=== PATIENT | male | born 1975 | race Caucasian/White ===

== ENCOUNTER 2024-02-16 17:37 | Emergency (ER) | payer OTHER, SELFPAY ==
--- NOTE | ~2024-02-16 | CT_ITS ---
CLINICAL INDICATION: Anemia. Now with black tarry stool since colonoscopy was performed one week karoline ier. COMPARISON: None. TECHNIQUE: Multiple contiguous axial images of the abdomen and pelvis were performed following the ad ministration of with 100 mL Omnipaque-350 intravenous contrast The dose-length product (DLP) was 644.66 mGy-cm. Automated exposure control and iterative reconstruction technique were employed. FINDINGS/OBSERVATIONS: Visualized lower thorax: Indeterminate density within the superior segment of the left lower lobe on the first cut of the CT e xamination, incompletely evaluated. The remainder of the bilateral lung bases are clear. The heart is of normal size, without pericardial effusion. Liver: The liver enhances homogeneously, and is not enlarged measuring 15 cm in longitudinal dimension. Gallbladder and biliary system: The gallbladder is surgically absent. Pancreas: The pancreas enhances homogeneously without ductal dilatation. Spleen: The spleen enhances homogeneously and is not enlarged measuring 10 cm in longitudinal dimension. Kidneys: The bilateral kidneys enhance symmetrically without hydronephrosis or renal calculi. Adrenal glands: Unremarkable. Gastrointestinal tract: Mural thickening within the distal sigmoid colon with trace surrounding inflammatory change. Appendix: The air-filled appendix is of normal caliber (axial series, images 139 and 140) Vasculature: Unremarkable. No aneurysmal dilatation or significant stenosis. Lymph nodes: No pathologically enlarged or morphologically suspicious lymph nodes within the retroperitoneum or at the root of the mesentery. Pelvic structures: The bladder is distended, and otherwise unremarkable. The prostate gland is not enlarged. Body wall and musculoskeletal: Small fat-containing umbilical hernia. No significant degenerative disease within the lower thoracic or lumbosacral spine. IMPRESSION: Findings suggestive of a focal enteritis within the sigmoid colon, as detailed above. No findings to suggest GI hemorrhage, as detailed above. Reviewed, dictated and finalized at location A. [facility] [employer]
[2024-02-16 18:12] VITALS: BP 112/72; PULSE 74; RESP 16; TEMP 36.1; O2SAT 100
--- NOTE | 2024-02-16 18:17 | ED.DIZZY ---
HPI - Dizziness General Chief Complaint: Dizziness <ROSHAN Garcia Last Filed: 02/16/24 18:36> Stated Complaint: dizzy since recent colonoscopy <ROSHAN Garcia Last Filed: 02/16/24 18:36> Time Seen by Provider: 02/16/24 18:17 <ROSHAN Garcia Last Filed: 02/16/24 18:36> Focused HPI: Patient is a 48 y/o male who presents to the ED with c/o abdominal pain and nausea. Patient reports he was recently found to be anemic and underwent endoscopy/colonoscopy last Tuesday by Dr. Méndez at [facility]. Hemorrhoids were found and banded at that time. Otherwise biopsies have come back negative so far. Patient reports he has not been feeling well since then. Complains of weakness, nausea, rectal pain, burning pain in his upper abdomen, black tarry stools, some bright red bleeding noticed when he placed hemorrhoid cream internally. He has had decreased PO intake but states he forced himself to eat a sausage egg and cheese sandwich from [employer] this morning. Patient is currently on Nexium. Was also started on pepcid and carafate today. Denies vomiting, fevers. GENERAL: Well-appearing, well-nourished, and in no acute distress. HEAD: Normocephalic, atraumatic. CHEST: Clear to auscultation. ?No respiratory distress. HEART: Regular rate and rhythm.? ABD: Mild ttp in LLQ and epigastric region. No rebound. NEURO: ?Alert and oriented x3. Patient screened in triage and initial orders placed.? ?Additional care and disposition to be based upon?diagnostic testing and treatment. <ROSHAN Garcia Last Filed: 02/16/24 18:36> Source: patient <ROSHAN Garcia Last Filed: 02/16/24 18:36> Mode of arrival: ambulatory <ROSHAN Garcia Last Filed: 02/16/24 18:36> Limitations: no limitations <ROSHAN Garcia Last Filed: 02/16/24 18:36> History of Present Illness HPI Narrative: Agree with HPI above. <Soy Floyd MD - Last Filed: 02/17/24 01:17> Related Data Allergies/Adverse Reactions: Allergies Allergy/AdvReac Type Severity Reaction Status Date / Time propranolol AdvReac Dizziness Verified 02/16/24 20:34 pseudoephedrine AdvReac Hypertensio Verified 02/16/24 20:34 [facility] n <Gissel Groves PA-C - Last Filed: 02/16/24 18:36> Review of Systems Review of Systems: Endorses nausea without vomiting. No abdominal pain, no chest pain, shortness a breath, fever, chills, constipation, dysuria. <Soy Floyd MD - Last Filed: 02/17/24 01:17> All systems reviewed & are unremarkable except as noted in HPI and below (MSE) <Soy Floyd MD - Last Filed: 02/17/24 01:17> Exam Narrative: GENERAL: [Well-appearing, well-nourished, and in no acute distress.] HEAD: [Normocephalic, atraumatic.] EYES: [PERRLA and EOMI.] ENT: Nares clear, no rhinorrhea or epistaxis. Mucous membranes moist. NECK: Supple. CHEST: [Clear to auscultation. No respiratory distress.] HEART: [Regular rate and rhythm]. No murmur heard. [Normal peripheral pulses.] ABDOMEN: [Soft, nondistended], [nontender], [No rigidity or guarding] EXTREMITIES: Normal range of motion. [No edema.] SKIN: Warm, dry, no rash. NEURO: [No focal deficits]. Alert and oriented [x3.] PSYCH: [Normal mood and affect.] <Soy Floyd MD - Last Filed: 02/17/24 01:17> Course Vital Signs Vital signs: Vital Signs Temperature 36.1 C L 02/16/24 18:12 Pulse Rate 74 02/16/24 18:12 Respiratory Rate 16 02/16/24 18:12 Blood Pressure 112/72 02/16/24 18:12 Pulse Oximetry 100 02/16/24 18:12 Oxygen Delivery Room Air 02/16/24 18:12 Temperature 36.1 C L 02/16/24 18:12 Pulse Rate 88 02/16/24 22:55 Respiratory Rate 18 02/16/24 22:55 Blood Pressure 128/78 02/16/24 22:55 Pulse Oximetry 100 02/16/24 22:55 Oxygen Delivery Room Air 02/16/24 18:12 <Gissel Groves PA-C - Last Filed: 02/16/24 18:36> Vital Signs Temperature 36.1 C L 02/16/24 18:12 Pulse Rate 74 02/16/24 18:12 Respiratory Rate 16 02/16/24 18:12 Blood Pressure 112/72 02/16/24 18:12 Pulse Oximetry 100 02/16/24 18:12 Oxygen Delivery Room Air 02/16/24 18:12 Temperature 36.1 C L 02/16/24 18:12 Pulse Rate 88 02/16/24 22:55 Respiratory Rate 18 02/16/24 22:55 Blood Pressure 128/78 02/16/24 22:55 Pulse Oximetry 100 02/16/24 22:55 Oxygen Delivery Room Air 02/16/24 18:12 <Soy Floyd MD - Last Filed: 02/17/24 01:17> MDM - Dizziness MDM Narrative Medical decision making narrative: MSE by [facility] in triage. <Gissel Groves PA-C - Last Filed: 02/16/24 18:36> MSE by [facility] in triage. 48-year-old male with recent endoscopy and colonoscopy 8 days prior at outside facility. He had hemorrhoids band that were internal. He had an initial anemia that prompted him to get endoscopy by his GI doctor. He also had biopsies done and was found to have chronic gastritis. Patient has been on PPI for over 10 years. Patient reports lightheaded feeling, dizziness and black tarry stools, onset of the symptoms were after his colonoscopy and endoscopy with banding. He otherwise appears well not any acute distress and has normal vital signs without any tachycardia, fever, hypoxia or blood pressure concerns. Soft not tender nondistended abdomen overall appears well. Does report mild nausea and headache presently. Differential diagnosis does include GI bleeding from his recent internal hemorrhoids, peptic ulcer disease, colitis, diverticulitis. Less likely active GI bleeding given his stable vitals and duration of symptoms. Blood work was obtained and a CT scan with contrast was ordered. He was given Reglan, diphenhydramine, fluid bolus and Tylenol for his symptom control. started on Protonix here in the ED. Patient's laboratory studies are reassuring, no leukocytosis with a white count of 5.2. Hemoglobin is 11.4 and stable from his baseline levels according to the patient. Microcytic with MCV of 77. Normal platelets. Electrolyte panel within normal limits, normal renal and hepatic function panel. Negative lipase Patient CT scan shows evidence of focal enteritis within the sigmoid colon, no evidence of GI hemorrhage or bleeding. Patient was re-evaluated had symptomatic improvement after medications and therapies. I discussed the CT findings with him and discussion on treatment plans including potential for antibiotics. He states he was treated for colitis before with very similar findings success with antibiotics. Will start him on Rocephin here in the ED and sent home with Augmentin. Patient has a GI doctor that he sees outpatient and I instructed him to follow-up with them and his primary care provider on a short-term basis or return with any new or worsening symptoms including lightheadedness, dizziness, syncope, abdominal pain, bloody bowel movements. Patient expressed understanding of these instructions and was stable for discharge at this time. Patient's repeat vital signs were normal. <Soy Floyd MD - Last Filed: 02/17/24 01:17> Medical Records Attestation: I reviewed the patient's medical records. <Soy Floyd MD - Last Filed: 02/17/24 01:17> Lab Data Attestation: I reviewed the patient's lab results. <Soy Floyd MD - Last Filed: 02/17/24 01:17> Result diagrams: 02/16/24 20:35 02/16/24 20:35 <Gissel Grovse PA-C - Last Filed: 02/16/24 18:36> Labs: Lab Results 02/16/24 Range/Units 20:35 WBC 5.2 (4.5-10.0) K/mm3 RBC 4.86 (4.6-6.20) M/mm3 Hgb 11.4 L (14.0-18.0) g/dL Hct 37.4 L (42.0-52.0) % MCV 77.0 L (80-100) fl MCH 23.5 L (26-34) pg MCHC 30.5 L (32-36) g/dl RDW 17.9 H (11.5-14.5) % Plt Count 321 (150-375) k/mm3 MPV 9.8 (7.4-10.4) fl Immature Gran % (Auto) 0.2 (0-0.5) % Neut % (Auto) 52.7 (45.5-73.1) % Lymph % (Auto) 35.6 (18.3-44.2) % [place] % (Auto) 9.4 H (2.6-8.5) % Eos % (Auto) 1.5 (0-4.4) % Baso % (Auto) 0.6 (0.2-1.2) % Lymph # (Auto) 1.86 (0.9-3.2) K/mm3 [place] # (Auto) 0.5 (0.1-0.6) K/mm3 Eos # (Auto) 0.1 (0-0.3) K/mm3 Baso # (Auto) 0.0 (0.0-0.1) K/mm3 Abs Immat Gran (auto) 0.01 (0.00-0.031) K/mm3 Absolute Neuts (auto) 2.8 (1.3-6.7) K/mm3 Absolute Nucleated RBC 0.000 (0.0-0.012) K/mm3 Nucleated RBC % 0.0 (0.0-0.2) % Sodium 139 (137-145) mmol/L Potassium 3.8 (3.4-5.0) mmol/L Chloride 103 (98-107) mmol/L Carbon Dioxide 29 (22-30) mmol/L Anion Gap 7 (4-12) mmol/L BUN 16 (9-20) mg/dL Creatinine 1.00 (0.7-1.3) mg/dL Estim Creat Clear Calc 92 ml/min Estimated GFR > 60 (59 - ) Glucose 92 (65-110) mg/dL Calcium 9.2 (8.4-10.2) mg/dL Magnesium 2.2 (1.6-2.3) mg/dL Total Bilirubin 0.5 (0.2-1.3) mg/dL AST 25 (17-59) U/L ALT 20 (6-50) U/L Alkaline Phosphatase 60 (38-126) U/L Total Protein 8.0 (6.3-8.2) g/dL Albumin 4.3 (3.5-5.1) g/dL Lipase 56 (23-300) U/L <Gissel Groves PA-C - Last Filed: 02/16/24 18:36> Lab Results 02/16/24 Range/Units 20:35 WBC 5.2 (4.5-10.0) K/mm3 RBC 4.86 (4.6-6.20) M/mm3 Hgb 11.4 L (14.0-18.0) g/dL Hct 37.4 L (42.0-52.0) % MCV 77.0 L (80-100) fl MCH 23.5 L (26-34) pg MCHC 30.5 L (32-36) g/dl RDW 17.9 H (11.5-14.5) % Plt Count 321 (150-375) k/mm3 MPV 9.8 (7.4-10.4) fl Immature Gran % (Auto) 0.2 (0-0.5) % Neut % (Auto) 52.7 (45.5-73.1) % Lymph % (Auto) 35.6 (18.3-44.2) % [place] % (Auto) 9.4 H (2.6-8.5) % Eos % (Auto) 1.5 (0-4.4) % Baso % (Auto) 0.6 (0.2-1.2) % Lymph # (Auto) 1.86 (0.9-3.2) K/mm3 [place] # (Auto) 0.5 (0.1-0.6) K/mm3 Eos # (Auto) 0.1 (0-0.3) K/mm3 Baso # (Auto) 0.0 (0.0-0.1) K/mm3 Abs Immat Gran (auto) 0.01 (0.00-0.031) K/mm3 Absolute Neuts (auto) 2.8 (1.3-6.7) K/mm3 Absolute Nucleated RBC 0.000 (0.0-0.012) K/mm3 Nucleated RBC % 0.0 (0.0-0.2) % Sodium 139 (137-145) mmol/L Potassium 3.8 (3.4-5.0) mmol/L Chloride 103 (98-107) mmol/L Carbon Dioxide 29 (22-30) mmol/L Anion Gap 7 (4-12) mmol/L BUN 16 (9-20) mg/dL Creatinine 1.00 (0.7-1.3) mg/dL Estim Creat Clear Calc 92 ml/min Estimated GFR > 60 (59 - ) Glucose 92 (65-110) mg/dL Calcium 9.2 (8.4-10.2) mg/dL Magnesium 2.2 (1.6-2.3) mg/dL Total Bilirubin 0.5 (0.2-1.3) mg/dL AST 25 (17-59) U/L ALT 20 (6-50) U/L Alkaline Phosphatase 60 (38-126) U/L Total Protein 8.0 (6.3-8.2) g/dL Albumin 4.3 (3.5-5.1) g/dL Lipase 56 (23-300) U/L <Soy Floyd MD - Last Filed: 02/17/24 01:17> Imaging Data Attestation: I personally reviewed and interpreted this imaging study as follows: <Soy Floyd MD - Last Filed: 02/17/24 01:17> Radiologist's impression: Impressions Abdomen/Pelvis CT 02/16/24 21:39 IMPRESSION: Findings suggestive of a focal enteritis within the sigmoid colon, as detailed above. No findings to suggest GI hemorrhage, as detailed above. <Soy Floyd MD - Last Filed: 02/17/24 01:17> Discharge Plan Discharge Clinical Impression: Enteritis, History of GI bleed <Gissel Groves PA-C - Last Filed: 02/16/24 18:36> Patient Disposition: Home, Self-Care <Gissel Groves PA-C - Last Filed: 11/07/24 18:36> Condition: Stable <Gissel Groves PA-C - Last Filed: 02/16/24 18:36> Instructions: Antibiotic Form, Infectious Colitis (ED), Enteritis (ED) <Gissel Groves PA-C - Last Filed: 02/16/24 18:36> Additional Instructions: We will send you home with a 7 day course of antibiotics. Follow-up with your primary care provider and GI doctor outpatient. Return with any new or worsening symptoms or new concerns. <Gissel Groves PA-C - Last Filed: 02/16/24 18:36> Prescriptions: New amoxicillin-pot clavulanate 875-125 mg tablet 1 tablet PO Q12H 7 Days Qty: 14 0RF <Gissel Groves PA-C - Last Filed: 02/16/24 18:36> Follow-up/Referrals: PHYSICIAN,NETWORK LIAISON [Non-Staff] - <Gissel Groves PA-C - Last Filed: 02/16/24 18:36> Time of Disposition: 22:19 <Gissel Groves PA-C - Last Filed: 02/16/24 18:36> 22:19 <Soy Floyd MD - Last Filed: 02/17/24 01:17>
[2024-02-16 20:45] LABS: Basophils Percent Auto 0.6 % (0.2-1.2); Eosinophils Absolute Auto 0.1 K/mm3 (0-0.3); Eosinophils Percent Auto 1.5 % (0-4.4); Hematocrit 37.4 % (42.0-52.0); Hemoglobin 11.4 g/dL (14.0-18.0); Immature Granulocyte Absolute 0.01 K/mm3 (0.00-0.031); Immature Granulocyte Percent A 0.2 % (0-0.5); Lymphocytes Absolute Auto 1.86 K/mm3 (0.9-3.2); Lymphocytes Percent Auto 35.6 % (18.3-44.2); Mean Corpuscular HGB Conc 30.5 g/dl (32-36); Mean Corpuscular Hemoglobin 23.5 pg (26-34); Mean Platelet Volume 9.8 fl (7.4-10.4); Monocytes Absolute Auto 0.5 K/mm3 (0.1-0.6); Monocytes Percent Auto 9.4 % (2.6-8.5); Neutrophils Absolute Auto 2.8 K/mm3 (1.3-6.7); Neutrophils Percent Auto 52.7 % (45.5-73.1); Platelet Count Result 321 k/mm3 (150-375); Red Blood Count 4.86 M/mm3 (4.6-6.20); Red Cell Distribution Width 17.9 % (11.5-14.5); White Blood Count 5.2 K/mm3 (4.5-10.0)
[2024-02-16] MEDS: SODIUM CHLORIDE 0.9% IV 1,000 ML 999 ML IV CONT (20:53)
[2024-02-16] MEDS: PANTOPRAZOLE SODIUM IV 40 MG VIAL IV PUSH (20:54)
[2024-02-16] MEDS: diphenhydrAMINE HCl INJ 50 MG/ML VIAL 25 MG IV PUSH (20:54)
[2024-02-16] MEDS: ACETAMINOPHEN 500 MG TABLET 1000 MG PO (20:54)
[2024-02-16] MEDS: METOCLOPRAMIDE HCL INJ 10 MG/2 ML VIAL IV PUSH (20:54)
[2024-02-16 20:56] LABS: Alanine Aminotransferase 20 U/L (6-50); Albumin Level 4.3 g/dL (3.5-5.1); Alkaline Phosphatase 60 U/L (38-126); Anion Gap 7 mmol/L (4-12); Aspartate Amino Transferase 25 U/L (17-59); Bilirubin,Total 0.5 mg/dL (0.2-1.3); Blood Urea Nitrogen 16 mg/dL (9-20); Calcium 9.2 mg/dL (8.4-10.2); Carbon Dioxide 29 mmol/L (22-30); Chloride 103 mmol/L (98-107); Estimated CRCL calculation 92 ml/min; Estimated Glomerular Filt Rate > 60; Glucose 92 mg/dL (65-110); Lipase 56 U/L (23-300); Magnesium 2.2 mg/dL (1.6-2.3); Potassium 3.8 mmol/L (3.4-5.0); Sodium 139 mmol/L (137-145)
[2024-02-16 21:11] VITALS: BP 120/77; PULSE 81; PULSE 85; RESP 18; O2SAT 100
--- NOTE | 2024-02-16 22:37 | PC.NURSE ---
Dr. Tijerina verbalizes no need to draw blood cultures before administering antibiotics.
--- NOTE | 2024-02-16 22:54 | PC.NURSE ---
Urine was collected. Dr. Tijerina states he does not need urine sample anymore due to pt discharge.
[2024-02-16 22:55] VITALS: BP 128/78; PULSE 88; RESP 18; O2SAT 100
== END 2024-02-16 22:57 | disposition home or self-care (01) ==
PROVIDERS: Physician Assistant; Emergency Provider Student in an Organized Health Care Education/Training Program
DX: K52.9 Noninfective gastroenteritis and colitis, unspecified (principal)
CPT/HCPCS: 36415; 74177; 80053; 83690; 83735; 85025; 96361; 96365; 96375; 99284; A9270; J0696; J1200; J2470; J2765; J7030; Q9967

== ENCOUNTER 2024-03-16 15:49 | Emergency (ER) | payer OTHER, SELFPAY ==
--- NOTE | ~2024-03-16 | CT_ITS ---
CT abdomen pelvis w con Ordering provider: Gissel Groves PA-C History: 48 years Male with . colitis/enteritis, diarrhea, abd pain . Comparison: None. Technique: CT abdomen and pelvis with IV and without oral contrast. Automated exposure control and it erative reconstruction technique were employed. The dose-length product was 796.39 mGy-cm. 100 mL Omnipaque 350 was given IV. Findings: VISUALIZED LOWER CHEST: Minimal dependent atelectatic changes. UPPER ABDOMINAL ORGANS: Liver: Fat infiltration. Gallbladder: Status post cholecystectomy. Spleen: Normal. Stomach/duodenum: Normal. Pancreas: Normal. Adrenals: Normal. Kidneys: Normal. PELVIC ORGANS: The bladder is normal. BOWEL AND MESENTERY: Colon: No evidence of diverticulitis.. Fecal material is loaded in the colon. Normal appendix. Small Bowel: Normal. No obstruction. Peritoneum/mesentery: No free air or free fluid. No mesenteric lymphadenopathy. RETROPERITONEUM: Normal aorta. Atherosclerotic changes of the right iliac artery. No retroperitonea l lymphadenopathy. MUSCULOSKELETAL: Superficial soft tissues: The superficial soft tissues are normal. Bones: Normal spine. IMPRESSION: 1. No evidence of appendicitis, diverticulitis or intestinal obstruction. 2. Fat infiltration of the liver. Reviewed, dictated and finalized at location A. [employer]
[2024-03-16 15:51] VITALS: BP 117/74; PULSE 61; RESP 16; TEMP 36.3; O2SAT 100
--- NOTE | 2024-03-16 16:57 | ED_ITS ---
HPI - Abdominal Pain General Chief Complaint: Abdominal Pain <ROSHAN Garcia Last Filed: 03/16/24 17:09> Stated Complaint: worsening colitis <ROSHAN Garcia Last Filed: 03/16/24 17:09> Time Seen by Provider: 03/16/24 16:57 <ROSHAN Garcia Last Filed: 03/16/24 17:09> Focused HPI: Patient is a 48 y/o male who presents to the ED with c/o diarrhea and abdominal pain. Patient reports he has been having abdominal issues since the beginning of February after a colonoscopy. He has been seeing Dr. Méndez with GI at [facility]. States he was seen here on 02/19 and diagnosed with colitis/enteritis. Was rx'd Augmentin at that time. States symptoms have been worsening since this week. He saw a GI on Tuesday and was started on Cefdinir and Flagyl. Denies any improvement of symptoms since then. Complains of persistent diarrhea, nausea with dry heaving, midline abdominal pain, abdominal bloating, dizziness/lightheadedness, fatigue. Reports intermittent dark red blood mixed in with stool. Denies fevers. GENERAL: Well-appearing, well-nourished, and in no acute distress. HEAD: Normocephalic, atraumatic. CHEST: Clear to auscultation. ?No respiratory distress. HEART: Regular rate and rhythm.? ABD: Mild diffuse tenderness throughout upper abdomen. Nondistended. Mildly hyperactive BS NEURO: ?Alert and oriented x3. Patient screened in triage and initial orders placed.? ?Additional care and disposition to be based upon?diagnostic testing and treatment. <ROSHAN Garcia Last Filed: 03/16/24 17:09> Source: patient and old records reviewed <ROSHAN Garcia Last Filed: 03/16/24 17:09> Mode of arrival: ambulatory <ROSHAN Garcia Last Filed: 03/16/24 17:09> Limitations: no limitations <ROSHAN Garcia Last Filed: 03/16/24 17:09> History of Present Illness HPI narrative: Patient 48-year-old gentleman presents emergency department chief complaint of diarrhea and abdominal pain. Patient reports he is followed by GI and palpable more ill and has been having diarrhea and abdominal pain. The patient was started on Flagyl and cefdinir by GI and they were attempting to get a CT scan as an outpatient patient was unable to get pre authorization from his insurance in a timely manner and given the significant pain was sent to the emergency department for evaluation. <Narendra Boo MD - Last Filed: 03/16/24 22:53> Related Data Allergies/Adverse Reactions: Allergies Allergy/AdvReac Type Severity Reaction Status Date / Time propranolol AdvReac Dizziness Verified 03/16/24 15:50 pseudoephedrine AdvReac Hypertensio Verified 03/16/24 15:50 [From Sudafed] n <Gissel Groves PA-C - Last Filed: 03/16/24 17:09> Review of Systems Review of Systems: A 10 system review of systems was completed on the patient and is negative except for what is stated in the HPI. Nursing and ancillary documentation was reviewed. <Narendra Boo MD - Last Filed: 03/16/24 22:53> Exam Narrative: GENERAL: Well-appearing, well-nourished, and in no acute distress. HEAD: Normocephalic, atraumatic. EYES: PERRLA and EOMI. ENT: Nares clear, no rhinorrhea or epistaxis. Mucous membranes moist. NECK: Supple. CHEST: Clear to auscultation. No respiratory distress. HEART: Regular rate and rhythm. No murmur heard. Normal peripheral pulses. ABDOMEN: Soft, diffusely tender to palpation, nondistended, normal active bowel sounds. EXTREMITIES: Normal range of motion. No edema. SKIN: Warm, dry, no rash. NEURO: No focal deficits. Alert and oriented x3. PSYCH: Normal mood and affect. <Narendra Boo MD - Last Filed: 03/16/24 22:53> Course Vital Signs Vital signs: Vital Signs Temperature 36.3 C L 03/16/24 15:51 Pulse Rate 61 03/16/24 15:51 Respiratory Rate 16 03/16/24 15:51 Blood Pressure 117/74 03/16/24 15:51 Pulse Oximetry 100 03/16/24 15:51 Oxygen Delivery Room Air 03/16/24 15:51 Temperature 36.3 C L 03/16/24 15:51 Pulse Rate 53 L 03/16/24 22:00 Respiratory Rate 18 03/16/24 22:00 Blood Pressure 112/75 03/16/24 19:56 Pulse Oximetry 100 03/16/24 22:00 Oxygen Delivery Room Air 03/16/24 15:51 <Gissel Groves PA-C - Last Filed: 03/16/24 17:09> Vital Signs Temperature 36.3 C L 03/16/24 15:51 Pulse Rate 61 03/16/24 15:51 Respiratory Rate 16 03/16/24 15:51 Blood Pressure 117/74 03/16/24 15:51 Pulse Oximetry 100 03/16/24 15:51 Oxygen Delivery Room Air 03/16/24 15:51 Temperature 36.3 C L 03/16/24 15:51 Pulse Rate 53 L 03/16/24 22:00 Respiratory Rate 18 03/16/24 22:00 Blood Pressure 112/75 03/16/24 19:56 Pulse Oximetry 100 03/16/24 22:00 Oxygen Delivery Room Air 03/16/24 15:51 <Narendra Boo MD - Last Filed: 03/16/24 22:53> MDM - Abdominal Pain MDM Narrative Medical decision making narrative: MSE by [facility] in triage. <Gissel Groves PA-C - Last Filed: 03/16/24 17:09> MSE by [facility] in triage. Differential diagnosis includes intra-abdominal infection, diverticulitis, colitis, abscess Laboratory studies were obtained on the patient showed normal CBC with white count 5.5 electrolytes are within normal limits lactic acid was 0.7 CT scan of the abdomen pelvis showed no acute abnormality The patient is instructed to continue his antibiotics and follow-up his GI specialist <Narendra Boo MD - Last Filed: 03/16/24 22:53> Lab Data Result diagrams: 03/16/24 20:36 03/16/24 18:20 <ROSHAN Garcia Last Filed: 03/16/24 17:09> Labs: Lab Results 03/16/24 03/16/24 03/16/24 Range/Units 18:20 20:36 22:18 WBC 5.5 (4.5-10.0) K/mm3 RBC 4.49 L (4.6-6.20) M/mm3 Hgb 10.7 L (14.0-18.0) g/dL Hct 34.8 L (42.0-52.0) % MCV 77.5 L (80-100) fl MCH 23.8 L (26-34) pg MCHC 30.7 L (32-36) g/dl RDW 16.8 H (11.5-14.5) % Plt Count 277 (150-375) k/mm3 MPV 9.8 (7.4-10.4) fl Immature Gran % (Auto) 0.2 (0-0.5) % Neut % (Auto) 50.7 (45.5-73.1) % Lymph % (Auto) 34.0 (18.3-44.2) % [place] % (Auto) 12.0 H (2.6-8.5) % Eos % (Auto) 2.7 (0-4.4) % Baso % (Auto) 0.4 (0.2-1.2) % Lymph # (Auto) 1.87 (0.9-3.2) K/mm3 [place] # (Auto) 0.7 H (0.1-0.6) K/mm3 Eos # (Auto) 0.2 (0-0.3) K/mm3 Baso # (Auto) 0.0 (0.0-0.1) K/mm3 Abs Immat Gran (auto) 0.01 (0.00-0.031) K/mm3 Absolute Neuts (auto) 2.8 (1.3-6.7) K/mm3 Absolute Nucleated RBC 0.000 (0.0-0.012) K/mm3 Nucleated RBC % 0.0 (0.0-0.2) % Sodium 138 (137-145) mmol/L Potassium 4.3 (3.4-5.0) mmol/L Chloride 104 (98-107) mmol/L Carbon Dioxide 29 (22-30) mmol/L Anion Gap 5 (4-12) mmol/L BUN 14 (9-20) mg/dL Creatinine 1.10 (0.7-1.3) mg/dL Estim Creat Clear Calc 84 ml/min Estimated GFR > 60 (59 - ) Glucose 91 (65-110) mg/dL Lactic Acid 0.6 L (0.7-2.0) mmol/L Calcium 9.7 (8.4-10.2) mg/dL Total Bilirubin 0.6 (0.2-1.3) mg/dL AST 45 (17-59) U/L ALT 77 H (6-50) U/L Alkaline Phosphatase 63 (38-126) U/L Total Protein 8.0 (6.3-8.2) g/dL Albumin 4.9 (3.5-5.1) g/dL Lipase 63 (23-300) U/L Urine Color Pending Urine Appearance Pending Urine pH Pending Ur Specific [place] Pending Urine Protein Pending Urine Glucose (UA) Pending Urine Ketones Pending Ur Blood (Man) Pending Urine Nitrate Pending Urine Bilirubin Pending Urine Urobilinogen Pending Leukocyte Esterase Rfl Pending <Gissel Groves PA-C - Last Filed: 03/16/24 17:09> Lab Results 03/16/24 03/16/24 03/16/24 Range/Units 18:20 20:36 22:18 WBC 5.5 (4.5-10.0) K/mm3 RBC 4.49 L (4.6-6.20) M/mm3 Hgb 10.7 L (14.0-18.0) g/dL Hct 34.8 L (42.0-52.0) % MCV 77.5 L (80-100) fl MCH 23.8 L (26-34) pg MCHC 30.7 L (32-36) g/dl RDW 16.8 H (11.5-14.5) % Plt Count 277 (150-375) k/mm3 MPV 9.8 (7.4-10.4) fl Immature Gran % (Auto) 0.2 (0-0.5) % Neut % (Auto) 50.7 (45.5-73.1) % Lymph % (Auto) 34.0 (18.3-44.2) % [place] % (Auto) 12.0 H (2.6-8.5) % Eos % (Auto) 2.7 (0-4.4) % Baso % (Auto) 0.4 (0.2-1.2) % Lymph # (Auto) 1.87 (0.9-3.2) K/mm3 [place] # (Auto) 0.7 H (0.1-0.6) K/mm3 Eos # (Auto) 0.2 (0-0.3) K/mm3 Baso # (Auto) 0.0 (0.0-0.1) K/mm3 Abs Immat Gran (auto) 0.01 (0.00-0.031) K/mm3 Absolute Neuts (auto) 2.8 (1.3-6.7) K/mm3 Absolute Nucleated RBC 0.000 (0.0-0.012) K/mm3 Nucleated RBC % 0.0 (0.0-0.2) % Sodium 138 (137-145) mmol/L Potassium 4.3 (3.4-5.0) mmol/L Chloride 104 (98-107) mmol/L Carbon Dioxide 29 (22-30) mmol/L Anion Gap 5 (4-12) mmol/L BUN 14 (9-20) mg/dL Creatinine 1.10 (0.7-1.3) mg/dL Estim Creat Clear Calc 84 ml/min Estimated GFR > 60 (59 - ) Glucose 91 (65-110) mg/dL Lactic Acid 0.6 L (0.7-2.0) mmol/L Calcium 9.7 (8.4-10.2) mg/dL Total Bilirubin 0.6 (0.2-1.3) mg/dL AST 45 (17-59) U/L ALT 77 H (6-50) U/L Alkaline Phosphatase 63 (38-126) U/L Total Protein 8.0 (6.3-8.2) g/dL Albumin 4.9 (3.5-5.1) g/dL Lipase 63 (23-300) U/L Urine Color Pending Urine Appearance Pending Urine pH Pending Ur Specific [place] Pending Urine Protein Pending Urine Glucose (UA) Pending Urine Ketones Pending Ur Blood (Man) Pending Urine Nitrate Pending Urine Bilirubin Pending Urine Urobilinogen Pending Leukocyte Esterase Rfl Pending <Narendra Boo MD - Last Filed: 03/16/24 22:53> Imaging Data Radiologist's impression: ITS Impressions Abdomen/Pelvis CT 03/16/24 21:35 IMPRESSION: 1. No evidence of appendicitis, diverticulitis or intestinal obstruction. 2. Fat infiltration of the liver. <Gissel Groves PA-C - Last Filed: 03/16/24 17:09> ITS Impressions Abdomen/Pelvis CT 03/16/24 21:35 IMPRESSION: 1. No evidence of appendicitis, diverticulitis or intestinal obstruction. 2. Fat infiltration of the liver. <Narendra Boo MD - Last Filed: 03/16/24 22:53> Discharge Plan Discharge Clinical Impression: Abdominal pain <ROSHAN Garcia Last Filed: 03/16/24 17:09> Patient Disposition: Home, Self-Care <Gissel Groves PA-C - Last Filed: 03/16/24 17:09> Condition: Stable <ROSHAN Garcia Last Filed: 03/16/24 17:09> Instructions: Antibiotic Form, Abdominal Pain (ED) <Gissel Groves PA-C - Last Filed: 03/16/24 17:09> Additional Instructions: Please follow-up with your GI specialist <Gissel Groves PA-C - Last Filed: 03/16/24 17:09> Prescriptions: No Action amoxicillin-pot clavulanate 875-125 mg tablet 1 tablet PO Q12H 7 Days Qty: 14 0RF <ROSHAN Garcia Last Filed: 03/16/24 17:09> Follow-up/Referrals: PHYSICIAN NOT ON STAFF,NONSTAFF [Non-Staff] - <ROSHAN Garcia Last Filed: 03/16/24 17:09> Time of Disposition: 22:52 <ROSHAN Garcia Last Filed: 03/16/24 17:09> 22:52 <Narendra Boo MD - Last Filed: 03/16/24 22:53>
[2024-03-16 18:41] LABS: Lactic Acid Reflex 0.6 mmol/L (0.7-2.0)
[2024-03-16 18:48] LABS: Alanine Aminotransferase 77 U/L (6-50); Albumin Level 4.9 g/dL (3.5-5.1); Alkaline Phosphatase 63 U/L (38-126); Anion Gap 5 mmol/L (4-12); Aspartate Amino Transferase 45 U/L (17-59); Bilirubin,Total 0.6 mg/dL (0.2-1.3); Blood Urea Nitrogen 14 mg/dL (9-20); Calcium 9.7 mg/dL (8.4-10.2); Carbon Dioxide 29 mmol/L (22-30); Chloride 104 mmol/L (98-107); Estimated CRCL calculation 84 ml/min; Estimated Glomerular Filt Rate > 60; Glucose 91 mg/dL (65-110); Lipase 63 U/L (23-300); Potassium 4.3 mmol/L (3.4-5.0); Sodium 138 mmol/L (137-145)
--- NOTE | 2024-03-16 19:55 | PC.NURSE ---
Pt states he has colitis and enteritis and for the last month has had nausea, diarrhea, and black sooty stools
[2024-03-16 19:56] VITALS: BP 112/75; PULSE 55; RESP 18; O2SAT 100
[2024-03-16] MEDS: HYDROcodone/acetaminophen (*CRX) 5-325 MG TABLET 1 TAB PO (20:01)
[2024-03-16] MEDS: ONDANSETRON INJ 4 MG/2 ML VIAL IV PUSH (20:04)
[2024-03-16] MEDS: SODIUM CHLORIDE 0.9% IV 1,000 ML 999 ML IV CONT (20:04)
--- NOTE | 2024-03-16 20:38 | PC.NURSE ---
Pt states he has a migraine and is requesting Benadryl, provider notified
[2024-03-16 20:47] LABS: Basophils Percent Auto 0.4 % (0.2-1.2); Eosinophils Absolute Auto 0.2 K/mm3 (0-0.3); Eosinophils Percent Auto 2.7 % (0-4.4); Hematocrit 34.8 % (42.0-52.0); Hemoglobin 10.7 g/dL (14.0-18.0); Immature Granulocyte Absolute 0.01 K/mm3 (0.00-0.031); Immature Granulocyte Percent A 0.2 % (0-0.5); Lymphocytes Absolute Auto 1.87 K/mm3 (0.9-3.2); Mean Corpuscular HGB Conc 30.7 g/dl (32-36); Mean Corpuscular Hemoglobin 23.8 pg (26-34); Mean Corpuscular Volume 77.5 fl (80-100); Mean Platelet Volume 9.8 fl (7.4-10.4); Monocytes Absolute Auto 0.7 K/mm3 (0.1-0.6); Neutrophils Absolute Auto 2.8 K/mm3 (1.3-6.7); Neutrophils Percent Auto 50.7 % (45.5-73.1); Platelet Count Result 277 k/mm3 (150-375); Red Blood Count 4.49 M/mm3 (4.6-6.20); Red Cell Distribution Width 16.8 % (11.5-14.5); White Blood Count 5.5 K/mm3 (4.5-10.0)
[2024-03-16] MEDS: PROCHLORPERAZINE EDISYLATE 10 MG/2 ML VIAL IV PUSH (20:56)
[2024-03-16] MEDS: diphenhydrAMINE HCl INJ 50 MG/ML VIAL IV PUSH (20:56)
[2024-03-16 22:00] VITALS: PULSE 53; RESP 18; O2SAT 100
[2024-03-16 22:24] LABS: Add Urine Microscopic? NO; Appearance Urine Clear (Clear); Bilirubin Urine Negative (Negative); Blood Urine Negative (Negative); Color Urine Yellow (Yellow); Glucose Urine UA Negative (Negative); Ketones Urine Negative (Negative); Leukocyte Esterase Ur Negative LEU/UL (Negative); Nitrate Urine Negative (Negative); Protein Urine Negative (Negative); Specific Grav Ur > 1.045 (1.001-1.035); Urobilinogen Urine 0.2 mg/dL (<2.0)
[2024-03-16 23:01] VITALS: RESP 20; O2SAT 100
[2024-03-16 23:02] VITALS: BP 107/47; PULSE 56; RESP 18; O2SAT 100
== END 2024-03-16 23:03 | disposition home or self-care (01) ==
PROVIDERS: Physician Assistant; Emergency Provider Emergency Medicine
DX: R10.9 Unspecified abdominal pain (principal)
CPT/HCPCS: 36415; 74177; 80053; 81003; 83605; 83690; 85025; 96361; 96374; 96375; 99284; A9270; J0780; J1200; J2405; J7030; Q9967

== ENCOUNTER 2024-07-26 07:38 | Outpatient (CLI) | payer OTHER, SELFPAY ==
--- OUTSIDE RECORDS SUMMARY | 2024-07-26 07:42 | XMS_ITS | Data Portability ---
Author Organization [facility] [place] - Inocencio bowmanedisonVALDEMAR_NM_[place] [facility] [facility] Address [address] [place] [address] Care Team Providers Care Prize Coordinator Name Role Phone SANIYA NDIAYE Primary Care Provider Assessment No assessment recorded. Plan of Treatment Reminders Order Date Submit Date Provider Last Modified By Organization Details Last Modified Time Details Appointments None recorded. Lab None recorded. Referral None recorded. Procedures esophagog astroduod enoscopy with esophagea l dilation (PROC) - ASA 2EGD w/ DILATION 2015 016 [email or web address] Not available 6 14:31:35 Surgeries None recorded. Imaging electroca rdiogram 2018 019 [email or web address] [facility]-Office Orders (For Internal Use Only), [address] , [place], [address], 9 16:41:52 electroca rdiogram 2017 018 [email or web address] [facility]-Office Orders (For Internal Use Only), [address] , [place], [address], 8 22:26:21 event monitor 2017 018 [email or web address] [facility] In-Office Orders (For Internal Use Only), [address] , [place], [address], 8 15:06:15 electroca rdiogram 2017 018 [email or web address] [facility] In-Office Orders (For Internal Use Only), [address] , [place], [address], 8 12:47:50 electroca rdiogram 2016 017 [email or web address] [facility] In-Office Orders (For Internal Use Only), [address] , [place], [address], 7 12:53:44 Medication Orders propranol ol ER 80 mg capsule,2 4 hr,extend ed release 2017 018 INTERFACE [facility], [address] [place] [address], [place], [address], 8 17:25:01 Patient TargetsNo targets recorded. Patient Instructions Encounter Date Encounter Id Patient Instructions Last Modified By Organization Details Last Modified Time 11/12/2015 [id number] learning about swallowing problems Not available 11/12/2015 14:48:53 buckley's esophagus: care instructions Not available 11/12/2015 14:48:53 06/27/2018 [id number] (NOEMY) ankle brachial index* MARGARET Not available 07/03/2018 12:50:17 Reason for Referral None Reported. Results Created Date Observation Date Name Description Value Unit Range Abnormal Flag Note LastModifiedBy Organization Detail LastModifiedTime 11/20/19 16 11/20/2015 patho logy study accession number [id number] Not Available [facility]* [address], [place], [address], 11/24/2015 18:44:10 11/20/19 16 11/20/2015 patho logy study final microscopic diagnosis A. Esoph dominga, Biops y: - UNREM ARKAB LE SQUAM OUS MUCOS A. - No evide nce of funga l organ isms, Eosin ophil ic Esoph agiti s or [place] tt's speci jesusita d colum star epith elium (inte sil l metap lasia ) (Alci an Blue/ PAS stain exami leonard). Not Available [facility]* [address] [place], [address], 11/24/2015 18:44:10 11/20/19 16 11/20/2015 patho logy study clinical findings/spe cial requests A. Esoph dominga - R/O (EoE) Eosin ophil ic Esoph agiti s Mild Schat zki ring. Dilat ed. Biops ied to rule out eosin ophil ic esoph agiti s. No gross lesio ns in the stoma ch. Debbie l exami leonard duode num. Not Available [facility]* [address], [place], [address], 11/24/2015 18:44:10 11/20/19 16 11/20/2015 patho logy study gross description Recei liberty is a forma paula fille d speci men conta iner label ed with the patie nt's name, medic al recor d numbe r and esop hagea l biops y . It conta ins four porti ons of white mucos al tissu e rangi ng from 0.6 cm. to 0.2 cm. in great est dimen santhosh. The speci men is entir bela submi tted in one casse tte. (AM/a mcfa 04:45 PM) Perfo rmed by [facility], [address] ,[place] ,[address] Not Available [facility]* [address], [place], [address], 11/24/2015 18:44:10 02/02/20 16 11/11/2015 elect roccelso diogr am No observ ation record ed. [facility] Orders (For Internal Use Only) [address], [place], [address], 02/02/2016 17:08:08 12/08/19 17 11/09/2016 elect roccelso diogr am No observ ation record ed. [facility] (For Internal Use Only) [address] [place], [address], 12/10/2016 11:48:53 10/15/19 18 09/02/2017 elect jose armando reinagr am No observ ation record ed. [email or web address] [facility] Orders (For Internal Use Only) [address], [place], [address], 10/17/2017 15:33:59 01/25/20 18 09/02/2017 event monit or No observ ation record ed. [email or web address] Not Available 01/09 15:11:32 04/20/19 19 08/29/2017 XR, chest No observ ation record ed. BARCODE Not Available 2018 15:15:18 04/20/19 19 08/29/2017 elect jose armando reinagr am No observ ation record ed. BARCODE Not Available 2018 15:15:18 07/04/19 19 07/03/2018 (NOEMY) ankle brach ial index * No observ ation record ed. [email or web address] [facility]) [address] [facility], [place], [address], 07/03/2018 13:00:10 07/26/19 19 06/27/2018 elect jose armando reinagr am No observ ation record ed. [email or web address] [facility] Orders (For Internal Use Only) [address], [place], [address], 07/27/2018 06:28:38 Result Notes None recorded. Problems Name Problem SNOMED Code Status Onset Date Resolution Date Notes Provider Name and Address Organization Details Recorded Time Palpitatio ns 72230544 Active LILIYA Brewer [address] [facility] [address], [place], [address], [facility] 6 14:27:21 Supraventr icular tachycardi a 5258152 Active h/o ablation at [facility] LILIYA Brewer [address] [facility] [address], [place], [address], [facility] 6 14:27:21 Sinus tachycardi a 41808329 Active Confirmed by [employer] 12/2013, rates peaking 120-130 Shilpa Brooks, [employer] [address] [place] [address], [place], [address], [facility] 6 14:31:35 Migraine 87684157 Active Shilpa Brooks [employer] [address] [place] [address], [place], [address], [facility] 6 14:27:21 Dysphagia 93888721 Active Shilpa Brooks, [employer]ER [address] [place] [address], [place], [address], [facility] 6 14:31:35 Globus sensation Active Shilpa Brooks, [employer] [address] [place] [address], [place], [address], [facility] 6 14:31:35 Buckley's esophagus 575468708 Active Shilpa Brooks, [employer]PLY [employer]ER [address] [place] [address], [place], [address], [facility] 6 14:31:35 Gastroesop hageal reflux disease without esophagiti s 725138238 Active Shilpa Brooks, [employer] [address] [place] [address], [place], [address], [facility] 6 14:31:35 Problem Notes None recorded. Procedures Surgical History Date Name Laterality Status Provider Name and Address Organization Details Recorded Time 02/07/20 14 Echo completed Nik Patel MD [address] [place] [address], [place], [address], [facility] 05/03/2014 17:55:33 04/11/19 07 EP Study/Ablation completed Nik Patel MD [address] [place] [address], [place], [address], [facility] 11/17/2013 17:09:06 04/11/19 07 Cardiac Surgery completed Emil Dumont [facility] 01/23/2014 16:04:23 Cholecystectomy completed Nik Patel MD [address] [facility] [address], [place], [address], [facility] 11/11/2015 13:05:24 Knee Surgery completed Nik Patel MD [address] [facility] [address], [place], [address], [facility] 11/11/2015 13:05:24 Imaging Results Imaging Date Name Status LastModified by Organization Details LastModified Time 11/11/2015 electrocardiogram completed [facility] (For Internal Use Only) [address] [place], [address], 02/02/2016 17:08:08 11/09/2016 electrocardiogram completed [email or web address] [facility] (For Internal Use Only) [address] [place], [address], 12/10/2016 11:48:53 09/02/2017 electrocardiogram completed [email or web address] [facility] (For Internal Use Only) [address] [place], [address], 10/17/2017 15:33:59 09/02/2017 event monitor completed [email or web address] Informatio n not available 01/24/2018 15:11:32 08/29/2017 XR, chest completed BAR[facility] Information no t available 04/20/2018 15:15:18 08/29/2017 electrocardiogram completed BAR[facility] Informa tion not available 04/20/2018 15:15:18 07/03/2018 (NOEMY) ankle brachial index* completed [email or web address] [facility] [address] [place], [address], 07/03/2018 13:00:10 06/27/2018 electrocardiogram completed [facility] (For Internal Use Only) [address] [place], [address], 07/27/2018 06:28:38 Procedure Notes None recorded. Medical Equipment None Reported. Allergies No known drug allergies Medications Name Sig Start Date Stop Date Status Note LastModified by Organization Details LastModified Time propranolol ER 160 mg capsule,24 hr,extended release TAKE 1 CAPSULE DAILY 06/27 completed Not Available Not Available Not Available cetirizine 10 mg tablet Take 1 tablet every day by oral route as needed. active Not Available Not Available No t Available Nexium 40 mg capsule,del ayed release Take 1 capsule every day by oral route. 10/25 completed Not Available Not Available Not Available Flonase 50 mcg/actuati on nasal spray,suspe nsion Inhale 4 sprays every day by intranasa l route as needed. active Not Available Not Available No t Available propranolol ER 80 mg capsule,24 hr,extended release Take 1 capsule every day by oral route as directed for 90 days. 2018 active Not Available Not Available Not Avai lable cefdinir 300 mg capsule Take 2 capsules every day by oral route. 08/11 completed Not Available Not Available Not Available nortriptyli ne 50 mg capsule Take 1 capsule every day by oral route. 11/09 completed Not Available Not Available Not Available Nexium active Not Available Not Availa ble Not Available Lodrane D 4 mg-60 mg capsule Take 1 capsule every day by oral route. 08/11 completed Not Available Not Available Not Available Vitals Date Recorded Heart rate Body height Body mass index (BMI) Body weight Systolic blood pressure Diastolic blood pressure Provider Name and Address Organization Details Last Updated DateTime 6 64 /min 185.42 cm 27.4 kg/m2 51201.4 97409 g 101 mm[Hg] 67 mm[Hg] Chika Ann [facility] 6 10:43:37 Date Recorded Body height Body mass index (BMI) Body weight Heart rate Oxygen saturation Oxygen saturation in Arterial blood by Pulse oximetry Systolic blood pressure Diastolic blood pressure Provider Name and Address Organization Details Last Updated DateTime 7 185.42 cm 26.9 kg/m2 04038.8 4 g 56 /min 98 % 98 % 124 mm[Hg] 80 mm[Hg] Eloise Marquez [facility] 7 10:14:23 Date Recorded Body height Body mass index (BMI) Body weight Heart rate Systolic blood pressure Diastolic blood pressure Provider Name and Address Organization Details Last Updated DateTime 8 185.42 cm 28.8 kg/m2 52229.5 7 g 56 /min 112 mm[Hg] 60 mm[Hg] Loc Costa [facility] 8 12:21:14 Date Recorded Body height Body mass index (BMI) Body weight Heart rate Respiratory rate Oxygen saturation Oxygen saturation in Arterial blood by Pulse oximetry Systolic blood pressure Diastolic blood pressure Provider Name and Address Organization Details Last Updated DateTime 8 185.42 cm 28.8 kg/m2 00964.1 4 g 70 /min 16 /min 97 % 97 % 108 mm[Hg] 64 mm[Hg] Ailyn Larkinn [facility] 8 16:02:09 Date Recorded Body height Body mass index (BMI) Body weight Heart rate Systolic blood pressure Diastolic blood pressure Provider Name and Address Organization Details Last Updated DateTime 9 185.42 cm 28.9 kg/m2 77423.7 3 g 68 /min 112 mm[Hg] 70 mm[Hg] Mely Guzman [facility] 9 16:06:17 Social History Question Answer Notes LastModified by Organizat ion Details LastModified Time Tobacco Smoking Status Never [facility]oker [facility] 10/23/2013 14:33:52 Do You Have An Advance Directive? No [email or web address] Information not available 11/11/2015 What Is Your Level Of Alcohol Consumption? Occasional Information not available 04/30/2014 What Is Your Level Of Caffeine Consumption? Occasional Coffee, Tea Information not available 04/30/2014 What Type Of Diet Are You Following? REGULAR Information not available 11/12/2015 Live Alone Or With Others? With Others Information not available 11/12/2015 Marital Status Informatio n not available 11/12/2015 What Was The Date Of Your Most Recent Tobacco Screening? 06/27/2018 Information not available 11/03/2018 How Many Children Do You Have? 3 Information not available 11/12/2015 Seat Belts Used Routinely Yes [email or web address] Information not available 11/11/2015 Do You Have Smoke And Carbon Monoxide Detectors In Your Home? Yes [email or web address] Information not available 11/11/2015 Are You Passively Exposed To Smoke? No [email or web address] Information not available 11/11/2015 Sex: Unknown Functional Status Question Answer Note LastModified by Organizat ion Details LastModified Time What is your exercise level? Occasional Information not available 11/11/2015 Mental Status None recorded. Family History Relationship Description Onset Age of this Age Resolved Age Notes LastModified by Organization Details LastModified Time Paternal Grandfather Malignant tumor of colon [email or web address] Not available 2015 14:27:24 Medical History Condition Response hypothyroidism N cancer N asthma N other gastrointestinal issue COPD N high blood pressure N acid reflux/GERD Y blood clots N diabetes mellitus N heart problems N high cholesterol N Past Encounters Encounter ID Performer Location Encounter Start Date Encounter Closed Date Diagnosis/Indication Diagnosis SNOMED-CT Code Diagnosis ICD10 Code Diagnosis Note [id number] [facility] [address] [facility],[address] [place] [address] 10/23/2013 14:19:43 10/26/2013 14:03:30 Palpitations 59962879 patient is status post atrial fibrillati on ablation in 2006. Now with recurrent tachycardi a. This episode lasted a few hours but resolved by the time he went to the emergency room. He had his heart rate checked while at work and he was in the 160s. He reports his pulse was irregular. I suspect this was a recurrence of his A. fib. We discussed a Holter monitor versus event recorder. He requested to wait until after his upcoming knee surgery. I think we'll just wait to see if he has any recurrence before ordering a monitor due to questionab le yield. patient instructed to return to the office, ER or medical office at work for an EKG is tachycardi a palpitatio ns recur. Also instructed to call me for frequent short-live d episodes so that I may get him a monitor [id number] [facility] [address] [place] [address] 10/31/2013 11:52:13 10/31/2013 15:33:17 Palpitations [id number] [facility] [address] [address] 11/13/2013 09:47:14 11/13/2013 11:01:28 Supraventricular tachycardia 2155893 He has a history of ablation for what sounds like AVNRT. The rates and time since ablation do not favor recurrence of this arrhythmia , but we will need to retrieve recordings from his [facility]. I would also [facility]. Sinus tachycardia [id number] I have access to one recording from 11/11, which shows sinus tachycardi a. If this is the ongoing rhythm, then treatment will be with hydration, exercise, and perhaps a beta tish. [id number] Chencho Hickman [facility] [address] [place] [address] 01/29/2014 16:19:08 01/29/2014 17:52:56 Sinus tachycardia 78891439 Monitoring confirmed sinus tachycardi a at the time of his symptoms. He continues to have episodes and is a agreeable to trying a beta tish. He also has migraines, so there could be an extra benefit to the medication . His physician has recommende d propranolo l. I will also have him get an echocardio gram since it has been years since this was done. [id number] [facility] [address] [place] [address] 04/30/2014 16:18:19 05/01/2014 08:50:33 Supraventricular tachycardia 2693245 He has a history of ablation for what sounds like AVNRT, and is currently being treated for sinus tachycardi a recorded on monitoring . He is tolerating the propranolo l well and feels good. Since there is a second purpose of treating migraine, is more palatable to continue a young patient on this medication . Palpitations 25209867 Co ntrolled with medication s, no changes required. [id number] [facility] [address] [address] 09/24/2014 10:00:48 09/24/2014 12:04:45 Supraventricular tachycardia 2400727 He has a history of ablation for what sounds like AVNRT, and is currently being treated for sinus tachycardi a recorded on monitoring . He is tolerating the propranolo l well and feels good. No changes required. We discussed the recent news regarding proton-pum p inhibitors and VT risk. There are some questions about that study since it was retrospect myke. His baseline CAD risk is small. 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 Migraine 51535149 This h as also improved since he has been on propranolo l. [id number] W Blake Patel MD [facility] [address] [facility],[address] [place] [address] 11/11/2015 12:19:01 11/12/2015 09:39:28 Sinus tachycardia 20740899 R00.0 Monitoring confirmed sinus tachycardi a at the time of his symptoms. He has had a good response to propranolo l for controllin g this problem. Palpitations 24846556 R0 0.2 Controlled with medication s, no changes required. [id number] LILIYA Brewer [facility] [address] [facility],[address] [place] [address] 11/12/2015 10:33:02 11/12/2015 11:08:06 Dysphagia 64426311 R13.10 39-year-ol d white male with recurrent solid mid cervical dysphagia 12 months. EGD September 2013 status post dilation with a 60 Moldovan dilator which helped. Only 1 eosinophil per high-power field Schedule EGD with dilation. Globus sensation 3744414 0 F45.8 Buckley's esophagus 3029 [address] K22.70 3 cm Buckley's negative for dysplasia on biopsies September 2013 Repeat EGD with biopsy to rule out dysplasia Gastroesop hageal reflux disease without esophagitis 833438610 K21.9 Stable acid reflux. Continue Nexium 40 mg daily Sinus tachycardia 519944 01 R00.0 Stable sinus tachycardi a controlled with propranolo l. Last seen by Dr. Patel November 11, 2015 [id number] Nik Patel MD [facility] [address] [facility],[address] [place] [address] 11/09/2016 09:54:52 11/09/2016 12:53:43 Supraventricular tachycardia 3091303 I47.1 He has a history of ablation for what sounds like AVNRT, and is currently being treated for sinus tachycardi a recorded on monitoring . He is tolerating the propranolo l well and feels good. No changes required.- Continue current meds. Palpitations 52979253 R0 0.2 Controlled with medication s, no changes required. [id number] Nik Patel MD [facility] [address] [facility] [address] [place] [address] 09/02/2017 12:05:15 09/02/2017 12:47:49 Sinus tachycardia 57684750 R00.0 Monitoring confirmed sinus tachycardi a at the time of his symptoms. He has had a good response to propranolo l for controllin g this problem (minimal symptoms 6926-6422) . Gastroesop hageal reflux disease without esophagitis 079864315 K21.9 He reports this problem is controlled . Palpitations 42674678 R0 0.2 Recent aggravatio n.Pattern suggests ectopy. Supraventr icular tachycardia 4600544 I47.1 He has a history of ablation for what sounds like AVNRT, and is currently being treated for sinus tachycardi a recorded on monitoring .No apparent recurrence . [id number] Nik Patel MD [facility],[address] [address] 10/25/2017 15:44:45 10/25/2017 17:26:37 Sinus tachycardia 44320934 R00.0 Reviewed monitor results.Glenis cope need less of propranolo l on some days especially with hot humid weather. He was actually bradycardi c in the daytime sometimes. -He may take a lower dose of propranolo l certain days. He will experiment to see what works for him. Palpitations 42415582 R0 0.2 Recent aggravatio n.Pattern suggests ectopy. This was confirmed by event monitoring for some of his symptoms. [id number] Nik Patel MD [facility] [address] [facility],[address] [address] 06/27/2018 15:23:22 06/27/2018 16:41:52 Sinus tachycardia 67867243 R00.0 Stable with medical therapy.Co ntinue propranolo l. Palpitations 43478560 R0 0.2 Pattern suggests ectopy. This was confirmed by event monitoring for some of his symptoms. Pain in lower limb [address] 006 M79.669 He has been found to have lower extremity venous disease, and was advised that he should be checke for LE arterial disease as well. Good pulses. Has some cramping with walking. Health Concerns Section Related Observation LastModified by Organization Detai ls LastModified Time None Recorded Concern Status LastModified by Organization Details LastModified Time None Recorded Advance Directives Directive N: Payers Encounter Date Sequence Insurance Name Policy Number Policy Love Covered Member ID Love Member ID Guarantor Name 11/12/2015 1 [employer] [facility] Ronny Nik Henderson [id number] Ronny Henderson 11/09/2016 1 [employer] [facility] Ronny Nik Henderson [id number] Colon Maixmo Henderson 09/02/2017 1 [place] - [place] PRIOR TO 2024 - [employer] - PRIME () Ronny Maximo Henderson [id number] Colon Maximo Henderson 10/25/2017 1 [place] - DOS PRIOR TO 2024 - [employer] - PRIME () Ronny Henderson [id number] Ronny Henderson 06/27/2018 1 [place] - DOS PRIOR TO 2024 - [employer] - PRIME () Colon Maximo Henderson [id number] Colon Maximo Henderson Notes Date Note Type Note Provider Name and Address Organization Details Recorded Time 11/12/2015 text/html 39-year-old whit e male returns for follow-up. He was last seen September 2013. He has recurrent dysphagia over the last 12 months. The dysphagia is mid cervical with meats mostly. He denies heartburn. He is on Nexium 40 mg daily. He also has chronic globus. EGD September 10, 2013 revealed short segment Buckley's esophagus spanning 3 cm negative for dysplasia. He was dilated with a 60 Moldovan dilator. Mid esophageal biopsies showed only 1 eosinophil per high-powered field. He denies weight loss, nausea, vomiting, diarrhea, constipation, hematochezia or melena LILIYA Brewer [address] [place] [address] [address], [place], [address], [facility] 11/12/2015 14:31:43 11/09/2016 text/html EP Office Visit He has a history of ablation for SVT, but persistent tachycardic palpitations which have proven to be associated with sinus tachycardia. He has been doing well with propranolol, with good relief from tachycardia. No changes 11/2016.Some medications reductions. No longer on nortryptyline. Nik Patel MD [address] [facility] [address], [place], [address], [facility] 11/09/2016 10:27:23 09/02/2017 text/html EP Office Visit He has a history of ablation for SVT, but persistent tachycardic palpitations which have proven to be associated with sinus tachycardia. He has been having some palpitations and fluttering. He had a severe episode this past tuesday.At about 11 am, while talking to his colleague, he suddenly had problems functioning mentally, collecting his thoughts and speaking coherently. He noted his pulse was decreased to 52. Usually it is 60-70. It was irregular, fluttering. All of that was simultaneous. He went home. He slept for 3 hours. He still felt bad, difficult to get up and moving. He went to the ER in [place]. ECG reported normal. Labs were ok. He went home, rested, Back to work Tuesday, but was still a bit lethargic.Since then he has had some irregularities but not as bad as tuesday. He has been having more palpitations for the past few months. Years ago he had an episode while working at [employer] that was similarly severe, with presyncope and severe fatigue. He has shoulder surgery 03/2017. Nik Patel MD [address] [place] [address] [address], [place], [address], [facility] 09/02/2017 12:44:08 10/25/2017 text/html EP Office VisitSVT -Previous history of ablation, not in [place], [facility] Palpitations -Persistent palpitations, tachycardia, fluttering, skipped beats -30 day monitor 09/02/17: Some bradycardia, less than 0.1% PACs/PVCs. -In view of daytime bradycardia recorded with 30 day monitor, possible reduction of long-acting Inderal 10/25/17. He has a history of ablation for SVT, but persistent tachycardic palpitations which have proven to be associated with sinus tachycardia. Most recent monitor about 3 weeks ago. He has more symptoms on more humid days. He has palpitations, dropping of his bp, palpitations, variable duration. It was common during the monitor, about half of the time. He had shoulder surgery 03/2017. Nik Patel MD [address] [place] [address] [address], [place], [address], [facility] 10/25/2017 22:26:40 06/27/2018 text/html EP Office VisitSVT -Previous history of ablation, not in [place], [facility] Palpitations -Persistent palpitations, tachycardia, fluttering, skipped beats -30 day monitor 09/02/17: Some bradycardia, less than 0.1% PACs/PVCs. -In view of daytime bradycardia recorded with 30 day monitor, possible reduction of long-acting Inderal 10/25/17. He has a history of ablation for SVT, but persistent tachycardic palpitations which have proven to be associated with sinus tachycardia. Most recent monitor about 3 weeks ago. He has been doing well. No new heart problems. Symptoms are controlled with the 80 mg dose of propranolol ER. He rarely takes the 160.He has a lot of cramping and pain in his legs that he associates with walking. He had shoulder surgery 03/2017. Nik Patel MD [address] [place] [address] [address], [place], [address], [facility] 07/04/2018 20:37:53
--- OUTSIDE RECORDS SUMMARY | 2024-07-26 07:42 | XMS_ITS | Encounter Summary ---
Author Organization [facility] Healthcare Address [address] [place] [address] Care Team Providers Care Nursery Helper Name Role Phone Zachary Kapoor MD Unavailable Erik Goncalves DO Unavailable Erik Goncalves DO Primary Care Provider [phone] Encounter Details Date Type Department Care Team (Late st Contact Info) Description 07/04/2024 Results Follow-Up [facility] Cardiology [address] [place] [address] David Hart MD [address] [place] [id number] Social History Tobacco Use Types Packs/Day Years Used Date Smoking Tobacco: Never Smokeless Tobacco: Never AUDIT-C Answer Date Recorded Q1: How often do you have a drink containing alc ohol? 2-4 times a month 11/14/2023 Q2: How many drinks containi ng alcohol do you have on a typical day when you are drinking? 1 or 2 11/14/2023 Q3: How often do you have si x or more drinks on one occasion? Never 11/14/2023 Sex and Gender Information Value Date Recorded Sex Assigned at Not on file Legal Sex Male 8:13 AM CDT Gender Identity Not on file Sexual Orientation Not on file documented as of this encounter Plan of Treatment Not on file documented as of this encounter Visit Diagnoses Not on filedocumented in this encounter Care Teams Nursery Helper Relationship Specialty Start Date End Date Erik Goncalves DO [address] [place] [address] PCP - General Family Medicine 05/31/24 Zachary Kapoor MD [address] [facility], [address] [address] Consulting Physician Pain Management 09/23/23 Erik Goncalves DO [address] [facility], [address] [address] Family Medicine 09/30/23 documented as of this encounter
--- OUTSIDE RECORDS SUMMARY | 2024-07-26 07:42 | XMS_ITS | Continuity of Care Document ---
Author [facility] Address [address] [place] [phone] Phone Care Team Providers Care Ear Nose Throat Physician Name Role Phone Raoul Terry MD Unavailable Unavailable Procedures Procedure Date ECHO EXAM OF HEART DOPPLER ECHO EXAM, HEART DOPPLER COLOR FLOW ADD-ON OFFICE CONSULTATION ELECTROCARDIOGRAM, COMPLETE Advance Directives Directive Yes / No Effective Date File Name No Information Encounters Encounter Description Practice Location Reason(s) For Visit Diagnoses Date Provider Providers Copied on Encounter [facility], [address] [place] [address], [id number], tel:[phone] [place] [facility] No Information Harrison Silveira. [address] [place] [address], [id number], . tel:[phone] OFFICE CONSULTATION [facility], [address] [place] [address], [id number], tel:[phone] [place] [facility] No Information Franklin Garza. [address] [place] [address], [id number], [place]. tel:[phone] Family History Family Member Type Diagnosis Age At Onset No Information Payers Payer name Insurance type Covered republican ID Authoriza tion(s) No Information Social History Type Description Quantity Date Captured Comments Sex Male Smoking Status No Information Chief Complaint And Reason For Visit No Information Reason For Referral Reason For Referral No Information History Of Present Illness Encounter Date Complaint History Of Prese nt Illness No Information Functional Status Date Functional Assessmen t No Information Instructions Date Instruction Additional Infor mation No Information Assessments Type Assessment Date No Information Patient Care Teams Name Effective Dates (start - stop) Status Members No Information
--- OUTSIDE RECORDS SUMMARY | 2024-07-26 07:42 | XMS_ITS | Clinical Summary ---
Author Organization [facility] Address [address] [place] [address] Care Team Providers Care Credit Administrator Name Role Phone Erik Goncalves DO Primary Care Provider [phone] Allergies Active Allergy Reactions Criticality Noted Date Comments Propranolol Dizziness 06/21/2024 Pseudoephedrine Other (see comment) 06/21/2024 Hypertension Encounters Date Type Department Care Team Description 06/21/2024 9:03 AM CDT - 06/21/2024 12:35 PM CDT Emergency [facility] [place] [address] Binu Krishna MD Fatigue; Dizziness Discharge Disposition: Home or Self Care (Routine Discharge) 06/21/2024 Travel from Last 3 Months Social History Tobacco Use Types Packs/Day Years Used Date Smoking Tobacco: Never Smokeless Tobacco: Never Tobacco Cessation:Counseling Given: Not Answered Alcohol Use Standard Drinks/Week Comments Yes 0 (1 standard drink = 0.6 oz pur e alcohol) socially Sex and Gender Information Value Date Recorded Sex Assigned at Male 06/21/2024 9:09 AM CDT Legal Sex Male 8:44 AM CDT Gender Identity Not on file Sexual Orientation Not on file Last Filed Vital Signs Vital Sign Reading Time Taken Comments Blood Pressure 119/78 06/21/2024 8:51 AM CDT Pulse 60 06/21/2024 8:51 AM CDT Temperature 36.4 C (97.6 F) 06/21/2024 8:51 AM CDT Respiratory Rate 18 06/21/2024 8:51 AM CDT Oxygen Saturation 99% 06/21/2024 8:51 AM CDT Inhaled Oxygen Concentration - - Weight 93.9 kg (207 lb) 06/21/2024 8:51 AM CDT Height 185.4 cm (6' 1 ) 06/21/2024 8:51 AM CDT Body Mass Index 27.31 06/21/2024 8:51 AM CDT Plan of Treatment Health Maintenance Due Date Last Done Comments Colorectal Cancer Screening Colonoscopy (10 Years) 1977 Annual Physical 1980 Hepatitis C 12/20/1995 DTaP, Tdap and Td Vaccines ( 1 - Tdap) 1996 Hepatitis B Vaccines (1 of 3 - 19+ 3-dose series) 1996 COVID-19 Vaccine (2023-2 5 season) 2023 Meningococcal B Vaccine Aged Out No l onger eligible based on patient's age to complete this topic Meningococcal Vaccine Aged Out No tyra mala eligible based on patient's age to complete this topic Pneumococcal Vaccine: Pediat rics (0 to 5 Years) and At-Risk Patients (6 to 49 Years) Aged Out No longer eligible b ased on patient's age to complete this topic RSV Immunizations Under 20 Months Aged Out No longer eligible based on patient's age to complete this topic Procedures Procedure Name Priority Date/Time Associated Diagnosis Comments TYPE & SCREEN STAT 06/21/2024 9:11 AM CDT COMPREHENSIVE METABOLIC PANEL STAT 06/21/2024 9:11 AM CDT CBC W/DIFF AUTOMATED STAT 06/21/2024 9:11 AM CDT from Last 3 Months Results * TYPE & SCREEN (06/21/2024 9:11 AM CDT) ABO/RH O POSITIVE 06/21/2024 10:05 AM CDT [facility] ANTIBODY SCREEN NEGATIVE 06/21/2024 10:05 AM CDT [facility] SAMPLE EXPIRATION 06/24/2024,2 359 06/21/2024 10:05 AM CDT [facility] 06/21/2024 9:11 AM CDT [facility] ORDERABLES Final Result [facility] [address] [place] [address], [place] [phone] * (ABNORMAL) COMPREHENSIVE METABOLIC PANEL (06/21/2024 9:11 AM CDT) [facility] GLUCOSE 99 70 - 99 MG/DL 06/21/2024 9:57 AM CDT [facility] BUN 18 7 - 18 MG/DL 06/21/2024 9:57 AM CDT [facility] CREATININE S/P/B 1.16 0.7 - 1.3 MG/DL 06/21/2024 9:57 AM CDT [facility] SODIUM S/P/B 137 136 - 145 MMOL/L 06/21/2024 9:57 AM CDT [facility] POTASSIUM S/P/B 3.7 3.5 - 5.1 MMOL/L 06/21/2024 9:57 AM CDT [facility] CHLORIDE S/P/B 106 97 - 115 MMOL/L 06/21/2024 9:57 AM CDT [facility] CO2 30.3 21 - 32 MMOL/L 06/21/2024 9:57 AM CDT [facility] CALCIUM S/P/B 9.5 8.5 - 10.1 MG/DL 06/21/2024 9:57 AM CDT [facility] BILIRUBIN TOTAL S/P/B 0.6 0.2 - 1.2 MG/DL 06/21/2024 9:57 AM CDT [facility] Comment: THIS ASSAY IS NOT RECOMMENDED FOR PATIENTS UNDERGOING TREATMENT WITH ELTROMBOPAG DUE TO THE POTENTIAL FOR FALSELY ELEVATED RESULTS. TOTAL PROTEIN S/P/B 7.8 6.4 - 8.2 G/DL 06/21/2024 9:57 AM CDT [facility] ALBUMIN S/P/B 3.9 3.4 - 5.0 G/DL 06/21/2024 9:57 AM CDT [facility] AST 16 15 - 37 U/L 06/21/2024 9:57 AM CDT [facility] ALT 29 16 - 60 U/L 06/21/2024 9:57 AM CDT [facility] ALKALINE PHOSPHATASE S/P/B 58 50 - 136 U/L 06/21/2024 9:57 AM T [facility] ANION GAP 0.7(L) 2 - 10 MMOL/L 06/21/2024 9:57 AM T [facility] BUN CREATININE RATIO 15.5 6 - 26 06/21/2024 9:57 AM T [facility] A/G RATIO 1.0 1.0 - 2.0 RATIO 06/21/2024 9:57 AM T [facility] GFR ESTIMATE 79(L) >90 ML/MIN/1.7 3 M2 06/21/2024 9:57 AM T [facility] Comment: NOTE: eGFR is not calculated for patients <18 years of age or gender unknown. This is an estimated GFR calculation using the new CKD EPI creatinine equation without race and so does not require a correction factor for race. This estimated GFR should not be used for calculating drug doses. 06/21/2024 9:11 AM CDT us Mely Torres HUMAN SERVICE COORDINATOR LABORATORY Final Resul t [facility] [address] [place] [address], [place] [phone] * (ABNORMAL) CBC W/DIFF AUTOMATED (06/21/2024 9:11 AM CDT) [facility] WBC 6.51 4.5 - 11.0 x10'3/uL 06/21/2024 9:49 AM CDT [facility] RBC 5.01 4.70 - 6.10 x10'6/uL 06/21/2024 9:49 AM CDT [facility] HGB 11.9(L) 14.0 - 18.0 G/DL 06/21/2024 9:49 AM CDT [facility] HCT 39.2(L) 43.0 - 54.0 % 06/21/2024 9:49 AM CDT [facility] MCV 78.2(L) 80.0 - 94.0 FL 06/21/2024 9:49 AM CDT [facility] MCH 23.8(L) 27.0 - 31.0 PG 06/21/2024 9:49 AM CDT [facility] MCHC 30.4(L) 32.0 - 36.0 G/DL 06/21/2024 9:49 AM CDT [facility] RDW 17.6(H) 11.5 - 14.5 % 06/21/2024 9:49 AM CDT [facility] PLT 336 130 - 400 x10'3/uL 06/21/2024 9:49 AM CDT [facility] MPV 9.9 9.3 - 12.2 FL 06/21/2024 9:49 AM CDT [facility] DIFFERENTIAL TYPE AUTOMATED DIFFERENTIAL 06/21/2024 9:49 AM CDT [facility] NEUTROPHILS % 56.9 % 06/21/2024 9:49 AM CDT [facility] LYMPHOCYTES % 28.9 % 06/21/2024 9:49 AM CDT [facility] MONOCYTES % 11.1 % 06/21/2024 9:49 AM CDT [facility] EOSINOPHILS 2.0 % 06/21/2024 9:49 AM CDT [facility] BASOPHILS 0.5 % 06/21/2024 9:49 AM CDT [facility] IMMATURE GRANS % 0.6 % 06/22/19 9:49 AM CDT [facility] ABS. NEUTROPHILS 3.71 1.80 - 7.70 x10'3/uL 06/21/2024 9:49 AM CDT [facility] ABS. LYMPHOCYTES 1.88 1.00 - 4.80 x10'3/uL 06/21/2024 9:49 AM CDT [facility] ABS. MONOCYTES 0.72 0.30 - 0.82 x10'3/uL 06/21/2024 9:49 AM CDT [facility] ABS. EOSINOPHILS 0.13 0.04 - 0.54 x10'3/uL 06/21/2024 9:49 AM CDT [facility] ABS. BASOPHILS 0.03 0.01 - 0.08 x10'3/uL 06/21/2024 9:49 AM CDT [facility] ABS. IMMATURE GRANULOCYTES 0.04 0.00 - 0.49 x10'3/uL 06/21/2024 9:49 AM CDT [facility] 06/21/2024 9:11 AM CDT us Mely Torres HUMAN SERVICE COORDINATOR LABORATORY Final Resul t [facility] [address] [place] [address], [place] [phone] from Last 3 Months Insurance [facility] Care Teams Credit Administrator Relationship Specialty Start Date End Date Erik Goncalves DO [address] [phone] PCP - General FAMILY PRACTICE 06/21/24
--- OUTSIDE RECORDS SUMMARY | 2024-07-26 07:42 | XMS_ITS | Referral Summary ---
Author Organization [facility] Address [address] [place] [phone] Care Team Providers Care Laborer Prestressed Concrete Name Role Phone Zachary Kapoor MD Unavailable Erik Goncalves DO Unavailable Erik Goncalves DO Primary Care Provider Encounters Date Type Department Care Team Description 07/12/2024 Results Follow-Up Cardiology Juan Hart MD 07/10/2024 3:00 PM CDT Ancillary Procedure [facility] Cardiology [address] [place] [phone] Chest pain, unspecified type 07/04/2024 Results Follow-Up [facility] Cardiology [address] [place] [phone] Juan Hart MD 07/02/2024 2:20 PM CDT - 07/02/2024 11:59 PM CDT Hospital Encounter [facility] ([facility]) [address] [place] [address] Chest pain, unspecified type Discharge Disposition: Discharge to home or self care 06/20/2024 Orders Only [facility] Cardiology [address] [place] [phone] ProviderYosvany MD 06/18/2024 2:10 PM CDT - 06/18/2024 11:59 PM CDT Hospital Encounter [facility] Pain [facility]mt [address] [address] Zachary Kapoor MD Chronic left hip pain (Primary Dx); Greater trochanteric bursitis of left hip Discharge Disposition: Discharge to home or self care 06/07/2024 2:07 PM SENIOR SALESFORCE DEVELOPER - 06/07/2024 11:59 PM SENIOR SALESFORCE DEVELOPER Hospital Encounter [facility] [address] [address] Zachary Kapoor MD Greater trochanteric bursitis of left hip (Primary Dx) Discharge Disposition: Discharge to home or self care 05/31/2024 Telephone [facility] Medical [facility] Cardiology [address] [place] [phone] Marlys Fernandez MA Medical Records Request 05/31/2024 2:00 PM SENIOR SALESFORCE DEVELOPER Office Visit [facility] Cardiology [address] [place] [phone] Juan Hart MD Chest pain, unspecified type (Primary Dx); Anemia, unspecified type; Inappropriate sinus tachycardia 05/23/2024 1:00 PM SENIOR SALESFORCE DEVELOPER - 05/23/2024 11:59 PM SENIOR SALESFORCE DEVELOPER Hospital Encounter [facility] [address] [address] Zachary Kapoor MD Arthropathy of lumbar facet joint Discharge Disposition: Discharge to home or self care 05/09/2024 1:36 PM SENIOR SALESFORCE DEVELOPER - 05/09/2024 11:59 PM SENIOR SALESFORCE DEVELOPER Hospital Encounter [facility] [address] [address] Zachary Kapoor MD Arthropathy of lumbar facet joint Discharge Disposition: Discharge to home or self care 05/07/2024 Telephone [facility] [address] [address] Sirena Alejandre RN 05/07/2024 Documentation [facility] [address] [address] Sirena Alejandre RN from Last 3 Months Allergies Active Allergy Reactions Criticality Noted Date Comments Celecoxib Muscle pain Medium 09/30/2023 Propranolol Dizziness Low 09/30/2023 Pseudoephedrine Other (See comments) Low 04/26/2024 Makes BP skyrocket Medications ivabradine (CORLANOR) 5 mg tabletIndication s:inappropriate sinus tachycardia 1 tablet (5 mg total) daily Active esomeprazole DR (NexIUM) 40 mg capsule Take 1 capsule (40 mg total) by mouth daily before breakfast Active baclofen (LIORESAL) 10 mg tablet Take 1 tablet (10 mg total) by mouth 3 (three) times a day Active tiZANidine (ZANAFLEX) 4 mg tablet Take 1 tablet (4 mg total) by mouth every 6 (six) hours as needed for muscle spasms 90 tablet 5 Active gabapentin (NEURONTIN) 100 mg capsule Take 2 capsules (200 mg total) by mouth every 8 (eight) hours 180 capsule 5 Active meloxicam (MOBIC) 15 mg tabletIndication s:Osteoarthritis Take 1 tablet (15 mg total) by mouth daily 30 tablet 2 5 09/13/19 25 Active Active Problems Problem Noted Date Diagnosed Date Chest pain 05/31/2024 Anemia 05/31/2024 Inappropriate sinus tachycardia 05/31/2024 Other bursal cyst, left hip Colitis Overview (04/26/2024): after colonoscopy Social History Tobacco Use Types Packs/Day Years Used Date Smoking Tobacco: Never Smokeless Tobacco: Never Tobacco Cessation:Counseling Given: Not Answered AUDIT-C Answer Date Recorded Q1: How often [...] Sign Reading Time Taken Comments Blood Pressure 129/76 07/02/2024 2:50 PM CDT Pulse 63 07/02/2024 2:50 PM CDT Temperature 36.1 C (96.9 F) 06/07/2024 2:23 PM SENIOR SALESFORCE DEVELOPER Respiratory Rate 18 06/18/2024 2:23 PM CDT Oxygen Saturation 100% 06/18/2024 2:51 PM CDT Inhaled Oxygen Concentration - - Weight 101.4 kg (223 lb 8 oz) 06/07/2024 2:23 PM SENIOR SALESFORCE DEVELOPER Height 185.4 cm (6' 1 ) 06/07/2024 2:23 PM SENIOR SALESFORCE DEVELOPER Body Mass Index 29.49 06/07/2024 2:23 PM SENIOR SALESFORCE DEVELOPER Plan of Treatment Not on file Procedures Procedure Name Priority Date/Time Associated Diagnosis Comments TRANSTHORACIC ECHO (TTE) COMPLETE W DOPPLER/CF WO CONTRAST Routine 07/10/2024 4:00 PM CDT Chest pain, unspecified type CT HEART MORPHOLOGY AND CORONARY ARTERIES W CONTRAST Schedule Routine, Read Routine (OP Routine) 07/02/2024 3:21 PM CDT Chest pain, unspecified type PAIN MGMT IMAGING SHOULDER, HIP, KNEE JOINT/BURSA INJ LEFT Schedule Routine, Read Routine (OP Routine) 06/18/2024 2:44 PM CDT Greater trochanteric bursitis of left hip ELECTROCARDIOGRAM REPORT Routine 05/31/2024 2:54 PM SENIOR SALESFORCE DEVELOPER Chest pain, unspecified type POCT LIPID PANEL Routine 05/31/2024 1:11 PM SENIOR SALESFORCE DEVELOPER Chest pain, unspecified type PAIN MGMT IMAGING LUMBAR/SACRAL ABLATION LEFT Schedule Routine, Read Routine (OP Routine) 05/23/2024 1:57 PM SENIOR SALESFORCE DEVELOPER Arthropathy of lumbar facet joint PAIN MGMT IMAGING LUMBAR/SACRAL ABLATION RIGHT Schedule Routine, Read Routine (OP Routine) 05/09/2024 3:13 PM SENIOR SALESFORCE DEVELOPER Arthropathy of lumbar facet joint from Last 3 Months Results * TRANSTHORACIC ECHO (TTE) COMPLETE W DOPPLER/CF WO CONTRAST (07/10/2024 4:00 PM CDT) LV EF 55-60 % CONS SCIMAGE Anatomical Region Laterality Modality Ultrasound 07/10/2024 3:41 PM CDT Narrative 07/10/2024 5:04 PM CDT [facility] Cardiology [address], [place] [address] [address] [facility] [address], [place] [address] P:[phone] P:[phone] Echocardiographic Report Patient Name: RONNY CAMARGO W : 1975 Study Date: 07/10/2024 3:41:02 PM Gender: M Tech: Location: [facility] Provider: JUAN HART Height(Cm): 185 BSA: 2.28 Weight(Kg): 101.2 Heart Rate: 62 BP: 129 / 76 Quality: Good Order Provider: JUAN HART PROCEDURES: Echocardiographic Report: Transthoracic echocardiogram with complete 2D, M-Mode, and color Doppler examination. With Strain Analysis. INDICATIONS: R07.9 Chest pain, unspecified. MEASUREMENTS: 2D/MM Value Range Doppler Value Range EF Mod BP 62 % [ 52 - 72 ] AV Mean PG 4 mmHg EF Teich MM 57 % [ 52 - 72 ] AV Peak Freddie 1.39 m/s [ 1.00 - 1.70 ] Estimated EF 55-60 % AV Peak PG 8 mmHg LVIDd 2D 4.92 cm [ 4.20 - 5.80 ] AV VTI 28.89 cm LVIDd MM 5.31 cm [ 4.20 - 5.80 ] LVOT Peak Freddie 0.80 m/s [ 0.70 - 1.10 ] LVIDs 2D 3.44 cm [ 2.50 - 4.00 ] LVOT VTI 17.12 cm LVIDs MM 3.69 cm [ 2.50 - 4.00 ] MV E Peak Freddie 0.84 m/s [ 0.60 - 1.30 ] LVPWd MM 0.84 cm [ 0.60 - 1.00 ] MV A Peak Freddie 0.61 m/s [ 1.00 - 1.20 ] IVSd 2D 0.91 cm [ 0.60 - 1.00 ] MV Decel Time 114 msec [ 104 - 258 ] IVSd MM 0.98 cm [ 0.60 - 1.00 ] PV Peak Freddie 1.28 m/s [ 0.40 - 0.80 ] LA Dimension MM 3.58 cm [ 3.00 - 4.00 ] TR Peak Freddie 2.49 m/s [ 1.00 - 2.80 ] AoR Diam MM 3.29 cm [ 3.10 - 3.70 ] TR Peak PG 25 mmHg LA Volume Index 27 cc/m2 [ 16 - 34 ] RVSP 33.00 mmHg [ 10.00 - 36.00 ] ACS MM 2.08 cm [ 1.50 - 2.60 ] Lateral E` 0.15 m/s [ 0.10 - 0.15 ] E` 0.08 m/s E/E` 6 2D/MM Value Range Doppler Value Range - FINDINGS: Interpretation Site: Exam was interpreted at [facility]. Left Ventricle: Normal left ventricular systolic function. No focal wall motion abnormalities. Normal left ventricular size. Normal left ventricular wall thickness. Normal left ventricular diastolic function. Ejection fraction is measured at 62 %. Ejection Fraction is visually estimated to be 55-60 %. Global Longitudinal Strain is -16 %. GLS is borderline. Right Ventricle: Normal right ventricular size. Normal right ventricular systolic function. Left Atrium: The left atrium is normal in size. Right Atrium: The right atrium is normal in size. Atrial Septum: Normal atrial septum. Mitral Valve: Normal appearance of the mitral valve. Mild mitral valve regurgitation. There is no hemodynamically significant mitral stenosis by Doppler. Aortic Valve: No evidence of hemodynamically significant aortic stenosis by Doppler. Aortic cusps appear mildly sclerotic. Trileaflet aortic valve. Trace aortic valve regurgitation. Tricuspid Valve: Normal appearance of the tricuspid valve. Normal right ventricular systolic pressure. Estimated peak RVSP is 33 mmHg. Mild tricuspid regurgitation. Pulmonic Valve: Normal appearance of the pulmonic valve. No pulmonic stenosis. Mild pulmonic regurgitation. Pericardium: Normal pericardium with no significant pericardial effusion. Aorta: Normal aortic root. IVC: Normal size and normal respiratory collapse consistent with normal right atrial pressure (<5 mmHg). CONCLUSIONS: Normal left ventricular systolic function. No focal wall motion abnormalities. Normal left ventricular size. Normal left ventricular wall thickness. Normal left ventricular diastolic function. Ejection fraction is measured at 62 %. Ejection Fraction is visually estimated to be 55-60 %. Global Longitudinal Strain is -16 %. GLS is borderline. Mild mitral valve regurgitation. Mild tricuspid regurgitation. Mild pulmonic regurgitation. Normal sinus rhythm. Electronically Signed By: Terry Henry MD 07/10/2024 5:04:28 PM CDT Procedure Note Terry Henry MD - 07/10/2024 [facility] Cardiology [address] [facility] [address] [id number] [address] [facility] [address] [address] P:[phone] P:[phone] Echocardiographic Report Patient Name: RONNY CAMARGO W : 1975 Study Date: 07/10/2024 3:41:02 PM Gender: M Tech: Location: [facility] Provider: JUAN HART Height(Cm): 185 BSA: 2.28 Weight(Kg): 101.2 Heart Rate: 62 BP: 129 / 76 Quality: Good Order Provider: JUAN HART PROCEDURES: Echocardiographic Report: Transthoracic echocardiogram with complete 2D, M-Mode, and color Dopplerexamination. With Strain Analysis. INDICATIONS: R07.9 Chest pain, unspecified. MEASUREMENTS: 2D/MM Value Range Doppler ValueRange EF Mod BP 62 % [ 52 - 72 ] AV Mean PG 4mmHg EF Teich MM 57 % [ 52 - 72 ] AV Peak Freddie 1.39m/s [ 1.00 - 1.70 ] Estimated EF 55-60 % AV Peak PG 8mmHg LVIDd 2D 4.92 cm [ 4.20 - 5.80 ] AV VTI 28.89cm LVIDd MM 5.31 cm [ 4.20 - 5.80 ] LVOT Peak Freddie 0.80m/s [ 0.70 - 1.10 ] LVIDs 2D 3.44 cm [ 2.50 - 4.00 ] LVOT VTI 17.12cm LVIDs MM 3.69 cm [ 2.50 - 4.00 ] MV E Peak Freddie 0.84m/s [ 0.60 - 1.30 ] LVPWd MM 0.84 cm [ 0.60 - 1.00 ] MV A Peak Freddie 0.61m/s [ 1.00 - 1.20 ] IVSd 2D 0.91 cm [ 0.60 - 1.00 ] MV Decel Time 114msec [ 104 - 258 ] IVSd MM 0.98 cm [ 0.60 - 1.00 ] PV Peak Freddie 1.28m/s [ 0.40 - 0.80 ] LA Dimension MM 3.58 cm [ 3.00 - 4.00 ] TR Peak Freddie 2.49m/s [ 1.00 - 2.80 ] AoR Diam MM 3.29 cm [ 3.10 - 3.70 ] TR Peak PG 25mmHg LA Volume Index 27 cc/m2 [ 16 - 34 ] RVSP 33.00mmHg [ 10.00 - 36.00 ] ACS MM 2.08 cm [ 1.50 - 2.60 ] Lateral E` 0.15m/s [ 0.10 - 0.15 ] E` 0.08 m/s E/E` 6 2D/MM Value Range Doppler ValueRange - FINDINGS: Interpretation Site: Exam was interpreted at [facility]. Left Ventricle: Normal left ventricular systolic function. No focal wall motionabnormalities. Normal left ventricular size. Normal left ventricular wall thickness. Normal leftventricular diastolic function. Ejection fraction is measured at 62 %. EjectionFraction is visually estimated to be 55-60 %. Global Longitudinal Strain is -16 %. GLS isborderline. Right Ventricle: Normal right ventricular size. Normal right ventricular systolicfunction. Left Atrium: The left atrium is normal in size. Right Atrium: The right atrium is normal in size. Atrial Septum: Normal atrial septum. Mitral Valve: Normal appearance of the mitral valve. Mild mitral valve regurgitation.There is no hemodynamically significant mitral stenosis by Doppler. Aortic Valve: No evidence of hemodynamically significant aortic stenosis by Doppler.Aortic cusps appear mildly sclerotic. Trileaflet aortic valve. Trace aortic valveregurgitation. Tricuspid Valve: Normal appearance of the tricuspid valve. Normal right ventricularsystolic pressure. Estimated peak RVSP is 33 mmHg. Mild tricuspid regurgitation. Pulmonic Valve: Normal appearance of the pulmonic valve. No pulmonic stenosis. Mildpulmonic regurgitation. Pericardium: Normal pericardium with no significant pericardial effusion. Aorta: Normal aortic root. IVC: Normal size and normal respiratory collapse consistent with normal rightatrial pressure (<5 mmHg). CONCLUSIONS: Normal left ventricular systolic function. No focal wall motionabnormalities. Normal left ventricular size. Normal left ventricular wall thickness. Normal leftventricular diastolic function. Ejection fraction is measured at 62 %. EjectionFraction is visually estimated to be 55-60 %. Global Longitudinal Strain is -16 %. GLS isborderline. Mild mitral valve regurgitation. Mild tricuspid regurgitation. Mild pulmonic regurgitation. Normal sinus rhythm. Electronically Signed By: Terry Henry MD 07/10/2024 5:04:28 PM CDT [facility] Maegan Hart MD CV ECHO PROCEDURES Yulisa l Result * CTA Heart and Coronary Arteries W Morphology when Performed (07/02/2024 3:21 PM CDT) Anatomical Region Laterality Modality Chest N/A Computed Tomogra phy 07/03/2024 9:22 AM CDT Impressions 07/03/2024 3:44 PM CDT 1. Calcium score of 0. 2. No significant coronary artery atherosclerosis. Dictated by: Severo Sarkar MD The radiology attending physician has personally reviewed this study, and had reviewed and/or edited this written report and agrees with it. Electronically signed by: Jose Mcguire M.D. Narrative 07/03/2024 3:44 PM CDT EXAMINATION: CORONARY CT ANGIOGRAM HISTORY: Chest pain TECHNIQUE: CT angiography of the coronary arteries was performed after the administration of 95 mL of Optiray 350. Images were also obtained precontrast for the purposes of calcium scoring. 0.8 mg of nitroglycerin were administered. The patient's heart rate and blood pressure at the time of the examination were 63 beats per minute and 129/76 mmHg. Images were transferred to a 3D workstation for additional post-processing. FINDINGS: The coronary arteries are right system dominant. No anomalous origin or course. Right coronary system: No significant atherosclerosis Left coronary system: No significant atherosclerosis. The left main and proximal left anterior descending artery are short though patent. The calculated calcium score is 0. Other findings: None Procedure Note Jose Mcguire MD - 07/03/2024 EXAMINATION: CORONARY CT ANGIOGRAM HISTORY: Chest pain TECHNIQUE: CT angiography of the coronary arteries was performed after the administration of 95 mL of Optiray 350. Images were also obtained precontrast for the purposes of calcium scoring. 0.8 mg of nitroglycerin were administered. The patient's heart rate and blood pressure at the time of the examination were 63 beats per minute and 129/76 mmHg. Images were transferred to a 3D workstation for additional post-processing. FINDINGS: The coronary arteries are right system dominant. No anomalous origin or course. Right coronary system: No significant atherosclerosis Left coronary system: No significant atherosclerosis. The left main and proximal left anterior descending artery are short though patent. The calculated calcium score is 0. Other findings: None IMPRESSION: 1. Calcium score of 0. 2. No significant coronary artery atherosclerosis. Dictated by: Severo Sarkar MD The radiology attending physician has personally reviewed this study, and had reviewed and/or edited this written report and agrees with it. Electronically signed by: Jose Mcguire M.D. [facility] Maegan Hart MD IMG CT PROCEDURES Final Result * Imaging Shoulder, Hip, Knee Joint/Bursa INJ Left () (06/18/2024 2:44 PM CDT) Narrative GEE_LALY_MHE - 06/18/2024 3:59 PM CDT The images from this study are not interpreted by Radiology. Please refer to the physician's procedure / OR operative note. Zachary Kapoor MD IMG PAIN MGMT PROCEDURES Final R esult Performing Organization Address [facility] Co de Phone Number [email or web address] * Electrocardiogram Report (05/31/2024 2:54 PM SENIOR SALESFORCE DEVELOPER) Juan Hart MD ECG ORDERABLES Final R esult * POCT lipid panel (05/31/2024 1:11 PM SENIOR SALESFORCE DEVELOPER) Cholesterol, POC 189 mg/dL Comment:GLU = 108 HDL, POC 53 mg/dL Triglycerides, POC 134 mg/dL LDL Cholesterol POC 109 mg/dL Chol/HDL Ratio, POC 2.1 Non-HDL Cholesterol, POC 136 mg/dL Cholesterol Total, POC 189 mg/dL Capillary blood 05/31/2024 1 :11 PM SENIOR SALESFORCE DEVELOPER Result [facility] Juan Hart MD POINT OF CARE TEST ORDE RABLES Final Result * Imaging Lumbar/Sacral Medial Branch RFA Left ([id number]) (05/23/2024 1:57 PM SENIOR SALESFORCE DEVELOPER) Narrative ROSAB_MHE - 05/23/2024 2:39 PM SENIOR SALESFORCE DEVELOPER The images from this study are not interpreted by Radiology. Please refer to the physician's procedure / OR operative note. Zachary Kapoor MD [facility] PAIN MGMT PROCEDURES Final R esult Performing Organization Address [facility]/ZIP Co de Phone Number [email or web address] * Imaging Lumbar/Sacral Medial Branch RFA Right ([id number]) (05/09/2024 3:13 PM SENIOR SALESFORCE DEVELOPER) Narrative TOMER_MHE - 05/09/2024 3:41 PM SENIOR SALESFORCE DEVELOPER The images from this study are not interpreted by Radiology. Please refer to the physician's procedure / OR operative note. Zachary Kapoor MD IMDeepti PAIN MGMT PROCEDURES Final R esult SON_ANTONIO_FADYB_MHE from Last [address] [facility] Care Teams Laborer Prestressed Concrete Relationship Specialty Start Date End Date Erik Goncalves DO [address] [place] [address] PCP - General Family Medicine 05/31/24 Zachary Kapoor MD [facility], [address] [address] Consulting Physician Pain Management 09/23/23 Erik Goncalves DO [address] [facility], [address] [address] Family Medicine 09/30/23
--- OUTSIDE RECORDS SUMMARY | 2024-07-26 07:42 | XMS_ITS | Encounter Summary ---
Author Name [facility] Organization [facility] [place] Address [address] [place] [address] Care Team Providers Care Crop Farm Workers Name Role Phone RYAN ROLAND Primary Care Provider Unavailabl e ANDREA BARNETT Unavailable Unavailable JAMEEL, CARMINE Unavailable Unavailable YOSVANY, MUNA Unavailable Unavailable MATTHEW ALFORD Unavailable Unavailable DINORA FERRARA Unavailable Unavailable MARIZOL YORK Unavailable Unavailable XU DICKERSON Unavailable Unavailable CASPER CALLAWAY Primary Care Provider Unavailabl e Insurance Providers: All historical and current Section Date Range: From patient's date of to the date document was created. This section includes the names of all active insurance providers for the patient. Insurance Provider Type of Coverage Plan Name Start of Policy Coverage End of Policy Coverage Group Number Member ID Insurance Provider's Telephone Number Policy Love's Name Patient's Relationship to Policy Love [facility] 2017 TRICA RE Oct 25, 2017 [facility] [id number] ANDREW CAMARGO PATIENT [facility] 2024 TRICA RE SELEC T Apr 11, 2024 SELECT [id number] ANDREW CAMARGO PATIENT Selected Encounter This section includes the information on record at [place] for the Encounter. Date/Time Encounter Type Encounter Description Reason Pro vider Source Feb 01, 2024 02:02 PM Outpatient Encounter ADMIN PAT ACTIVTIES (MASNONCT) IHE Encounter Template Text not used by [place] Advance Directives: All historical and current Section Date Range: From patient's date of to the date document was created. This section includes ALL of a patient's completed or amended [place] Advance and Rescinded Directives. The entries below indicate that a directive exists for the patient, but an actual copy is not included with this document. The data comes from all [place] facilities. Date Advance Directives Provider Source Dec 21, 2018 ADVANCE DIRECTIVE KELLY LIRA [facility] 15 Mar 11, 2017 ADVANCE DIRECTIVE LYNN PADGETT II [facility] Encounter Notes: All associated encounter notes This section contains the clinical notes associated to the Encounter. Date/Time Encounter Note(s) Provider Source Feb 01, 2024 02:02 PM ADMINISTRATIVE NOT E: LOCAL TITLE: PAULETTE-NO SHOW APPOINTMENT STANDARD TITLE: ADMINISTRATIVE NOTE DATE OF NOTE: FEB 01, 2024@14:02 ENTRY DATE: FEB 01, 2024@14:02:12 AUTHOR: DAYO SCHROEDER EXP COSIGNER: URGENCY: STATUS: COMPLETED vet no showed appointment vet has 14 days to reschedule appt /es/ DAYO SCHROEDER AMSA Signed: 02/01/2024 14:03 DAYO SCHROEDER [facility]
--- OUTSIDE RECORDS SUMMARY | 2024-07-26 07:42 | XMS_ITS | Encounter Summary ---
Author Organization [facility] Healthcare Address [address] [place] [address] Care Team Providers Care Reinforcing Bar Setter Name Role Phone Zachary Kapoor MD Unavailable Erik Goncalves DO Unavailable Erik Goncalves DO Primary Care Provider [phone] Encounter Details Date Type Department Care Team (Latest Contact Info) Description 07/12/2024 Results Follow-Up Cardiology David Hart MD [address] [address] Social History Tobacco Use Types Packs/Day [...] on filedocumented in this encounter Care Teams Reinforcing Bar Setter Relationship Specialty Start Date End Date Erik Goncalves DO [address] [place] [address] PCP - General Family Medicine 05/31/24 Zachary Kapoor MD [address] [facility], [address] [address] Consulting Physician Pain Management 09/23/23 Erik Goncalves DO [address] [facility], [address] [address] Family Medicine 09/30/23 documented as of this encounter
--- OUTSIDE RECORDS SUMMARY | 2024-07-26 07:42 | XMS_ITS | Data Portability ---
Author Organization [place] - [facility], [facility] Address [address] [facility] [address] [place] [address] Care Team Providers [employer] Name Role Phone BLADIMIR MARTINEZ Orthopedic Surgeon LETY NDIAYE Primary Care Provider Assessment Encounter Date Assessment Date Assessment LastModified by Organization Details LastModified Time 10/18/2017 10/18/2017 At this point patient may resume all activity as tolerated without restrictions. Progress with full strengthening full motion. Progressed to PT to home exercise program. Follow-up prn [email or web address] Not available 10/19/2017 10:51:10 03/23/2018 03/23/2018 Resume home exercise program. Ultrasound-guided subacromial and proximal biceps injection provided in clinic today. Provement noted within the shoulder soon after injection provided. Resume all activity. Follow-up as needed. [email or web address] Not available 03/24/2018 07:36:03 06/22/2018 06/22/2018 Medrol Dosepak, ultrasound-guided injection, topical anti-inflammatory have all been provided decreased biceps inflammation. Formal physical therapy with modalities. [email or web address] Not available 06/22/2018 18:59:15 08/01/2018 08/01/2018 MR arthrogram right shoulder has been reviewed. This demonstrates full-thickness focal tear of the rotator cuff approximately at the level junction of the supraspinatus and infraspinatus. There also appears to be a posterior superior labral tear. Previous implants from previous rotator cuff repair and labral repairs have been identified in close proximity to the above-stated tears. Previous arthroscopic images demonstrate a superior labral repair as well as a rotator cuff repair. Given the fact the patient has continued pain continued symptoms at the shoulder despite ongoing and aggressive treatment therapy with MRI confirming a re-tears of both the labrum and the cuff he has been advised that there exists the possibility of surgical and nonsurgical intervention and elected recommendation at this point would be to undergo surgical fixation with arthroscopic repair of the labrum and the rotator cuff. He is moving and may be taking a new job out of state. I recommend he follow-up with orthopedic surgeon in his new location to discuss options which may include ongoing conservative measures versus operative intervention. He understands. Follow-up myself in an as-needed basis only. [email or web address] Not available 08/01/2018 21:33:39 Plan of Treatment Reminders Order Date Submit Date Provider Last Modified By Organization Details Last Modified Time Details Appointments None recorded. Lab None recorded. Referral None recorded. Procedures None recorded. Surgeries None recorded. Imaging XR, shoulder, 2 or more view [address] [facility], [address] [place], [address], 8 18:57:55 XR, scapula [address] [facility], [address] [place], [address], 8 18:57:55 Medication Orders Medrol (Ravi) 4 mg tablets in a dose pack 2018 019 [facility] [id number], [address] [place], [address], 9 17:08:37 Voltaren 1 % topical gel 2018 019 [facility] [id number], [address] [place], [address], 9 17:08:37 Depo-Medrol 40 mg/mL suspension for injection 2018 019 [email or web address] Not available 9 17:08:37 lidocaine HCl 10 mg/mL (1 %) injection solution 2018 019 [email or web address] Not available 9 17:08:37 Depo-Medrol 40 mg/mL suspension for injection [address] [facility] [address] [facility] [id number], [address] , [place], [address], 9 09:24:44 Marcaine (PF) 0.25 % (2.5 mg/mL) injection solution 2017 018 [facility] [id number], [address] , [place], [address], 8 18:57:55 Depo-Medrol 40 mg/mL suspension for injection [address] [id number], [address] [facility], [place], [address], 9 09:24:44 lidocaine (PF) 10 mg/mL (1 %) injection solution [address] [id number], [address] [place], [address], 9 09:25:01 Marcaine 0.25 % (2.5 mg/mL) injection solution 2017 018 [facility] [id number], [address] [place], [address], 8 18:57:55 Medrol (Ravi) 4 mg tablets in a dose pack 2017 018 [email or web address] [id number], [address] [place], [address], 8 14:53:14 Patient TargetsNo targets recorded. Patient Instructions Encounter Date Encounter Id Patient Instructions Last Modified By Organization Details Last Modified Time 08/18/2017 [id number] slight set back with forced movement while on train on 08/17. dose pack as directed. cont PT. provided with throwing program to begin throwing with surgical shoulder. he does require aggressive and continued PT estimate an additional 10-12 weeks. full motion and strength, no restricitons. [email or web address] Not available 08/18/2017 18:05:00 Throwing program provided today [email or web address] Not available 08/18/2017 15:49:18 06/22/2018 [id number] biceps tendinitis: exercises lrichie Not available 06/23/2018 00:14:02 08/01/2018 [id number] rotator cuff injury: care instructions [email or web address] Not available 08/01/2018 23:29:08 Reason for Referral None Reported. Results Created Date Observation Date Name Description Value Unit Range Abnormal Flag Note LastModifiedBy Organization Detail LastModifiedTime 07/08/19 19 07/07/2018 adelaida JENNINGS , rosario ede No observ ation record ed. [facility] [address], [place], [address], 08/05/2018 07:39:34 07/08/19 19 07/07/2018 adelaida JENNINGS , rosario ede No observ ation record ed. [facility] [address], [place], [address], 08/05/2018 07:39:34 Result Notes None recorded. Problems Name Problem SNOMED Code Status Onset Date Resolution Date Notes Provider Name and Address Organization Details Recorded Time Shoulder joint pain 261838623 Active 2014 HORACE Mccabe - [facility] 7 10:24:51 Sciatica 31337736 Active 2016 HORACE Mccabe - [facility] 7 10:25:04 Degenerati on of lumbar interverte bral disc 34775691 Active 2016 HORACE Mccabe - [facility] 7 10:25:17 Low back pain 851488548 Active 2016 Amaris Del Rosario null, [facility] 7 10:25:29 Tear of meniscus of knee 891406618 Active [address] [facility] 7 10:25:47 Subacromia l impingemen t 164881892 Active 2016 Bladimir Martinez MD [address], [place], [address] , [place] [facility] 7 13:09:35 Inflammati on of rotator cuff tendon 083723365 Active 2016 Bladimir Martinez MD [address] [facility] [address], [place], [address] , [place] [facility] 7 13:09:36 Shoulder joint pain 215432890 Active 2014 Not Available [facility] 7 01:59:33 History of arthroscop ic procedure on shoulder 004737220 Active [address] [facility] 7 17:04:03 Biceps tendinitis 016775201 Active [address] [facility] 8 13:35:12 Bursitis of right shoulder 5887490951819 07 Active [address] [facility] 8 13:38:48 Problem Notes None recorded. Procedures Surgical History Date Name Laterality Status Provider Name and Address Organization Details Recorded Time 06/23/19 19 Lbr.us.biceps.inj completed Bladimir Martinez MD [address] [facility] [address], [place], [address], [place] [facility] 06/23/2018 00:13:38 03/23/20 18 lbr.us.completesho ulder completed Bladimir Martinez MD [address], [place], [address], [place] [facility] 03/24/2018 08:06:39 03/23/20 18 lbr.us.CATHIE completed Bladimir Martinez MD [address], [place], [address], [place] - [facility], 03/24/2018 08:07:05 03/23/20 18 lbr.us.shoulderinj ection completed Bladimir Martinez MD [address], [place], [address], [place] - [facility], 03/24/2018 08:08:11 06/11/19 18 lbr.inj.subacromia l completed Bladimir Martinez MD [address], [place], [address], [place] [facility], 08/22/2017 12:24:20 06/11/19 18 lbr.inj.shoulder completed Bladimir Martinez MD [address], [place], [address], [place] [facility], 06/11/2017 22:22:00 06/11/19 18 ULTRASOUND DIAGNOSTIC (COMPLETE) completed Bladimir Martinez MD [address], [place], [address], [place] [facility], 08/22/2017 12:24:40 03/30/20 17 SHOULDER ARTHROSCOPY WITH SLAP LESION REPAIR (SURG) completed Sujata Chowdhury [facility], 04/05/2017 09:18:57 10/16/19 17 DME - [facility] - L3670,N completed Bladimir Martinez MD [address], [place], [address], [place] [facility], 10/15/2016 09:55:22 09/10/19 17 lbr.inj.subacromia l completed Sujata Chowdhury [facility], 09/09/2016 11:01:06 04/11/19 03 Cholecystectomy completed Lisha Storey [facility], 09/08/2016 17:47:10 Knee Arthroscopy completed Lisha Storey [facility], 09/08/2016 17:47:33 Unlisted px cardiac surgery completed Lisha Storey [facility], 09/09/2016 10:23:44 Imaging Results Imaging Date Name Status LastModified by Organiz ation Details LastModified Time 07/07/2018 MR, arthrogram, shoulder completed lrichie [facility] [address] [facility] [address], [place], [address], 08/05/2018 07:39:34 07/07/2018 MR, arthrogram, shoulder completed lrichie [facility] [address] [facility] [address], [place], [address], 08/05/2018 07:39:34 Procedure Notes None recorded. Medical Equipment None Reported. Allergies Allergen ID Allergen Name Allergen Category Reaction Reaction Severity Criticality Documentation Date Start Date Code Code System Note Provider Name and Address Organization Details Recorded Time 692125 codeine phosphate medicatio n Not available Not available Not available 07/15/20162012 2672 RxNorm Not Available Not Available Not Available 046291 codeine phosphate medicatio n Not available Not available Not available 10/16/20162012 2672 RxNorm Not Available Not Available Not Available Medications Name Sig Start Date Stop Date Status Note LastModified by Organization Details LastModified Time lidocaine HCl 10 mg/mL (1 %) injection solution Take 1 mL by injection route. 2018 active Not Available Not Available Not Avai lable propranolol ER 160 mg capsule,24 hr,extended release active Not Available Not Available Not Available Depo-Medrol 40 mg/mL suspension for injection Inject 2mL of Depo-Medr ol 2018 active Not Available Not Available Not Avai lable triamcinolo ne acetonide 0.5 % topical cream 05/12 completed Not Available Not Available Not Available cetirizine 10 mg tablet active Not Available Not Available Not Available azithromyci n 250 mg tablet 06/22 completed Not Available Not Available Not Available ibuprofen 800 mg tablet Take 1 tablet 3 times a day by oral route with meals. active Not Available Not Available No t Available hydrocodone 5 mg-acetamin ophen 325 mg tablet 10/18 completed Not Available Not Available Not Available ondansetron HCl 4 mg tablet Take 1 tablet every 6 hours by oral route as needed. 10/18 completed Not Available Not Available Not Available prednisone 20 mg tablet 06/22 completed Not Available Not Available Not Available Nexium 40 mg capsule,del ayed release 10/07 completed Not Available Not Available Not Available omeprazole 40 mg capsule,del ayed release active Not Available Not Available Not Available tramadol 50 mg tablet as needed active Not Available Not Available Not Available meloxicam 7.5 mg tablet active Not Available Not Available Not Available oxycodone-a cetaminophe n 5 mg-325 mg tablet Take 1 tablet every 4 hours by oral route as needed. 10/18 completed Not Available Not Available Not Available metoclopram jose 5 mg tablet 10/18 completed Not Available Not Available Not Available meclizine 25 mg tablet 10/07 completed Not Available Not Available Not Available hydrocodone 7.5 mg-acetamin ophen 325 mg tablet active Not Available Not Available No t Available clotrimazol e-betametha sone 1 %-0.05 % topical cream 10/18 completed Not Available Not Available Not Available propranolol ER 80 mg capsule,24 hr,extended release active Not Available Not Available Not Available promethazin e 25 mg tablet 10/07 completed Not Available Not Available Not Available gabapentin 300 mg capsule active Not Available Not Available Not Available bumetanide 1 mg tablet 10/07 completed Not Available Not Available Not Available Transderm-S copy messenger 1 mg over 3 days transdermal patch active Not Available Not Available Not Available epinephrine 0.3 mg/0.3 mL injection, auto-inject or active Not Available Not Available Not Available levofloxaci n 750 mg tablet 04/14 completed Not Available Not Available Not Available methylpredn isolone 4 mg tablets in a dose pack Take 1 dose pk by oral route. active Not Available Not Available No t Available albuterol sulfate HFA 90 mcg/actuati on aerosol inhaler active Not Available Not Available Not Available Marcaine 0.25 % (2.5 mg/mL) injection solution Inject 1mL of Marcaine 2017 active Not Available Not Available Not Avai lable ondansetron 4 mg disintegrat ing tablet 05/12 completed Not Available Not Available Not Available cefdinir 300 mg capsule 04/14 completed Not Available Not Available Not Available fluticasone propionate 50 mcg/actuati on nasal spray,suspe nsion active Not Available Not Available Not Available nortriptyli ne 50 mg capsule 10/07 completed Not Available Not Available Not Available amoxicillin 875 mg-potassiu m clavulanate 125 mg tablet active Not Available Not Available Not Available Marcaine (PF) 0.25 % (2.5 mg/mL) injection solution Take 2 mL by injection route. 2017 active Not Available Not Available Not Avai lable Lyrica 75 mg capsule active Not Available Not Available N ot Available lidocaine (PF) 10 mg/mL (1 %) injection solution Take 1 mL by injection route. 06/22 completed Not Available Not Available Not Available diclofenac 1 % topical gel APPLY 2 GRAM TO THE AFFECTED AREA(S) BY TOPICAL ROUTE 4 TIMES PER DAY active Not Available Not Available No t Available Vitals Date Recorded Body height Provider Name an d Address Organization Details Last Updated DateTime 08/18/2017 185.42 cm Melinda Tabor [facility], 08/18/2017 14:59:03 Date Recorded Body height Body mass index (BMI) Body weight Heart rate Systolic blood pressure Diastolic blood pressure Provider Name and Address Organization Details Last Updated DateTime 8 185.42 cm 29 kg/m2 97061.3 2 g 54 /min 109 mm[Hg] 59 mm[Hg] Lisha Storey [facility], 8 14:52:40 Date Recorded Body height Provider Name an d Address Organization Details Last Updated DateTime 03/23/2018 185.42 cm Melinda Tabor [facility], 03/23/2018 12:20:46 Date Recorded Body height Body mass index (BMI) Body weight Provider Name and Address Organization Details Last Updated DateTime 06/22/2018 185.42 cm 29 kg/m2 83281.32 g Swati Hess [facility], 06/22/2018 09:24:24 Date Recorded Body height Body mass index (BMI) Body weight Provider Name and Address Organization Details Last Updated DateTime 08/01/2018 185.42 cm 29 kg/m2 58259.32 g Swati Hess [facility], 08/01/2018 15:38:17 Social History Question Answer Notes LastModified by Organizat ion Details LastModified Time Tobacco Smoking Status Never Smoker Lisha Raleigh byrd [place] - [facility], 09/08/2016 17:47:48 What Is Your Level Of Alcohol Consumption? Occasional [email or web address] Information not available 09/08/2016 What Was The Date Of Your Most Recent Tobacco Screening? 08/01/2018 Information n ot available 11/01/2018 Sex: Unknown Functional Status None recorded. Mental Status None recorded. Family History Relationship Description Onset Age of this Age Resolved Age Notes LastModified by Organization Details LastModified Time Maternal Aunt Family history of malignant neoplasm [email or web address] Not available 2016 10:22:44 Maternal Uncle Family history of malignant neoplasm [email or web address] Not available 2016 10:22:47 Paternal Grandfather Family history of malignant neoplasm [email or web address] Not available 2016 10:22:50 Father Diabetes mellitus [email or web address] Not available 2016 10:21:56 Sister Scoliosis of cervical spine Not available 2016 10:26:42 Medical History Condition Response Pancreatitis N HEME - Anemia N Gout N Hyperthyroidism N Rheumatoid arthritis N Irritable bowel syndrome N Osteoarthrosis N HEENT - Wears corrective lenses N Depression N COPD N Pneumonia N Peptic ulcer disease N History of head and neck tumor N NEURO - Cerebral palsy N Skin infection N Active aids N Mitral valve prolapse N Renal failure N HIV positive N GI - GERD N Joint injury N Hypercholesterolemia N Hypoparathyroidism N MS - Fracture N Fibromyalgia N Cerebrovascular accident N Neuromuscular disease N PSYCHE - Claustrophobia N Poliomyelitis / post polio N ENDOCRINE - Obesity N Hearing impairment N Dysvascular amputation LE N Other diagnosis N Anxiety disorder N Deformity N CHEST - Sleep apnea N Crohn's disease N Pulmonary embolism N Chronic venous stasis disease N Psychosis N Coagulopathy N Asthma N Blood clotting disorder N Cardiac valvular disease N Are you under pain mgmt treatment N Fragility fracture N Vertigo N Hepatitis N Neuropathy N Coronary artery disease N Pressure sore N Diabetes Type II (NIDDM) N Skin ulceration N Bipolar disorder N Glaucoma N Legally blind N Hypothyroidism N Sinusitis / sinus infection N Pacemaker N Peripheral vascular disease N Cystic fibrosis N Cholecystitis N Sickle cell N VASCULAR - Deep venous thrombosis N Osteomyelitis N SKIN - Rash N INFECTIOUS - Current active infection N Heart murmur N Previous myocadial infarction N Itp / ttp N Lupus Arthritis N Congestive heart failure N Skin bruising N Diabetes Type I (IDDM) N HEART - Arrhythmia Y Chemically anticoagulated N Dental caries / gingivitis N Fracture non-union N Dysvascular gangrene N - Cystitis N Renal dialysis N Dementia N Diverticulitis N Ulcerative colitis N Seizure disorder N MISC - Cancer N Organ transplant N Hypertension N Osteoporosis N Past Encounters Encounter ID Performer Location Encounter Start Date Encounter Closed Date Diagnosis/Indication Diagnosis SNOMED-CT Code Diagnosis ICD10 Code Diagnosis Note [id number] Bladimir Martinez MD [address] [address] 09/09/2016 10:07:53 09/09/2016 11:38:23 Shoulder joint pain 187714370 M25.251 [id number] Bladimir Martinez MD [address] [address] 10/07/2016 09:29:18 10/07/2016 11:08:47 Shoulder joint pain 067385598 M25.511 Inflammati on of rotator cuff tendon 972756794 M65.811 Subacromia l impingement 579537459 M75.41 [id number] Bladimir Martinez MD [address] [address] 10/15/2016 09:02:55 10/15/2016 10:44:44 Injury of superior glenoid labrum of shoulder joint 283185873 S43.431A Partial th ickness rotator cuff tear 653501768 M75.111 Arthritis of acromioclavicular joint 565652562 M13.819 Subacromia l impingement 076133048 M75.[id number] [address] 04/07/2017 15:26:51 04/07/2017 17:02:42 History of arthroscopic procedure on shoulder 802407342 Z98.890 M75.101 S43.431A [id number] Bladimir Martinez MD [address] [address] 04/14/2017 10:18:34 04/14/2017 11:18:20 Postprocedural state finding 725838940 Z98.890 Glenoid labrum tear 2023 25141 S43.431D Partial th ickness rotator cuff tear 196976138 M75.832 [id number] Bladimir Martinez MD [address] [address] 05/12/2017 09:56:09 05/12/2017 11:37:49 Postprocedural state finding 962295549 Z98.890 Glenoid labrum tear 2023 23343 S43.431D Partial th ickness rotator cuff tear 940351376 M75.624 [id number] Bladimir Martinez MD [address] [address] 06/10/2017 11:15:51 06/10/2017 13:18:05 Glenoid labrum tear 577064905 S43.431D Partial th ickness rotator cuff tear 039186275 M75.912 [id number] Bladimir Martinez MD [address] [address] 08/18/2017 14:48:53 08/18/2017 17:39:41 Subacromial impingement 494875857 M75.41 Inflammati on of rotator cuff tendon 908890894 M65.812 Acromiocla vicular joint pain 478622954 M25.512 Biceps tendinitis 127170 007 M75.22 [id number] Bladimir Martinez MD [address] [address] 10/18/2017 14:43:46 10/18/2017 15:42:40 Subacromial impingement 947050059 M75.41 Inflammati on of rotator cuff tendon 882333280 M65.812 Pain of le ft shoulder joint 9059083846 9203225 M25.512 Biceps tendinitis 174156 007 M75.22 [id number] Bladimir Martinez MD [address] [address] 03/23/2018 12:07:16 03/23/2018 13:37:54 Shoulder joint pain 509358934 M25.511 Biceps tendinitis 083656 007 M75.21 Bursitis o f right shoulder 4491097648 95067 M75.51 [id number] Bladimir Martinez MD [facility] [address] [facility],[address] [place] [address] 06/22/2018 09:02:30 06/22/2018 10:37:42 Bursitis of right shoulder 9930913194 09327 M75.51 Biceps tendinitis 578181 007 M75.21 [id number] Bladimir Martinez MD [facility] [address] [facility],[address] [place] [address] 08/01/2018 15:10:46 08/01/2018 16:20:48 Injury of superior glenoid labrum of shoulder joint 002878345 S43.431A Full thick ness rotator cuff tear 976699157 M75.121 Health Concerns Section Related Observation LastModified by Organization Detai ls LastModified Time None Recorded Concern Status LastModified by Organization Details LastModified Time None Recorded Advance Directives Directive None Recorded Payers Encounter Date Sequence Insurance Name Policy Number Policy Love Covered Member ID Love Member ID Guarantor Name 08/18/2017 1 [place] - DOS PRIOR TO 2024 - [employer] - PRIME () [facility] [id number] [facility] 10/18/2017 1 [place] - DOS PRIOR TO 2024 - [employer] - PRIME () [facility] [id number] [facility] 03/23/2018 1 [place] - DOS PRIOR TO 2024 - [employer] - [place] ( - PPO) [facility] [id number] [facility] 06/22/2018 1 [place] - DOS PRIOR TO 2024 - [employer] - [place] ( - PPO) [facility] [id number] [facility] 08/01/2018 1 [place] - DOS PRIOR TO 2024 - [employer] - [place] ( - PPO) Ronny Henderson [id number] Ronny Henderson Notes Date Note Type Note Provider Name and Address Organization Details Recorded Time 08/18/2017 text/html Patient reports today for a post op visit after having a Right RCR on 03/30/17. He had injections on 06/10/17 which he states helped some. He does state that he has tightnesss still in the shoulder but he feels that it is progressing. He states that he did have an incident on the train yesterday where he was holding on and they stopped suddenly and he zoila his shoulder and he has been sore since. He does report that he has tenderness to palpitation and that he has a constant pain of 3/10. prior to this incident his pain was less. although he is progressing he still has pain and limitations voerhead. Bladimir Martinez MD [address] [place] [address] [address], [place], [address], [facility] - [facility], 08/18/2017 18:05:08 10/18/2017 text/html Patient reports today for a post op visit after having a Right RCR on 03/30/17. Patient reports his shoulder is feeling much better. He reports no pain. He took a dose pack. He is going to PT and doing a throwing program. He is able to do 11 push-ups now, but wants to get to 40. He is taking prednisone and tramadol for his back. He had injections on 06/10/17 which he [place] [address] [place] [address], [place], [phone], [facility], 10/19/2017 15:18:18 03/23/2018 text/html Patient reports today for a recheck of right shoulder pain. He states that he is still having issues with the shoulder. He states that his pain is in the bicep area and it is a constant pain. He has increased pain with folding of his arms and prolonged use. Pain at its worst is 8/10. no recent or repeat trauma. Bladimir Martinez MD [address] [place] [address], [place], [phone], [facility], 03/24/2018 08:10:55 06/22/2018 text/html Patient is a 42 yo male who presents to the office with (R) shoulder pain. Patient states it feels the same as it did before. He is interested in getting injection today. no repeat trauma. pain ic aching, constant, worse with use and better with rest. worst when crossing arm in front of him. Bladimir Martinez MD [address] [place] [address] [address], [place], [phone], [facility] - [facility], 06/23/2018 00:14:34 08/01/2018 text/html Patient is a 42y o male who presents to the office for MRI results. Patient has no changes to symptoms since last visit. contues to have right shoulder pain worse with use and better with rest. Bladimir Martinez MD [address] [place] [address] [address], [place], [address], [facility], 08/01/2018 23:29:23
--- OUTSIDE RECORDS SUMMARY | 2024-07-26 07:42 | XMS_ITS | Clinical Summary ---
Author Organization [facility] [place] Address [address] [place] [address] Care Team Providers Care Handkerchief Cutter Name Role Phone aZchary Kapoor MD Unavailable Erik Goncalves DO Unavailable Erik Goncalves DO Primary Care Provider [phone] Allergies Active Allergy Reactions Criticality Noted Date [...] left hip Colitis Overview (04/26/2024): after colonoscopy Encounters Date Type Department Care Team Description 07/12/2024 Results Follow-Up Cardiology Juan Hart MD 07/10/2024 3:00 PM CDT Ancillary Procedure [facility] Medical [facility] Cardiology [address] [place] [address] Chest pain, unspecified type 07/04/2024 Results Follow-Up [facility] Cardiology [address] [place] [address] [address] [place] [phone] Juan Hart MD 07/02/2024 2:20 PM CDT - 07/02/2024 11:59 PM CDT Hospital Encounter [facility] ([facility] [address] [place] [address] Chest pain, unspecified type Discharge Disposition: Discharge to home or self care 06/20/2024 Orders Only [facility] Cardiology [address] [facility] [address] [place] [phone] ProviderYosvany MD 06/18/2024 2:10 PM CDT - 06/18/2024 11:59 PM CDT Hospital Encounter [facility] [address] [address] Zachary Kapoor MD Chronic left hip pain (Primary Dx); Greater trochanteric bursitis of left hip Discharge Disposition: Discharge to home or self care 06/07/2024 2:07 PM [employer] CONSULTANT - 06/07/2024 11:59 PM [employer] CONSULTANT Hospital Encounter [facility] [address] [address] Zachary Kapoor MD Greater trochanteric bursitis of left hip (Primary Dx) Discharge Disposition: Discharge to home or self care 05/31/2024 2:00 PM [employer] CONSULTANT Office Visit [facility] Cardiology [address] [facility] [address] [place] [phone] Juan Hart MD Chest pain, unspecified type (Primary Dx); Anemia, unspecified type; Inappropriate sinus tachycardia 05/31/2024 Telephone [facility] Cardiology [address] [place] [address] Marlys Fernandez MA Medical Records Request 05/23/2024 1:00 PM [employer] CONSULTANT - 05/23/2024 11:59 PM [employer] CONSULTANT Hospital Encounter [facility] [address] [address] Zachary Kapoor MD Arthropathy of lumbar facet joint Discharge Disposition: Discharge to home or self care 05/09/2024 1:36 PM [employer] CONSULTANT - 05/09/2024 11:59 PM [employer]AC[employer] CONSULTANT Hospital Encounter [facility] [address] [address] Zachary Kapoor MD Arthropathy of lumbar facet joint Discharge Disposition: Discharge to home or self care 05/07/2024 Telephone [facility] [address] [address] Sirena Alejandre, JORGE LUIS 05/07/2024 Documentation [facility] [address] [address] Sirena Alejandre, JORGE LUIS from Last 3 Months Surgical History Surgery Date Site/Laterality Comments CHOLECYSTECTOMY ABLATION SHOULDER ARTHROPLASTY Right Medical History Medical History Date Comments Plantar lipomatosis, facial dysmorphism, and developmental delay syndrome Other bursal cyst, left hip Colitis after colonoscop y 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 NM (myocardial infarction) (HCC) Anemia Family History Medical History Relation Name Comments Diabetes Father No Known Problems Mother Relation Name Status Comments Father Alive Mother Alive Social History Tobacco Use Types Packs/Day Years [...] on file Sexual Orientation Not on file Obstetrics History Last Filed Vital Signs Vital Sign Reading Time Taken Comments Blood Pressure 129/76 07/02/2024 2:50 PM CDT Pulse 63 07/02/2024 2:50 PM CDT Temperature 36.1 C (96.9 F) 06/07/2024 2:23 PM [employer] CONSULTANT Respiratory Rate 18 06/18/2024 2:23 PM CDT Oxygen Saturation 100% 06/18/2024 2:51 PM CDT Inhaled Oxygen Concentration - - Weight 101.4 kg (223 lb 8 oz) 06/07/2024 2:23 PM [employer] CONSULTANT Height 185.4 cm (6' 1 ) 06/07/2024 2:23 PM [employer] CONSULTANT Body Mass Index 29.49 06/07/2024 2:23 PM [employer]LE [employer] CONSULTANT Plan of Treatment Health Maintenance Due Date Last Done Comments Colon Cancer Screening-Colonoscopy 1975 Depression Screening 1975 Hepatitis C Screening 1975 Regular Well Visit/Exam 18-64 12/20/1995 Covid-19 Vaccine ( season) 2023 12/05/2020, 11/14/2020 Influenza Vaccine (Season Ended) 2024 01/22/2023, 02/13/2022, 12/24/2020, Additional history exists DTaP/Tdap/Td Vaccine (3 - Td or Tdap) 03/18/2028 03/18/2018, 09/20/2007, 04/11/2004, Additional history exists Hepatitis B Screening Completed 02/18/2004 , 09/03/2003, 07/22/2003 HPV Vaccines Aged Out No longer eligi ble based on patient's age to complete this topic Pneumococcal vaccine <65 Aged Out No longer eligible based on [...] hip ELECTROCARDIOGRAM REPORT Routine 05/31/2024 2:54 PM [employer] CONSULTANT Chest pain, unspecified type POCT LIPID PANEL Routine 05/31/2024 1:11 PM [employer] CONSULTANT Chest pain, unspecified type PAIN MGMT IMAGING LUMBAR/SACRAL ABLATION LEFT Schedule Routine, Read Routine (OP Routine) 05/23/2024 1:57 PM [employer] CONSULTANT Arthropathy of lumbar facet joint PAIN MGMT IMAGING LUMBAR/SACRAL ABLATION RIGHT Schedule Routine, Read Routine (OP Routine) 05/09/2024 3:13 PM [employer] CONSULTANT Arthropathy of lumbar facet joint from Last 3 Months Results * TRANSTHORACIC ECHO (TTE) COMPLETE W DOPPLER/CF WO CONTRAST (07/10/2024 4:00 PM CDT) LV EF 55-60 % CONS SCIMAGE Anatomical Region Laterality Modality Ultrasound 07/10/2024 3:41 PM CDT Narrative 07/10/2024 5:04 PM CDT [facility] [address] [facility] [address], [place] [address] [address] [facility] [address], [place] [address] P:[phone] P:[phone] Echocardiographic Report Patient Name: RONNY CAMARGO W : 1975 Study Date: 07/10/2024 3:41:02 PM Gender: M Tech: Location: MD Ref Provider: JUAN HART Height(Cm): 185 BSA: 2.28 [...] FINDINGS: Interpretation Site: Exam was interpreted at [facility]. Left Ventricle: Normal left ventricular systolic function. [...] Procedure Note Terry Henry MD - 07/10/2024 [facility] [address], [place] [address] [address] [facility] [address], [place] [address] P:[phone] P:[phone] Echocardiographic Report Patient Name: RONNY CAMARGO W : 1975 Study Date: 07/10/2024 3:41:02 PM Gender: M Tech: Location: [facility] Provider: JUAN HART Height(Cm): 185 BSA: [...] FINDINGS: Interpretation Site: Exam was interpreted at [facility]. Left Ventricle: Normal left ventricular systolic function. [...] Terry Henry MD 07/10/2024 5:04:28 PM CDT us Ripa Maegan Hart MD CV ECHO PROCEDURES Yulisa [...] it. Electronically signed by: Jose Mcguire M.D. Juan Hart MD [facility] PROCEDURES Final Result * Imaging Shoulder, Hip, Knee Joint/Bursa INJ Left () (06/18/2024 2:44 PM CDT) Narrative SON_ANTONIO_LALY_M[facility] - 06/18/2024 3:59 PM CDT The images from this study are not interpreted by Radiology. Please refer to the physician's procedure / OR operative note. Zachary Kapoor MD [facility] PROCEDURES Final R esult RAD_CL[facility]IO_M[facility]_MHE * Electrocardiogram Report (05/31/2024 2:54 PM [employer] CONSULTANT) Juan Hart MD ECG ORDERABLES Final R esult * POCT lipid panel (05/31/2024 1:11 PM [employer] CONSULTANT) Cholesterol, POC 189 mg/dL Comment:GLU = 108 HDL, POC 53 mg/dL Triglycerides, POC 134 mg/dL LDL Cholesterol POC 109 mg/dL Chol/HDL Ratio, POC 2.1 Non-HDL Cholesterol, POC 136 mg/dL Cholesterol Total, POC 189 mg/dL Capillary blood 05/31/2024 1 :11 PM [employer] CONSULTANT Juan Hart MD POINT OF CARE TEST BENJAMIN MONTAÑO Final Result * Imaging Lumbar/Sacral Medial Branch RFA Left ([id number]) (05/23/2024 1:57 PM [employer]ACLE EN[employer] CONSULTANT) Narrative [facility] - 05/23/2024 2:39 PM [employer]ACLE EN[employer] CONSULTANT The images from this study are not interpreted by Radiology. Please refer to the physician's procedure / OR operative note. Zachary Kapoor MD [facility] PROCEDURES Final R esult Performing Organization Address [facility] de Phone Number RAD_CL[facility]IO_[facility]_MHE * Imaging Lumbar/Sacral Medial Branch RFA Right ([id number]) (05/09/2024 3:13 PM [employer]ACLE EN[employer] CONSULTANT) Narrative RAD_CLARKARMEN_MHB_MHE - 05/09/2024 3:41 PM [employer]ACLE ENDE[employer] CONSULTANT The images from this study are not interpreted by Radiology. Please refer to the physician's procedure / OR operative note. Zachary Kapoor MD [facility] PROCEDURES Final R esult Performing Organization Address [facility] de Phone Number RAD_[facility] from Last 3 Months Insurance [facility] Care Teams Handkerchief Cutter Relationship Specialty Start Date End Date Erik Goncalves DO [address] [place] [address] PCP - General Family Medicine 05/31/24 Zachary Kapoor MD [facility], [address] [address] Consulting Physician Pain Management 09/23/23 Erik Goncalves DO [facility], [address] [address] Family Medicine 09/30/23
--- OUTSIDE RECORDS SUMMARY | 2024-07-26 07:43 | XMS_ITS | Continuity of Care Document ---
Author Name [facility] Organization [facility] Care Team Providers Care Global Category Manager Name Role Phone [facility] Unavailable Unavailable Problems Combined list of problems from 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 It does not include entries that were removed or entered in error. Problem Status Onset Date Problem Type Date of Resolution Comments Source Spinal stenosis, lumbar region without neurogenic claudication Active 025 Diagnosis [facility] Segmental and somatic dysfunction of lumbar region Active 025 Diagnosis [facility] Segmental and somatic dysfunction of cervical region Active 025 Diagnosis [facility] Segmental and somatic dysfunction of thoracic region Active 025 Diagnosis [facility] Segmental and somatic dysfunction of thoracic region Active 025 Diagnosis [facility] Pain in left hip Active 025 Diagnosis [facility] Spinal stenosis, lumbar region without neurogenic claudication Active 025 Diagnosis [facility] Radiculopathy, lumbar region Active 025 Diagnosis [facility] Segmental and somatic dysfunction of lumbar region Active 025 Diagnosis [facility] Segmental and somatic dysfunction of cervical region Active 025 Diagnosis [facility] MARVIN - Iron deficiency anemia Active Condition 0055C[facility] Low back pain Active Condition 0055C-37 [facility] Radiculopathy, lumbar region Active Condition [facility] Pain in left hip Active Condition [facility] Sinus tachycardia Active Condition [facility] Spinal stenosis, lumbar region without neurogenic claudication Active Condition [facility] Posterior vitreous detachment Active Condition Unknown Organization [facility]-Atrial Fibrillation (SCT [id number]) Active Condition Jan 26, 2019 Entered By: AD SHI Comment: Treated with ablation in 2006. [facility] Allergic rhinitis due to grass pollen (SNOMED CT 86144243) Active Condition [facility] Anemia (SCT [id number]) Active Condition Aug 07, 2019 Entered By: AD SHI Comment: Iron deficiency of UE per [facility] in 2017 which mentioned a 2009 colonoscopy and that he donates a lot of blood. [facility] Chronic low back pain Active Condition JENNIFER Shipley [facility] Chronic pain syndrome Active Condition [facility] 15 Chronic post-traumatic stress disorder (SNOMED CT 312268352) Active Condition [facility] Colitis Active Condition Dec 20 Entered By: AD SHI Comment: hospitalized with unknown type when 32 yo [facility] Dermatitis * (ICD-9-CM 692.9) Active Condition [facility] Dry eyes Active Condition [facility] 15 Exposure to potentially hazardous substance Active Condition [facility] Family history of colorectal cancer Active Condition Dec 20 Entered By: AD SHI Comment: in another [place] with mets to lungs. [facility] Family history of leukemia Active Condition Dec 20, 2018 Entered By: AD SHI Comment: in [place] [facility] 15 Family history of malignant neoplasm of ovary Active Condition Dec 20, 2018 Entered By: AD SHI Comment: [place] [facility] 15 FH: Cardiovascular disease Active Condition Dec 20, 2018 Entered By: AD SHI Comment: PGF had CABG in his 60s [facility] Gastro-esophageal reflux disease with esophagitis (SNOMED CT 937468910) Active Condition [facility] GERD - Gastro-Esophageal Reflux Disease (SCT [id number]) Active Condition Aug 07, 2019 Entered By: AD SHI Comment: Negative EGD with dilation on 11/20/2015 [address] per Dr Cristiano José of [place], [place].Aug 07, 2019 Entered By: AD SHI Comment: Hx of dilation in 2013.Mar 12, 2020 Entered By: AD SHI Comment: Negative EGD on 11/19/2019. [facility] H/O: surgery Active Condition Dec 20, 2018 Entered By: AD SHI Comment: Cholecystectomy for cholecystitis when 27 yoSep 2018 Entered By: AD SHI Comment: R knee meniscus surgery when 35 & 39 yo.Dec 20, 2018 Entered By: AD SHI Comment: L plantar fasciitis surgery when 34 yoSep 2018 Entered By: AD SHI Comment: R shoulder labral tear & rotator cuff tear surgery when 41 yoSep 2018 Entered By: AD SHI Comment: 04/24/18 left L3-L4, L4-L5, L5-S1 facet nerve radiofrequency ablation [facility] 15 History of colonoscopy Active Condition Mar 12, 2020 Entered By: AD SHI Comment: Negative on 11/19/2019 and repeat it in 10 years. [facility] 15 Immunization status Active Condition Dec 20, 2018 Entered By: AD SHI Comment: Chickenpox as a child [facility] 15 Inappropriate sinus tachycardia Active Condition [facility] 15 Internal hemorrhoids without mention of complication (ICD-9-CM 455.0) Active Condition [facility] Knee pain Active Condition JENNIFER Maldonado [facility] Lumbar spondylosis Active Condition [facility] 15 Migraine with aura Active Condition [facility] Neuropathy Active Condition Feb 20 Entered By: AD SHI Comment: Idiopathic per Luis Ruiz DPM on 06/30/2018 & Rx with Lyrica 75 mg po BID. (No lab). [facility] 15 Pain of left ankle joint (SNOMED CT [id number]) Active Condition [facility] Sleep related bruxism Active Condition [facility] Supraventricular tachycardia Active Condition JENNIFER RODRIGUEZ [facility] Arrhythmia * (ICD-9-CM 427.9) Inactive Condition 12/08/2017 [facility] Chronic Low Back Pain (ICD-9-CM 724.2) Inactive Condition 12/08/2017 [facility] Health Maintenance (ICD-9-CM V65.9) Inactive Condition 12/08/2017 [facility] Insect bite, nonvenomous, of other, multiple, and unspecified sites, without men Inactive Condition 12/08/2017 [facility] Other Specified Counseling (ICD-9-CM V65.49) Inactive Condition 12/08/2017 [place] [facility] Rectal Bleeding (ICD-9-CM 569.3) Inactive Condition 12/08/2017 [facility] Toxic gastroenteritis and colitis (ICD-9-CM 558.2) Inactive Condition 12/08/2017 [facility] Diagnosis: ICD-10-CM M54.51 Vertebrogenic low back pain Active Diagnosis [facility] Diagnosis: ICD-10-CM M47.896 Other spondylosis, lumbar region Active Diagnosis [facility] Diagnosis: ICD-10-CM R07.9 Chest pain, unspecified Active Diagnosis [facility] Diagnosis: ICD-10-CM M25.512 Pain in left shoulder Active Diagnosis [facility] Diagnosis: ICD-10-CM R32 Unspecified urinary incontinence Active Diagnosis [facility] Diagnosis: ICD-10-CM Z00.00 Encntr for general adult medical exam w/o abnormal findings Active Diagnosis [facility] Medications Combined list of outpatient medications from Department of Defense and [facility] Affairs facilities.Medications provided include 1) outpatient medications from the last 15 months, and 2) patient-reported medications. Medication Details Route Status Patient Instructions Prescription Expires Prescription Number Last Dispense Date Ordering Provider Order Date Order Qty Source ASCORBIC ACID 500MG TAB TAKE ONE TABLET BY MOUTH EVERY DAY ORAL ACTIVE BENIGNO DIAZ 2007 [facility] CARISOPRODO L 350MG TAB TAKE ONE TABLET BY MOUTH EVERY DAY NEEDED ORAL ACTIVE LLOYD DENNIS 2014 [facility]ER RODRIGUEZ [facility] CETIRIZINE HCL 10MG TAB TAKE ONE TABLET BY MOUTH EVERY DAY ORAL ACTIVE CARIDAD BENSON [address] [facility] ESOMEPRAZOL E MAGNESIUM 40MG CAP,EC TAKE ONE CAPSULE BY MOUTH AT BEDTIME TO LOWER STOMACH ACID. TAKE AT LEAST 1 HOUR BEFORE FOOD (N/F APPROVED ) ORAL 03/08/2024 [id number] CINTIA [facility] E 2022 90 [facility] ESOMEPRAZOL E MAGNESIUM 40MG CAP,EC TAKE 1 CAPSULE BY MOUTH EVERY DAY ORAL ACTIVE MARCELINO,EAR L 2012 [facility] IBUPROFEN 800MG TAB TAKE ONE TABLET BY MOUTH EVERY DAY NEEDED ORAL ACTIVE MARCELINO,EAR L 2012 [facility] NORTRIPTYLI NE HCL 25MG CAP TAKE 2 CAPSULES BY MOUTH EVERY DAY ORAL ACTIVE MARCELINO,EAR L 2014 [facility] OMEGA-3-ACI D ETHYL ESTERS 1000MG CAP,ORAL TAKE 2 CAPSULES BY MOUTH EVERY DAY ORAL ACTIVE BENIGNO DIAZ [address] [facility] PROPRANOLOL HCL 160MG CAP,SA TAKE 1 CAPSULE BY MOUTH EVERY DAY ORAL ACTIVE MARCELINO,EAR L 2014 [facility] TRAMADOL HCL 50MG TAB TAKE ONE TABLET BY MOUTH EVERY DAY NEEDED ORAL ACTIVE LLOYD DENNIS 2014 JENNIFER RODRIGUEZ [facility] Allergies, Adverse Reactions, Alerts Combined list of allergies from 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 It does not include entries that were removed or entered in error. Substance Category Reaction Severity Reaction type Status Date Reported Comments Source PROPRANOLOL Propensity to adverse reactions to drug (finding) Lethargy, Fatigue active 1 [facility] propranolol Drug allergy Swelling (finding) Moderate Active [facility] pseudoephedri ne Drug allergy HIGH BP Moderate Active 2 [facility] SEASONAL ALLERGIES Propensity to adverse reaction (finding) Sneezing, Allergic rhinitis, Watery eye active 3 [facility] Immunizations Combined list of available immunizations from the 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 Immunization Series Date Given Administered By Site Reaction Lot Number CVX Code Drug Student Worker Status Comments Source INFLUENZA, UNSPECIFIED FORMULATION 2022 88 complet ed HISTORICA L INFORMATI ON - FROM PATIENT'S RECALL, [facility] OFFIC influenza, injectable, quadrivalent- pf 2021 [id number] sanofi pasteur complet ed influenza , injectabl e, quadrival ent-pf 02/13/22 Given Ambulat ory Pharmac y INFLUENZA, INJECTABLE, QUADRIVALENT, PRESERVATIVE FREE 2020 150 complet ed [facility] COVID Vaccine Pfizer 2020 [id number] PFIZER complet ed COVID Vaccine Pfizer 12/05/20 Given Ambulat ory Pharmac y COVID-19 (PFIZER), MRNA, LNP-S, PF, 30 MCG/0.3 ML DOSE 2 2020 208 complet ed PFR; [id number]; 1 [facility] COVID-19 (PFIZER), MRNA, LNP-S, PF, 30 MCG/0.3 ML DOSE 1 2020 208 complet ed PFR; [id number]; 1 [facility] hepatitis A adult vaccine 2020 [id number] sanofi pasteur complet ed hepatitis A adult vaccine 05/13/20 Given Ambulat ory Pharmac y influenza, injectable, quadrivalent 2018 [id number] 158 [employer] complet ed influenza , injectabl e, quadrival ent 02/11/19 Given Ambulat ory Pharmac y tetanus-dipht h toxoids (Td) adult/adol 2017 [id number] 09 sanofi pasteur complet ed tetanus-d iphth toxoids (Td) adult/ado l 03/18/18 Given Ambulat ory Pharmac y influenza, injectable, quadrivalent- pf 2017 [id number] 150 [employer] complet ed influenza , injectabl e, quadrival ent-pf 01/27/18 Given Ambulat ory Pharmac y INFLUENZA, SEASONAL, INJECTABLE 2017 141 complet ed [facility] OFFIC typhoid Vi capsular polysaccharid e vac 2016 [id number] 101 sanofi pasteur complet ed typhoid Vi capsular polysacch aride vac 03/19/17 Given Ambulat ory Pharmac y typhoid Vi capsular polysaccharid e vac 2016 [id number] 101 sanofi pasteur complet ed typhoid Vi capsular polysacch aride vac 03/19/17 Given Ambulat ory Pharmac y INFLUENZA, SEASONAL, INJECTABLE 2016 141 complet ed [facility] Influenza, inj, MDCK, quadrivalent- pf 2016 [id number] 171 [employer] complet ed Influenza , inj, MDCK, quadrival ent-pf 01/29/17 Given Ambulat ory Pharmac y Influenza, inj, MDCK, quadrivalent- pf [id number] 171 [employer] complet ed Influenza , inj, MDCK, quadrival ent-pf 01/29/17 Given Ambulat ory Pharmac y influenza, seasonal, injectable-pf 2015 [id number] 140 [employer] complet ed influenza , seasonal, injectabl e-pf 03/13/16 Given Ambulat ory Pharmac y influenza, seasonal, injectable-pf 2015 [id number] 140 [employer] complet ed influenza , seasonal, injectabl e-pf 03/13/16 Given Ambulat ory Pharmac y influenza, seasonal, injectable 2015 141 complet ed influenza , seasonal, injectabl e 02/02/16 Given Ambulat ory Pharmac y measles/mumps /rubella virus vaccine 2014 [id number] [employer] complet ed measles/m umps/rube lla virus vaccine 03/23/15 Given Ambulat ory Pharmac y measles/mumps /rubella virus vaccine 2014 [id number] 03 [employer] complet ed measles/m umps/rube lla virus vaccine 03/23/15 Given Ambulat ory Pharmac y influenza, seasonal, injectable-pf 2014 [id number] 140 C[employer] complet ed influenza , seasonal, injectabl e-pf 01/25/15 Given Ambulat ory Pharmac y influenza, seasonal, injectable-pf 2014 [id number] 140 [employer] complet ed influenza , seasonal, injectabl e-pf 01/25/15 Given Ambulat ory Pharmac y varicella virus vaccine 2013 UNK 21 Unknown complet ed varicella virus vaccine 04/02/14 Given Ambulat ory Pharmac y varicella virus vaccine 2013 21 Unknown complet ed varicella virus vaccine 04/02/14 Given Ambulat ory Pharmac y INFLUENZA, SEASONAL, INJECTABLE, PRESERVATIVE FREE [address] [facility] Influenza, injectable, MDCK-pf 2013 [id number] 153 [employer] complet ed Influenza , injectabl e, MDCK-pf 01/06/14 Given Ambulat ory Pharmac y Influenza, injectable, MDCK-pf 2013 [id number] 153 [employer] ls complet ed Influenza , injectabl e, MDCK-pf 01/06/14 Given Ambulat ory Pharmac y influenza, injectable, quadrivalent- pf 2013 [id number] 150 [employer] ls complet ed influenza , injectabl e, quadrival ent-pf 04/21/13 Given Ambulat ory Pharmac y influenza, injectable, quadrivalent- pf 2013 [id number] 150 [employer] ls complet ed influenza , injectabl e, quadrival ent-pf 04/21/13 Given Ambulat ory Pharmac y INFLUENZA, SEASONAL, INJECTABLE, PRESERVATIVE FREE [address] [facility] influenza, seasonal, injectable-pf 2011 [id number] 140 [employer] complet ed influenza , seasonal, injectabl e-pf 12/26/11 Given Ambulat ory Pharmac y influenza, seasonal, injectable-pf 2011 [id number] 140 [employer] complet ed influenza , seasonal, injectabl e-pf 12/26/11 Given Ambulat ory Pharmac y influenza, seasonal, injectable-pf 2010 [id number] 140 [employer] complet ed influenza , seasonal, injectabl e-pf 01/24/11 Given Ambulat ory Pharmac y influenza, seasonal, injectable-pf 2010 [id number] 140 [employer] complet ed influenza , seasonal, injectabl e-pf 01/24/11 Given Ambulat ory Pharmac y influenza, seasonal, injectable-pf 2010 140 sanofi pasteur complet ed influenza , seasonal, injectabl e-pf 01/06/11 Given Ambulat ory Pharmac y influenza, seasonal, injectable 2009 141 complet ed influenza , seasonal, injectabl e 12/25/09 Given Ambulat ory Pharmac y influenza virus vaccine,split 2007 [id number] 15 [employer] complet ed influenza virus vaccine,s plit 01/27/08 Given Ambulat ory Pharmac y influenza virus vaccine,split 2007 [id number] 15 [employer] complet ed influenza virus vaccine,s plit 01/27/08 Given Ambulat ory Pharmac y tetanus, diphtheria, acellular pertu is 2007 [id number] 115 Gl[employer] ne complet ed tetanus, diphtheri a, acellular pertussis 09/20/07 Given Ambulat ory Pharmac y tuberculin purified protein derivative 2007 [id number] 96 [facility] complet ed tuberculi n purified protein derivativ e 09/20/07 Given Ambulat ory Pharmac y tetanus, diphtheria, acellular pertu is 2007 [id number] 115 GlaxoSmithK[employer] ne complet ed tetanus, diphtheri a, acellular pertussis 09/20/07 Given Ambulat ory Pharmac y TDAP 2007 115 complet ed [facility] influenza virus vaccine,split 2006 [id number] 15 [employer] complet ed influenza virus vaccine,s plit 02/12/07 Given Ambulat ory Pharmac y influenza virus vaccine,split 2006 [id number] 15 [employer] complet ed influenza virus vaccine,s plit 02/12/07 Given Ambulat ory Pharmac y FLU,3 YRS (HISTORICAL) 2006 88 complet ed [facility] hepatitis A adult vaccine 2005 [id number] 52 Unknown complet ed hepatitis A adult vaccine 10/20/05 Given Ambulat ory Pharmac y hepatitis A adult vaccine 2005 [id number] 52 Unknown complet ed hepatitis A adult vaccine 10/20/05 Given Ambulat ory Pharmac y influenza virus vaccine,split 2004 [id number] 15 [employer] complet ed influenza virus vaccine,s plit 02/28/05 Given Ambulat ory Pharmac y TD(ADULT) UNSPECIFIED FORMULATION 2004 139 complet ed [facility] influenza virus vaccine,split 2003 UNK 15 Unknown complet ed influenza virus vaccine,s plit 02/18/04 Given Ambulat ory Pharmac y hepatitis A-hepatitis B vaccine 2003 UNK 104 Unknown complet ed hepatitis A-hepatit is B vaccine 02/18/04 Given Ambulat ory Pharmac y hepatitis A-hepatitis B vaccine 2003 104 Unknown complet ed hepatitis A-hepatit is B vaccine 02/18/04 Given Ambulat ory Pharmac y vaccinia (smallpox) vaccine 2003 75 Unknown complet ed vaccinia (smallpox ) vaccine 02/18/04 Given Ambulat ory Pharmac y hepatitis A-hepatitis B vaccine 2003 104 Unknown complet ed hepatitis A-hepatit is B vaccine 02/18/04 Given Ambulat ory Pharmac y influenza virus vaccine,split 2003 15 Unknown complet ed influenza virus vaccine,s plit 02/18/04 Given Ambulat ory Pharmac y vaccinia (smallpox) vaccine 2003 UNK 75 Unknown complet ed vaccinia (smallpox ) vaccine 02/18/04 Given Ambulat ory Pharmac y anthrax vaccine 2003 UNK 24 Unknown complet ed anthrax vaccine 12/30/03 Given Ambulat ory Pharmac y hepatitis A adult vaccine 2003 52 Unknown complet ed hepatitis A adult vaccine 12/30/03 Given Ambulat ory Pharmac y anthrax vaccine 2003 24 Unknown complet ed anthrax vaccine 12/30/03 Given Ambulat ory Pharmac y typhoid Vi capsular polysaccharid e vac 2003 UNK 101 Unknown complet ed typhoid Vi capsular polysacch aride vac 12/30/03 Given Ambulat ory Pharmac y hepatitis A adult vaccine 2003 UNK 52 Unknown complet ed hepatitis A adult vaccine 12/30/03 Given Ambulat ory Pharmac y hepatitis B adult vaccine 2003 [id number] 43 [employer] complet ed hepatitis B adult vaccine 09/03/03 Given Ambulat ory Pharmac y hepatitis B adult vaccine 2003 [id number] 43 [employer] complet ed hepatitis B adult vaccine 09/03/03 Given Ambulat ory Pharmac y meningococcal polysaccharid e (MPSV4) 2003 UNK 32 Unknown complet ed meningoco ccal polysacch aride (MPSV4) 07/22/03 Given Ambulat ory Pharmac y influenza virus vaccine,split 2003 UNK 15 Unknown complet ed influenza virus vaccine,s plit 07/22/03 Given Ambulat ory Pharmac y hepatitis B adult vaccine 2003 UNK 43 Unknown complet ed hepatitis B adult vaccine 07/22/03 Given Ambulat ory Pharmac y poliovirus vaccine, inactivated 2003 10 Unknown complet ed polioviru s vaccine, inactivat ed 07/22/03 Given Ambulat ory Pharmac y influenza virus vaccine,split 2003 15 Unknown complet ed influenza virus vaccine,s plit 07/22/03 Given Ambulat ory Pharmac y measles/mumps /rubella virus vaccine 2003 03 Unknown complet ed measles/m umps/rube lla virus vaccine 07/22/03 Given Ambulat ory Pharmac y meningococcal polysaccharid e (MPSV4) 2003 32 Unknown complet ed meningoco ccal polysacch aride (MPSV4) 07/22/03 Given Ambulat ory Pharmac y poliovirus vaccine, inactivated 2003 UNK 10 Unknown complet ed polioviru s vaccine, inactivat ed 07/22/03 Given Ambulat ory Pharmac y measles/mumps /rubella virus vaccine 2003 UNK 03 Unknown complet ed measles/m umps/rube lla virus vaccine 07/22/03 Given Ambulat ory Pharmac y tetanus-dipht h toxoids (Td) adult/adol 2003 UNK 09 Unknown complet ed tetanus-d iphth toxoids (Td) adult/ado l 07/22/03 Given Ambulat ory Pharmac y tuberculin purified protein derivative 2003 96 Unknown complet ed tuberculi n purified protein derivativ e 07/19/03 Given Ambulat ory Pharmac y Results Combined list of recent chemistry, hematology and other laboratory results from Department of Defense and Veterans Affairs, ranging from 15 months to all on record, depending upon the facility. Order Name Results Value Reference Range Date Interpretation Specimen Comments Source Hematolog y [place] Absolute 0.3 x10^3/mc L 0.2 - 0.8103 07/09 N 0055A-[address] [facility] Hematolog y Lymph Absolute 1.3 x10^3/mc L 1.2 - 4.0103 07/09 N 0055A-[address] [facility] Hematolog y Lymphocyte % Auto 31.3 % 20.0 - 40.0 07/09 N 0055A-[address] [facility] Hematolog y Basophil % Auto 0.5 % 0.0 - 2.5 07/09 N 0055A-[address] [facility] Hematolog y Baso Absolute 0.0 x10^3/mc L 0.0 - 0.1103 07/09 N 0055A[facility] Hematolog y Eosinophil % Auto 1 % 0 - 5 07/09 N 0055A-3 [facility] SRINATH Sinha Hematolog y Eos Absolute 0.1 x10^3/mc L 0.0 - 0.7103 07/09 N 0055A-3 [facility] SRINATH Sinha Hematolog y Neutrophil % Auto 59.3 % 46.0 - 77.0 07/09 N 0055A-3 [facility] SRINATH Sinha Hematolog y Neutro Absolute 2.5 x10^3/mc L 2.0 - 7.0103 07/09 N 0055A-3 [facility] SRINATH Sinha Hematolog y Monocyte % Auto 8 % 1 - 12 07/09 N 0055A-[address] [place] [address] [facility] Chemistry eGFR CKD EPI 94 mL/min/1 .73_m2 07/09 Interpretiv e Data: Estimated Glomerular Filtration Rate (eGFR) calculated using the 2020 Chronic Kidney Disease-Epi demiology (CKD-EPI) Collaborati on creatinine equation; units of measure are mL/min/1.73 m2. Results are only valid for adults (>=18 years) whose serum creatinine is in steady state. eGFR calculation s are not valid for patients with acute kidney injury and for patients on dialysis. Creatinine- based estimates of kidney function may also be inaccurate in patients with reduced creatinine generation due to decreased muscle mass (e.g., malnutritio n, severe hypoalbumin emia, sarcopenia, chronic neuromuscul ar disease, amputations , severe heart failure or liver disease) and in patients with increased creatinine generation due to increased muscle mass (e.g., muscle builders, anabolic steroids) or increased dietary intake. CKD is diagnosed based on abnormaliti es of kidney structure or function, present for >3 months, with implication s for health and disease. CKD is classified and staged based on cause, eGFR and albuminuria (quantified as urine albumin to creatinine ratio). An eGFR >60 mL/min/1.73 m2 in the absence of increased urine albumin excretion or structural abnormaliti es does not CKD. eGFR provides only an estimate of measured GFR within +/- 30% for most patients. As mentioned, nutritional status and muscle mass, among many factors, may lead to inaccuracy in the estimate. Consider ordering the creatinine- cystatin C panel if better accuracy is needed for clinical decision-radha remy. eGFR (mL/min/1.7 3 m2) CKD stage Interpretat ion Normal 60-89 Mild decrease 45-59 Mild to moderate decrease 30-44 Moderate to severe decrease 15-29 Severe decrease <15 Kidney failure 0055A-3 [facility] Hematolog y MCH 24 pg 28 - 33 07/09 L 0055A-3 [facility] Hematolog y MCV 78 fL 80 - 97 07/09 L 0055A-3 [facility] [place] Hematolog y MCHC 30.9 g/dL 33.0 - 36.5 07/09 L 0055A-3 [facility] Hematolog y Differentia l? Auto (07/09/24 1:44 PM) 07/09 N 0055A-3 [facility] [facility] Hemoglobin 11.4 g/dL 13.0 - 16.3 07/09 L 0055A-3 [facility]- [facility] Hematocrit 37 % 40 - 49 07/09 L 0055A-3 [facility]- [facility] RDW 17.0 % 11.0 - 14.9 07/09 H 0055A-[address] [place], [place] [address]GRP- [facility] RBC 4.7 x10^6/mc L 4.0 - 5.6106 07/09 N 0055A-3 [facility]- [facility] WBC 4.3 x10^3/mc L 4.0 - 11.0103 07/09 N 0055A-3 [facility]- [facility] Platelets 256.0 x10^3/mc L 150.0 - 450.0103 07/09 N 0055A-3 [facility]- [facility] MPV 10.1 fL 7.4 - 10.4 07/09 N 0055A-[address] [place] [address]- [facility] Bilirubin Total 0.5 mg/dL 0.2 - 1.2 07/09 N 0055A-3 [facility] BUN/Creat Ratio 12 mg/dL 12 - 20 07/09 N 0055A-[address] [place] [address]- [facility] Chemistry Protein Total 7.6 g/dL 6.4 - 8.3 07/09 N 0055A-[address] [place] [address] Chemistry BUN 12 mg/dL 8 - 26 07/09 N 0055A-[address] [place] [address] Chemistry Calcium 9.6 mg/dL 8.4 - 10.2 07/09 N 0055A-[address] [place] [address] Chemistry Chloride 106 mmol/L 98 - 107 07/09 N 0055A-[address] [place] [address] Chemistry Creatinine Level 1.00 mg/dL 0.72 - 1.25 07/09 N 0055A-[address] [place] [address] Chemistry CO2 27 mmol/L 22 - 29 07/09 N 0055A-[address] [place] [address] Chemistry Potassium Lvl 3.8 mmol/L 3.5 - 5.1 07/09 N 0055A-[address] [place] [address] Chemistry Glucose Lvl 91 mg/dL 74 - 99 07/09 N 0055A-[address] [place] [address] Chemistry Sodium 141 mmol/L 136 - 145 07/09 N 0055A-[address] [place] [address] Chemistry Alk Phos 57 U/L 40 - 150 07/09 N 0055A-[address] [place] [address] Chemistry AGAP 8.00 0.00 - 15.00 07/09 N 0055A-[address] [place] [address] Chemistry Albumin 4.10 g/dL 3.50 - 5.20 07/09 N 0055A-[address] [place] [address] Chemistry ALT 21 U/L 5 - 55 07/09 N 0055A-[address] [place] [address] Chemistry AST 21 U/L 5 - 34 07/09 N 0055A-[address] [place] [address] Chemistry Iron 25 ug/dL 59 - 158 07/09 L Interpretiv e Data: METHODOLOGY : Testing performed by colorimetri c assay. 5600A-U [facility] Chemistry UIBC, 286.0 ug/dL 112.0 - 347.0 07/09 N [facility] Chemistry Transferrin Sat 8 % 14 - 50 07/09 L [facility] Chemistry TIBC 311 ug/dL 250 - 400 07/09 N [facility] Chemistry Ferritin Lvl 8.27 ng/mL 30.00 - 400.00 07/09 L Interpretiv e Data: METHODOLOGY : Testing performed by electrochem iluminescen t immunoassay (ECLIA). [facility] Infectiou s Disease HIV-1/O/2 Non-Reac tive 25 (05/02/24 1:38 PM) 05/02 N Interpretiv e Data: INTERPRETAT ION: This method is a screening procedure for the detection of HIV p24 Antigen and Antibodies to HIV-1, including Group O, and/or HIV-2. NON-REACTIV E: HIV-1 antigen and HIV-1 / HIV-2 antibodies were not detected. No laboratory evidence of HIV infection. A negative test result does not exclude the possibility of exposure to or infection with HIV. HIV antibodies and/or p24 antigen may be undetectabl e in some stages of the infection and in some clinical conditions. If acute HIV infection is suspected, consider submitting another specimen to a reference laboratory for HIV-1 RNA. SCREEN REACTIVE - CONFIRMATIO N TO FOLLOW: Possible presence of HIV-1antibo dies, HIV-2 antibodies and/or HIV-1 p24 antigen. Specimen will reflex to the confirmatio n testing that fulfills the Center for Disease Control and Prevention' s HIV diagnostic algorithm. Refer to [facility] Lab Guide for additional information : [email or web address] x Testing performed by Electrochem iluminescen ce. [facility] Miscellan eous Sendouts Atypical ANCA.LC <1:20 Neg:<1:20 03/12 Result Comment: The atypical pANCA pattern has been observed in a significant percentage of patients with ulcerative colitis, primary sclerosing cholangitis and autoimmune hepatitis. Performed At: [address] [id number] Cuate Echevarria MD Ph:[phone] Performed At: 02 [facility] [address] [place], [place] [id number] Irma Jimenez PhD Ph:[phone] 0055A-[address] [place] [address] Miscellan eous Sendouts Anti-PR3 Antibodies LC <0.2 unit(s) 0.0 - 0.9 03/12-[address] [place] [address] Miscellan eous Sendouts Perinuclear Ab.LC <1:20 Neg:<1:20 03/12 Result Comment: The presence of positive fluorescenc e exhibiting P-ANCA or C-ANCA patterns alone is not specific for the diagnosis of Ivette's Granulomato sis (WG) or microscopic polyangiiti s. Decisions about treatment should not be based solely on ANCA IFA results. The [facility] ANCA Group Consensus recommends follow up testing of positive sera with both KY- 3 and MPO-ANCA enzyme immunoassay s. As many as 5% serum samples are positive only by EIA. Ref. AM J Clin Pathol 1999;111:50 7-513. -[address] [place] [address] Miscellan eous Sendouts Cytoplasm+N eutrophil Ab.LC <1:20 Neg:<1:20 03/12-[address] [place] [address] Miscellan eous Sendouts Anti-MPO Antibodies LC <0.2 unit(s) 0.0 - 0.9 03/12-[address] [place] [address] Immunolog y/Serolog y Saccharomyc es Cerevisiae IgG.LC 72.2 unit(s) 0.0 - 24.9 03/12 H Result Comment: Negative <20.0 Equivocal 20.1 - 24.9 Positive >or= 25.0 -[address] [place] [address] Immunolog y/Serolog y Saccharomyc es Cerevisiae IgA.LC 143.5 unit(s) 0.0 - 24.9 03/12 H Result Comment: Negative <20.0 Equivocal 20.1 - 24.9 Positive >or= 25.0 IgA and IgG antibody testing for S. cerevisiae is useful adjunct testing for differentia ting Crohn's disease and ulcerative colitis. Close to 80% of Crohn's disease patients are positive for either IgA or IgG. In ulcerative colitis, less than 15% are positive for IgG and less than 2% are positive for IgA. Fewer than 5% are positive for either IgG or IgA antibody, and no healthy controls had antibody for both. Performed At: [address] [id number] Cuate Echevarria MD Ph:[phone] 0055A-3 [facility]- [facility] Retic Hemoglobin Equivalent 26.6 pg 28.2 - 36.6 02/15 L 0055A-3 [facility]- [facility] Retic, Abs 0.067 x10^6/mc L 0.026 - 0.802470 02/15 N [facility]55A[facility] RBC 5.0 x10^6/mc L 4.0 - 5.6106 02/15 N 0055A-3 [facility]- [facility] Reticulocyt e % 1.33 % 0.50 - 1.81 02/15 N 0055A-3 [facility]- [facility] Differentia l? Auto (02/16/24 10:20 AM) 02/15 N 0055A-3 [facility]- [facility] MCHC 31.0 g/dL 33.0 - 36.5 02/15 L 0055A-3 [facility]- [facility] MCV 75 fL 80 - 97 02/15 L 0055A-3 [facility] Hemoglobin 11.7 g/dL 13.0 - 16.3 02/15 L 0055A-3 [facility]- [facility] MCH 23 pg 28 - 33 02/15 L 0055A-3 [facility]- [facility] Hematocrit 38 % 40 - 49 02/15 L 0055A[facility]3 [facility] WBC 4.6 x10^3/mc L 4.0 - 11.0103 02/15 N 0055A-3 [facility]- [facility] RDW 17.5 % 11.0 - 14.9 02/15 H 0055A[facility]3 [facility] MPV 9.9 fL 7.4 - 10.4 02/15 N 0055A-3 [facility]- [facility] Platelets 330.0 x10^3/mc L 150.0 - 450.0103 02/15 N 0055A-3 [facility]- [facility] Chemistry Calcium 9.8 mg/dL 8.4 - 10.2 02/15 N 0055A[facility] Chemistry BUN 13 mg/dL 8 - 26 02/15 N 0055A-[address] [place] [address] Chemistry BUN/Creat Ratio 13 mg/dL 12 - 20 02/15 N 0055A-[address] [place] [address] Chemistry Chloride 106 mmol/L 98 - 107 02/15 N 0055A-[address] [place] [address] Chemistry CO2 28 mmol/L 22 - 29 02/15 N 0055A-[address] [place] [address] Chemistry Albumin 4.00 g/dL 3.50 - 5.20 02/15 N 0055A-[address] [place] [address] Chemistry Creatinine Level 1.00 mg/dL 0.72 - 1.25 02/15 N 005-[address] [place] [address] Chemistry Alk Phos 58 U/L 40 - 150 02/15 N 005-[address] [place] [address] Chemistry Glucose Lvl 102 mg/dL 74 - 99 02/15 H 5A-[address] [place] [address] Chemistry ALT 13 U/L 5 - 55 02/15 N 0055A-[address] [place] [address] Chemistry Potassium Lvl 4.4 mmol/L 3.5 - 5.1 02/15 N 0055A-[address] [place] [address] Chemistry AST 20 U/L 5 - 34 02/15 N 0055A-[address] [place] [address] Chemistry Sodium 142 mmol/L 136 - 145 02/15 N 0055A-[address] [place] [address] Chemistry Bilirubin Total 0.6 mg/dL 0.2 - 1.2 02/15 N 0055A-[address] [place] [address] Chemistry Protein Total 7.4 g/dL 6.4 - 8.3 02/15 N 0055A-[address] [place] [address] Chemistry AGAP 8.00 0.00 - 15.00 02/15 N 0055A-[address] [place] [address] Chemistry Iron 20 ug/dL 59 - 158 02/15 L Interpretiv e Data: METHODOLOGY : Testing performed by colorimetri c assay. [facility] Chemistry TIBC 205 ug/dL 250 - 400 02/15 L [facility] Chemistry Transferrin Sat 10 % 14 - 50 02/15 L 5600A[facility] Chemistry UIBC, 185.0 ug/dL 112.0 - 347.0 02/15 N [facility] Chemistry Ferritin Lvl 8.61 ng/mL 30.00 - 400.00 02/15 L Interpretiv e Data: METHODOLOGY : Testing performed by electrochem iluminescen t immunoassay (ECLIA). [facility] Chemistry GGT 41 U/L 12 - 64 02/15 N 0055A-[address] [facility] Chemistry eGFR CKD EPI 94 mL/min/1 .73_m2 02/15 Interpretiv e Data: Estimated Glomerular Filtration Rate (eGFR) calculated using the 2020 Chronic Kidney Disease-Epi demiology (CKD-EPI) Collaborati on creatinine equation; units of measure are mL/min/1.73 m2. Results are only valid for adults (>=18 years) whose serum creatinine is in steady state. eGFR calculation s are not valid for patients with acute kidney injury and for patients on dialysis. Creatinine- based estimates of kidney function may also be inaccurate in patients with reduced creatinine generation due to decreased muscle mass (e.g., malnutritio n, severe hypoalbumin emia, sarcopenia, chronic neuromuscul ar disease, amputations , severe heart failure or liver disease) and in patients with increased creatinine generation due to increased muscle mass (e.g., muscle builders, anabolic steroids) or increased dietary intake. CKD is diagnosed based on abnormaliti es of kidney structure or function, present for >3 months, with implication s for health and disease. CKD is classified and staged based on cause, eGFR and albuminuria (quantified as urine albumin to creatinine ratio). An eGFR >60 mL/min/1.73 m2 in the absence of increased urine albumin excretion or structural abnormaliti es does not CKD. eGFR provides only an estimate of measured GFR within +/- 30% for most patients. As mentioned, nutritional status and muscle mass, among many factors, may lead to inaccuracy in the estimate. Consider ordering the creatinine- cystatin C panel if better accuracy is needed for clinical decision-radha remy. eGFR (mL/min/1.7 3 m2) CKD stage Interpretat ion Normal 60-89 Mild decrease 45-59 Mild to moderate decrease 30-44 Moderate to severe decrease 15-29 Severe decrease <15 Kidney failure 0055A-3 [facility] Basophil % Auto 0.6 % 0.0 - 2.5 02/15 N -3 [facility] Eos Absolute 0.1 x10^3/mc L 0.0 - 0.7103 02/15 N - [address] [place] [address]- [facility] Baso Absolute 0.0 x10^3/mc L 0.0 - 0.1103 02/15 N -[address] [place] [address] Hematolog y [place] Absolute 0.4 x10^3/mc L 0.2 - 0.8103 02/15 N - [address] [place] [address]- [facility] Monocyte % Auto 10 % 1 - 12 02/15 N - [address] [place] [address] Hematolog y Lymph Absolute 1.6 x10^3/mc L 1.2 - 4.0103 02/15 N - [address] [place] [address] Hematolog y Eosinophil % Auto 2 % 0 - 5 02/15 N - [address] [place] [address]- [facility] Lymphocyte % Auto 34.6 % 20.0 - 40.0 02/15 N - [address] [place] [address]- [facility] Neutro Absolute 2.5 x10^3/mc L 2.0 - 7.0103 02/[address] [place] [address] Hematolog y Neutrophil % Auto 53.4 % 46.0 - 77.0 02/[address] [place] [address] Hematolog y Hered Hemochromat osis DNA.LC COMMENT 01/11 Result Comment: Results: c.845G>A (p.Dtr578Hd r) - Detected, homozygous c.187C>G (p.Rfr30Iyc ) - Not Detected c.193A>T (p.Qnh38Hxd ) - Not Detected 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 Biochemical testing such as transferrin - iron saturation and/or serum ferritin studies is recommended to confirm a diagnosis. See Additional Information and Comments. Additional Clinical Information : Hereditary hemochromat osis (HFE related) is an autosomal recessive iron storage disorder. Patients may have a genetic diagnosis of hereditary hemochromat osis and never show clinical symptoms. Clinical symptoms typically appear between 40 to 60 years in males and after menopause in females. Signs and symptoms may include organ damage, primarily in the liver, risk for hepatocellu lar carcinoma, diabetes, and heart disease due to iron accumulatio n. Life expectancy may be decreased in individuals who develop cirrhosis. Treatment for clinically symptomatic individuals may include therapeutic phlebotomy. Liver transplant may be used to treat end stage liver failure. For preventive care, monitoring for iron overload is recommended for patients who are homozygous for c.845G>A (p.Anj966Yn r) and have yet to experience clinical symptoms. Comments: The most common HFE variants associated with hereditary hemochromat osis are c.845G>A (p.Jyp970Wn r), c.187C>G (p.Wls17Tca ), c.193A>T (p.Ccg44Nmq ). While patients homozygous for c.845G>A (p.Vdh552Gj r) are the most likely to present clinical symptoms, less than 10% develop clinically significant iron overload with tissue and organ damage. Genetic counseling is recommended to discuss the potential clinical implication s of positive results, as well as recommendat ions for testing family members. Child And Adolescent Therapist s are available for health care providers to discuss results at [phone] Test Details: Three variants analyzed: c.845G>A (p.Vbg523Ao r), commonly referred to as C282Y c.187C>G (p.Ant84Szx ), commonly referred to as H63D c.193A>T (p.Ahu24Nhg ), commonly referred to as S65C Methods/Chung itations: DNA Analysis of the HFE gene (NM_000410. [id number]) was performed by PCR amplificati on followed by restriction enzyme digestion analyses. Results must be combined with clinical information for the most accurate interpretat ion. Molecular- based testing is highly accurate, but as in any laboratory test, diagnostic errors may occur. False positive or false negative results may occur for reasons that include genetic variants, blood transfusion s, bone marrow transplanta tion, somatic or tissue-spec ific mosaicism, mislabeled samples, or erroneous representat ion of family relationshi ps. This test was developed and its performance characteris tics determined by [facility]. It has not been cleared or approved by the Food and Drug Administrat ion. References: Matthew BR, Wilber PC, Demarco KV, Rasheed LW, Nahum ; [place] [employer]. Diagnosis and management of hemochromat osis: 2011 practice guideline by the [place] [employer] Liver Diseases. Hepatology. 2011 Oct;54(1):3 28-43. doi: 10.1002/hep .22536. PMID: 34912181; PMCID: CDS5690476. Jeremiah G, Marek P, Sybil DW, Charles H, Randee O, Aditya S, Alfred I, Wilmer M, Bert S. [facility] best practice guidelines for the molecular genetic diagnosis of hereditary hemochromat osis (HH). Eur J Hum Jennifer. 2016 Jul;24(4):4 79-95. doi: 10.1038/ejh g.2015.128. Epub 2014Oct 16. PMID: 49452541; PMCID: PEZ7630354. [facility] RBC Count.LC 4.91 10^6/uL 01/11 0055[facility] Hemoglobin. LC 10.9 g/dL 01/11 L 0055A-3 [facility] Hematocrit. LC 37.7 % 01/11 [facility]55[facility] MCV.LC 77 fL 01/11 L 0055A[facility]3 [facility] MCHC.LC 28.9 g/dL 01/11 L 0055A[facility]3 [facility] RDW.LC 17.3 % 01/11 H 0055A[facility]3 [facility] Platelets.L C 320 10^3/uL 01/11 [facility]55A[facility]3 [facility] Neutrophils .LC 58 % 01/11 [facility]55A[facility]3 [facility] MCH.LC 22.2 pg 01/11 L 0055A[facility]3 [facility] Monocytes.L C 10 % 01/115A- [facility] Eos.LC 1 % 01/11- [facility] Basos.LC 1 % 01/11- [facility] Neutrophils (Abs).LC 2.8 10^3/uL 01/11- [facility] Lymphs.LC 30 % 01/115A- [facility] Eos (Abs).LC 0.1 10^3/uL 01/11- [facility] Basos (Abs).LC 0.0 10^3/uL 01/11- [facility] Immature Granulocyte s.LC 0 % 01/11- [facility] Lymphs (Abs).LC 1.4 10^3/uL 01/11- [facility] Monocytes (Abs).LC 0.5 10^3/uL 01/11- [facility] WBC.LC 4.8 10^3/uL 01/11- [facility] Immature Grans (Abs).LC 0.0 10^3/uL 01/11 Result Comment: Performed At: [address] [id number] Irma Jimenez PhD Ph:[phone] - [facility]- [facility] Chemistry Transferrin Sat 13 % 14 - 50 01/11 L [facility] Chemistry UIBC, 129.0 ug/dL 112.0 - 347.0 01/11 N [facility] Chemistry Iron 19 ug/dL 59 - 158 01/11 L Interpretiv e Data: METHODOLOGY : Testing performed by colorimetri c assay. [facility] Chemistry TIBC 148 ug/dL 250 - 400 10/03 /2024 L [facility] Chemistry Ferritin Lvl 3.57 ng/mL 30.00 - 400.00 01/11 L Interpretiv e Data: METHODOLOGY : Testing performed by electrochem iluminescen t immunoassay (ECLIA). [facility] Miscellan eous Sendouts LDH.LC 133 [iU]/L 01/11 Result Comment: Performed At: [address] [id number] Irma Jimenez PhD Ph:[phone] 0055A-[address] [facility] Chemistry Haptoglobin 81 mg/dL 01/11 Result Comment: Performed At: [address] [id number] Irma Jimenez PhD Ph:[phone] 0055A-[address] [facility] Hematolog y Smear Review See comment 01/11 Result Comment: Path review completed. WBCs: Normal count and differentia l. Granulocyte s exhibit appropriate maturation. RBCs: Microcytic anemia with anisocytosi s, with occasional ovalocytes, stomatocyte s, cell fragments and target cells. Platelets: appropriate in number, exhibiting normal size and granularity . Summary: Microcytic, hypochromic anemia. The differentia l diagnosis includes but is not limited to iron deficiency anemia, thalassemia s, blood loss, and anemia of chronic disease. Please correlate with clinical findings. Reviewed by Sriram Gonzalez MD 01/24/24 15:04:12 EDT 0095A-[address] [facility]- [facility]- [facility] Hematolog y Lymphocyte % Auto 34.1 % 20.0 - 40.0 12/26 N 0055A-3 [facility] Eos Absolute 0.1 x10^3/mc L 0.0 - 0.7103 12/26 N [facility]55A[facility]3 [facility] Eosinophil % Auto 1 % 0 - 5 12/26 N 0055A[facility]3 [facility] Baso Absolute 0.0 x10^3/mc L 0.0 - 0.1103 12/26 N 0055A[facility]3 [facility] Basophil % Auto 0.5 % 0.0 - 2.5 12/26 N 0055A-3 [facility]- [facility] Neutrophil % Auto 53.2 % 46.0 - 77.0 12/26 N 0055A-3 [facility]- [facility] Monocyte % Auto 10 % 1 - 12 12/26 N 0055A-3 [facility]- [facility] Neutro Absolute 2.2 x10^3/mc L 2.0 - 7.0103 12/26 N 0055A-3 [facility]- [facility] Hematolog y [place] Absolute 0.4 x10^3/mc L 0.2 - 0.8103 12/26 N 0055A-3 [facility]- [facility] Lymph Absolute 1.4 x10^3/mc L 1.2 - 4.0103 12/26 N 0055A-3 [facility]- [facility] Stomatocyte s Occasion al (12/27/23 7:59 AM) 12/26 N 005-3 [facility]- [facility] PLT Morph Adequate (12/27/23 7:59 AM) 12/26 N 005-3 [facility]- [facility] Ovalocytes Occasion al (12/27/23 7:59 AM) 12/26 N 005-3 [facility]- [facility]olog y Microcyte 1+ (12/27/23 7:59 AM) 12/26 N 005-3 [facility] Hypochrom 1+ (12/27/23 7:59 AM) 12/26 N 0055A-3 [facility]- [facility] PLT Estimate Not Performe d (12/27/23 7:59 AM) 150.0 - 450.0 12/26 N 0055A-3 [facility]- [facility] Platelets 320.0 x10^3/mc L 150.0 - 450.0103 12/26 N 0055A-3 [facility]- [facility] y MPV 10.1 fL 7.4 - 10.4 12/26 N 0055A-3 [facility]- [facility] Hematolog y WBC 4.2 x10^3/mc L 4.0 - 11.0103 12/26 N 0055A-[address] [facility] Hematolog y MCV 73 fL 80 - 97 12/26 L 0055A-[address] [place] [address]- [facility] RDW 18.7 % 11.0 - 14.9 12/26 H 0055A-[address] [place] [address]- [place] [facility]olog y MCH 22 pg 28 - 33 12/26 L 0055A-[address] [place] [address] Hematolog y MCHC 30.5 g/dL 33.0 - 36.5 12/26 L 0055A-[address] [place] [address] Hematolog y RBC 5.0 x10^6/mc L 4.0 - 5.6106 12/26 N 0055A-[address] [place] [address] Hematolog y Hemoglobin 11.1 g/dL 13.0 - 16.3 12/26 L 0055A-[address] [place] [address] Hematolog y Hematocrit 36 % 40 - 49 12/26 L 0055A-[address] [place] [address] Hematolog y Differentia l? Auto+Mor ph *ABN* (12/27/23 7:59 AM) 12/26 A 0055A-[address] [facility] Chemistry Calcium 9.3 mg/dL 8.4 - 10.2 12/26 N 0055A-[address] [place] [address] Chemistry CO2 25 mmol/L 22 - 29 12/26 N 0055A-[address] [place] [address] Chemistry Chloride 106 mmol/L 98 - 107 12/26 N 0055A-[address] [place] [address] Chemistry BUN/Creat Ratio 11 mg/dL 12 - 20 12/26 L 0055A-[address] [facility] Chemistry BUN 11 mg/dL 8 - 26 12/26 N 0055A-[address] [place] [address] Chemistry Bilirubin Total 0.6 mg/dL 0.2 - 1.2 12/26 N 0055A-[address] [place] [address] Chemistry Protein Total 6.9 g/dL 6.4 - 8.3 12/26 N 0055A-[address] [place] [address] Chemistry AST 17 U/L 5 - 34 12/26 N 0055A-[address] [place] [address] Chemistry Sodium 140 mmol/L 136 - 145 12/[address] [place] [address] Chemistry ALT 16 U/L 5 - 55 12/[address] [place] [address] Chemistry Creatinine Level 1.00 mg/dL 0.72 - 1.25 12/26 N - [address] [place] [address] Chemistry Albumin 3.80 g/dL 3.50 - 5.20 12/[address] [place] [address] Chemistry AGAP 9.00 0.00 - 15.00 12/[address] [place] [address] Chemistry Potassium Lvl 3.8 mmol/L 3.5 - 5.1 12/[address] [place] [address] Chemistry Glucose Lvl 100 mg/dL 74 - 99 12/[address] [place] [address] Chemistry Alk Phos 49 U/L 40 - 150 12/[address] [place] [address] Chemistry eAvg Glucose 117 mg/dL 12/[address] [place] [address] Chemistry Hemoglobin A1c 5.7 % 4.0 - 5.6 12/26 H Interpretiv e Data: Normal: 4.0 - 5.6% Increased Risk: 5.7 - 6.4% Diabetic Range: 6.5% For patients without diabetes, the normal range for the hemoglobin A1c test is between 4% and 5.6%. Hemoglobin A1c levels between 5.7% and 6.4% indicate increased risk of diabetes, and levels of 6.5% or higher indicate diabetes. Because studies have repeatedly shown that out-of-cont rol diabetes results in complicatio ns from the disease, the goal for people with diabetes is a hemoglobin A1c less than 7%. The higher the hemoglobin A1c, the higher the risks of developing complicatio ns related to diabetes. If confirmatio n is needed, consider recalling the patient and ordering Hemoglobin Electrophor esis. [address] [place] [address] Chemistry Chol/HDL 4 mg/dL 12/[address] [place] [address] Chemistry HDL Cholesterol 47 mg/dL 40 - 59 12/26 N Interpretiv e Data: HDL (HIGH DENSITY LIPOPROTEIN ): ADULTS: Low: < 40 mg/dL High: >/= 60 mg/dL AGES 0 -19: Low: < 40 mg/dL Borderline Low: 40 - 45 mg/dL Acceptable: > 45 mg/dL [address] [place] [address] [facility] Cholesterol Total 181 mg/dL 12/26 N Interpretiv e Data: According to the [employer] : AGES 0-19: Desirable: < 170 mg/dL Borderline High: 170-199 mg/dL High Blood Cholesterol : >/= 200 mg/dL ADULTS: Desirable < 200 mg/dL Borderline High: 200-239 mg/dL High Blood Cholesterol : >/= 240 mg/dL - [facility] Chemistry Triglycerid es 114 mg/dL 7 - 149 12/26 N Interpretiv e Data: AGES 0-9: Desirable: < 75 mg/dL Borderline High: 75-99 mg/dL High: >/= 100 mg/dL AGES 10-19: Desirable: < 90 mg/dL Borderline High: 90-129 mg/dL High: >/= 130 mg/dL ADULTS: Desirable: < 150 mg/dL Borderline High: 150-199 mg/dL High: >/= 240 mg/dL Very High: >/= 500 mg/dL - [facility] Chemistry LDL/HDL 3 12/26- [address] [place] [address] [facility] Chemistry LDL 134 mg/dL 100 - 130 12/26 H Interpretiv e Data: AGES 0-19: Desirable: < 110 mg/dL Borderline High: 110-129 mg/dL High: >/= 130 mg/dL ADULTS: Desirable: <100 mg/dL Near/above optimal: 100-130 mg/dL Borderline High: 131-159 mg/dL High: 160-189 mg/dL Very High: 190 mg/dL - 75[facility] Chemistry Testosteron e Serum LC 606 ng/dL 12/26 Result Comment: Adult male reference interval is based on a population of healthy nonobese males (BMI <30) between 19 and 39 years old. gerard Moreau.al. JCEM 2017,102;11 61-1173. PMID: [id number]. Performed At: [address] [id number] Irma Jimenez PhD Ph:[phone] 0055A-[address] [place] [address] Chemistry Vitamin D 25 OH 69.5 ng/mL 30.0 - 100.0 12/26 N Interpretiv e Data: Classificat ion of Vitamin D Status: Deficient: <20 ng/mL Insufficien t: 20-29 ng/mL Sufficient: 30-100 ng/mL Possible Toxicity: >100 ng/mL This assay is for the quantitativ e determinati on of total 25 (OH) vitamin D. It is intended as an aid in the determinati on of vitamin D sufficiency . Results should always be interpreted in conjunction with the patient's medical history, clinical presentatio n, and other findings. Testing performed by [facility]. [facility] [place] [facility] Chemistry TSH 1.200 mIU/L 0.270 - 4.200 12/26 N Interpretiv e Data: Recommend: TPO/Thyrope roxidase Antibody when TSH result is > 4.2 uIU/mL 5600[facility]U [facility] Chemistry PSA Total 0.72 ng/mL 0.05 - 2.00 12/26 N Interpretiv e Data: This assay shows no biotin interferenc e in samples with biotin concentrati ons up to 1200 ng/mL. 0117A-A F-ASU-5 [facility] Chemistry eGFR CKD EPI 94 mL/min/1 .73_m2 12/26 Interpretiv e Data: Estimated Glomerular Filtration Rate (eGFR) calculated using the 2020 Chronic Kidney Disease-Epi demiology (CKD-EPI) Collaborati on creatinine equation; units of measure are mL/min/1.73 m2. Results are only valid for adults (>=18 years) whose serum creatinine is in steady state. eGFR calculation s are not valid for patients with acute kidney injury and for patients on dialysis. Creatinine- based estimates of kidney function may also be inaccurate in patients with reduced creatinine generation due to decreased muscle mass (e.g., malnutritio n, severe hypoalbumin emia, sarcopenia, chronic neuromuscul ar disease, amputations , severe heart failure or liver disease) and in patients with increased creatinine generation due to increased muscle mass (e.g., muscle builders, anabolic steroids) or increased dietary intake. CKD is diagnosed based on abnormaliti es of kidney structure or function, present for >3 months, with implication s for health and disease. CKD is classified and staged based on cause, eGFR and albuminuria (quantified as urine albumin to creatinine ratio). An eGFR >60 mL/min/1.73 m2 in the absence of increased urine albumin excretion or structural abnormaliti es does not CKD. eGFR provides only an estimate of measured GFR within +/- 30% for most patients. As mentioned, nutritional status and muscle mass, among many factors, may lead to inaccuracy in the estimate. Consider ordering the creatinine- cystatin C panel if better accuracy is needed for clinical decision-radha remy. eGFR (mL/min/1.7 3 m2) CKD stage Interpretat ion Normal 60-89 Mild decrease 45-59 Mild to moderate decrease 30-44 Moderate to severe decrease 15-29 Severe decrease <15 Kidney failure 0055A-[address] [place] [address] URINALYSI S ([place]) COLOR OF URINE Yellow 01/13 Specimen Type: URINE Comment: Microscopic not indicated Ordering Provider: RAKESH PARRA Report Released Date/Time: Jan 13, 2023 12:12 PM Reporting Lab: [address] [facility] [address] Performing Lab: [address] [facility] [address] [facility] URINALYSI S (PAULETTE) *URINE APPEARANCE Clear 01/13 Specimen Type: URINE Comment: Microscopic not indicated Ordering Provider: RAKESH PARRA Report Released Date/Time: Jan 13, 2023 12:12 PM Reporting Lab: [address] [facility] [address] Performing Lab: [address] [facility] [address] [facility] URINALYSI S ([place]) PROTEIN [MASS/TIME] IN 24 HOUR URINE Negative mg/dL 01/13 Specimen Type: URINE Comment: Microscopic not indicated Ordering Provider: RAKESH PARRA Report Released Date/Time: Jan 13, 2023 12:12 PM Reporting Lab: [address] [facility] [address] Performing Lab: [facility] [address] [facility] [address] [facility] URINALYSI S ([place]) LEUKOCYTE ESTERASE [PRESENCE] IN URINE BY TEST STRIP Negative 01/13 Specimen Type: URINE Comment: Microscopic not indicated Ordering Provider: RAKESH PARRA Report Released Date/Time: Jan 13, 2023 12:12 PM Reporting Lab: [facility] [address] [facility] [address] Performing Lab: [facility] [address] [place] [address] [facility] URINALYSI S ([place]) NITRITE [PRESENCE] IN URINE BY TEST STRIP Negative 01/13 Specimen Type: URINE Comment: Microscopic not indicated Ordering Provider: RAKESH PARRA Report Released Date/Time: Jan 13, 2023 12:12 PM Reporting Lab: [facility] [address] [place] [phone] Performing Lab: [address] [address] [facility] URINALYSI S ([place]) *URINE BLOOD Negative 01/13 Specimen Type: URINE Comment: Microscopic not indicated Ordering Provider: RAKESH PARRA Report Released Date/Time: Jan 13, 2023 12:12 PM Reporting Lab: [facility] [address] [place] [address] Performing Lab: [facility] [address] [place] [phone] [facility] URINALYSI S ([place]) GLUCOSE [MASS/VOLUM E] IN 24 HOUR URINE Negative mg/dL 01/13 Specimen Type: URINE Comment: Microscopic not indicated Ordering Provider: RAKESH PARRA Report Released Date/Time: Jan 13, 2023 12:12 PM Reporting Lab: [facility] [address] [facility] [phone] Performing Lab: [facility] [address] [place] [phone] [facility] URINALYSI S ([place]) KETONES [MASS/VOLUM E] IN URINE BY TEST STRIP Negative mg/dL 01/13 Specimen Type: URINE Comment: Microscopic not indicated Ordering Provider: RAKESH PARRA Report Released Date/Time: Jan 13, 2023 12:12 PM Reporting Lab: [address] [address] Performing Lab: [address] [address] [facility] URINALYSI S ([place]) PH OF URINE BY TEST STRIP 6.5 5.0 - 8.0 01/13 Specimen Type: URINE Comment: Microscopic not indicated Ordering Provider: RAKESH PARRA Report Released Date/Time: Jan 13, 2023 12:12 PM Reporting Lab: [address] [address] Performing Lab: [address] [address] [facility] URINALYSI S ([place]) SPECIFIC GRAVITY OF URINE 1.019 1.005 - 1.030 01/13 Specimen Type: URINE Comment: Microscopic not indicated Ordering Provider: RAKESH PARRA Report Released Date/Time: Jan 13, 2023 12:12 PM Reporting Lab: [address] [address] Performing Lab: [address] [address] [facility] URINALYSI S ([place]) BILIRUBIN.T OTAL [PRESENCE] IN URINE BY TEST STRIP Negative 01/13 Specimen Type: URINE Comment: Microscopic not indicated Ordering Provider: RAKESH PARRA Report Released Date/Time: Jan 13, 2023 12:12 PM Reporting Lab: [address] [address] Performing Lab: [address] [address] [facility] URINALYSI S ([place]) *URINE UROBILINOGE N Normalmg /dL 01/13 Specimen Type: URINE Comment: Microscopic not indicated Ordering Provider: RAKESH PARRA Report Released Date/Time: Jan 13, 2023 12:12 PM Reporting Lab: [place] [address] [facility] [address] Performing Lab: [facility] [address] [facility] [address] [facility] VITAMIN B12 COBALAMIN (VITAMIN B12) [MASS/VOLUM E] IN SERUM OR PLASMA 435.1 pg/mL 213 - 816 12/09 Specimen Type: SERUM No comment entered. Ordering Provider: KATHRYN MEDINA Report Released Date/Time: Dec 09, 2022 03:18 PM Reporting Lab: [address] [facility] [address] Performing Lab: [address] [facility] [address] [facility] Vital Signs Combined list of inpatient and outpatient Vital Signs from Department of Defense and Veterans Affairs, ranging from 12 months to all on record, depending upon the facility. Vital Sign Value Date Comments Source Systolic Blood Pressure 115 mm[Hg] 06/08/2024 21:48:00 [facility] Diastolic Blood Pressure 66 mm[Hg] 06/08/2024 21:48:00 [facility] Respiratory Rate 18 br/min 06/08/2024 21:48:00 [facility] Mean Arterial Pressure, Calc 82 mm[Hg] 06/08/2024 21:48:00 [facility] Peripheral Pulse Rate 87 bpm 06/08/2024 21:48:00 [facility] Temperature Tympanic 36.8 [place] 06/08/2024 21:48:00 [facility] BP Site Left arm 06/08/2024 21:48:00 [facility] BP Site Left arm 07/18/2023 13:01:00 00[facility] Blood Pressure Manual Automatic 07/18/2023 13:01:00 [facility] Temperature Oral 37.1 [place] 07/18/2023 13:01:00 [facility] Systolic Blood Pressure 125 mm[Hg] 03/13/2024 16:13:00 [facility] Diastolic Blood Pressure 86 mm[Hg] 03/13/2024 16:13:00 [facility] Mean Arterial Pressure, Calc 99 mm[Hg] 03/13/2024 16:13:00 [facility] Peripheral Pulse Rate 58 bpm 03/13/2024 16:13:00 [facility] Respiratory Rate 16 br/min 03/13/2024 16:13:00 [facility] Temperature Oral 36.5 [place] 03/13/2024 16:13:00 [facility] BP Site Left arm 03/13/2024 16:13:00 00[facility] Blood Pressure Manual Automatic 03/13/2024 16:13:00 [facility] Mean Arterial Pressure, Calc 84 mm[Hg] 02/16/2024 14:21:00 [facility] Temperature Oral 36.8 [place] 02/16/2024 14:21:00 [facility] Respiratory Rate 16 br/min 02/16/2024 14:21:00 [facility] Peripheral Pulse Rate 83 bpm 02/16/2024 14:21:00 [facility] Systolic Blood Pressure 107 mm[Hg] 02/16/2024 14:21:00 [facility] Diastolic Blood Pressure 73 mm[Hg] 02/16/2024 14:21:00 [facility] Blood Pressure Manual Automatic 12/05/2023 13:19:00 [facility] BP Site Left arm 12/05/2023 13:19:00 [facility] Mean Arterial Pressure, Calc 78 mm[Hg] 12/05/2023 13:19:00 [facility] Peripheral Pulse Rate 70 bpm 12/05/2023 13:19:00 [facility] Respiratory Rate 16 br/min 12/05/2023 13:19:00 [facility] Temperature Oral 36.9 [place] 12/05/2023 13:19:00 [facility] Systolic Blood Pressure 98 mm[Hg] 12/05/2023 13:19:00 [facility] Diastolic Blood Pressure 68 mm[Hg] 12/05/2023 13:19:00 [facility] BP Site Left arm 10/21/2023 14:01:00 [facility] Blood Pressure Manual Automatic 10/21/2023 14:01:00 [facility] Systolic Blood Pressure 118 mm[Hg] 10/21/2023 14:01:00 [facility] Diastolic Blood Pressure 79 mm[Hg] 10/21/2023 14:01:00 [facility] Temperature Oral 36.9 [place] 10/21/2023 14:01:00 [facility] Peripheral Pulse Rate 84 bpm 10/21/2023 14:01:00 [facility] Mean Arterial Pressure, Calc 92 mm[Hg] 10/21/2023 14:01:00 [facility] Respiratory Rate 16 br/min 10/21/2023 14:01:00 [facility] Mean Arterial Pressure, Calc 84 mm[Hg] 02/21/2024 14:31:00 [facility] Respiratory Rate 16 br/min 02/21/2024 14:31:00 [facility] Peripheral Pulse Rate 72 bpm 02/21/2024 14:31:00 [facility] Temperature Oral 36.8 [place] 02/21/2024 14:31:00 [facility] Systolic Blood Pressure 107 mm[Hg] 02/21/2024 14:31:00 [facility] Diastolic Blood Pressure 72 mm[Hg] 02/21/2024 14:31:00 [facility] Mean Arterial Pressure, Calc 80 mm[Hg] 10/18/2023 13:30:00 [facility] Systolic Blood Pressure 113 mm[Hg] 10/18/2023 13:30:00 [facility] Diastolic Blood Pressure 64 mm[Hg] 10/18/2023 13:30:00 [facility] Temperature Oral 36.9 [place] 10/18/2023 13:30:00 [facility] Respiratory Rate 16 br/min 10/18/2023 13:30:00 [facility] Blood Pressure Manual Automatic 10/18/2023 13:30:00 [facility] BP Site Left arm 10/18/2023 13:30:00 [facility] Peripheral Pulse Rate 50 bpm 10/18/2023 13:30:00 [facility] Mean Arterial Pressure, Calc 85 mm[Hg] 12/13/2023 14:58:00 [facility] Systolic Blood Pressure 112 mm[Hg] 12/13/2023 14:58:00 [facility] Diastolic Blood Pressure 72 mm[Hg] 12/13/2023 14:58:00 [facility] Temperature Oral 36.8 [place] 12/13/2023 14:58:00 [facility] Respiratory Rate 16 br/min 12/13/2023 14:58:00 [facility] Peripheral Pulse Rate 58 bpm 12/13/2023 14:58:00 [facility] Blood Pressure Manual Automatic 12/13/2023 14:58:00 [facility] BP Site Left arm 12/13/2023 14:58:00 [facility] Systolic Blood Pressure 96 mm[Hg] 11/04/2023 19:16:00 [facility] Diastolic Blood Pressure 64 mm[Hg] 11/04/2023 19:16:00 [facility] Temperature Oral 36.5 [place] 11/04/2023 19:16:00 [facility] Respiratory Rate 16 br/min 11/04/2023 19:16:00 [facility] Peripheral Pulse Rate 74 bpm 11/04/2023 19:16:00 [facility] Mean Arterial Pressure, Calc 75 mm[Hg] 11/04/2023 19:16:00 [facility] Blood Pressure Manual Automatic 11/04/2023 19:16:00 [facility] BP Site Right arm 11/04/2023 19:16:00 [facility] Blood Pressure Manual Automatic 06/22/2024 15:31:00 [facility] BP Site Left arm 06/22/2024 15:31:00 [facility] Mean Arterial Pressure, Calc 85 mm[Hg] 06/22/2024 15:31:00 [facility] Systolic Blood Pressure 110 mm[Hg] 06/22/2024 15:31:00 [facility] Diastolic Blood Pressure 72 mm[Hg] 06/22/2024 15:31:00 [facility] Respiratory Rate 16 br/min 06/22/2024 15:31:00 [facility] Peripheral Pulse Rate 60 bpm 06/22/2024 15:31:00 [facility] Blood Pressure Manual Automatic 06/29/2023 12:36:00 [facility] BP Site Left arm 06/29/2023 12:36:00 [facility] Temperature Oral 36.4 [place] 06/29/2023 12:36:00 [facility] Encounters Combined list of: 1) Encounters from Department of Veterans Affairs facilities going backup to the last 18 months, not all [place] inpatient encounters are included; 2) Encounters from the Department of Defense facilities going backup to 280 months. Location Location Details Encounter Type Encounter Number Reason For Visit Attending Provider ADM Date DC Date Status Disposition Source [facility] Outpatient Encounter [id number] 01/26 [facility] Outpatient Encounter [id number] Diagnos is: ICD-10- CM Z00.00 Encntr for general adult medical exam w/o abnorma l finding s KASIA CALLAWAY K E 02/01 [facility] Outpatient Encounter [id number] 02/02 [facility] THERAPEUTI C EXERCISES [id number] Diagnos is: ICD-10- CM M25.512 Pain in left shoulde rahul ME BEATRIZ PETERS 02/02 [facility] Outpatient Encounter [id number] 02/02 [facility] QNHP OL DIG ASSMT&MGMT 21+ [id number] Diagnos is: ICD-10- CM R32 Unspeci fied urinary inconti LIZETTE Gordon 02/02 [facility] Outpatient Encounter [id number] 02/02 [facility] OFFICE O/P EST LOW 20-29 MIN [id number] Diagnos is: ICD-10- CM M47.896 Other spondyl osis, lumbar region Pradip BHAGAT 02/02 [facility] Outpatient Encounter [id number] 02/02 [facility] Outpatient Encounter [id number] ROB REYES 02/[address] [facility] CHIROPRACT MANJ 3-4 [facility] [id number] Diagnos is: ICD-10- CM M47.896 Other spondyl osis, lumbar region ARAM ERNST 02/07 [facility] [place] THERAPEUTI C EXERCISES [id number] Diagnos is: ICD-10- CM M25.512 Pain in left shoulde rahul ME BEATRIZ PETERS 02/09 [facility] Outpatient Encounter [id number] Pennie ERNANDEZ ETH A 02/09 [facility] MYOCRD STRAIN IMG SPCKL TRCK [id number] Diagnos is: ICD-10- CM R07.9 Chest pain, unspeci fied PARASHARA, ROBERTO K 02/[address] [facility] CHIROPRACT MANJ 3-4 [place] [id number] Diagnos is: ICD-10- CM M47.896 Other spondyl osis, lumbar region ARAM ERNST 02/14 [facility] [place] Outpatient Encounter [id number] 02/16 [facility] Outpatient Encounter [id number] ROB REYES STIE 02/17 [facility] Outpatient Encounter [id number] ROB REYES STIE 02/21 [facility] Outpatient Encounter [id number] 02/26 [facility] Outpatient Encounter [id number] 03/02 [facility] Outpatient Encounter [id number] 03/12 [facility] Outpatient Encounter [id number] Pennie ERNANDEZ ETH A 03/30 [facility] Outpatient Encounter [id number] 07/05 [facility] Outpatient Encounter [id number] 07/[address] [facility]IR[facility]CT MANJ 3-4 [place] [id number] Diagnos is: ICD-10- CM M54.51 Vertebr ogenic low back pain ARAM ERNST 01/16 [facility] [place] Outpatient Encounter [id number] 01/31 [facility] Outpatient [id number] Segment al and somatic dysfunc tion of thoraci c region, Pain in left hip,Spi nal stenosi s, lumbar region without neuroge oscar claudic ation,R adiculo chrissie, lumbar region, Segment al and somatic dysfunc tion of lumbar region, Segment al and somatic dysfunc tion of cervica l region BINU VERA EUGENE 07/11 Discharge Disposition: Home or Self Care [facility] Between Visit [id number] 07/16 Discharge Disposition: Home or Self Care 5C-3 [facility] Outpatient [id number] Spinal stenosi s, lumbar region without neuroge oscar claudic ation,S egmenta l and somatic dysfunc tion of lumbar region, Segment al and somatic dysfunc tion of cervica l region, Segment al and somatic dysfunc tion of thoraci c region BINU CHIUWOLF EUGENE 07/20 Discharge Disposition: Home or Self Care 5A-3 [facility] Between Visit [id number] 07/25 Discharge Disposition: Home or Self Care 5C[facility]3 [facility] PreRecurri [id number] BINU CHIUWOLF EUGENE 07/27-3 [facility] Procedures Combined list of: 1) Procedures from Department of Veterans Affairs facilities going back up to thelast 18 months, not all VA non-surgical procedures are included; 2) All procedures from the Department of Defense facilities. Procedure Procedure Type Code Date Perfomer Comments Sourc e No data available for this section Ambulatory P harmacy Social History Combined list of available smoking, tobacco, and other social history from Department of [facility] and 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 Social History Type Response Date Comment Sourc e Tobacco smoking status NHIS VA-TOBACCO NEVER USED 01/13/2023 [facility] History of tobacco use VA-TOBACCO NEVER USED 12/23/2021 [facility] History of tobacco use VA-TOBACCO NEVER USED 12/24/2020 [facility] History of tobacco use VA-TOBACCO NEVER USED 12/20/2019 [facility] History of tobacco use VA-TOBACCO NEVER USED 11/13/2018 [facility] History of tobacco use V9 LIFETIME NON-USER OF TOBACCO 12/07/2017 [facility]ENN[facility]RIG[facility] History of tobacco use V9 LIFETIME NON-TOBACCO USER 11/28/2013 [facility] History of tobacco use V9 LIFETIME NON-TOBACCO USER 10/07/2009 [facility] History of tobacco use V9 LIFETIME NON-TOBACCO USER 07/05/2007 [facility] History of tobacco use V9 LIFETIME NON-TOBACCO USER 02/07/2007 [facility] History of tobacco use V9 LIFETIME NON-TOBACCO USER 01/13/2006 [facility] Tobacco Cigarette use: Never-cigarette user. Other Tobacco use: Never-other tobacco user (not cigarettes). Ambulatory Pharmacy Sexual Orientation Ambula tory Pharmacy Gender identity Ambulator y Pharmacy Sex Representation Male (finding) Un known Organization Assessment and Plan Combined list of future care activities from Department of Defense and Veterans Affairs facilities (e.g., assessment and plan notes, appointments, orders, and referrals). Additional future care activities may be listed in the Plan of Care section. Result Assessment and Plan Date Source Assessment and Plan Extracted from:Title : FTR - Low back pain Author: BINU LIN DC Date: 07/20/24 D iagnosis: 1 . S ryne stenosis, lumbar region without neurogenic claudication Comment: Ordered: Manual Therapy Tqs 1/> Regions Each 15 Minutes [id number]; 07/20/2024 09:03:00 CDT, 59, Spinal stenosis, lumbar region without neurogenic claudication Segmental and somatic dysfunction of lumbar region ? Chiropractic Manipulative Tx Spinal 3-4 Regions [id number]; 07/20/2024 09:03:00 CDT, Spinal stenosis, lumbar region without neurogenic claudication Segmental and somatic dysfunction of lumbar region Segmental and somatic dysfunction of thoracic region Segmental and somatic dysfunction of cervical region D iagnosis: 2 . S egmental and somatic dysfunction of lumbar region Comment: Ordered: Manual Therapy Tqs 1/> Regions Each 15 Minutes [id number]; 07/20/2024 09:03:00 CDT, 59, Spinal stenosis, lumbar region without neurogenic claudication Segmental and somatic dysfunction of lumbar region ? Chiropractic Manipulative Tx Spinal 3-4 Regions [id number]; 07/20/2024 09:03:00 CDT, Spinal stenosis, lumbar region without neurogenic claudication Segmental and somatic dysfunction of lumbar region Segmental and somatic dysfunction of thoracic region Segmental and somatic dysfunction of cervical region D iagnosis: 3 . S egmental and somatic dysfunction of thoracic region Comment: Ordered: Chiropractic Manipulative Tx Spinal 3-4 Regions [id number]; 07/20/2024 09:03:00 CDT, Spinal stenosis, lumbar region without neurogenic claudication Segmental and somatic dysfunction of lumbar region Segmental and somatic dysfunction of thoracic region Segmental and somatic dysfunction of cervical region D iagnosis: 4 . S egmental and somatic dysfunction of cervical region Comment: Ordered: Chiropractic Manipulative Tx Spinal 3-4 Regions [id number]; 07/20/2024 09:03:00 CDT, Spinal stenosis, lumbar region without neurogenic claudication Segmental and somatic dysfunction of lumbar region Segmental and somatic dysfunction of thoracic region Segmental and somatic dysfunction of cervical region End of Orders Chiropractic Treatment Chiropractic Diversified Adjustments P safia to C/S P safia T/S, S jose posture to [place], SI and L/S A T Performed attended, prone, Ray Flexion/Distraction (12min) to L/S, Protocol II, -59 Distinct separate procedure Therapeutic Modalities None Exercises Continue exercises as prescribed in treatment plan. Final Disposition Patient responded f air to care m arked by s ome mild p alliation of p ain with n o?hard radicualar s /sx, however, h is m oderate pain w ith radiation i nto the?left hip c ontinues s /p chiropractic treatment. Physician Signature //SIGNED// Dr. Binu Lin DC, [facility] Chiropractic Physician [facility] [employer] [facility] DSN/Comm: [phone] / [phone] 07/20/24 09:01:04 Extracted from:Title: FTR - Low back pain Author: BINU LIN DC Date: 07/11/24 Diagnosis: P ain in left hip Comment: Ordered: Needle Insertion(S) Without Injection(S); 3 Or More Muscles ; 07/11/2024 08:55:00 CDT, Pain in left hip ? Manual Therapy Tqs 1/> Regions Each 15 Minutes [id number]; 07/11/2024 08:28:00 CDT, 59, Spinal stenosis, lumbar region without neurogenic claudication Radiculopathy, lumbar region Pain in left hip Segmental and somatic dysfunction of lumbar region ? Chiropractic Manipulative Tx Spinal 3-4 Regions [id number]; 07/11/2024 08:28:00 CDT, Spinal stenosis, lumbar region without neurogenic claudication Radiculopathy, lumbar region Pain in left hip Segmental and somatic dysfunction of lumbar region Segmental and somatic dysfunction of thoracic region Seg... D iagnosis: R adiculopathy, lumbar region Comment: Ordered: Manual Therapy Tqs 1/> Regions Each 15 Minutes [id number]; 07/11/2024 08:28:00 CDT, 59, Spinal stenosis, lumbar region without neurogenic claudication Radiculopathy, lumbar region Pain in left hip Segmental and somatic dysfunction of lumbar region ? Chiropractic Manipulative Tx Spinal 3-4 Regions [id number]; 07/11/2024 08:28:00 CDT, Spinal stenosis, lumbar region without neurogenic claudication Radiculopathy, lumbar region Pain in left hip Segmental and somatic dysfunction of lumbar region Segmental and somatic dysfunction of thoracic region Seg... D iagnosis: S egmental and somatic dysfunction of cervical region Comment: Ordered: Chiropractic Manipulative Tx Spinal 3-4 Regions [id number]; 07/11/2024 08:28:00 CDT, Spinal stenosis, lumbar region without neurogenic claudication Radiculopathy, lumbar region Pain in left hip Segmental and somatic dysfunction of lumbar region Segmental and somatic dysfunction of thoracic region Seg... D iagnosis: S egmental and somatic dysfunction of lumbar region Comment: Ordered: Manual Therapy Tqs 1/> Regions Each 15 Minutes [id number]; 07/11/2024 08:28:00 CDT, 59, Spinal stenosis, lumbar region without neurogenic claudication Radiculopathy, lumbar region Pain in left hip Segmental and somatic dysfunction of lumbar region ? Chiropractic Manipulative Tx Spinal 3-4 Regions [id number]; 07/11/2024 08:28:00 CDT, Spinal stenosis, lumbar region without neurogenic claudication Radiculopathy, lumbar region Pain in left hip Segmental and somatic dysfunction of lumbar region Segmental and somatic dysfunction of thoracic region Seg... D iagnosis: S egmental and somatic dysfunction of thoracic region Comment: Ordered: Chiropractic Manipulative Tx Spinal 3-4 Regions [id number]; 07/11/2024 08:28:00 CDT, Spinal stenosis, lumbar region without neurogenic claudication Radiculopathy, lumbar region Pain in left hip Segmental and somatic dysfunction of lumbar region Segmental and somatic dysfunction of thoracic region Seg... D iagnosis: S ryne stenosis, lumbar region without neurogenic claudication Comment: Ordered: Manual Therapy Tqs 1/> Regions Each 15 Minutes [id number]; 07/11/2024 08:28:00 CDT, 59, Spinal stenosis, lumbar region without neurogenic claudication Radiculopathy, lumbar region Pain in left hip Segmental and somatic dysfunction of lumbar region ? Chiropractic Manipulative Tx Spinal 3-4 Regions [id number]; 07/11/2024 08:28:00 CDT, Spinal stenosis, lumbar region without neurogenic claudication Radiculopathy, lumbar region Pain in left hip Segmental and somatic dysfunction of lumbar region Segmental and somatic dysfunction of thoracic region Seg... End of Orders Chiropractic Treatment Chiropractic Diversified Adjustments S upine to C/S P safia T/S, S jose posture to [place], SI and L/S A T Performed attended, prone, Ray Flexion/Distraction (12min) to L/S, Protocol II, -59 Distinct separate procedure Dry Needling Addition: SCREENING: No contra-indications to dry needling (DN) were identified on screening. CONSENT: Patient provided verbal consent after discussion of DN technique, risk/benefits and potential side-effects. VERIFICATION: Prior to procedure, treatment site(s) verified and time out performed. PROCEDURE: P atient _ w ith dry needling performed to following structures that on physical exam?revealed taut bands, focal tenderness and/or hypertonicity felt to contribute to patient s chief complaints of pain and/or decreased function. The following areas were palpated and tender points located in the following locations: G luteus minimus (M-BW-24)Gluteus medius (M-BW-24)Proximal Semimembranosis and Semitendonosis (BL36)Piriformis (GB30)Gluteus desiree (BL54). These areas were cleansed thoroughly with an alcohol swab and a d ry needle was inserted in each tender point. P t tolerated the procedure well. E BL 0/ [place] Used During this procedure: 5 n eedles inserted and 5 r emoved S elect # n eedles . 30 x 60 mm/?5 n eedles ) 16127 - Needle insertion(s) without i njection(s); m ultiple muscle(s) W o r W/O c onstant attended electrical stimulation (22711) x 1 5 m ins a nd soft-tissue mobilization (66379) of trigger points was performed a nd specific care t o avoid the lung field/intercostal regions and/or neurovascular structures. Needling was completed with sterile solid filament needles. Response to treatment: Patient tolerated the procedure well with E BL 0 and d isplayed no significant negative reaction, shortness of breath, bleeding, syncope or other complications post procedure. Patient independently teodoro from exam table and ambulated out of the clinic without complication. Pain control was acceptable to patient prior to departure from clinic. Response: G ood w/ no adverse reactions, aside from general soreness Safety: - [place] precautions and clean dry needling technique were utilized during this procedure. This includes hand hygiene, wearing of treatment gloves, preparing the patient s skin over treatment area with a lcohol wipe, and the use of sterile, solid filament, single patient use needles. - Specific techniques were used to avoid the lung mar and/or neurovascular structures. - Visual inspection after treatment revealed all needles were removed and disposed of in the sharps container. Post-Procedure Instructions: Post-procedure education handout provided. P atient instructed to expect mild to moderate muscle soreness for 24-48 hours and to take a hot bath/shower or use hot packs as well as stretch the involved area to minimize soreness. P atient instructed to seek immediate medical attention should they develop redness in the area, fever, chills, nausea, vomiting, or shortness of breath. Exercises Continue exercises as prescribed in treatment plan. Final Disposition Patient responded w ell to care m arked by d ecreased intensity of pain increased ROM? s /p chiropractic treatment. Physician Signature //SIGNED// Dr. Binu Lin DC, [facility] Chiropractic Physician [address] [facility] Tal[facility] Main Line DSN/Comm: [phone] / [phone] 07/11/24 08:38:24 Extracted from:Title: [facility] Author: LORRAINE NAQVI PA Date: 06/22/24 1. I DA - Iron deficiency anemia 48 Years o ld M w/ PMH of MARV[place] h ere for ED f/u. Pt visited ED yesterday for dizziness and fatigue. Reports Hgb was 11.5. Pt currently asx. Reports he stopped taking iron supplement in Feb 2024 d /t GI upset. Colonoscopy from Jan 2024 neg for GI malignancy. P t is having trouble scheduling appt t o continue care with GI d/t insurance changes. Pt requesting Hematology referral. - Hematology referral placed - ED precautions given - F/u once c onsult c ompleted Ordered: Referral Request 2.0 - DoD 2. O ME - Otitis media with effusion Pt reports recent AOM of L ear treated with Augmentin. States he has 4 days left of ABX. OME of R ear seen on exam. - Afrin 0.65% 2 spray bid x 3 days. Counseled on u se - ED precautions given - F/u prn Medications reconciled. Pt verbalized understanding and agreement. LORRAINE NAQVI E, 1st Lt, PA-[employer] [place] [address] Extracted from:Title: FTR - Low back pain Author: BINU LIN DC Date: 06/20/24 D iagnosis: 1 . S ryne stenosis, lumbar region without neurogenic claudication Comment: Ordered: Manual Therapy Tqs 1/> Regions Each 15 Minutes [id number]; 06/20/2024 15:51:00 CDT, 59, Radiculopathy, lumbar region Spinal stenosis, lumbar region without neurogenic claudication ? Chiropractic Manipulative Tx Spinal 3-4 Regions [id number]; 06/20/2024 15:51:00 CDT, Radiculopathy, lumbar region Spinal stenosis, lumbar region without neurogenic claudication Segmental and somatic dysfunction of lumbar region Segmental and somatic dysfunction of thoracic region Segmental and somatic... D iagnosis: 2 . R adiculopathy, lumbar region Comment: Ordered: Manual Therapy Tqs 1/> Regions Each 15 Minutes [id number]; 06/20/2024 15:51:00 CDT, 59, Radiculopathy, lumbar region Spinal stenosis, lumbar region without neurogenic claudication ? Chiropractic Manipulative Tx Spinal 3-4 Regions [id number]; 06/20/2024 15:51:00 CDT, Radiculopathy, lumbar region Spinal stenosis, lumbar region without neurogenic claudication Segmental and somatic dysfunction of lumbar region Segmental and somatic dysfunction of thoracic region Segmental and somatic... D iagnosis: 3 . P ain in left hip Comment: Ordered: Needle Insertion(S) Without Injection(S); 3 Or More Muscles ; 06/20/2024 15:51:00 CDT, Pain in left hip D iagnosis: 4 . S egmental and somatic dysfunction of lumbar region Comment: Ordered: Chiropractic Manipulative Tx Spinal 3-4 Regions [id number]; 06/20/2024 15:51:00 CDT, Radiculopathy, lumbar region Spinal stenosis, lumbar region without neurogenic claudication Segmental and somatic dysfunction of lumbar region Segmental and somatic dysfunction of thoracic region Segmental and somatic... D iagnosis: 5 . S egmental and somatic dysfunction of thoracic region Comment: Ordered: Chiropractic Manipulative Tx Spinal 3-4 Regions [id number]; 06/20/2024 15:51:00 CDT, Radiculopathy, lumbar region Spinal stenosis, lumbar region without neurogenic claudication Segmental and somatic dysfunction of lumbar region Segmental and somatic dysfunction of thoracic region Segmental and somatic... D iagnosis: 6 . S egmental and somatic dysfunction of cervical region Comment: Ordered: Chiropractic Manipulative Tx Spinal 3-4 Regions [id number]; 06/20/2024 15:51:00 CDT, Radiculopathy, lumbar region Spinal stenosis, lumbar region without neurogenic claudication Segmental and somatic dysfunction of lumbar region Segmental and somatic dysfunction of thoracic region Segmental and somatic... End of Orders Chiropractic Treatment Chiropractic Diversified Adjustments P safia to C/S A -P to T/S S jose posture to [place], SI and L/S A T Performed attended, prone, Ray Flexion/Distraction (12min) to L/S P rotocol II - 59 Therapeutic Modalities Dry Needling Addition: SCREENING: No contra-indications to dry needling (DN) were identified on screening. CONSENT: Patient provided verbal consent after discussion of DN technique, risk/benefits and potential side-effects. VERIFICATION: Prior to procedure, treatment site(s) verified and time out performed. PROCEDURE: P atient _ w ith dry needling performed to following structures that on physical exam?revealed taut bands, focal tenderness and/or hypertonicity felt to contribute to patient s chief complaints of pain and/or decreased function. The following areas were palpated and tender points located in the following locations: P roximal Semimembranosis and Semitendonosis (BL36)Gluteus minimus (M-BW-24)Gluteus medius (M-BW-24)Gluteus desiree (BL54)Piriformis (GB30). These areas were cleansed thoroughly with an alcohol swab and a d ry needle was inserted in each tender point. P t tolerated the procedure well. E BL 0/ [place] Used During this procedure: 4 n eedles inserted and 4 r emoved S elect # n eedles . 30 x 75 mm/?7 n eedles S election Size/ 7 n eedles . 30 x 30 mm) 36476 - Needle insertion(s) without i njection(s); m ultiple muscle(s) W o r W/O c onstant attended electrical stimulation (22706) x 8 m ins a nd soft-tissue mobilization (25052) of trigger points was performed a nd specific care t o avoid the lung field/intercostal regions and/or neurovascular structures. Needling was completed with sterile solid filament needles. Response to treatment: Patient tolerated the procedure well with E BL 0 and d isplayed no significant negative reaction, shortness of breath, bleeding, syncope or other complications post procedure. Patient independently teodoro from exam table and ambulated out of the clinic without complication. Pain control was acceptable to patient prior to departure from clinic. Response: G ood w/ no adverse reactions, aside from general soreness Safety: - [place] precautions and clean dry needling technique were utilized during this procedure. This includes hand hygiene, wearing of treatment gloves, preparing the patient s skin over treatment area with a lcohol wipe, and the use of sterile, solid filament, single patient use needles. - Specific techniques were used to avoid the lung mar and/or neurovascular structures. - Visual inspection after treatment revealed all needles were removed and disposed of in the sharps container. Post-Procedure Instructions: Post-procedure education handout provided. P atient instructed to expect mild to moderate muscle soreness for 24-48 hours and to take a hot bath/shower or use hot packs as well as stretch the involved area to minimize soreness. P atient instructed to seek immediate medical attention should they develop redness in the area, fever, chills, nausea, vomiting, or shortness of breath. Physician Signature //SIGNED// Dr. Binu Lin DC, [facility] Chiropractic Physician [address] [employer] Readiness [facility] Main Line DSN/Comm: [phone] / [phone] 06/20/24 15:50:22 Extracted from:Title: FTR - Low back and left hip pain Author: BINU LIN DC Date: 06/15/24 D iagnosis: 1 . R adiculopathy, lumbar region Comment: Ordered: Needle Insertion(S) Without Injection(S); 3 Or More Muscles ; 06/15/2024 15:46:00 TIRE LAYER, Radiculopathy, lumbar region ? Manual Therapy Tqs 1/> Regions Each 15 Minutes [id number]; 06/15/2024 15:46:00 TIRE LAYER, Radiculopathy, lumbar region Spinal stenosis, lumbar region without neurogenic claudication ? Chiropractic Manipulative Tx Spinal 3-4 Regions [id number]; 06/15/2024 15:46:00 TIRE LAYER, Radiculopathy, lumbar region Spinal stenosis, lumbar region without neurogenic claudication Pain in left hip Segmental and somatic dysfunction of lumbar region Segmental and somatic dysfunction of thoracic region Other status: Manual Therapy Tqs 1/> Regions Each 15 Minutes [id number]; 06/11/2024 14:10:00 TIRE LAYER, Radiculopathy, lumbar region Spinal stenosis, lumbar region without neurogenic claudication Pain in left hip Segmental and somatic dysfunction of lumbar region ( Completed) ? C hiropractic Manipulative Tx Spinal 3-4 Regions [id number]; 06/11/2024 14:10:00 TIRE LAYER, Radiculopathy, lumbar region Spinal stenosis, lumbar region without neurogenic claudication Pain in left hip Segmental and somatic dysfunction of lumbar region Segmental and somatic dysfunction of thoracic region (Completed) D iagnosis: 2 . S ryne stenosis, lumbar region without neurogenic claudication Comment: Ordered: Manual Therapy Tqs 1/> Regions Each 15 Minutes [id number]; 06/15/2024 15:46:00 TIRE LAYER, Radiculopathy, lumbar region Spinal stenosis, lumbar region without neurogenic claudication ? Chiropractic Manipulative Tx Spinal 3-4 Regions 47514; 06/15/2024 15:46:00 TIRE LAYER, Radiculopathy, lumbar region Spinal stenosis, lumbar region without neurogenic claudication Pain in left hip Segmental and somatic dysfunction of lumbar region Segmental and somatic dysfunction of thoracic region Other status: Manual Therapy Tqs 1/> Regions Each 15 Minutes 97474; 06/11/2024 14:10:00 TIRE LAYER, Radiculopathy, lumbar region Spinal stenosis, lumbar region without neurogenic claudication Pain in left hip Segmental and somatic dysfunction of lumbar region ( Completed) ? C hiropractic Manipulative Tx Spinal 3-4 Regions [id number]; 06/11/2024 14:10:00 TIRE LAYER, Radiculopathy, lumbar region Spinal stenosis, lumbar region without neurogenic claudication Pain in left hip Segmental and somatic dysfunction of lumbar region Segmental and somatic dysfunction of thoracic region (Completed) D iagnosis: 3 . P ain in left hip Comment: Ordered: Chiropractic Manipulative Tx Spinal 3-4 Regions [id number]; 06/15/2024 15:46:00 TIRE LAYER, Radiculopathy, lumbar region Spinal stenosis, lumbar region without neurogenic claudication Pain in left hip Segmental and somatic dysfunction of lumbar region Segmental and somatic dysfunction of thoracic region Other status: Manual Therapy Tqs 1/> Regions Each 15 Minutes [id number]; 06/11/2024 14:10:00 TIRE LAYER, Radiculopathy, lumbar region Spinal stenosis, lumbar region without neurogenic claudication Pain in left hip Segmental and somatic dysfunction of lumbar region ( Completed) ? C hiropractic Manipulative Tx Spinal 3-4 Regions 22189; 06/11/2024 14:10:00 TIRE LAYER, Radiculopathy, lumbar region Spinal stenosis, lumbar region without neurogenic claudication Pain in left hip Segmental and somatic dysfunction of lumbar region Segmental and somatic dysfunction of thoracic region (Completed) D iagnosis: 4 . S egmental and somatic dysfunction of lumbar region Comment: Ordered: Chiropractic Manipulative Tx Spinal 3-4 Regions 07195; 06/15/2024 15:46:00 TIRE LAYER, Radiculopathy, lumbar region Spinal stenosis, lumbar region without neurogenic claudication Pain in left hip Segmental and somatic dysfunction of lumbar region Segmental and somatic dysfunction of thoracic region Other status: Manual Therapy Tqs 1/> Regions Each 15 Minutes 52304; 06/11/2024 14:10:00 TIRE LAYER, Radiculopathy, lumbar region Spinal stenosis, lumbar region without neurogenic claudication Pain in left hip Segmental and somatic dysfunction of lumbar region ( Completed) ? C hiropractic Manipulative Tx Spinal 3-4 Regions 28587; 06/11/2024 14:10:00 TIRE LAYER, Radiculopathy, lumbar region Spinal stenosis, lumbar region without neurogenic claudication Pain in left hip Segmental and somatic dysfunction of lumbar region Segmental and somatic dysfunction of thoracic region (Completed) D iagnosis: 5 . S egmental and somatic dysfunction of thoracic region Comment: Ordered: Chiropractic Manipulative Tx Spinal 3-4 Regions 47307; 06/15/2024 15:46:00 TIRE LAYER, Radiculopathy, lumbar region Spinal stenosis, lumbar region without neurogenic claudication Pain in left hip Segmental and somatic dysfunction of lumbar region Segmental and somatic dysfunction of thoracic region Other status: Chiropractic Manipulative Tx Spinal 3-4 Regions 76036; 06/11/2024 14:10:00 TIRE LAYER, Radiculopathy, lumbar region Spinal stenosis, lumbar region without neurogenic claudication Pain in left hip Segmental and somatic dysfunction of lumbar region Segmental and somatic dysfunction of thoracic region ( Completed) End of Orders Chiropractic Treatment Chiropractic Diversified Adjustments P safia to C/S A -P to T/S S jose posture to [place], SI and L/S A T Performed attended, prone, Ray Flexion/Distraction (12min) to L/S - 59 Therapeutic Modalities Dry Needling Addition: SCREENING: No contra-indications to dry needling (DN) were identified on screening. CONSENT: Patient provided verbal consent after discussion of DN technique, risk/benefits and potential side-effects. VERIFICATION: Prior to procedure, treatment site(s) verified and time out performed. PROCEDURE: P atient P safia w ith dry needling performed to following structures that on physical exam r evealed taut bands, focal tenderness and/or hypertonicity felt to contribute to patient’s chief complaints of pain and/or decreased function. The following areas were palpated and tender points located in the following locations: G luteus minimus (M-BW-24)Gluteus desiree (BL54)Gluteus desiree (BL54)Piriformis (GB30)Proximal Semimembranosis and Semitendonosis (BL36). These areas were cleansed thoroughly with an alcohol swab and a d ry needle was inserted in each tender point. P t tolerated the procedure well. E BL 0/ [place] Used During this procedure: 1 0 n eedles inserted and 1 0 r emoved 5 n eedles . 30 x 60 mm/ 5 n eedles . 30 x 30 mm) 14565 - Needle insertion(s) without i njection(s); m ultiple muscle(s) W o r W/O c onstant attended electrical stimulation (44954) x & #160;8 m ins a nd soft-tissue mobilization (75477) of trigger points was performed a nd specific care t o avoid the lung field/intercostal regions and/or neurovascular structures. Needling was completed with sterile solid filament needles. Response to treatment: Patient tolerated the procedure well with E BL 0 and d isplayed no significant negative reaction, shortness of breath, bleeding, syncope or other complications post procedure. Patient independently teodoro from exam table and ambulated out of the clinic without complication. Pain control was acceptable to patient prior to departure from clinic. Response: G ood w/ no adverse reactions, aside from general soreness Safety: - [place] precautions and clean dry needling technique were utilized during this procedure. This includes hand hygiene, wearing of treatment gloves, preparing the patient s skin over treatment area with a lcohol wipe, and the use of sterile, solid filament, single patient use needles. - Specific techniques were used to avoid the lung mar and/or neurovascular structures. - Visual inspection after treatment revealed all needles were removed and disposed of in the sharps container. Post-Procedure Instructions: Post-procedure education handout provided. P atient instructed to expect mild to moderate muscle soreness for 24-48 hours and to take a hot bath/shower or use hot packs as well as stretch the involved area to minimize soreness. P atient instructed to seek immediate medical attention should they develop redness in the area, fever, chills, nausea, vomiting, or shortness of breath. Exercises Continue exercises as prescribed in treatment plan. Final Disposition Patient responded f air to care m arked by some decreased left hip pain s /p chiropractic treatment. Physician Signature //SIGNED// Dr. Binu Lin DC, [facility] Chiropractic Physician [address] [employer], [facility] DSN/Comm: [phone] / [phone] 06/15/24 15:43:36 Extracted from:Title: FTR - Low back and left hip pain Author: BINU LIN DC Date: 06/13/24 D iagnosis: 1 . R adiculopathy, lumbar region Comment: D iagnosis: 2 . S ryne stenosis, lumbar region without neurogenic claudication Comment: D iagnosis: 3 . P ain in left hip Comment: D iagnosis: 4 . S egmental and somatic dysfunction of lumbar region Comment: D iagnosis: 5 . S egmental and somatic dysfunction of thoracic region Comment: Chiropractic Treatment Chiropractic Diversified Adjustments A -P to T/S S jose posture to Ilium, SI and L/S A T Performed attended, prone, Ray Flexion/Distraction (12min) to L/S - 59 Therapeutic Modalities None Exercises Continue exercises as prescribed in treatment plan. Final Disposition Patient responded f air to care m arked by chery sorensen p alliation, temporary reductions in?pain s /p chiropractic treatment. Physician Signature //SIGNED// Dr. Binu Lin DC, [facility] Chiropractic Physician [facility] [employer] [facility] Main Line DSN/Comm: [phone] / [phone] 06/13/24 11:02:03 Extracted from:Title: FTR - Low back and hip pain Author: BINU LIN DC Date: 06/11/24 D iagnosis: 1 . R adiculopathy, lumbar region Comment: Ordered: Needle Insertion(S) Without Injection(S); 3 Or More Muscles ; 06/11/2024 15:58:00 TIRE LAYER, Radiculopathy, lumbar region Spinal stenosis, lumbar region without neurogenic claudication ? Manual Therapy Tqs 1/> Regions Each 15 Minutes 20029; 06/11/2024 15:58:00 TIRE LAYER, Radiculopathy, lumbar region Spinal stenosis, lumbar region without neurogenic claudication ? Chiropractic Manipulative Tx Spinal 3-4 Regions [id number]; 06/11/2024 15:58:00 TIRE LAYER, Radiculopathy, lumbar region Spinal stenosis, lumbar region without neurogenic claudication Segmental and somatic dysfunction of lumbar region Segmental and somatic dysfunction of thoracic region D iagnosis: 2 . S ryne stenosis, lumbar region without neurogenic claudication Comment: Ordered: Needle Insertion(S) Without Injection(S); 3 Or More Muscles ; 06/11/2024 15:58:00 TIRE LAYER, Radiculopathy, lumbar region Spinal stenosis, lumbar region without neurogenic claudication ? Manual Therapy Tqs 1/> Regions Each 15 Minutes [id number]; 06/11/2024 15:58:00 TIRE LAYER, Radiculopathy, lumbar region Spinal stenosis, lumbar region without neurogenic claudication ? Chiropractic Manipulative Tx Spinal 3-4 Regions [id number]; 06/11/2024 15:58:00 TIRE LAYER, Radiculopathy, lumbar region Spinal stenosis, lumbar region without neurogenic claudication Segmental and somatic dysfunction of lumbar region Segmental and somatic dysfunction of thoracic region D iagnosis: 3 . S egmental and somatic dysfunction of lumbar region Comment: Ordered: Chiropractic Manipulative Tx Spinal 3-4 Regions [id number]; 06/11/2024 15:58:00 TIRE LAYER, Radiculopathy, lumbar region Spinal stenosis, lumbar region without neurogenic claudication Segmental and somatic dysfunction of lumbar region Segmental and somatic dysfunction of thoracic region D iagnosis: 4 . S egmental and somatic dysfunction of thoracic region Comment: Ordered: Chiropractic Manipulative Tx Spinal 3-4 Regions [id number]; 06/11/2024 15:58:00 TIRE LAYER, Radiculopathy, lumbar region Spinal stenosis, lumbar region without neurogenic claudication Segmental and somatic dysfunction of lumbar region Segmental and somatic dysfunction of thoracic region End of Orders Chiropractic Treatment Chiropractic Diversified Adjustments P safia to C/S A -P to T/S S jose posture to Ilium, SI and L/S A T Performed attended, prone, Ray Flexion/Distraction (12min) to L/S Dry Needling Addition: SCREENING: No contra-indications to dry needling (DN) were identified on screening. CONSENT: Patient provided verbal consent after discussion of DN technique, risk/benefits and potential side-effects. VERIFICATION: Prior to procedure, treatment site(s) verified and time out performed. PROCEDURE: P atient P safia w ith dry needling performed to following structures that on physical exam r evealed taut bands, focal tenderness and/or hypertonicity felt to contribute to patient’s chief complaints of pain and/or decreased function. The following areas were palpated and tender points located in the following locations: G luteus medius (M-BW-24)Piriformis (GB30)Proximal Semimembranosis and Semitendonosis (BL36)ACU point/sGluteus desiree (BL54). These areas were cleansed thoroughly with an alcohol swab and a d ry needle was inserted in each tender point. P t tolerated the procedure well. E BL 0/ [place] Used During this procedure: 4 n eedles inserted and 4 r emoved S elect # n eedles . 30 x 60 mm 68794 - Needle insertion(s) without i njection(s); m ultiple muscle(s) w ithout c onstant attended electrical stimulation (02461) x 1 5 m ins a nd soft-tissue mobilization (92737) of trigger points was performed a nd specific care t o avoid the lung field/intercostal regions and/or neurovascular structures. Needling was completed with sterile solid filament needles. Response to treatment: Patient tolerated the procedure well with E BL 0 and d isplayed no significant negative reaction, shortness of breath, bleeding, syncope or other complications post procedure. Patient independently teodoro from exam table and ambulated out of the clinic without complication. Pain control was acceptable to patient prior to departure from clinic. Response: G ood w/ no adverse reactions, aside from general soreness Safety: - [place] precautions and clean dry needling technique were utilized during this procedure. This includes hand hygiene, wearing of treatment gloves, preparing the patient s skin over treatment area with a lcohol wipe, and the use of sterile, solid filament, single patient use needles. - Specific techniques were used to avoid the lung mar and/or neurovascular structures. - Visual inspection after treatment revealed all needles were removed and disposed of in the sharps container. Post-Procedure Instructions: Post-procedure education handout provided. P atient instructed to expect mild to moderate muscle soreness for 24-48 hours and to take a hot bath/shower or use hot packs as well as stretch the involved area to minimize soreness. P atient instructed to seek immediate medical attention should they develop redness in the area, fever, chills, nausea, vomiting, or shortness of breath. Exercises Continue exercises as prescribed in treatment plan. Final Disposition Patient responded f air t o initial treatment marked by d ecreased intensity of pain increased ROM. P atient i s p rogressing towards STG s /LTG s . Patient is to continue with home care and prescribed exercises. Follow u p as indicated by treatment plan and/or sooner if s/sx increase. Physician Signature / /SIGNED// Dr. Binu Lin DC, [facility] Chiropractic Physician 375 [employer] Readiness [facility] Main Line DSN/Comm: [phone] / [phone] 06/11/24 15:57:15 Extracted from:Title: SPEC - Low back pain Author: BINU LIN DC Date: 06/08/24 D iagnosis: 1 . S ryne stenosis, lumbar region without neurogenic claudication Comment: Ordered: Therapeutic Px 1/> Areas Each 15 Min Exercises [id number]; 06/08/2024 16:10:00 TIRE LAYER, Radiculopathy, lumbar region Pain in left hip Spinal stenosis, lumbar region without neurogenic claudication ? Manual Therapy Tqs 1/> Regions Each 15 Minutes [id number]; 06/08/2024 16:10:00 TIRE LAYER, Radiculopathy, lumbar region Spinal stenosis, lumbar region without neurogenic claudication ? Chiropractic Manipulative Tx Spinal 3-4 Regions [id number]; 06/08/2024 16:10:00 TIRE LAYER, Radiculopathy, lumbar region Pain in left hip Spinal stenosis, lumbar region without neurogenic claudication Segmental and somatic dysfunction of lumbar region Segmental and somatic dysfunction of thoracic region ? Office Visit Level 3 [facility] 79021; 06/08/2024 16:10:00 TIRE LAYER, Spinal stenosis, lumbar region without neurogenic claudication Radiculopathy, lumbar region Pain in left hip Segmental and somatic dysfunction of lumbar region Segmental and somatic dysfunction of thoracic region D iagnosis: 2 . R adiculopathy, lumbar region Comment: Ordered: Therapeutic Px 1/> Areas Each 15 Min Exercises 12517; 06/08/2024 16:10:00 TIRE LAYER, Radiculopathy, lumbar region Pain in left hip Spinal stenosis, lumbar region without neurogenic claudication ? Manual Therapy Tqs 1/> Regions Each 15 Minutes [id number]; 06/08/2024 16:10:00 TIRE LAYER, Radiculopathy, lumbar region Spinal stenosis, lumbar region without neurogenic claudication ? Chiropractic Manipulative Tx Spinal 3-4 Regions [id number]; 06/08/2024 16:10:00 TIRE LAYER, Radiculopathy, lumbar region Pain in left hip Spinal stenosis, lumbar region without neurogenic claudication Segmental and somatic dysfunction of lumbar region Segmental and somatic dysfunction of thoracic region ? Office Visit Level 3 [facility] 53168; 06/08/2024 16:10:00 TIRE LAYER, Spinal stenosis, lumbar region without neurogenic claudication Radiculopathy, lumbar region Pain in left hip Segmental and somatic dysfunction of lumbar region Segmental and somatic dysfunction of thoracic region D iagnosis: 3 . P ain in left hip Comment: Ordered: Therapeutic Px 1/> Areas Each 15 Min Exercises [id number]; 06/08/2024 16:10:00 TIRE LAYER, Radiculopathy, lumbar region Pain in left hip Spinal stenosis, lumbar region without neurogenic claudication ? Chiropractic Manipulative Tx Spinal 3-4 Regions 31910; 06/08/2024 16:10:00 TIRE LAYER, Radiculopathy, lumbar region Pain in left hip Spinal stenosis, lumbar region without neurogenic claudication Segmental and somatic dysfunction of lumbar region Segmental and somatic dysfunction of thoracic region ? Office Visit Level 3 [facility] 22343; 06/08/2024 16:10:00 TIRE LAYER, Spinal stenosis, lumbar region without neurogenic claudication Radiculopathy, lumbar region Pain in left hip Segmental and somatic dysfunction of lumbar region Segmental and somatic dysfunction of thoracic region D iagnosis: 4 . S egmental and somatic dysfunction of thoracic region Comment: Ordered: Chiropractic Manipulative Tx Spinal 3-4 Regions [id number]; 06/08/2024 16:10:00 TIRE LAYER, Radiculopathy, lumbar region Pain in left hip Spinal stenosis, lumbar region without neurogenic claudication Segmental and somatic dysfunction of lumbar region Segmental and somatic dysfunction of thoracic region ? Office Visit Level 3 [facility] 37073; 06/08/2024 16:10:00 TIRE LAYER, Spinal stenosis, lumbar region without neurogenic claudication Radiculopathy, lumbar region Pain in left hip Segmental and somatic dysfunction of lumbar region Segmental and somatic dysfunction of thoracic region D iagnosis: 5 . S egmental and somatic dysfunction of lumbar region Comment: Ordered: Chiropractic Manipulative Tx Spinal 3-4 Regions [id number]; 06/08/2024 16:10:00 TIRE LAYER, Radiculopathy, lumbar region Pain in left hip Spinal stenosis, lumbar region without neurogenic claudication Segmental and somatic dysfunction of lumbar region Segmental and somatic dysfunction of thoracic region ? Office Visit Level 3 [facility] 36159; 06/08/2024 16:10:00 TIRE LAYER, Spinal stenosis, lumbar region without neurogenic claudication Radiculopathy, lumbar region Pain in left hip Segmental and somatic dysfunction of lumbar region Segmental and somatic dysfunction of thoracic region End of Orders Chiropractic Treatment Chiropractic Diversified Adjustments A -P to T/S S jose posture to Ilium, SI and L/S A T Performed attended, prone, Ray Flexion/Distraction (12min) to L/S Therapeutic Modalities None FINAL DISPOSITION Patient Consent f or Examination and Treatment: Ronny Olmos Patient advised of the nature of chiropractic examination and treatment, the risks and benefits of chiropractic versus other procedures for t his condition, relative chance of each occurrence, exacerbation of current clinical s/sx, and alternative options including no treatment. Verbal informed consent was given by the patient to proceed with evaluation and treatment which may include but not limited to i nspection, palpation, percussion, compression, cross friction massage, trigger point therapy, electrical stimulation, d ry needling, heat, cold, s tretching, d iagnostic and therapeutic ultrasound, to regions of the t highs, hips and buttocks, back, neck, upper chest, and abdomen. Patient may expect total relief from pain, temporary relief from pain, increased pain, residual muscle soreness after the initial treatment which should resolve within a few days. If pain becomes intolerable patient to contact this clinic directly for acute care appointment and/or referral instruction. Advised patient consent may be revoked by them at any time. The patient verbalized and understanding of informed consent and verbalized consent to examination and treatment. Patient directs consent to be valid for all treatments rendered in this clinic. T sophia for patient questions was allotted and all questions were answered. 06/08/24 14:28:59 Chronic low back pain and left hip pain with n/t secondary to a large L5-S1 posterior central disc osteophyte complex resulting in moderate to severe central stenosis and e ffaces the bilateral S1 nerve roots and L4/L5 broad based disc bulge with posterior osteophyte complex and lateral recess stenosis. His prognosis is guarded given the protracted history, prior treatment, progressive r adicular pain patterns. He can manage with multiple i nterventions. I would like to begin a short course of Ray Flexion Distraction Decompression 2-3 times a week for 2-3 weeks. If this provides palliation I will continue with a more protracted treatment plan. Given his significant relief with Dry Needling, I w ill include this procedure in his plan. Physician Signature //SIGNED// Dr. Binu Lin DC, [facility] Chiropractic Physician 375 [employer] Readiness Natalie Sinha [place] [place] [facility] Main Line DSN/Comm: [phone] / [phone] 06/08/24 15:45:51 Extracted from:Title: [facility] LBP Author: ERIK GONCALVES, Date: 06/01/24 Low back pain Nurse visit injection without side effect. home stretches/RICE therapy. f/u PRN. The patient (is ) World [employer] Qualified. 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 Visit deployment related: N o Profile Reviewed MEB in progress: No IMR/ASIMS Status: [employer] Ordered: ketorolac(ketorolac), 15 mg, IntraMuscular, Solution, every 6 hr, Order Duration: 5 days, First Dose: 06/01/2024 13:00:00 TIRE LAYER, Stop Date: 06/06/2024 12:59:00 TIRE LAYER, 06/01/2024 12:02:00 TIRE LAYER Orders: ketorolac(Toradol 15 mg/mL injectable solution), 15 mg, IntraMuscular, every 6 hr, # 1 mL, 0 total refill(s), Acute, 06/02/2024, Pharmacy: [facility] [Not filled] Capt Lynn DO, [employer], Family Physician [facility] in [place], [place] [address] [facility]/[place] [address] Extracted from:Title: [facility] colitis work-up Author: ERIK GONCALVES DO Date: 03/13/24 Colitis C ontinue with GI work-up - discussed the med board process and what that would look like. - will call next week and discuss results of GI work-up with patient if GI does not first. The patient (is not ) World Wide Qualified. 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 Visit deployment related: N o Profile Reviewed MEB in progress: No IMR/ASIMS Status: [facility] Capt Lynn DO, [employer], Family Physician [facility] in [place], [place] [address] [address] Extracted from:Title: [facility] Sick call - F/u Feb 16 ER visit for colitis Author: FADUMO CASTRO MD Date: 02/21/24 1. 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 Continues to have unsteadiness and nausea, but no worsening since initial visit last week. Has messaged his GI provider on diagnosis but not heard back yet -unlikely to be IBD given symptoms ongoing since his CSP and hemorrhoid banding and per member no abnormalities at that time -would have thought member would be discharged on Ciprofloxacin and Flagyl, however for now to complete course of Augmentin, will review notes when available. -member mentioned upcoming TDY leaving on Tuesday for [place], although not advisable to travel given ongoing lightheadedness and unsteadiness and recent colitis, given he will be on [place] and major MTF [place] is there, he will have completed his antibiotics, l abs were stable, and symptoms aren't worsening, I don't believe he needs to cancel it but emphasized LOW threshold for medical follow up, and would advise canceling if symptoms worsen before Tuesday -additional 48h quarters placed -to f/u with PCM after return from TDY if fails to resolve, sooner as needed //SIGNED// FADUMO CASTRO Lt [employer], [facility], , FS Family Physician, [facility] Talib VALENTINE, [facility] cortez Mckeon DSN/Comm: [phone] / [phone] Orders: Ferritin Iron Studies Panel Extracted from:Title: [facility] Sick call - Abdominal pain and near-syncope x1 week s/p CSP Author: FADUMO CASTRO MD Date: 02/16/24 1. A bdominal pain PCM Perez 48 y.o. [employer] male seen for increased abdominal pain, fatigue and lightheadedness since Tuesday EGD, CSP, and hemorrhoid banding. Per member passed bands four days later, but per GI office this is normal, but has been having dark stool, although difficult to say if true melena or due to Iron supplement. Per member has had multuiple CSP in the past due to an episode of colitis and fatigue, but negative for Celiac and no dx of IBD. Was able to donate blood and last Hgb=13 in July, but last screen in January was 10.9 so referred to GI -on exam tired appearing, also +Wilson sign which member was unaware of until exam, although has had cholecystectomy. Has been having epigastric pain although no increase on palpation, and negative for RLQ pain, negative pain at [facility] point. Per member GI called him back Tuesday and recommended a CBC but had not told member where to get it so has not gotten it yet -although interestingly per member he has a diagnosis of hemochromatosis, his current labs all indicate iron deficiency anemia, however to follow up with PCM -given this has been ongoing for almost a week and member is well appearing, if labs are stable then member can follow up with GI specialist, but counseled if any evidence of dropping H/H, or leukocytosis suggestive of infection, he would have to be seen in ER, and if any worsening abdominal pain and near-syncope or unsteadiness he would also need to be seen in ER immediately for evaluation -added P epcid 20mg BID to current Nexium 40mg and the Sucralfate recently added by his GI specialist, per member -given hardcopy AF469 for 48h quarters, return to duty Feb 9 -dispo pending labs //SIGNED// FADUMO CASTRO, Col, [employer], [employer], FS Family Physician, [facility] Talib VALENTINE, [facility] cortez Mckeon DSN/Comm: [phone] / [phone] Extracted from:Title: Routine nondilated exam- MEDPROS Author: ESTEVAN HESS, OD Date: 02/07/24 1. K eratoconjunctivitis sicca -s/p PRK 2005 (pre-op ~-4.50 OU) -dry eye alleviated with Restasis -->has been on for ~ 5+ years per pt -cont Restasis BID Ordered: cycloSPORINE ophthalmic(Restasis 0.05% ophthalmic emulsion), 1 drop(s), Eye-Both, every 12 hr, # 60 EA, 11 total refill(s), Maintenance, 1 drop(s) Eye-Both every 12 hr, Pharmacy: [facility] [Not filled] 2. P resbyopia -New Spectacle rx dispensed today as seen below (Manifest=Final Rx), lens options recommended per pt ADLs MANIFEST REFRACTION: OD: - 0.50-0.72w313. . . . . . 20/15 OS: pl-0.78n449. . . . . . 2 0/15 Near Add: + 1.75 20/20 Computer Rx OD: +0.50-0.54s441 OS: +1.00-0.07i356 - Discussed 2 pair requirement (DOD). - Glasses ordered in SRTS. F OC computer, 5A reading -Measurements of anatomical facial characteristics and laboratory specifications were taken for glasses and final adjustment was made to the visual axes and anatomical topography of the patient at patients request upon delivery. 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 Form completed for patient to take to unit ([facility], etc) to update into their MEDPROS system. RTC first avail for DFE only (ok to dilate at screening), otherwise 1 year Ordered: cycloSPORINE ophthalmic(Restasis 0.05% ophthalmic emulsion), 1 drop(s), Eye-Both, every 12 hr, # 60 EA, 11 total refill(s), Maintenance, 1 drop(s) Eye-Both every 12 hr, Pharmacy: [facility] [Not filled] Diagnosis: 1 . K eratoconjunctivitis sicca Comment: Ordered: Restasis 0.05% ophthalmic emulsion; 1 drop(s), Eye-Both, every 12 hr, # 60 EA, 11 total refill(s), Maintenance, 1 drop(s) Eye-Both every 12 hr, Pharmacy: [facility] [Not filled] ? Ophthalmological Medical Xm&Eval Cherry New Pt 1/> Vst [id number]; 02/07/2024 14:58:00 CDT ? Fitting Spectacles Xcpt Aphakia Monofocal 73536; 02/07/2024 14:58:00 CDT ? Determination Refractive State [id number]; 02/07/2024 14:58:00 CDT D iagnosis: 2 . P resbyopia Comment: Ordered: Restasis 0.05% ophthalmic emulsion; 1 drop(s), Eye-Both, every 12 hr, # 60 EA, 11 total refill(s), Maintenance, 1 drop(s) Eye-Both every 12 hr, Pharmacy: [facility] [Not filled] ? Ophthalmological Medical Xm&Eval Compre New Pt 1/> Vst [id number]; 02/07/2024 14:58:00 CDT ? Fitting Spectacles Xcpt Aphakia Monofocal 62284; 02/07/2024 14:58:00 CDT ? Determination Refractive State [id number]; 02/07/2024 14:58:00 CDT End of Orders Extracted from:Title: [facility] MARVIN Author: ERIK GONCALVES, DO Date: 01/27/24 MARVIN - Iron deficiency anemia low HBG and low ferritin and iron. - will treat for MARVIN. - repeat labs in 3 months. The patient (is ) World Wide Qualified. 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 Visit deployment related: N o Profile Reviewed MEB in progress: No IMR/ASIMS Status: [X] Green (no action), Member aware. Orders: ferrous fumarate(ferrous fumarate 324 mg (106 mg elemental iron) oral tablet), 1 tab(s), Oral, every other day, # 90 tab(s), 0 total refill(s), Maintenance, 1 tab(s) Oral every other day, Pharmacy: [facility] [Not filled] Erik Goncalves DO, Capt, [place], Family Physician [facility] Program in [place], [place] [address] [place] [address] Extracted from:Title: [facility] microcytic anemia Author: ERIK GONCALVES DO Date: 01/11/24 Microcytic anemia Most likely the cause of the patients fatigue. - will order labs for microcytic anemia work-up. - will call with results and next steps. - Is on omeprazole 40mg that could be contributing to Iron deficiency anemia based on results of iron panel may need to be adjusted. The patient (is ) World Wide Qualified. 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 Visit deployment related: N o Profile Reviewed MEB in progress: No IMR/ASIMS Status: [employer] Ordered: Ferritin Haptoglobin [id number] Iron Studies Panel LDH [id number] Pathologist Smear Review Capt Lynn DO, [facility], Family Physician [facility] Residency Program in [place], [place] [address] [address] Extracted from:Title: [facility] Fatigue and LBP Author: GIO LIANG PA Date: 12/13/23 1. L ow back pain Est dx. No acute exacerbation of pain. No red flag sxs. Recent MRI with findings of L4-L5 and L5-S1 l oss of disc height and moderate lateral recess narrowing. Continue?with Pain. - NSAIDs P RN and F lexeril for severe pain. - D iscussed ER precautions - F/u for worsening pain, consider NSGY evaluation at that time. 2. 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 R eviewed PHQ-9, [id number]. P revious sleep study negative for TIANNA. Reassuring vital signs. Recommend completion of screening labs to evaluate for underlying etiology. Must be fasting for 10-12 hours prior to and must complete between 5373-5724. - If low testosterone, will repeat testosterone lab. If t wo low testosterone values a re confirmed can consider HRT - F/u w PCM to review lab results Ordered: CBC w/ Diff Comprehensive Metabolic Panel Hemoglobin A1c Lipid Panel Testosterone [id number] TSH w/ Reflex FT4 and Total T3 Vitamin D 25 Hydroxy Level Capt Gio Liang, SHAWN, PA-C [facility] ([facility]) [place] Please note that this dictation was completed with computer voice recognition software, G2Link. Quite often unanticipated grammatical, syntax, homophones, and other interpretive errors are inadvertently transcribed by the computer software. Please disregard these errors and excuse any errors that have escaped final proofreading. If are any questions regarding documentation, please contact this provider directly. Extracted from:Title: [facility] rectal pain. Author: ERIK GONCALVES DO Date: 12/05/23 Hemorrhoids Chronic reoccurring. Patient feels a fulness in the rectum and had benefit from hemorrhoid treatment in the past. HAs a family hx of BPH. will check PSA. If PSA normal and pain continues despite cream will refer to GI for colonoscopy. - f PSA elevated and symptoms persist will refer to urology for assessment. -f/u in 4 weeks to discuss outcomes. The patient (is ) World Wide Qualified. 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 Visit deployment related: N o Profile Reviewed MEB in progress: No IMR/ASIMS Status: [X] Green (no action), Member aware. Ordered: Prostate Specific Antigen Orders: lidocaine/phenylephrine/glycerin /petrolatum topical(Preparation H Rapid Relief With Lidocaine topical cream), 1 appl(s), Topical, BID, # 28 g, 1 total refill(s), Acute, 1 appl(s) Topical BID, Pharmacy: [facility] [Not filled] Erik Goncalves DO, Capt, [facility], Family Physician [facility] Res[facility] Program in [place] [address] [address] [place] [address] Extracted from:Title: [facility] GERD and sinus tachycardia. Author: ERIK GONCALVES DO Date: 11/04/23 GERD - Gastro-esophageal reflux disease Acute on chronic. Controlled. -will refill medication. The patient (is ) World Wide Qualified. 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 Visit deployment related: N o Profile Reviewed MEB in progress: No IMR/ASIMS Status: [employer]. Sinus tachycardia Chronic Controlled on Corlanor. will refill medication. Orders: baclofen(baclofen 10 mg oral tablet), 1 tab(s), Oral, Daily, # 90 tab(s), 0 total refill(s), Maintenance, 1 tab(s) Oral Daily, Pharmacy: [facility] [Not filled] ivabradine(Corlanor 5 mg oral tablet), 5 mg, Oral, Daily, 0 Refill(s), 1 tablet (5 mg total) daily, # 90 tab(s), 3 total refill(s), Maintenance, 5 mg Oral Daily,Instr:0 Refill(s), 1 tablet (5 mg total) daily, Pharmacy: [facility] [Not filled] esomeprazole(esomeprazole 40 mg oral delayed release capsule), 40 mg, Oral, Daily, 0 Refill(s), # 90 cap(s), 3 total refill(s), Maintenance, 40 mg Oral Daily,Instr:0 Refill(s), Pharmacy: [facility] [Not filled] Capt Lynn DO, [facility], Family Physician [facility] Program in [place], [place] [address] [place] [address] Extracted from:Title: Acute Optometry Office Visit Note Author: TASHA BATES, OD Date: 08/20/22 D iagnosis: 1 . V itreous degeneration, right eye Comment: P t presented today complaining of sudden onset of floaters. He denies any associated flashes of light. Pt was educated about PVD. Signs and symptoms of RD was also discussed at length with patient. RTC STAT if symptoms worsen. O rdered: Fundus Photography w/Interpretation + Report [id number]; 08/19/2022 08:44:00 EDT ? Ophthalmological [place] X[place] [id number]; 08/19/2022 08:44:00 EDT End of Orders Future Appointments Appointment Date: 07/27/2024 09:10:00 AM Scheduled Provider: BINU LIN DC Location: [id number] Appointment Type: CHIRO FTR 07/26/2024 [id number] Assessment and Plan Extracted from:Title : FTR - Low back pain Author: BINU LIN DC Date: 07/20/24 D iagnosis: 1 . S ryne stenosis, lumbar region without neurogenic claudication Comment: Ordered: Manual Therapy Tqs 1/> Regions Each 15 Minutes [id number]; 07/20/2024 09:03:00 CDT, 59, Spinal stenosis, lumbar region without neurogenic claudication Segmental and somatic dysfunction of lumbar region ? Chiropractic Manipulative Tx Spinal 3-4 Regions [id number]; 07/20/2024 09:03:00 CDT, Spinal stenosis, lumbar region without neurogenic claudication Segmental and somatic dysfunction of lumbar region Segmental and somatic dysfunction of thoracic region Segmental and somatic dysfunction of cervical region D iagnosis: 2 . S egmental and somatic dysfunction of lumbar region Comment: Ordered: Manual Therapy Tqs 1/> Regions Each 15 Minutes [id number]; 07/20/2024 09:03:00 CDT, 59, Spinal stenosis, lumbar region without neurogenic claudication Segmental and somatic dysfunction of lumbar region ? Chiropractic Manipulative Tx Spinal 3-4 Regions [id number]; 07/20/2024 09:03:00 CDT, Spinal stenosis, lumbar region without neurogenic claudication Segmental and somatic dysfunction of lumbar region Segmental and somatic dysfunction of thoracic region Segmental and somatic dysfunction of cervical region D iagnosis: 3 . S egmental and somatic dysfunction of thoracic region Comment: Ordered: Chiropractic Manipulative Tx Spinal 3-4 Regions [id number]; 07/20/2024 09:03:00 CDT, Spinal stenosis, lumbar region without neurogenic claudication Segmental and somatic dysfunction of lumbar region Segmental and somatic dysfunction of thoracic region Segmental and somatic dysfunction of cervical region D iagnosis: 4 . S egmental and somatic dysfunction of cervical region Comment: Ordered: Chiropractic Manipulative Tx Spinal 3-4 Regions [id number]; 07/20/2024 09:03:00 CDT, Spinal stenosis, lumbar region without neurogenic claudication Segmental and somatic dysfunction of lumbar region Segmental and somatic dysfunction of thoracic region Segmental and somatic dysfunction of cervical region End of Orders Chiropractic Treatment Chiropractic Diversified Adjustments P safia to C/S P safia T/S, S jose posture to [place], SI and L/S A T Performed attended, prone, Ray Flexion/Distraction (12min) to L/S, Protocol II, -59 Distinct separate procedure Therapeutic Modalities None Exercises Continue exercises as prescribed in treatment plan. Final Disposition Patient responded f air to care m arked by s ome mild p alliation of p ain with n o?hard radicualar s /sx, however, h is m oderate pain w ith radiation i nto the?left hip c ontinues s /p chiropractic treatment. Physician Signature //SIGNED// Dr. Binu Lin DC, [facility] Chiropractic Physician [address] [employer] [facility] DSN/Comm: [id number] / [phone] 07/20/24 09:01:04 Extracted from:Title: FTR - Low back pain Author: BINU LIN DC Date: 07/11/24 Diagnosis: P ain in left hip Comment: Ordered: Needle Insertion(S) Without Injection(S); 3 Or More Muscles ; 07/11/2024 08:55:00 CDT, Pain in left hip ? Manual Therapy Tqs 1/> Regions Each 15 Minutes [id number]; 07/11/2024 08:28:00 CDT, 59, Spinal stenosis, lumbar region without neurogenic claudication Radiculopathy, lumbar region Pain in left hip Segmental and somatic dysfunction of lumbar region ? Chiropractic Manipulative Tx Spinal 3-4 Regions [id number]; 07/11/2024 08:28:00 CDT, Spinal stenosis, lumbar region without neurogenic claudication Radiculopathy, lumbar region Pain in left hip Segmental and somatic dysfunction of lumbar region Segmental and somatic dysfunction of thoracic region Seg... D iagnosis: R adiculopathy, lumbar region Comment: Ordered: Manual Therapy Tqs 1/> Regions Each 15 Minutes [id number]; 07/11/2024 08:28:00 CDT, 59, Spinal stenosis, lumbar region without neurogenic claudication Radiculopathy, lumbar region Pain in left hip Segmental and somatic dysfunction of lumbar region ? Chiropractic Manipulative Tx Spinal 3-4 Regions [id number]; 07/11/2024 08:28:00 CDT, Spinal stenosis, lumbar region without neurogenic claudication Radiculopathy, lumbar region Pain in left hip Segmental and somatic dysfunction of lumbar region Segmental and somatic dysfunction of thoracic region Seg... D iagnosis: S egmental and somatic dysfunction of cervical region Comment: Ordered: Chiropractic Manipulative Tx Spinal 3-4 Regions [id number]; 07/11/2024 08:28:00 CDT, Spinal stenosis, lumbar region without neurogenic claudication Radiculopathy, lumbar region Pain in left hip Segmental and somatic dysfunction of lumbar region Segmental and somatic dysfunction of thoracic region Seg... D iagnosis: S egmental and somatic dysfunction of lumbar region Comment: Ordered: Manual Therapy Tqs 1/> Regions Each 15 Minutes [id number]; 07/11/2024 08:28:00 CDT, 59, Spinal stenosis, lumbar region without neurogenic claudication Radiculopathy, lumbar region Pain in left hip Segmental and somatic dysfunction of lumbar region ? Chiropractic Manipulative Tx Spinal 3-4 Regions [id number]; 07/11/2024 08:28:00 CDT, Spinal stenosis, lumbar region without neurogenic claudication Radiculopathy, lumbar region Pain in left hip Segmental and somatic dysfunction of lumbar region Segmental and somatic dysfunction of thoracic region Seg... D iagnosis: S egmental and somatic dysfunction of thoracic region Comment: Ordered: Chiropractic Manipulative Tx Spinal 3-4 Regions [id number]; 07/11/2024 08:28:00 CDT, Spinal stenosis, lumbar region without neurogenic claudication Radiculopathy, lumbar region Pain in left hip Segmental and somatic dysfunction of lumbar region Segmental and somatic dysfunction of thoracic region Seg... D iagnosis: S ryne stenosis, lumbar region without neurogenic claudication Comment: Ordered: Manual Therapy Tqs 1/> Regions Each 15 Minutes [id number]; 07/11/2024 08:28:00 CDT, 59, Spinal stenosis, lumbar region without neurogenic claudication Radiculopathy, lumbar region Pain in left hip Segmental and somatic dysfunction of lumbar region ? Chiropractic Manipulative Tx Spinal 3-4 Regions [id number]; 07/11/2024 08:28:00 CDT, Spinal stenosis, lumbar region without neurogenic claudication Radiculopathy, lumbar region Pain in left hip Segmental and somatic dysfunction of lumbar region Segmental and somatic dysfunction of thoracic region Seg... End of Orders Chiropractic Treatment Chiropractic Diversified Adjustments S upine to C/S P safia T/S, S jose posture to [place]lium, SI and L/S A T Performed attended, prone, Ray Flexion/Distraction (12min) to L/S, Protocol II, -59 Distinct separate procedure Dry Needling Addition: SCREENING: No contra-indications to dry needling (DN) were identified on screening. CONSENT: Patient provided verbal consent after discussion of DN technique, risk/benefits and potential side-effects. VERIFICATION: Prior to procedure, treatment site(s) verified and time out performed. PROCEDURE: P atient _ w ith dry needling performed to following structures that on physical exam?revealed taut bands, focal tenderness and/or hypertonicity felt to contribute to patient s chief complaints of pain and/or decreased function. The following areas were palpated and tender points located in the following locations: G luteus minimus (M-BW-24)Gluteus medius (M-BW-24)Proximal Semimembranosis and Semitendonosis (BL36)Piriformis (GB30)Gluteus desiree (BL54). These areas were cleansed thoroughly with an alcohol swab and a d ry needle was inserted in each tender point. P t tolerated the procedure well. E BL 0/ [place] Used During this procedure: 5 n eedles inserted and 5 r emoved S elect # n eedles . 30 x 60 mm/?5 n eedles ) [id number] - Needle insertion(s) without i njection(s); m ultiple muscle(s) W o r W/O c onstant attended electrical stimulation (91708) x 1 5 m ins a nd soft-tissue mobilization (35295) of trigger points was performed a nd specific care t o avoid the lung field/intercostal regions and/or neurovascular structures. Needling was completed with sterile solid filament needles. Response to treatment: Patient tolerated the procedure well with E BL 0 and d isplayed no significant negative reaction, shortness of breath, bleeding, syncope or other complications post procedure. Patient independently teodoro from exam table and ambulated out of the clinic without complication. Pain control was acceptable to patient prior to departure from clinic. Response: G ood w/ no adverse reactions, aside from general soreness Safety: - [place] precautions and clean dry needling technique were utilized during this procedure. This includes hand hygiene, wearing of treatment gloves, preparing the patient s skin over treatment area with a lcohol wipe, and the use of sterile, solid filament, single patient use needles. - Specific techniques were used to avoid the lung mar and/or neurovascular structures. - Visual inspection after treatment revealed all needles were removed and disposed of in the sharps container. Post-Procedure Instructions: Post-procedure education handout provided. P atient instructed to expect mild to moderate muscle soreness for 24-48 hours and to take a hot bath/shower or use hot packs as well as stretch the involved area to minimize soreness. P atient instructed to seek immediate medical attention should they develop redness in the area, fever, chills, nausea, vomiting, or shortness of breath. Exercises Continue exercises as prescribed in treatment plan. Final Disposition Patient responded w ell to care m arked by d ecreased intensity of pain increased ROM? s /p chiropractic treatment. Physician Signature //SIGNED// Dr. Binu Lin DC, [facility]K Chiropractic Physician [address] [facility] Main Line DSN/Comm: [id number] / [phone] 07/11/24 08:38:24 Extracted from:Title: [facility] MARVIN/OME Author: LORRAINE NAQVI PA Date: 06/22/24 1. I DA - Iron deficiency anemia 48 Years o ld M w/ PMH of MARVIN h ere for ED f/u. Pt visited ED yesterday for dizziness and fatigue. Reports Hgb was 11.5. Pt currently asx. Reports he stopped taking iron supplement in Feb 2024 d /t GI upset. Colonoscopy from Jan 2024 neg for GI malignancy. P t is having trouble scheduling appt t o continue care with GI d/t insurance changes. Pt requesting Hematology referral. - Hematology referral placed - ED precautions given - F/u once c onsult c ompleted Ordered: Referral Request 2.0 - DoD 2. O ME - Otitis media with effusion Pt reports recent AOM of L ear treated with Augmentin. States he has 4 days left of ABX. OME of R ear seen on exam. - Afrin 0.65% 2 spray bid x 3 days. Counseled on u se - ED precautions given - F/u prn Medications reconciled. Pt verbalized understanding and agreement. LORRAINE NAQVI, 1st Lt, PA-C [facility] Medicine [facility] [place] [address] Extracted from:Title: FTR - Low back pain Author: BINU LIN DC Date: 06/20/24 D iagnosis: 1 . S ryne stenosis, lumbar region without neurogenic claudication Comment: Ordered: Manual Therapy Tqs 1/> Regions Each 15 Minutes [id number]; 06/20/2024 15:51:00 CDT, 59, Radiculopathy, lumbar region Spinal stenosis, lumbar region without neurogenic claudication ? Chiropractic Manipulative Tx Spinal 3-4 Regions 31776; 06/20/2024 15:51:00 CDT, Radiculopathy, lumbar region Spinal stenosis, lumbar region without neurogenic claudication Segmental and somatic dysfunction of lumbar region Segmental and somatic dysfunction of thoracic region Segmental and somatic... D iagnosis: 2 . R adiculopathy, lumbar region Comment: Ordered: Manual Therapy Tqs 1/> Regions Each 15 Minutes [id number]; 06/20/2024 15:51:00 CDT, 59, Radiculopathy, lumbar region Spinal stenosis, lumbar region without neurogenic claudication ? Chiropractic Manipulative Tx Spinal 3-4 Regions [id number]; 06/20/2024 15:51:00 CDT, Radiculopathy, lumbar region Spinal stenosis, lumbar region without neurogenic claudication Segmental and somatic dysfunction of lumbar region Segmental and somatic dysfunction of thoracic region Segmental and somatic... D iagnosis: 3 . P ain in left hip Comment: Ordered: Needle Insertion(S) Without Injection(S); 3 Or More Muscles ; 06/20/2024 15:51:00 CDT, Pain in left hip D iagnosis: 4 . S egmental and somatic dysfunction of lumbar region Comment: Ordered: Chiropractic Manipulative Tx Spinal 3-4 Regions 40428; 06/20/2024 15:51:00 CDT, Radiculopathy, lumbar region Spinal stenosis, lumbar region without neurogenic claudication Segmental and somatic dysfunction of lumbar region Segmental and somatic dysfunction of thoracic region Segmental and somatic... D iagnosis: 5 . S egmental and somatic dysfunction of thoracic region Comment: Ordered: Chiropractic Manipulative Tx Spinal 3-4 Regions [id number]; 06/20/2024 15:51:00 CDT, Radiculopathy, lumbar region Spinal stenosis, lumbar region without neurogenic claudication Segmental and somatic dysfunction of lumbar region Segmental and somatic dysfunction of thoracic region Segmental and somatic... D iagnosis: 6 . S egmental and somatic dysfunction of cervical region Comment: Ordered: Chiropractic Manipulative Tx Spinal 3-4 Regions [id number]; 06/20/2024 15:51:00 CDT, Radiculopathy, lumbar region Spinal stenosis, lumbar region without neurogenic claudication Segmental and somatic dysfunction of lumbar region Segmental and somatic dysfunction of thoracic region Segmental and somatic... End of Orders Chiropractic Treatment Chiropractic Diversified Adjustments P safia to C/S A -P to T/S S jose posture to [place]lium, SI and L/S A T Performed attended, prone, Ray Flexion/Distraction (12min) to L/S P rotocol II - 59 Therapeutic Modalities Dry Needling Addition: SCREENING: No contra-indications to dry needling (DN) were identified on screening. CONSENT: Patient provided verbal consent after discussion of DN technique, risk/benefits and potential side-effects. VERIFICATION: Prior to procedure, treatment site(s) verified and time out performed. PROCEDURE: P atient _ w ith dry needling performed to following structures that on physical exam?revealed taut bands, focal tenderness and/or hypertonicity felt to contribute to patient s chief complaints of pain and/or decreased function. The following areas were palpated and tender points located in the following locations: P roximal Semimembranosis and Semitendonosis (BL36)Gluteus minimus (M-BW-24)Gluteus medius (M-BW-24)Gluteus desiree (BL54)Piriformis (GB30). These areas were cleansed thoroughly with an alcohol swab and a d ry needle was inserted in each tender point. P t tolerated the procedure well. E BL 0/ [place] Used During this procedure: 4 n eedles inserted and 4 r emoved S elect # n eedles . 30 x 75 mm/?7 n eedles S election Size/ 7 n eedles . 30 x 30 mm) 97098 - Needle insertion(s) without i njection(s); m ultiple muscle(s) W o r W/O c onstant attended electrical stimulation (73844) x 8 m ins a nd soft-tissue mobilization (46558) of trigger points was performed a nd specific care t o avoid the lung field/intercostal regions and/or neurovascular structures. Needling was completed with sterile solid filament needles. Response to treatment: Patient tolerated the procedure well with E BL 0 and d isplayed no significant negative reaction, shortness of breath, bleeding, syncope or other complications post procedure. Patient independently teodoro from exam table and ambulated out of the clinic without complication. Pain control was acceptable to patient prior to departure from clinic. Response: G ood w/ no adverse reactions, aside from general soreness Safety: - [place] precautions and clean dry needling technique were utilized during this procedure. This includes hand hygiene, wearing of treatment gloves, preparing the patient s skin over treatment area with a lcohol wipe, and the use of sterile, solid filament, single patient use needles. - Specific techniques were used to avoid the lung mar and/or neurovascular structures. - Visual inspection after treatment revealed all needles were removed and disposed of in the sharps container. Post-Procedure Instructions: Post-procedure education handout provided. P atient instructed to expect mild to moderate muscle soreness for 24-48 hours and to take a hot bath/shower or use hot packs as well as stretch the involved area to minimize soreness. P atient instructed to seek immediate medical attention should they develop redness in the area, fever, chills, nausea, vomiting, or shortness of breath. Physician Signature //SIGNED// Dr. Binu Lin DC, [facility]K Chiropractic Physician [address] [employer] [address] [employer] Natalie Sinha [facility] Main Line DSN/Comm: [phone] / [phone] 06/20/24 15:50:22 Extracted from:Title: FTR - Low back and left hip pain Author: BINU LIN DC Date: 06/15/24 D iagnosis: 1 . R adiculopathy, lumbar region Comment: Ordered: Needle Insertion(S) Without Injection(S); 3 Or More Muscles ; 06/15/2024 15:46:00 TIRE LAYER, Radiculopathy, lumbar region ? Manual Therapy Tqs 1/> Regions Each 15 Minutes 50956; 06/15/2024 15:46:00 TIRE LAYER, Radiculopathy, lumbar region Spinal stenosis, lumbar region without neurogenic claudication ? Chiropractic Manipulative Tx Spinal 3-4 Regions 19954; 06/15/2024 15:46:00 TIRE LAYER, Radiculopathy, lumbar region Spinal stenosis, lumbar region without neurogenic claudication Pain in left hip Segmental and somatic dysfunction of lumbar region Segmental and somatic dysfunction of thoracic region Other status: Manual Therapy Tqs 1/> Regions Each 15 Minutes 70746; 06/11/2024 14:10:00 TIRE LAYER, Radiculopathy, lumbar region Spinal stenosis, lumbar region without neurogenic claudication Pain in left hip Segmental and somatic dysfunction of lumbar region ( Completed) ? C hiropractic Manipulative Tx Spinal 3-4 Regions [id number]; 06/11/2024 14:10:00 TIRE LAYER, Radiculopathy, lumbar region Spinal stenosis, lumbar region without neurogenic claudication Pain in left hip Segmental and somatic dysfunction of lumbar region Segmental and somatic dysfunction of thoracic region (Completed) D iagnosis: 2 . S ryne stenosis, lumbar region without neurogenic claudication Comment: Ordered: Manual Therapy Tqs 1/> Regions Each 15 Minutes [id number]; 06/15/2024 15:46:00 TIRE LAYER, Radiculopathy, lumbar region Spinal stenosis, lumbar region without neurogenic claudication ? Chiropractic Manipulative Tx Spinal 3-4 Regions [id number]; 06/15/2024 15:46:00 TIRE LAYER, Radiculopathy, lumbar region Spinal stenosis, lumbar region without neurogenic claudication Pain in left hip Segmental and somatic dysfunction of lumbar region Segmental and somatic dysfunction of thoracic region Other status: Manual Therapy Tqs 1/> Regions Each 15 Minutes [id number]; 06/11/2024 14:10:00 TIRE LAYER, Radiculopathy, lumbar region Spinal stenosis, lumbar region without neurogenic claudication Pain in left hip Segmental and somatic dysfunction of lumbar region ( Completed) ? C hiropractic Manipulative Tx Spinal 3-4 Regions [id number]; 06/11/2024 14:10:00 TIRE LAYER, Radiculopathy, lumbar region Spinal stenosis, lumbar region without neurogenic claudication Pain in left hip Segmental and somatic dysfunction of lumbar region Segmental and somatic dysfunction of thoracic region (Completed) D iagnosis: 3 . P ain in left hip Comment: Ordered: Chiropractic Manipulative Tx Spinal 3-4 Regions [id number]; 06/15/2024 15:46:00 TIRE LAYER, Radiculopathy, lumbar region Spinal stenosis, lumbar region without neurogenic claudication Pain in left hip Segmental and somatic dysfunction of lumbar region Segmental and somatic dysfunction of thoracic region Other status: Manual Therapy Tqs 1/> Regions Each 15 Minutes [id number]; 06/11/2024 14:10:00 TIRE LAYER, Radiculopathy, lumbar region Spinal stenosis, lumbar region without neurogenic claudication Pain in left hip Segmental and somatic dysfunction of lumbar region ( Completed) ? C hiropractic Manipulative Tx Spinal 3-4 Regions [id number]; 06/11/2024 14:10:00 TIRE LAYER, Radiculopathy, lumbar region Spinal stenosis, lumbar region without neurogenic claudication Pain in left hip Segmental and somatic dysfunction of lumbar region Segmental and somatic dysfunction of thoracic region (Completed) D iagnosis: 4 . S egmental and somatic dysfunction of lumbar region Comment: Ordered: Chiropractic Manipulative Tx Spinal 3-4 Regions [id number]; 06/15/2024 15:46:00 TIRE LAYER, Radiculopathy, lumbar region Spinal stenosis, lumbar region without neurogenic claudication Pain in left hip Segmental and somatic dysfunction of lumbar region Segmental and somatic dysfunction of thoracic region Other status: Manual Therapy Tqs 1/> Regions Each 15 Minutes [id number]; 06/11/2024 14:10:00 TIRE LAYER, Radiculopathy, lumbar region Spinal stenosis, lumbar region without neurogenic claudication Pain in left hip Segmental and somatic dysfunction of lumbar region ( Completed) ? C hiropractic Manipulative Tx Spinal 3-4 Regions [id number]; 06/11/2024 14:10:00 TIRE LAYER, Radiculopathy, lumbar region Spinal stenosis, lumbar region without neurogenic claudication Pain in left hip Segmental and somatic dysfunction of lumbar region Segmental and somatic dysfunction of thoracic region (Completed) D iagnosis: 5 . S egmental and somatic dysfunction of thoracic region Comment: Ordered: Chiropractic Manipulative Tx Spinal 3-4 Regions [id number]; 06/15/2024 15:46:00 TIRE LAYER, Radiculopathy, lumbar region Spinal stenosis, lumbar region without neurogenic claudication Pain in left hip Segmental and somatic dysfunction of lumbar region Segmental and somatic dysfunction of thoracic region Other status: Chiropractic Manipulative Tx Spinal 3-4 Regions [id number]; 06/11/2024 14:10:00 TIRE LAYER, Radiculopathy, lumbar region Spinal stenosis, lumbar region without neurogenic claudication Pain in left hip Segmental and somatic dysfunction of lumbar region Segmental and somatic dysfunction of thoracic region ( Completed) End of Orders Chiropractic Treatment Chiropractic Diversified Adjustments P safia to C/S A -P to T/S S jose posture to [place]lium, SI and L/S A T Performed attended, prone, Ray Flexion/Distraction (12min) to L/S - 59 Therapeutic Modalities Dry Needling Addition: SCREENING: No contra-indications to dry needling (DN) were identified on screening. CONSENT: Patient provided verbal consent after discussion of DN technique, risk/benefits and potential side-effects. VERIFICATION: Prior to procedure, treatment site(s) verified and time out performed. PROCEDURE: P atient P safia w ith dry needling performed to following structures that on physical exam r evealed taut bands, focal tenderness and/or hypertonicity felt to contribute to patient’s chief complaints of pain and/or decreased function. The following areas were palpated and tender points located in the following locations: G luteus minimus (M-BW-24)Gluteus desiree (BL54)Gluteus desiree (BL54)Piriformis (GB30)Proximal Semimembranosis and Semitendonosis (BL36). These areas were cleansed thoroughly with an alcohol swab and a d ry needle was inserted in each tender point. P t tolerated the procedure well. E BL 0/ [place] Used During this procedure: 1 0 n eedles inserted and 1 0 r emoved 5 n eedles . 30 x 60 mm/ 5 n eedles . 30 x 30 mm) 14692 - Needle insertion(s) without i njection(s); m ultiple muscle(s) W o r W/O c onstant attended electrical stimulation (21028) x & #160;8 m ins a nd soft-tissue mobilization (99513) of trigger points was performed a nd specific care t o avoid the lung field/intercostal regions and/or neurovascular structures. Needling was completed with sterile solid filament needles. Response to treatment: Patient tolerated the procedure well with E BL 0 and d isplayed no significant negative reaction, shortness of breath, bleeding, syncope or other complications post procedure. Patient independently teodoro from exam table and ambulated out of the clinic without complication. Pain control was acceptable to patient prior to departure from clinic. Response: G ood w/ no adverse reactions, aside from general soreness Safety: - Stafford precautions and clean dry needling technique were utilized during this procedure. This includes hand hygiene, wearing of treatment gloves, preparing the patient s skin over treatment area with a lcohol wipe, and the use of sterile, solid filament, single patient use needles. - Specific techniques were used to avoid the lung mar and/or neurovascular structures. - Visual inspection after treatment revealed all needles were removed and disposed of in the sharps container. Post-Procedure Instructions: Post-procedure education handout provided. P atient instructed to expect mild to moderate muscle soreness for 24-48 hours and to take a hot bath/shower or use hot packs as well as stretch the involved area to minimize soreness. P atient instructed to seek immediate medical attention should they develop redness in the area, fever, chills, nausea, vomiting, or shortness of breath. Exercises Continue exercises as prescribed in treatment plan. Final Disposition Patient responded f air to care m arked by some decreased left hip pain s /p chiropractic treatment. Physician Signature //SIGNED// Dr. Bniu Lin DC, [facility]K Chiropractic Physician [facility] Main Line DSN/Comm: [id number] / [phone] 06/15/24 15:43:36 Extracted from:Title: FTR - Low back and left hip pain Author: BINU LIN DC Date: 06/13/24 D iagnosis: 1 . R adiculopathy, lumbar region Comment: D iagnosis: 2 . S ryne stenosis, lumbar region without neurogenic claudication Comment: D iagnosis: 3 . P ain in left hip Comment: D iagnosis: 4 . S egmental and somatic dysfunction of lumbar region Comment: D iagnosis: 5 . S egmental and somatic dysfunction of thoracic region Comment: Chiropractic Treatment Chiropractic Diversified Adjustments A -P to T/S S jose posture to [place]lium, SI and L/S A T Performed attended, prone, Ray Flexion/Distraction (12min) to L/S - 59 Therapeutic Modalities None Exercises Continue exercises as prescribed in treatment plan. Final Disposition Patient responded f air to care m arked by chery sorensen p alliation, temporary reductions in?pain s /p chiropractic treatment. Physician Signature //SIGNED// Dr. Binu Lin DC, [facility]K Chiropractic Physician [address] [employer] Natalie Sinha [facility] Main Line DSN/Comm: [id number] / [phone] 06/13/24 11:02:03 Extracted from:Title: FTR - Low back and hip pain Author: BINU LIN DC Date: 06/11/24 D iagnosis: 1 . R adiculopathy, lumbar region Comment: Ordered: Needle Insertion(S) Without Injection(S); 3 Or More Muscles ; 06/11/2024 15:58:00 TIRE LAYER, Radiculopathy, lumbar region Spinal stenosis, lumbar region without neurogenic claudication ? Manual Therapy Tqs 1/> Regions Each 15 Minutes [id number]; 06/11/2024 15:58:00 TIRE LAYER, Radiculopathy, lumbar region Spinal stenosis, lumbar region without neurogenic claudication ? Chiropractic Manipulative Tx Spinal 3-4 Regions [id number]; 06/11/2024 15:58:00 TIRE LAYER, Radiculopathy, lumbar region Spinal stenosis, lumbar region without neurogenic claudication Segmental and somatic dysfunction of lumbar region Segmental and somatic dysfunction of thoracic region D iagnosis: 2 . S ryne stenosis, lumbar region without neurogenic claudication Comment: Ordered: Needle Insertion(S) Without Injection(S); 3 Or More Muscles ; 06/11/2024 15:58:00 TIRE LAYER, Radiculopathy, lumbar region Spinal stenosis, lumbar region without neurogenic claudication ? Manual Therapy Tqs 1/> Regions Each 15 Minutes [id number]; 06/11/2024 15:58:00 TIRE LAYER, Radiculopathy, lumbar region Spinal stenosis, lumbar region without neurogenic claudication ? Chiropractic Manipulative Tx Spinal 3-4 Regions 56486; 06/11/2024 15:58:00 TIRE LAYER, Radiculopathy, lumbar region Spinal stenosis, lumbar region without neurogenic claudication Segmental and somatic dysfunction of lumbar region Segmental and somatic dysfunction of thoracic region D iagnosis: 3 . S egmental and somatic dysfunction of lumbar region Comment: Ordered: Chiropractic Manipulative Tx Spinal 3-4 Regions [id number]; 06/11/2024 15:58:00 TIRE LAYER, Radiculopathy, lumbar region Spinal stenosis, lumbar region without neurogenic claudication Segmental and somatic dysfunction of lumbar region Segmental and somatic dysfunction of thoracic region D iagnosis: 4 . S egmental and somatic dysfunction of thoracic region Comment: Ordered: Chiropractic Manipulative Tx Spinal 3-4 Regions 23824; 06/11/2024 15:58:00 TIRE LAYER, Radiculopathy, lumbar region Spinal stenosis, lumbar region without neurogenic claudication Segmental and somatic dysfunction of lumbar region Segmental and somatic dysfunction of thoracic region End of Orders Chiropractic Treatment Chiropractic Diversified Adjustments P safia to C/S A -P to T/S S jose posture to [place], SI and L/S A T Performed attended, prone, Ray Flexion/Distraction (12min) to L/S Dry Needling Addition: SCREENING: No contra-indications to dry needling (DN) were identified on screening. CONSENT: Patient provided verbal consent after discussion of DN technique, risk/benefits and potential side-effects. VERIFICATION: Prior to procedure, treatment site(s) verified and time out performed. PROCEDURE: P atient P safia w ith dry needling performed to following structures that on physical exam r evealed taut bands, focal tenderness and/or hypertonicity felt to contribute to patient’s chief complaints of pain and/or decreased function. The following areas were palpated and tender points located in the following locations: G luteus medius (M-BW-24)Piriformis (GB30)Proximal Semimembranosis and Semitendonosis (BL36)ACU point/sGluteus desiree (BL54). These areas were cleansed thoroughly with an alcohol swab and a d ry needle was inserted in each tender point. P t tolerated the procedure well. E BL 0/ [place] Used During this procedure: 4 n eedles inserted and 4 r emoved S elect # n eedles . 30 x 60 mm 72753 - Needle insertion(s) without i njection(s); m ultiple muscle(s) w ithout c onstant attended electrical stimulation (97902) x 1 5 m ins a nd soft-tissue mobilization (56070) of trigger points was performed a nd specific care t o avoid the lung field/intercostal regions and/or neurovascular structures. Needling was completed with sterile solid filament needles. Response to treatment: Patient tolerated the procedure well with E BL 0 and d isplayed no significant negative reaction, shortness of breath, bleeding, syncope or other complications post procedure. Patient independently teodoro from exam table and ambulated out of the clinic without complication. Pain control was acceptable to patient prior to departure from clinic. Response: G ood w/ no adverse reactions, aside from general soreness Safety: - [place] precautions and clean dry needling technique were utilized during this procedure. This includes hand hygiene, wearing of treatment gloves, preparing the patient s skin over treatment area with a lcohol wipe, and the use of sterile, solid filament, single patient use needles. - Specific techniques were used to avoid the lung mar and/or neurovascular structures. - Visual inspection after treatment revealed all needles were removed and disposed of in the sharps container. Post-Procedure Instructions: Post-procedure education handout provided. P atient instructed to expect mild to moderate muscle soreness for 24-48 hours and to take a hot bath/shower or use hot packs as well as stretch the involved area to minimize soreness. P atient instructed to seek immediate medical attention should they develop redness in the area, fever, chills, nausea, vomiting, or shortness of breath. Exercises Continue exercises as prescribed in treatment plan. Final Disposition Patient responded f air t o initial treatment marked by d ecreased intensity of pain increased ROM. P atient i s p rogressing towards STG s /LTG s . Patient is to continue with home care and prescribed exercises. Follow u p as indicated by treatment plan and/or sooner if s/sx increase. Physician Signature / /SIGNED// Dr. Binu Lin DC, [facility]K Chiropractic Physician [address] [employer] Natalie Sinha [facility] Main Line DSN/Comm: [phone] / [phone] 06/11/24 15:57:15 Extracted from:Title: SPEC - Low back pain Author: BINU LIN DC Date: 06/08/24 D iagnosis: 1 . S yrne stenosis, lumbar region without neurogenic claudication Comment: Ordered: Therapeutic Px 1/> Areas Each 15 Min Exercises 42511; 06/08/2024 16:10:00 TIRE LAYER, Radiculopathy, lumbar region Pain in left hip Spinal stenosis, lumbar region without neurogenic claudication ? Manual Therapy Tqs 1/> Regions Each 15 Minutes 92366; 06/08/2024 16:10:00 TIRE LAYER, Radiculopathy, lumbar region Spinal stenosis, lumbar region without neurogenic claudication ? Chiropractic Manipulative Tx Spinal 3-4 Regions 71548; 06/08/2024 16:10:00 TIRE LAYER, Radiculopathy, lumbar region Pain in left hip Spinal stenosis, lumbar region without neurogenic claudication Segmental and somatic dysfunction of lumbar region Segmental and somatic dysfunction of thoracic region ? Office Visit Level 3 [facility] [id number]; 06/08/2024 16:10:00 TIRE LAYER, Spinal stenosis, lumbar region without neurogenic claudication Radiculopathy, lumbar region Pain in left hip Segmental and somatic dysfunction of lumbar region Segmental and somatic dysfunction of thoracic region D iagnosis: 2 . R adiculopathy, lumbar region Comment: Ordered: Therapeutic Px 1/> Areas Each 15 Min Exercises 51279; 06/08/2024 16:10:00 TIRE LAYER, Radiculopathy, lumbar region Pain in left hip Spinal stenosis, lumbar region without neurogenic claudication ? Manual Therapy Tqs 1/> Regions Each 15 Minutes [id number]; 06/08/2024 16:10:00 TIRE LAYER, Radiculopathy, lumbar region Spinal stenosis, lumbar region without neurogenic claudication ? Chiropractic Manipulative Tx Spinal 3-4 Regions 45560; 06/08/2024 16:10:00 TIRE LAYER, Radiculopathy, lumbar region Pain in left hip Spinal stenosis, lumbar region without neurogenic claudication Segmental and somatic dysfunction of lumbar region Segmental and somatic dysfunction of thoracic region ? Office Visit Level 3 [facility] 37853; 06/08/2024 16:10:00 TIRE LAYER, Spinal stenosis, lumbar region without neurogenic claudication Radiculopathy, lumbar region Pain in left hip Segmental and somatic dysfunction of lumbar region Segmental and somatic dysfunction of thoracic region D iagnosis: 3 . P ain in left hip Comment: Ordered: Therapeutic Px 1/> Areas Each 15 Min Exercises 27577; 06/08/2024 16:10:00 TIRE LAYER, Radiculopathy, lumbar region Pain in left hip Spinal stenosis, lumbar region without neurogenic claudication ? Chiropractic Manipulative Tx Spinal 3-4 Regions 76435; 06/08/2024 16:10:00 TIRE LAYER, Radiculopathy, lumbar region Pain in left hip Spinal stenosis, lumbar region without neurogenic claudication Segmental and somatic dysfunction of lumbar region Segmental and somatic dysfunction of thoracic region ? Office Visit Level 3 [facility] [id number]; 06/08/2024 16:10:00 TIRE LAYER, Spinal stenosis, lumbar region without neurogenic claudication Radiculopathy, lumbar region Pain in left hip Segmental and somatic dysfunction of lumbar region Segmental and somatic dysfunction of thoracic region D iagnosis: 4 . S egmental and somatic dysfunction of thoracic region Comment: Ordered: Chiropractic Manipulative Tx Spinal 3-4 Regions 41088; 06/08/2024 16:10:00 TIRE LAYER, Radiculopathy, lumbar region Pain in left hip Spinal stenosis, lumbar region without neurogenic claudication Segmental and somatic dysfunction of lumbar region Segmental and somatic dysfunction of thoracic region ? Office Visit Level 3 [facility] 55355; 06/08/2024 16:10:00 TIRE LAYER, Spinal stenosis, lumbar region without neurogenic claudication Radiculopathy, lumbar region Pain in left hip Segmental and somatic dysfunction of lumbar region Segmental and somatic dysfunction of thoracic region D iagnosis: 5 . S egmental and somatic dysfunction of lumbar region Comment: Ordered: Chiropractic Manipulative Tx Spinal 3-4 Regions [id number]; 06/08/2024 16:10:00 TIRE LAYER, Radiculopathy, lumbar region Pain in left hip Spinal stenosis, lumbar region without neurogenic claudication Segmental and somatic dysfunction of lumbar region Segmental and somatic dysfunction of thoracic region ? Office Visit Level 3 [facility] 04989; 06/08/2024 16:10:00 TIRE LAYER, Spinal stenosis, lumbar region without neurogenic claudication Radiculopathy, lumbar region Pain in left hip Segmental and somatic dysfunction of lumbar region Segmental and somatic dysfunction of thoracic region End of Orders Chiropractic Treatment Chiropractic Diversified Adjustments A -P to T/S S jose posture to [place], SI and L/S A T Performed attended, prone, Ray Flexion/Distraction (12min) to L/S Therapeutic Modalities None FINAL DISPOSITION Patient Consent f or Examination and Treatment: Ronny Olmos Patient advised of the nature of chiropractic examination and treatment, the risks and benefits of chiropractic versus other procedures for t his condition, relative chance of each occurrence, exacerbation of current clinical s/sx, and alternative options including no treatment. Verbal informed consent was given by the patient to proceed with evaluation and treatment which may include but not limited to i nspection, palpation, percussion, compression, cross friction massage, trigger point therapy, electrical stimulation, d ry needling, heat, cold, s tretching, d iagnostic and therapeutic ultrasound, to regions of the t highs, hips and buttocks, back, neck, upper chest, and abdomen. Patient may expect total relief from pain, temporary relief from pain, increased pain, residual muscle soreness after the initial treatment which should resolve within a few days. If pain becomes intolerable patient to contact this clinic directly for acute care appointment and/or referral instruction. Advised patient consent may be revoked by them at any time. The patient verbalized and understanding of informed consent and verbalized consent to examination and treatment. Patient directs consent to be valid for all treatments rendered in this clinic. T sophia for patient questions was allotted and all questions were answered. 06/08/24 14:28:59 Chronic low back pain and left hip pain with n/t secondary to a large L5-S1 posterior central disc osteophyte complex resulting in moderate to severe central stenosis and e ffaces the bilateral S1 nerve roots and L4/L5 broad based disc bulge with posterior osteophyte complex and lateral recess stenosis. His prognosis is guarded given the protracted history, prior treatment, progressive r adicular pain patterns. He can manage with multiple i nterventions. I would like to begin a short course of Ray Flexion Distraction Decompression 2-3 times a week for 2-3 weeks. If this provides palliation I will continue with a more protracted treatment plan. Given his significant relief with Dry Needling, I w ill include this procedure in his plan. Physician Signature //SIGNED// Dr. Binu Lin, CARL, [facility]K Chiropractic Physician 375 [employer] Medical Readiness [facility] DSN/Comm: [id number] / [phone] 06/08/24 15:45:51 Extracted from:Title: [facility] LBP Author: ERIK GONCALVES DO Date: 06/01/24 Low back pain Nurse visit injection without side effect. home stretches/RICE therapy. f/u PRN. The patient (is ) [employer] Qual[employer]. 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 Visit deployment related: N o Profile Reviewed MEB in progress: No IMR/ASIMS Status: [employer] Ordered: ketorolac(ketorolac), 15 mg, IntraMuscular, Solution, every 6 hr, Order Duration: 5 days, First Dose: 06/01/2024 13:00:00 TIRE LAYER, Stop Date: 06/06/2024 12:59:00 TIRE LAYER, 06/01/2024 12:02:00 TIRE LAYER Orders: ketorolac(Toradol 15 mg/mL injectable solution), 15 mg, IntraMuscular, every 6 hr, # 1 mL, 0 total refill(s), Acute, 06/02/2024, Pharmacy: [facility] [Not filled] Capt Lynn DO, [employer], Family Physician [facility]urn[employer] [facility] in [address] [place] [place] [phone] Extracted from:Title: [facility] colitis work-up Author: ERIK GONCALVES DO Date: 03/13/24 Colitis C ontinue with GI work-up - discussed the med board process and what that would look like. - will call next week and discuss results of GI work-up with patient if GI does not first. The patient (is not ) World [employer] Qualified. 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 Visit deployment related: N o Profile Reviewed MEB in progress: No IMR/ASIMS Status: [facility] Capt Lynn DO, [employer], Family Physician [facility] [facility] in [address]/[place] [address] Extracted from:Title: [facility] Sick call - F/u Feb 16 ER visit for colitis Author: FADUMO CASTRO MD Date: 02/21/24 1. 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 Continues to have unsteadiness and nausea, but no worsening since initial visit last week. Has messaged his GI provider on diagnosis but not heard back yet -unlikely to be IBD given symptoms ongoing since his CSP and hemorrhoid banding and per member no abnormalities at that time -would have thought member would be discharged on Ciprofloxacin and Flagyl, however for now to complete course of Augmentin, will review notes when available. -member mentioned upcoming TDY leaving on Tuesday for [place], although not advisable to travel given ongoing lightheadedness and unsteadiness and recent colitis, given he will be on [place] and major MTF [place] is there, he will have completed his antibiotics, l abs were stable, and symptoms aren't worsening, I don't believe he needs to cancel it but emphasized LOW threshold for medical follow up, and would advise canceling if symptoms worsen before Tuesday -additional 48h quarters placed -to f/u with PCM after return from TDY if fails to resolve, sooner as needed //SIGNED// FADUMO CASTRO [employer], [employer], MC, FS Family Physician, [facility] Talib VALENTINE, [facility] cortez Mckeon DSN/Comm: [id number] / [phone] Orders: Ferritin Iron Studies Panel Extracted from:Title: [facility] Sick call - Abdominal pain and near-syncope x1 week s/p CSP Author: FADUMO CASTRO MD Date: 02/16/24 1. A bdominal pain PCM Perez 48 y.o. [employer] male seen for increased abdominal pain, fatigue and lightheadedness since Tuesday EGD, CSP, and hemorrhoid banding. Per member passed bands four days later, but per GI office this is normal, but has been having dark stool, although difficult to say if true melena or due to Iron supplement. Per member has had multuiple CSP in the past due to an episode of colitis and fatigue, but negative for Celiac and no dx of IBD. Was able to donate blood and last Hgb=13 in July, but last screen in January was 10.9 so referred to GI -on exam tired appearing, also +Wilson sign which member was unaware of until exam, although has had cholecystectomy. Has been having epigastric pain although no increase on palpation, and negative for RLQ pain, negative pain at McBurney point. Per member GI called him back Tuesday and recommended a CBC but had not told member where to get it so has not gotten it yet -although interestingly per member he has a diagnosis of hemochromatosis, his current labs all indicate iron deficiency anemia, however to follow up with PCM -given this has been ongoing for almost a week and member is well appearing, if labs are stable then member can follow up with GI specialist, but counseled if any evidence of dropping H/H, or leukocytosis suggestive of infection, he would have to be seen in ER, and if any worsening abdominal pain and near-syncope or unsteadiness he would also need to be seen in ER immediately for evaluation -added P epcid 20mg BID to current Nexium 40mg and the Sucralfate recently added by his GI specialist, per member -given hardcopy AF469 for 48h quarters, return to duty Feb 17 -dispo pending labs //SIGNED// FADUMO CASTRO [employer], [employer], MC, FS Family Physician, [facility] Talib VALENTINE, [facility] cortez Mckeon DSN/Comm: [id number] / [phone] Extracted from:Title: Routine nondilated exam- MEDPROS Author: ESTEVAN HESS, OD Date: 02/07/24 1. K eratoconjunctivitis sicca -s/p PRK 2005 (pre-op ~-4.50 OU) -dry eye alleviated with Restasis -->has been on for ~ 5+ years per pt -cont Restasis BID Ordered: cycloSPORINE ophthalmic(Restasis 0.05% ophthalmic emulsion), 1 drop(s), Eye-Both, every 12 hr, # 60 EA, 11 total refill(s), Maintenance, 1 drop(s) Eye-Both every 12 hr, Pharmacy: [facility] [Not filled] 2. P resbyopia -New Spectacle rx dispensed today as seen below (Manifest=Final Rx), lens options recommended per pt ADLs MANIFEST REFRACTION: OD: - 0.50-0.36a247. . . . . . 20/15 OS: pl-0.42f624. . . . . . 2 0/15 Near Add: + 1.75 20/20 Computer Rx OD: +0.50-0.34f691 OS: +1.00-0.68s237 - Discussed 2 pair requirement (DOD). - Glasses ordered in SRTS. F OC computer, 5A reading -Measurements of anatomical facial characteristics and laboratory specifications were taken for glasses and final adjustment was made to the visual axes and anatomical topography of the patient at patients request upon delivery. 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 Form completed for patient to take to unit ([facility], etc) to update into their MEDimeemS system. RTC first avail for DFE only (ok to dilate at screening), otherwise 1 year Ordered: cycloSPORINE ophthalmic(Restasis 0.05% ophthalmic emulsion), 1 drop(s), Eye-Both, every 12 hr, # 60 EA, 11 total refill(s), Maintenance, 1 drop(s) Eye-Both every 12 hr, Pharmacy: [facility] [Not filled] Diagnosis: 1 . K eratoconjunctivitis sicca Comment: Ordered: Restasis 0.05% ophthalmic emulsion; 1 drop(s), Eye-Both, every 12 hr, # 60 EA, 11 total refill(s), Maintenance, 1 drop(s) Eye-Both every 12 hr, Pharmacy: [facility] [Not filled] ? Ophthalmological Medical Xm&Eval Ambare New Pt 1/> Vst [id number]; 02/07/2024 14:58:00 CDT ? Fitting Spectacles Xcpt Aphakia Monofocal [id number]; 02/07/2024 14:58:00 CDT ? Determination Refractive State [id number]; 02/07/2024 14:58:00 CDT D iagnosis: 2 . P resbyopia Comment: Ordered: Restasis 0.05% ophthalmic emulsion; 1 drop(s), Eye-Both, every 12 hr, # 60 EA, 11 total refill(s), Maintenance, 1 drop(s) Eye-Both every 12 hr, Pharmacy: [facility] [Not filled] ? Ophthalmological Medical Xm&Eval Ambare New Pt 1/> Vst [id number]; 02/07/2024 14:58:00 CDT ? Fitting Spectacles Xcpt Aphakia Monofocal [id number]; 02/07/2024 14:58:00 CDT ? Determination Refractive State [id number]; 02/07/2024 14:58:00 CDT End of Orders Extracted from:Title: [facility] MARVIN Author: ERIK GONCALVES DO Date: 01/27/24 MARVIN - Iron deficiency anemia low HBG and low ferritin and iron. - will treat for MARVIN. - repeat labs in 3 months. The patient (is ) World Wide Qualified. 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 Visit deployment related: N o Profile Reviewed MEB in progress: No IMR/ASIMS Status: [X] Green (no action), Member aware. Orders: ferrous fumarate(ferrous fumarate 324 mg (106 mg elemental iron) oral tablet), 1 tab(s), Oral, every other day, # 90 tab(s), 0 total refill(s), Maintenance, 1 tab(s) Oral every other day, Pharmacy: [facility] [Not filled] Erik Goncalves DO, , [place], Family Physician [facility] in [place], [place] [address] [address] Extracted from:Title: [facility] microcytic anemia Author: ERIK GONCALVES DO Date: 01/11/24 Microcytic anemia Most likely the cause of the patients fatigue. - will order labs for microcytic anemia work-up. - will call with results and next steps. - Is on omeprazole 40mg that could be contributing to Iron deficiency anemia based on results of iron panel may need to be adjusted. The patient (is ) World Wide Qualified. 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 Visit deployment related: N o Profile Reviewed MEB in progress: No IMR/ASIMS Status: [employer] Ordered: Ferritin Haptoglobin [id number] Iron Studies Panel LDH [id number] Pathologist Smear Review Erik Goncalves DO, , [facility], Family Physician [facility] in [place], [place] [address] [address] Extracted from:Title: [facility] Fatigue and LBP Author: GIO LIANG PA Date: 12/13/23 1. L ow back pain Est dx. No acute exacerbation of pain. No red flag sxs. Recent MRI with findings of L4-L5 and L5-S1 l oss of disc height and moderate lateral recess narrowing. Continue?with Pain. - NSAIDs P RN and F lexeril for severe pain. - D iscussed ER precautions - F/u for worsening pain, consider NSGY evaluation at that time. 2. 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 R eviewed PHQ-9, [id number]. P revious sleep study negative for TIANNA. Reassuring vital signs. Recommend completion of screening labs to evaluate for underlying etiology. Must be fasting for 10-12 hours prior to and must complete between 2608-2931. - If low testosterone, will repeat testosterone lab. If t wo low testosterone values a re confirmed can consider HRT - F/u w PCM to review lab results Ordered: CBC w/ Diff Comprehensive Metabolic Panel Hemoglobin A1c Lipid Panel Testosterone [id number] TSH w/ Reflex FT4 and Total T3 Vitamin D 25 Hydroxy Level Capt Gio Liang BSC, PA-C [facility] ([facility]) [place] Please note that this dictation was completed with computer voice recognition software, G2Link. Quite often unanticipated grammatical, syntax, homophones, and other interpretive errors are inadvertently transcribed by the computer software. Please disregard these errors and excuse any errors that have escaped final proofreading. If are any questions regarding documentation, please contact this provider directly. Extracted from:Title: [facility] rectal pain. Author: ERIK GONCALVES, DO Date: 12/05/23 Hemorrhoids Chronic reoccurring. Patient feels a fulness in the rectum and had benefit from hemorrhoid treatment in the past. HAs a family hx of BPH. will check PSA. If PSA normal and pain continues despite cream will refer to GI for colonoscopy. - f PSA elevated and symptoms persist will refer to urology for assessment. -f/u in 4 weeks to discuss outcomes. The patient (is ) World Wide Qualified. 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 Visit deployment related: N o Profile Reviewed MEB in progress: No IMR/ASIMS Status: [X] Green (no action), Member aware. Ordered: Prostate Specific Antigen Orders: lidocaine/phenylephrine/glycerin /petrolatum topical(Preparation H Rapid Relief With Lidocaine topical cream), 1 appl(s), Topical, BID, # 28 g, 1 total refill(s), Acute, 1 appl(s) Topical BID, Pharmacy: [facility] [Not filled] Erik Goncalves DO, , STACEYF, Family Physician [facility] in [place], [place] [address] [place] [address] Extracted from:Title: [facility] GERD and sinus tachycardia. Author: ERIK GONCALVES, Date: 11/04/23 GERD - Gastro-esophageal reflux disease Acute on chronic. Controlled. -will refill medication. The patient (is ) World Wide Qualified. 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 Visit deployment related: N o Profile Reviewed MEB in progress: No IMR/ASIMS Status: [employer]. Sinus tachycardia Chronic Controlled on Corlanor. will refill medication. Orders: baclofen(baclofen 10 mg oral tablet), 1 tab(s), Oral, Daily, # 90 tab(s), 0 total refill(s), Maintenance, 1 tab(s) Oral Daily, Pharmacy: [facility] [Not filled] ivabradine(Corlanor 5 mg oral tablet), 5 mg, Oral, Daily, 0 Refill(s), 1 tablet (5 mg total) daily, # 90 tab(s), 3 total refill(s), Maintenance, 5 mg Oral Daily,Instr:0 Refill(s), 1 tablet (5 mg total) daily, Pharmacy: [facility] [Not filled] esomeprazole(esomeprazole 40 mg oral delayed release capsule), 40 mg, Oral, Daily, 0 Refill(s), # 90 cap(s), 3 total refill(s), Maintenance, 40 mg Oral Daily,Instr:0 Refill(s), Pharmacy: [facility] [Not filled] Capt Lynn DO, [place], Family Physician [facility] Program in [place] [address] [address] [place] [address] Extracted from:Title: Acute Optometry Office Visit Note Author: TASHA BATES, OD Date: 08/20/22 D iagnosis: 1 . V itreous degeneration, right eye Comment: P t presented today complaining of sudden onset of floaters. He denies any associated flashes of light. Pt was educated about PVD. Signs and symptoms of RD was also discussed at length with patient. RTC STAT if symptoms worsen. O rdered: Fundus Photography w/Interpretation + Report [id number]; 08/19/2022 08:44:00 EDT ? Ophthalmological [place] [id number]; 08/19/2022 08:44:00 EDT End of Orders Future Appointments Appointment Date: 07/27/2024 09:10:00 AM Scheduled Provider: BINU LIN DC Location: 0055A-PT-CL Appointment Type: CHIRO FTR 07/26/2024 [id number]-[id number] [place] Assessment and Plan Extracted from:Title : FTR - Low back pain Author: BINU LIN DC Date: 07/20/24 D iagnosis: 1 . S ryne stenosis, lumbar region without neurogenic claudication Comment: Ordered: Manual Therapy Tqs 1/> Regions Each 15 Minutes [id number]; 07/20/2024 09:03:00 CDT, 59, Spinal stenosis, lumbar region without neurogenic claudication Segmental and somatic dysfunction of lumbar region ? Chiropractic Manipulative Tx Spinal 3-4 Regions [id number]; 07/20/2024 09:03:00 CDT, Spinal stenosis, lumbar region without neurogenic claudication Segmental and somatic dysfunction of lumbar region Segmental and somatic dysfunction of thoracic region Segmental and somatic dysfunction of cervical region D iagnosis: 2 . S egmental and somatic dysfunction of lumbar region Comment: Ordered: Manual Therapy Tqs 1/> Regions Each 15 Minutes [id number]; 07/20/2024 09:03:00 CDT, 59, Spinal stenosis, lumbar region without neurogenic claudication Segmental and somatic dysfunction of lumbar region ? Chiropractic Manipulative Tx Spinal 3-4 Regions [id number]; 07/20/2024 09:03:00 CDT, Spinal stenosis, lumbar region without neurogenic claudication Segmental and somatic dysfunction of lumbar region Segmental and somatic dysfunction of thoracic region Segmental and somatic dysfunction of cervical region D iagnosis: 3 . S egmental and somatic dysfunction of thoracic region Comment: Ordered: Chiropractic Manipulative Tx Spinal 3-4 Regions [id number]; 07/20/2024 09:03:00 CDT, Spinal stenosis, lumbar region without neurogenic claudication Segmental and somatic dysfunction of lumbar region Segmental and somatic dysfunction of thoracic region Segmental and somatic dysfunction of cervical region D iagnosis: 4 . S egmental and somatic dysfunction of cervical region Comment: Ordered: Chiropractic Manipulative Tx Spinal 3-4 Regions [id number]; 07/20/2024 09:03:00 CDT, Spinal stenosis, lumbar region without neurogenic claudication Segmental and somatic dysfunction of lumbar region Segmental and somatic dysfunction of thoracic region Segmental and somatic dysfunction of cervical region End of Orders Chiropractic Treatment Chiropractic Diversified Adjustments P safia to C/S P safia T/S, S jose posture to [place]lium, SI and L/S A T Performed attended, prone, Ray Flexion/Distraction (12min) to L/S, Protocol II, -59 Distinct separate procedure Therapeutic Modalities None Exercises Continue exercises as prescribed in treatment plan. Final Disposition Patient responded f air to care m arked by s ome mild p alliation of p ain with n o?hard radicualar s /sx, however, h is m oderate pain w ith radiation i nto the?left hip c ontinues s /p chiropractic treatment. Physician Signature //SIGNED// Dr. Binu Lin DC, [facility]K Chiropractic Physician [facility] Main Line DSN/Comm: [id number] / [phone] 07/20/24 09:01:04 Extracted from:Title: FTR - Low back pain Author: BINU LIN DC Date: 07/11/24 Diagnosis: P ain in left hip Comment: Ordered: Needle Insertion(S) Without Injection(S); 3 Or More Muscles ; 07/11/2024 08:55:00 CDT, Pain in left hip ? Manual Therapy Tqs 1/> Regions Each 15 Minutes [id number]; 07/11/2024 08:28:00 CDT, 59, Spinal stenosis, lumbar region without neurogenic claudication Radiculopathy, lumbar region Pain in left hip Segmental and somatic dysfunction of lumbar region ? Chiropractic Manipulative Tx Spinal 3-4 Regions [id number]; 07/11/2024 08:28:00 CDT, Spinal stenosis, lumbar region without neurogenic claudication Radiculopathy, lumbar region Pain in left hip Segmental and somatic dysfunction of lumbar region Segmental and somatic dysfunction of thoracic region Seg... D iagnosis: R adiculopathy, lumbar region Comment: Ordered: Manual Therapy Tqs 1/> Regions Each 15 Minutes [id number]; 07/11/2024 08:28:00 CDT, 59, Spinal stenosis, lumbar region without neurogenic claudication Radiculopathy, lumbar region Pain in left hip Segmental and somatic dysfunction of lumbar region ? Chiropractic Manipulative Tx Spinal 3-4 Regions [id number]; 07/11/2024 08:28:00 CDT, Spinal stenosis, lumbar region without neurogenic claudication Radiculopathy, lumbar region Pain in left hip Segmental and somatic dysfunction of lumbar region Segmental and somatic dysfunction of thoracic region Seg... D iagnosis: S egmental and somatic dysfunction of cervical region Comment: Ordered: Chiropractic Manipulative Tx Spinal 3-4 Regions [id number]; 07/11/2024 08:28:00 CDT, Spinal stenosis, lumbar region without neurogenic claudication Radiculopathy, lumbar region Pain in left hip Segmental and somatic dysfunction of lumbar region Segmental and somatic dysfunction of thoracic region Seg... D iagnosis: S egmental and somatic dysfunction of lumbar region Comment: Ordered: Manual Therapy Tqs 1/> Regions Each 15 Minutes [id number]; 07/11/2024 08:28:00 CDT, 59, Spinal stenosis, lumbar region without neurogenic claudication Radiculopathy, lumbar region Pain in left hip Segmental and somatic dysfunction of lumbar region ? Chiropractic Manipulative Tx Spinal 3-4 Regions [id number]; 07/11/2024 08:28:00 CDT, Spinal stenosis, lumbar region without neurogenic claudication Radiculopathy, lumbar region Pain in left hip Segmental and somatic dysfunction of lumbar region Segmental and somatic dysfunction of thoracic region Seg... D iagnosis: S egmental and somatic dysfunction of thoracic region Comment: Ordered: Chiropractic Manipulative Tx Spinal 3-4 Regions [id number]; 07/11/2024 08:28:00 CDT, Spinal stenosis, lumbar region without neurogenic claudication Radiculopathy, lumbar region Pain in left hip Segmental and somatic dysfunction of lumbar region Segmental and somatic dysfunction of thoracic region Seg... D iagnosis: S ryne stenosis, lumbar region without neurogenic claudication Comment: Ordered: Manual Therapy Tqs 1/> Regions Each 15 Minutes [id number]; 07/11/2024 08:28:00 CDT, 59, Spinal stenosis, lumbar region without neurogenic claudication Radiculopathy, lumbar region Pain in left hip Segmental and somatic dysfunction of lumbar region ? Chiropractic Manipulative Tx Spinal 3-4 Regions [id number]; 07/11/2024 08:28:00 CDT, Spinal stenosis, lumbar region without neurogenic claudication Radiculopathy, lumbar region Pain in left hip Segmental and somatic dysfunction of lumbar region Segmental and somatic dysfunction of thoracic region Seg... End of Orders Chiropractic Treatment Chiropractic Diversified Adjustments S upine to C/S P safia T/S, S jose posture to Ilium, SI and L/S A T Performed attended, prone, Ray Flexion/Distraction (12min) to L/S, Protocol II, -59 Distinct separate procedure Dry Needling Addition: SCREENING: No contra-indications to dry needling (DN) were identified on screening. CONSENT: Patient provided verbal consent after discussion of DN technique, risk/benefits and potential side-effects. VERIFICATION: Prior to procedure, treatment site(s) verified and time out performed. PROCEDURE: P atient _ w ith dry needling performed to following structures that on physical exam?revealed taut bands, focal tenderness and/or hypertonicity felt to contribute to patient s chief complaints of pain and/or decreased function. The following areas were palpated and tender points located in the following locations: G luteus minimus (M-BW-24)Gluteus medius (M-BW-24)Proximal Semimembranosis and Semitendonosis (BL36)Piriformis (GB30)Gluteus desiree (BL54). These areas were cleansed thoroughly with an alcohol swab and a d ry needle was inserted in each tender point. P t tolerated the procedure well. E BL 0/ [place] Used During this procedure: 5 n eedles inserted and 5 r emoved S elect # n eedles . 30 x 60 mm/?5 n eedles ) [id number] - Needle insertion(s) without i njection(s); m ultiple muscle(s) W o r W/O c onstant attended electrical stimulation (04784) x 1 5 m ins a nd soft-tissue mobilization (82057) of trigger points was performed a nd specific care t o avoid the lung field/intercostal regions and/or neurovascular structures. Needling was completed with sterile solid filament needles. Response to treatment: Patient tolerated the procedure well with E BL 0 and d isplayed no significant negative reaction, shortness of breath, bleeding, syncope or other complications post procedure. Patient independently teodoro from exam table and ambulated out of the clinic without complication. Pain control was acceptable to patient prior to departure from clinic. Response: G ood w/ no adverse reactions, aside from general soreness Safety: - [place] precautions and clean dry needling technique were utilized during this procedure. This includes hand hygiene, wearing of treatment gloves, preparing the patient s skin over treatment area with a lcohol wipe, and the use of sterile, solid filament, single patient use needles. - Specific techniques were used to avoid the lung amr and/or neurovascular structures. - Visual inspection after treatment revealed all needles were removed and disposed of in the sharps container. Post-Procedure Instructions: Post-procedure education handout provided. P atient instructed to expect mild to moderate muscle soreness for 24-48 hours and to take a hot bath/shower or use hot packs as well as stretch the involved area to minimize soreness. P atient instructed to seek immediate medical attention should they develop redness in the area, fever, chills, nausea, vomiting, or shortness of breath. Exercises Continue exercises as prescribed in treatment plan. Final Disposition Patient responded w ell to care m celsoked by d ecreased intensity of pain increased ROM? s /p chiropractic treatment. Physician Signature //SIGNED// Dr. Binu Lin DC, [facility]K Chiropractic Physician [facility] Operational Medical [facility] Main Line DSN/Comm: [id number] / [phone] 07/11/24 08:38:24 Extracted from:Title: [facility] MARVIN/OME Author: LORRAINE NAQVI PA Date: 06/22/24 1. I DA - Iron deficiency anemia 48 Years o ld M w/ PMH of MARVIN h ere for ED f/u. Pt visited ED yesterday for dizziness and fatigue. Reports Hgb was 11.5. Pt currently asx. Reports he stopped taking iron supplement in Feb 2024 d /t GI upset. Colonoscopy from Jan 2024 neg for GI malignancy. P t is having trouble scheduling appt t o continue care with GI d/t insurance changes. Pt requesting Hematology referral. - Hematology referral placed - ED precautions given - F/u once c onsult c ompleted Ordered: Referral Request 2.0 - DoD 2. O ME - Otitis media with effusion Pt reports recent AOM of L ear treated with Augmentin. States he has 4 days left of ABX. OME of R ear seen on exam. - Afrin 0.65% 2 spray bid x 3 days. Counseled on u se - ED precautions given - F/u prn Medications reconciled. Pt verbalized understanding and agreement. LORRAINE NAQVI, 1st Lt, [place] [address] Extracted from:Title: FTR - Low back pain Author: BINU LIN DC Date: 06/20/24 D iagnosis: 1 . S ryne stenosis, lumbar region without neurogenic claudication Comment: Ordered: Manual Therapy Tqs 1/> Regions Each 15 Minutes [id number]; 06/20/2024 15:51:00 CDT, 59, Radiculopathy, lumbar region Spinal stenosis, lumbar region without neurogenic claudication ? Chiropractic Manipulative Tx Spinal 3-4 Regions [id number]; 06/20/2024 15:51:00 CDT, Radiculopathy, lumbar region Spinal stenosis, lumbar region without neurogenic claudication Segmental and somatic dysfunction of lumbar region Segmental and somatic dysfunction of thoracic region Segmental and somatic... D iagnosis: 2 . R adiculopathy, lumbar region Comment: Ordered: Manual Therapy Tqs 1/> Regions Each 15 Minutes [id number]; 06/20/2024 15:51:00 CDT, 59, Radiculopathy, lumbar region Spinal stenosis, lumbar region without neurogenic claudication ? Chiropractic Manipulative Tx Spinal 3-4 Regions [id number]; 06/20/2024 15:51:00 CDT, Radiculopathy, lumbar region Spinal stenosis, lumbar region without neurogenic claudication Segmental and somatic dysfunction of lumbar region Segmental and somatic dysfunction of thoracic region Segmental and somatic... D iagnosis: 3 . P ain in left hip Comment: Ordered: Needle Insertion(S) Without Injection(S); 3 Or More Muscles ; 06/20/2024 15:51:00 CDT, Pain in left hip D iagnosis: 4 . S egmental and somatic dysfunction of lumbar region Comment: Ordered: Chiropractic Manipulative Tx Spinal 3-4 Regions [id number]; 06/20/2024 15:51:00 CDT, Radiculopathy, lumbar region Spinal stenosis, lumbar region without neurogenic claudication Segmental and somatic dysfunction of lumbar region Segmental and somatic dysfunction of thoracic region Segmental and somatic... D iagnosis: 5 . S egmental and somatic dysfunction of thoracic region Comment: Ordered: Chiropractic Manipulative Tx Spinal 3-4 Regions [id number]; 06/20/2024 15:51:00 CDT, Radiculopathy, lumbar region Spinal stenosis, lumbar region without neurogenic claudication Segmental and somatic dysfunction of lumbar region Segmental and somatic dysfunction of thoracic region Segmental and somatic... D iagnosis: 6 . S egmental and somatic dysfunction of cervical region Comment: Ordered: Chiropractic Manipulative Tx Spinal 3-4 Regions [id number]; 06/20/2024 15:51:00 CDT, Radiculopathy, lumbar region Spinal stenosis, lumbar region without neurogenic claudication Segmental and somatic dysfunction of lumbar region Segmental and somatic dysfunction of thoracic region Segmental and somatic... End of Orders Chiropractic Treatment Chiropractic Diversified Adjustments P safia to C/S A -P to T/S S jose posture to [place], SI and L/S A T Performed attended, prone, Ray Flexion/Distraction (12min) to L/S P rotocol II - 59 Therapeutic Modalities Dry Needling Addition: SCREENING: No contra-indications to dry needling (DN) were identified on screening. CONSENT: Patient provided verbal consent after discussion of DN technique, risk/benefits and potential side-effects. VERIFICATION: Prior to procedure, treatment site(s) verified and time out performed. PROCEDURE: P atient _ w ith dry needling performed to following structures that on physical exam?revealed taut bands, focal tenderness and/or hypertonicity felt to contribute to patient s chief complaints of pain and/or decreased function. The following areas were palpated and tender points located in the following locations: P roximal Semimembranosis and Semitendonosis (BL36)Gluteus minimus (M-BW-24)Gluteus medius (M-BW-24)Gluteus desiree (BL54)Piriformis (GB30). These areas were cleansed thoroughly with an alcohol swab and a d ry needle was inserted in each tender point. P t tolerated the procedure well. E BL 0/ [place] Used During this procedure: 4 n eedles inserted and 4 r emoved S elect # n eedles . 30 x 75 mm/?7 n eedles S election Size/ 7 n eedles . 30 x 30 mm) 47724 - Needle insertion(s) without i njection(s); m ultiple muscle(s) W o r W/O c onstant attended electrical stimulation (02222) x 8 m ins a nd soft-tissue mobilization (92935) of trigger points was performed a nd specific care t o avoid the lung field/intercostal regions and/or neurovascular structures. Needling was completed with sterile solid filament needles. Response to treatment: Patient tolerated the procedure well with E BL 0 and d isplayed no significant negative reaction, shortness of breath, bleeding, syncope or other complications post procedure. Patient independently teodoro from exam table and ambulated out of the clinic without complication. Pain control was acceptable to patient prior to departure from clinic. Response: G ood w/ no adverse reactions, aside from general soreness Safety: - [place] precautions and clean dry needling technique were utilized during this procedure. This includes hand hygiene, wearing of treatment gloves, preparing the patient s skin over treatment area with a lcohol wipe, and the use of sterile, solid filament, single patient use needles. - Specific techniques were used to avoid the lung mar and/or neurovascular structures. - Visual inspection after treatment revealed all needles were removed and disposed of in the sharps container. Post-Procedure Instructions: Post-procedure education handout provided. P atient instructed to expect mild to moderate muscle soreness for 24-48 hours and to take a hot bath/shower or use hot packs as well as stretch the involved area to minimize soreness. P atient instructed to seek immediate medical attention should they develop redness in the area, fever, chills, nausea, vomiting, or shortness of breath. Physician Signature //SIGNED// Dr. Binu Lin DC, [facility] Chiropractic Physician [id number] [employer] [facility] DSN/Comm: [id number] / [phone] 06/20/24 15:50:22 Extracted from:Title: FTR - Low back and left hip pain Author: BINU LIN DC Date: 06/15/24 D iagnosis: 1 . R adiculopathy, lumbar region Comment: Ordered: Needle Insertion(S) Without Injection(S); 3 Or More Muscles ; 06/15/2024 15:46:00 TIRE LAYER, Radiculopathy, lumbar region ? Manual Therapy Tqs 1/> Regions Each 15 Minutes [id number]; 06/15/2024 15:46:00 TIRE LAYER, Radiculopathy, lumbar region Spinal stenosis, lumbar region without neurogenic claudication ? Chiropractic Manipulative Tx Spinal 3-4 Regions [id number]; 06/15/2024 15:46:00 TIRE LAYER, Radiculopathy, lumbar region Spinal stenosis, lumbar region without neurogenic claudication Pain in left hip Segmental and somatic dysfunction of lumbar region Segmental and somatic dysfunction of thoracic region Other status: Manual Therapy Tqs 1/> Regions Each 15 Minutes [id number]; 06/11/2024 14:10:00 TIRE LAYER, Radiculopathy, lumbar region Spinal stenosis, lumbar region without neurogenic claudication Pain in left hip Segmental and somatic dysfunction of lumbar region ( Completed) ? C hiropractic Manipulative Tx Spinal 3-4 Regions [id number]; 06/11/2024 14:10:00 TIRE LAYER, Radiculopathy, lumbar region Spinal stenosis, lumbar region without neurogenic claudication Pain in left hip Segmental and somatic dysfunction of lumbar region Segmental and somatic dysfunction of thoracic region (Completed) D iagnosis: 2 . S ryne stenosis, lumbar region without neurogenic claudication Comment: Ordered: Manual Therapy Tqs 1/> Regions Each 15 Minutes [id number]; 06/15/2024 15:46:00 TIRE LAYER, Radiculopathy, lumbar region Spinal stenosis, lumbar region without neurogenic claudication ? Chiropractic Manipulative Tx Spinal 3-4 Regions [id number]; 06/15/2024 15:46:00 TIRE LAYER, Radiculopathy, lumbar region Spinal stenosis, lumbar region without neurogenic claudication Pain in left hip Segmental and somatic dysfunction of lumbar region Segmental and somatic dysfunction of thoracic region Other status: Manual Therapy Tqs 1/> Regions Each 15 Minutes [id number]; 06/11/2024 14:10:00 TIRE LAYER, Radiculopathy, lumbar region Spinal stenosis, lumbar region without neurogenic claudication Pain in left hip Segmental and somatic dysfunction of lumbar region ( Completed) ? C hiropractic Manipulative Tx Spinal 3-4 Regions [id number]; 06/11/2024 14:10:00 TIRE LAYER, Radiculopathy, lumbar region Spinal stenosis, lumbar region without neurogenic claudication Pain in left hip Segmental and somatic dysfunction of lumbar region Segmental and somatic dysfunction of thoracic region (Completed) D iagnosis: 3 . P ain in left hip Comment: Ordered: Chiropractic Manipulative Tx Spinal 3-4 Regions [id number]; 06/15/2024 15:46:00 TIRE LAYER, Radiculopathy, lumbar region Spinal stenosis, lumbar region without neurogenic claudication Pain in left hip Segmental and somatic dysfunction of lumbar region Segmental and somatic dysfunction of thoracic region Other status: Manual Therapy Tqs 1/> Regions Each 15 Minutes [id number]; 06/11/2024 14:10:00 TIRE LAYER, Radiculopathy, lumbar region Spinal stenosis, lumbar region without neurogenic claudication Pain in left hip Segmental and somatic dysfunction of lumbar region ( Completed) ? C hiropractic Manipulative Tx Spinal 3-4 Regions [id number]; 06/11/2024 14:10:00 TIRE LAYER, Radiculopathy, lumbar region Spinal stenosis, lumbar region without neurogenic claudication Pain in left hip Segmental and somatic dysfunction of lumbar region Segmental and somatic dysfunction of thoracic region (Completed) D iagnosis: 4 . S egmental and somatic dysfunction of lumbar region Comment: Ordered: Chiropractic Manipulative Tx Spinal 3-4 Regions [id number]; 06/15/2024 15:46:00 TIRE LAYER, Radiculopathy, lumbar region Spinal stenosis, lumbar region without neurogenic claudication Pain in left hip Segmental and somatic dysfunction of lumbar region Segmental and somatic dysfunction of thoracic region Other status: Manual Therapy Tqs 1/> Regions Each 15 Minutes [id number]; 06/11/2024 14:10:00 TIRE LAYER, Radiculopathy, lumbar region Spinal stenosis, lumbar region without neurogenic claudication Pain in left hip Segmental and somatic dysfunction of lumbar region ( Completed) ? C hiropractic Manipulative Tx Spinal 3-4 Regions [id number]; 06/11/2024 14:10:00 TIRE LAYER, Radiculopathy, lumbar region Spinal stenosis, lumbar region without neurogenic claudication Pain in left hip Segmental and somatic dysfunction of lumbar region Segmental and somatic dysfunction of thoracic region (Completed) D iagnosis: 5 . S egmental and somatic dysfunction of thoracic region Comment: Ordered: Chiropractic Manipulative Tx Spinal 3-4 Regions [id number]; 06/15/2024 15:46:00 TIRE LAYER, Radiculopathy, lumbar region Spinal stenosis, lumbar region without neurogenic claudication Pain in left hip Segmental and somatic dysfunction of lumbar region Segmental and somatic dysfunction of thoracic region Other status: Chiropractic Manipulative Tx Spinal 3-4 Regions [id number]; 06/11/2024 14:10:00 TIRE LAYER, Radiculopathy, lumbar region Spinal stenosis, lumbar region without neurogenic claudication Pain in left hip Segmental and somatic dysfunction of lumbar region Segmental and somatic dysfunction of thoracic region ( Completed) End of Orders Chiropractic Treatment Chiropractic Diversified Adjustments P safia to C/S A -P to T/S S jose posture to [place], SI and L/S A T Performed attended, prone, Ray Flexion/Distraction (12min) to L/S - 59 Therapeutic Modalities Dry Needling Addition: SCREENING: No contra-indications to dry needling (DN) were identified on screening. CONSENT: Patient provided verbal consent after discussion of DN technique, risk/benefits and potential side-effects. VERIFICATION: Prior to procedure, treatment site(s) verified and time out performed. PROCEDURE: P atient P safia w ith dry needling performed to following structures that on physical exam r evealed taut bands, focal tenderness and/or hypertonicity felt to contribute to patient’s chief complaints of pain and/or decreased function. The following areas were palpated and tender points located in the following locations: G luteus minimus (M-BW-24)Gluteus desiree (BL54)Gluteus desiree (BL54)Piriformis (GB30)Proximal Semimembranosis and Semitendonosis (BL36). These areas were cleansed thoroughly with an alcohol swab and a d ry needle was inserted in each tender point. P t tolerated the procedure well. E BL 0/ [place] Used During this procedure: 1 0 n eedles inserted and 1 0 r emoved 5 n eedles . 30 x 60 mm/ 5 n eedles . 30 x 30 mm) 82110 - Needle insertion(s) without i njection(s); m ultiple muscle(s) W o r W/O c onstant attended electrical stimulation (35966) x & #160;8 m ins a nd soft-tissue mobilization (46752) of trigger points was performed a nd specific care t o avoid the lung field/intercostal regions and/or neurovascular structures. Needling was completed with sterile solid filament needles. Response to treatment: Patient tolerated the procedure well with E BL 0 and d isplayed no significant negative reaction, shortness of breath, bleeding, syncope or other complications post procedure. Patient independently teodoro from exam table and ambulated out of the clinic without complication. Pain control was acceptable to patient prior to departure from clinic. Response: G ood w/ no adverse reactions, aside from general soreness Safety: - [place] precautions and clean dry needling technique were utilized during this procedure. This includes hand hygiene, wearing of treatment gloves, preparing the patient s skin over treatment area with a lcohol wipe, and the use of sterile, solid filament, single patient use needles. - Specific techniques were used to avoid the lung mar and/or neurovascular structures. - Visual inspection after treatment revealed all needles were removed and disposed of in the sharps container. Post-Procedure Instructions: Post-procedure education handout provided. P atient instructed to expect mild to moderate muscle soreness for 24-48 hours and to take a hot bath/shower or use hot packs as well as stretch the involved area to minimize soreness. P atient instructed to seek immediate medical attention should they develop redness in the area, fever, chills, nausea, vomiting, or shortness of breath. Exercises Continue exercises as prescribed in treatment plan. Final Disposition Patient responded f air to care m arked by some decreased left hip pain s /p chiropractic treatment. Physician Signature //SIGNED// Dr. Binu Lin DC, [facility] Chiropractic Physician [id number] [employer] [facility] DSN/Comm: [id number] / [phone] 06/15/24 15:43:36 Extracted from:Title: FTR - Low back and left hip pain Author: BINU LIN DC Date: 06/13/24 D iagnosis: 1 . R adiculopathy, lumbar region Comment: D iagnosis: 2 . S ryne stenosis, lumbar region without neurogenic claudication Comment: D iagnosis: 3 . P ain in left hip Comment: D iagnosis: 4 . S egmental and somatic dysfunction of lumbar region Comment: D iagnosis: 5 . S egmental and somatic dysfunction of thoracic region Comment: Chiropractic Treatment Chiropractic Diversified Adjustments A -P to T/S S jose posture to [place], SI and L/S A T Performed attended, prone, Ray Flexion/Distraction (12min) to L/S - 59 Therapeutic Modalities None Exercises Continue exercises as prescribed in treatment plan. Final Disposition Patient responded f air to care m arked by o denia sorensen p alliation, temporary reductions in?pain s /p chiropractic treatment. Physician Signature //SIGNED// Dr. Binu Lin DC, [facility] Chiropractic Physician [address] [employer] Natalie Sinha [facility] Main [facility] DSN/Comm: [id number] / [phone] 06/13/24 11:02:03 Extracted from:Title: FTR - Low back and hip pain Author: BINU LIN DC Date: 06/11/24 D iagnosis: 1 . R adiculopathy, lumbar region Comment: Ordered: Needle Insertion(S) Without Injection(S); 3 Or More Muscles 06/11/2024 15:58:00 TIRE LAYER, Radiculopathy, lumbar region Spinal stenosis, lumbar region without neurogenic claudication ? Manual Therapy Tqs 1/> Regions Each 15 Minutes 15292; 06/11/2024 15:58:00 TIRE LAYER, Radiculopathy, lumbar region Spinal stenosis, lumbar region without neurogenic claudication ? Chiropractic Manipulative Tx Spinal 3-4 Regions [id number]; 06/11/2024 15:58:00 TIRE LAYER, Radiculopathy, lumbar region Spinal stenosis, lumbar region without neurogenic claudication Segmental and somatic dysfunction of lumbar region Segmental and somatic dysfunction of thoracic region D iagnosis: 2 . S ryne stenosis, lumbar region without neurogenic claudication Comment: Ordered: Needle Insertion(S) Without Injection(S); 3 Or More Muscles 06/11/2024 15:58:00 TIRE LAYER, Radiculopathy, lumbar region Spinal stenosis, lumbar region without neurogenic claudication ? Manual Therapy Tqs 1/> Regions Each 15 Minutes 27647; 06/11/2024 15:58:00 TIRE LAYER, Radiculopathy, lumbar region Spinal stenosis, lumbar region without neurogenic claudication ? Chiropractic Manipulative Tx Spinal 3-4 Regions 54973; 06/11/2024 15:58:00 TIRE LAYER, Radiculopathy, lumbar region Spinal stenosis, lumbar region without neurogenic claudication Segmental and somatic dysfunction of lumbar region Segmental and somatic dysfunction of thoracic region D iagnosis: 3 . S egmental and somatic dysfunction of lumbar region Comment: Ordered: Chiropractic Manipulative Tx Spinal 3-4 Regions 24202; 06/11/2024 15:58:00 TIRE LAYER, Radiculopathy, lumbar region Spinal stenosis, lumbar region without neurogenic claudication Segmental and somatic dysfunction of lumbar region Segmental and somatic dysfunction of thoracic region D iagnosis: 4 . S egmental and somatic dysfunction of thoracic region Comment: Ordered: Chiropractic Manipulative Tx Spinal 3-4 Regions 08184; 06/11/2024 15:58:00 TIRE LAYER, Radiculopathy, lumbar region Spinal stenosis, lumbar region without neurogenic claudication Segmental and somatic dysfunction of lumbar region Segmental and somatic dysfunction of thoracic region End of Orders Chiropractic Treatment Chiropractic Diversified Adjustments P safia to C/S A -P to T/S S jose posture to [place], SI and L/S A T Performed attended, prone, Ray Flexion/Distraction (12min) to L/S Dry Needling Addition: SCREENING: No contra-indications to dry needling (DN) were identified on screening. CONSENT: Patient provided verbal consent after discussion of DN technique, risk/benefits and potential side-effects. VERIFICATION: Prior to procedure, treatment site(s) verified and time out performed. PROCEDURE: P atient P safia w ith dry needling performed to following structures that on physical exam r evealed taut bands, focal tenderness and/or hypertonicity felt to contribute to patient’s chief complaints of pain and/or decreased function. The following areas were palpated and tender points located in the following locations: G luteus medius (M-BW-24)Piriformis (GB30)Proximal Semimembranosis and Semitendonosis (BL36)ACU point/sGluteus desiree (BL54). These areas were cleansed thoroughly with an alcohol swab and a d ry needle was inserted in each tender point. P t tolerated the procedure well. E BL 0/ [place] Used During this procedure: 4 n eedles inserted and 4 r emoved S elect # n eedles . 30 x 60 mm 70807 - Needle insertion(s) without i njection(s); m ultiple muscle(s) w ithout c onstant attended electrical stimulation (26291) x 1 5 m ins a nd soft-tissue mobilization (11034) of trigger points was performed a nd specific care t o avoid the lung field/intercostal regions and/or neurovascular structures. Needling was completed with sterile solid filament needles. Response to treatment: Patient tolerated the procedure well with E BL 0 and d isplayed no significant negative reaction, shortness of breath, bleeding, syncope or other complications post procedure. Patient independently teodoro from exam table and ambulated out of the clinic without complication. Pain control was acceptable to patient prior to departure from clinic. Response: G ood w/ no adverse reactions, aside from general soreness Safety: - [place] precautions and clean dry needling technique were utilized during this procedure. This includes hand hygiene, wearing of treatment gloves, preparing the patient s skin over treatment area with a lcohol wipe, and the use of sterile, solid filament, single patient use needles. - Specific techniques were used to avoid the lung mar and/or neurovascular structures. - Visual inspection after treatment revealed all needles were removed and disposed of in the sharps container. Post-Procedure Instructions: Post-procedure education handout provided. P atient instructed to expect mild to moderate muscle soreness for 24-48 hours and to take a hot bath/shower or use hot packs as well as stretch the involved area to minimize soreness. P atient instructed to seek immediate medical attention should they develop redness in the area, fever, chills, nausea, vomiting, or shortness of breath. Exercises Continue exercises as prescribed in treatment plan. Final Disposition Patient responded f air t o initial treatment marked by d ecreased intensity of pain increased ROM. P atient i s p rogressing towards STG s /LTG s . Patient is to continue with home care and prescribed exercises. Follow u p as indicated by treatment plan and/or sooner if s/sx increase. Physician Signature / /SIGNED// Dr. Binu Lin DC, [facility] Chiropractic Physician [address] [employer] Natalie Sinha [facility] Main Line DSN/Comm: [id number] / [phone] 06/11/24 15:57:15 Extracted from:Title: SPEC - Low back pain Author: BINU LIN DC Date: 06/08/24 D iagnosis: 1 . S ryne stenosis, lumbar region without neurogenic claudication Comment: Ordered: Therapeutic Px 1/> Areas Each 15 Min Exercises 61324; 06/08/2024 16:10:00 TIRE LAYER, Radiculopathy, lumbar region Pain in left hip Spinal stenosis, lumbar region without neurogenic claudication ? Manual Therapy Tqs 1/> Regions Each 15 Minutes [id number]; 06/08/2024 16:10:00 TIRE LAYER, Radiculopathy, lumbar region Spinal stenosis, lumbar region without neurogenic claudication ? Chiropractic Manipulative Tx Spinal 3-4 Regions 52714; 06/08/2024 16:10:00 TIRE LAYER, Radiculopathy, lumbar region Pain in left hip Spinal stenosis, lumbar region without neurogenic claudication Segmental and somatic dysfunction of lumbar region Segmental and somatic dysfunction of thoracic region ? Office Visit Level 3 [place] [id number]; 06/08/2024 16:10:00 TIRE LAYER, Spinal stenosis, lumbar region without neurogenic claudication Radiculopathy, lumbar region Pain in left hip Segmental and somatic dysfunction of lumbar region Segmental and somatic dysfunction of thoracic region D iagnosis: 2 . R adiculopathy, lumbar region Comment: Ordered: Therapeutic Px 1/> Areas Each 15 Min Exercises 30604; 06/08/2024 16:10:00 TIRE LAYER, Radiculopathy, lumbar region Pain in left hip Spinal stenosis, lumbar region without neurogenic claudication ? Manual Therapy Tqs 1/> Regions Each 15 Minutes 77402; 06/08/2024 16:10:00 TIRE LAYER, Radiculopathy, lumbar region Spinal stenosis, lumbar region without neurogenic claudication ? Chiropractic Manipulative Tx Spinal 3-4 Regions 83938; 06/08/2024 16:10:00 TIRE LAYER, Radiculopathy, lumbar region Pain in left hip Spinal stenosis, lumbar region without neurogenic claudication Segmental and somatic dysfunction of lumbar region Segmental and somatic dysfunction of thoracic region ? Office Visit Level 3 New [id number]; 06/08/2024 16:10:00 TIRE LAYER, Spinal stenosis, lumbar region without neurogenic claudication Radiculopathy, lumbar region Pain in left hip Segmental and somatic dysfunction of lumbar region Segmental and somatic dysfunction of thoracic region D iagnosis: 3 . P ain in left hip Comment: Ordered: Therapeutic Px 1/> Areas Each 15 Min Exercises 59245; 06/08/2024 16:10:00 TIRE LAYER, Radiculopathy, lumbar region Pain in left hip Spinal stenosis, lumbar region without neurogenic claudication ? Chiropractic Manipulative Tx Spinal 3-4 Regions 38717; 06/08/2024 16:10:00 TIRE LAYER, Radiculopathy, lumbar region Pain in left hip Spinal stenosis, lumbar region without neurogenic claudication Segmental and somatic dysfunction of lumbar region Segmental and somatic dysfunction of thoracic region ? Office Visit Level 3 [facility] 720[address]; 06/08/2024 16:10:00 TIRE LAYER, Spinal stenosis, lumbar region without neurogenic claudication Radiculopathy, lumbar region Pain in left hip Segmental and somatic dysfunction of lumbar region Segmental and somatic dysfunction of thoracic region D iagnosis: 4 . S egmental and somatic dysfunction of thoracic region Comment: Ordered: Chiropractic Manipulative Tx Spinal 3-4 Regions [id number]; 06/08/2024 16:10:00 TIRE LAYER, Radiculopathy, lumbar region Pain in left hip Spinal stenosis, lumbar region without neurogenic claudication Segmental and somatic dysfunction of lumbar region Segmental and somatic dysfunction of thoracic region ? Office Visit Level 3 [facility] [id number]; 06/08/2024 16:10:00 TIRE LAYER, Spinal stenosis, lumbar region without neurogenic claudication Radiculopathy, lumbar region Pain in left hip Segmental and somatic dysfunction of lumbar region Segmental and somatic dysfunction of thoracic region D iagnosis: 5 . S egmental and somatic dysfunction of lumbar region Comment: Ordered: Chiropractic Manipulative Tx Spinal 3-4 Regions [id number]; 06/08/2024 16:10:00 TIRE LAYER, Radiculopathy, lumbar region Pain in left hip Spinal stenosis, lumbar region without neurogenic claudication Segmental and somatic dysfunction of lumbar region Segmental and somatic dysfunction of thoracic region ? Office Visit Level 3 [facility] [id number]; 06/08/2024 16:10:00 TIRE LAYER, Spinal stenosis, lumbar region without neurogenic claudication Radiculopathy, lumbar region Pain in left hip Segmental and somatic dysfunction of lumbar region Segmental and somatic dysfunction of thoracic region End of Orders Chiropractic Treatment Chiropractic Diversified Adjustments A -P to T/S S jose posture to Ilium, SI and L/S A T Performed attended, prone, Ray Flexion/Distraction (12min) to L/S Therapeutic Modalities None FINAL DISPOSITION Patient Consent f or Examination and Treatment: Ronny Olmos Patient advised of the nature of chiropractic examination and treatment, the risks and benefits of chiropractic versus other procedures for t his condition, relative chance of each occurrence, exacerbation of current clinical s/sx, and alternative options including no treatment. Verbal informed consent was given by the patient to proceed with evaluation and treatment which may include but not limited to i nspection, palpation, percussion, compression, cross friction massage, trigger point therapy, electrical stimulation, d ry needling, heat, cold, s tretching, d iagnostic and therapeutic ultrasound, to regions of the t highs, hips and buttocks, back, neck, upper chest, and abdomen. Patient may expect total relief from pain, temporary relief from pain, increased pain, residual muscle soreness after the initial treatment which should resolve within a few days. If pain becomes intolerable patient to contact this clinic directly for acute care appointment and/or referral instruction. Advised patient consent may be revoked by them at any time. The patient verbalized and understanding of informed consent and verbalized consent to examination and treatment. Patient directs consent to be valid for all treatments rendered in this clinic. T sophia for patient questions was allotted and all questions were answered. 06/08/24 14:28:59 Chronic low back pain and left hip pain with n/t secondary to a large L5-S1 posterior central disc osteophyte complex resulting in moderate to severe central stenosis and e ffaces the bilateral S1 nerve roots and L4/L5 broad based disc bulge with posterior osteophyte complex and lateral recess stenosis. His prognosis is guarded given the protracted history, prior treatment, progressive r adicular pain patterns. He can manage with multiple i nterventions. I would like to begin a short course of Ray Flexion Distraction Decompression 2-3 times a week for 2-3 weeks. If this provides palliation I will continue with a more protracted treatment plan. Given his significant relief with Dry Needling, I w ill include this procedure in his plan. Physician Signature //SIGNED// Dr. Binu Lin DC, RMSK Chiropractic Physician [address] [place], [place] [facility] DSN/Comm: [phone] / [phone] 06/08/24 15:45:51 Extracted from:Title: [facility] LBP Author: ERIK GONCALVES DO Date: 06/01/24 Low back pain Nurse visit injection without side effect. home stretches/RICE therapy. f/u PRN. The patient (is ) World Wide Qualified. 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 Visit deployment related: N o Profile Reviewed MEB in progress: No IMR/ASIMS Status: [employer] Ordered: ketorolac(ketorolac), 15 mg, IntraMuscular, Solution, every 6 hr, Order Duration: 5 days, First Dose: 06/01/2024 13:00:00 TIRE LAYER, Stop Date: 06/06/2024 12:59:00 TIRE LAYER, 06/01/2024 12:02:00 TIRE LAYER Orders: ketorolac(Toradol 15 mg/mL injectable solution), 15 mg, IntraMuscular, every 6 hr, # 1 mL, 0 total refill(s), Acute, 06/02/2024, Pharmacy: [facility] [Not filled] Capt Lynn DO, [employer], Family Physician [facility] Residency Program in [place], [place] [address] [address] Extracted from:Title: [facility] colitis work-up Author: ERIK GONCALVES, DO Date: 03/13/24 Colitis C ontinue with GI work-up - discussed the med board process and what that would look like. - will call next week and discuss results of GI work-up with patient if GI does not first. The patient (is not ) World Wide Qualified. 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 Visit deployment related: N o Profile Reviewed MEB in progress: No IMR/ASIMS Status: [facility] Capt Lynn DO, [employer], Family Physician [facility] Res[facility] Program in [place], [place] [address] [place] [address] Extracted from:Title: [facility] Sick call - F/u Feb 16 ER visit for colitis Author: FADUMO CASTRO MD Date: 02/21/24 1. 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 Continues to have unsteadiness and nausea, but no worsening since initial visit last week. Has messaged his GI provider on diagnosis but not heard back yet -unlikely to be IBD given symptoms ongoing since his CSP and hemorrhoid banding and per member no abnormalities at that time -would have thought member would be discharged on Ciprofloxacin and Flagyl, however for now to complete course of Augmentin, will review notes when available. -member mentioned upcoming TDY leaving on Tuesday for [place], although not advisable to travel given ongoing lightheadedness and unsteadiness and recent colitis, given he will be on [place] and major MTF [place] is there, he will have completed his antibiotics, l abs were stable, and symptoms aren't worsening, I don't believe he needs to cancel it but emphasized LOW threshold for medical follow up, and would advise canceling if symptoms worsen before Tuesday -additional 48h quarters placed -to f/u with PCM after return from TDY if fails to resolve, sooner as needed //SIGNED// FADUMO CASTRO, Col, [employer], MC, FS Family Physician, [facility] Talib VALENTINE, [facility] cortez Mckeon DSN/Comm: [phone] / [phone] Orders: Ferritin Iron Studies Panel Extracted from:Title: [facility] Sick call - Abdominal pain and near-syncope x1 week s/p CSP Author: FADUMO CASTRO MD Date: 02/16/24 1. A bdominal pain PCM Chris 48 y.o. [employer] male seen for increased abdominal pain, fatigue and lightheadedness since Tuesday EGD, CSP, and hemorrhoid banding. Per member passed bands four days later, but per GI office this is normal, but has been having dark stool, although difficult to say if true melena or due to Iron supplement. Per member has had multuiple CSP in the past due to an episode of colitis and fatigue, but negative for Celiac and no dx of IBD. Was able to donate blood and last Hgb=13 in July, but last screen in January was 10.9 so referred to GI -on exam tired appearing, also +Wilson sign which member was unaware of until exam, although has had cholecystectomy. Has been having epigastric pain although no increase on palpation, and negative for RLQ pain, negative pain at McBurney point. Per member GI called him back Tuesday and recommended a CBC but had not told member where to get it so has not gotten it yet -although interestingly per member he has a diagnosis of hemochromatosis, his current labs all indicate iron deficiency anemia, however to follow up with PCM -given this has been ongoing for almost a week and member is well appearing, if labs are stable then member can follow up with GI specialist, but counseled if any evidence of dropping H/H, or leukocytosis suggestive of infection, he would have to be seen in ER, and if any worsening abdominal pain and near-syncope or unsteadiness he would also need to be seen in ER immediately for evaluation -added P epcid 20mg BID to current Nexium 40mg and the Sucralfate recently added by his GI specialist, per member -given hardcopy AF469 for 48h quarters, return to duty Feb 17 -dispo pending labs //SIGNED// FADUMO CASTRO Lt Col, STACEYF, MC, FS Family Physician, [facility] Talib VALENTINE, [facility] cortez Mckeon DSN/Comm: [phone] / [phone] Extracted from:Title: Routine nondilated exam- MEDPROS Author: ESTEVAN HESS OD Date: 02/07/24 1. K eratoconjunctivitis sicca -s/p PRK 2005 (pre-op ~-4.50 OU) -dry eye alleviated with Restasis -->has been on for ~ 5+ years per pt -cont Restasis BID Ordered: cycloSPORINE ophthalmic(Restasis 0.05% ophthalmic emulsion), 1 drop(s), Eye-Both, every 12 hr, # 60 EA, 11 total refill(s), Maintenance, 1 drop(s) Eye-Both every 12 hr, Pharmacy: [facility] [Not filled] 2. P resbyopia -New Spectacle rx dispensed today as seen below (Manifest=Final Rx), lens options recommended per pt ADLs MANIFEST REFRACTION: OD: - 0.50-0.48n852. . . . . . 20/15 OS: pl-0.45r320. . . . . . 2 0/15 Near Add: + 1.75 20/20 Computer Rx OD: +0.50-0.76q905 OS: +1.00-0.77m323 - Discussed 2 pair requirement (DOD). - Glasses ordered in SRTS. F OC computer, 5A reading -Measurements of anatomical facial characteristics and laboratory specifications were taken for glasses and final adjustment was made to the visual axes and anatomical topography of the patient at patients request upon delivery. 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 Form completed for patient to take to unit ([facility], etc) to update into their MEDPROS system. RTC first avail for DFE only (ok to dilate at screening), otherwise 1 year Ordered: cycloSPORINE ophthalmic(Restasis 0.05% ophthalmic emulsion), 1 drop(s), Eye-Both, every 12 hr, # 60 EA, 11 total refill(s), Maintenance, 1 drop(s) Eye-Both every 12 hr, Pharmacy: [facility] [Not filled] Diagnosis: 1 . K eratoconjunctivitis sicca Comment: Ordered: Restasis 0.05% ophthalmic emulsion; 1 drop(s), Eye-Both, every 12 hr, # 60 EA, 11 total refill(s), Maintenance, 1 drop(s) Eye-Both every 12 hr, Pharmacy: [facility] [Not filled] ? Ophthalmological Medical Xm&Eval [place]st [id number]; 02/07/2024 14:58:00 CDT ? Fitting Spectacles Xcpt Aphakia Monofocal [id number]; 02/07/2024 14:58:00 CDT ? Determination Refractive State [id number]; 02/07/2024 14:58:00 CDT D iagnosis: 2 . P resbyopia Comment: Ordered: Restasis 0.05% ophthalmic emulsion; 1 drop(s), Eye-Both, every 12 hr, # 60 EA, 11 total refill(s), Maintenance, 1 drop(s) Eye-Both every 12 hr, Pharmacy: [facility] [Not filled] ? Ophthalmological Medical Xm&Eval Compre New Pt 1/> Vst [id number]; 02/07/2024 14:58:00 CDT ? Fitting Spectacles Xcpt Aphakia Monofocal [id number]; 02/07/2024 14:58:00 CDT ? Determination Refractive State [id number]; 02/07/2024 14:58:00 CDT End of Orders Extracted from:Title: [facility] MARVIN Author: ERIK GONCALVES, DO Date: 01/27/24 MARVIN - Iron deficiency anemia low HBG and low ferritin and iron. - will treat for MARVIN. - repeat labs in 3 months. The patient (is ) World Wide Qualified. 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 Visit deployment related: N o Profile Reviewed MEB in progress: No IMR/ASIMS Status: [X] Green (no action), Member aware. Orders: ferrous fumarate(ferrous fumarate 324 mg (106 mg elemental iron) oral tablet), 1 tab(s), Oral, every other day, # 90 tab(s), 0 total refill(s), Maintenance, 1 tab(s) Oral every other day, Pharmacy: [facility] [Not filled] Erik Goncalves DO, Capt, [place], Family Physician [facility] [facility] Residency Program in [place], [place] [address] [place] [address] Extracted from:Title: [facility] microcytic anemia Author: ERIK GONCALVES, DO Date: 01/11/24 Microcytic anemia Most likely the cause of the patients fatigue. - will order labs for microcytic anemia work-up. - will call with results and next steps. - Is on omeprazole 40mg that could be contributing to Iron deficiency anemia based on results of iron panel may need to be adjusted. The patient (is ) World Wide Qualified. 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 Visit deployment related: N o Profile Reviewed MEB in progress: No IMR/ASIMS Status: [employer] Ordered: Ferritin Haptoglobin [id number] Iron Studies Panel LDH [id number] Pathologist Smear Review Capt Lynn DO [facility], Family Physician [facility] Residency Program in [place], [place] [address] [address] Extracted from:Title: [facility] Fatigue and LBP Author: GIO LIANG PA Date: 12/13/23 1. L ow back pain Est dx. No acute exacerbation of pain. No red flag sxs. Recent MRI with findings of L4-L5 and L5-S1 l oss of disc height and moderate lateral recess narrowing. Continue?with Pain. - NSAIDs P RN and F lexeril for severe pain. - D iscussed ER precautions - F/u for worsening pain, consider NSGY evaluation at that time. 2. 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 R eviewed PHQ-9, [id number]. P revious sleep study negative for TIANNA. Reassuring vital signs. Recommend completion of screening labs to evaluate for underlying etiology. Must be fasting for 10-12 hours prior to and must complete between 7668-0513. - If low testosterone, will repeat testosterone lab. If t wo low testosterone values a re confirmed can consider HRT - F/u w PCM to review lab results Ordered: CBC w/ Diff Comprehensive Metabolic Panel Hemoglobin A1c Lipid Panel Testosterone [id number] TSH w/ Reflex FT4 and Total T3 Vitamin D 25 Hydroxy Level Capt Gio Liang, SHAWN, PA-C [facility] ([facility]) [place] Please note that this dictation was completed with computer voice recognition software, G2Link. Quite often unanticipated grammatical, syntax, homophones, and other interpretive errors are inadvertently transcribed by the computer software. Please disregard these errors and excuse any errors that have escaped final proofreading. If are any questions regarding documentation, please contact this provider directly. Extracted from:Title: [facility] rectal pain. Author: ERIK GONCALVES, DO Date: 12/05/23 Hemorrhoids Chronic reoccurring. Patient feels a fulness in the rectum and had benefit from hemorrhoid treatment in the past. HAs a family hx of BPH. will check PSA. If PSA normal and pain continues despite cream will refer to GI for colonoscopy. - f PSA elevated and symptoms persist will refer to urology for assessment. -f/u in 4 weeks to discuss outcomes. The patient (is ) World Wide Qualified. 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 Visit deployment related: N o Profile Reviewed MEB in progress: No IMR/ASIMS Status: [X] Green (no action), Member aware. Ordered: Prostate Specific Antigen Orders: lidocaine/phenylephrine/glycerin /petrolatum topical(Preparation H Rapid Relief With Lidocaine topical cream), 1 appl(s), Topical, BID, # 28 g, 1 total refill(s), Acute, 1 appl(s) Topical BID, Pharmacy: [facility] [Not filled] Erik Goncalves DO, Capt, [place], Family Physician [facility] [facility] Residency Program in [place], [place] [address] [place] [address] Extracted from:Title: [facility] GERD and sinus tachycardia. Author: ERIK GONCALVES, DO Date: 11/04/23 GERD - Gastro-esophageal reflux disease Acute on chronic. Controlled. -will refill medication. The patient (is ) World Wide Qualified. 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 Visit deployment related: N o Profile Reviewed MEB in progress: No IMR/ASIMS Status: [employer]. Sinus tachycardia Chronic Controlled on Corlanor. will refill medication. Orders: baclofen(baclofen 10 mg oral tablet), 1 tab(s), Oral, Daily, # 90 tab(s), 0 total refill(s), Maintenance, 1 tab(s) Oral Daily, Pharmacy: [facility] [Not filled] ivabradine(Corlanor 5 mg oral tablet), 5 mg, Oral, Daily, 0 Refill(s), 1 tablet (5 mg total) daily, # 90 tab(s), 3 total refill(s), Maintenance, 5 mg Oral Daily,Instr:0 Refill(s), 1 tablet (5 mg total) daily, Pharmacy: [facility] [Not filled] esomeprazole(esomeprazole 40 mg oral delayed release capsule), 40 mg, Oral, Daily, 0 Refill(s), # 90 cap(s), 3 total refill(s), Maintenance, 40 mg Oral Daily,Instr:0 Refill(s), Pharmacy: [facility] [Not filled] Capt Lynn DO, [employer] Family Physician [facility] [facility] Medicine Residency Program in [place] [address] [address] [address] Extracted from:Title: Acute Optometry Office Visit Note Author: TASHA BATES, OD Date: 08/20/22 D iagnosis: 1 . V itreous degeneration, right eye Comment: P sonali presented today complaining of sudden onset of floaters. He denies any associated flashes of light. Pt was educated about PVD. Signs and symptoms of RD was also discussed at length with patient. RTC STAT if symptoms worsen. O rdered: Fundus Photography w/Interpretation + Report [id number]; 08/19/2022 08:44:00 EDT ? Ophthalmological Medical X[place] [id number]; 08/19/2022 08:44:00 EDT End of Orders Future Appointments Appointment Date: 07/27/2024 09:10:00 AM Scheduled Provider: BINU LIN DC Location: [address] [place] [address] Appointment Type: CHIRO FTR 07/26/2024 [facility] [place]lu Advance Directives List of completed, amended, or rescinded Advance Directives on record at Department of 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 An actual copy of the Directive is not included. Date Advance Directive Provider Source 12/21/2018 ADVANCE DIRECTIVE KELLY LIRA [facility], VISN 15 03/11/2017 ADVANCE DIRECTIVE LYNN PADGETT II [facility] Functional Status Combined list of recent functional and cognitive assessments recorded at Department of Defense and Veterans [employer] ([place] Functional Talent Measurement (FIM) Scale: 1 = Total Assistance (Subject = 0% +), 2 = Maximal Assistance (Subject = 25% +), 3 = Moderate Assistance (Subject = 50% +), 4 = Minimal Assistance (Subject = 75% +), 5 = Supervision, 6 = Modified Talent (Device), 7 = Complete Talent (Timely, Safely). Assessment Date/Time Source Assessment Type Assessment Skill Assessment Score Assessment Details No data available for this section
--- OUTSIDE RECORDS SUMMARY | 2024-07-26 07:43 | XMS_ITS | Encounter Summary ---
Author Organization [facility] Healthcare Address [address] [place] [address] Care Team Providers Care Rapid Transit Operator Name Role Phone [facility] [place] Primary Care Provider [phone] Zachary Kapoor MD Unavailable Erik Goncalves DO Unavailable Erik Goncalves DO Primary Care Provider [phone] Encounter Details Date Type Department Care Team (Late st Contact Info) Description 05/07/2024 Telephone [facility] Pain [address] [address] Sirena Alejandre RN Social History Tobacco Use Types Packs/Day Years [...] on filedocumented in this encounter Care Teams Rapid Transit Operator Relationship Specialty Start Date End Date [facility], [facility] [place] [address] [place], [place] [address] PCP - General 09/14/23 05/30/24 Erik Goncalves DO [address] [place] [address] PCP - General Family Medicine 05/31/24 Zachary Kapoor MD [address] [facility], [address] [address] Consulting Physician Pain Management 09/23/23 Erik Goncalves DO [address] [facility], [address] [address] Family Medicine 09/30/23 documented as of this encounter
--- OUTSIDE RECORDS SUMMARY | 2024-07-26 07:43 | XMS_ITS | Continuity of Care Document ---
Author Organization [facility]. 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 Role Phone Unavailable Unavailable Unavailable Unavailable Unavailable Unavailable Unavailable Unavailable Unavailable Unavailable Unavailable Unavailable Unavailable Unavailable Unavailable Unavailable Unavailable Unavailable Unavailable Unavailable Unavailable Unavailable Unavailable Unavailable Unavailable Unavailable Unavailable Unavailable Unavailable Unavailable Unavailable Unavailable Unavailable Unavailable Unavailable Unavailable Unavailable Unavailable Unavailable Unavailable Unavailable Unavailable Unavailable Unavailable Unavailable Unavailable Unavailable Unavailable Unavailable Unavailable Unavailable Unavailable Unavailable Unavailable Unavailable Unavailable Unavailable Unavailable Unavailable Unavailable Unavailable Unavailable Unavailable Unavailable Unavailable Unavailable Unavailable Unavailable Unavailable Unavailable Unavailable Unavailable Unavailable Unavailable Unavailable Unavailable Unavailable Unavailable Unavailable Unavailable Unavailable Unavailable Unavailable Unavailable Unavailable Unavailable Unavailable Unavailable Unavailable Problems Headache Onset:18-Jan-2024 Kemal Griffiths MD [place] Onset:07-Jul-2022 Digna DURHAM Leukocytosis Onset:07-Jul-2022 Digna DURHAM Localized swelling of right upper limb Onset:06-Jan-2022 Ashley Tim MD Bradycardia Onset:19-Mar-2021 Hilario Irby NP Dizziness present Onset:19-Mar-2021 Hilario Irby NP NOTICE: A previous version of this encounter summary may have had an inaccurate diagnosis descriptor that has been removed. The previous version with the inaccurate descriptor is available in an archived version. Onset:06-Jun-2019 Nausea Onset:16-Apr-2019 Gastro-esophageal reflux disease Tachycardia, unspecified Iron deficiency anemia secondary to blood loss (chronic) Comments:IRON DEFICIENCY ANEMIA SECONDARY TO BLOOD LOSS (CH Allergies and Adverse Reactions No Known Drug Allergies(Cristian rgy) Onset: 17-Jan-2024 Reaction:NKDA pseudoephedrine(Allergy) Onset: 17-Jan-2024 Reaction:HIGH BP Propranolol(Allergy) Onset: 17-Jan-2024 Reaction:WACKY HEART RATE hydrocodone(Allergy) Onset: 21-Feb-2012 Reaction:SEVERE CONSTIPATION No Known Allergies(Allergy) seasonal(Allergy) Medications diphenhydrAMINE hydrochloride 50 MG/ML Injectable Solution;25 MILLIGRAM 1XED Quantity:1 Kemal Griffiths MD Start:3-Pmc-0608Pkc:17-Jan-20 Comments:[id number] Administration Instructions:GIVE IV PUSH NO FASTER THAN 25 MG PER MINUTE. ketorolac tromethamine 30 MG/ML Injectable Solution;30 MILLIGRAM 1XED Quantity:1 Kemal Griffiths MD Start:6-[id number]-9814Qvp:17-Jan-20 Comments:[id number] Administration Instructions:MAXIMUM DAILY DOSE = 120 MG.MAY GIVE IV UNDILUTED OVER1 MINUTE. 2 ML prochlorperazine 5 MG/ML Injection;10 MILLIGRAM 1XED Quantity:1 Kemal Griffiths MD Start:6-Fah-8631Ieo:17-Jan-20 Comments:[id number] Administration Instructions:DO NOT EXCEED 5 MG/MINUTE. esomeprazole 40 MG Delayed Release Oral Capsule Start:17-Jan-2024 CORLANOR Start:17-Jan-2024 Nifedipine/ Lidocaine;Nifedipine 0.3%, Lidocaine 1.5%, Lanolin 42 grams, Vaseline 75 grams to affected area Three times daily, Apply ointment Quantity:1 SARKIS Griffiths Start:13-Jul-2022 Comments:Nifedipine 0.3%, Lidocaine 1.5%, Lanolin 42 grams, Vaseline 75 grams to affected area Three times daily, Apply ointment predniSONE 50 MG Oral Tablet;50 MILLIGRAM PO DAILY Start:06-Jan-2022 Status:Discontinued Comments:50 MG PO DAILY Mupirocin 0.02 MG/MG Topical Ointment;2 % Externally TID, 1 application Quantity:1 SARKIS Griffiths Start:28-Sep-2021 Status:Inactive Comments:2 % Externally TID, 1 application Fluticasone-Salmeterol;250- 50 MCG/ACT Inhalation Twice a day, 1 puff SARKIS Griffiths Start:25-Sep-2021 Comments:250-50 MCG/ACT Inhalation Twice a day, 1 puff Paxlovid;20 x 150 MG & 10 x 100MG Orally , as directed Quantity:1 SARKIS Griffiths Start:25-Sep-2021 Status:Inactive Comments:20 x 150 MG & 10 x 100MG Orally , as directed Symbicort;160-4.5 MCG/ACT Inhalation Twice a day, 2 puffs Quantity:1 SARKIS Griffiths Start:25-Sep-2021 Comments:160-4.5 MCG/ACT Inhalation Twice a day, 2 puffs pregabalin 75 MG Oral Capsule;75 MILLIGRAM PO BID Start:19-Mar-2021 Status:Discontinued Comments:75 MG PO BID Meloxicam;15 MG Orally Once a day, 1 tablet Quantity:30 SARKIS Griffiths Start:13-Aug-2020 Status:Inactive Comments:15 MG Orally Once a day, 1 tablet Baclofen 10 MG Oral Tablet;10 MG Orally Three times a day prn, 1 tablet with food or milk Quantity:90 SARKIS Griffiths Start:02-Nov-2019 Comments:10 MG Orally Three times a day prn, 1 tablet with food or milk Gabapentin;100 MG Orally up to 3 times daily, 1-3 capsules Quantity:90 SARKIS Griffiths Start:06-Jul-2019 Status:Inactive Comments:100 MG Orally up to 3 times daily, 1-3 capsules Pregabalin ER;82.5 MG Orally Once a day, 2 tablets after the evening meal Quantity:60 SARKIS Griffiths Start:03-Jul-2019 Status:Inactive Comments:82.5 MG Orally Once a day, 2 tablets after the evening meal ferrous gluconate 324 MG Oral Tablet;324 (38 Fe) MG Orally Once a day, 1 tablet with water or juice between meals Quantity:90 SARKIS Griffiths Start:11-Jun-2019 Comments:324 (38 Fe) MG Orally Once a day, 1 tablet with water or juice between meals Flomax;0.4 MG Orally Once a day, 1 capsule Quantity:90 SARKIS Griffiths Comments:0.4 MG Orally Once a day, 1 capsule Lyrica CR;82.5 MG Orally Once a day, 2 tablets after the evening meal SARKIS Griffiths Status:Inactive Comments:82.5 MG Orally Once a day, 2 tablets after the evening meal NexIUM 40 MG Delayed Release Oral Capsule;40 MG Orally Once a day, 1 capsule Quantity:30 SARKIS Griffiths Comments:40 MG Orally Once a day, 1 capsule 24 HR Propranolol Hydrochloride 80 MG Extended Release Oral Capsule;80 MG Orally Once a day, 1 capsule Quantity:30 SARKIS Griffiths Status:Inactive Comments:80 MG Orally Once a day, 1 capsule ZyrTEC (cetirizine dihydrochloride 10 MG) Oral Tablet;10 MG Orally Once a day, 1 tablet Quantity:30 SARKIS Griffiths Comments:10 MG Orally Once a day, 1 tablet ivabradine 5 MG Oral Tablet [Corlanor];5 MG Orally Twice a day, 1 tablet with meals Quantity:60 SARKIS Griffiths Comments:5 MG Orally Twice a day, 1 tablet with meals benzonatate 200 MG Oral Capsule;benzonatate 1 capsule by mouth three times a day as needed PRN Kong Luong Status:Inactive Unknown Medication;Unknown Medication Comments:Unknown Medication Zithromax Z-Ravi;Zithromax Z-Ravi tablets by mouth daily Kong Luong Status:Prior History ondansetron 8 MG Disintegrating Oral Tablet;ondansetron 1 tablet by mouth three times a day as needed PRN Harmony Pena propranolol hydrochloride 80 MG Oral Tablet [Cardinol];propranolol 80 mg tablet , amoxicillin 875 MG / clavulanate 125 MG Oral Tablet [Augmentin];Augmentin 1 tablet by mouth twice a day Kong Luong Status:Inactive cetirizine hydrochloride 10 MG Oral Tablet;Zyrtec 10 mg tablet , Kong Luong Social History Smoking Status Never smoked tobacco Recorded: 17-Jan-2024 Never smoked tobacco Recorded: 07-Jul-2022 Never smoked tobacco Recorded: 06-Jan-2022 Never smoked tobacco Recorded: 19-Mar-2021 Results CBC AUTO DIFF/MAN IF INDICATED Ordered On:17-Jan-2024 23:51 BASOPHIL %1% BASOS ABSOLUTE0.110*3/uL(Normal) Range:010*3/uL-0.110*3/uL EOSINOPHIL %2% EOSINOPHILS ABSOLUTE0.110*3/uL(Normal) Range:010*3/uL-0.510*3/uL CYPOPOBEUS88.2%(Low) Range:38.4% -50.8% CNRMBNLXSY66.2g/dL(Low) Range:13 .5g/dL-16.5g/dL IMMATURE GRAN #0.010*3/uL(Normal) Range:010*3/uL-0.210*3/uL IMMATURE GRAN %0%(Normal) Range: 0%-1.5% Comments:Immature granulocytes (promyelocytes, myelocytes, andmetamyelocytes) >1.5% indicates that a left shift ispresent. Bands are included in the automated neutrophilcount and not in the IG fraction. LYMPHOCYTE %44% LYMPHOCYTE ABSOLUTE2.410*3/uL(Normal) Range:0.810*3/uL-410*3/uL MEAN CELL HGB22.6pg(Low) Range:2 8.3pg-33.7pg MEAN CELL HGB GZUAZQGNRIYW63.9g/dL(Low) Range:31.9g/dL-36.1g/dL MEAN CELL QVPFDN01.1fL(Low) Rang e:81.8fL-97.9fL MONOS ABSOLUTE0.610*3/uL(Normal) Range:0.310*3/uL-1.210*3/uL MONOCYTE %11% MEAN PLATELET VOLUME9.9fL(Normal) Range:9.4fL-12.4fL NEUTROPHILS ABSOLUTE2.310*3/uL(Normal) Range:2.310*3/uL-7.810*3/uL NEUTROPHIL %41% ZVOXBZNR73321*3/uL(Normal) Range :56370*3/uL-54434*3/uL RED BLOOD CELL4.9510*6/uL(Normal) Range:4.110*6/uL-5.810*6/uL RDW17.5%(High) Range:11.9%-15.1 % WHITE BLOOD CELL5.510*3/uL(Normal) Range:4.110*3/uL-11.110*3/uL LACTIC ACID Ordered On:17-Jan-2024 00:04 LACTIC ACID1.1mmol/L(Normal) Range:0.5mmol/L-2mmol/L CBC AUTO DIFF/MAN IF INDICATED Ordered On:01-Sep-2023 14:11 BASOPHIL %1% BASOS ABSOLUTE0.010*3/uL(Normal) Range:010*3/uL-0.110*3/uL EOSINOPHIL %1% EOSINOPHILS ABSOLUTE0.110*3/uL(Normal) Range:010*3/uL-0.510*3/uL PNAQLERIWO53.8%(Low) Range:38.4% -50.8% HEMOGLOBIN9.5g/dL(Low) Range:13. 5g/dL-16.5g/dL IMMATURE GRAN #0.010*3/uL(Normal) Range:010*3/uL-0.210*3/uL IMMATURE GRAN %0%(Normal) Range: 0%-1.5% Comments:Immature granulocytes (promyelocytes, myelocytes, andmetamyelocytes) >1.5% indicates that a left shift ispresent. Bands are included in the automated neutrophilcount and not in the IG fraction. LYMPHOCYTE %35% LYMPHOCYTE ABSOLUTE1.610*3/uL(Normal) Range:0.810*3/uL-410*3/uL MEAN CELL HGB24.2pg(Low) Range:2 8.3pg-33.7pg MEAN CELL HGB FWVXJYAZHCJS60.8g/dL(Low) Range:31.9g/dL-36.1g/dL MEAN CELL WFHRGR51.6fL(Low) Rang e:81.8fL-97.9fL MONOS ABSOLUTE0.410*3/uL(Normal) Range:0.310*3/uL-1.210*3/uL MONOCYTE %10% MEAN PLATELET VOLUME9.5fL(Normal) Range:9.4fL-12.4fL NEUTROPHILS ABSOLUTE2.410*3/uL(Normal) Range:2.310*3/uL-7.810*3/uL NEUTROPHIL %53% LLLUKRNT22843*3/uL(Normal) Range :82696*3/uL-20075*3/uL RED BLOOD CELL3.9210*6/uL(Low) Range:4.110*6/uL-5.810*6/uL RDW14.8%(Normal) Range:11.9%-15. 1% WHITE BLOOD CELL4.410*3/uL(Normal) Range:4.110*3/uL-11.110*3/uL METABOLIC COMPREHENSIVE PANEL Ordered On:23-May-2024 28-May-2024 18:07 ALBUMIN3.5g/dL(Normal) Range:3 .5g/dL-4.8g/dL ALKALINE PHOSPHATASE TYLXC61D/L(Normal) Range:45U/L-132U/L SGPT/ALT21U/L(Normal) Range:12U/ L-78U/L SGOT/AST11U/L(Normal) Range:10U/ L-45U/L BILIRUBIN TOTAL0.3mg/dL(Normal) Range:0mg/dL-1mg/dL BLOOD UREA KMPIQSAF65nb/dL(Normal) Range:6mg/dL-22mg/dL CALCIUM8.6mg/dL(Normal) Range:8. 5mg/dL-10.1mg/dL KLPZOYII128zopa/L(Normal) Range: 100mmol/L-108mmol/L CARBON JDHUYVG82hcbc/L(Normal) Range:21mmol/L-32mmol/L CREATININE1.0mg/dL(Normal) Range :0.5mg/dL-1.3mg/dL ANION GAP13(Normal) Range:12-21 GLOMERULAR FILTRATIO N RATE94.6 Range:60-0 Comments:The Glomerular Filtration Rate is a calculated parameterbased on serum Creatinine levels, patient age, and sex. GFRvalues less than 60 mL/min/1.73 square meters are indicativeof Chronic Kidney Disease. Values less than 15 mL/min/1.73square meters indicate Kidney failure.The calculation for GFR is based on the CKD-EPI(2021)calculation. This formula is race indifferent and is therecommended formula for GFR by the National KidneyFoundation for adults. GLUCOSE LGNCVH75xc/dL(Normal) Range:70mg/dL-99mg/dL POTASSIUM3.9mmol/L(Normal) Range :3.6mmol/L-5.2mmol/L MGYUET404rzji/L(Normal) Range:13 5mmol/L-146mmol/L TOTAL PROTEIN6.9g/dL(Normal) Range:6.5g/dL-8.2g/dL CORRECTED CALCIUM9.0mg/dL(Normal) Range:8.5mg/dL-10.1mg/dL Comments:CALCIUM CORRECTED FOR ALBUMIN FERRITIN Ordered On:01-Sep-2023 18:07 FERRITIN2.5ng/mL(Low) Range:28 ng/mL-365ng/mL SOLUBLE TRANSFERRIN RECEPTOR Ordered On:06-Sep-2023 18:07 SOLUBLE TRANSFERRIN GCVZSCEX20.9nmol/L(Abnormal ) Range:12.2nmol/L-27.3nmol/L Comments:Performed At: [facility] [id number] Echevarria MD Ph:[phone] FE W/TIBC %SAT Ordered On:01-Sep-2023 14:47 SERUM NWGY20ve/dL(Low) Range:3 5ug/dL-150ug/dL IRON SATURATION4.5%(Low) Range:1 8%-50% TOTAL IRON BINDING HYVKRKEQ133bj/dL(Normal) Range:280ug/dL-450ug/dL FERRITIN Ordered On:01-Sep-2023 18:06 FERRITIN2.5ng/mL(Low) Range:28 ng/mL-365ng/mL SOLUBLE TRANSFERRIN RECEPTOR Ordered On:06-Sep-2023 18:06 SOLUBLE TRANSFERRIN XFJMANWZ20.9nmol/L(Abnormal ) Range:12.2nmol/L-27.3nmol/L Comments:Performed At: [address] [id number] Echevarria MD Ph:[phone] Vital Signs 18-Jan-2024 01:22 Pulse75 Comments:75 Respiratory Rate16 Comments:16 O2 SAT98% Comments:98 BP Ztuwvdjg380uh[Hg] Comments:11 9 BP Dypxfszjy06ir[Hg] Comments:75 18-Jan-2024 00:45 Pulse65 Comments:65 O2 SAT94% Comments:94 18-Jan-2024 Pulse59 Comments:59 O2 SAT96% Comments:96 BP Opigtzgh707qs[Hg] Comments:14 5 BP Ogqrsrxzg94ai[Hg] Comments:75 17-Jan-2024 23:25 Pulse83 Comments:83 O2 SAT99% Comments:99 BP Zzaphghg742ai[Hg] Comments:14 3 BP Nuzfyfhjf74gv[Hg] Comments:88 17-Jan-2024 23:10 Lcvfiloinqd22.5c Comments:36.5 Pulse81 Comments:81 Respiratory Rate18 Comments:18 O2 SAT99% Comments:99 BP Haeydilq941sc[Hg] Comments:14 2 BP Gkntzhanw83xh[Hg] Comments:78 17-Jan-2024 23:10 Rshblcmfzpj58.5c Comments:36.5 Pulse81 Comments:81 Respiratory Rate18 Comments:18 O2 SAT99% Comments:99 BP Hprnpbgd191ok[Hg] Comments:14 2 BP Empsjeavc13vo[Hg] Comments:78 17-Jan-2024 23:05 Ytasimkdiim17.5c Comments:36.5 Pulse86 Comments:86 Respiratory Rate16 Comments:16 O2 SAT98% Comments:98 BP Qcgaoezb040om[Hg] Comments:14 2 BP Blitigsoj65mh[Hg] Comments:78 Height6.19799434[ft_us] Comments :6 Xubmyj69.455kg Comments:95.455 17-Jan-2024 23:05 BMI27.7kg/m2 Comments:27.7 Encounters Emergency Encounter Reason:HYPOTENSION, END-STAGE RENAL DISEASE, DEHYDRATION Encounter Diagnosis:Nausea with vomiting, unspecified,Cervicalgia,Headache, unspecified 17-Jan-2024 23:[id number]-[id number] 01:06 Edgard Tim DO (Attending) [facility] Discharge Disposition:Discharged to home or self care (routine discharge) Kemal Griffiths MD-18-Jan-2024 [facility] ([facility])EMERGENCY PROVIDER REPORTREPORT#:[id number] REPORT STATUS: SignedDATE:01/18/24 TIME: 0105PATIENT: ANDREW CAMARGO UNIT #: [id number]#: [id number] ROOM/BED:AGE: 48 SEX: M PCP PHYS: Gissel Hunter MDSERVICE AUTHOR: Mita Sommer MDREP SRV REP SRV TM: 0105* ALL edits or amendments must be made on the electronic/computer document *HPI-HeadacheGeneralInitial Greet Date/Time 01/17/24 2332PresentationChief Complaint HeadacheSudden in Onset? NoPain/Sev: Onset ModeratePain/Sev: Current ModerateFree Text HPI NotesFree Text HPI NotesPatient states he has a history of migraines and he gets bad migraines about 3or 4 times a year but the said he usually does not have them this bad.When he gets him he does vomit a great deal. He just can not stop. He doeshave Zofran at home usually Phenergan helps but they are out of Phenergan. Havechiropractic adjustment. And they finally put 2 and 2 together and realizethat his chiropractic adjustments were causing migraines . He says he has notgone for a long time so he had forgotten that and then he got a just yesterdayand had a migraine today. He says it is said the base of the skull which itusually is. 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 Currently they are packing their house to move again [place]. He denies any numbness or weakness in theextremities. He denies any blurry vision.Risk- HeadacheRisk StratificationStroke Risk factors reviewed)( Subarachnoid Hemorrhage Risk factors reviewed)( IC Mass Lesion Risk factors reviewedReview of SystemsFocused Review of SystemsConstitutionalDenies: Chills, Fatigue, Fever.EyesDenies: Blurred bilat, Discharge bilat, Eye pain bilat, Redness bilat, Swellingbilat.Ears/Nose/ThroatDenies: Nasal congestion, Sinus problem, Sore throat, Throat pain.GIReports: Nausea, Vomiting. Denies: Abdominal pain, Constipation, Diarrhea.MusculoskeletalReports: Neck pain. Denies: Back pain, Extremity pain, Extremity swelling,Thoracic pain.SkinDenies: Erythema, Itching, Jaundice, Rash, Swelling.NeurologicReports: Headache. Denies: Change LOC, Confusion, Dizziness, Focal weakness,Generalized weakness, Lightheaded, Numbness, Problem walking, Slurred speech,Spinning sensation, Syncope.Past Medical History - AdultStated Complaint HYPOTENSION, END-STAGE RENAL DISEASE, DEHYDRATIONAllergiesCoded Allergies:No Known Drug Allergies (NKDA 01/17/24)pseudoephedrine (From SUDAFED) (Intermediate, HIGH BP 01/17/24)propranolol (Mild, WACKY HEART RATE 01/17/24)Home MedicationsActive ScriptsdiphenhydrAMINE (BENADRYL) 25 MG PO Q6H diphenhydrAMINE (BENADRYL) 25 MG PO Q6H #25 CAP Prov: 01/06/22Discontinued ScriptspredniSONE 50 MG PO DAILY predniSONE 50 MG PO DAILY #50 TAB Prov: 01/06/22 DC: 01/17/24 2349 Changed/DC prior to admitReported MedicationsIVABRADINE HCL (CORLANOR)ESOMEPRAZOLE (NexIUM)Discontinued Reported MedicationsPREGABALIN (LYRICA) 75 MG PO BIDPhysical ExamVital SignsVital SignsFirst Documented: Result Date Time Pulse Ox 98 01/16 2305 B/P 142/78 01/16 2305 B/P Mean 99 01/16 2305 O2 Delivery Room air 01/16 2305 Temp 36.5 01/16 230 Pulse 86 01/16 2305 Resp 16 01/16 2305Last Documented: Result Date Time Pulse Ox 94 01/17 0045 Pulse 65 01/17 0045 B/P 145/75 01/17 0000 B/P Mean 104 01/17 0000 O2 Delivery Room air 01/16 2310 Temp 36.5 01/16 2310 Resp 18 01/16 231Review of Vital Signs Reviewed, Vital signs normalFocused PEGeneral/Const General/Const Awake, Alert, No acute distress, Well appearing, Well developed, Well hydrated, Well nourished, CooperativeMS Head Text/Dict NotesTender at the occiput. No tenderness anteriorly in the neckEyes Eyes Atraumatic, PERRL, EOMI, No nystagmus, No periorbital redness, Noperiorbital swelling Text/Dict NotesPhotophobicEars/Nose/Throat Ears/Nose/Throat Atraumatic, Airway patent, Mucous membranes moist, PharynxNLMS Neck Neck Supple, No adenopathy, No swelling, Non-tender, No midline vertebraltend, No carotid bruit, No tracheal deviationResp/Chest Respiratory/Chest Breath sounds NL, No respiratory distress, No rales, Norhonchi, No wheezing Text/Dict NotesHyperventilatingCardiovascular Cardiovascular Heart rate NL, Heart sounds NL, No murmurs, No rubs, Caprefill not delayed, Peripheral circulation NLAbdomen/GI Abdomen/GI Soft, Non-tender, BS normoactiveSkin Skin Color NL, No rash, Warm, Dry, IntactNeurologic Neurologic Oriented X3, Speech NL, No motor deficits, No sensory deficits, CNII - XII intact, Reflexes equal bilat, Cerebellar NLPsychiatric Abnormal Mood/Affect Anxious (Hyperventilating).Interpretation DiagnosticsLab Results InterpretationResultsLaboratory Tests01/17/242332:[Embedded Image Not Available]Laboratory Tests: 01/16 2333 Chemistry Lactic Acid (0.5 - 2.0 MMOL/L) 1.1 Hematology WBC (4.1 - 11.1 x10 3/uL) 5.5 RBC (4.10 - 5.80 x10 6/uL) 4.95 Hgb (13.5 - 16.5 g/dL) 11.2 L Hct (38.4 - 50.8 %) 36.2 L MCV (81.8 - 97.9 fL) 73.1 L MCH (28.3 - 33.7 pg) 22.6 L MCHC (31.9 - 36.1 g/dL) 30.9 L RDW (11.9 - 15.1 %) 17.5 H Plt Count (126 - 335 x10 3/uL) 318 MPV (9.4 - 12.4 fL) 9.9 Immature Gran % (Auto) (0.0 - 1.5 %) 0 Neut % (Auto) (%) 41 Lymph % (Auto) (%) 44 Dunn % (Auto) (%) 11 Eos % (Auto) (%) 2 Baso % (Auto) (%) 1 Immature Gran # (Auto) (0.0 - 0.2 x10 3/uL) 0.0 Absolute Neuts (auto) (2.3 - 7.8 x10 3/uL) 2.3 Absolute Lymphs (auto) (0.8 - 4.0 x10 3/uL) 2.4 Absolute Monos (auto) (0.3 - 1.2 x10 3/uL) 0.6 Absolute Eos (auto) (0.0 - 0.5 x10 3/uL) 0.1 Absolute Basos (auto) (0.0 - 0.1 x10 3/uL) 0.1 Lab StatementLaboratory studies reviewed and considered in the medical decision-making.Re-Evaluation MDMFree Text MDM NotesFree Text MDM NotesPatient was given Compazine and Benadryl. His headache completely resolved.Therefore I did not CT angio and I am looking for arterial dissection. He sayshe has had this before and this is the same way it has been before it just notthis bad. I did refill Phenergan for home. I also educated them on takingBenadryl with it if needed. I recommend he not get chiropractic adjustments ofhis neck but they can do 10s unit as well as ice and heat. If his symptomsreturn he knows he needs to return again for re-evaluation)( Re-Evaluation/Progress #1Time of Re-Eval 0100)( Re-Eval Status ResolvedED CourseMedication(s) OrderedMedication(s) Ordered:Antihistamine Drugs Sig/Lacey Start time Last Medication Dose Route Stop Time Status Admin Diphenhydramine HCl 25 MG 1XED ONE 01/16 2339 DC 01/16 IV 01/17 2340 2347Central Nervous System Agents Sig/Lacey Start time Last Medication Dose Route Stop Time Status Admin Ketorolac 30 MG 1XED ONE 01/16 2339 DC 01/16 Tromethamine IV 01/16 2340 2347Gastrointestinal Drugs Sig/Lacey Start time Last Medication Dose Route Stop Time Status Admin Prochlorperazine 10 MG 1XED ONE 01/16 2338 DC 01/16 Edisylate IV 01/16 2339 2347Differential Diagnosis)( Differential Diagnosis Carotid artery dissection, Cerebellar ischemia, Closedhead injury, Cerebrovascular accident, Fever-induced, Headache, Headache,hypertensive, Headache, migraine, Headache, post-traumatic, Hemorrhage,cerebellar, Hemorrhage, epidural, Hemorrhage, intracerebral, Hemorrhage,subarachnoid, Hemorrhage, subdural, Pseudotumor cerebri, Sinusitis, Temporalarteritis, TMJ syndrome, Vertebrobas insufficiency, Arterial dissectionPatient Discharge DepartureVital Signs/ConditionVital SignsFirst Documented: Result Date Time Pulse Ox 98 01/16 2305 B/P 142/78 01/16 2305 B/P Mean 99 01/16 2305 O2 Delivery Room air 01/16 2305 Temp 36.5 01/16 2305 Pulse 86 01/16 2305 Resp 16 01/16 2305Last Documented: Result Date Time Pulse Ox 94 01/17 0045 Pulse 65 01/17 0045 B/P 145/75 01/17 0000 B/P Mean 104 01/17 0000 O2 Delivery Room air 10/08 2310 Temp 36.5 01/16 2310 Resp 18 01/16 2310All vital signs available at the time of this entry have been reviewed.Condition ImprovedClinical ImpressionClinical ImpressionPrimary Impression: HeadacheTime of Impression 0106Disposition DecisionDischarge )( Discharged to Home Yes )( Time 0106 )( Date 01/18/24Discharge/Care PlanCounseled Regarding Diagnosis, Lab results, Imaging studies, Need for follow-up,When to return to ED(Auto) PrescriptionsCurrent Visit ScriptsPROMETHAZINE (PHENERGAN) 25 MG PO Q6H PRN PRN Nausea PROMETHAZINE (PHENERGAN) 25 MG PO Q6H PRN PRN Nausea #30 TABPatient Instructions Self-Care for HeadachesAdditional InstructionsPush clear liquids. At the onset of headache in the future you can takePhenergan and Benadryl together and rest. You can use Zofran with this as well. However if your headache worsens then return immediately for re-evaluation.ReferralsProvider Referral: Gissel Hunter MD Address: [address] [place] [address] [address] [place], [place] [address]Hymjferad FormsAdditional Information/NoticesMy Health OneSuicide Risk PreventionQualifiers Headache Headache type: unspecified Headache chronicity pattern: acute headacheIntractability: not intractable Qualified Code: R51.9 - Headache, unspecified at 0121RPT #: [id number] OF REPORT pre-admission Encounter Reason:FOLLOW UP 15-Sep-2023 14:20 Mai Tim MD (Attending) [facility] 01-Sep-2023 15:35 Mai Tim MD (Attending) [facility] Ambulatory Encounter Reason:LAB Encounter Diagnosis:Iron deficiency anemia secondary to blood loss (chronic) 01-Sep-2023 14:88Qp03-Ory-1405 14:09 Mai Tim MD (Attending) [facility] Discharge Disposition:Discharged to home or self care (routine discharge) Ambulatory 09-Sep-2022 14:40 Mai Tim MD (Attending) [facility] 07-Jul-2022 20:06 Kalyn Tim MD (Attending) [facility] 01-Apr-2022 19:32 [facility] pre-[facility]mission 16-Mar-2022 13:40 Mai Tim MD (Attending) [facility] 11-Mar-2022 16:01 Mai Tim MD (Attending) [facility] 16-Dec-2021 20:22 UNKNOWN (Attending) [facility] 13-Aug-2021 15:05 Mai Tim MD (Attending) [facility] P 13-Aug-2021 13:40 Mai Tim (Attending) [facility] pre-admission 03-Aug-2021 14:00 Mai Tim MD (Attending) [facility] 03-Aug-2021 14:00 Mai Tim (Attending) [facility] Ambulatory 26-Jan-2021 16:37 Mai Tim MD (Attending) [facility] pre-admission 25-Dec-2020 13:15 Mai Tim MD (Attending) [facility] 25-Dec-2020 13:15 Mai Tim (Attending) [facility] Ambulatory 26-May-2020 16:17 UNKNOWN (Attending) [facility] pre-admission 01-Nov-2019 15:00 Mai Tim MD (Attending) [facility] 11-Oct-2019 17:57 Mai Tim MD (Attending) [facility] Amb[facility] 08-Jun-2019 19:46 UNKNOWN (Attending) [facility] Ambulatory 06-Jun-2019 HARMONY PENA (Attending) [facility] Ambulatory 16-Apr-2019 HARMONY PENA (Attending) [facility] pre-admission 21-Mar-2019 16:00 [facility] 21-Feb-2019 KONG LUONG (Attending) [facility] 08-Jan-2019 KONG LUONG (Attending) [facility] Plan of Treatment Push clear liquids. At the onset of headache in the future you can take Phenergan and Benadryl together and rest. You can use Zofran with this as well. However if your headache worsens then return immediately for re-evaluation. Future Tests Future scheduled test information is unavailable Pending Tests Pending diagnostic test information is unavailable Future Visits Future appointment information is unavailable Referrals to Other Providers Reason for Referral Referral Start Date Provider Provider Contact Information Provider Address Gissel Hunter MD Work Phone: [address] [address] Gissel Hunter MD Work Phone: [address] [address] Jodee Parrish DO Work Phone: [address] [address] Cardiology Work Phone: [phone] [facility] [id number] [place] [address] Work Phone : [phone] [facility] [phone] Future Procedures Future procedure information is unavailable Future Medications Future medication information is unavailable Patient Instructions Instruction Admit Date Self-Care for Headaches January 16 11:05pm ED General Allergic Reactions June 1:56pm ED Medicine Reaction: Allergic January 06, 2022 5:25pm ED Bradycardia March 19, 2021 9 :12am Assessments Diagnosis Onset Date Resolution Status Admit Date Headache Active January 16 11:05pm
--- OUTSIDE RECORDS SUMMARY | 2024-07-26 07:43 | XMS_ITS | Patient Health Record ---
Author Organization [facility] Address [address] [place] [address] Care Team Providers Care Marketing Business Analyst Name Role Phone Alex Ivy MD Unavailable Unavailable Reason For Referral No Information Medications Medication SIG (Take, Route, Frequency, Duration) Notes Start Date End Date Status Lyrica 75 mg 1 capsule Orally BID for 30 days 06/30/2018 Active Propranolol HCl *Pick strength-f orm from [employer] for eRX* Active NexIUM *Pick strength-f orm from [employer] for eRX* Active Nortriptyline HCl *Pick strength -form from [employer] for eRX* Active ZyrTEC *Pick strength-f orm from [employer] for eRX* Active Problems Problem Type SNOMED Code ICD Code Onset Dates Problem Status W/U Status Risk Notes Problem 33697733 Other chronic pain (G89.29) Active confirmed Problem 105797320 Lumbago with sciatica, left side (M54.42) Active confirmed Problem 459590490 Idiopathic neuropathy (G60.9) Active confirmed Problem 50470838 Disc degeneration, lumbar (M51.36) Active confirmed Plan Of Treatment No Information Insurance Providers Payer Name Payer Address Payer Phone Subscriber Number Group Number Insured Name Patient Relationship to Insured Coverage Start Date Coverage End Date [employer] [address] [place] [address] [id number] Ronny Henderson Self - patient is the insured Medical (General) History Medical History History ICD Code Abnormal heart beat Heartburn/Acid Reflux(GERD) depression Surgical History Surgery Date(Month/Year) gallbladder Heart Surgery
--- OUTSIDE RECORDS SUMMARY | 2024-07-26 07:43 | XMS_ITS | Data Portability ---
Author Organization [facility], Main Office Address [address] [place] [address] Care Team Providers Care Residential Lawn Specialist Name Role Phone [facility]NAG[facility] Primary Care Provi ede Assessment No assessment recorded. Plan of Treatment Reminders Order Date Submit Date Provider Last Modified By Organization Details Last Modified Time Details Appointments None recorded. Lab None recorded. Referral None recorded. Procedures None recorded. Surgeries None recorded. Imaging None recorded. Medication Orders Botox 100 unit injection 2023 024 [facility], [address] [place] [address], [place], [address], 15:54:10 Patient TargetsNo targets recorded. Patient Instructions Encounter Date Encounter Id Patient Instructions Last Modified By Organization Details Last Modified Time 10/03/2023 [id number] we will bring hi m back for Botox injections Not available 10/03/2023 14:52:00 10/27/2023 [id number] units of Boto x were infiltrated into each masseter muscle. Not available 10/27/2023 15:53:10 02/09/2024 [id number] Botox 10 units per side were infiltrated into the masseter muscle Not available 02/09/2024 17:14:33 05/03/2024 [id number] 25 units of Boto x was injected into the masseter muscle bilaterally Not available 05/03/2024 17:06:32 Reason for Referral None Reported. Problems Name Problem SNOMED Code Status Onset Date Resolution Date Notes Provider Name and Address Organization Details Recorded Time Arthralgia of temporomand ibular joint 77392319 Active 2023 French Merlos MD [address] [place], [place] [address], [address], [place], [address], [facility] [employer] [facility] 4 14:51:44 Bilateral temporomand ibular joint arthritis 9959240980122 9103 Active 2023 French Merlos MD [address], [address], [place], [address], [facility] [employer] [facility] 4 15:52:31 Problem Notes None recorded. Medical Equipment None Reported. Allergies Allergen ID Allergen Name Allergen Category Reaction Reaction Severity Criticality Documentation Date Start Date Code Code System Note Provider Name and Address Organization Details Recorded Time [address]21 propranol ol medicatio n dizziness Not available Not available 09/29/2023 8787 RxNorm kelly bayrony Jennifer Luo null, [facility] [employer] [facility] 4 15:10:09 Medications Name Sig Start Date Stop Date Status Note LastModified by Organization Details LastModified Time nystatin 100,000 unit/mL oral suspensio n active Not Available Not Available Not Available meloxicam 15 mg tablet active Not Available Not Available Not Available sucralfat e 1 gram tablet active Not Available Not Available Not Available metronida zole 250 mg tablet active Not Available Not Available No t Available famotidin e 20 mg tablet active Not Available Not Available Not Available esomepraz ole magnesium 40 mg capsule,d elayed release active Not Available Not Available Not Available promethaz ine 25 mg tablet TAKE ONE TABLET BY MOUTH EVERY 6 HOURS NEEDED FOR NAUSEA active Not Available Not Available No t Available gabapenti n 300 mg capsule active Not Available Not Available Not Available cefdinir 300 mg capsule active Not Available Not Available Not Available amoxicill in 875 mg-potass ium clavulana te 125 mg tablet TAKE 1 TABLET BY MOUTH EVERY 12 HOURS FOR 1 WEEK active Not Available Not Available No t Available Botox 100 unit injection Take 20 units by injectio n route. 2023 active Not Available Not Available Not Avai lable Nexium active Not Available Not Availa ble Not Available Botox Cosmetic 50 unit intramusc ular solution Inject 20 units by intramus cular route. [address] Nidhi culver injected 10 units of Botox into each masseter muscle on 10/27/23 at 2:45pm. Not Available Not Available Not Available Corlanor 5 mg tablet active Not Available Not Available Not Available Corlanor 02/08 completed Not Available Not Available Not Available Vitals Date Recorded Body weight Body mass index (BMI) Body height Body temperature Provider Name and Address Organization Details Last Updated DateTime 10/03/2023 63170.77 g 28.2 kg/m2 185.42 cm 97.8 [degF] Gissel Richardson RN [facility] 10/03/2023 14:35:05 Date Recorded Body height Body mass index (BMI) Body weight Body temperature Provider Name and Address Organization Details Last Updated DateTime 10/27/2023 185.42 cm 28.1 kg/m2 94845.46 g 97.7 [degF] [facility] 10/27/2023 15:06:31 Date Recorded Body height Body mass index (BMI) Body weight Body temperature Provider Name and Address Organization Details Last Updated DateTime 02/09/2024 185.42 cm 28.4 kg/m2 66633.36 g 98 [degF] Gissel Richardson RN [facility] 02/09/2024 16:52:41 Date Recorded Body height Body mass index (BMI) Body weight Provider Name and Address Organization Details Last Updated DateTime 05/03/2024 185.42 cm 28.8 kg/m2 85835.14 g Gissel Richardson RN [facility] [employer] 05/03/2024 17:01:22 Social History Question Answer Notes LastModified by Organizat ion Details LastModified Time Tobacco Smoking Status Never Smoker Jennifer Valerio byrd, [facility] [employer] 09/29/2023 15:11:32 What Is Your Level Of Alcohol Consumption? Moderate Information not available 09/29/2023 Sex: Unknown Functional Status None recorded. Mental Status None recorded. Family History Relationship Description Onset Age of this Age Resolved Age Notes LastModified by Organization Details LastModified Time Father No current problems or disability [email or web address] Not available 10/02 14:33:35 Mother No current problems or disability [email or web address] Not available 10/02 14:33:35 Notes:no ent Medical History Condition Response HEART DISEASE/HEART PROBLEMS Y Past Encounters Encounter ID Performer Location Encounter Start Date Encounter Closed Date Diagnosis/Indication Diagnosis SNOMED-CT Code Diagnosis ICD10 Code Diagnosis Note [id number] French Merlos MD [facility] [address] [place] [address] 10/03/2023 14:28:38 10/03/2023 16:24:44 Arthralgia of temporomandibular joint 07819217 M26.758 [id number] MD [facility] [address] [place] [address] 10/27/2023 15:00:25 11/02/2023 13:33:21 Bilateral temporomandibular joint arthritis 1242978331 9834695 M26.495 [id number] French Merlos MD [facility] [address] [place] [address] 02/09/2024 16:50:31 03/07/2024 09:35:55 Arthralgia of temporomandibular joint 63866115 M26.629 Bilateral temporomandibular joint arthritis 0245115467 6478783 M26.869 [id number] French Merlos MD [facility] [address] [place] [address] 05/03/2024 16:50:34 05/08/2024 10:44:15 Bilateral temporomandibular joint arthritis 1091032308 7783602 M26.643 Health Concerns Section Related Observation LastModified by Organization Detai ls LastModified Time None Recorded Concern Status LastModified by Organization Details LastModified Time None Recorded Advance Directives Directive None Recorded Payers Encounter Date Sequence Insurance Name Policy Number Policy Love Covered Member ID Love Member ID Guarantor Name 10/03/2023 1 [employer] - [employer] PRIOR TO 2024 - [employer] () Ronny Nik Henderson [id number] Ronny Henderson 10/27/2023 1 [employer] - [employer] PRIOR TO 2024 - [employer] () Ronny Harpere [id number] Ronny Harpere 02/09/2024 1 [employer] - [employer] PRIOR TO 2024 - [employer] () Ronny Harpere [id number] Ronny Harpere 05/03/2024 1 [employer] - [employer] PRIOR TO 2024 - [employer] () Ronny Henderson [id number] Ronny Henderson Notes Date Note Type Note Provider Name and Address Organization Details Recorded Time 10/03/2023 text/html this patient has bruxism and has bilateral TMJ arthralgia. He has been helped by Botox injections. He has not had fluoroscopy. He does wear a mouth guard. French Merlos MD [address], [place], [address], [employer] [facility] [employer] 10/03/2023 14:52:25 10/27/2023 text/html This patient has TMJ arthralgia which has been successfully treated with Botox. He is here for Botox. French Merlos MD [address], [address], [place], [address], [employer] 10/27/2023 15:53:55 02/09/2024 text/html this patient has done well with Botox for his TMJ arthralgia. French Merlos MD [address], [place], [address], [employer] 02/09/2024 17:14:51 05/03/2024 text/html this patient is here for Botox treatment for TMJ arthritis French Merlos MD [address], [place], [address], [employer] 05/03/2024 17:06:51
--- OUTSIDE RECORDS SUMMARY | 2024-07-26 07:43 | XMS_ITS | Patient Health Record ---
Author Organization [facility] Address [address] [place] [address] Care Team Providers Care Ediphone Operator Name Role Phone Undecided, Undecided Primary Care Provider Unava Anthony Camarena Unavailable [phone] Zach Bynum MD Unavailable Unavailable Allergies No Known Allergies Reason For Referral No Information Medications Medication SIG (Take, Route, Frequency, Duration) Notes Start Date End Date Status ZyrTEC Allergy 10 MG Oral Active Propranolol HCl ER 80 MG Oral Active NexIUM 40 MG take 1 capsule (40 m g) by oral route once daily Oral 1 Active Immunizations Vaccine Route Administration Date Status Comme nts Influenza Unknown 06/12/2020 Administered Social History Sex Assigned At : Social History Observation Description Sex Assigned At Male Problems Problem Type SNOMED Code ICD Code Onset Dates Problem Status W/U Status Risk Notes Problem 90047834 Other chronic pain (G89.29) Active confirmed Problem 44568307642215930 Injury of left peroneal nerve, subsequent encounter (S84.12XD) Active confirmed Problem 731379740197513 Complex regional pain syndrome type 2 of left lower extremity (G57.72) Active confirmed Plan Of Treatment No Information Insurance Providers Payer Name Payer Address Payer Phone Subscriber Number Group Number Insured Name Patient Relationship to Insured Coverage Start Date Coverage End Date [facility] [address] [place] [phone] [id number] Ronny Henderson Self - patient is the insured Medical (General) History Medical History History ICD Code Back pain; Labral Tear; Plantar fasciitis; Surgical History Surgery Date(Month/Year) Back surgery; 01/08/2019 Cholecstectomy; 2002 Knee surgery; 01/08/2019 left foot; 01/08/2019 Shoulder surgery; 01/08/2019 Hospitalization History Reason Date(Month/Year) see surgical history
--- OUTSIDE RECORDS SUMMARY | 2024-07-26 07:43 | XMS_ITS | Continuity of Care Document ---
Author Organization [facility] Address [address] [place] [address] Phone Care Team Providers Care Fire Extinguisher Mechanic Name Role Phone Alex Ivy MD Unavailable Unavailable Allergies, Adverse Reactions, Alerts Substance Reaction Status Criticality No Known Allergies Resolved No Inform ation Medications Medication Instructions Dosage Effective Dates (start - stop) Status Comments Nexium 40 mg capsule,delayed release - Active nortriptyline 50 mg capsule - Ac tive propranolol ER 160 mg capsule,24 hr,extended release - Active Zyrtec 10 mg tablet - Active Problems Condition Type Effective Dates (start - stop) Clini stefania Status Comments No Known Problems Procedures Procedure Date EST PATNT OV DTL EXAM X-RAY OF HEEL 2 VIEW MIN. Medications - Current Meds Documented Ap BMI - High With Follow Up Plan 16 Non Tobacco User EST PATNT,OV,PROB FOCUSED Medications - Current Meds Documented Ja POSTOP FOLLOW-UP VISIT01 Medications - Current Meds Documented De BMI - High With Follow Up Plan 15 Non Tobacco User POSTOP FOLLOW-UP VISIT01 Medications - Current Meds Documented No POSTOP FOLLOW-UP VISIT01 SCOPE,MENISC MED OR LAT KNEE ARTHROSC/SURG SCOPE,MENISC MED OR LAT KNEE ARTHROSC/SURG Medications - Current Meds Documented Se EST PATIENT VISITOV Medications - Current Meds Documented Au BMI - High With Follow Up Plan 15 Non Tobacco User NEW PATNT OV DTL EXAM RADIOL EXAM, KNEE 04/12 VWS Advance Directives Directive Yes / No Effective Date File Name No Information Encounters Encounter Description Practice Location Reason(s) For Visit Diagnoses Date Provider Providers Copied on Encounter [facility], [address] [place] [address], [id number], [place] tel:[phone] [facility] Lumbar disc herniationAcute bilateral low back pain without sciatica 7 Petty Johnson. [address] [place] [address], [id number] , [place]. tel:[phone] EST PATNT OV DTL EXAM [facility], [address] [place] [address], [id number], [place] tel:[phone] [facility] Left foot painAchilles tendon painNumbness and tingling of left legAcute midline low back pain with left-sided sciaticaWeakness of left footAcute left ankle pain 6 [place]. [address], [id number] , [place]. tel:[phone] Referring Provider: Alex Brock [address] [place] [address], [address] . tel:[phone] EST PATNT,OV,PROB FOCUSED [facility], [address] [place] [address], [id number], [place] tel:[phone] [facility] Follow Up of rt knee (chief complaint) Body mass index (BMI) 25.0-25.9, adultComplex tear of medial meniscus, current injury, right knee, subsequent encounter 6 [place]. [address], [id number] , [place]. tel:[phone] Referring Provider: Alex Brock [address] [place] [address] [address], [place], [address] . tel:[phone] [facility], [address] [place], [id number], [place] tel:[phone] [facility] Follow Up of rt knee (chief complaint) Encounter for other orthopedic aftercareOther tear of medial meniscus, current injury, right knee, subsequent encounter 6 Petty Johnson. [address], [address], [place], [place], [id number] , [place]. tel:[phone] Referring Provider: Alex Brock, [address] [place] [address] [address], [place], [address] . tel:[phone] [facility], [address] [place], [id number], [place] tel:[phone] [facility] Follow Up of rt knee (chief complaint) Body mass index (BMI) 25.0-25.9, adultEncounter for other orthopedic aftercare 5 [place]. [address], [id number] , [place]. tel:[phone] Referring Provider: Alex Brock, [address] [place] [address] [address], [place], [address] . tel:[phone] [facility], [address] [place] [address], [id number], [place] tel:[phone] [facility] Follow Up of rt knee (chief complaint) Medial meniscus tear, right, initial encounterEncounter for other orthopedic aftercare 5 [place]. [address], [id number] , [place]. tel:[phone] Referring Provider: Alex Brock, [address] [facility] [address], [place], [address] . tel:[phone] [facility], [address] [place] [address], [id number], [place] tel:[phone] [facility] Medial meniscus tear, right, initial encounter Feb-0 5 Alex. [address] [facility], [address], [place], [place], [id number] , [place]. tel:[phone] [facility], [address], [place], [place], [id number], [place] tel:[phone] [facility] No Information Feb-0 5 Ivymatt Johnson. [address] [facility], [address], [place], [place], [id number] , [place]. tel:[phone] Referring Provider: Alex Brock, [address] [place] [address], [place], [address] . tel:[phone] [facility], [address] [facility], [place], [place], [id number], [place] tel:[phone] [facility] No Information 5 [place]. [address] [facility], [address], [id number] , [place]. tel:[phone] Referring Provider: Alex Brock, [address] [place] [address], [place], [address] . tel:[phone] EST PATIENT VISITOV [facility], [address], [place], [place], [id number], [place] tel:[phone] [facility] Follow Up of rt knee (chief complaint) Acute meniscal tear, medial Sep-1 0 5 [place]. [address] [facility], [address], [place], [place], [id number] , [place]. tel:[phone] Referring Provider: Alex Brock, [address] [facility] [address], [place], [address] . tel:[phone] NEW PATNT OV DTL EXAM [facility], [address] [facility], [place], [place], [id number], [place] tel:[phone] [facility] rt knee (chief complaint) Knee osteoarthritisPain in joint involving lower leg 5 [place]. [address] [facility], [address], [place], [id number] , . tel:[phone] Referring Provider: Alex Brock [address] [place] [address] [address], [place], [address] . tel:[phone] Family History Family Member Type Diagnosis Age At Onset Brother Problem (finding) alcoholism Brother Problem (finding) depression Brother Problem (finding) drug dependency Immunizations Vaccine Date Status Comments Influenza, seasonal, injectable administered Note: Invalid docume nted admin date was . ; Source: Other Provider Payers Payer name Insurance type Covered green party ID Authoriza tion(s) No Information Social History Type Description Quantity Date Captured Comments Alcohol Use Details Unknown Caffeine Use Details Unknown Tobacco Use Status No Information Smoking Status No Information Sex Male Chief Complaint And Reason For Visit No Information Reason For Referral Reason For Referral No Information Plan Of Treatment Date Type Action Status Goal Dietary management education , guidance, and counseling completed Goal Dietary management education , guidance, and counseling completed Goal Dietary management education , guidance, and counseling completed Referral Referred To: Mason Hart MD [address] [facility]3] Ctr
[facility] [address] [place], [place], [phone] Ordered: Referrals: Orthopedic Surgery. Mason Hart MD. Location: [facility]. Evaluate and treat ordered History Of Present Illness Encounter Date Complaint History Of Prese nt Illness Follow Up of rt knee Follow Up of rt knee Follow Up of rt knee Follow Up of rt knee Follow Up of rt knee rt knee Functional Status Date Functional Assessmen t No Information Instructions Date Instruction Additional Infor david - Patient education available at www.[email or web address] on the Education tab Related to Acute left ankle pain - Medication refills must be requested before 4pm [place] through Tuesday Related to Acute left ankle pain - Patient education available at [employer] on the Education tab Related to Acute left ankle pain - Medication refills must be requested before 4pm Tuesday through Tuesday Related to Acute left ankle pain - Medication refills must be requested before 4pm Tuesday through Tuesday Related to Weakness of left foot - Patient education available at [employer] on the Education tab Related to Weakness of left foot Dietary management e ducation, guidance, and counseling Related to Body mass index (BMI) 25.0-25.9, adult - Patient education available at [employer] on the Education tab Related to Complex tear of medial meniscus, current injury, right knee, subsequent encounter - Medication refills must be requested before 4pm Tuesday through Tuesday Related to Complex tear of medial meniscus, current injury, right knee, subsequent encounter - Patient education available at [employer] on the Education tab Related to Other tear of medial meniscus, current injury, right knee, subsequent encounter - Medication refills must be requested before 4pm Tuesday through Tuesday Related to Other tear of medial meniscus, current injury, right knee, subsequent encounter - Patient education available at [employer] on the Education tab Related to Encounter for other orthopedic aftercare - Medication refills must be requested before 4pm Tuesday through Tuesday Related to Encounter for other orthopedic aftercare Dietary management e ducation, guidance, and counseling Related to Body mass index (BMI) 25.0-25.9, adult - Patient education available at [employer] on the Education tab Related to Medial meniscus tear, right, initial encounter - Medication refills must be requested before 4pm Tuesday through Tuesday Related to Medial meniscus tear, right, initial encounter - Medication refills must be requested before 4pm Tuesday through Tuesday Related to Acute meniscal tear, medial - Patient education available at [employer] on the Education tab Related to Acute meniscal tear, medial - Patient education available at www.[email or web address] on the Education tab Related to Knee osteoarthritis - Medication refills must be requested before 4pm Tuesday through Tuesday Related to Knee osteoarthritis Dietary management e ducation, guidance, and counseling Related to Overweight Assessments Type Assessment Date assessment Lumbar disc herniation 17 assessment Acute bilateral low back pain wi thout sciatica Patient Care Teams Name Effective Dates (start - stop) Status Members No Information
--- OUTSIDE RECORDS SUMMARY | 2024-07-26 07:43 | XMS_ITS | Encounter Summary ---
Author Name [facility] Organization [facility] Address [address] [place] [address] Care Team Providers Care Booking Manager Name Role Phone RYAN ROLAND Primary Care Provider Unavailabl e ANDREA BARNETT Unavailable Unavailable CARMINE JORGENSEN Unavailable Unavailable MUNA BAR Unavailable Unavailable MATTHEW ALFORD Unavailable Unavailable DINORA [...] Love's Name Patient's Relationship to Policy Love [facility] 2017 TRICA RE Oct 25, 2017 [facility] [id number] ANDREW CAMARGO PATIENT [facility] 2024 TRICA RE SELEC T Apr 11, 2024 [facility] [id number] ANDREW CAMARGO PATIENT Selected Encounter This section includes the information on record at [place] for the Encounter. Date/Time Encounter Type Encounter Description Reason Pro vider Source IHE Encounter Template Text not used by [place] Advance Directives: All historical and current Section Date Range: From patient's date of to the date document was created. This section includes ALL of a patient's completed or amended [place] Advance and Rescinded Directives. The entries below indicate that a directive exists for the patient, but an actual copy is not included with this document. The data comes from all [place] facilities. Date Advance Directives Provider Source Dec 21, 2018 ADVANCE DIRECTIVE KELLY LIRA [facility] 15 Mar 11, 2017 ADVANCE DIRECTIVE LYNN PADGETT II [facility]
[2024-07-31 20:18] LABS: Almond (F20) IgE 0.94 kU/L; Brazil Nut (f18) 0.29 kU/L; Brazil Nut (f18) Class 0/1; Cashew Nut (F202) IgE Class 2; Codfish (F3) IgE <0.10 kU/L; Codfish (F3) IgE Class 0; Cow's Milk (F2) IgE <0.10 kU/L; Cow's Milk (F2) IgE Class 0; Egg White (F1) IgE Class 0/1; Hazelnut (F17) IgE Class 2; Macadamia Nut (rf345) 0.81 kU/L; Macadamia Nut (rf345) Class 2; Peanut (F13) IgE 0.93 kU/L; Peanut (F13) IgE Class 2; Salmon (F41) IgE <0.10 kU/L; Salmon (F41) IgE Class 0; Scallop (F338) IgE 0.59 kU/L; Scallop (F338) IgE Class 1; Sesame Seed 0.91 kU/L; Shrimp (F24) IgE 0.34 kU/L; Soybean (F14) IgE 0.72 kU/L; Soybean (F14) IgE Class 2; Tuna (F40) <0.10 kU/L; Tuna (F40) Class 0; Walnut (F256) IgE 0.87 kU/L; Walnut (F256) IgE Class 2; Wheat (F4) IgE 0.85 kU/L; Wheat (F4) IgE Class 2
== END 2024-07-26 07:39 | disposition home or self-care (01) ==
PROVIDERS: Visit Provider Nurse Practitioner Family
DX: R10.9 Unspecified abdominal pain (principal); K52.9 Noninfective gastroenteritis and colitis, unspecified
CPT/HCPCS: 36415; 86003

== ENCOUNTER 2024-08-30 05:25 | Outpatient (CLI) | payer OTHER, SELFPAY ==
--- OUTSIDE RECORDS SUMMARY | 2024-08-30 05:27 | XMS_ITS | Data Portability ---
Author Organization [place] [facility], [facility] Address [address] [facility] [address] [place] [address] Care Team Providers Care Hardwood Faller Name Role Phone BLADIMIR MARTINEZ Orthopedic Surgeon [phone] LETY NDIAYE Primary Care Provider Assessment Encounter [...] 2 or more view [address] [facility], [address] [place], [address], 8 18:57:55 XR, scapula [address] [facility], [address] [place], [address], 8 18:57:55 Medication Orders Medrol (Ravi) 4 mg tablets in a dose pack 2018 [address] [facility] [id number], [address] [place], [address], 9 17:08:37 Voltaren 1 % topical gel 2018 [address] [facility] [id number], [address] [place], [address], 9 17:08:37 Depo-Medrol 40 mg/mL suspension for injection 2018 019 [email or web address] Not available 9 17:08:37 lidocaine HCl 10 mg/mL (1 %) injection solution 2018 019 [email or web address] Not available 9 17:08:37 Depo-Medrol 40 mg/mL suspension for injection [address] [facility] [address] [facility] [id number], [address] , [place], [address], 9 09:24:44 Marcaine (PF) 0.25 % (2.5 mg/mL) injection solution [address] [facility] [id number], [address] , [place], [address], 8 18:57:55 Depo-Medrol 40 mg/mL suspension for injection [address] [id number], [address] [facility], [place], [address], 9 09:24:44 lidocaine (PF) 10 mg/mL (1 %) injection solution [address] [id number], [address] [place], [address], 9 09:25:01 Marcaine 0.25 % (2.5 mg/mL) injection solution 2017 018 [facility] [id number], [address] [place], [address], 8 18:57:55 Medrol (Ravi) 4 mg tablets in a dose pack 2017 018 [email or web address] [facility] [id number], [address] [place], [address], 8 14:53:14 Patient TargetsNo targets recorded. Patient Instructions Encounter Date Encounter Id Patient Instructions Last Modified By Organization Details Last Modified Time 08/18/2017 [id number] slight set back with forced movement while on train on 08/17. dose pack as directed. cont PT. provided with throwing program to begin throwing with surgical shoulder. he does require aggressive and continued PT estimate an additional 10-12 weeks. full motion and strength, no restricitons. lrichie Not available 08/18/2017 18:05:00 Throwing program provided today [email or web address] Not available 08/18/2017 15:49:18 06/22/2018 [id number] biceps tendinitis: exercises lrichie Not available 06/23/2018 00:14:02 08/01/2018 [id number] rotator cuff injury: care instructions [email or web address] Not available 08/01/2018 23:29:08 Reason for Referral None Reported. Results Created Date Observation Date Name Description Value Unit Range Abnormal Flag Note LastModifiedBy Organization Detail LastModifiedTime 07/08/19 19 07/07/2018 adelaida JENNINGS , rosario ede No observ ation record ed. [facility] [address], [place], [address], 08/05/2018 07:39:34 07/08/19 19 07/07/2018 adelaida JENNINGS , rosario ede No observ ation record ed. [facility] [address], [place], [address], 08/05/2018 07:39:34 Result Notes None recorded. Problems Name Problem SNOMED Code Status Onset Date Resolution Date Notes Provider Name and Address Organization Details Recorded Time Shoulder joint pain 618685677 Active 2014 HORACE Mccabe - [facility] 7 10:24:51 Sciatica 24758266 Active 2016 HORACE Mccabe - [facility] 7 10:25:04 Degenerati on of lumbar interverte bral disc 50807376 Active 2016 HORACE Mccabe - [facility] 7 10:25:17 Low back pain 352851884 Active 2016 Amaris Del Rosario null, [facility] 7 10:25:29 Tear of meniscus of knee 924126343 Active 2016 Amaris byrd [facility] 7 10:25:47 Subacromia l impingemen t 321747544 Active 2016 Bladimir Martinez MD [address] [facility] [address], [place], [address] , [place] [facility] 7 13:09:35 Inflammati on of rotator cuff tendon 068257071 Active 2016 Bladimir Martinez MD [address] [facility] [address], [place], [address] , [place] [facility] 7 13:09:36 Shoulder joint pain 323004675 Active 2014 Not Available [facility] 7 01:59:33 History of arthroscop ic procedure on shoulder 374904719 Active 2016 Cheri byrd [facility] 7 17:04:03 Biceps tendinitis 607314556 Active 2017 Melinda byrd [facility] 8 13:35:12 Bursitis of right shoulder 8620430485310 07 Active 2017 Melinda byrd [facility] 8 13:38:48 Problem Notes None recorded. Procedures Surgical History Date Name Laterality Status Provider Name and Address Organization Details Recorded Time 06/23/19 19 Lbr.us.biceps.inj completed Bladimir Martinez MD [address] [facility], [place], [address], [place] [facility] 06/23/2018 00:13:38 03/23/20 18 lbr.us.completesho ulder completed Bladimir Martinez MD [address] [facility] [address], [place], [address], [place] [facility] 03/24/2018 08:06:39 03/23/20 18 lbr.us.CATHIE completed Bladimir Martinez MD [address], [place], [address], [place] - [facility], 03/24/2018 08:07:05 03/23/20 18 lbr.us.shoulderinj ection completed Bladimir Martinez MD [address], [place], [address], [place] - [facility], 03/24/2018 08:08:11 06/11/19 18 lbr.inj.subacromia l completed Bladimir Martinez MD [address], [place], [address], [place] - [facility], 08/22/2017 12:24:20 06/11/19 18 lbr.inj.shoulder completed Bladimir Martinez MD [address], [place], [address], [place] - [facility], 06/11/2017 22:22:00 06/11/19 18 ULTRASOUND DIAGNOSTIC (COMPLETE) completed Bladimir Martinez MD [address], [place], [address], [place] [facility], 08/22/2017 12:24:40 03/30/20 17 SHOULDER ARTHROSCOPY WITH SLAP LESION REPAIR (SURG) completed Sujata Chowdhury [facility], 04/05/2017 09:18:57 10/16/19 17 DME - [employer] - L3670,N completed Bladimir Martinez MD [address], [place], [address], [place] [facility], 10/15/2016 09:55:22 09/10/19 17 lbr.inj.subacromia l completed Sujata Chowdhury [facility], 09/09/2016 11:01:06 04/11/19 03 Cholecystectomy completed Lisha Storey [facility], 09/08/2016 17:47:10 Knee Arthroscopy completed Lisha Storey [facility], 09/08/2016 17:47:33 Unlisted px cardiac surgery completed Lisha Storey [facility], 09/09/2016 10:23:44 Imaging Results Imaging Date Name Status LastModified by Organiz ation Details LastModified Time 07/07/2018 MR, arthrogram, shoulder completed [email or web address] [facility] [address] [facility] [address], [place], [address], 08/05/2018 07:39:34 07/07/2018 MR, arthrogram, shoulder completed [email or web address] [facility] [address] [facility] [address], [place], [address], 08/05/2018 07:39:34 Procedure Notes None recorded. Medical Equipment None Reported. Allergies Allergen ID Allergen Name Allergen Category Reaction Reaction Severity Criticality Documentation Date Start Date Code Code System Note Provider Name and Address Organization Details Recorded Time 240793 codeine phosphate medicatio n Not available Not available Not available 07/15/20162012 2672 RxNorm HORACE Lorenzo - [facility], 7 16:57:05 553158 codeine phosphate medicatio n Not available Not available Not available 10/16/20162012 2672 RxNorm Not Available [facility] 7 01:04:41 Medications Name Sig Start Date Stop Date [...] Not Available Not Available Not Available Transderm-S mass spectroscopist 1 mg over 3 days transdermal patch [...] Available Not Available Not Available amoxicillin 875 mg-iris culver clavulanate 125 mg tablet active Not Available [...] Updated DateTime 08/18/2017 185.42 cm Melinda Tabor [facility], 08/18/2017 14:59:03 Date Recorded Body height Body mass index (BMI) Body weight Heart rate Systolic blood pressure Diastolic blood pressure Provider Name and Address Organization Details Last Updated DateTime 8 185.42 cm 29 kg/m2 14544.3 2 g 54 /min 109 mm[Hg] 59 mm[Hg] Lisha Storey [facility], 8 14:52:40 Date Recorded Body height Provider Name an d Address Organization Details Last Updated DateTime 03/23/2018 185.42 cm Melinda Leander [facility], 03/23/2018 12:20:46 Date Recorded Body height Body mass index (BMI) Body weight Provider Name and Address Organization Details Last Updated DateTime 06/22/2018 185.42 cm 29 kg/m2 42191.32 g Swati Hess [facility] 06/22/2018 09:24:24 Date Recorded Body height Body mass index (BMI) Body weight Provider Name and Address Organization Details Last Updated DateTime 08/01/2018 185.42 cm 29 kg/m2 54236.32 g Swati Hess [facility] 08/01/2018 15:38:17 Social History Question Answer Notes LastModified by Organizat ion Details LastModified Time Tobacco Smoking Status Never Smoker Lisha Raleigh byrd [facility], 09/08/2016 17:47:48 What Was The Date Of Your Most Recent Tobacco Screening? 08/01/2018 Information n ot available 11/01/2018 Sex: Unknown Functional Status Question Answer Note LastModified by Organizat ion Details LastModified Time What is your level of alcohol consumption? Occasional [email or web address] Information not available 09/08/2016 Mental Status None recorded. Family History Relationship [...] Gout N Hyperthyroidism N Rheumatoid arthritis N Osteoarthrosis N Irritable bowel syndrome N HEENT - Wears corrective lenses N Depression N COPD N Pneumonia N Peptic ulcer disease N History of head and neck tumor N NEURO - Cerebral palsy N Skin infection N Active aids N Mitral valve prolapse N Renal failure N HIV positive N GI - GERD N Joint injury N Hypoparathyroidism N Hypercholesterolemia N MS - Fracture N Fibromyalgia N Cerebrovascular accident N PSYCHE - Claustrophobia N Neuromuscular disease N Poliomyelitis / post polio N ENDOCRINE - Obesity N Hearing impairment N Dysvascular amputation LE N Other diagnosis N Anxiety disorder N Deformity N CHEST - Sleep apnea N Crohn's disease N Pulmonary embolism N Chronic venous stasis disease N Psychosis N Coagulopathy N Cardiac valvular disease N Asthma N Blood clotting disorder N Are you under pain mgmt treatment N Fragility fracture N Vertigo N Hepatitis N Neuropathy N Coronary artery disease N Pressure sore N Diabetes Type II (NIDDM) N Skin ulceration N Bipolar disorder N Legally blind N Glaucoma N Hypothyroidism N Pacemaker N Sinusitis / sinus infection N Peripheral vascular disease N Cystic fibrosis N Cholecystitis N Sickle cell N VASCULAR - Deep venous thrombosis N Osteomyelitis N SKIN - Rash N INFECTIOUS - Current active infection N Previous myocadial infarction N Heart murmur N Itp / ttp N Congestive heart failure N Lupus Arthritis N Skin bruising N HEART - Arrhythmia Y Diabetes Type I (IDDM) N Chemically anticoagulated N Dental caries / gingivitis N Fracture non-union N Dysvascular gangrene N - Cystitis N Renal dialysis N Diverticulitis N Dementia N Ulcerative colitis N Seizure disorder N MISC - Cancer N Organ transplant N Hypertension N Osteoporosis N Past Encounters Encounter ID Performer Location Encounter Start Date Encounter Closed Date Diagnosis/Indication Diagnosis SNOMED-CT Code Diagnosis ICD10 Code Diagnosis Note [id number] Bladimir Martinez MD [address] [address] 09/09/2016 10:07:53 09/09/2016 11:38:23 Shoulder joint pain 644431134 M25.055 [id number] Bladimir Martinez MD [address] [address] 10/07/2016 09:29:18 10/07/2016 11:08:47 Shoulder joint pain 055049103 M25.511 Inflammati on of rotator cuff tendon 615074435 M65.811 Subacromia l impingement 416717585 M75.41 [id number] Bladimir Martinez MD [address] [address] 10/15/2016 09:02:55 10/15/2016 10:44:44 Injury of superior glenoid labrum of shoulder joint 952893297 S43.431A Partial th ickness rotator cuff tear 114182535 M75.111 Arthritis of acromioclavicular joint 794143711 M13.819 Subacromia l impingement 989083396 M75.[id number] [address] 04/07/2017 15:26:51 04/07/2017 17:02:42 History of arthroscopic procedure on shoulder 314615841 Z98.890 M75.101 S43.431A [id number] Bladimir Martinez MD [address] [address] 04/14/2017 10:18:34 04/14/2017 11:18:20 Postprocedural state finding 138334928 Z98.890 Glenoid labrum tear 2023 57391 S43.431D Partial th ickness rotator cuff tear 248002157 M75.324 [id number] Bladimir Martinez MD [address] [address] 05/12/2017 09:56:09 05/12/2017 11:37:49 Postprocedural state finding 985434877 Z98.890 Glenoid labrum tear 2023 11365 S43.431D Partial th ickness rotator cuff tear 390909836 M75.108 [id number] Bladimir Martinez MD [address] [address] 06/10/2017 11:15:51 06/10/2017 13:18:05 Glenoid labrum tear 954366435 S43.431D Partial th ickness rotator cuff tear 897904428 M75.325 [id number] Bladimir Martinez MD [address] [address] 08/18/2017 14:48:53 08/18/2017 17:39:41 Subacromial impingement 955827532 M75.41 Inflammati on of rotator cuff tendon 273862651 M65.812 Pain of acromioclavicular joint 896841227 M25.512 Biceps tendinitis 482586 007 M75.22 [id number] Bladimir Martinez MD [address] [address] 10/18/2017 14:43:46 10/18/2017 15:42:40 Subacromial impingement 455133143 M75.41 Inflammati on of rotator cuff tendon 147362620 M65.812 Pain of le ft shoulder joint 6350061737 7582955 M25.512 Biceps tendinitis 264701 007 M75.22 [id number] Bladimir Martinez MD [place] [address] [facility] [facility],[address] [address] 03/23/2018 12:07:16 03/23/2018 13:37:54 Shoulder joint pain 673153936 M25.511 Biceps tendinitis 737195 007 M75.21 Bursitis o f right shoulder 8726907193 12146 M75.51 [id number] Bladimir Martinez MD [address] [address] 06/22/2018 09:02:30 06/22/2018 10:37:42 Bursitis of right shoulder 2173559989 88266 M75.51 Biceps tendinitis 255423 007 M75.21 [id number] Bladimir Martinez MD [address] [address] 08/01/2018 15:10:46 08/01/2018 16:20:48 Injury of superior glenoid labrum of shoulder joint 091445123 S43.431A Full thick ness rotator cuff tear 869683492 M75.121 Health Concerns Section Related Observation LastModified by Organization Detai ls LastModified Time None Recorded Concern Status LastModified by Organization Details LastModified Time None Recorded Advance Directives Directive None Recorded Payers Insurance Date Sequence Insurance Name Policy Number Policy Love Covered Member ID Love Member ID Guarantor Name 07/29/2018 1 [facility] ( - PPO) Ronny W Santiago [id number] Ronny W Santiago 09/09/2016 1 [employer] [facility] [place] - EXTRA Ronny Santiago [id number] Ronny W Santiago 04/13/2017 1 [employer] [place] Ronny W Santiago [id number] Ronny W Santiago 03/23/2018 1 [facility] [employer] - PRIME () Ronny W Santiago [id number] Ronny W Santiago Notes Date Note Type Note Provider Name [...] on and they stopped suddenly and he zoial his shoulder and he has been sore since. He does report that he has tenderness to palpitation and that he has a constant pain of 3/10. prior to this incident his pain was less. although he is progressing he still has pain and limitations voerhead. Bladimir Martinez MD [address] [facility] [address], [place], [address], [facility], 08/18/2017 18:05:08 10/18/2017 text/html Patient reports today [...] states [place] [address] [place] [address] [address], [place], [address], [facility] - [facility], 10/19/2017 15:18:18 03/23/2018 text/html Patient reports today [...] recent [place] [address] [place] [address], [place], [address], [facility] - [facility], 03/24/2018 08:10:55 06/22/2018 text/html Patient is a 42 yo male who presents to the office with (R) shoulder pain. Patient states it feels the same as it did before. He is interested in getting injection today. no repeat trauma. pain ic aching, constant, worse with use and better with rest. worst when crossing arm in front of him. Bladimir Martinez MD [facility] [address], [place], [address], [facility] - [facility], 06/23/2018 00:14:34 08/01/2018 text/html Patient is a 42y o male who presents to the office for MRI results. Patient has no changes to symptoms since last visit. contues to have right shoulder pain worse with use and better with rest. Bladimir Martinez MD [address] [place] [address] [address], [place], [address], [facility], 08/01/2018 23:29:23
--- OUTSIDE RECORDS SUMMARY | 2024-08-30 05:27 | XMS_ITS | Referral Summary ---
Author Organization [facility] Address [address] [place] [address] Care Team Providers Care Paper Handler Name Role Phone Zachary Kapoor MD Unavailable Erik Goncalves DO Unavailable Erik Goncalves DO Primary Care Provider [phone] Encounters Date Type Department Care Team Description 08/17/2024 7:41 AM CDT - 08/17/2024 11:59 PM CDT Hospital Encounter [facility] [address] [address] Zachary Kapoor MD Greater trochanteric bursitis of left hip Discharge Disposition: Discharge to home or self care 08/03/2024 8:13 AM CDT - 08/03/2024 11:59 PM CDT Hospital Encounter [facility] [address] [address] Zachary Kapoor MD Greater trochanteric bursitis of left hip (Primary Dx) Discharge Disposition: Discharge to home or self care 07/27/2024 12:46 PM CDT - 07/27/2024 11:59 PM CDT Hospital Encounter [facility] [address] [address] Zachary Kapoor MD Greater trochanteric bursitis of left hip (Primary Dx) Discharge Disposition: Discharge to home or self care 07/12/2024 Results Follow-Up Cardiology Juan Hart MD Transthoracic Echo (TTE) Complete W Doppler/CF 07/10/2024 3:00 PM CDT Ancillary Procedure [facility] Medical [facility] Cardiology [address] [place] [address] Chest pain, unspecified type 07/04/2024 Results Follow-Up [facility] Cardiology [address] [place] [phone] Juan Hart MD CTA Heart and Coronary Arteries W Morphology when Performed 07/02/2024 2:20 PM CDT - 07/02/2024 11:59 PM CDT Hospital Encounter [facility] ([facility]) [address] [place] [address] Chest pain, unspecified type Discharge Disposition: Discharge to home or self care 06/20/2024 Orders Only [facility] Cardiology [address] [place] [address] [address] [place] [phone] ProviderYosvany MD 06/18/2024 2:10 PM CDT - 06/18/2024 11:59 PM CDT Hospital Encounter [facility] [address] [place] [address] Zachary Kapoor MD Chronic left hip pain (Primary Dx); Greater trochanteric bursitis of left hip Discharge Disposition: Discharge to home or self care 06/07/2024 2:07 PM SENIOR SALES OPERATIONS MANAGER - 06/07/2024 11:59 PM SENIOR SALES OPERATIONS MANAGER Hospital Encounter [facility] [address] [place] [address] Zachary Kapoor MD Greater trochanteric bursitis of left hip (Primary Dx) Discharge Disposition: Discharge to home or self care from Last 3 Months Allergies Active Allergy [...] you have a drink containing alc ohol? Monthly or less 07/27/2024 Q2: How many drinks containi ng alcohol do you have on a typical day when you are drinking? 1 or 2 07/27/2024 Q3: How often do you have si x or more drinks on one occasion? Never 07/27/2024 Sex and Gender Information Value Date Recorded Sex Assigned at Not on file Legal Sex Male 8:13 AM CDT Gender Identity Not on file Sexual Orientation Not on file Last Filed Vital Signs Vital Sign Reading Time Taken Comments Blood Pressure 121/73 08/17/2024 8:34 AM CDT Pulse 60 08/17/2024 8:34 AM CDT Temperature 36.2 C (97.1 F) 08/17/2024 7:49 AM CDT Respiratory Rate 18 08/17/2024 8:34 AM CDT Oxygen Saturation 100% 08/17/2024 8:34 AM CDT Inhaled Oxygen Concentration - - Weight 99.4 kg (219 lb 3.2 oz) 07/27/2024 12:53 PM CDT Height 185.4 cm (6' 1 ) 07/27/2024 12:53 PM CDT Body Mass Index 28.92 07/27/2024 12:53 PM CDT Plan of Treatment Not on file Procedures Procedure Name Priority Date/Time Associated Diagnosis Comments PAIN MGMT IMAGING SHOULDER, HIP, KNEE JOINT/BURSA INJ LEFT Schedule Routine, Read Routine (OP Routine) 08/17/2024 8:19 AM CDT Greater trochanteric bursitis of left hip PAIN MGMT IMAGING SHOULDER, HIP, KNEE JOINT/BURSA INJ BILATERAL Schedule Routine, Read Routine (OP Routine) 08/03/2024 9:04 AM CDT Greater trochanteric bursitis of left hip TRANSTHORACIC ECHO (TTE) COMPLETE W DOPPLER/CF WO [...] CDT Greater trochanteric bursitis of left hip from Last 3 Months Results * Imaging Shoulder, Hip, Knee Joint/Bursa INJ Left () (08/17/2024 8:19 AM CDT) Narrative SON_ANTONIO_LALY_MHE - 08/17/2024 1:26 PM CDT The images from this study are not interpreted by Radiology. Please refer to the physician's procedure / OR operative note. us Zachary BENJAMIN PAIN MGMT PROCEDURES Final R esult SON_ANTONIO_LALY_MHE * Imaging Shoulder, Hip, Knee Joint/Bursa INJ INJ Bilateral () (08/03/2024 9:04 AM CDT) Narrative ROSAB_MHE - 08/03/2024 1:08 PM CDT The images from this study are not interpreted by Radiology. Please refer to the physician's procedure / OR operative note. us Zachary Kapoor MD IMG PAIN MGMT PROCEDURES Final R esult SON_ANTONIO_MHB_MHE * TRANSTHORACIC ECHO (TTE) COMPLETE W DOPPLER/CF WO CONTRAST (07/10/2024 4:00 PM CDT) LV EF 55-60 % CONS SCIMAGE Anatomical Region Laterality Modality Ultrasound 07/10/2024 3:41 PM CDT Narrative 07/10/2024 5:04 PM CDT [facility] Medical Group Cardiology [address] [facility] [address], [place] [address] [address] [facility] [address], [place] [address] P:[phone] P:[phone] Echocardiographic Report Patient Name: RONNY CAMARGO W : 1975 Study Date: 07/10/2024 3:41:02 PM Gender: M Tech: Location: [place] Ref Provider: JUAN HART Height(Cm): 185 BSA: [...] Interpretation Site: Exam was interpreted at [facility]. Left Ventricle: Normal left ventricular systolic function. [...] Procedure Note Terry [place] MD - 07/10/2024 [facility] Medical Group Cardiology [address] [facility] [address], [place] [address] [address] [facility] [address], [place] [address] P:[phone] P:[phone] Echocardiographic Report Patient Name: RONNY CAMARGO W : 1975 Study Date: 07/10/2024 3:41:02 PM Gender: M Tech: Location: [facility] Provider: JUAN HART Height(Cm): 185 BSA: 2.28 [...] Interpretation Site: Exam was interpreted at [facility]. Left Ventricle: Normal left ventricular systolic function. [...] [place] MD 07/10/2024 5:04:28 PM CDT us [facility] Maegan Hart MD CV ECHO PROCEDURES Yulisa [...] it. Electronically signed by: Jose Mcguire M.D. us Juan Hart MD IMG CT PROCEDURES Final Result * Imaging Shoulder, Hip, Knee Joint/Bursa INJ Left () (06/18/2024 2:44 PM CDT) Narrative SON_ANTONIO_MHB_MHE - 06/18/2024 3:59 PM CDT The images from this study are not interpreted by Radiology. Please refer to the physician's procedure / OR operative note. us Zachary Kapoor MD IMG PAIN MGMT PROCEDURES Final R esult RAD_CLARIO_MHB_MHE from Last 3 Months Insurance [facility] Address: [facility] [address] [place] [address] Care Teams Paper Handler Relationship Specialty Start Date End Date Erik Goncalves DO [address] [place] [address] PCP - General Family Medicine 05/31/24 Zachary Kapoor MD [address] [facility] [address] [facility], [address] [address] Consulting Physician Pain Management 09/23/23 [place] Goncalves DO [address] [facility] [address] [facility], [address] [address] Family Medicine 09/30/23
--- OUTSIDE RECORDS SUMMARY | 2024-08-30 05:27 | XMS_ITS | Encounter Summary ---
Author Organization [facility] Healthcare Address [address] [place] [address] Care Team Providers Care Supervisor Sheet Manufacturing Name Role Phone Zachary Kapoor MD Unavailable Erik Goncalves DO Unavailable Erik Goncalves DO Primary Care Provider [phone] Encounter Details Date Type Department Care Team (Late st Contact Info) Description 07/12/2024 Results Follow-Up Cardiology David Hart MD [address] [address] Transthoracic Echo (TTE) Complete W Doppler/CF Social History Tobacco Use Types Packs/Day Years [...] on filedocumented in this encounter Care Teams Supervisor Sheet Manufacturing Relationship Specialty Start Date End Date Erik Goncalves DO [address] [place] [address] PCP - General Family Medicine 05/31/24 Zachary Kapoor MD [address] [facility], [address] [address] Consulting Physician Pain Management 09/23/23 Erik Goncalves DO [address] [facility], [address] [address] Family Medicine 09/30/23 documented as of this encounter
--- OUTSIDE RECORDS SUMMARY | 2024-08-30 05:27 | XMS_ITS | Clinical Summary ---
Author Organization [facility] Address [address] [place] [address] Care Team Providers Care Crusher Assembler Name Role Phone Zachary Kapoor MD Unavailable Erik Goncalves DO Unavailable Erik Goncalves DO Primary Care Provider [phone] Allergies Active Allergy Reactions Criticality Noted Date [...] - 08/17/2024 11:59 PM CDT Hospital Encounter [facility] Pain [facility] [address] [address] Zachary Kapoor MD Greater trochanteric bursitis of left hip Discharge Disposition: Discharge to home or self care 08/03/2024 8:13 AM CDT - 08/03/2024 11:59 PM CDT Hospital Encounter [facility] Pain [facility] [address] [address] Zachary Kapoor MD Greater trochanteric bursitis of left hip (Primary Dx) Discharge Disposition: Discharge to home or self care 07/27/2024 12:46 PM CDT - 07/27/2024 11:59 PM CDT Hospital Encounter [facility] Pain [facility] [address] [address] Zachary Kapoor MD Greater trochanteric bursitis of left hip (Primary Dx) Discharge Disposition: Discharge to home or self care 07/12/2024 Results Follow-Up Cardiology Juan Hart MD Transthoracic Echo (TTE) Complete W Doppler/CF 07/10/2024 3:00 PM CDT Ancillary Procedure [facility] Medical Group Cardiology [address] [place] [phone] Chest pain, unspecified type 07/04/2024 Results Follow-Up [facility] Cardiology [address] [place] [address] Juan Hart MD CTA Heart and Coronary Arteries W Morphology when Performed 07/02/2024 2:20 PM CDT - 07/02/2024 11:59 PM CDT Hospital Encounter [facility] [address] [place], [place] [id number] Chest pain, unspecified type Discharge Disposition: Discharge to home or self care 06/20/2024 Orders Only [facility] Medical Group Cardiology [address] [place] [phone] ProviderYosvany MD 06/18/2024 2:10 PM CDT - 06/18/2024 11:59 PM CDT Hospital Encounter [facility] Pain [facility] [address] [facility] [address] [place] [address] Zachary Kapoor MD Chronic left hip pain (Primary Dx); Greater trochanteric bursitis of left hip Discharge Disposition: Discharge to home or self care 06/07/2024 2:07 PM MANAGER CLIENT - 06/07/2024 11:59 PM MANAGER CLIENT Hospital Encounter [facility] [address] [facility] [address] [place] [address] Zachary Kapoor MD Greater trochanteric bursitis of left hip (Primary Dx) Discharge Disposition: Discharge to home or self care from Last 3 Months Surgical History Surgery Date Site/Laterality Comments CHOLECYSTECTOMY ABLATION SHOULDER ARTHROPLASTY Right Medical History Medical History Date Comments Plantar lipomatosis, facial dysmorphism, and developmental delay syndrome Other bursal cyst, left hip 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 Please refer to the physician's procedure / OR operative note. Zahcary Kapoor MD [facility] PROCEDURES Final R esult Performing Organization Address [facility]/ZIP Co de Phone Number RAD_CLARIO_MHB_MHE * Imaging Shoulder, Hip, Knee Joint/Bursa INJ INJ Bilateral () (08/03/2024 9:04 AM CDT) Narrative SON_ANTONIO_B_MHE - 08/03/2024 1:08 PM CDT The images from this study are not interpreted by Radiology. Please refer to the physician's procedure / OR operative note. Zachary Kapoor MD [facility] PROCEDURES Final R esult Performing Organization Address City/[facility]/ZIP Co de Phone Number RAD_CLARIO_MHB_MHE * TRANSTHORACIC ECHO (TTE) COMPLETE W DOPPLER/CF WO CONTRAST (07/10/2024 4:00 PM CDT) LV EF 55-60 % CONS SCIMAGE Anatomical Region Laterality Modality Ultrasound 07/10/2024 3:41 PM CDT Narrative 07/10/2024 5:04 PM CDT [facility] Medical Group Cardiology [address], [place] [address] [address], [place] [address] P:[phone] P:[phone] Echocardiographic Report Patient Name: RONNY CAMARGO W : 1975 Study Date: 07/10/2024 3:41:02 PM Gender: M Tech: Location: [facility] Provider: JUAN HART Height(Cm): 185 BSA: 2.28 [...] Interpretation Site: Exam was interpreted at [facility]. Left Ventricle: Normal left ventricular systolic [...] Procedure Note Terry [place] MD - 07/10/2024 [facility] Medical Group Cardiology [address] [facility] [address] [address] [address] [facility] [address], [place] [address] P:[phone] P:[phone] Echocardiographic Report Patient Name: RONNY CAMARGO W : 1975 Study Date: 07/10/2024 3:41:02 PM Gender: M Tech: Location: [facility] Provider: JUAN HART Height(Cm): 185 BSA: 2.28 [...] Interpretation Site: Exam was interpreted at [facility]. Left Ventricle: Normal left ventricular systolic [...] [place] MD 07/10/2024 5:04:28 PM CDT us [facility] Maegan Hart MD CV ECHO PROCEDURES Yulisa [...] it. Electronically signed by: Jose Mcguire M.D. [facility] Maegan Hart MD IM CT PROCEDURES Final Result * Imaging Shoulder, Hip, Knee Joint/Bursa INJ Left () (06/18/2024 2:44 PM CDT) Narrative RAD_ANTONIO_MHB_MHE - 06/18/2024 3:59 PM CDT The images from this study are not interpreted by Radiology. Please refer to the physician's procedure / OR operative note. Zachary Kapoor MD IMG PAIN MGMT PROCEDURES Final R esult RAD_CLARIO_MHB_MHE from Last 3 Months Insurance [facility] Care Teams Crusher Assembler Relationship Specialty Start Date End Date Erik Goncalves DO [address] [place] [address] PCP - General Family Medicine 05/31/24 Zachary Kapoor MD [address] [facility], [address] [address] Consulting Physician Pain Management 09/23/23 Erik Goncalves DO [address] [facility], [address] [address] Family Medicine 09/30/23
--- OUTSIDE RECORDS SUMMARY | 2024-08-30 05:27 | XMS_ITS | Data Portability ---
Author Organization [facility] [place] - Inocencio bowmanedisonVALDEMAR_[place] Address [address] [place] [address] Care Team Providers Care Chief Investigator Name Role Phone SANIYA NDIAYE Primary Care Provider [phone] Assessment No assessment recorded. Plan of Treatment Reminders Order Date Submit Date Provider Last Modified By Organization Details Last Modified Time Details Appointments None recorded. Lab None recorded. Referral None recorded. Procedures esophagog astroduod enoscopy with esophagea l dilation (PROC) - ASA 2EGD w/ DILATION 2015 016 [email or web address] Not available 6 14:31:35 Surgeries None recorded. Imaging electroca rdiogram 2018 019 [email or web address] [facility] Orders (For Internal Use Only), [address] , [place], [address], 9 16:41:52 electroca rdiogram 2017 018 [email or web address] [facility] Orders (For Internal Use Only), [address] , [place], [address], 8 22:26:21 event monitor 2017 018 [email or web address] [facility] Orders (For Internal Use Only), [address] , [place], [address], 8 15:06:15 electroca rdiogram 2017 018 lala [facility] In-[facility] Orders (For Internal Use Only), [address] , [place], [address], 8 12:47:50 electroca rdiogram 2016 017 [email or web address] [facility] Orders (For Internal Use Only), [address] , [place], [address], 7 12:53:44 Medication Orders propranol ol ER 80 mg capsule,2 4 hr,extend ed release 2017 018 INTERFACE [facility], [address] [place] [address], [place], [address], 8 17:25:01 Patient TargetsNo targets recorded. Patient Instructions Encounter Date Encounter Id Patient Instructions Last Modified By Organization Details Last Modified Time 11/12/2015 [id number] learning about swallowing problems Not available 11/12/2015 14:48:53 buckley's esophagus: care instructions Not available 11/12/2015 14:48:53 06/27/2018 [id number] (NOEMY) ankle brachial index* MARGARET Not available 07/03/2018 12:50:17 Reason for Referral None Reported. Results Created Date Observation Date Name Description Value Unit Range Abnormal Flag Note LastModifiedBy Organization Detail LastModifiedTime 11/20/19 16 11/20/2015 patho logy study accession number [id number] Not Available [facility]* [address] [place] [address], [place], [address], 11/24/2015 18:44:10 11/20/19 16 11/20/2015 patho logy study final microscopic diagnosis A. Esoph dominga, Biops y: - UNREM ARKAB LE SQUAM OUS MUCOS A. - No evide nce of funga l organ isms, Eosin ophil ic Esoph agiti s or Wyano tt's speci jesusita d colum star epith elium (inte sil l metap lasia ) (Alci an Blue/ PAS stain exami leonard). Not Available [facility]* [address] [place], [address], 11/24/2015 18:44:10 11/20/19 16 11/20/2015 patho logy [...] Diagnostics* [address], [place], [address], 11/24/2015 18:44:10 11/20/19 16 11/20/2015 patho logy [...] queta, [address] ,[place] ,[address] Not Available [facility]* [address], [place], [address], 11/24/2015 18:44:10 02/02/20 16 11/11/2015 elect roccelso diogr am No observ ation record ed. [email or web address] [facility] Orders (For Internal Use Only) [address], [place], [address], 02/02/2016 17:08:08 12/08/19 17 11/09/2016 elect roccelso diogr am No observ ation record ed. [email or web address] [facility] (For Internal Use Only) [address] [place], [address], 12/10/2016 11:48:53 10/15/19 18 09/02/2017 elect jose armando reinagr am No observ ation record ed. [email or web address] [facility] Orders (For Internal Use Only) [address], [place], [address], 10/17/2017 15:33:59 01/25/20 18 09/02/2017 event monit [...] * No observ ation record ed. [email or web address] [facility]) [address] [facility], [place], [address], 07/03/2018 13:00:10 07/26/19 19 06/27/2018 elect jose armando reinagr am No observ ation record ed. [facility] (For Internal Use Only) [address], [place], [address], 07/27/2018 06:28:38 Result Notes None recorded. Problems Name Problem SNOMED Code Status Onset Date Resolution Date Notes Provider Name and Address Organization Details Recorded Time Palpitatio ns 15180257 Active LILIYA Brewer [address] [facility] [address], [place], [address], [facility] 6 14:27:21 Supraventr icular tachycardi a 1679875 Active h/o ablation at [facility] LILIYA Brewer [address] [facility] [address], [place], [address], [facility] 6 14:27:21 Sinus tachycardi a 32625732 Active Confirmed by [employer] 12/2013, rates peaking 120-130 Shilpa Brooks, MARKET NEWS REPORTER [address] [place] [address], [place], [address], [facility] 6 14:31:35 Migraine 83853794 Active Shilpa Brooks [employer]TER [address] [place] [address], [place], [address], [facility] 6 14:27:21 Dysphagia 95226467 Active Shilpa Brooks, MARKET NEWS REPORTER [address] [place] [address], [place], [address], [facility] 6 14:31:35 Globus sensation Active Shilpa Brooks, MARKET NEWS REPORTER [address] [place] [address], [place], [address], [facility] 6 14:31:35 Buckley's esophagus 857116095 Active Shilpa Brooks, MARKET NEWS REPORTER [address] [place] [address], [place], [address], [facility] 6 14:31:35 Gastroesop hageal reflux disease without esophagiti s 123930162 Active Shilpa Brooks, MARKET NEWS REPORTER [address] [place] [address], [place], [address], [facility] 6 14:31:35 Problem Notes None recorded. Procedures Surgical History Date Name Laterality Status Provider Name and Address Organization Details Recorded Time 02/07/20 14 Echo completed Nik Patel MD [address] [place] [address], [place], [address], [facility] 05/03/2014 17:55:33 04/11/19 07 EP Study/Ablation completed Nik Patel MD [address] [place] [address], [place], [address], [facility] 11/17/2013 17:09:06 04/11/19 07 Cardiac Surgery completed Emil Dumont [facility] 01/23/2014 16:04:23 Cholecystectomy completed Nik Patel MD [address] [facility] [address], [place], [address], [facility] 11/11/2015 13:05:24 Knee Surgery completed Nik Patel MD [address] [facility] [address], [place], [address], [facility] 11/11/2015 13:05:24 Imaging Results Imaging Date Name Status LastModified by Organization Details LastModified Time 11/11/2015 electrocardiogram completed [email or web address] [facility] (For Internal Use Only) [address] [place], [address], 02/02/2016 17:08:08 11/09/2016 electrocardiogram completed [email or web address] [facility] (For Internal Use Only) [address] [place], [address], 12/10/2016 11:48:53 09/02/2017 electrocardiogram completed [email or web address] [facility] Orders (For Internal Use Only) [address] [place], [address], 10/17/2017 15:33:59 09/02/2017 event monitor completed [email or web address] Informatio n not available 01/24/2018 15:11:32 08/29/2017 XR, chest completed BARCODE Information no t available 04/20/2018 15:15:18 08/29/2017 electrocardiogram completed [facility] Informa tion not available 04/20/2018 15:15:18 07/03/2018 (NOEMY) ankle brachial index* completed [email or web address] [facility] ([place]) [address] [place], [address], 07/03/2018 13:00:10 06/27/2018 electrocardiogram completed [email or web address] [facility] (For Internal Use Only) [address] [place], [address], 07/27/2018 06:28:38 Procedure Notes None recorded. Medical [...] 6 64 /min 185.42 cm 27.4 kg/m2 98198.4 92951 g 101 mm[Hg] 67 mm[Hg] Chika Ann [facility] 6 10:43:37 Date Recorded Body height Body mass index (BMI) Body weight Heart rate Oxygen saturation Oxygen saturation in Arterial blood by Pulse oximetry Systolic blood pressure Diastolic blood pressure Provider Name and Address Organization Details Last Updated DateTime 7 185.42 cm 26.9 kg/m2 37319.8 4 g 56 /min 98 % 98 % 124 mm[Hg] 80 mm[Hg] Eloise Marquez [facility] 7 10:14:23 Date Recorded Body height Body mass index (BMI) Body weight Heart rate Systolic blood pressure Diastolic blood pressure Provider Name and Address Organization Details Last Updated DateTime 8 185.42 cm 28.8 kg/m2 79121.5 7 g 56 /min 112 mm[Hg] 60 mm[Hg] Loc Costa [facility] 8 12:21:14 Date Recorded Body height Body mass index (BMI) Body weight Heart rate Respiratory rate Oxygen saturation Oxygen saturation in Arterial blood by Pulse oximetry Systolic blood pressure Diastolic blood pressure Provider Name and Address Organization Details Last Updated DateTime 8 185.42 cm 28.8 kg/m2 83480.1 4 g 70 /min 16 /min 97 % 97 % 108 mm[Hg] 64 mm[Hg] Ailyn Larkinn [facility] 8 16:02:09 Date Recorded Body height Body mass index (BMI) Body weight Heart rate Systolic blood pressure Diastolic blood pressure Provider Name and Address Organization Details Last Updated DateTime 9 185.42 cm 28.9 kg/m2 08829.7 3 g 68 /min 112 mm[Hg] 70 mm[Hg] Mely Guzman [facility] 9 16:06:17 Social History Question Answer Notes LastModified by Organizat ion Details LastModified Time Tobacco Smoking Status Never Smoker [facility] 10/23/2013 14:33:52 Do You Have An Advance Directive? No [email or web address] Information not available 11/11/2015 What Is Your Level Of Caffeine Consumption? [...] available 11/12/2015 Seat Belts Used Routinely Yes Information not available 11/11/2015 Do You Have Smoke And Carbon Monoxide Detectors In Your Home? Yes [email or web address] Information not available 11/11/2015 Are You Passively Exposed To Smoke? No [email or web address] Information not available 11/11/2015 Sex: Unknown Functional Status Question Answer Note LastModified by Organizat ion Details LastModified Time What is your level of alcohol consumption? Occasional Information not available 04/30/2014 What is your exercise level? Occasional [email or web address] Information not available 11/11/2015 Mental Status None recorded. Family History Relationship Description Onset Age of this Age Resolved Age Notes LastModified by Organization Details LastModified Time Paternal Grandfather Malignant tumor of colon [email or web address] Not available 2015 14:27:24 Medical History Condition Response hypothyroidism N cancer N acid reflux/GERD Y blood clots N asthma N diabetes mellitus N other gastrointestinal issue COPD N high cholesterol N heart problems N high blood pressure N Past Encounters Encounter ID Performer Location Encounter Start Date Encounter Closed Date Diagnosis/Indication Diagnosis SNOMED-CT Code Diagnosis ICD10 Code Diagnosis Note [id number] Darnell De Anda MD [facility] [facility] [address] [facility],[address] [place] [address] 10/23/2013 14:19:43 10/26/2013 14:03:30 Palpitations 74842895 patient is status post atrial fibrillati on [...] that I may get him a monitor [id number] Darnell De Anda MD [facility] [facility] [address] [facility],[address] [place] [address] 10/31/2013 11:52:13 10/31/2013 15:33:17 Palpitations [id number] [id number] W MD [facility] [facility] [address] [address] 11/13/2013 09:47:14 11/13/2013 11:01:28 Supraventricular tachycardia 7067911 He has a history of ablation for what sounds like AVNRT. The rates and time since ablation do not favor recurrence of this arrhythmia , but we will need to retrieve recordings from his Card[facility]. I would also [facility] Sinus tachycardia 98984767 I have access to one recording from 11/11, which shows sinus tachycardi a. If this is the ongoing rhythm, then treatment will be with hydration, exercise, and perhaps a beta tish. [id number] MD VALDE[facility] on [address] [place] [address] 01/29/2014 16:19:08 01/29/2014 17:52:56 Sinus tachycardia 40705007 Monitoring confirmed sinus tachycardi a at the [...] has been years since this was done. [id number] MD VALDE[facility]aver[facility] on [address] [place] [address] 04/30/2014 16:18:19 05/01/2014 08:50:33 Supraventricular tachycardia 6288508 He has a history of ablation for what sounds like AVNRT, and is currently being treated for sinus tachycardi a recorded on monitoring . He is tolerating the propranolo l well and feels good. Since there is a second purpose of treating migraine, is more palatable to continue a young patient on this medication . Palpitations 10044665 Co ntrolled with medication s, no changes required. [id number] MD [facility] [address] [place] [address] 09/24/2014 10:00:48 09/24/2014 12:04:45 Supraventricular tachycardia 0238415 He has a history of ablation for what sounds like AVNRT, and is currently being treated for sinus tachycardi a recorded on monitoring . He is tolerating the propranolo l well and feels good. No changes required. We discussed the recent news regarding proton-pum p inhibitors and SC risk. There are some questions about that study since it was retrospect myke. His baseline CAD risk is small. 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 Migraine 20528170 This h as also improved since he has been on propranolo l. [id number] W Blake Patel MD [facility] [address] [facility] [address] [place] [address] 11/11/2015 12:19:01 11/12/2015 09:39:28 Sinus tachycardia 86258103 R00.0 Monitoring confirmed sinus tachycardi a at the time of his symptoms. He has had a good response to propranolo l for controllin g this problem. Palpitations 34025783 R0 0.2 Controlled with medication s, no changes required. [id number] Cristiano José MD [facility] [place] [facility] [address] [facility],[address] [place] [address] 11/12/2015 10:33:02 11/12/2015 11:08:06 Dysphagia 67037940 R13.10 39-year-ol d white male with recurrent solid mid cervical dysphagia 12 months. EGD September 2013 status post dilation with a 60 Korean dilator which helped. Only 1 eosinophil per high-power field Schedule EGD with dilation. Globus sensation 3050319 0 F45.8 Buckley's esophagus 3029 [address] K22.70 3 cm Buckley's negative for dysplasia on biopsies September 2013 Repeat EGD with biopsy to rule out dysplasia Gastroesop hageal reflux disease without esophagitis 967566232 K21.9 Stable acid reflux. Continue Nexium 40 mg daily Sinus tachycardia 379443 01 R00.0 Stable sinus tachycardi a controlled with propranolo l. Last seen by Dr. Patel November 11, 2015 [id number] Nik Patel MD [facility] [facility] [address] [address] 11/09/2016 09:54:52 11/09/2016 12:53:43 Supraventricular tachycardia 9231553 I47.1 He has a history of ablation for what sounds like AVNRT, and is currently being treated for sinus tachycardi a recorded on monitoring . He is tolerating the propranolo l well and feels good. No changes required.- Continue current meds. Palpitations 24675353 R0 0.2 Controlled with medication s, no changes required. [id number] MD [facility] [address] [facility] [place] [address] 09/02/2017 12:05:15 09/02/2017 12:47:49 Sinus tachycardia 75682605 R00.0 Monitoring confirmed sinus tachycardi a at the time of his symptoms. He has had a good response to propranolo l for controllin g this problem (minimal symptoms 3430-5393) . Gastroesop hageal reflux disease without esophagitis 746315153 K21.9 He reports this problem is controlled . Palpitations 98694277 R0 0.2 Recent aggravatio n.Pattern suggests ectopy. Supraventr icular tachycardia 9984530 I47.1 He has a history of ablation for what sounds like AVNRT, and is currently being treated for sinus tachycardi a recorded on monitoring .No apparent recurrence . [id number] MD VALDEMAR [facility]aver_ [facility] on [address] [place] [address] 10/25/2017 15:44:45 10/25/2017 17:26:37 Sinus tachycardia 18923182 R00.0 Reviewed monitor results.Glenis cope need less of propranolo l on some days especially with hot humid weather. He was actually bradycardi c in the daytime sometimes. -He may take a lower dose of propranolo l certain days. He will experiment to see what works for him. Palpitations 41704229 R0 0.2 Recent aggravatio n.Pattern suggests ectopy. This was confirmed by event monitoring for some of his symptoms. [id number] MD [facility] [facility] [address] [place] [address] 06/27/2018 15:23:22 06/27/2018 16:41:52 Sinus tachycardia 74417615 R00.0 Stable with medical therapy.Co ntinue propranolo l. Palpitations 37563594 R0 0.2 Pattern suggests ectopy. This was confirmed by event monitoring for some of his symptoms. Pain in lower limb [address]509 006 M79.669 He has been found to have lower extremity venous disease, and was advised that he should be checke for LE arterial disease as well. Good pulses. Has some cramping with walking. Health Concerns Section Related Observation LastModified by Organization Detai ls LastModified Time None Recorded Concern Status LastModified by Organization Details LastModified Time None Recorded Advance Directives Directive N: Payers Insurance Date Sequence Insurance Name Policy Number Policy Love Covered Member ID Love Member ID Guarantor Name 09/02/2017 1 [email or web address] [place] Ronny Nik Henderson [id number] Ronny Marsh Santiago 06/23/2019 1 [facility] () Ronny Maximo Santiago [id number] Conover Maximo Harpere Notes Date Note Type Note Provider Name [...] dysplasia. He was dilated with a 60 Korean dilator. Mid esophageal biopsies showed only 1 eosinophil per high-powered field. He denies weight loss, nausea, vomiting, diarrhea, constipation, hematochezia or melena Shilpa Brooks, LILIYA [address] [place] [address] [address], [place], [address], [facility] [place] [facility] [place] 11/12/2015 14:31:43 11/09/2016 text/html EP Office Visit He has a history of ablation for SVT, but persistent tachycardic palpitations which have proven to be associated with sinus tachycardia. He has been doing well with propranolol, with good relief from tachycardia. No changes 11/2016.Some medications reductions. No longer on nortryptyline. Nik Patel MD [address] [place] [address] [address], [place], [address], [facility] 11/09/2016 10:27:23 09/02/2017 text/html EP Office [...] moving. He went to the ER in [place]. ECG reported normal. Labs were ok. He went home, rested, Back to work Tuesday, but was still a bit lethargic.Since then he has had some irregularities but not as bad as tuesday. He has been having more palpitations for the past few months. Years ago he had an episode while working at [employer] that was similarly severe, with presyncope and severe fatigue. He has shoulder surgery 03/2017. Nik Patel MD [address] [facility] [address], [place], [address], [facility] 09/02/2017 12:44:08 10/25/2017 text/html EP Office VisitSVT -Previous history of ablation, not in [place] Palpitations -Persistent palpitations, tachycardia, [...] shoulder surgery 03/2017. Nik Patel MD [address] [place] [address] [address], [place], [address], [facility] 10/25/2017 22:26:40 06/27/2018 text/html EP Office VisitSVT -Previous history of ablation, not in [place] Palpitations -Persistent palpitations, tachycardia, [...] shoulder surgery 03/2017. Nik Patel MD [address] [facility] [address], [place], [address], [facility] 07/04/2018 20:37:53
--- OUTSIDE RECORDS SUMMARY | 2024-08-30 05:27 | XMS_ITS | Continuity of Care Document ---
Author Organization [facility] Address [address] [place] [address] Phone Care Team Providers Care Brickmason Name Role Phone Raoul Terry MD Unavailable Unavailable Procedures Procedure Date ECHO EXAM OF HEART DOPPLER ECHO EXAM, HEART DOPPLER COLOR FLOW ADD-ON OFFICE CONSULTATION ELECTROCARDIOGRAM, COMPLETE Advance Directives Directive Yes / No Effective Date File Name No Information Encounters Encounter Description Practice Location Reason(s) For Visit Diagnoses Date Provider Providers Copied on Encounter [facility] [employer] [facility], [address] [place] [address], [id number], tel:[phone] [place] No Information Harrison Silveira. [address] [place] [address], [id number], . tel:[phone] OFFICE CONSULTATION [facility] [employer] [facility], [address] [place] [address], [id number], tel:[phone] [facility] No Information Franklin Garza. [address] [place] [address], [id number], [place]. tel:[phone] Family History Family Member Type Diagnosis Age [...]
--- OUTSIDE RECORDS SUMMARY | 2024-08-30 05:27 | XMS_ITS | Encounter Summary ---
Author Organization [facility] Address [address] [place] [address] Care Team Providers Care Extruder Operator Horizontal Name Role Phone Zachary Kapoor MD Unavailable Erik Goncalves DO Unavailable Erik Goncalves DO Primary Care Provider [phone] Encounter Details Date Type Department Care Team (Late st Contact Info) Description 07/04/2024 Results Follow-Up [facility] Cardiology [address] [place] [address] David Hart MD [address] [place] [address] [facility] Heart and Coronary Arteries W Morphology when Performed Social History Tobacco Use Types Packs/Day Years [...] on filedocumented in this encounter Care Teams Extruder Operator Horizontal Relationship Specialty Start Date End Date Erik Goncalves DO [address] [place] [address] PCP - General Family Medicine 05/31/24 Zachary Kapoor MD [address] [facility], [address] [address] Consulting Physician Pain Management 09/23/23 Erik Goncalves DO [address] [facility], [address] [address] Family Medicine 09/30/23 documented as of this encounter
--- OUTSIDE RECORDS SUMMARY | 2024-08-30 05:27 | XMS_ITS ---
Author Organization [facility] Billing Info Address [address] [place] [address] [place] [address] Care Team Providers Care Hand Bindery Assembly Worker Name Role Phone GISSEL DOCKERY MD Primary Care Provider Unavaila GISSEL Castillo Unavailable [phone] REASON FOR VISIT Transition of care-ER Encounters Encounter Location Date Provider Diagnosis [id number] [facility] [address] [place], [place] [id number] 01/23/2024 GISSEL DOCKERY Plan Of Treatment No Information Progress Notes * Ronny CAMARGO WDOB:1975 ( 48 yo M)Acc No.[id number]:01/23/2024 Patient: Ronny MAHER :1975 A ge:48 Y S ex:Male Address:[address] [place] [address] [place], [address] Subjective: * Chief Complaints: * T ransition of care-ER * HPI: I NTERIM-HISTORY: Outpatient Visit T ype of Outpatient Facility: E mergency Room D maximino Mark santhosh of facility: [facility] ED D ate of Discharge: 1 1 [...] Date: Generated for Mechelle cunningham/Justino/eTransmitting on: 0 08/30/2024 05:27 AM CDT History and Physical Notes * HPI (History of Present Illness) Category Sub-Category Detail Notes Category Not es INTERIM-HISTORY Outpatient Visit Type of Outpati ent Facility:: Emergency Room Division: [facility] Name of facility:: [facility] ED Date of Discharge:: 01/18/2024 1st Follow-up [...]
--- OUTSIDE RECORDS SUMMARY | 2024-08-30 05:28 | XMS_ITS | Encounter Summary ---
Author Organization [facility] Healthcare Address [address] [place] [address] Care Team Providers Care Medical Stenographer Name Role Phone [facility] Primary Care Provider [phone] Zachary Kapoor MD Unavailable Erik Goncalves DO Unavailable Erik Goncalves DO Primary Care Provider [phone] Encounter Details Date Type Department Care Team (Late st Contact Info) Description 05/07/2024 Telephone [facility] Pain [address] [address] Sirena Alejandre RN Social History [...] on filedocumented in this encounter Care Teams Medical Stenographer Relationship Specialty Start Date End Date [facility], [facility] [address] [place], [place] [address] PCP - General 09/14/23 05/30/24 Erik Goncalves DO [address] [place] [address] PCP - General Family Medicine 05/31/24 Zachary Kapoor MD [address] [facility], [address] [address] Consulting Physician Pain Management 09/23/23 Erik Goncalves DO [address] [facility], [address] [address] Family Medicine 09/30/23 documented as of this encounter
--- OUTSIDE RECORDS SUMMARY | 2024-08-30 05:28 | XMS_ITS ---
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 Name Role Phone JAYLA DOCKERY MD Primary Care Provider Unavaila JAYLA Castillo Unavailable [phone] REASON FOR VISIT PE Medications Medication SIG (Take, Route, Frequency, Duration) Notes Start Date End Date Status Baclofen 10 MG 1 tablet with food o r milk Orally Three times a day prn for 30 day(s) 11/02/2019 Active Nifedipine/ Lidocaine Nifedipine 0.3%, Lidocaine 1.5%, Lanolin 42 grams, Vaseline 75 grams Apply ointment to affected area Three times daily for 6 weeks 07/13/2022 Active Nexium 40 MG 1 capsule Orally Onc e a day for 30 day(s) Active Flomax 0.4 MG 1 capsule Orally Onc e a day for 90 day(s) Active Zyrtec Allergy 10 MG 1 tablet Orally Onc e a day for 30 day(s) Active Corlanor 5 MG 1 tablet with meals Orally Twice a day for 30 day(s) Active Fluticasone-Salmeterol 250-50 MCG/ACT 1 puff Inhalation Twice a day 09/25/2021 Active Encounters Encounter Location Date Provider Diagnosis [id number] [address] [place], [place] [id number] 04/14/2023 JAYLA DOCKERY Elevated LDL cholesterol level E78.00 ; Well adult exam Z00.00 ; Elevated hemoglobin A1c R73.09 ; GERD without esophagitis K21.9 ; Palpitations R00.2 ; Seasonal allergies J30.2 ; Hereditary hemochromatosis E83.110 ; Moderate major depression F32.1 ; Dietary counseling and surveillance Z71.3 ; Lumbar degenerative disc disease M51.36 and Benign prostatic hyperplasia with lower urinary tract symptoms N40.1 Assessments Encounter Date Diagnosis (ICD Code) Assessment Notes Treatment Notes Treatment Clinical Notes Section Notes 04/14/2023 Elevated LDL cholesterol level (ICD-10 - E78.00) Decrease cholesterol in diet. Less red meat, junk food. Increase fresh vegetables. 04/14/2023 Well adult exam (ICD-10 - Z00.00) PATIENT COUNSELED ON SBE/ROBERTA, SUNBLOCK, NUTRITION, EXERCISE, ROUTINE VISION AND DENTAL CHECKS, AND IF APPLICABLE - THE NEED FOR COLONOSCOPY, MAMMOGRAPHY, BONE DENSITY, AND IMMUNIZATIONS. 04/14/2023 Elevated hemoglobin A1c (ICD-10 - R73.09) Work on lowering sugar/fat/carbs in diet. 04/14/2023 GERD without esophagitis (ICD-10 - K21.9) Dietary avoidance discussed for reflux. Continue nexium 04/14/2023 Palpitations (ICD-10 - R00.2) [facility] 04/14/2023 Seasonal allergies (ICD-10 - J30.2) Continue antihistamine for seasonal allergies and add daily flonase if needed for nasal congestion, post nasal drip related to allergies. 04/14/2023 Hereditary hemochromatosis (ICD-10 - E83.110) Continue with hematology and donating blood quarterly 04/14/2023 Moderate major depression (ICD-10 - F32.1) Continue light therapy. 04/14/2023 Dietary counseling and surveillance (ICD-10 - Z71.3) 04/14/2023 Lumbar degenerative disc disease (ICD-10 - M51.36) 04/14/2023 Benign prostatic hyperplasia with lower urinary tract symptoms (ICD-10 - N40.1) Will give trial of flomax for urination- if not helping will refer to [facility]. 04/14/2023 Other Plan Of Treatment Medication Medication Name Sig Start Date Stop Date Notes Flomax 0.4 MG 1 capsule Orally Once a day for 90 day(s) Treatment Notes Assessment Notes Elevated LDL cholesterol level Decrease cholesterol in diet. Less red meat, junk food. Increase fresh vegetables. Well adult exam PATIENT COUNSELED ON SBE/ROBERTA, SUNBLOCK, NUTRITION, EXERCISE, ROUTINE VISION AND DENTAL CHECKS, AND IF APPLICABLE - THE NEED FOR COLONOSCOPY, MAMMOGRAPHY, BONE DENSITY, AND IMMUNIZATIONS. Elevated hemoglobin A1c Work on lowering sugar/fat/carbs in diet. GERD without esophagitis Dietary avoidan ce discussed for reflux. Continue nexium Palpitations Continue Corlanor an d [facility]. Seasonal allergies Continue antihistami ne for seasonal allergies and add daily flonase if needed for nasal congestion, post nasal drip related to allergies. Hereditary hemochromatosis Continue with hematology and donating blood quarterly Moderate major depression Continue light therapy. Benign prostatic hyperplasia with lower urinary tract symptoms Will give trial of flomax for urination- if not helping will refer to [facility]. Progress Notes * Ronny CAMARGO WDOB:1975 ( 48 yo M)Acc No.[id number]:04/14/2023 PROGRESS NOTE Patient: Ronny MAHER W Provider: Ronda Dockery MD :1975 A ge:47 Y S ex:Male Date:04/14/2023 C HN#:[id number] Address:[address] [place] [address] [facility] Pcp:JAYLA DOCKERY MD Subjective: * Chief Complaints: * 1 . PE. * HPI: D epression Screening: PHQ-2 (2015 Edition) L ittle interest or pleasure in doing things??Not at all F eeling down, depressed, or hopeless? N ot at all T otal Score 0 P atient History: Here for pe 05/04 - rectal pain, shoulder injxn?, flomax? when does he leave [place] [place] [facility] . 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 H yperglycemia: 04/01 a1c 5.5. 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 G ERD: well controlled on nexium - has tried to get off and was miserable used to throw up at night in his sleep 10 yrs ago EGD 2010 GERD/[facility], 2016. D epression: SAD - does light therapy daily, does counseling - 03/31/22 - worst day - has never been on med and would not do. P alpitations: Seeing cards at the [place], had SVT- ablation now on Corlanor was on propranolol- tapering off r/t fatigue. B PH: AUA gets up 3x/night ( told him was gallbladder) keeps urinal at bedside for 2 years - has not seen urology brother with enlarged prostate since his s. A llergic rhinitis: zyrtec and flonase daily, controlled. W eight change: Down 6 pounds, attributes to work stress that decreases appetite bmi 28. G eneral Hematology: dx: hemochromatosis Dr Oneill and he is to give blood every every 3 mo h/o anemia 04/01 iron 152, ferritin 92. S nael: Last PT for the right shoulder /3, had shoulder surgery on 01/30?, 2nd surgery, 1st was slap repair, this time they connected labrum to bicep, replaced anchors. Doing better, not 100% yet. Still doing home exercises. had 2 anchors placed 03/2017. 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 [place] for [place] pain, pmh nerve ablation [place] 04/01 -asking for steroid injxn. A nkle: ongoing ankle issues on right since sprain issues with left as well will send to PT - then if not improving ortho. F irst Point of Contact Screening: Do any of the following apply to you? N ew rash or open sores N o F ever and/or chills in the past 7 days N o C ough N o M uscle or body aches (other than from an injury) N o S ore throat N o I n the past 3 weeks, have you or a close contact traveled outside the [place] and you are now ill? N o * ROS: G eneral ROS: Constitutional: N egative for fatigue, weight change. R osman/Pulmonology: N egative for cough, shortness of breath. C ardiology: N egative for chest pain, palpitations. G astroenterology: N egative for abdominal pain, constipation, diarrhea, nausea, vomitng. M usculoskeletal: N egative for joint pain, muscle pain. P sychology: N egative for anxiety, depressed mood. * Medical History: * Medications: T aking Baclofen 10 MG Tablet 1 tablet with food or milk Orally Three times a day prn , Taking Corlanor 5 MG Tablet 1 tablet with meals Orally Twice a day , Taking Flomax 0.4 MG Capsule 1 capsule Orally Once a day , Taking Fluticasone-Salmeterol 250- 50 MCG/ACT Aerosol Powder Breath Activated 1 puff Inhalation Twice a day , Taking Nexium 40 MG Capsule Delayed Release 1 capsule Orally Once a day , Taking Nifedipine/ Lidocaine Nifedipine 0.3%, Lidocaine 1.5%, Lanolin 42 grams, Vaseline 75 grams Ointment Apply ointment to affected area Three times daily , Taking Zyrtec Allergy 10 MG Tablet 1 tablet Orally Once a day Objective: * Vitals: * Examination: G eneral Examination: Constitutional: N AD, appears comfortable. Derm/Integumentary: n ormal, warm, no rash in visible areas. HEENT: e ye: pupils equal, round, and reactive, conjunctiva clear ENMT: lips without lesions, oropharynx clear . Neck: n winston: trachea midline, no masses, no thyromegaly.? Respiratory: u nlabored respiration, clear to auscultation, no wheezes/rhonchi. Heart: r egular rate and rhythm, normal S1S2. Gastrointestinal: s oft without tenderness, masses, or megaly . Musculoskeletal: supple neck, normal gait. Psych: a ffect normal, alert and oriented x 3 . ? Assessment: * Assessment: 1. W ell adult exam - Z00.00 (Primary) 2 . E levated LDL cholesterol level - E78.00 3 . E levated hemoglobin A1c - R73.09 4 . G ERD without esophagitis - K21.9 5 . P alpitations - R00.2 6 . S easonal allergies - J30.2 7 . H ereditary hemochromatosis - E83.110 ?8. M oderate major depression - F32.1 9 . D ietary counseling and surveillance - Z71.3 1 0. L umbar degenerative disc disease - M51.36 1 1. B enign prostatic hyperplasia with lower urinary tract symptoms - N40.1 Plan: * Treatment: 2. E levated LDL cholesterol level Notes: Decrease cholesterol in diet. Less red meat, junk food. Increase fresh vegetables. ? 3. E levated hemoglobin A1c Notes: Work on lowering sugar/fat/carbs in diet. 4. G ERD without esophagitis Notes: Dietary avoidance discussed for reflux. Continue nexium 5. P alpitations Notes: Continue [facility]. 6. S easonal allergies Notes: Continue antihistamine for seasonal allergies and add daily flonase if needed for nasal congestion, post nasal drip related to allergies. 7. H ereditary hemochromatosis Notes: Continue with hematology and donating blood quarterly 8. M oderate major depression Notes: Continue light therapy. 9. B enign prostatic hyperplasia with lower urinary tract symptoms Start Flomax Capsule, 0.4 MG, 1 capsule, Orally, Once a day, 90 day(s), 90 Capsule, Refills 1. Notes: Will give trial of flomax for urination- if not helping will refer to [facility] [facility]. * Care Plan Details* * This progress note has not b een verified nor is it considered complete until locked and signed by the provider. 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 [place], [facility] nerve ablation [place] 04/01 -asking for steroid injxn Shoulder Last PT for the right shoulder /, had shoulder surgery on 01/30?, 2nd surgery, 1st was slap repair, this time they connected labrum to bicep, replaced anchors. Doing better, not 100% yet. Still doing home exercises. 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 Depression SAD - does light therapy daily, does counseling - 03/31/22 - worst day - has never been on med and would not do Allergic rhinitis zyrtec and flonase daily, controlled Weight change Down 6 pounds, attributes to work stress that decreases appetite bmi 28 BPH AUA gets up 3x/night ( told him was gallbladder) keeps urinal at bedside for 2 years - has not seen urology brother with enlarged prostate since his 22 Patient History Here for pe 05/04 - rectal pain, shoulder injxn?, flomax? when [facility] [place] [facility] [place] Hyperglycemia 04/01 a1c 5.5 General Hematology dx: hemochromatosis Dr Oneill and he is to give blood every every 3 mo h/o anemia 04/01 iron 152, ferritin 92 First Point of Contact Screening Do any of the following apply to you? New rash or open sores: No Fever and/or chills in the past 7 days: No Cough: No Muscle or body aches (other than from an injury): No Sore throat: No In the past 3 weeks, have yo u or a close contact traveled outside the [place] and you are now ill? : No Examination Category Sub-Category Detail Notes Category Not es General Examination HEENT: eye: pupils equal, round, and reactive, conjunctiva clear ENMT: lips without lesions, oropharynx clear Neck: neck: trachea midlin e, no masses, no thyromegaly Heart: regular rate and rhy thm, normal S1S2 Respiratory: unlabored respiratio n, clear to auscultation, no wheezes/rhonchi Gastrointestinal: soft without tendern ess, masses, or megaly Constitutional: NAD, appears comfort able Derm/Integumentary: normal, warm, no deep h in visible areas Musculoskeletal: supple neck, normal gait Psych: affect normal, alert and oriented x 3
--- OUTSIDE RECORDS SUMMARY | 2024-08-30 05:28 | XMS_ITS | Continuity of Care Document ---
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 [address] [place] [address], [id number] , [place]. tel:[phone] EST PATNT OV DTL EXAM [facility], [address] [place] [address], [id number], [place] tel:[phone] [facility] Left foot painAchilles tendon painNumbness and tingling of left legAcute midline low back pain with left-sided sciaticaWeakness of left footAcute left ankle pain 6 Moshe Bay. [address], [id number] , [place]. tel:[phone] Referring Provider: Alex Brock [address] [place] [address], [id number] . tel:[phone] EST PATNT,OV,PROB FOCUSED [facility], [address] [place] [address], [id number], [place] tel:[phone] [facility] Follow Up of rt knee (chief complaint) Body mass index (BMI) 25.0-25.9, adultComplex tear of medial meniscus, current injury, right knee, subsequent encounter 6 Moshe [place]. [address], [id number] , [place]. tel:[phone] Referring Provider: Alex Brock [address] [place] [address] [address], [place], [address] . tel:[phone] [facility], [address] [place], [place], [id number], [place] tel:[phone] [facility] Follow Up of rt knee (chief complaint) Encounter for other orthopedic aftercareOther tear of medial meniscus, current injury, right knee, subsequent encounter 6 Petty Johnson. [address] [facility] [address], [address], [place], [place], [id number] , [place]. tel:[phone] Referring Provider: Alex Brock, [address] [address], [place], [address] . tel:[phone] [facility], [address] [place], [place], [id number], [place] tel:[phone] [facility] Follow Up of rt knee (chief complaint) Body mass index (BMI) 25.0-25.9, adultEncounter for other orthopedic aftercare 5 Moshe Bay. [address], [id number] , [place]. tel:[phone] Referring Provider: Alex Brock, [address] [address], [place], [address] . tel:[phone] [facility], [address] [place] [address], [id number], [place] tel:[phone] [facility] Follow Up of rt knee (chief complaint) Medial meniscus tear, right, initial encounterEncounter for other orthopedic aftercare 5 [place]. [address], [id number] , [place]. tel:[phone] Referring Provider: Alex Brock, [address] [facility] [address], [place], [address] . tel:[phone] [facility], [address] [place] [address], [id number], [place] tel:[phone] [facility] Medial meniscus tear, right, initial encounter Feb-0 5 Alex. [address] [facility], [address], [place], [place], [id number] , [place]. tel:[phone] [facility], [address], [place], [place], [id number], [place] tel:[phone] [facility] No Information Feb-0 5 Ivymatt Johnson. [address] [facility], [address], [place], [place], [id number] , [place]. tel:[phone] Referring Provider: Alex Brock, [address] [place] [address], [place], [address] . tel:[phone] [facility], [address] [facility], [place], [place], [id number], [place] tel:[phone] [facility] No Information 5 Moshe Bay. [address] [facility], [address], [id number] , [place]. tel:[phone] Referring Provider: Alex Brock, [address] [place] [address], [place], [address] . tel:[phone] EST PATIENT VISITOV [facility], [address], [place], [place], [id number], [place] tel:[phone] [facility] Follow Up of rt knee (chief complaint) Acute meniscal tear, medial Sep-1 0 5 Moshe [place]. [address] [facility], [address], [place], [place], [id number] , [place]. tel:[phone] Referring Provider: Alex Brock, [address] [facility] [address], [place], [address] . tel:[phone] NEW PATNT OV DTL EXAM [facility], [address] [facility], [place], [place], [id number], [place] tel:[phone] [facility] rt knee (chief complaint) Knee osteoarthritisPain in joint involving lower leg 5 [place]he [place]. [address] [facility], [address], [place], [id number] , . tel:[phone] Referring Provider: Alex Brock [address] [place] [address] [address], [place], [address] . tel:[phone] Family History Family Member Type Diagnosis Age At Onset Brother Problem (finding) alcoholism Brother Problem (finding) depression Brother Problem (finding) drug dependency Immunizations Vaccine Date Status Comments Influenza, seasonal, injectable administered Note: Invalid docume nted admin date was . ; Source: Other Provider Payers Payer name Insurance type Covered libertarian ID Authoriza tion(s) No Information Social History [...] Referral Referred To: Mason Hart MD [address] [facility] [address] [place], [place], [phone] Ordered: Referrals: Orthopedic Surgery. Mason Hart MD. Location: [facility]. Evaluate and treat ordered History Of Present Illness Encounter Date Complaint History Of Prese nt Illness Follow Up of rt knee Follow Up of rt knee Follow Up of rt knee Follow Up of rt knee Follow Up of rt knee rt knee Functional Status Date Functional Assessmen t No Information Instructions Date Instruction Additional Infor david - Patient education available at www.[email or web address] on the Education tab Related to Acute left ankle pain - Medication refills must be requested before 4pm [place] through Tuesday Related to Acute left ankle pain - Patient education available at [employer] on the Education tab Related to Acute left ankle pain - Medication refills must be requested before 4pm Tuesday through Tuesday Related to Acute left ankle pain - Patient education available at [employer] on the Education tab Related to Weakness of left foot - Medication refills must be requested before 4pm Tuesday through Tuesday Related to Weakness of left foot Dietary management e ducation, guidance, and counseling Related to Body mass index (BMI) 25.0-25.9, adult - Patient education available at [employer] on the Education tab Related to Complex tear of medial meniscus, current injury, right knee, subsequent encounter - Medication refills must be requested before 4pm Tuesday through Tuesday Related to Complex tear of medial meniscus, current injury, right knee, subsequent encounter - Patient education available at [employer] on the Education tab Related to Other tear of medial meniscus, current injury, right knee, subsequent encounter - Medication refills must be requested before 4pm Tuesday through Tuesday Related to Other tear of medial meniscus, current injury, right knee, subsequent encounter - Patient education available at [employer] on the Education tab Related to Encounter for other orthopedic aftercare - Medication refills must be requested before 4pm Tuesday through Tuesday Related to Encounter for other orthopedic aftercare Dietary management e ducation, guidance, and counseling Related to Body mass index (BMI) 25.0-25.9, adult - Patient education available at [employer] on the Education tab Related to Medial meniscus tear, right, initial encounter - Medication refills must be requested before 4pm Tuesday through Tuesday Related to Medial meniscus tear, right, initial encounter - Patient education available at [employer] on the Education tab Related to Acute meniscal tear, medial - Medication refills must be requested before 4pm Tuesday through Tuesday Related to Acute meniscal tear, medial Dietary management e ducation, guidance, and counseling Related to Overweight - Patient education available at [email or web address] on the Education tab Related to Knee osteoarthritis - Medication refills must be requested before 4pm Tuesday through Tuesday Related to Knee osteoarthritis Assessments Type Assessment Date assessment Lumbar disc herniation 17 assessment Acute bilateral low back pain wi thout sciatica Patient Care Teams Name Effective Dates (start - stop) Status Members No Information
--- OUTSIDE RECORDS SUMMARY | 2024-08-30 05:28 | XMS_ITS | Patient Health Record ---
Author Organization [facility] Billing Info Address [address] [place] [address] [place] [address] Care Team Providers Care Dispatcher Chief Coal Slurry Name Role Phone JAYLA DOCKERY MD Primary Care Provider JAYLA Jacob Unavailable [phone] Allergies Allergen (clinical drug ingredient) Drug/Non Drug Allergy documented on EMR Reaction Allergy Type Onset Date Status seasonal (uncoded) Unknown Allergy A ctive Reason For Referral No Information Medications Medication SIG (Take, Route, Frequency, Duration) Notes Start Date End Date Status Corlanor 5 MG 1 tablet with meals Orally Twice a day for 30 day(s) Active Baclofen 10 MG 1 tablet with food o r milk Orally Three times a day prn for 30 day(s) 11/02/2019 Active Fluticasone-Salmeterol 250-50 MCG/ACT 1 puff Inhalation Twice a day 09/25/2021 Active Nifedipine/ Lidocaine Nifedipine 0.3%, Lidocaine 1.5%, [...] e a day for 30 day(s) Active Immunizations Vaccine Route Administration Date Status Comme nts zCOVID-19 (Pfizer-BioNTech Past vaccine of unknown type) Unknown 11/14/2020 Administered zCOVID-19 (Pfizer-BioNTech Past vaccine of unknown type) IM Intramuscular 12/05/2020 Administered Social History Tobacco Status: Question Answer Notes Patient is a non tobacco user Problems Problem Type SNOMED Code ICD Code Onset Dates Problem Status W/U Status Risk Notes Problem 28771564 Hereditary hemochromatosis (E83.110) Active confirmed Problem 30289328 Palpitations (R00.2) Active confirmed He is minimally symptomatic. I suspect when he discontinued his beta tish he was having a rebound effect and I told him that if he wanted to try to wean off of it again we can try more slowly. But he also takes for migraine headache so I left him on it. Problem 232334250 Nocturia (R35.1) Active confirmed Problem 7979859030857 Benign prostatic hyperplasia with lower urinary tract symptoms (N40.1) Active confirmed Problem 783945920 Seasonal allergies (J30.2) Active confirmed Problem 03816453 Lumbar degenerative disc disease (M51.36) Active confirmed Problem 609627601 Elevated hemoglobin A1c (R73.09) Active confirmed Problem 726916537 GERD without esophagitis (K21.9) Active confirmed Problem 365553895 Abnormal ECG (R94.31) Active confirmed His resting ECG has poor R-wave progression, I ordered an echocardiogram to assess LV function but he reports no angina Problem 27320547 Anal fissure (K60.2) Active confirmed Problem 431764285 Hepatic steatosis (K76.0) Active confirmed Problem 4469257 SVT (supraventricul ar tachycardia) (I47.1) Active confirmed He is status post RFA for likely PSVT although records are not available. I ordered an echocardiogram and assess LV function. This is normal we will continue with his current treatment plan of beta tish. 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 THRTCAL[facility]) 04/01/2022 US- ABDOMEN LIMITED (96937)([facility]-ABDL) 0 09/28/2021 TSH ([id number]) 09/11/2019 CBC With Differential/Platelet ([id number] 9) 09/11/2019 Vitamin D, 25-Hydroxy ([id number]) 2019 Lipid Panel ([id number]) 06/08/2019 Lipid Panel (LC-[id number]) 09/11/2019 Comp. Metabolic Panel (14) (LC-538064) 0 09/11/2019 Fe + TIBC + Bereket + Transf (-[id number]) 09/11/2019 XRAY- L SPINE COMPLETE W/BENDING (68707) ([facility]-LUM7)DUP 09/11/2019 Future Test Test Name Order Date Hemoglobin A1c ([id number]) 02/23/2023 TSH ([id number]) 02/23/2023 CBC With Differential/Platelet ([id number] 9) 02/23/2023 Lipid Panel w/ Chol/HDL Ratio (LC-773844 ) 02/23/2023 Comp. Metabolic Panel (14) (LC-651953) 1 04/25/2022 Insurance Providers Payer Name Payer Address Payer Phone Subscriber Number Group Number Insured Name Patient Relationship to Insured Coverage Start Date Coverage End Date [facility] TO [id number] [address] [place], [place] [id number] Ronny Henderson Self - patient is the insured 8 2 Medications Administered Medication Instructions Date of Administration Dosage Notes zMethylprednisolone Acetate 80 mg (Depo Medrol) 09/11/2019 80 mg zMethylprednisolone Acetate 80 mg (Depo Medrol) 11/02/2019 80 mg MethylPREDNISolone Acetate 11/19/2021 80 mg verf by vj MethylPREDNISolone Acetate 04/01/2022 80 mg verified RH Ketorolac (Toradol) 11/02/2019 60 mg Medical (General) History Medical History History ICD Code tachycardia cholecystectomy colitis plantar facitis cardiac oblation torn ligaments R foot knee sx shoulder sx Renal US 03/2019 was wnl. ca score 07/01 - zero Esophageal reflux Hereditary Hemochromotosis Surgical History Surgery Date(Month/Year) colonoscopy 2020 cardiac oblation 2007 plantar facitis L foot 2010 right shoulder surgery 03/2017 right knee meniscus removed 2014 cholecystectomy 2002 Hospitalization History Reason Date(Month/Year) see surgical history colitis 2007
--- OUTSIDE RECORDS SUMMARY | 2024-08-30 05:28 | XMS_ITS | Patient Health Record ---
Author Organization [facility] Address [address] [place] [address] Care Team Providers Care Manager Assurance Name Role Phone Alex Ivy MD Unavailable [...] Problem Status W/U Status Risk Notes Problem 02962481 Other chronic pain (G89.29) Active confirmed Problem 874505988 Lumbago with sciatica, left side (M54.42) Active confirmed Problem 801442965 Idiopathic neuropathy (G60.9) Active confirmed Problem 88161064 Disc degeneration, lumbar (M51.36) Active confirmed Plan Of Treatment No Information Insurance Providers Payer Name Payer Address Payer Phone Subscriber Number Group Number Insured Name Patient Relationship to Insured Coverage Start Date Coverage End Date [employer] [address] [place] [address] [phone] [id number] Ronny Henderson Self - patient is the insured Medical (General) History Medical History History ICD Code Abnormal heart beat Heartburn/Acid Reflux(GERD) depression Surgical History Surgery Date(Month/Year) gallbladder Heart Surgery
--- OUTSIDE RECORDS SUMMARY | 2024-08-30 05:28 | XMS_ITS | Patient Health Record ---
Author Organization [facility] Address [address] [place] [id number] Care Team Providers Care Crane Assembler Name Role Phone Undecided, Undecided Primary Care Provider Unava Anthony Camarena Unavailable [phone] Zach Bynum MD Unavailable Unavailable Allergies No [...] Problem Status W/U Status Risk Notes Problem 20984594 Other chronic pain (G89.29) Active confirmed Problem 53904261941265718 Injury of left peroneal nerve, subsequent encounter (S84.12XD) Active confirmed Problem 128755469240515 Complex regional pain syndrome type 2 of left lower extremity (G57.72) Active confirmed Plan Of Treatment No Information Insurance Providers Payer Name Payer Address Payer Phone Subscriber Number Group Number Insured Name Patient Relationship to Insured Coverage Start Date Coverage End Date [facility] [address] [place] [phone] [id number] Ronny Henderson Self - patient is the insured Medical (General) History Medical History History ICD Code Back pain; Labral Tear; Plantar fasciitis; Surgical History Surgery Date(Month/Year) Back surgery; 01/08/2019 Cholecstectomy; 2002 Knee surgery; 01/08/2019 left foot; 01/08/2019 Shoulder surgery; 01/08/2019 Hospitalization History Reason Date(Month/Year) see surgical history
--- OUTSIDE RECORDS SUMMARY | 2024-08-30 05:29 | XMS_ITS ---
Author Organization [facility] Billing Info Address [address] [place] [address] [place] [address] Care Team Providers Care Chemical Plant Operator Supervisor Name Role Phone JAYLA DOCKERY MD Primary Care Provider Unavaila JAYLA Castillo Unavailable [phone] REASON FOR VISIT NO SHOW TO [facility] APPT. Encounters Encounter Location Date Provider Diagnosis [id number] [address] [place], [place] [id number] 04/14/2023 JAYLA DOCKERY Plan Of Treatment No Information Progress Notes * Ronny CAMARGO WDOB:1975 ( 47 yo M)Acc No.[id number]:04/14/2023 Patient: Ronny MAHER :1975 A ge:47 Y S ex:Male Address:[address] [place] [address] [place], [address] * true * Date: Generated for Printi ng/Faxing/eTransmitting on: 0 08/30/2024 05:28 AM CDT
--- OUTSIDE RECORDS SUMMARY | 2024-08-30 05:29 | XMS_ITS | Data Portability ---
Author Organization [place] [facility] [email or web address], Main Office Address [address] [place] [address] Care Team Providers Care Human Geography Faculty Member Name Role Phone [facility] Primary Care Provi ede Assessment No assessment recorded. Plan of Treatment Reminders Order Date Submit Date Provider Last Modified By Organization Details Last Modified Time Details Appointments None recorded. Lab None recorded. Referral None recorded. Procedures None recorded. Surgeries None recorded. Imaging None recorded. Medication Orders Botox 100 unit injection 2024 025 [facility], [address] [place] [address], [address], 16:47:57 Botox 100 unit injection 2023 024 [facility], [address] [place] [address], [address], 15:54:10 Patient TargetsNo targets recorded. Patient Instructions Encounter Date Encounter Id Patient Instructions Last Modified By Organization Details Last Modified Time 10/03/2023 [id number] we will bring hi m back for Botox injections Not available 10/03/2023 14:52:00 10/27/2023 [id number] 10 units of Boto x were infiltrated into each masseter muscle. Not available 10/27/2023 15:53:10 02/09/2024 [id number] Botox 10 units per side were infiltrated into the masseter muscle Not available 02/09/2024 17:14:33 05/03/2024 [id number] 25 units of Boto x was injected into the masseter muscle bilaterally Not available 05/03/2024 17:06:32 Reason for Referral None Reported. Problems Name Problem SNOMED Code Status Onset Date Resolution Date Notes Provider Name and Address Organization Details Recorded Time Pain of temporomand ibular joint 46674200 Active 2023 French Merlos MD [address] [facility], [address], [place], [address], [employer] [facility] 14:51:44 Bilateral temporomand ibular joint arthritis 8414644300774 9103 Active 2023 French Merlos MD [address] [facility], [address], [place], [address], [employer] [facility] 16:47:47 Problem Notes None recorded. Medical Equipment None Reported. Allergies Allergen ID Allergen Name Allergen Category Reaction Reaction Severity Criticality Documentation Date Start Date Code Code System Note Provider Name and Address Organization Details Recorded Time 88169 propranol ol medicatio n dizziness Not available Not available 09/29/2023 8787 RxNorm kelly rgy Jennifer Luo null, [facility] 4 15:10:09 Medications Name Sig Start Date [...] Not Available Not Available No t Available meloxicam 7.5 mg tablet TAKE 1 TABLET BY MOUTH DAILY active Not Available Not Available No t [...] active Not Available Not Available Not Available methylpre dnisolone 4 mg tablets in a dose pack FOLLOW PACKAGE DIRECTIO NS 08/09 completed Not Available Not Available Not Available cefdinir 300 mg capsule 08/09 completed Not Available Not Available Not Available amoxicill in 875 mg-potass ium clavulana te 125 mg tablet TAKE 1 TABLET BY MOUTH TWICE DAILY FOR 10 DAYS 08/09 completed Not Available Not Available Not Available Botox 100 unit injection Take 20 units by injectio n route. 2024 active Not Available Not Available Not Avai [...] Address Organization Details Last Updated DateTime 10/03/2023 09152.77 g 28.2 kg/m2 185.42 cm 97.8 [degF] Gissel Richardson RN [facility] 10/03/2023 14:35:05 Date Recorded Body height Body mass index (BMI) Body weight Body temperature Provider Name and Address Organization Details Last Updated DateTime 10/27/2023 185.42 cm 28.1 kg/m2 63873.46 g 97.7 [degF] Leda [facility] 10/27/2023 15:06:31 Date Recorded Body height Body mass index (BMI) Body weight Body temperature Provider Name and Address Organization Details Last Updated DateTime 02/09/2024 185.42 cm 28.4 kg/m2 75079.36 g 98 [degF] Gissel Richardson RN [facility] 02/09/2024 16:52:41 Date Recorded Body height Body mass index (BMI) Body weight Provider Name and Address Organization Details Last Updated DateTime 05/03/2024 185.42 cm 28.8 kg/m2 69741.14 g Gissel Rcihardson RN [facility] 05/03/2024 17:01:22 Date Recorded Body height Body mass index (BMI) Body weight Body temperature Provider Name and Address Organization Details Last Updated DateTime 08/09/2024 185.42 cm 28.2 kg/m2 38046.77 g 97.6 [degF] Gissel Richardson RN [facility] 08/09/2024 16:13:21 Social History None recorded. Functional Status Question Answer Note LastModified by Organization D etails LastModified Time What is your level of alcohol consumption? Moderate [id number] Information not available 09/29/2023 Mental Status None recorded. Family History Relationship [...] SNOMED-CT Code Diagnosis ICD10 Code Diagnosis Note [id number] [facility] [address] [place] [address] 10/03/2023 14:28:38 10/03/2023 16:24:44 Pain of temporomandibular joint 41394767 M26.590 [id number] [facility] [address] [place] [address] 10/27/2023 15:00:25 11/02/2023 13:33:21 Bilateral temporomandibular joint arthritis 6751311896 9199538 M26.200 [id number] French Merlos MD [facility] [address] [place] [address] 02/09/2024 16:50:31 03/07/2024 09:35:55 Pain of temporomandibular joint 38223855 M26.629 Bilateral temporomandibular joint arthritis 1160779032 6915242 M26.609 [id number] MD [facility] [address] [place] [address] 05/03/2024 16:50:34 05/08/2024 10:44:15 Bilateral temporomandibular joint arthritis 5200683031 7197622 M26.545 [id number] French Merlos MD [facility] [address] [place] [address] 08/09/2024 15:48:40 08/10/2024 15:51:19 Bilateral temporomandibular joint arthritis 2588866727 1098291 M26.643 Health Concerns Section Related Observation LastModified by Organization Detai ls LastModified Time None Recorded Concern Status LastModified by Organization Details LastModified Time None Recorded Advance Directives Directive None Recorded Payers Encounter Date Sequence Insurance Name Policy Number Policy Love Covered Member ID Love Member ID Guarantor Name 10/03/2023 1 [employer] () Ronny W Santiago [id number] Ronny W Santiago 10/27/2023 1 [employer] () Ronny W Santiago [id number] Ronny W Santiago 02/09/2024 1 [employer] () Ronny W Santiago [id number] Ronny W Santiago 05/03/2024 1 [employer] () Ronny W Santiago [id number] Ronny W Santiago 08/09/2024 1 [employer] () Ronny W Santiago [id number] [facility] [place] Notes Date Note Type Note Provider Name and Address Organization Details Recorded Time 10/03/2023 text/html this patient has bruxism and has bilateral TMJ arthralgia. He has been helped by Botox injections. He has not had fluoroscopy. He does wear a mouth guard. French Merlos MD [address] [place] [address], [address], [address], [facility] 10/03/2023 14:52:25 10/27/2023 text/html This patient has TMJ arthralgia which has been successfully treated with Botox. He is here for Botox. French Merlos MD [address], [place], [address], [employer] [facility] [employer] [facility] 10/27/2023 15:53:55 02/09/2024 text/html this patient has done well with Botox for his TMJ arthralgia. French Merlos MD [address], [place], [address], [employer] [facility] 02/09/2024 17:14:51 05/03/2024 text/html this patient is here for Botox treatment for TMJ arthritis French Merlos MD [address], [place], [address], [employer] [facility] 05/03/2024 17:06:51 08/09/2024 text/html patient was here for 25 units of Botox into the masseteric muscle for control of temporomandibular joint arthralgia French Merlos MD [address], [place], [address], [employer] [facility] [employer] [facility] 08/09/2024 16:48:18
--- NOTE | 2024-08-30 06:23 | SUR.OPER ---
Patient brought to GI Lab. Instructions for patient undergoing Capsule Endoscopy reviewed with patient. Consent form signed. Sensor array applied to patient's abdomen and connected to recorded. Patient swallowed capsule with ozs of water infused with Simethicone. Patient instructed they may have clear liquids at 0815 this AM and eat or drink at 1015 this AM. Patient instructed to return to GI Lab at 1500 this afternoon for removal of recording device and to call [phone] or to return to the hospital if any nausea and vomiting or abdominal pain is experienced.
[2024-08-30 06:24] VITALS: BP 117/74; PULSE 73; RESP 18; O2SAT 99
--- NOTE | 2024-08-30 14:41 | SUR.PHASEII ---
Patient returned to the GI Lab at 1440 for recorder box removal. Patient voiced no complaints. States they have understanding of instructions. Patient left ambulatory.
== END 2024-08-30 05:26 | disposition home or self-care (01) ==
PROVIDERS: Referring Provider Nurse Practitioner Family; Visit Provider Internal Medicine Gastroenterology
PROC: 0DJ07ZZ Inspection of Upper Intestinal Tract, Via Natural or Artificial Opening (ICD-10-PCS; CPT 91110; principal; 2024-08-30 07:00)
DX: D50.9 Iron deficiency anemia, unspecified (principal)
CPT/HCPCS: 91110

== ENCOUNTER 2024-10-14 13:50 | Emergency (ER) | payer OTHER, SELFPAY ==
[2024-10-14 13:57] VITALS: BP 101/63; PULSE 75; RESP 20; TEMP 36.4; O2SAT 100
--- NOTE | 2024-10-14 14:07 | ED_ITS ---
HPI - Skin/Abscess/Foreign Bdy General Chief complaint: Skin/Abscess/Foreign Body Stated complaint: bites on legs Time Seen by Provider: 10/14/24 14:07 Source: patient Mode of arrival: ambulatory Limitations: no limitations History of Present Illness HPI narrative: 48 yo M presents with bug bites to going, upper thighs and buttock. Started after being outside for 12 of october. concerned for chiggers. Last time got steroid shot that really helped. All systems reviewed and negative except as noted above. Related Data Home Medications ?Medication ?Instructions ?Recorded ?Confirmed ?Last Taken ?Type esomeprazole magnesium 40 mg 40 mg PO DAILY 06/29/24 08/23/24 Unknown History capsule,delayed release (Nexium) ivabradine 5 mg tablet (Corlanor) mg 10/14/24 Unknown History meloxicam 15 mg tablet mg 10/14/24 Unknown History Allergies Allergy/AdvReac Type Severity Reaction Status Date / Time methylprednisolone AdvReac Agitated Verified 10/14/24 14:04 propranolol AdvReac Dizziness Verified 10/14/24 13:53 pseudoephedrine (From AdvReac Hypertensio Verified 10/14/24 13:53 Sudafed) n Review of Systems Review of Systems: CONSTITUTIONAL: Denies fever, chills, or sweats. EYES: Denies visual changes, redness, or discharge. ENT: Denies rhinorrhea, congestion, sore throat, or otalgia. CARDIOVASCULAR: Denies chest pain, palpitations, or edema. RESPIRATORY: Denies cough or dyspnea. GASTROINTESTINAL: Denies abdominal pain, nausea, vomiting, or diarrhea. GENITOURINARY: Denies dysuria or hematuria. SKIN: Report insect bites with itching MUSCULOSKELETAL: Denies back pain, joint pain, or myalgia. NEUROLOGIC: Denies headache, numbness, or weakness. PSYCHIATRIC: Denies anxiety or depression. All other systems reviewed are negative, except as documented in HPI. [facility]LY [facility], [facility] Past Medical History Medical History (Updated 10/15/24 @ 00:00 by Liat Mckeon) Shrimp allergy Peanut allergy Wheat allergy GERD (gastroesophageal reflux disease) MARVIN (iron deficiency anemia) Social History Social History Smoking status: Unknown if ever smoked Comments At time of signature, agree with nursing past medical, surgical, social and family history. There is no relevant family history pertinent to the presenting complaint. Exam Narrative: GENERAL: This is a well-nourished, well-developed patient, in no apparent distress. HEAD: normocephalic, atraumatic. EYES: PERRL. Sclera clear/white. Vision is grossly intact. EARS: External ears normal NOSE: External nose normal NECK: Neck supple, non-tender without lymphadenopathy, masses or thyromegaly. CARDIOVASCULAR: Regular rate and rhythm without murmurs, gallops, or rubs. RESPIRATORY: Clear to auscultation. Breath sounds equal bilaterally. No wheezes, rales, or rhonchi. SKIN: warm, Dry, intact, with no suspicious lesions or rash, good texture and turgor. erythematous nontender papules to groin, buttock area. approx 10 to 15. no drainage or fluctuance NEURO: awake, alert, and oriented to person, place and time. There were no obvious focal neurologic abnormalities. EXTREMITIES: No joint tenderness, effusion, or edema noted. Course Course Level of Care: Express Care Visit Vital Signs Vital signs: Vital Signs Temperature 36.4 C 10/14/24 13:57 Pulse Rate 75 10/14/24 13:57 Respiratory Rate 20 10/14/24 13:57 Blood Pressure 101/63 10/14/24 13:57 Pulse Oximetry 100 10/14/24 13:57 Oxygen Delivery Room Air 10/14/24 13:57 Temperature 36.4 C 10/14/24 13:57 Pulse Rate 75 10/14/24 13:57 Respiratory Rate 20 10/14/24 13:57 Blood Pressure 101/63 10/14/24 13:57 Pulse Oximetry 100 10/14/24 13:57 Oxygen Delivery Room Air 10/14/24 13:57 Reviewed MDM - Skin/Abscess/Foreign Bdy MDM Narrative Medical decision making narrative: Patient given IM Kenalog for insect bites. Will apply topical steroid as needed. Discharge Plan Discharge Clinical Impression: Insect bites Patient Disposition: Home Condition: Stable Instructions: Insect Bite or Sting (ED) Additional Instructions: You were given an intramuscular injection of steroid today. Take an over the counter antihistamine daily, such as Claritin or Zyrtec. Apply prescribed steroid cream to affected areas sparingly. See your primary care physician as needed. Patient Language: Kazakh Prescriptions: New triamcinolone acetonide 0.1 % cream 1 applic topical BID PRN (Reason: insect bite) Qty: 30 0RF No Action meloxicam 15 mg tablet ivabradine [Corlanor] 5 mg tablet esomeprazole magnesium [Nexium] 40 mg capsule,delayed release(DR/EC) 40 mg PO DAILY Follow-up/Referrals: PONCE, [Primary Care Provider] - Time of Disposition: 14:14
[2024-10-14] MEDS: TRIAMCINOLONE ACET INJ 40 MG/ML VIAL IM (14:20)
== END 2024-10-14 14:38 | disposition home or self-care (01) ==
PROVIDERS: Emergency Provider Nurse Practitioner Family
DX: S30.860A Insect bite (nonvenomous) of lower back and pelvis, initial encounter (principal); S30.861A Insect bite (nonvenomous) of abdominal wall, initial encounter; W57.XXXA Bitten or stung by nonvenomous insect and other nonvenomous arthropods, initial encounter; K21.9 Gastro-esophageal reflux disease without esophagitis
CPT/HCPCS: 96372; 99213; G0463; J3301

== ENCOUNTER 2024-11-22 19:57 | Emergency (ER) | payer OTHER, SELFPAY ==
--- NOTE | ~2024-11-22 | CT_ITS ---
EXAMINATION: CT lumbar spine wo con DATE: 11/23/2024 04:43 INDICATION: Disc bulge. TECHNIQUE: Computed tomography (CT) of the lumbar spine was performed without intravenous contrast. T he dose-length product was 920.14 mGy-cm. Automated exposure control and iterative reconstruction santy hnique were employed. COMPARISON: None FINDINGS: There is disc height loss at L4-5 and L5-S1. There are mild endplate hypertrophic changes a t these levels. There is mild annular disc bulge and and L2-3 through L4-5. There is facet hypertroph y at L5-S1. No significant central canal or neural foraminal stenosis. Vertebral body heights are conchita ntained. No acute fracture, subluxation or dislocation no evidence for spondylolisthesis. IMPRESSION: 1. No acute abnormality of the lumbar spine. No evidence for significant spinal stenosis. Reviewed, dictated and finalized at location A.
--- OUTSIDE RECORDS SUMMARY | 2024-11-22 20:00 | XMS_ITS | Patient Health Record ---
Author Organization [facility] Address [address] [place] [address] Care Team Providers Care Dumb Waiter Operator Name Role Phone Nette Blanco APRN Primary Care Provider U cristiana Hart MD, Matthew Unavailable [phone] Allergies No Known Allergies Reason For Referral No Information Social History Tobacco Use: Social History Observation Description Date Details (start date - stop date) Never Smoker NA - NA Tobacco Use/Smoking Question Answer Notes Tobacco use: nonsmoker Problems Problem Type SNOMED Code ICD Code Onset Dates Problem Status W/U Status Risk Notes Problem Disorder of musculoskeletal system (190626) Weakness of left lower extremity (R29.898) Active confirmed Problem Skin sensation disturbance (98792313) Numbness of left foot (R20.8) Active confirmed Problem Edema (820955611) Edema of left foot (R60.0) Active confirmed Plan Of Treatment No Information Insurance Providers Payer Name Payer Address Payer Phone Subscriber Number Group Number Insured Name Patient Relationship to Insured Coverage Start Date Coverage End Date [facility] CLAIMS [address] [place] [phone] [id number] ANDREW CAMARGO Self - patient is the insured Medical (General) History Medical History History ICD Code _: migraine headaches
--- OUTSIDE RECORDS SUMMARY | 2024-11-22 20:01 | XMS_ITS | Continuity of Care Document ---
Author Organization [facility]. If a dditional information is needed, contact Health Information Management at [phone] [place] [address] Phone Care Team Providers Care Remanufacturing Technician Name Role Phone Unavailable Unavailable Unavailable Unavailable [...] Unavailable Problems Headache Onset:18-Jan-2024 Kemal Griffiths MD Leukocytosis Onset:07-Jul-2022 Digna Mena PA Flushing Onset:07-Jul-2022 Digna Mena PA Localized swelling of right upper limb Onset:06-Jan-2022 Ashley Tim MD Dizziness present Onset:19-Mar-2021 Hilario Irby NP Bradycardia Onset:19-Mar-2021 Hilario Irby NP NOTICE: A previous [...] Solution;25 MILLIGRAM 1XED Quantity:1 Kemal Griffiths MD Start:6-Ipx-0547Dyq:17-Jan-20 Comments:[id number] Administration Instructions:GIVE IV PUSH NO FASTER THAN 25 MG PER MINUTE. ketorolac tromethamine 30 MG/ML Injectable Solution;30 MILLIGRAM 1XED Quantity:1 Kemal Griffiths MD Start:8-Lyy-5636Ood:17-Jan-20 Comments:[id number] Administration Instructions:MAXIMUM DAILY DOSE = 120 MG.MAY GIVE IV UNDILUTED OVER1 MINUTE. 2 ML prochlorperazine 5 MG/ML Injection;10 MILLIGRAM 1XED Quantity:1 Kemal Griffiths MD Start:2-Yon-4969Vmp:17-Jan-20 Comments:[id number] Administration Instructions:DO NOT EXCEED 5 MG/MINUTE. esomeprazole [...] Status:Inactive Comments:2 % Externally TID, 1 application Paxlovid;20 x 150 MG & 10 x 100MG Orally , as directed Quantity:1 SARKIS Griffiths Start:25-Sep-2021 Status:Inactive Comments:20 x 150 MG & 10 x 100MG Orally , as directed Symbicort;160-4.5 MCG/ACT Inhalation Twice a day, 2 puffs Quantity:1 SARKIS Griffiths Start:25-Sep-2021 Comments:160-4.5 MCG/ACT Inhalation Twice a day, 2 puffs Fluticasone-Salmeterol;250- 50 MCG/ACT Inhalation Twice a day, 1 puff SARKIS Griffiths Start:25-Sep-2021 Comments:250-50 MCG/ACT Inhalation Twice a day, 1 puff pregabalin 75 MG Oral Capsule;75 MILLIGRAM PO [...] tablet with water or juice between meals Lyrica CR;82.5 MG Orally Once a day, 2 tablets after the evening meal SARKIS Griffiths Status:Inactive Comments:82.5 MG Orally Once a day, 2 tablets after the evening meal ZyrTEC (cetirizine dihydrochloride 10 MG) Oral Tablet;10 MG Orally Once a day, 1 tablet Quantity:30 SARKIS Griffiths Comments:10 MG Orally Once a day, 1 tablet ivabradine 5 MG Oral Tablet [Corlanor];5 MG Orally Twice a day, 1 tablet with meals Quantity:60 SARKIS Griffiths Comments:5 MG Orally Twice a day, 1 tablet with meals 24 HR Propranolol Hydrochloride 80 MG Extended Release Oral Capsule;80 MG Orally Once a day, 1 capsule Quantity:30 SARKIS Griffiths Status:Inactive Comments:80 MG Orally Once a day, 1 capsule NexIUM 40 MG Delayed Release Oral Capsule;40 MG Orally Once a day, 1 capsule Quantity:30 SARKIS Griffiths Comments:40 MG Orally Once a day, 1 capsule Flomax;0.4 MG Orally Once a day, 1 capsule Quantity:90 SARKIS Griffiths Comments:0.4 MG Orally Once a day, 1 capsule ondansetron 8 MG Disintegrating Oral Tablet;ondansetron 1 tablet by mouth three times a day as needed PRN Harmony Pena benzonatate 200 MG Oral Capsule;benzonatate 1 capsule by mouth three times a day as needed PRN Kong Luong Status:Inactive amoxicillin 875 MG / clavulanate 125 MG Oral Tablet [Augmentin];Augmentin 1 tablet by mouth twice a day Kong Luong Status:Inactive Zithromax Z-Ravi;Zithromax Z-Ravi tablets by mouth daily Kong Luong Status:Prior History Unknown Medication;Unknown Medication Comments:Unknown Medication propranolol hydrochloride 80 MG Oral Tablet [Cardinol];propranolol 80 mg tablet , cetirizine hydrochloride 10 MG Oral Tablet;Zyrtec 10 mg tablet , Kong Luong Social History Smoking Status Never smoked tobacco Recorded: 17-Jan-2024 Never smoked tobacco Recorded: 07-Jul-2022 Never smoked tobacco Recorded: 06-Jan-2022 Never smoked tobacco Recorded: 19-Mar-2021 Results CBC AUTO DIFF/MAN IF INDICATED Ordered On:17-Jan-2024 23:51 BASOPHIL %1% BASOS ABSOLUTE0.110*3/uL(Normal) Range:010*3/uL-0.110*3/uL EOSINOPHIL %2% EOSINOPHILS ABSOLUTE0.110*3/uL(Normal) Range:010*3/uL-0.510*3/uL VHYJUUAZYW21.2%(Low) Range:38.4% -50.8% CSCRJMORYS71.2g/dL(Low) Range:13 .5g/dL-16.5g/dL IMMATURE GRAN #0.010*3/uL(Normal) Range:010*3/uL-0.210*3/uL IMMATURE GRAN %0%(Normal) Range: 0%-1.5% Comments:Immature granulocytes (promyelocytes, myelocytes, andmetamyelocytes) >1.5% indicates that a left shift ispresent. Bands are included in the automated neutrophilcount and not in the IG fraction. LYMPHOCYTE %44% LYMPHOCYTE ABSOLUTE2.410*3/uL(Normal) Range:0.810*3/uL-410*3/uL MEAN CELL HGB22.6pg(Low) Range:2 8.3pg-33.7pg MEAN CELL HGB DVXPODPYEOHF83.9g/dL(Low) Range:31.9g/dL-36.1g/dL MEAN CELL SNBHAQ99.1fL(Low) Rang e:81.8fL-97.9fL MONOS ABSOLUTE0.610*3/uL(Normal) Range:0.310*3/uL-1.210*3/uL MONOCYTE %11% MEAN PLATELET VOLUME9.9fL(Normal) Range:9.4fL-12.4fL NEUTROPHILS ABSOLUTE2.310*3/uL(Normal) Range:2.310*3/uL-7.810*3/uL NEUTROPHIL %41% ZYJFFXJT14984*3/uL(Normal) Range :19319*3/uL-82094*3/uL RED BLOOD CELL4.9510*6/uL(Normal) Range:4.110*6/uL-5.810*6/uL RDW17.5%(High) Range:11.9%-15.1 % WHITE BLOOD CELL5.510*3/uL(Normal) Range:4.110*3/uL-11.110*3/uL LACTIC ACID Ordered On:17-Jan-2024 00:04 LACTIC ACID1.1mmol/L(Normal) Ra nge:0.5mmol/L-2mmol/L Vital Signs 18-Jan-2024 01:22 Pulse75 Comments:75 Respiratory Rate16 Comments:16 O2 SAT98% Comments:98 BP Zovixxrn009vm[Hg] Comments:11 9 BP Tvoqiohvr99so[Hg] Comments:75 18-Jan-2024 00:45 Pulse65 Comments:65 O2 SAT94% Comments:94 18-Jan-2024 Pulse59 Comments:59 O2 SAT96% Comments:96 BP Vuvzdadh057os[Hg] Comments:14 5 BP Hjzzbtwcr73lx[Hg] Comments:75 17-Jan-2024 23:25 Pulse83 Comments:83 O2 SAT99% Comments:99 BP Hqskvpwx475rg[Hg] Comments:14 3 BP Nxrsfuhtc48lv[Hg] Comments:88 17-Jan-2024 23:10 Kpzgikytwzi59.5c Comments:36.5 Pulse81 Comments:81 Respiratory Rate18 Comments:18 O2 SAT99% Comments:99 BP Kroypbmu247fn[Hg] Comments:14 2 BP Wulvchdqs46zy[Hg] Comments:78 17-Jan-2024 23:10 Otokutpsabn92.5c Comments:36.5 Pulse81 Comments:81 Respiratory Rate18 Comments:18 O2 SAT99% Comments:99 BP Gelwvvai275qi[Hg] Comments:14 2 BP Mwolqvjbf09xb[Hg] Comments:78 17-Jan-2024 23:05 Jclemokybin52.5c Comments:36.5 Pulse86 Comments:86 Respiratory Rate16 Comments:16 O2 SAT98% Comments:98 BP Dkdbblfo468kr[Hg] Comments:14 2 BP Lygfdhsti30qq[Hg] Comments:78 Height6.15982550[ft_us] Comments :6 Milwxz73.455kg Comments:95.455 17-Jan-2024 23:05 BMI27.7kg/m2 Comments:27.7 Encounters Emergency Encounter Reason:HYPOTENSION, END-STAGE RENAL DISEASE, DEHYDRATION Encounter Diagnosis:Nausea with vomiting, unspecified,Cervicalgia,Headache, unspecified 17-Jan-2024 23:53Zr9-Ded-7427 01:06 Edgard Tim DO (Attending) [facility] Discharge Disposition:Discharged to home or self care (routine discharge) Kemal Griffiths MD-18-Jan-2024 [facility])EMERGENCY PROVIDER REPORTREPORT#:[id number] REPORT STATUS: SignedDATE:01/18/24 TIME: 0105PATIENT: ANDREW CAMARGO UNIT #: [id number]#: [id number] ROOM/BED:AGE: 48 SEX: M PCP PHYS: Gissel Hunter MDSERVICE AUTHOR: KemalMita L MDREP SRV REP SRV TM: 0105* ALL [...] 01/16 2305 O2 Delivery Room air 01/16 230 Temp 36.5 01/16 230 Pulse 86 01/16 2305 Resp 16 01/16 2305Last Documented: Result Date Time Pulse Ox 94 01/17 0045 Pulse 65 01/17 0045 B/P 145/75 01/17 0000 B/P Mean 104 01/17 0000 O2 Delivery Room air 01/16 2310 Temp 36.5 01/16 231 Resp 18 01/16 231Review of Vital Signs [...] Abnormal Mood/Affect Anxious (Hyperventilating).Interpretation DiagnosticsLab Results InterpretationResultsLaboratory Tests01/17/243:[Embedded Image Not Available]Laboratory Tests: 01/16 2333 Chemistry [...] (%) 41 Lymph % (Auto) (%) 44 Pinal % (Auto) (%) 11 Eos % (Auto) [...] 01/16 2339 DC 01/16 Tromethamine IV 01/16 234 2347Gastrointestinal Drugs Sig/Lacey Start time Last Medication Dose Route Stop Time Status Admin Prochlorperazine 10 MG 1XED ONE 01/16 2338 DC 01/16 Edisylate IV 01/16 2339 234Differential Diagnosis)( Differential Diagnosis Carotid artery dissection, Cerebellar ischemia, Closedhead injury, Cerebrovascular accident, Fever-induced, Headache, Headache,hypertensive, Headache, migraine, Headache, post-traumatic, Hemorrhage,cerebellar, Hemorrhage, epidural, Hemorrhage, intracerebral, Hemorrhage,subarachnoid, Hemorrhage, subdural, Pseudotumor cerebri, Sinusitis, Temporalarteritis, TMJ syndrome, Vertebrobas insufficiency, Arterial dissectionPatient Discharge DepartureVital Signs/ConditionVital SignsFirst Documented: Result Date Time Pulse Ox 98 01/16 2305 B/P 142/78 01/165 B/P Mean 99 01/16 2305 O2 Delivery [...] ImprovedClinical ImpressionClinical ImpressionPrimary Impression: HeadacheTime of Impression 010Disposition DecisionDischarge )( Discharged to Home Yes )( Time 010 )( Date 01/18/24Discharge/Care PlanCounseled Regarding Diagnosis, Lab [...] for re-evaluation.ReferralsProvider Referral: Gissel Hunter MD Address: [address] [facility] [address] [place], [place] [address]Kompdwzbq FormsAdditional Information/NoticesMy Health OneSuicide Risk PreventionQualifiers Headache Headache type: unspecified Headache chronicity pattern: acute headacheIntractability: not intractable Qualified Code: R51.9 - Headache, unspecified at 0121RPT #: [id number] OF REPORT pre-admission 15-Sep-2023 14:20 Mai Tim MD (Attending) [facility] 01-Sep-2023 15:35 Mai Tim MD (Attending) [facility] 09-Sep-2022 14:40 Mai Tim MD (Attending) [facility] 07-Jul-2022 20:06 Kalyn Tim MD (Attending) [facility] 01-Apr-2022 19:32 [facility] pre-admission 16-Mar-2022 13:40 Mai Tim MD (Attending) [facility] 11-Mar-2022 16:01 Mai Tim MD (Attending) [facility] 16-Dec-2021 20:22 UNKNOWN (Attending) [facility] 13-Aug-2021 15:05 Mai Tim MD (Attending) [facility] P 13-Aug-2021 13:40 Mai Tim (Attending) [facility] pre-admission 03-Aug-2021 14:00 Mai Tim MD (Attending) [facility] P 03-Aug-2021 14:00 Mai Tim (Attending) [facility] 26-Jan-2021 16:37 Mai Tim MD (Attending) [facility] pre-admission 25-Dec-2020 13:15 Mai Tim MD (Attending) [facility] P 25-Dec-2020 13:15 Mai Tim (Attending) [facility] 26-May-2020 16:17 UNKNOWN (Attending) [facility] pre-admission 01-Nov-2019 15:00 Mai Tim MD (Attending) [facility] 11-Oct-2019 17:57 Mai Tim MD (Attending) [facility] 08-Jun-2019 19:46 UNKNOWN (Attending) [facility] 06-Jun-2019 HARMONY PENA (Attending) [facility] 16-Apr-2019 HARMONY PENA (Attending) [facility] pre-admission 21-Mar-2019 16:00 [facility] 21-Feb-2019 KONG LUONG (Attending) [facility] 08-Jan-2019 KONG LUONG (Attending) [facility] Plan of Treatment Push clear liquids. At [...] Gissel Hunter MD Work Phone: [address] [address] Gissel Hunter MD Work Phone: [address] [address] Jodee Parrish DO Work Phone: [address] [address] Cardiology Work Phone: [address] [facility] [address] [facility] Work Phone : [phone] [facility] [phone] Future Procedures Future procedure information is unavailable [...]
--- OUTSIDE RECORDS SUMMARY | 2024-11-22 20:01 | XMS_ITS | Continuity of Care Document ---
Author Name [facility] Organization [facility] Care Team Providers Care Service Delivery Supervisor Name Role Phone [facility] Unavailable Unavailable Problems Combined list of problems from 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 It does not include entries that were removed or entered in error. Problem Status Onset Date Problem Type Date of Resolution Comments Source VIRAL SYNDROME Inactive 009 Condition [facility] CONTACT DERMATITIS Inactive 009 Condition [facility] AF-Atrial Fibrillation (SCT 25566653) Active Condition Jan 26, 2019 Entered By: AD SHI Comment: [facility] Allergic rhinitis due to grass pollen (SNOMED CT 87472330) Active Condition [facility] Anemia (SCT 759063477) Active Condition Aug 07, 2019 Entered By: AD SHI Comment: Iron deficiency of UE per [facility] Oncology in 2017 which mentioned a 2009 colonoscopy and that he donates a lot of blood. [facility] Chronic low back pain Active Condition JENNIFER RODRIGUEZ [facility] Chronic pain syndrome Active Condition [facility] 15 Chronic post-traumatic stress disorder (SNOMED CT 917277250) Active Condition [facility] Colitis Active Condition Dec 20 Entered By: AD SHI Comment: hospitalized with unknown type when 32 yo [facility] Dermatitis * (ICD-9-CM 692.9) Active Condition [facility] Dry eyes Active Condition [facility] 15 Exposure to potentially hazardous substance Active Condition [facility] Family history of colorectal cancer Active Condition Dec 20 Entered By: AD SHI Comment: in another [place] with mets to lungs. [facility] Family history of leukemia Active Condition Dec 20, 2018 Entered By: AD SHI Comment: in [place] [facility] 15 Family history of malignant neoplasm of ovary Active Condition Dec 20, 2018 Entered By: AD SHI Comment: [place] [facility] FH: Cardiovascular disease Active Condition Dec 20, 2018 Entered By: AD SHI Comment: PGF had CABG in his 60s [facility] 15 Gastro-esophageal reflux disease with esophagitis (SNOMED CT 082391236) Active Condition JENNIFER RODRIGUEZ [facility] GERD - Gastro-Esophageal Reflux Disease (SCT 310395706) Active Condition Aug 07, 2019 Entered By: AD SHI Comment: Negative EGD with dilation on 11/20/[address] Dr Cristiano José of [place], [place].Aug 07, 2019 Entered By: AD SHI Comment: Hx of dilation in 2013.Mar 12, 2020 Entered By: AD SHI Comment: Negative EGD on 11/19/2019. [facility] H/O: surgery Active Condition Dec [...] L3-L4, L4-L5, L5-S1 facet nerve radiofrequency ablation [facility] 15 History of colonoscopy Active Condition Mar 12, 2020 Entered By: AD SHI Comment: Negative on 11/19/2019 and repeat it in 10 years. [facility] 15 Immunization status Active Condition Dec 20, 2018 Entered By: AD SHI Comment: Chickenpox as a child [facility] 15 Inappropriate sinus tachycardia Active Condition [facility] 15 Internal hemorrhoids without mention of complication (ICD-9-CM 455.0) Active Condition [facility] Knee pain Active Condition JENNIFER Maldonado [facility] Low back pain Active Condition -[facility] [facility] Lumbar spondylosis Active Condition [facility] 15 Migraine with aura Active Condition [facility] Neuropathy Active Condition Feb 20 019 Entered By: AD SHI Comment: Idiopathic per Luis Ruiz DPM on 06/30/2018 & Rx with Lyrica 75 mg po BID. (No lab). [facility] Pain of left ankle joint (SNOMED CT 68030511872167263) Active Condition [facility] Sleep related bruxism Active Condition [facility] Supraventricular tachycardia Active Condition JENNIFER RODRIGUEZ [facility] Arrhythmia * (ICD-9-CM 427.9) Inactive Condition 12/08/2017 [facility] Chronic Low Back Pain (ICD-9-CM 724.2) Inactive Condition 12/08/2017 [facility] Health Maintenance (ICD-9-CM V65.9) Inactive Condition 12/08/2017 [facility] Insect bite, nonvenomous, of other, multiple, and unspecified sites, without men Inactive Condition 12/08/2017 [facility] Other Specified Counseling (ICD-9-CM V65.49) Inactive Condition 12/08/2017 [place] [facility] Rectal Bleeding (ICD-9-CM 569.3) Inactive Condition 12/08/2017 [facility] Toxic gastroenteritis and colitis (ICD-9-CM 558.2) Inactive Condition 12/08/2017 [facility] Anal fissure Active Condition -375 th [facility] MARVIN - Iron deficiency anemia Active Condition 0055C-3 [facility] Radiculopathy, lumbar region Active Condition -[facility] Major depressive disorder, single episode, mild Active Condition 5C-[facility] Pain in left hip Active Condition -[facility]th [facility] Shoulder pain Active Condition 0089C-AM [facility] Sinus tachycardia Active Condition 54 C-[facility]th [facility] Spinal stenosis, lumbar region without neurogenic claudication Active Condition -[facility] Posterior vitreous detachment Active Condition Unknown Organization SUPERFICIAL INJURY - NONVENOMOUS INSECT BITE OF FOREARM Active Condition [facility] GASTROENTERITIS Active Condition Like ly viral. Normal labs this AM. Phenergan for nausea. Motrin for pain. [facility] VOLUME DEPLETION Inactive Condition Do[facility] diarrhea Active Condition [facility] Vesicle (___mm) Active Condition [facility] COMPRESSION ARTHRALGIA Inactive Condition mechanical low back pain DoD visit for: screening exam pulmonary tuberculosis Active Condition [facility] Vaccines Prophylactic Need Against Td Active Condition DoD visit: ears/hearing exam for hearing conservation, treatment Active Condition [facility] Administrative Evaluation Services Active Condition No labs needed DoD visit for: administrative purpose Active Condition DoD visit for: postsurgical exam Inactive Condition [facility] REFRACTIVE ERROR Active Condition DoD visit for: occupational health / fitness exam Active Condition DoD Patient Education - Injury Prevention Inactive Condition [facility] REFRACTIVE ERROR - MYOPIA Active Condition Order foc,s-9 and pmi as needed. ref for refracive surgery pkg filled out. DoD visit for: preoperative exam Inactive Condition DoD visit for: services physical Inactive Condition DoD FOOT SPRAIN Inactive Condition FOOT SPRAIN DoD Patient Education - Self-Examination Active Condition DoD PATELLOFEMORAL SYNDROME LEFT Active Condition DoD Diagnosis: ICD-10-CM M54.51 Vertebrogenic low back pain Active Diagnosis [facility] Medications Combined list of outpatient medications from 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Medications provided include 1) outpatient medications from the last 15 months, and 2) patient-reported medications. Medication Details Route Status Patient Instructions Prescription Expires Prescription Number Last Dispense Date Ordering Provider Order Date Order Qty Source acetaminoph en 500 mg oral tablet 1 tab(s), Oral, BID, X 10 days, # 40 tab(s), 0 total refill(s ), Acute, 10/28/23 8:46:00 AM CDT, Pharmacy : [facility] Oral (given by mouth) Complet ed 10/28/2023 4 2023 40.0 [facility] Afrin 0.05% nasal spray 2 spray(s) , Nostril- Both, BID, Do not use for more than 3 days., X 3 days, # 15 mL, 0 total refill(s ), Acute, Pharmacy : [facility] Nostri l-Both (into the nose) Complet ed 06/25/2024 5 2024 15.0 0055C[facility] amoxicillin -clav 875 mg-125 mg tablet See Instruct ions, # 14 EA, 0 total refill(s ), Hard Stop Complet ed 07/18/2023 4 2023 14.0 Ambulat ory Pharmac y amoxicillin -clavulanat e 875 mg-125 mg oral tablet 1 tab(s), Oral, every 12 hr, X 7 days, # 14 tab(s), 0 total refill(s ), Acute, 08/30/24 11:37:00 AM CDT, Pharmacy : [facility] , Respirat ory, sinusiti s Oral (given by mouth) Complet ed 08/30/2024 5 2024 14.0 0055C-3 75th [facility] amoxicillin -clavulanat e 875 mg-125 mg oral tablet 14 EA, 0 Refill(s ), TAKE 1 TABLET BY MOUTH EVERY 12 HOURS FOR 1 WEEK, 0 total refill(s ), Soft Stop Complet ed 07/31/20242024 0055C-3 [facility] ASCORBIC ACID 500MG TAB TAKE ONE TABLET BY MOUTH EVERY DAY ORAL ACTIVE BENIGNO DIAZ [address] [facility] baclofen 10 mg oral tablet 1 tab(s), Oral, Daily, # 90 tab(s), 0 total refill(s ), Hard Stop, 11/02/24 2:17:11 PM CDT, Pharmacy : [facility] Oral (given by mouth) Complet ed 11/02/2024 4 2024 90.0 0055C-3 [facility] baclofen 10 mg oral tablet 1 tab(s), Oral, Daily, # 90 tab(s), 1 total refill(s ), [facility], Pharmacy : [facility] Oral (given by mouth) Ordered 5 2024 90.0 0055C-3 [facility] CARISOPRODO L 350MG TAB TAKE ONE TABLET BY MOUTH EVERY DAY NEEDED ORAL ACTIVE LLOYD DENNIS 2014 JENNIFER RODRIGUEZ [facility] cefdinir 300 mg capsule See Instruct ions, # 20 EA, 0 total refill(s ), Hard Stop Complet ed 03/23/2024 4 2023 20.0 Ambulat ory Pharmac y CETIRIZINE HCL 10MG TAB TAKE ONE TABLET BY MOUTH EVERY DAY ORAL ACTIVE MARCELINOCARIDAD Griffiths 2012 [facility] Corlanor Oral, 0 total refill(s ), Maintena nce Oral (given by mouth) Discont inued 11/04/20232023 0055C-3 [facility] SRINATH [facility] Corlanor 5 mg oral tablet 5 mg, 0 Refill(s ), 1 tablet (5 mg total) daily, 0 total refill(s ), Soft Stop Discont inued 11/04/20232023 0055C-3 [facility] SRINATH [facility] Corlanor 5 mg oral tablet 5 mg, Oral, Daily, 0 Refill(s ), 1 tablet (5 mg total) daily, # 90 tab(s), 3 total refill(s ), Maintena nce, Pharmacy : [facility] Oral (given by mouth) Ordered 5 2023 90.0 0055C-3 75[facility] SRINATH [facility]ers diclofenac 1% topical gel 1 g, Topical, QID, # 100 g, 0 total refill(s ), Maintena cae, Pharmacy : [facility] Topica l (on the skin) Ordered 10/31/2023 4 2023 100.0 0055C-3 [facility] SRINATH [facility]ers esomeprazol e 40 mg oral delayed release capsule 40 mg, Oral, 0 Refill(s ), 0 total refill(s ), Soft Stop Oral (given by mouth) Discont inued 11/04/20232023 0055C[facility]3 [facility] esomeprazol e 40 mg oral delayed release capsule 1 cap(s), Oral, Daily, # 90 cap(s), 3 total refill(s ), Hard Stop, Pharmacy : [facility] Oral (given by mouth) Complet ed 11/13/2024 5 2024 90.0 0055C-3 [facility] esomeprazol e 40 mg oral delayed release capsule 1 cap(s), Oral, Daily, # 90 cap(s), 3 total refill(s ), [facility], Pharmacy : [facility] Oral (given by mouth) Ordered 5 2024 90.0 0055C[facility]3 [facility] ESOMEPRAZOL E MAGNESIUM 40MG CAP,EC TAKE ONE CAPSULE BY MOUTH AT BEDTIME TO LOWER STOMACH ACID. TAKE AT LEAST 1 HOUR BEFORE FOOD (N/F APPROVED ) ORAL 03/08/2024 [id number] CINTIA CALLAWAY [facility] E 2022 90 [facility] ESOMEPRAZOL E MAGNESIUM 40MG CAP,EC TAKE 1 CAPSULE BY MOUTH EVERY DAY ORAL ACTIVE CARIDAD BENSON [address] [facility] ferrous fumarate 324 mg (106 mg elemental iron) oral tablet 1 tab(s), Oral, every other day, # 90 tab(s), 0 total refill(s ), [facility], Pharmacy : [facility] Oral (given by mouth) Ordered 2023 90.0 0055C-3 [facility] fluconazole 200 mg tablet = 1 tab(s), Oral, Daily, # 7 EA, 0 total refill(s ), Hard Stop Oral (given by mouth) Discont inued 03/22/2024 4 2023 7.0 Ambulat ory Pharmac y gabapentin 300 mg capsule See Instruct ions, # 90 EA, 0 total refill(s ), Hard Stop Complet ed 10/31/2024 4 2024 90.0 Ambulat ory Pharmac y guaiFENesin 600 mg oral tablet, extended release 1-2 tab(s), Oral, every 12 hr, X 7 days, # 40 tab(s), 0 total refill(s ), Acute, 07/06/23 7:49:00 AM CDT, Pharmacy : [facility] Oral (given by mouth) Complet ed 07/06/2023 4 2023 40.0 0055C-3 [facility] guaiFENesin 600 mg oral tablet, extended release 1 tab(s), Oral, every 12 hr, # 20 tab(s), 0 total refill(s ), Acute, 09/06/24 12:00:00 AM CDT, Pharmacy : [facility] Oral (given by mouth) Complet ed 09/06/2024 5 2024 20.0 0055C-3 [facility] SR[facility]ATH [facility] IBUPROFEN 800MG TAB TAKE ONE TABLET BY MOUTH EVERY DAY NEEDED ORAL ACTIVE CARIDAD BENSON L [address] [facility] Lidoderm 5% topical patch 1 patch(es ), Topical, Daily, Leave on for up to 12 hours within a 24 hour period (12 hours on, 12 hours off), # 30 patch(es ), 3 total refill(s ), Maintena samariae, Pharmacy : [facility] Topica l (on the skin) Ordered 4 2023 30.0 0055C-3 [facility] SR[facility] meloxicam 15 mg tablet See Instruct ions, # 30 EA, 1 total refill(s ), Hard Stop Complet ed 10/31/2024 4 2024 30.0 Ambulat ory Pharmac y meloxicam 15 mg tablet See Instruct ions, # 30 EA, 2 total refill(s ), Soft Stop Ordered 5 2024 30.0 Ambulat ory Pharmac y metroNIDAZO LE 250 mg tablet See Instruct ions, # 30 EA, 0 total refill(s ), Hard Stop Complet ed 03/23/2024 4 2023 30.0 Ambulat ory Pharmac y Mucinex 600 mg oral tablet, extended release 1 tab(s), Oral, every 12 hr, # 20 tab(s), 0 total refill(s ), Maintena samariae, Pharmacy : [facility] Oral (given by mouth) Discont inued 02/23/2024 4 2023 20.0 0055C-3 75[facility] SRINATH [facility] NexIUM Oral, Daily, 0 total refill(s ), Maintena samariae Oral (given by mouth) Discont inued 11/04/20232023 0055C-3 75[facility] SRINATH [facility] NORTRIPTYLI NE HCL 25MG CAP TAKE 2 CAPSULES BY MOUTH EVERY DAY ORAL ACTIVE MARCLEINOEAR L [address] [facility] nystatin 407041 units/mL oral suspension See Instruct ions, Oral, # 168 mL, 0 total refill(s ), Hard Stop Oral (given by mouth) Complet ed 03/30/2024 4 2023 168.0 Ambulat ory Pharmac y OMEGA-3-ACI D ETHYL ESTERS 1000MG CAP,ORAL TAKE 2 CAPSULES BY MOUTH EVERY DAY ORAL ACTIVE BENIGNO DIAZ [address] [facility] Pepcid 20 mg oral tablet 1 tab(s), Oral, BID, for gastriti s, # 60 tab(s), 0 total refill(s ), Maintena nce, Pharmacy : [facility] Oral (given by mouth) Ordered 4 2023 60.0 0055C-3 [facility] SR[facility] Preparation H Rapid Relief With Lidocaine topical cream 1 appl(s), Topical, BID, # 28 g, 1 total refill(s ), Acute, Pharmacy : [facility] Topica l (on the skin) Complet ed 01/19/20242023 28.0 0055C-3 75[facility] SR[facility]ATH [facility] ProAir HFA 90 mcg/inh inhalation aerosol 2 puff(s), Inhale, every 4 hr, PRN wheezing , X 7 days, # 8.5 g, 0 total refill(s ), Acute, 07/25/23 8:18:00 AM CDT, Pharmacy : [facility] Inhala tion (breat he in) Complet ed 07/25/2023 4 2023 8.5 0055C-3 75[facility] SRINATH [facility] PROPRANOLOL HCL 160MG CAP,SA TAKE 1 CAPSULE BY MOUTH EVERY DAY ORAL ACTIVE CARIDAD BENSON [address] [facility] Restasis 0.05% ophthalmic emulsion 1 drop(s), Eye-Both , every 12 hr, # 60 EA, 11 total refill(s ), Maintena nce, Pharmacy : [facility] Both eyes Ordered 02/07/2025 5 2023 60.0 0055C-3 [facility] SR[facility]ATH [facility] Saline Mist 0.65% nasal spray 1 spray(s) , Nostril- Both, 8 times per day, PRN dry nasal passages , # 44 mL, 0 total refill(s ), Maintena nce, Pharmacy : [facility] Nostri l-Both (into the nose) Ordered 5 2024 44.0 0055C-3 75[facility] SR[facility] Saline Mist 0.65% nasal spray 1 spray(s) , Nostril- Both, 8 times per day, PRN dry nasal passages , # 44 mL, 0 total refill(s ), Hard Stop, Pharmacy : [facility] Nostri l-Both (into the nose) Complet ed 08/14/2024 4 2024 44.0 0055C-3 75th SRINATH [facility]ers sucralfate 1 g tablet See Instruct ions, # 120 EA, 0 total refill(s ), Hard Stop Complet ed 03/17/2024 4 2023 120.0 Ambulat ory Pharmac y tiZANidine 4 mg oral tablet 4 mg, Oral, 0 Refill(s ), Take 1 tablet (4 mg total) by mouth every 6 (six) hours as needed for muscle spasms, 0 total refill(s ), Soft Stop Oral (given by mouth) Ordered 2024 0055C-3 75th SR[facility] Toradol 15 mg/mL injectable solution 15 mg, IntraMus cular, every 6 hr, # 1 mL, 0 total refill(s ), Acute, 06/01/24 2:03:10 PM NURSE WOUND CARE, Pharmacy : [facility] IntraM uscula r (in a muscle ) Discont inued 06/01/20242024 1.0 0055C-3 [facility] SR[facility] Toradol 30 mg/mL injectable solution 30 mg, IntraMus cular, Once, # 1 mL, 0 total refill(s ), Physicia n Stop, 06/01/24 2:05:50 PM NURSE WOUND CARE, Pharmacy : [facility] IntraM uscula r (in a muscle ) Complet ed 06/01/20242024 1.0 0055C-3 75th SRINATH [facility] TRAMADOL HCL 50MG TAB TAKE ONE TABLET BY MOUTH EVERY DAY NEEDED ORAL ACTIVE LLOYD DENNIS 2014 JENNIFER RODRIGUEZ [facility] Tylenol 325 mg oral tablet 1 tab(s), Oral, every 4 hr, PRN pain or fever, X 10 days, # 50 tab(s), 0 total refill(s ), Acute, 07/09/23 7:49:00 AM CDT, Pharmacy : [facility] Oral (given by mouth) Complet ed 07/09/2023 4 2023 50.0 0055C-3 75[facility] Vitamin B Complex oral capsule Oral, Daily, 0 total refill(s ), Maintena nce Oral (given by mouth) Ordered 2023 0055C-3 75th [facility] ZyrTEC 10 mg oral tablet 1 tab(s), Oral, Daily, PRN allergy symptoms , # 90 tab(s), 3 total refill(s ), Maintena nce, Pharmacy : [facility] Oral (given by mouth) Ordered 4 2023 90.0 0055C-3 75[facility] Allergies, Adverse Reactions, Alerts Combined list of allergies from 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 It does not include entries that were removed or entered in error. Substance Category Reaction Severity Reaction type Status Date Reported Comments Source Other Living Organism Allergy to substance Other Reaction Unknown Active Tree nuts, peanuts, soy, sesame, shrimp, egg white, wheat 0089C-[facility] Jere menon PROPRANOLOL Propensity to adverse reactions to drug (finding) Lethargy, Fatigue active 1 [facility] 15 propranolol Drug allergy Swelling (finding) Moderate Active 0055C-[facility] PROPRANOLOL HYDROCHLORIDE Drug allergy (disorder) active 4 [facility] [employer] ([facility]) pseudoephedri ne Drug allergy HIGH BP Moderate Active 2 0055C-375 th [facility] k[facility]ash SEASONAL ALLERGIES Propensity to adverse reaction (finding) Sneezing, Allergic rhinitis, Watery eye active 3 [facility] Immunizations Combined list of available immunizations from the 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 Comments Source INFLUENZA, UNSPECIFIED FORMULATION 2022 88 complet ed HISTORICA L INFORMATI ON - FROM PATIENT'S RECALL, [facility] OFFIC influenza, injectable, quadrivalent- pf 2021 [id number] 150 sanofi pasteur complet ed influenza , injectabl e, quadrival ent-pf 02/13/22 Given Ambulat ory Pharmac y INFLUENZA, INJECTABLE, QUADRIVALENT, PRESERVATIVE FREE 2020 150 complet ed [facility] COVID Vaccine Pfizer 2020 [id number] PFIZER complet ed COVID Vaccine Pfizer 12/05/20 Given Ambulat ory Pharmac y COVID-19 (PFIZER), MRNA, LNP-S, PF, 30 MCG/0.3 ML DOSE 2 2020 208 complet ed PFR; [id number]; 1 [facility] COVID-19 (PFIZER), MRNA, LNP-S, PF, 30 MCG/0.3 ML DOSE 1 2020 208 complet ed PFR; [id number]; 1 [facility] hepatitis A adult vaccine 2020 [id number] 52 sanofi pasteur complet ed hepatitis A adult vaccine 05/13/20 Given Ambulat ory Pharmac y influenza, injectable, quadrivalent 2018 [id number] 158 Se[employer] complet ed influenza , injectabl e, quadrival ent 02/11/19 Given Ambulat ory Pharmac y tetanus-dipht h toxoids (Td) adult/adol 2017 [id number] 09 sanofi pasteur complet ed tetanus-d iphth toxoids (Td) adult/ado l 03/18/18 Given Ambulat ory Pharmac y influenza, injectable, quadrivalent- pf 2017 [id number] 150 [employer] complet ed influenza , injectabl e, quadrival ent-pf 01/27/18 Given Ambulat ory Pharmac y INFLUENZA, SEASONAL, INJECTABLE 2017 141 complet ed [facility] typhoid Vi capsular polysaccharid e vac 2016 [id number] 101 sanofi pasteur complet ed typhoid Vi capsular polysacch aride vac 03/19/17 Given Ambulat ory Pharmac y typhoid Vi capsular polysaccharid e vac 2016 [id number] 101 sanofi pasteur complet ed typhoid Vi capsular polysacch aride vac 03/19/17 Given Ambulat ory Pharmac y typhoid Vi capsular polysaccharid e vaccine 1 2016 [id number] 101 Sanofi Pasteur ([facility]) complet ed typhoid Vi capsular polysacch aride vaccine DoD INFLUENZA, SEASONAL, INJECTABLE 2016 141 complet ed [facility] Influenza, inj, MDCK, quadrivalent- pf 2016 [id number] 171 [employer] complet ed Influenza , inj, MDCK, quadrival ent-pf 01/29/17 Given Ambulat ory Pharmac y Influenza, inj, MDCK, quadrivalent- pf 2016 [id number] 171 [employer] complet ed Influenza , inj, MDCK, quadrival ent-pf 01/29/17 Given Ambulat ory Pharmac y Influenza, injectable, Madin Jess Canine Kidney, preservative free, quadrivalent 1 2016 [id number] 171 Se[employer] (SEQ) comple t ed Influenza , injectabl e, Madin [place] Canine Kidney, preservat myke free, quadrival ent DoD influenza, seasonal, injectable-pf 2015 [id number] 140 [employer] complet ed influenza , seasonal, injectabl e-pf 03/13/16 Given Ambulat ory Pharmac y influenza, seasonal, injectable-pf 2015 [id number] 140 [employer] complet ed influenza , seasonal, injectabl e-pf 03/13/16 Given Ambulat ory Pharmac y Influenza, seasonal, injectable, preservative free 1 2015 [id number] 140 [employer] (SEQ) comple t ed Influenza , seasonal, injectabl e, preservat myke free DoD influenza, seasonal, injectable 2015 141 complet ed influenza , seasonal, injectabl e 02/02/16 Given Ambulat ory Pharmac y measles/mumps /rubella virus vaccine 2014 [id number] 03 [employer] complet ed measles/m umps/rube lla virus vaccine 03/23/15 Given Ambulat ory Pharmac y measles/mumps /rubella virus vaccine 2014 [id number] 03 [employer] complet ed measles/m umps/rube lla virus vaccine 03/23/15 Given Ambulat ory Pharmac y measles, mumps and rubella virus vaccine 2 2014 [id number] 03 Merck (MSD) complet ed measles, mumps and rubella virus vaccine DoD influenza, seasonal, injectable-pf 2014 [id number] 140 CSL Behring complet ed influenza , seasonal, injectabl e-pf 01/25/15 Given Ambulat ory Pharmac y influenza, seasonal, injectable-pf 2014 [id number] 140 CSL Behring complet ed influenza , seasonal, injectabl e-pf 01/25/15 Given Ambulat ory Pharmac y Influenza, seasonal, injectable, preservative free 1 2014 [id number] 140 CS [employer] (CSL) complet ed Influenza , seasonal, injectabl e, preservat myke free DoD varicella virus vaccine 2013 UNK 21 Unknown complet ed varicella virus vaccine 04/02/14 Given Ambulat ory Pharmac y varicella virus vaccine 2013 21 Unknown complet ed varicella virus vaccine 04/02/14 Given Ambulat ory Pharmac y varicella virus vaccine 1 2013 UNK 21 Unknown (UNK) comple t ed varicella virus vaccine DoD INFLUENZA, SEASONAL, INJECTABLE, PRESERVATIVE FREE [address] [facility] Influenza, injectable, MDCK-pf 2013 [id number] 153 [employer] complet ed Influenza , injectabl e, MDCK-pf 01/06/14 Given Ambulat ory Pharmac y Influenza, injectable, MDCK-pf 2013 [id number] 153 [employer] complet ed Influenza , injectabl e, MDCK-pf 01/06/14 Given Ambulat ory Pharmac y Influenza, injectable, Madin Jess Canine Kidney, preservative free 1 2013 [id number] 153 [employer] Rashawn. (NOV) complet ed Influenza , injectabl e, Madin Jess Canine Kidney, preservat myke free DoD influenza, injectable, quadrivalent- pf 2013 [id number] 150 [employer] complet ed influenza , injectabl e, quadrival ent-pf 04/21/13 Given Ambulat ory Pharmac y influenza, injectable, quadrivalent- pf 2013 [id number] 150 [employer] complet ed influenza , injectabl e, quadrival ent-pf 04/21/13 Given Ambulat ory Pharmac y Influenza, injectable, quadrivalent, preservative free 1 2013 [id number] 150 [employer] Rashawn. (NOV) complet ed Influenza , injectabl e, quadrival ent, preservat myke free DoD INFLUENZA, SEASONAL, INJECTABLE, PRESERVATIVE FREE [address] [facility] influenza, seasonal, injectable-pf 2011 [id number] 140 [employer] complet ed influenza , seasonal, injectabl e-pf 12/26/11 Given Ambulat ory Pharmac y influenza, seasonal, injectable-pf 2011 [id number] 140 [employer] complet ed influenza , seasonal, injectabl e-pf 12/26/11 Given Ambulat ory Pharmac y Influenza, seasonal, injectable, preservative free 1 2011 [id number] 140 [facility] [employer] ([facility]) complet ed Influenza , seasonal, injectabl e, preservat myke free DoD influenza, seasonal, injectable-pf 2010 [id number] 140 [employer] complet ed influenza , seasonal, injectabl e-pf 01/24/11 Given Ambulat ory Pharmac y influenza, seasonal, injectable-pf 2010 [id number] 140 [employer] complet ed influenza , seasonal, injectabl e-pf 01/24/11 Given Ambulat ory Pharmac y Influenza, seasonal, injectable, preservative free 1 2010 [id number] 140 [facility] [employer] ([facility]) complet ed Influenza , seasonal, injectabl e, preservat myke free DoD influenza, seasonal, injectable-pf 2010 140 sanofi pasteur complet ed influenza , seasonal, injectabl e-pf 01/06/11 Given Ambulat ory Pharmac y Influenza, seasonal, injectable, preservative free 0 2010 140 Sanofi Pasteur ([facility]) complet ed Influenza , seasonal, injectabl e, preservat myke free DoD influenza, seasonal, injectable 2009 141 complet ed influenza , seasonal, injectabl e 12/25/09 Given Ambulat ory Pharmac y influenza virus vaccine,split 2007 [id number] 15 [employer] complet ed influenza virus vaccine,s plit 01/27/08 Given Ambulat ory Pharmac y influenza virus vaccine,split 2007 [id number] 15 [employer] complet ed influenza virus vaccine,s plit 01/27/08 Given Ambulat ory Pharmac y influenza virus vaccine, split virus (incl. purified surface antigen)-reti red CODE 1 2007 [id number] 15 [employer] (AVB) complet ed influenza virus vaccine, split virus (incl. purified surface antigen)- retired CODE DoD tetanus, diphtheria, acellular pertu is 2007 [id number] 115 [employer] complet ed tetanus, diphtheri a, acellular pertussis 09/20/07 Given Ambulat ory Pharmac y tuberculin purified protein derivative 2007 [id number] 96 [facility] [employer] complet ed tuberculi n purified protein derivativ e 09/20/07 Given Ambulat ory Pharmac y tetanus, diphtheria, acellular pertu is 2007 [id number] 115 [employer] complet ed tetanus, diphtheri a, acellular pertussis 09/20/07 Given Ambulat ory Pharmac y TDAP 2007 115 complet ed [facility], VISN 15 tetanus toxoid, reduced diphtheria toxoid, and acellular pertu is vaccine, adsorbed 1 2007 [id number] 115 [facility] (SKB) complet ed tetanus toxoid, reduced diphtheri a toxoid, and acellular pertussis vaccine, adsorbed DoD influenza virus vaccine,split 2006 [id number] 15 [employer] complet ed influenza virus vaccine,s plit 02/12/07 Given Ambulat ory Pharmac y influenza virus vaccine,split 2006 [id number] 15 [employer] complet ed influenza virus vaccine,s plit 02/12/07 Given Ambulat ory Pharmac y influenza virus vaccine, split virus (incl. purified surface antigen)-reti red CODE 1 2006 [id number] 15 [employer] (AVB) complet ed influenza virus vaccine, split virus (incl. purified surface antigen)- retired CODE DoD FLU,3 YRS (HISTORICAL) [address] [facility] hepatitis A adult vaccine 2005 [id number] 52 Unknown complet ed hepatitis A adult vaccine 10/20/05 Given Ambulat ory Pharmac y hepatitis A adult vaccine 2005 [id number] 52 Unknown complet ed hepatitis A adult vaccine 10/20/05 Given Ambulat ory Pharmac y hepatitis A vaccine, adult dosage 3 2005 [id number] 52 Unknown (UNK) comple t ed hepatitis A vaccine, adult dosage DoD influenza virus vaccine,split 2004 [id number] 15 [employer] complet ed influenza virus vaccine,s plit 02/28/05 Given Ambulat ory Pharmac y influenza virus vaccine, split virus (incl. purified surface antigen)-reti red CODE 1 2004 [id number] 15 [employer] (AVB) complet ed influenza virus vaccine, split virus (incl. purified surface antigen)- retired CODE DoD TD(ADULT) UNSPECIFIED FORMULATION 2004 139 complet ed [facility] influenza virus vaccine,split 2003 UNK [...] Given Ambulat ory Pharmac y influenza virus vaccine, split virus (incl. purified surface antigen)-reti red CODE 1 2003 UNK 15 Unknown (UNK) comple t ed influenza virus vaccine, split virus (incl. purified surface antigen)- retired CODE DoD vaccinia (smallpox) vaccine 1 2003 UNK 75 Unknown (UNK) comple t ed vaccinia (smallpox ) vaccine DoD hepatitis A and hepatitis B vaccine 1 2003 UNK 104 Unknown (UNK) comple t ed hepatitis A and hepatitis B vaccine DoD anthrax vaccine 2003 UNK 24 Unknown complet [...] Given Ambulat ory Pharmac y anthrax vaccine 1 2003 UNK 24 Unknown (UNK) comple t ed anthrax vaccine DoD hepatitis A vaccine, adult dosage 1 2003 UNK 52 Unknown (UNK) comple t ed hepatitis A vaccine, adult dosage DoD typhoid Vi capsular polysaccharid e vaccine 1 2003 UNK 101 Unknown (UNK) comple t ed typhoid Vi capsular polysacch aride vaccine DoD hepatitis B adult vaccine 2003 [id number] 43 [employer] Inc complet ed hepatitis B adult vaccine 09/03/03 Given Ambulat ory Pharmac y hepatitis B adult vaccine 2003 [id number] 43 [employer] Inc complet ed hepatitis B adult vaccine 09/03/03 Given Ambulat ory Pharmac y hepatitis B vaccine, adult dosage 2 2003 [id number] 43 Merck (MSD) complet ed hepatitis B vaccine, adult dosage DoD meningococcal polysaccharid e (MPSV4) 2003 UNK 32 [...] l 07/22/03 Given Ambulat ory Pharmac y measles, mumps and rubella virus vaccine 1 2003 UNK 03 Unknown (UNK) comple t ed measles, mumps and rubella virus vaccine DoD tetanus and diphtheria toxoids, adsorbed, preservative free, for adult use (2 Lf of tetanus toxoid and 2 Lf of diphtheria toxoid) 1 2003 UNK 09 Unknown (UNK) comple t ed tetanus and diphtheri a toxoids, adsorbed, preservat myke free, for adult use (2 Lf of tetanus toxoid and 2 Lf of diphtheri a toxoid) DoD poliovirus vaccine, inactivated 1 2003 UNK 10 Unknown (UNK) comple t ed polioviru s vaccine, inactivat ed DoD influenza virus vaccine, split virus (incl. purified surface antigen)-reti red CODE 1 2003 UNK 15 Unknown (UNK) comple t ed influenza virus vaccine, split virus (incl. purified surface antigen)- retired CODE DoD meningococcal polysaccharid e vaccine (MPSV4) 1 2003 UNK 32 Unknown (UNK) comple t ed meningoco ccal polysacch aride vaccine (MPSV4) DoD hepatitis B vaccine, adult dosage 1 2003 UNK 43 Unknown (UNK) comple t ed hepatitis B vaccine, adult dosage DoD tuberculin purified protein derivative 2003 96 Unknown [...] Date Interpretation Specimen Comments Source Hematolog y Jackson Absolute 0.3 x10^3/mc L 0.2 - 0.8103 07/09 N 0055A-[address] [place] [address] Hematolog y Lymph Absolute 1.3 x10^3/mc L 1.2 - 4.0103 07/09 N 0055A-[address] [place] [address] [facility] Hematolog y Lymphocyte % Auto 31.3 % 20.0 - 40.0 07/09 N 0055A-[address] [place] [address] Hematolog y Basophil % Auto 0.5 % 0.0 - 2.5 07/09 N 0055A-[address] [place] [address] [facility] Hematolog y Baso Absolute 0.0 x10^3/mc L 0.0 - 0.1103 07/09 N 0055A-[address] [place] [address] Hematolog y Eosinophil % Auto 1 % 0 - 5 07/09 N 0055A-[address] [place] [address] Hematolog y Eos Absolute 0.1 x10^3/mc L 0.0 - 0.7103 07/09 N 0055A-[address] [place] [address] Hematolog y Neutrophil % Auto 59.3 % 46.0 - 77.0 07/09 N 0055A-[address] [place] [address] [facility] Hematolog y Neutro Absolute 2.5 x10^3/mc L 2.0 - 7.0103 07/09 N 0055A-[address] [place] [address] Hematolog y Monocyte % Auto 8 % 1 - 12 07/09 N 0055A-[address] [place] [address] Chemistry eGFR CKD EPI 94 mL/min/1 .73_m2 [...] 15-29 Severe decrease <15 Kidney failure 0055A[facility]3 [facility] Hematolog y MCH 24 pg 28 - 33 07/09 L 0055A-3 [facility] Talib Hematolog y MCV 78 fL 80 - 97 07/09 L 0055A-3 75th [facility] Hematolog y MCHC 30.9 g/dL 33.0 - 36.5 07/09 L 0055A-3 75[facility] Talib Hematolog y Differentia l? Auto (07/09/24 1:44 PM) 07/09 N 0055A-[address] [place] [address] Hematolog y Hemoglobin 11.4 g/dL 13.0 - 16.3 07/09 L 0055A-[address] [place] [address] Hematolog y Hematocrit 37 % 40 - 49 07/09 L 0055A-[address] [place] [address] Hematolog y RDW 17.0 % 11.0 - 14.9 07/09 H 0055A-[address] [place] [address] Hematolog y RBC 4.7 x10^6/mc L 4.0 - 5.6106 07/09 N 0055A-[address] [place] [address] Hematolog y WBC 4.3 x10^3/mc L 4.0 - 11.0103 07/09 N 0055A-[address] [place] [address] Hematolog y Platelets 256.0 x10^3/mc L 150.0 - 450.0103 07/09 N 0055A-[address] [place] [address] Hematolog y MPV 10.1 fL 7.4 - 10.4 07/09 N 0055A-[address] [place] [address] Chemistry Bilirubin Total 0.5 mg/dL 0.2 - 1.2 07/09 N 0055A-[address] [place] [address] Chemistry BUN/Creat Ratio 12 mg/dL 12 - 20 07/09 N 0055A-[address] [place] [address] Chemistry Protein Total 7.6 g/dL 6.4 - 8.3 07/09 N 0055A-[address] [place] [address] Chemistry BUN 12 mg/dL 8 - 26 07/09 N 0055A-[address] [place] [address] Chemistry Calcium 9.6 mg/dL 8.4 - 10.2 07/09 N 0055A-[address] [place] [address] Chemistry Chloride 106 mmol/L 98 - 107 07/09 N 0055A-[address] [place] [address] Chemistry Creatinine Level 1.00 mg/dL 0.72 - 1.25 07/09 N 0055A-[address] [place] [address] Chemistry CO2 27 mmol/L 22 - 29 07/09 N 0055A-[address] [place] [address] Chemistry Potassium Lvl 3.8 mmol/L 3.5 - 5.1 07/09 N 0055A-[address] [place] [address] Chemistry Glucose Lvl 91 mg/dL 74 - 99 07/09 N 0055A-[address] [place] [address] Chemistry Sodium 141 mmol/L 136 - 145 07/09 N 0055A-[address] [place] [address] Chemistry Alk Phos 57 U/L 40 - 150 07/09 N 0055A-[address] [place] [address] Chemistry AGAP 8.00 0.00 - 15.00 07/09 N 0055A-[address] [place] [address] Chemistry Albumin 4.10 g/dL 3.50 - 5.20 07/09 N 0055A-[address] [place] [address] Chemistry ALT 21 U/L 5 - 55 07/09 N -[address] [place] [address] Chemistry AST 21 U/L 5 - 34 07/09 N - [address] [place] [address] Chemistry Iron 25 ug/dL 59 - 158 [...] Prevention' s HIV diagnostic algorithm. Refer to [facility] Lab Guide for additional information : [email or web address]/ [email or web address] x Testing performed by [employer] [facility]. 5600A-U [facility] EPILAB Miscellan eous Sendouts Atypical ANCA.LC <1:20 Neg:<1:20 03/12 Result Comment: The atypical pANCA pattern has been observed in a significant percentage of patients with ulcerative colitis, primary sclerosing cholangitis and autoimmune hepatitis. Performed At: [address] [id number] Cuate Echevarria MD Ph:[phone] Performed At: [address] [id number] Irma Jimenez PhD Ph:[phone] 00 0055A-3 [facility] Miscellan eous Sendouts Anti-PR3 Antibodies LC <0.2 unit(s) 0.0 - 0.9 03/12 0055A-3 [facility] Songkickcellan eous Sendouts Perinuclear Ab.LC <1:20 Neg:<1:20 03/12 Result Comment: The presence of positive fluorescenc e exhibiting P-ANCA or C-ANCA patterns alone is not specific for the diagnosis of Ivette's Granulomato sis (WG) or microscopic polyangiiti s. Decisions about treatment should not be based solely on ANCA IFA results. The Internation al ANCA Group Consensus recommends follow up testing of positive sera with both [place]- 3 and MPO-ANCA enzyme immunoassay s. As many as 5% serum samples are positive only by EIA. Ref. AM J Clin Pathol 1999;111:50 7-513. 0055A-3 [facility] Miscellan eous Sendouts Cytoplasm+N eutrophil Ab.LC <1:20 Neg:<1:20 03/12 0055A-3 75[facility] Talib Miscellan eous Sendouts Anti-MPO Antibodies LC <0.2 unit(s) 0.0 - 0.9 03/12 0055A-3 [facility] Immunolog y/Serolog y Saccharomyc es Cerevisiae IgG.LC 72.2 unit(s) 0.0 - 24.9 03/12 H Result Comment: Negative <20.0 Equivocal 20.1 - 24.9 Positive >or= 25.0 0055A-3 [facility] Immunolog y/Serolog y Saccharomyc es Cerevisiae IgA.LC [...] controls had antibody for both. Performed At: [address] [place] [id number] Cuate Echevarria MD Ph:[phone] 44 5A-3 [facility] Talib Hematolog y Retic Hemoglobin Equivalent 26.6 pg 28.2 - 36.6 02/15 L 0055A-3 75[facility]- [place] Hematolog y Retic, Abs 0.067 x10^6/mc L 0.026 - 0.348623 02/15 N 0055A-3 [facility] [place] Hematolog y RBC 5.0 x10^6/mc L 4.0 - 5.6106 02/15 N 0055A-3 [facility] [place] Hematolog y Reticulocyt e % 1.33 % 0.50 - 1.81 02/15 N 0055A-3 [facility] Hematolog y Differentia l? Auto (02/16/24 10:20 AM) 02/15 N 0055A-3 [facility]- [place] Hematolog y MCHC 31.0 g/dL 33.0 - 36.5 02/15 L 0055A-3 [facility] Hematolog y MCV 75 fL 80 - 97 02/15 L 0055A-[address] [place] [address]- [facility] Hematolog y Hemoglobin 11.7 g/dL 13.0 - 16.3 02/15 L 0055A-[address] [place] [address]- Tal[facility] Hematolog y MCH 23 pg 28 - 33 02/15 L 0055A-[address] [place] [address]- Tal[facility] Hematolog y Hematocrit 38 % 40 - 49 02/15 L 0055A-[address] [place] [address]- Tal[facility] Hematolog y WBC 4.6 x10^3/mc L 4.0 - 11.0103 02/15 N 0055A-[address] [place] [address] Hematolog y RDW 17.5 % 11.0 - 14.9 02/15 H 0055A-[address] [place] [address] Hematolog y MPV 9.9 fL 7.4 - 10.4 02/15 N 0055A-[address] [place] [address] Hematolog y Platelets 330.0 x10^3/mc L 150.0 - 450.0103 02/15 N 0055A-[address] [place] [address] Chemistry Calcium 9.8 mg/dL 8.4 - 10.2 02/15 N 0055A-[address] [place] [address] Chemistry BUN 13 mg/dL 8 - 26 02/15 N 0055A-[address] [place] [address] Chemistry BUN/Creat Ratio 13 mg/dL 12 - 20 02/15 N 0055A-[address] [place] [address] Chemistry Chloride 106 mmol/L 98 - 107 02/15 N 0055A-[address] [place] [address] Chemistry CO2 28 mmol/L 22 - 29 02/15 N 0055A-[address] [place] [address] Chemistry Albumin 4.00 g/dL 3.50 - 5.20 02/15 N 0055A-[address] [place] [address] Chemistry Creatinine Level 1.00 mg/dL 0.72 - 1.25 02/15 N 0055A-[address] [place] [address] Chemistry Alk Phos 58 U/L 40 - 150 02/15 N 0055A-[address] [place] [address] Chemistry Glucose Lvl 102 mg/dL 74 - 99 02/15 H 5A-[address] [place] [address] Chemistry ALT 13 U/L 5 - 55 02/15 N 0055A-[address] [place] [address] Chemistry Potassium Lvl 4.4 mmol/L 3.5 - 5.1 02/15 N 0055A-[address] [place] [address] Chemistry AST 20 U/L 5 - 34 02/15 N -[address] [place] [address] Chemistry Sodium 142 mmol/L 136 - 145 02/15 N -[address] [place] [address] Chemistry Bilirubin Total 0.6 mg/dL 0.2 - 1.2 02/15 N -[address] [place] [address] Chemistry Protein Total 7.4 g/dL 6.4 - 8.3 02/15 N -[address] [place] [address] Chemistry AGAP 8.00 0.00 - 15.00 02/15 N -[address] [place] [address] Chemistry Iron 20 ug/dL 59 - 158 02/15 L Interpretiv e Data: METHODOLOGY : Testing performed by colorimetri c assay. [facility] TIBC 205 ug/dL 250 - 400 02/15 L 5600A-U [facility] EPILAB Chemistry Transferrin Sat 10 % 14 - 50 02/15 L 5600A-U [facility] EPILAB Chemistry UIBC, 185.0 ug/dL 112.0 - 347.0 02/15 N 5600A-U [facility] EPILAB Chemistry Ferritin Lvl 8.61 ng/mL 30.00 - 400.00 02/15 L Interpretiv e Data: METHODOLOGY : Testing performed by electrochem iluminescen t immunoassay (ECLIA). 5600A-U [facility] EPILAB Chemistry GGT 41 U/L 12 - 64 02/15 N 0055A-[address] [place] [address] Chemistry eGFR CKD EPI 94 mL/min/1 .73_m2 [...] 15-29 Severe decrease <15 Kidney failure 0055A-3 75[facility]- [place] Hematolog y Basophil % Auto 0.6 % 0.0 - 2.5 02/15 N 0055A-3 [facility] Hematolog y Eos Absolute 0.1 x10^3/mc L 0.0 - 0.7103 02/15 N 0055A-3 [facility] Hematolog y Baso Absolute 0.0 x10^3/mc L 0.0 - 0.1103 02/15 N 0055A-3 [facility] Hematolog y Jackson Absolute 0.4 x10^3/mc L 0.2 - 0.8103 02/15 N 0055A-[address] [place] [address] Hematolog y Monocyte % Auto 10 % 1 - 12 02/15 N 0055A-[address] [place] [address] Hematolog y Lymph Absolute 1.6 x10^3/mc L 1.2 - 4.0103 02/15 N 0055A- [address] [place] [address] Hematolog y Eosinophil % Auto 2 % 0 - 5 02/15 N - [address] [place] [address] Hematolog y Lymphocyte % Auto 34.6 % 20.0 - 40.0 02/15 N 0055A- [address] [place] [address] Hematolog y Neutro Absolute 2.5 x10^3/mc L 2.0 - 7.0103 02/15 N - [address] [place] [address] Hematolog y Neutrophil % Auto 53.4 % 46.0 - 77.0 02/15 N - [address] [place] [address] Hematolog y Hered Hemochromat osis DNA.LC COMMENT 01/11 Result Comment: Results: c.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 Comments: The most common HFE variants associated with hereditary hemochromat osis are c.845G>A (p.Jgz516Ai r), c.187C>G (p.Aff27Okr ), c.193A>T (p.Jqn07Jlk ). While patients homozygous for c.845G>A (p.Lxd647Iv r) are the most likely to present clinical symptoms, less than 10% develop clinically significant iron overload with tissue and organ damage. Genetic counseling is recommended to discuss the potential clinical implication s of positive results, as well as recommendat ions for testing family members. Payroll Officer s are available for health care providers to discuss results at [phone] [facility] [phone]). Test Details: Three variants analyzed: c.845G>A (p.Hte525Tu r), commonly referred to as C282Y c.187C>G (p.Vzi00Vnc ), commonly referred to as H63D c.193A>T (p.Ghl88Cvv ), commonly referred to as S65C Methods/Chung [...] and its performance characteris tics determined by [employer]. It has not been cleared or approved by the Food and Drug Administrat ion. References: Matthew BR, Wilber PC, Demarco KV, Rasheed LW, Nahum ; [employer]. Diagnosis and management of hemochromat osis: 2011 practice guideline by the [employer] Liver [employer]. Hepatology. 2011 Oct;54(1):3 28-43. doi: 10.1002/hep .05405. PMID: 98534684; PMCID: [id number]. Jeremiah G, Marek P, Sybil DW, Charles H, Randee O, Aditya S, Alfred I, Wilmer M, Bert Mcpherson. [facility] best practice guidelines for the molecular genetic diagnosis of hereditary hemochromat osis (HH). Eur J Hum Jennifer. 2016 Jul;24(4):4 79-95. doi: 10.1038/h g.2015.128. Epub 2014Oct 16. PMID: 09772304; PMCID: [id number]. 0055A-3 [facility] Hematolog y RBC Count.LC 4.91 10^6/uL 01/11 0055A-3 [facility] Hematolog y Hemoglobin. LC 10.9 g/dL 01/11 L 0055A-3 [facility] [place] Hematolog y Hematocrit. LC 37.7 % 01/11 0055A- [facility] [place] Hematolog y MCV.LC 77 fL 01/11 L 0055A-3 [facility] [place] Hematolog y MCHC.LC 28.9 g/dL 01/11 L 0055A-3 [facility] [place] Hematolog y RDW.LC 17.3 % 01/11 H 5A-3 [facility] [place] Hematolog y Platelets.L C 320 10^3/uL 01/11 0055A-3 [facility] [place] Hematolog y Neutrophils .LC 58 % 01/11 0055A-3 [facility] [place] Hematolog y MCH.LC 22.2 pg 01/11 L 0055A-3 [facility] [place] Hematolog y Monocytes.L C 10 % 01/11 0055A-3 [facility] [place] Hematolog y Eos.LC 1 % 01/11 0055A-3 [facility] [place] Hematolog y Basos.LC 1 % 01/11 0055A-3 [facility] [place] Hematolog y Neutrophils (Abs).LC 2.8 10^3/uL 01/11 0055A-3 [facility] [place] Hematolog y Lymphs.LC 30 % 01/11 0055A-3 [facility] [place] Hematolog y Eos (Abs).LC 0.1 10^3/uL 01/11 0055A-3 [facility] [place] Hematolog y Basos (Abs).LC 0.0 10^3/uL 01/11 0055A-3 [facility] [place] Hematolog y Immature Granulocyte s.LC 0 % 01/11 0055A-3 [facility] [place] Hematolog y Lymphs (Abs).LC 1.4 10^3/uL 01/11 0055A-3 [facility] [place] Hematolog y Monocytes (Abs).LC 0.5 10^3/uL 01/11 0055A-3 [facility] [place] Hematolog y WBC.LC 4.8 10^3/uL 01/11 0055A-3 [facility] [place] Hematolog y Immature Grans (Abs).LC 0.0 10^3/uL 01/11 Result Comment: Performed At: [address] [place] [id number] Irma Jimenez PhD Ph:[phone] - [address] [place] [address] Chemistry Transferrin Sat 13 % 14 - 50 01/11 L 5600A-U [facility] EPILAB Chemistry UIBC, 129.0 ug/dL 112.0 - 347.0 01/11 N 5600A-U [facility] EP[facility] Chemistry Iron 19 ug/dL 59 - 158 01/11 L Interpretiv e Data: METHODOLOGY : Testing performed by colorimetri c assay. 5600A-U [facility] EPIL[facility] Chemistry TIBC 148 ug/dL 250 - 400 01/11 L 5600A-U [facility] EPILAB Chemistry Ferritin Lvl 3.57 ng/mL 30.00 - 400.00 01/11 L Interpretiv e Data: METHODOLOGY : Testing performed by electrochem iluminescen t immunoassay (ECLIA). 5600A-U [facility] EPILAB Miscellan eous Sendouts LDH.LC 133 [iU]/L 01/11 Result Comment: Performed At: [address] [id number] Irma Jimenez PhD Ph:[phone] [place] [address] Chemistry Haptoglobin 81 mg/dL 01/11 Result Comment: Performed At: [address] [place], [place] [id number] Irma Jimenez PhD Ph:[phone] 00 005-3 [facility] Hematolog y Smear Review See comment 01/11 [...] Sriram Gonzalez MD 01/24/24 15:04:12 EDT 0095A-8 [facility]- [facility]- PAT Hematolog y Lymphocyte % Auto 34.1 % 20.0 - 40.0 12/26 N 0055A-3 [facility] [place] Hematolog y Eos Absolute 0.1 x10^3/mc L 0.0 - 0.7103 12/26 N 0055A-3 [facility] [place] Hematolog y Eosinophil % Auto 1 % 0 - 5 12/26 N 0055A-3 [facility] [place] Hematolog y Baso Absolute 0.0 x10^3/mc L 0.0 - 0.1103 12/26 N 0055A-3 [facility] [place] Hematolog y Basophil % Auto 0.5 % 0.0 - 2.5 12/26 N 0055A-3 [facility] [place] Hematolog y Neutrophil % Auto 53.2 % 46.0 - 77.0 12/26 N 0055A-3 [facility] [place] Hematolog y Monocyte % Auto 10 % 1 - 12 12/26 N 0055A-3 [facility] [place] Hematolog y Neutro Absolute 2.2 x10^3/mc L 2.0 - 7.0103 12/26 N 0055A-3 [facility] [place] Hematolog y Jackson Absolute 0.4 x10^3/mc L 0.2 - 0.8103 12/26 N 0055A-3 [facility]- [place] Hematolog y Lymph Absolute 1.4 x10^3/mc L 1.2 - 4.0103 12/26 N 0055A[facility] Stomatocyte s Occasion al (12/27/23 7:59 AM) 12/26 N 0055A-3 [facility] H[facility] PLT Morph Adequate (12/27/23 7:59 AM) 12/26 N 0055A-3 [facility] Hemat[facility] Ovalocytes Occasion al (12/27/23 7:59 AM) 12/26 N [facility]55[facility] Microcyte 1+ (12/27/23 7:59 AM) 12/26 N 0055[facility] Hypochrom 1+ (12/27/23 7:59 AM) 12/26 N 0055A-3 [facility] Hemat[facility] PLT Estimate Not Performe d (12/27/23 7:59 AM) 150.0 - 450.0 12/26 N [facility]55[facility] Platelets 320.0 x10^3/mc L 150.0 - 450.0103 12/26 N 0055A-3 [facility] MPV 10.1 fL 7.4 - 10.4 12/26 N 0055A-3 [facility] H[facility] WBC 4.2 x10^3/mc L 4.0 - 11.0103 12/26 N 0055A-3 [facility] MCV 73 fL 80 - 97 12/26 L [facility] RDW 18.7 % 11.0 - 14.9 12/26 H [facility]55[facility] MCH 22 pg 28 - 33 12/26 L [facility]55[facility] MCHC 30.5 g/dL 33.0 - 36.5 12/26 L [facility]55[facility] RBC 5.0 x10^6/mc L 4.0 - 5.6106 12/26 N 0055A-[address] [place] [address] Hematolog y Hemoglobin 11.1 g/dL 13.0 - 16.3 12/26 L 0055A-[address] [place] [address] Hematolog y Hematocrit 36 % 40 - 49 12/26 L 0055A-[address] [place] [address] Hematolog y Differentia l? Auto+Mor ph *ABN* (12/27/23 7:59 AM) 12/26 A 0055A-[address] [place] [address] Chemistry Calcium 9.3 mg/dL 8.4 - 10.2 12/26 N 0055A-[address] [place] [address] Chemistry CO2 25 mmol/L 22 - 29 12/26 N 0055A-[address] [place] [address] Chemistry Chloride 106 mmol/L 98 - 107 12/26 N 0055A-[address] [place] [address] Chemistry BUN/Creat Ratio 11 mg/dL 12 - 20 12/26 L 0055A-[address] [place] [address] Chemistry BUN 11 mg/dL 8 - 26 12/26 N 0055A-[address] [place] [address] Chemistry Bilirubin Total 0.6 mg/dL 0.2 - 1.2 12/26 N 0055A-[address] [place] [address] Chemistry Protein Total 6.9 g/dL 6.4 - 8.3 12/26 N 0055A-[address] [place] [address] Chemistry AST 17 U/L 5 - 34 12/26 N 0055A-[address] [place] [address] Chemistry Sodium 140 mmol/L 136 - 145 12/26 N 0055A-[address] [place] [address] Chemistry ALT 16 U/L 5 - 55 12/26 N 0055A-[address] [place] [address] Chemistry Creatinine Level 1.00 mg/dL 0.72 - 1.25 12/26 N 0055A-[address] [place] [address] Chemistry Albumin 3.80 g/dL 3.50 - 5.20 12/26 N 0055A-[address] [place] [address] Chemistry AGAP 9.00 0.00 - 15.00 12/26 N 0055A-[address] [place] [address] Chemistry Potassium Lvl 3.8 mmol/L 3.5 - 5.1 12/[address] [place] [address] Chemistry Glucose Lvl 100 mg/dL 74 - 99 12/[address] [place] [address] Chemistry Alk Phos 49 U/L 40 - 150 12/[address] [place] [address] Chemistry eAvg Glucose 117 mg/dL 12/[address] [place] [address] Chemistry Hemoglobin A1c 5.7 % 4.0 - [...] the patient and ordering Hemoglobin Electrophor esis. [address] [place] [address] Chemistry Chol/HDL 4 mg/dL 12/[address] [place] [address] Chemistry HDL Cholesterol 47 mg/dL 40 - 59 12/26 N Interpretiv e Data: HDL (HIGH DENSITY LIPOPROTEIN ): ADULTS: Low: < 40 mg/dL High: >/= 60 mg/dL AGES 0 -19: Low: < 40 mg/dL Borderline Low: 40 - 45 mg/dL Acceptable: > 45 mg/dL [address] [place] [address] Chemistry Cholesterol Total 181 mg/dL 12/26 N Interpretiv e Data: According to the [employer] : AGES 0-19: Desirable: < 170 mg/dL Borderline High: 170-199 mg/dL High Blood Cholesterol : >/= 200 mg/dL ADULTS: Desirable < 200 mg/dL Borderline High: 200-239 mg/dL High Blood Cholesterol : >/= 240 mg/dL [address] [place] [address] Chemistry Triglycerid es 114 mg/dL 7 - 149 12/26 N Interpretiv e Data: AGES 0-9: Desirable: < 75 mg/dL Borderline High: 75-99 mg/dL High: >/= 100 mg/dL AGES 10-19: Desirable: < 90 mg/dL Borderline High: 90-129 mg/dL High: >/= 130 mg/dL ADULTS: Desirable: < 150 mg/dL Borderline High: 150-199 mg/dL High: >/= 240 mg/dL Very High: >/= 500 mg/dL -[address] [place] [address] Chemistry LDL/HDL 3 12/26-[address] [place] [address] Chemistry LDL 134 mg/dL 100 - 130 12/26 H Interpretiv e Data: AGES 0-19: Desirable: < 110 mg/dL Borderline High: 110-129 mg/dL High: >/= 130 mg/dL ADULTS: Desirable: <100 mg/dL Near/above optimal: 100-130 mg/dL Borderline High: 131-159 mg/dL High: 160-189 mg/dL Very High: 190 mg/dL - [address] [place] [address] Chemistry Testosteron e Serum LC 606 ng/dL 12/26 Result Comment: Adult male reference interval is based on a population of healthy nonobese males (BMI <30) between 19 and 39 years old. Lizzeth et.al. JCEM 2017,102;11 61-1173. PMID: [id number]. Performed At: [address] [id number] Irma Jimenez PhD Ph:[phone] [place] [address] Chemistry Vitamin D 25 OH 69.5 ng/mL [...] n, and other findings. Testing performed by [employer]. [facility] Chemistry TSH 1.200 mIU/L 0.270 - 4.200 12/26 N Interpretiv e Data: Recommend: TPO/Thyrope roxidase Antibody when TSH result is > 4.2 uIU/mL [facility] Chemistry PSA Total 0.72 ng/mL 0.05 - 2.00 12/26 N Interpretiv e Data: This assay shows no biotin interferenc e in samples with biotin concentrati ons up to 1200 ng/mL. 0117A-A F-ASU-5 [facility] Chemistry eGFR CKD EPI 94 mL/min/1 [...] 15-29 Severe decrease <15 Kidney failure 0055A-[address] [place] [address] URINALYSI S (PAULETTE) COLOR OF URINE Yellow 01/13 Specimen Type: URINE Comment: Microscopic not indicated Ordering Provider: RAKESH PARRA Report Released Date/Time: Jan 13, 2023 12:12 PM Reporting Lab: [address] [address] Performing Lab: [address] [address] [facility] URINALYSI S (PAULETTE) *URINE APPEARANCE Clear 01/13 Specimen Type: URINE Comment: Microscopic not indicated Ordering Provider: RAKESH PARRA Report Released Date/Time: Jan 13, 2023 12:12 PM Reporting Lab: [address] [address] Performing Lab: [address] [address] [facility] URINALYSI S ([place]TTE) PROTEIN [MASS/TIME] IN 24 HOUR URINE Negative mg/dL 01/13 Specimen Type: URINE Comment: Microscopic not indicated Ordering Provider: RAKESH PARRA Report Released Date/Time: Jan 13, 2023 12:12 PM Reporting Lab: [facility] [address] [facility] [address] Performing Lab: [address] [address] [facility] URINALYSI S ([place]TTE) LEUKOCYTE ESTERASE [PRESENCE] IN URINE BY TEST STRIP Negative 01/13 Specimen Type: URINE Comment: Microscopic not indicated Ordering Provider: RAKESH PARRA Report Released Date/Time: Jan 13, 2023 12:12 PM Reporting Lab: [facility] [address] [facility] [address] Performing Lab: [address] [address] [facility] URINALYSI S () NITRITE [PRESENCE] IN URINE BY TEST STRIP Negative 01/13 Specimen Type: URINE Comment: Microscopic not indicated Ordering Provider: RAKESH PARRA Report Released Date/Time: Jan 13, 2023 12:12 PM Reporting Lab: [facility] [address] [facility] [address] Performing Lab: [address] [address] [facility] URINALYSI S () *URINE BLOOD Negative 01/13 Specimen Type: URINE Comment: Microscopic not indicated Ordering Provider: RAKESH PARRA Report Released Date/Time: Jan 13, 2023 12:12 PM Reporting Lab: [address] [address] Performing Lab: [address] [address] [facility] URINALYSI S () GLUCOSE [MASS/VOLUM E] IN 24 HOUR URINE Negative mg/dL 01/13 Specimen Type: URINE Comment: Microscopic not indicated Ordering Provider: RAKESH PARRA Report Released Date/Time: Jan 13, 2023 12:12 PM Reporting Lab: [address] [address] Performing Lab: [address] [address] [facility] URINALYSI S () KETONES [MASS/VOLUM E] IN URINE BY TEST STRIP Negative mg/dL 01/13 Specimen Type: URINE Comment: Microscopic not indicated Ordering Provider: RAKESH PARRA Report Released Date/Time: Jan 13, 2023 12:12 PM Reporting Lab: [address] [address] Performing Lab: [address] [address] [facility] URINALYSI S () PH OF URINE BY TEST STRIP 6.5 5.0 - 8.0 01/13 Specimen Type: URINE Comment: Microscopic not indicated Ordering Provider: RAKESH PARRA Report Released Date/Time: Jan 13, 2023 12:12 PM Reporting Lab: [facility] [address] [facility] [address] Performing Lab: [facility] [address] [facility] [address] [facility] URINALYSI S () SPECIFIC GRAVITY OF URINE 1.019 1.005 - 1.030 01/13 Specimen Type: URINE Comment: Microscopic not indicated Ordering Provider: RAKESH PARRA Report Released Date/Time: Jan 13, 2023 12:12 PM Reporting Lab: [facility] [address] [facility] [address] Performing Lab: [facility] [address] [place] [address] [facility] URINALYSI S () BILIRUBIN.T OTAL [PRESENCE] IN URINE BY TEST STRIP Negative 01/13 Specimen Type: URINE Comment: Microscopic not indicated Ordering Provider: RAKESH PARRA Report Released Date/Time: Jan 13, 2023 12:12 PM Reporting Lab: [facility] [address] [facility] [address] Performing Lab: [facility] [address] [place] [address] [facility] URINALYSI S () *URINE UROBILINOGE N Normalmg /dL 01/13 Specimen Type: URINE Comment: Microscopic not indicated Ordering Provider: RAKESH PARRA Report Released Date/Time: Jan 13, 2023 12:12 PM Reporting Lab: [facility] [address] [facility] [address] Performing Lab: [facility] [address] [facility] [address] [facility] VITAMIN B12 COBALAMIN (VITAMIN B12) [MASS/VOLUM E] IN SERUM OR PLASMA 435.1 pg/mL 213 - 816 12/09 Specimen Type: SERUM No comment entered. Ordering Provider: KATHRYN MEDINA Report Released Date/Time: Dec 09, 2022 03:18 PM Reporting Lab: [facility] [address] [facility] [address] Performing Lab: [facility] [address] [facility] [address] [facility] Vital Signs Combined list of inpatient and [...] 06/08/2024 21:48:00 [facility] Mean Arterial Pressure, Cuff (Calc) 82 mm[Hg] 06/08/2024 21:48:00 [facility] Peripheral Pulse Rate 87 bpm 06/08/2024 21:48:00 [facility] Temperature Tympanic 36.8 [place] 06/08/2024 21:48:00 [facility] BP Site Left arm 06/08/2024 21:48:00 [facility] Blood Pressure Manual Automatic 07/18/2023 13:01:00 [facility] Systolic Blood Pressure 125 mm[Hg] 03/13/2024 16:13:00 [facility] Diastolic Blood Pressure 86 mm[Hg] 03/13/2024 16:13:00 [facility] Mean Arterial Pressure, Cuff (Calc) 99 mm[Hg] 03/13/2024 16:13:00 [facility] Peripheral Pulse Rate 58 bpm 03/13/2024 16:13:00 [facility] Respiratory Rate 16 br/min 03/13/2024 16:13:00 [facility] Temperature Oral 36.5 [place] 03/13/2024 16:13:00 [facility] BP Site Left arm 03/13/2024 16:13:00 [facility] Blood Pressure Manual Automatic 03/13/2024 16:13:00 [facility] Blood Pressure Manual Automatic 07/31/2024 16:47:00 [facility] BP Site Left arm 07/31/2024 16:47:00 [facility] Systolic Blood Pressure 114 mm[Hg] 07/31/2024 16:47:00 [facility] Diastolic Blood Pressure 72 mm[Hg] 07/31/2024 16:47:00 [facility] Mean Arterial Pressure, Cuff (Calc) 86 mm[Hg] 07/31/2024 16:47:00 [facility] Respiratory Rate 18 br/min 07/31/2024 16:47:00 [facility] Peripheral Pulse Rate 70 bpm 07/31/2024 16:47:00 [facility] Temperature Oral 36.8 [place] 07/31/2024 16:47:00 [facility] Mean Arterial Pressure, Cuff (Calc) 84 mm[Hg] 02/16/2024 14:21:00 [facility] Temperature [...] Site Left arm 12/05/2023 13:19:00 [facility] Mean Arterial Pressure, Cuff (Calc) 78 mm[Hg] 12/05/2023 13:19:00 [facility] Peripheral Pulse Rate 70 bpm 12/05/2023 13:19:00 [facility] Respiratory Rate 16 br/min 12/05/2023 13:19:00 [facility] Temperature Oral 36.9 [place] 12/05/2023 13:19:00 [facility] Systolic Blood Pressure 98 mm[Hg] 12/05/2023 13:19:00 [facility] Diastolic Blood Pressure 68 mm[Hg] 12/05/2023 13:19:00 [facility] Systolic Blood Pressure 103 mm[Hg] 08/15/2024 18:04:00 [facility] Diastolic Blood Pressure 64 mm[Hg] 08/15/2024 18:04:00 [facility] Respiratory Rate 18 br/min 08/15/2024 18:04:00 [facility] Mean Arterial Pressure, Cuff (Calc) 77 mm[Hg] 08/15/2024 18:04:00 [facility] Peripheral Pulse Rate 75 bpm 08/15/2024 18:04:00 [facility] Peripheral Pulse Rate 58 bpm 08/23/2024 15:24:00 [facility] Mean Arterial Pressure, Cuff (Calc) 86 mm[Hg] 08/23/2024 15:24:00 [facility] Respiratory Rate 16 br/min 08/23/2024 15:24:00 [facility] BP Site Left arm 08/23/2024 15:24:00 [facility] Temperature Oral 36.7 [place] 08/23/2024 15:24:00 [facility] Blood Pressure Manual Automatic 08/23/2024 15:24:00 [facility] Systolic Blood Pressure 113 mm[Hg] 08/23/2024 15:24:00 [facility] Diastolic Blood Pressure 72 mm[Hg] 08/23/2024 15:24:00 [facility] BP Site Left arm 10/21/2023 14:01:00 [facility] Blood Pressure Manual Automatic 10/21/2023 14:01:00 [facility] Temperature Oral 36.9 [place] 10/21/2023 14:01:00 [facility] Mean Arterial Pressure, Cuff (Calc) 84 mm[Hg] 02/21/2024 14:31:00 [facility] Respiratory Rate 16 br/min 02/21/2024 14:31:00 [facility] Peripheral Pulse Rate 72 bpm 02/21/2024 14:31:00 [facility] Temperature Oral 36.8 [place] 02/21/2024 14:31:00 [facility] Systolic Blood Pressure 107 mm[Hg] 02/21/2024 14:31:00 [facility] Diastolic Blood Pressure 72 mm[Hg] 02/21/2024 14:31:00 [facility] Temperature Oral 36.9 [place] 10/18/2023 13:30:00 [facility] Blood Pressure Manual Automatic 10/18/2023 13:30:00 [facility] BP Site Left arm 10/18/2023 13:30:00 [facility] Mean Arterial Pressure, Cuff (Calc) 85 mm[Hg] 12/13/2023 14:58:00 [facility] Systolic [...] Left arm 12/13/2023 14:58:00 [facility] Temperature Oral 36.5 [place] 11/04/2023 19:16:00 [facility] Blood Pressure Manual Automatic 11/04/2023 19:16:00 [facility] BP Site Right arm 11/04/2023 19:16:00 [facility] Blood Pressure Manual Automatic 06/22/2024 15:31:00 [facility] BP Site Left arm 06/22/2024 15:31:00 [facility] Mean Arterial Pressure, Cuff (Calc) 85 mm[Hg] 06/22/2024 15:31:00 [facility] Systolic Blood Pressure 110 mm[Hg] 06/22/2024 15:31:00 [facility] Diastolic Blood Pressure 72 mm[Hg] 06/22/2024 15:31:00 [facility] Respiratory Rate 16 br/min 06/22/2024 15:31:00 [facility] Peripheral Pulse Rate 60 bpm 06/22/2024 15:31:00 [facility] Encounters Combined list of: 1) Encounters from Department of Veterans Affairs facilities going backup to the last 18 months, not all VA inpatient encounters are included; 2) Encounters from the Department of Defense facilities going backup to 280 months. Location Location Details Encounter Type Encounter Number Reason For Visit Attending Provider ADM Date DC Date Status Disposition Source [place] OUTPATIENT [id number] BIJU BEN E 12/03 Released with Work/Duty Limitations [place] Promotion [facility]) OUTPATIENT [id number] in process MARANDA CABRERA 12/29 Released w/o Limitations [place](Heal th Promoti [facility]) [place]a [facility]ional [facility]) OUTPATIENT [id number] [facility] GRUPO CAI 12/29 Released w/o Limitations [place](Occu pationa l Health [facility]) [place]([facility] try) OUTPATIENT [id number] rt eye exam MAMADOU SABA 01/30 Released w/o Limitations [place]([facility]o metry) [facility] OUTPATIENT [id number] 02/17 Released w/o Limitations Theater Facilit [facility] [place](Physic al Exam Section) OUTPATIENT [id number] 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 KAYA 05/03 Released w/o Limitations [place](Phys ical Exam Section ) [place]([facility]) OUTPATIENT [id number] rou eye exam MAMADOU SABA 06/03 Released w/o Limitations [place](Opto metry) [place](Occupa tional Health [facility]) OUTPATIENT [id number] [facility] MARYBETH BURR 07/20 Released w/o Limitations [place] [place]([facility] try) OUTPATIENT [id number] f/u on prk surgery MAMADOU SABA 09/17 Released w/o Limitations [place]([facility]o [facility]) [place]([facility]) OUTPATIENT [id number] prk phy MAMADOU SABA 10/06 Released w/o Limitations [place]([facility]o metry) [employer]([facility] C IRR/SRP) OUTPATIENT [id number] LVL 1 MEL IRVIN Palomo 09/19 Released w/o Limitations [employer](M AHC IRR/SRP ) [employer](MAC H Irr/Immun ization) OUTPATIENT [id number] ISABELLS HALIMA BURGOS 09/21 Released w/o Limitations [employer](M ACH Irr/Imm unizati on) [employer](C Ambulator y) OUTPATIENT [id number] MARIA ALEJANDRA DOMINGUEZ 09/25 Released with Work/Duty Limitations [employer](T MC Ambulat ory) [employer](C Ambulator y) OUTPATIENT [id number] JASON GUSTAFSON 10/03 Released with Work/Duty Limitations [employer](T MC Ambulat ory) [employer]([facility] Ambulator y) OUTPATIENT [id number] BRIGITTE GUSTAFSON Wendy 10/24 Sick at Home/Quarter s [employer](T MC Ambulat ory) [employer]([facility]) OUTPATIENT [id number] 31yo c/o diadaniel and RIKKI Farmer 10/25 Sick at Home/Quarter s [employer]([facility]) [employer]([facility] Ambulator y) OUTPATIENT [id number] ROSALINA MCDONALD 11/07 Released with Work/Duty Limitations [employer](T MC Ambulat ory) [employer]([facility] Ambulator y) OUTPATIENT [id number] insect bite MOMO GIRALDO 11/21 Released w/o Limitations [employer](T [facility] Ambulat ory) [employer]([facility] Ambulator y) OUTPATIENT [id number] LIBIA CHURCHILL 11/25 Released w/o Limitations [employer](T MC Ambulat ory) [employer]([facility] Ambulator y) OUTPATIENT [id number] IKE BLACKWOOD 11/29 Sick at Home/Quarter s [facility](T MC Ambulat ory) JANINA Leavitt([facility]) TELE CONSULT [id number] Notes Entered by: MUNA FARLEY 15 Sep 2017 0945 ------- ------- ------- ------- -- TPR Poly-Ph armacy 18.03 Cohort #5 MUNA KELLEY 09/15 JANINA Leavitt([facility]) [facility] Outpatient Encounter [id number] Pennie ERNANDEZ A 03/30 [facility] Outpatient Encounter [id number] 07/05 [facility] Outpatient Encounter [id number] 07/06 [facility] CHIROPRACT MANJ 3-4 [facility] [id number] Diagnos is: ICD-10- CM M54.51 Vertebr ogenic low back pain SUJATAARAM 01/16 [facility] Outpatient Encounter [id number] 01/31 [facility] kailash Between Visit [id number] 11/06 Discharge Disposition: Home or Self Care [facility] Between Visit [id number] 11/13 Discharge Disposition: Home or Self Care [facility] Between Visit [id number] 11/13 Discharge Disposition: Home or Self Care [facility] Between Visit [id number] 11/15 Discharge Disposition: Home or Self Care [facility]ash PreRecurri ng [id number] BINU YOUNGBLOOD 11/28 [facility] Procedures Combined list of: 1) Procedures from Department of Veterans Affairs facilities going back up to thelast 18 months, not all [place] non-surgical procedures are included; 2) All procedures from the Department of Defense facilities. Procedure Procedure Type Code Date Perfomer Comments Sourc e No data available for this section Ambulato ry Pharmacy UNLISTED PROCEDURE, ANTERIOR SEGMENT OF EYE 006 [facility] PHOTOREFRACTIVE KERATECTOMY (PRK) 006 [facility] COMPUTERIZED CORNEAL TOPOGRAPHY, UNILATERAL 006 [facility] THERAPEUTIC, PROPHYLACTIC OR DIAGNOSTIC INJECTION (SPECIFY SUBSTANCE OR DRUG); INTRAVENOUS PUSH, SINGLE OR INITIAL SUBSTANCE/DRUG 008 [facility] SKIN TEST; TUBERCULOSIS, INTRADERMAL 008 [facility] PHYS/OTH QUALIFIED HEALTH CORE MAKER HELPER QUALIFIED,EDUCATION ,TRAIN,LICENSURE/RE GULATION (WHEN APPLICABLE) EDUC SER RENDERED TO PATS IN A GRP SETTING (EG,,OBESIT Y,OR DIABETIC INSTRUCT) 008 [facility] PUNCTURE ASPIRATION OF ABSCESS, HEMATOMA, BULLA, OR CYST 004 DoD INJECTION, PENICILLIN G BENZATHINE, UP TO 2,400,000 UNITS 004 DoD FITTING OF SPECTACLES, EXCEPT FOR APHAKIA; MONOFOCAL 004 DoD DETERMINATION OF REFRACTIVE STATE DoD DETERMINATION OF REFRACTIVE STATE [facility] PHYS/OTH QUALIFIED HEALTH CORE MAKER HELPER QUALIFIED,EDUCATION ,TRAIN,LICENSURE/RE GULATION (WHEN APPLICABLE) EDUC SER RENDERED TO PATS IN A GRP SETTING (EG,,OBESIT Y,OR DIABETIC INSTRUCT) [facility] SELF-CARE/HOME MANAGMENT TRAIN (EG,ACT OF DAILY LIVING (ADL) &COMPENSAT TRAIN,MEAL PREPARATION,SAFETY PROCS,AND INSTRUCT IN USE OF ASST TECHNOLOGY DEV/ADPT EQUIP) DIR ONE-ON-ONE CONT,EA 15 MINUTES DoD FITTING OF SPECTACLES, EXCEPT FOR APHAKIA; MONOFOCAL [facility] OPHTHALMOLOGICAL SERVICES: MEDICAL EXAMINATION AND EVALUATION WITH INITIATION OF DIAGNOSTIC AND TREATMENT PROGRAM; INTERMEDIATE, NEW PATIENT 004 DoD PURE TONE AUDIOMETRY (THRESHOLD); AIR ONLY 004 DoD Injection, ketorolac tromethamine, per 15 mg 008 RIKKI FORREST Toradol 30mg IV given by Margo Dominique RN at 21:35 for c/o 8/10 abd pain Claudia Tan Supervised Injection Intravenous Supervised Injection Intravenous [id number] RIKKI FORREST [facility] Puncture Aspiration Of Bulla Puncture Aspiration Of Bulla 92285 [id number] JASON GUSTAFSON [facility] Tdap Vaccine Tdap Vaccine 10400 HALIMA ANDERSON Immunization Administration Each Additional Vaccine HALIMA ANDERSON Skin Test Anergy Tuberculin Intradermal Skin Test Anergy Tuberculin Intradermal 22047 HALIMA ANDERSON [facility] Immunization Administration One Vaccine Immunization Administration One Vaccine [address]Supervised Group Educational Services EML IRVIN Dr. Services Analysis Of Computerized Data Special Tan Services Analysis Of Computerized Data [id number] ALBAROMEL [facility] Testing Audiometry Group Testing [id number] ALBAROMEL [facility] [facility]ia Threshold Audiogram (Pure Tone) Threshold Audiogram (Pure Tone) 94453 [id number] ALBAROMAMADOUGHADA Tim Claudia Ophthalmological Prior Patient Start Intermediate Level Care Ophthalmological Prior Patient Start Intermediate Level Care [id number] MAMADOU SABA Determination Of Refractive State Determination Of Refractive State 76412 006 MAMADOU SABA Ophthalmological New Patient Start Intermediate Level Care Ophthalmological New Patient Start Intermediate Level Care [id number] MAMADOU SABA Determination Of Refractive State Determination Of Refractive State 23489 006 MAMADOU SABA Screening Test Of Visual Acuity, Quantitative, Bilateral Screening Test Of Visual Acuity, Quantitative, Bilateral 87348 006 MARYBETH GARCIA Training And Self-Care Skills Training And Self-Care Skills [id number] 006 MARYBETH GARCIA Ophthalmological New Patient Start Comprehensive Care Ophthalmological New Patient Start Comprehensive Care [id number] 006 MAMADOU SABA Determination Of Refractive State Determination Of Refractive State 39762 006 MAMADOU SABA Spectacles Services Fitting Monofocals (Not For Aphakia) Spectacles Services Fitting Monofocals (Not For Aphakia) 02601 006 MAMADOU SABA Determination Of Refractive State Determination Of Refractive State 68336 004 MAMADOU SABA Spectacles Services Fitting Monofocals (Not For Aphakia) Spectacles Services Fitting Monofocals (Not For Aphakia) 83919 004 MAMADOU SABA Ophthalmological New Patient Start Intermediate Level Care Ophthalmological New Patient Start Intermediate Level Care [id number] 004 MAMADOU SABA Ear Protector Attenuation Measurements Ear Protector Attenuation Measurements 66304 004 GRUPO CAI Screening Test Of Visual Acuity, Quantitative, Bilateral Screening Test Of Visual Acuity, Quantitative, Bilateral 45536 004 GRUPO CAI Threshold Audiogram (Pure Tone) Threshold Audiogram (Pure Tone) [id number] 004 AYALA GRUPO Deepti [facility] Social History Combined list of available smoking, tobacco, and other social history from 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 Social History Type Response Date Comment Sourc e Tobacco smoking status NHIS VA-TOBACCO NEVER USED 01/13/2023 [facility] History of tobacco use VA-TOBACCO NEVER USED 12/23/2021 [facility] History of tobacco use VA-TOBACCO NEVER USED 12/24/2020 [facility] History of tobacco use VA-TOBACCO NEVER USED 12/20/2019 [facility] History of tobacco use VA-TOBACCO NEVER USED 11/13/2018 [facility] History of tobacco use V9 LIFETIME NON-USER OF TOBACCO 12/07/2017 [facility]ENN[facility] R[facility]RIGUE[facility] History of tobacco use V9 LIFETIME NON-TOBACCO USER 11/28/2013 [facility] History of tobacco use V9 LIFETIME NON-TOBACCO USER 10/07/2009 [facility] History of tobacco use V9 LIFETIME NON-TOBACCO USER 07/05/2007 [facility] History of tobacco use V9 LIFETIME NON-TOBACCO USER 02/07/2007 [facility] History of tobacco use V9 LIFETIME NON-TOBACCO USER 01/13/2006 [facility] Tobacco Cigarette use: Never-cigarette user. Other Tobacco use: Never-other tobacco user (not cigarettes). [facility] Sexual Orientation [facility] Gender identity [facility] Sex Representation Male (finding) Un known Organization This section is an empty social history section. [facility] Assessment and Plan Combined list of future care activities from Department of Defense and Veterans Affairs facilities (e.g., assessment and plan notes, appointments, orders, and referrals). Additional future care activities may be listed in the Plan of Care section. Result Assessment and Plan Date Source Assessment and Plan Extracted from:Title : FTR - back pain Author: BINU LIN DC Date: 11/02/24 D iagnosis: 1 . S ryne stenosis, lumbar region without neurogenic claudication Comment: Ordered: Manual Therapy Tqs 1/> Regions Each 15 Minutes [id number]; 11/02/2024 13:23:00 CDT, 59, Spinal stenosis, lumbar region without neurogenic claudication Radiculopathy, lumbar region Pain in left hip Segmental and somatic dysfunction of lumbar region ? Chiropractic Manipulative Tx Spinal 3-4 Regions [id number]; 11/02/2024 13:23:00 CDT, Spinal stenosis, lumbar region without neurogenic claudication Radiculopathy, lumbar region Pain in left hip Segmental and somatic dysfunction of lumbar region Segmental and somatic dysfunction of thoracic region Seg... D iagnosis: 2 . R adiculopathy, lumbar region Comment: Ordered: Manual Therapy Tqs 1/> Regions Each 15 Minutes [id number]; 11/02/2024 13:23:00 CDT, 59, Spinal stenosis, lumbar region without neurogenic claudication Radiculopathy, lumbar region Pain in left hip Segmental and somatic dysfunction of lumbar region ? Chiropractic Manipulative Tx Spinal 3-4 Regions [id number]; 11/02/2024 13:23:00 CDT, Spinal stenosis, lumbar region without neurogenic claudication Radiculopathy, lumbar region Pain in left hip Segmental and somatic dysfunction of lumbar region Segmental and somatic dysfunction of thoracic region Seg... D iagnosis: 3 . P ain in left hip Comment: Ordered: Manual Therapy Tqs 1/> Regions Each 15 Minutes [id number]; 11/02/2024 13:23:00 CDT, 59, Spinal stenosis, lumbar region without neurogenic claudication Radiculopathy, lumbar region Pain in left hip Segmental and somatic dysfunction of lumbar region ? Chiropractic Manipulative Tx Spinal 3-4 Regions [id number]; 11/02/2024 13:23:00 CDT, Spinal stenosis, lumbar region without neurogenic claudication Radiculopathy, lumbar region Pain in left hip Segmental and somatic dysfunction of lumbar region Segmental and somatic dysfunction of thoracic region Seg... D iagnosis: 4 . S egmental and somatic dysfunction of lumbar region Comment: Ordered: Manual Therapy Tqs 1/> Regions Each 15 Minutes [id number]; 11/02/2024 13:23:00 CDT, 59, Spinal stenosis, lumbar region without neurogenic claudication Radiculopathy, lumbar region Pain in left hip Segmental and somatic dysfunction of lumbar region ? Chiropractic Manipulative Tx Spinal 3-4 Regions [id number]; 11/02/2024 13:23:00 CDT, Spinal stenosis, lumbar region without neurogenic claudication Radiculopathy, lumbar region Pain in left hip Segmental and somatic dysfunction of lumbar region Segmental and somatic dysfunction of thoracic region Seg... D iagnosis: 5 . S egmental and somatic dysfunction of thoracic region Comment: Ordered: Chiropractic Manipulative Tx Spinal 3-4 Regions [id number]; 11/02/2024 13:23:00 CDT, Spinal stenosis, lumbar region without neurogenic claudication Radiculopathy, lumbar region Pain in left hip Segmental and somatic dysfunction of lumbar region Segmental and somatic dysfunction of thoracic region Seg... D iagnosis: 6 . S egmental and somatic dysfunction of cervical region Comment: Ordered: Chiropractic Manipulative Tx Spinal 3-4 Regions [id number]; 11/02/2024 13:23:00 CDT, Spinal stenosis, lumbar region without neurogenic [...] arked by d ecreased intensity of pain i ncreased ROM d ecreased muscular hypertonicity s /p chiropractic treatment. Physician Signature //SIGNED// Dr. Binu Lin DC, [facility] Chiropractic Physician [address] [employer] Natalie Mayers [facility] Main Line DSN/Comm: [phone] / [phone] 11/02/24 13:22:10 Extracted from:Title: [facility] Author: LORRAINE NAQVI PA Date: 11/01/24 1. D ifficulty hearing *Virtual Appt: C onfirmed full name and before discussion* 48 Years o ld M r eports difficulty hearing x 2 months. Reports tinnitus. - Audiology referral placed - F/u o nce audiogram completed or sooner if needed Ordered: Referral Request 2.0 - DoD Medications reconciled. Pt verbalized understanding and agreement. LORRAINE NAQVI, 1st Lt, PAAyo [facility] [place] [address] Extracted from:Title: FTR - back pain Author: BINU LIN DC Date: 10/26/24 D iagnosis: 1 . R adiculopathy, lumbar region Comment: Ordered: Manual Therapy Tqs 1/> Regions Each 15 Minutes [id number]; 10/26/2024 15:27:00 CDT, 59, Radiculopathy, lumbar region Spinal stenosis, lumbar region without neurogenic claudication Pain in left hip Segmental and somatic dysfunction of lumbar region ? Chiropractic Manipulative Tx Spinal 3-4 Regions [id number]; 10/26/2024 15:27:00 CDT, Radiculopathy, lumbar region Spinal stenosis, lumbar region without neurogenic claudication Pain in left hip Segmental and somatic dysfunction of lumbar region Segmental and somatic dysfunction of thoracic region Seg... D iagnosis: 2 . S ryne stenosis, lumbar region without neurogenic claudication Comment: Ordered: Manual Therapy Tqs 1/> Regions Each 15 Minutes [id number]; 10/26/2024 15:27:00 CDT, 59, Radiculopathy, lumbar region Spinal stenosis, lumbar region without neurogenic claudication Pain in left hip Segmental and somatic dysfunction of lumbar region ? Chiropractic Manipulative Tx Spinal 3-4 Regions [id number]; 10/26/2024 15:27:00 CDT, Radiculopathy, lumbar region Spinal stenosis, lumbar region without neurogenic claudication Pain in left hip Segmental and somatic dysfunction of lumbar region Segmental and somatic dysfunction of thoracic region Seg... D iagnosis: 3 . P ain in left hip Comment: Ordered: Manual Therapy Tqs 1/> Regions Each 15 Minutes [id number]; 10/26/2024 15:27:00 CDT, 59, Radiculopathy, lumbar region Spinal stenosis, lumbar region without neurogenic claudication Pain in left hip Segmental and somatic dysfunction of lumbar region ? Chiropractic Manipulative Tx Spinal 3-4 Regions [id number]; 10/26/2024 15:27:00 CDT, Radiculopathy, lumbar region Spinal stenosis, lumbar region without neurogenic claudication Pain in left hip Segmental and somatic dysfunction of lumbar region Segmental and somatic dysfunction of thoracic region Seg... D iagnosis: 4 . S egmental and somatic dysfunction of lumbar region Comment: Ordered: Manual Therapy Tqs 1/> Regions Each 15 Minutes [id number]; 10/26/2024 15:27:00 CDT, 59, Radiculopathy, lumbar region Spinal stenosis, lumbar region without neurogenic claudication Pain in left hip Segmental and somatic dysfunction of lumbar region ? Chiropractic Manipulative Tx Spinal 3-4 Regions [id number]; 10/26/2024 15:27:00 CDT, Radiculopathy, lumbar region Spinal stenosis, lumbar region without neurogenic claudication Pain in left hip Segmental and somatic dysfunction of lumbar region Segmental and somatic dysfunction of thoracic region Seg... D iagnosis: 5 . S egmental and somatic dysfunction of thoracic region Comment: Ordered: Chiropractic Manipulative Tx Spinal 3-4 Regions [id number]; 10/26/2024 15:27:00 CDT, Radiculopathy, lumbar region Spinal stenosis, lumbar region without neurogenic claudication Pain in left hip Segmental and somatic dysfunction of lumbar region Segmental and somatic dysfunction of thoracic region Seg... D iagnosis: 6 . S egmental and somatic dysfunction of cervical region Comment: Ordered: Chiropractic Manipulative Tx Spinal 3-4 Regions [id number]; 10/26/2024 15:27:00 CDT, Radiculopathy, lumbar region Spinal stenosis, lumbar [...] arked by d ecreased intensity of pain i ncreased ROM d ecreased muscular hypertonicity s /p chiropractic treatment. Physician Signature //SIGNED// Dr. Binu Lin, CARL, [facility] Chiropractic Physician [facility] [employer] Main Line DSN/Comm: [phone] / [phone] 10/26/24 15:25:29 Extracted from:Title: BEH Therapist OP Follow Up Note Author: TANA LIN, PhD, Psychology Date: 10/17/24 48 y/o , , male, [place] assigned to 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 with symptoms consistent with depression including depressed mood, anhedonia, sleep changes, fatigue/low energy, concentration difficulties, and sense of worthlessness present with chronic pain associated with never oblation in his back for past 3 years. Pt also reports excessive worry that is difficult to control, increased irritability, and muscle tension. Pt's symptoms reportedly negatively impact performance at work and are noticeable by coworkers and by family. Pt has h as past history and diagnosis of PTSD from deployment-related and childhood trauma both of which p t has received trauma-directed treatment in [id number] and reportedly symptoms are currently more manageable on a daily basis than d epressive symptoms. Pt's brother is retired and has reportedly been diagnosed with b ipolar, PTSD, s ubstance abuse, TBI, and has attempted suicide. Pt's mother also reportedly struggles with anxiety. Pt's symptoms appear to be best described by Major Depressive Disorder with anxious distress with history of PTSD. Pt is reportedly undergoing a medical board process for t he nerve oblation and is requesting t reatment in order to better manage s ymptoms of depression and anxiety. Pt amenable to both CBT group (to begin 18-Sep-24) and individual therapy. ? Consulted with Dr. Liu regarding pt beginning CBT group on 18-Sep-24 versus 11-Sep-24 and next follow-up individual a ppointment scheduled for 04-Oct-24. [3] [4] 1. M franklin depressive disorder, single episode, mild Prognosis: Fair Benefits, Risks, Alternatives Discussed: Yes Treatment Plan: Practice good sleep hygiene, Referral to individual, family or group therapy Number of Visits Expected: 9-12 Target Symptoms: Anxiety, Depression, Trauma Goals of Treatment: Improve overall functioning, Decrease in target symptoms Methods of Monitoring Outcomes: Reduced KRZYSZTOF-7 score, Reduced PCL-5 score, Reduced PHQ-9 score Evaluation Type: By complexity Treatment Planning Requirements: 1) Developed treatment plan collaboratively with patient, with agreement on plan of care and goals, 2) Patient agrees to attend appointments, engage in treatment, discuss any concerns in order to meet treatment goals, 3) Provider will leverage patient strengths and limit potential barriers to treatment Extracted from:Title: FTR - back pain Author: BINU LIN DC Date: 10/09/24 D iagnosis: 1 . R adiculopathy, lumbar region Comment: Ordered: Manual Therapy Tqs 1/> Regions Each 15 Minutes [id number]; 10/09/2024 13:28:00 CDT, 59, Radiculopathy, lumbar region Spinal stenosis, lumbar region without neurogenic claudication Segmental and somatic dysfunction of sacral region Segmental and somatic dysfunction of lumbar region D iagnosis: 2 . S ryne stenosis, lumbar region without neurogenic claudication Comment: Ordered: Manual Therapy Tqs 1/> Regions Each 15 Minutes [id number]; 10/09/2024 13:28:00 CDT, 59, Radiculopathy, lumbar region Spinal stenosis, lumbar region without neurogenic claudication Segmental and somatic dysfunction of sacral region Segmental and somatic dysfunction of lumbar region ? Chiropractic Manipulative Tx Spinal 3-4 Regions [id number]; 10/09/2024 13:28:00 CDT, Spinal stenosis, lumbar region without neurogenic claudication Segmental and somatic dysfunction of sacral region Segmental and somatic dysfunction of thoracic region Segmental and somatic dysfunction of lumbar region D iagnosis: 3 . P ain in left hip Comment: Ordered: Chiropractic Manipulative Therapy, Extraspinal [id number]; 10/09/2024 13:28:00 CDT, Pain in left hip D iagnosis: 4 . S egmental and somatic dysfunction of lumbar region Comment: Ordered: Manual Therapy Tqs 1/> Regions Each 15 Minutes [id number]; 10/09/2024 13:28:00 CDT, 59, Radiculopathy, lumbar region Spinal stenosis, lumbar region without neurogenic claudication Segmental and somatic dysfunction of sacral region Segmental and somatic dysfunction of lumbar region ? Chiropractic Manipulative Tx Spinal 3-4 Regions [id number]; 10/09/2024 13:28:00 CDT, Spinal stenosis, lumbar region without neurogenic claudication Segmental and somatic dysfunction of sacral region Segmental and somatic dysfunction of thoracic region Segmental and somatic dysfunction of lumbar region D iagnosis: 5 . S egmental and somatic dysfunction of thoracic region Comment: Ordered: Chiropractic Manipulative Tx Spinal 3-4 Regions [id number]; 10/09/2024 13:28:00 CDT, Spinal stenosis, lumbar region without neurogenic claudication Segmental and somatic dysfunction of sacral region Segmental and somatic dysfunction of thoracic region Segmental and somatic dysfunction of lumbar region D iagnosis: 6 . S egmental and somatic dysfunction of sacral region Comment: Ordered: Manual Therapy Tqs 1/> Regions Each 15 Minutes [id number]; 10/09/2024 13:28:00 CDT, 59, Radiculopathy, lumbar region Spinal stenosis, lumbar region without neurogenic claudication Segmental and somatic dysfunction of sacral region Segmental and somatic dysfunction of lumbar region ? Chiropractic Manipulative Tx Spinal 3-4 Regions [id number]; 10/09/2024 13:28:00 CDT, Spinal stenosis, lumbar region without neurogenic claudication Segmental and somatic dysfunction of sacral region Segmental and somatic dysfunction of thoracic region Segmental and somatic dysfunction of lumbar region End of Orders Chiropractic Treatment Chiropractic [...] arked by d ecreased intensity of pain i ncreased ROM d ecreased muscular hypertonicity s /p chiropractic treatment. Physician Signature //SIGNED// Dr. Binu Lin DC, [facility] Chiropractic Physician [facility] [place] [place] [facility] Main Line DSN/Comm: [phone] / [phone] 10/09/24 13:00:52 Extracted from:Title: BEH Therapist OP Follow Up Note Author: TANA LIN, PhD, Psychology Date: 10/04/24 48 y/o , , [place], [place] assigned to [employer] and working as [employer] self-referred to [facility] with symptoms consistent with depression including depressed mood, anhedonia, sleep changes, fatigue/low energy, concentration difficulties, and sense of worthlessness present with chronic pain associated with never oblation in his back for past 3 years. Pt also reports excessive worry that is difficult to control, increased irritability, and muscle tension. Pt's symptoms reportedly negatively impact performance at work and are noticeable by coworkers and by family. Pt has h as past history and diagnosis of PTSD from deployment-related and childhood trauma both of which p t has received trauma-directed treatment in [id number] and reportedly symptoms are currently more manageable on a daily basis than d epressive symptoms. Pt's brother is retired and has reportedly been diagnosed with b ipolar, PTSD, s ubstance abuse, TBI, and has attempted suicide. Pt's mother also reportedly struggles with anxiety. Pt's symptoms appear to be best described by Major Depressive Disorder with anxious distress with history of PTSD. Pt is reportedly undergoing a medical board process for t he nerve oblation and is requesting t reatment in order to better manage s ymptoms of depression and anxiety. Pt amenable to both CBT group (to begin 18-Sep-24) and individual therapy. ? Consulted with Dr. Liu regarding pt beginning CBT group on 18-Sep-24 versus 11-Sep-24 and next follow-up individual a ppointment scheduled for 04-Oct-24. [3] 1. M ajor depressive disorder, single episode, mild with anxious distress -History of PTSD Prognosis: Fair Benefits, Risks, Alternatives Discussed: Yes Treatment Plan: Practice good sleep hygiene, Referral to individual, family or group therapy Number of Visits Expected: 9-12 Target Symptoms: Anxiety, Depression, Trauma Goals of Treatment: Improve overall functioning, Decrease in target symptoms Methods of Monitoring Outcomes: Reduced KRZYSZTOF-7 score, Reduced PCL-5 score, Reduced PHQ-9 score Evaluation Type: By complexity Treatment Planning Requirements: 1) Developed treatment plan collaboratively with patient, with agreement on plan of care and goals, 2) Patient agrees to attend appointments, engage in treatment, discuss any concerns in order to meet treatment goals, 3) Provider will leverage patient strengths and limit potential barriers to treatment Extracted from:Title: FTR - low back and hip pain Author: BINU LIN DC Date: 09/25/24 D iagnosis: 1 . R adiculopathy, lumbar region Comment: Ordered: Manual Therapy Tqs 1/> Regions Each 15 Minutes [id number]; 09/25/2024 13:52:00 CDT, 59, Radiculopathy, lumbar region Spinal stenosis, lumbar region without neurogenic claudication Segmental and somatic dysfunction of sacral region Segmental and somatic dysfunction of lumbar region ? Chiropractic Manipulative Tx Spinal 3-4 Regions [id number]; 09/25/2024 13:52:00 CDT, Radiculopathy, lumbar region Spinal stenosis, lumbar region without neurogenic claudication Segmental and somatic dysfunction of sacral region Segmental and somatic dysfunction of lumbar region Segmental and somatic dy... D iagnosis: 2 . S ryne stenosis, lumbar region without neurogenic claudication Comment: Ordered: Manual Therapy Tqs 1/> Regions Each 15 Minutes [id number]; 09/25/2024 13:52:00 CDT, 59, Radiculopathy, lumbar region Spinal stenosis, lumbar region without neurogenic claudication Segmental and somatic dysfunction of sacral region Segmental and somatic dysfunction of lumbar region ? Chiropractic Manipulative Tx Spinal 3-4 Regions [id number]; 09/25/2024 13:52:00 CDT, Radiculopathy, lumbar region Spinal stenosis, lumbar region without neurogenic claudication Segmental and somatic dysfunction of sacral region Segmental and somatic dysfunction of lumbar region Segmental and somatic dy... D iagnosis: 3 . S egmental and somatic dysfunction of sacral region Comment: Ordered: Manual Therapy Tqs 1/> Regions Each 15 Minutes [id number]; 09/25/2024 13:52:00 CDT, 59, Radiculopathy, lumbar region Spinal stenosis, lumbar region without neurogenic claudication Segmental and somatic dysfunction of sacral region Segmental and somatic dysfunction of lumbar region ? Chiropractic Manipulative Tx Spinal 3-4 Regions [id number]; 09/25/2024 13:52:00 CDT, Radiculopathy, lumbar region Spinal stenosis, lumbar region without neurogenic claudication Segmental and somatic dysfunction of sacral region Segmental and somatic dysfunction of lumbar region Segmental and somatic dy... D iagnosis: 4 . S egmental and somatic dysfunction of lumbar region Comment: Ordered: Manual Therapy Tqs 1/> Regions Each 15 Minutes [id number]; 09/25/2024 13:52:00 CDT, 59, Radiculopathy, lumbar region Spinal stenosis, lumbar region without neurogenic claudication Segmental and somatic dysfunction of sacral region Segmental and somatic dysfunction of lumbar region ? Chiropractic Manipulative Tx Spinal 3-4 Regions [id number]; 09/25/2024 13:52:00 CDT, Radiculopathy, lumbar region Spinal stenosis, lumbar region without neurogenic claudication Segmental and somatic dysfunction of sacral region Segmental and somatic dysfunction of lumbar region Segmental and somatic dy... D iagnosis: 5 . S egmental and somatic dysfunction of thoracic region Comment: Ordered: Chiropractic Manipulative Tx Spinal 3-4 Regions [id number]; 09/25/2024 13:52:00 CDT, Radiculopathy, lumbar region Spinal stenosis, lumbar region without neurogenic claudication Segmental and somatic dysfunction of sacral region Segmental and somatic dysfunction of lumbar region Segmental and somatic dy... D iagnosis: 6 . S egmental and somatic dysfunction of cervical region Comment: Ordered: Chiropractic Manipulative Tx Spinal 3-4 Regions [id number]; 09/25/2024 13:52:00 CDT, Radiculopathy, lumbar region Spinal stenosis, lumbar region without neurogenic claudication Segmental and somatic dysfunction of sacral region Segmental and somatic dysfunction of lumbar region Segmental and somatic dy... End of Orders Chiropractic Treatment Chiropractic Diversified [...] arked by d ecreased intensity of pain i ncreased ROM d ecreased muscular hypertonicity s /p chiropractic treatment. Physician Signature //SIGNED// Dr. Binu Lin DC, [facility] Chiropractic Physician 375 [employer] Medical Readiness Natalie Mayers [facility] Main Line DSN/Comm: [phone] / [phone] 09/25/24 13:52:13 Extracted from:Title: FTR - Low back pain Author: BINU LIN DC Date: 09/12/24 D iagnosis: 1 . S ryne stenosis, lumbar region without neurogenic claudication Comment: Ordered: Manual Therapy Tqs 1/> Regions Each 15 Minutes [id number]; 09/12/2024 13:37:00 CDT, 59, Radiculopathy, lumbar region Spinal stenosis, lumbar region without neurogenic claudication Segmental and somatic dysfunction of sacral region Segmental and somatic dysfunction of lumbar region ? Chiropractic Manipulative Tx Spinal 3-4 Regions [id number]; 09/12/2024 13:37:00 CDT, Radiculopathy, lumbar region Spinal stenosis, lumbar region without neurogenic claudication Segmental and somatic dysfunction of sacral region Segmental and somatic dysfunction of lumbar region Segmental and somatic dy... D iagnosis: 2 . S egmental and somatic dysfunction of sacral region Comment: Ordered: Manual Therapy Tqs 1/> Regions Each 15 Minutes [id number]; 09/12/2024 13:37:00 CDT, 59, Radiculopathy, lumbar region Spinal stenosis, lumbar region without neurogenic claudication Segmental and somatic dysfunction of sacral region Segmental and somatic dysfunction of lumbar region ? Chiropractic Manipulative Tx Spinal 3-4 Regions [id number]; 09/12/2024 13:37:00 CDT, Radiculopathy, lumbar region Spinal stenosis, lumbar region without neurogenic claudication Segmental and somatic dysfunction of sacral region Segmental and somatic dysfunction of lumbar region Segmental and somatic dy... D iagnosis: 3 . S egmental and somatic dysfunction of lumbar region Comment: Ordered: Manual Therapy Tqs 1/> Regions Each 15 Minutes [id number]; 09/12/2024 13:37:00 CDT, 59, Radiculopathy, lumbar region Spinal stenosis, lumbar region without neurogenic claudication Segmental and somatic dysfunction of sacral region Segmental and somatic dysfunction of lumbar region ? Chiropractic Manipulative Tx Spinal 3-4 Regions [id number]; 09/12/2024 13:37:00 CDT, Radiculopathy, lumbar region Spinal stenosis, lumbar region without neurogenic claudication Segmental and somatic dysfunction of sacral region Segmental and somatic dysfunction of lumbar region Segmental and somatic dy... D iagnosis: 4 . S egmental and somatic dysfunction of thoracic region Comment: Ordered: Chiropractic Manipulative Tx Spinal 3-4 Regions [id number]; 09/12/2024 13:37:00 CDT, Radiculopathy, lumbar region Spinal stenosis, lumbar region without neurogenic claudication Segmental and somatic dysfunction of sacral region Segmental and somatic dysfunction of lumbar region Segmental and somatic dy... D iagnosis: 5 . R adiculopathy, lumbar region Comment: Ordered: Manual Therapy Tqs 1/> Regions Each 15 Minutes [id number]; 09/12/2024 13:37:00 CDT, 59, Radiculopathy, lumbar region Spinal stenosis, lumbar region without neurogenic claudication Segmental and somatic dysfunction of sacral region Segmental and somatic dysfunction of lumbar region ? Chiropractic Manipulative Tx Spinal 3-4 Regions [id number]; 09/12/2024 13:37:00 CDT, Radiculopathy, lumbar region Spinal stenosis, lumbar region without neurogenic claudication Segmental and somatic dysfunction of sacral region Segmental and somatic dysfunction of lumbar region Segmental and somatic dy... D iagnosis: S egmental and somatic dysfunction of cervical region Comment: Ordered: Chiropractic Manipulative Tx Spinal 3-4 Regions [id number]; 09/12/2024 13:37:00 CDT, Radiculopathy, lumbar region Spinal stenosis, lumbar region without neurogenic claudication Segmental and somatic dysfunction of sacral region Segmental and somatic dysfunction of lumbar region Segmental and somatic dy... End of Orders Chiropractic Treatment Chiropractic Diversified Adjustments S upine to C/S P safia T/S, S jose posture to Ilium, SI and L/S A T Performed attended, prone, Ray Flexion/Distraction (12min) to L/S, Protocol II, -59 Distinct separate procedure Therapeutic Modalities None Exercises Continue exercises as prescribed in treatment plan. Final Disposition Patient responded w ell to care m jaked by d ecreased intensity of pain i ncreased ROM _ ? s /p chiropractic treatment. Physician Signature //SIGNED// Dr. Binu Lin DC, [facility] Chiropractic Physician [facility] Main Line DSN/Comm: [id number] / [phone] 09/12/24 13:30:18 Extracted from:Title: BEH Therapist OP Initial Visit Note Author: TANA LIN, PhD, Psychology Date: 09/10/24 48 y/o , , male, [place] assigned to [employer] 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 with symptoms consistent with depression including depressed mood, anhedonia, sleep changes, fatigue/low energy, concentration difficulties, and sense of worthlessness present with chronic pain associated with never oblation in his back for past 3 years. Pt also reports excessive worry that is difficult to control, increased irritability, and muscle tension. Pt's symptoms reportedly negatively impact performance at work and are noticeable by coworkers and by family. Pt has h as past history and diagnosis of PTSD from deployment-related and childhood trauma both of which p t has received trauma-directed treatment in [id number] and reportedly symptoms are currently more manageable on a daily basis than d epressive symptoms. Pt's brother is retired and has reportedly been diagnosed with b ipolar, PTSD, s ubstance abuse, TBI, and has attempted suicide. Pt's mother also reportedly struggles with anxiety. Pt's symptoms appear to be best described by Major Depressive Disorder with anxious distress with history of PTSD. Pt is reportedly undergoing a medical board process for t he nerve oblation and is requesting t reatment in order to better manage s ymptoms of depression and anxiety. Pt amenable to both CBT group (to begin 18-Sep-24) and individual therapy. ? Consulted with Dr. Liu regarding pt beginning CBT group on 18-Sep-24 versus 11-Sep-24 and next follow-up individual a ppointment scheduled for 04-Oct-24. 1. M ajor depressive disorder, single episode, mild with anxious distress -History of PTSD Prognosis: Fair Benefits, Risks, Alternatives Discussed: Yes Treatment Plan: Practice good sleep hygiene, Referral to individual, family or group therapy Number of Visits Expected: 9-12 Target Symptoms: Anxiety, Depression, Trauma Goals of Treatment: Improve overall functioning, Decrease in target symptoms Methods of Monitoring Outcomes: Reduced KRZYSZTOF-7 score, Reduced PCL-5 score, Reduced PHQ-9 score Evaluation Type: By complexity Treatment Planning Requirements: 1) Developed treatment plan collaboratively with patient, with agreement on plan of care and goals, 2) Patient agrees to attend appointments, engage in treatment, discuss any concerns in order to meet treatment goals, 3) Provider will leverage patient strengths and limit potential barriers to treatment Extracted from:Title: FTR - Low back pain Author: BINU LIN DC Date: 09/05/24 D iagnosis: 1 . S ryne stenosis, lumbar region without neurogenic claudication Comment: Ordered: Manual Therapy Tqs 1/> Regions Each 15 Minutes [id number]; 09/05/2024 11:53:00 CDT, 59, Spinal stenosis, lumbar region without neurogenic claudication Radiculopathy, lumbar region Pain in left hip Segmental and somatic dysfunction of sacral region Segmental and somatic dysfunction of lumbar region ? Chiropractic Manipulative Tx Spinal 3-4 Regions [id number]; 09/05/2024 11:53:00 CDT, Spinal stenosis, lumbar region without neurogenic claudication Radiculopathy, lumbar region Pain in left hip Segmental and somatic dysfunction of sacral region Segmental and somatic dysfunction of lumbar region Segme... D iagnosis: 2 . R adiculopathy, lumbar region Comment: Ordered: Manual Therapy Tqs 1/> Regions Each 15 Minutes [id number]; 09/05/2024 11:53:00 CDT, 59, Spinal stenosis, lumbar region without neurogenic claudication Radiculopathy, lumbar region Pain in left hip Segmental and somatic dysfunction of sacral region Segmental and somatic dysfunction of lumbar region ? Chiropractic Manipulative Tx Spinal 3-4 Regions [id number]; 09/05/2024 11:53:00 CDT, Spinal stenosis, lumbar region without neurogenic claudication Radiculopathy, lumbar region Pain in left hip Segmental and somatic dysfunction of sacral region Segmental and somatic dysfunction of lumbar region Segme... D iagnosis: 3 . P ain in left hip Comment: Ordered: Manual Therapy Tqs 1/> Regions Each 15 Minutes [id number]; 09/05/2024 11:53:00 CDT, 59, Spinal stenosis, lumbar region without neurogenic claudication Radiculopathy, lumbar region Pain in left hip Segmental and somatic dysfunction of sacral region Segmental and somatic dysfunction of lumbar region ? Chiropractic Manipulative Tx Spinal 3-4 Regions [id number]; 09/05/2024 11:53:00 CDT, Spinal stenosis, lumbar region without neurogenic claudication Radiculopathy, lumbar region Pain in left hip Segmental and somatic dysfunction of sacral region Segmental and somatic dysfunction of lumbar region Segme... D iagnosis: 4 . S egmental and somatic dysfunction of sacral region Comment: Ordered: Manual Therapy Tqs 1/> Regions Each 15 Minutes [id number]; 09/05/2024 11:53:00 CDT, 59, Spinal stenosis, lumbar region without neurogenic claudication Radiculopathy, lumbar region Pain in left hip Segmental and somatic dysfunction of sacral region Segmental and somatic dysfunction of lumbar region ? Chiropractic Manipulative Tx Spinal 3-4 Regions [id number]; 09/05/2024 11:53:00 CDT, Spinal stenosis, lumbar region without neurogenic claudication Radiculopathy, lumbar region Pain in left hip Segmental and somatic dysfunction of sacral region Segmental and somatic dysfunction of lumbar region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 syndrome 5. C rohn disease Extracted from:Title: [facility]- Neck and anal pain Author: ANDREW PAVON MD Date: 07/31/24 1. A [facility] fissure - [employer] profile provided - GI referral for 2nd opinion - Discussed gen surg referral but patient wants to try Botox injections before surgery Ordered: Referral Request 2.0 - DoD 2. C hronic neck pain No fevers, chills, h eadaches, dizziness, lightheadedness, vision or hearing changes, n umbness, tingling, weakness, incontinence. No night sweats, u nintentional weight loss. Refractory to PT and injections. Never been imaged before. - CT cervical and thoracic spine Ordered: XR Spine Cervical 4 or 5 Views XR Spine Thoracic 4+ Views Patient understood, relayed back, and agreed with the plan. Patient aware to call 911 or go to the nearest emergency room/urgent care for any urgent/emergent concerns or call and leave message with the clinic for any other concerns. Patient can also access [employer] at [email or web address] to leave message with PCM Team. A total of 20 minutes was spent on this visit reviewing previous records, counseling the patient on the listed diagnoses, reviewing/ordering tests, adjusting medications, and/or documenting the findings in this note. //SIGNED// Capt Andrew Pavon DO Heating Repair Technician Physician, PGY-2 [facility], HCOS/SGGF [facility] Talib KEYS This note was dictated using [employer] dictation software. While it was proofread for errors, there may still be grammatical and dictation errors. Extracted from:Title: FTR - Low back pain Author: BINU LIN DC Date: 07/27/24 D iagnosis: 1 . R adiculopathy, lumbar region Comment: Ordered: Manual Therapy Tqs 1/> Regions Each 15 Minutes [id number]; 07/27/2024 09:32:00 CDT, 59, Radiculopathy, lumbar region Spinal stenosis, lumbar region without neurogenic claudication Segmental and somatic dysfunction of lumbar region ? Chiropractic Manipulative Tx Spinal 3-4 Regions [id number]; 07/27/2024 09:32:00 CDT, Radiculopathy, lumbar region Spinal stenosis, lumbar region without neurogenic claudication Segmental and somatic dysfunction of lumbar region Segmental and somatic dysfunction of thoracic region Segmental and somatic... D iagnosis: 2 . S ryne stenosis, lumbar region without neurogenic claudication Comment: Ordered: Manual Therapy Tqs 1/> Regions Each 15 Minutes [id number]; 07/27/2024 09:32:00 CDT, 59, Radiculopathy, lumbar region Spinal stenosis, lumbar region without neurogenic claudication Segmental and somatic dysfunction of lumbar region ? Chiropractic Manipulative Tx Spinal 3-4 Regions [id number]; 07/27/2024 09:32:00 CDT, Radiculopathy, lumbar region Spinal stenosis, lumbar region without neurogenic claudication Segmental and somatic dysfunction of lumbar region Segmental and somatic dysfunction of thoracic region Segmental and somatic... D iagnosis: 3 . S egmental and somatic dysfunction of lumbar region Comment: Ordered: Manual Therapy Tqs 1/> Regions Each 15 Minutes [id number]; 07/27/2024 09:32:00 CDT, 59, Radiculopathy, lumbar region Spinal stenosis, lumbar region without neurogenic claudication Segmental and somatic dysfunction of lumbar region ? Chiropractic Manipulative Tx Spinal 3-4 Regions [id number]; 07/27/2024 09:32:00 CDT, Radiculopathy, lumbar region Spinal stenosis, lumbar region without neurogenic claudication Segmental and somatic dysfunction of lumbar region Segmental and somatic dysfunction of thoracic region Segmental and somatic... D iagnosis: 4 . S egmental and somatic dysfunction of thoracic region Comment: Ordered: Chiropractic Manipulative Tx Spinal 3-4 Regions [id number]; 07/27/2024 09:32:00 CDT, Radiculopathy, lumbar region Spinal stenosis, lumbar region without neurogenic claudication Segmental and somatic dysfunction of lumbar region Segmental and somatic dysfunction of thoracic region Segmental and somatic... D iagnosis: 5 . S egmental and somatic dysfunction of cervical region Comment: Ordered: Chiropractic Manipulative Tx Spinal 3-4 Regions [id number]; 07/27/2024 09:32:00 CDT, Radiculopathy, lumbar region Spinal stenosis, lumbar [...] arked by d ecreased intensity of pain objective ambulation w ith minimal l imp s /p chiropractic treatment. Physician Signature //SIGNED// Dr. Binu Lin, CARL, RMSK Chiropractic Physician 375 Operational Medical Readiness [facility] Talib [facility] Main Line DSN/Comm: [phone] / [phone] 07/27/24 09:39:34 Extracted from:Title: [facility] MARVIN/OME Author: LORRAINE NAQVI PA Date: [...] and agreement. LORRAINE NAQVI E, 1st Lt, PAErwinC [facility] [place] [address] Extracted from:Title: [facility] LBP Author: ERIK VERA, DO Date: 06/01/24 Low back pain Nurse [...] Duration: 5 days, First Dose: 06/01/2024 13:00:00 NURSE WOUND CARE, Stop Date: 06/06/2024 12:59:00 NURSE WOUND CARE, 06/01/2024 12:02:00 NURSE WOUND CARE Orders: ketorolac(Toradol 15 mg/mL injectable solution), 15 mg, IntraMuscular, every 6 hr, # 1 mL, 0 total refill(s), Acute, 06/02/2024, Pharmacy: [facility] [Not filled] Capt Lynn DO, [employer], Family Physician [facility] in [place], [place] [address] [address] Extracted from:Title: [facility] colitis work-up Author: ERIK VERA, DO Date: 03/13/24 Colitis C ontinue with [...] MEB in progress: No IMR/ASIMS Status: [employer] Capt Lynn DO, [employer], Family Physician [facility] in [place], [place] [address] [address] Extracted from:Title: [facility] Sick call - F/u Feb 16 ER visit for colitis Author: FADUMO CASTRO MD Date: 02/21/24 1. 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 Per member GI called him back [...] Feb 17 -dispo pending labs //SIGNED// FADUMO CASTRO, Col, [employer], MC, FS Family Physician, [facility] Talib VALENTINE, [facility] cortez Mckeon DSN/Comm: [phone] / [phone] Extracted from:Title: Routine nondilated exam- MEDPROS Author: [...] 1 drop(s) Eye-Both every 12 hr, Pharmacy: [facility] [Not filled] 2. P resbyopia -New Spectacle rx dispensed today as seen below (Manifest=Final Rx), lens options recommended per pt ADLs MANIFEST REFRACTION: OD: - 0.50-0.51y426. . . . . . 20/15 OS: pl-0.51m329. . . . . . 2 0/15 Near Add: + 1.75 20/20 Computer Rx OD: +0.50-0.69h854 OS: +1.00-0.92f028 - Discussed 2 pair requirement ([facility]). - Glasses ordered in SRTS. F OC [...] completed for patient to take to unit ([facility], etc) to update into their MEDPROS system. RTC first avail for DFE only (ok to dilate at screening), otherwise 1 year Ordered: cycloSPORINE ophthalmic(Restasis 0.05% ophthalmic emulsion), 1 drop(s), Eye-Both, every 12 hr, # 60 EA, 11 total refill(s), Maintenance, 1 drop(s) Eye-Both every 12 hr, Pharmacy: [facility] [Not filled] Diagnosis: 1 . K eratoconjunctivitis sicca Comment: Ordered: Restasis 0.05% ophthalmic emulsion; 1 drop(s), Eye-Both, every 12 hr, # 60 EA, 11 total refill(s), Maintenance, 1 drop(s) Eye-Both every 12 hr, Pharmacy: [facility] [Not filled] ? Ophthalmological Medical Xm&Eval Compre New Pt Vst [id number]; 02/07/2024 14:58:00 CDT ? Fitting Spectacles Xcpt Aphakia Monofocal 52822; 02/07/2024 14:58:00 CDT ? Determination Refractive State [id number]; 02/07/2024 14:58:00 CDT D iagnosis: 2 . P resbyopia Comment: Ordered: Restasis 0.05% ophthalmic emulsion; 1 drop(s), Eye-Both, every 12 hr, # 60 EA, 11 total refill(s), Maintenance, 1 drop(s) Eye-Both every 12 hr, Pharmacy: [facility] [Not filled] ? Ophthalmological Medical Xm&Eval Compre New Pt /> Vst 65071; 02/07/2024 14:58:00 CDT ? Fitting Spectacles Xcpt Aphakia Monofocal [id number]; 02/07/2024 14:58:00 CDT ? Determination Refractive State [id number]; 02/07/2024 14:58:00 CDT End of Orders Extracted from:Title: Acute Optometry Office Visit Note [...] O rdered: Fundus Photography w/Interpretation + Report [id number]; 08/19/2022 08:44:00 EDT ? Ophthalmological Medical [place] [id number]; 08/19/2022 08:44:00 EDT End of Orders Future Appointments Appointment Date: 11/28/2024 01:00:00 PM Scheduled Provider: BINU LIN DC Location: [id number] Appointment Type: CHIRO FTR Appointment Date: 12/04/2024 08:00:00 AM Scheduled Provider: TANA LIN, PhD, Psychology Location: [id number] Appointment Type: FTR Appointment Date: 12/06/2024 12:40:00 PM Scheduled Provider: APRIL SELBY PA, Family Medicine Location: [id number] Appointment Type: ROSARIO FTR Appointment Date: 12/07/2024 03:00:00 PM Scheduled Provider: BINU LIN DC Location: [address] [place] [address] Appointment Type: CHIRO FTR Future Scheduled TestsRadiologyXR Spine Cervical 4 or 5 Views 07/31/24XR Spine Thoracic 4+ Views 07/31/24 11/23/2024 [address] [place], [place] [address]Jolanta Assessment and Plan Extracted from:Title : FTR - back pain Author: BINU LIN DC Date: 11/02/24 D iagnosis: 1 . S ryne stenosis, lumbar region without neurogenic claudication Comment: Ordered: Manual Therapy Tqs 1/> Regions Each 15 Minutes [id number]; 11/02/2024 13:23:00 CDT, 59, Spinal stenosis, lumbar region without neurogenic claudication Radiculopathy, lumbar region Pain in left hip Segmental and somatic dysfunction of lumbar region ? Chiropractic Manipulative Tx Spinal 3-4 Regions [id number]; 11/02/2024 13:23:00 CDT, Spinal stenosis, lumbar region without neurogenic claudication Radiculopathy, lumbar region Pain in left hip Segmental and somatic dysfunction of lumbar region Segmental and somatic dysfunction of thoracic region Seg... D iagnosis: 2 . R adiculopathy, lumbar region Comment: Ordered: Manual Therapy Tqs 1/> Regions Each 15 Minutes [id number]; 11/02/2024 13:23:00 CDT, 59, Spinal stenosis, lumbar region without neurogenic claudication Radiculopathy, lumbar region Pain in left hip Segmental and somatic dysfunction of lumbar region ? Chiropractic Manipulative Tx Spinal 3-4 Regions [id number]; 11/02/2024 13:23:00 CDT, Spinal stenosis, lumbar region without neurogenic claudication Radiculopathy, lumbar region Pain in left hip Segmental and somatic dysfunction of lumbar region Segmental and somatic dysfunction of thoracic region Seg... D iagnosis: 3 . P ain in left hip Comment: Ordered: Manual Therapy Tqs 1/> Regions Each 15 Minutes [id number]; 11/02/2024 13:23:00 CDT, 59, Spinal stenosis, lumbar region without neurogenic claudication Radiculopathy, lumbar region Pain in left hip Segmental and somatic dysfunction of lumbar region ? Chiropractic Manipulative Tx Spinal 3-4 Regions [id number]; 11/02/2024 13:23:00 CDT, Spinal stenosis, lumbar region without neurogenic claudication Radiculopathy, lumbar region Pain in left hip Segmental and somatic dysfunction of lumbar region Segmental and somatic dysfunction of thoracic region Seg... D iagnosis: 4 . S egmental and somatic dysfunction of lumbar region Comment: Ordered: Manual Therapy Tqs 1/> Regions Each 15 Minutes [id number]; 11/02/2024 13:23:00 CDT, 59, Spinal stenosis, lumbar region without neurogenic claudication Radiculopathy, lumbar region Pain in left hip Segmental and somatic dysfunction of lumbar region ? Chiropractic Manipulative Tx Spinal 3-4 Regions [id number]; 11/02/2024 13:23:00 CDT, Spinal stenosis, lumbar region without neurogenic claudication Radiculopathy, lumbar region Pain in left hip Segmental and somatic dysfunction of lumbar region Segmental and somatic dysfunction of thoracic region Seg... D iagnosis: 5 . S egmental and somatic dysfunction of thoracic region Comment: Ordered: Chiropractic Manipulative Tx Spinal 3-4 Regions [id number]; 11/02/2024 13:23:00 CDT, Spinal stenosis, lumbar region without neurogenic claudication Radiculopathy, lumbar region Pain in left hip Segmental and somatic dysfunction of lumbar region Segmental and somatic dysfunction of thoracic region Seg... D iagnosis: 6 . S egmental and somatic dysfunction of cervical region Comment: Ordered: Chiropractic Manipulative Tx Spinal 3-4 Regions [id number]; 11/02/2024 13:23:00 CDT, Spinal stenosis, lumbar region without neurogenic [...] arked by d ecreased intensity of pain i ncreased ROM d ecreased muscular hypertonicity s /p chiropractic treatment. Physician Signature //SIGNED// Dr. Binu Lin DC, RMSK Chiropractic Physician 375 Operational Medical [facility] Main Line DSN/Comm: [phone] / [phone] 11/02/24 13:22:10 Extracted from:Title: [facility] HL Author: LORRAINE NAQVI PA Date: 11/01/24 1. D ifficulty hearing *Virtual Appt: C onfirmed full name and before discussion* 48 Years o ld M r eports difficulty hearing x 2 months. Reports tinnitus. - Audiology referral placed - F/u o nce audiogram completed or sooner if needed Ordered: Referral Request 2.0 - DoD Medications reconciled. Pt verbalized understanding and agreement. LORRAINE NAQVI E, 1st Lt, [place] [address] Extracted from:Title: FTR - back pain Author: BINU LIN DC Date: 10/26/24 D iagnosis: 1 . R adiculopathy, lumbar region Comment: Ordered: Manual Therapy Tqs 1/> Regions Each 15 Minutes [id number]; 10/26/2024 15:27:00 CDT, 59, Radiculopathy, lumbar region Spinal stenosis, lumbar region without neurogenic claudication Pain in left hip Segmental and somatic dysfunction of lumbar region ? Chiropractic Manipulative Tx Spinal 3-4 Regions 40605; 10/26/2024 15:27:00 CDT, Radiculopathy, lumbar region Spinal stenosis, lumbar region without neurogenic claudication Pain in left hip Segmental and somatic dysfunction of lumbar region Segmental and somatic dysfunction of thoracic region Seg... D iagnosis: 2 . S ryne stenosis, lumbar region without neurogenic claudication Comment: Ordered: Manual Therapy Tqs 1/> Regions Each 15 Minutes [id number]; 10/26/2024 15:27:00 CDT, 59, Radiculopathy, lumbar region Spinal stenosis, lumbar region without neurogenic claudication Pain in left hip Segmental and somatic dysfunction of lumbar region ? Chiropractic Manipulative Tx Spinal 3-4 Regions 52727; 10/26/2024 15:27:00 CDT, Radiculopathy, lumbar region Spinal stenosis, lumbar region without neurogenic claudication Pain in left hip Segmental and somatic dysfunction of lumbar region Segmental and somatic dysfunction of thoracic region Seg... D iagnosis: 3 . P ain in left hip Comment: Ordered: Manual Therapy Tqs 1/> Regions Each 15 Minutes [id number]; 10/26/2024 15:27:00 CDT, 59, Radiculopathy, lumbar region Spinal stenosis, lumbar region without neurogenic claudication Pain in left hip Segmental and somatic dysfunction of lumbar region ? Chiropractic Manipulative Tx Spinal 3-4 Regions [id number]; 10/26/2024 15:27:00 CDT, Radiculopathy, lumbar region Spinal stenosis, lumbar region without neurogenic claudication Pain in left hip Segmental and somatic dysfunction of lumbar region Segmental and somatic dysfunction of thoracic region Seg... D iagnosis: 4 . S egmental and somatic dysfunction of lumbar region Comment: Ordered: Manual Therapy Tqs 1/> Regions Each 15 Minutes [id number]; 10/26/2024 15:27:00 CDT, 59, Radiculopathy, lumbar region Spinal stenosis, lumbar region without neurogenic claudication Pain in left hip Segmental and somatic dysfunction of lumbar region ? Chiropractic Manipulative Tx Spinal 3-4 Regions [id number]; 10/26/2024 15:27:00 CDT, Radiculopathy, lumbar region Spinal stenosis, lumbar region without neurogenic claudication Pain in left hip Segmental and somatic dysfunction of lumbar region Segmental and somatic dysfunction of thoracic region Seg... D iagnosis: 5 . S egmental and somatic dysfunction of thoracic region Comment: Ordered: Chiropractic Manipulative Tx Spinal 3-4 Regions [id number]; 10/26/2024 15:27:00 CDT, Radiculopathy, lumbar region Spinal stenosis, lumbar region without neurogenic claudication Pain in left hip Segmental and somatic dysfunction of lumbar region Segmental and somatic dysfunction of thoracic region Seg... D iagnosis: 6 . S egmental and somatic dysfunction of cervical region Comment: Ordered: Chiropractic Manipulative Tx Spinal 3-4 Regions [id number]; 10/26/2024 15:27:00 CDT, Radiculopathy, lumbar region Spinal stenosis, lumbar [...] Patient responded w ell to care m jaked by d ecreased intensity of pain i ncreased ROM d ecreased muscular hypertonicity s /p chiropractic treatment. Physician Signature //SIGNED// Dr. Binu Lin DC, [facility] Chiropractic Physician [address] [employer] [facility] D[facility]/Comm: [phone] / [phone] 10/26/24 15:25:29 Extracted from:Title: BEH Therapist OP Follow Up Note Author: TANA LIN, PhD, Psychology Date: 10/17/24 48 y/o , , male, [place] assigned to [employer] [facility] and working as [employer] self-referred to [facility] with symptoms consistent with depression including depressed mood, anhedonia, sleep changes, fatigue/low energy, concentration difficulties, and sense of worthlessness present with chronic pain associated with never oblation in his back for past 3 years. Pt also reports excessive worry that is difficult to control, increased irritability, and muscle tension. Pt's symptoms reportedly negatively impact performance at work and are noticeable by coworkers and by family. Pt has h as past history and diagnosis of PTSD from deployment-related and childhood trauma both of which p sonali has received trauma-directed treatment in [id number] and reportedly symptoms are currently more manageable on a daily basis than d epressive symptoms. Pt's brother is retired and has reportedly been diagnosed with b ipolar, PTSD, s ubstance abuse, TBI, and has attempted suicide. Pt's mother also reportedly struggles with anxiety. Pt's symptoms appear to be best described by Major Depressive Disorder with anxious distress with history of PTSD. Pt is reportedly undergoing a medical board process for t he nerve oblation and is requesting t reatment in order to better manage s ymptoms of depression and anxiety. Pt amenable to both CBT group (to begin 18-Sep-24) and individual therapy. ? Consulted with Dr. Liu regarding pt beginning CBT group on 18-Sep-24 versus 11-Sep-24 and next follow-up individual a ppointment scheduled for 04-Oct-24. [3] [4] Evette reid depressive disorder, single episode, mild Prognosis: Fair Benefits, Risks, Alternatives Discussed: Yes Treatment Plan: Practice good sleep hygiene, Referral to individual, family or group therapy Number of Visits Expected: 9-12 Target Symptoms: Anxiety, Depression, Trauma Goals of Treatment: Improve overall functioning, Decrease in target symptoms Methods of Monitoring Outcomes: Reduced KRZYSZTOF-7 score, Reduced PCL-5 score, Reduced PHQ-9 score Evaluation Type: By complexity Treatment Planning Requirements: 1) Developed treatment plan collaboratively with patient, with agreement on plan of care and goals, 2) Patient agrees to attend appointments, engage in treatment, discuss any concerns in order to meet treatment goals, 3) Provider will leverage patient strengths and limit potential barriers to treatment Extracted from:Title: FTR - back pain Author: BINU LIN DC Date: 10/09/24 D iagnosis: 1 . R adiculopathy, lumbar region Comment: Ordered: Manual Therapy Tqs 1/> Regions Each 15 Minutes [id number]; 10/09/2024 13:28:00 CDT, 59, Radiculopathy, lumbar region Spinal stenosis, lumbar region without neurogenic claudication Segmental and somatic dysfunction of sacral region Segmental and somatic dysfunction of lumbar region D iagnosis: 2 . S ryne stenosis, lumbar region without neurogenic claudication Comment: Ordered: Manual Therapy Tqs 1/> Regions Each 15 Minutes [id number]; 10/09/2024 13:28:00 CDT, 59, Radiculopathy, lumbar region Spinal stenosis, lumbar region without neurogenic claudication Segmental and somatic dysfunction of sacral region Segmental and somatic dysfunction of lumbar region ? Chiropractic Manipulative Tx Spinal 3-4 Regions [id number]; 10/09/2024 13:28:00 CDT, Spinal stenosis, lumbar region without neurogenic claudication Segmental and somatic dysfunction of sacral region Segmental and somatic dysfunction of thoracic region Segmental and somatic dysfunction of lumbar region D iagnosis: 3 . P ain in left hip Comment: Ordered: Chiropractic Manipulative Therapy, Extraspinal [id number]; 10/09/2024 13:28:00 CDT, Pain in left hip D iagnosis: 4 . S egmental and somatic dysfunction of lumbar region Comment: Ordered: Manual Therapy Tqs 1/> Regions Each 15 Minutes [id number]; 10/09/2024 13:28:00 CDT, 59, Radiculopathy, lumbar region Spinal stenosis, lumbar region without neurogenic claudication Segmental and somatic dysfunction of sacral region Segmental and somatic dysfunction of lumbar region ? Chiropractic Manipulative Tx Spinal 3-4 Regions [id number]; 10/09/2024 13:28:00 CDT, Spinal stenosis, lumbar region without neurogenic claudication Segmental and somatic dysfunction of sacral region Segmental and somatic dysfunction of thoracic region Segmental and somatic dysfunction of lumbar region D iagnosis: 5 . S egmental and somatic dysfunction of thoracic region Comment: Ordered: Chiropractic Manipulative Tx Spinal 3-4 Regions [id number]; 10/09/2024 13:28:00 CDT, Spinal stenosis, lumbar region without neurogenic claudication Segmental and somatic dysfunction of sacral region Segmental and somatic dysfunction of thoracic region Segmental and somatic dysfunction of lumbar region D iagnosis: 6 . S egmental and somatic dysfunction of sacral region Comment: Ordered: Manual Therapy Tqs 1/> Regions Each 15 Minutes [id number]; 10/09/2024 13:28:00 CDT, 59, Radiculopathy, lumbar region Spinal stenosis, lumbar region without neurogenic claudication Segmental and somatic dysfunction of sacral region Segmental and somatic dysfunction of lumbar region ? Chiropractic Manipulative Tx Spinal 3-4 Regions [id number]; 10/09/2024 13:28:00 CDT, Spinal stenosis, lumbar region without neurogenic claudication Segmental and somatic dysfunction of sacral region Segmental and somatic dysfunction of thoracic region Segmental and somatic dysfunction of lumbar region End of Orders Chiropractic Treatment Chiropractic [...] arked by d ecreased intensity of pain i ncreased ROM d ecreased muscular hypertonicity s /p chiropractic treatment. Physician Signature //SIGNED// Dr. Binu Lin, CARL, [facility] Chiropractic Physician [address] [employer] Natalie Mayers [facility] Main Line DSN/Comm: [phone] / [phone] 10/09/24 13:00:52 Extracted from:Title: BEH Therapist OP Follow Up Note Author: TANA LIN, PhD, Psychology Date: 10/04/24 48 y/o , , male, [place] assigned to [employer] and working as [employer] self-referred to [facility] with symptoms consistent with depression including depressed mood, anhedonia, sleep changes, fatigue/low energy, concentration difficulties, and sense of worthlessness present with chronic pain associated with never oblation in his back for past 3 years. Pt also reports excessive worry that is difficult to control, increased irritability, and muscle tension. Pt's symptoms reportedly negatively impact performance at work and are noticeable by coworkers and by family. Pt has h as past history and diagnosis of PTSD from deployment-related and childhood trauma both of which p t has received trauma-directed treatment in [id number] and reportedly symptoms are currently more manageable on a daily basis than d epressive symptoms. Pt's brother is retired and has reportedly been diagnosed with b ipolar, PTSD, s ubstance abuse, TBI, and has attempted suicide. Pt's mother also reportedly struggles with anxiety. Pt's symptoms appear to be best described by Major Depressive Disorder with anxious distress with history of PTSD. Pt is reportedly undergoing a medical board process for t he nerve oblation and is requesting t reatment in order to better manage s ymptoms of depression and anxiety. Pt amenable to both CBT group (to begin 18-Sep-24) and individual therapy. ? Consulted with Dr. Liu regarding pt beginning CBT group on 18-Sep-24 versus 11-Sep-24 and next follow-up individual a ppointment scheduled for 04-Oct-24. [3] 1. M ajor depressive disorder, single episode, mild with anxious distress -History of PTSD Prognosis: Fair Benefits, Risks, Alternatives Discussed: Yes Treatment Plan: Practice good sleep hygiene, Referral to individual, family or group therapy Number of Visits Expected: 9-12 Target Symptoms: Anxiety, Depression, Trauma Goals of Treatment: Improve overall functioning, Decrease in target symptoms Methods of Monitoring Outcomes: Reduced KRZYSZTOF-7 score, Reduced PCL-5 score, Reduced PHQ-9 score Evaluation Type: By complexity Treatment Planning Requirements: 1) Developed treatment plan collaboratively with patient, with agreement on plan of care and goals, 2) Patient agrees to attend appointments, engage in treatment, discuss any concerns in order to meet treatment goals, 3) Provider will leverage patient strengths and limit potential barriers to treatment Extracted from:Title: FTR - low back and hip pain Author: BINU LIN DC Date: 09/25/24 D iagnosis: 1 . R adiculopathy, lumbar region Comment: Ordered: Manual Therapy Tqs 1/> Regions Each 15 Minutes [id number]; 09/25/2024 13:52:00 CDT, 59, Radiculopathy, lumbar region Spinal stenosis, lumbar region without neurogenic claudication Segmental and somatic dysfunction of sacral region Segmental and somatic dysfunction of lumbar region ? Chiropractic Manipulative Tx Spinal 3-4 Regions [id number]; 09/25/2024 13:52:00 CDT, Radiculopathy, lumbar region Spinal stenosis, lumbar region without neurogenic claudication Segmental and somatic dysfunction of sacral region Segmental and somatic dysfunction of lumbar region Segmental and somatic dy... D iagnosis: 2 . S ryne stenosis, lumbar region without neurogenic claudication Comment: Ordered: Manual Therapy Tqs 1/> Regions Each 15 Minutes [id number]; 09/25/2024 13:52:00 CDT, 59, Radiculopathy, lumbar region Spinal stenosis, lumbar region without neurogenic claudication Segmental and somatic dysfunction of sacral region Segmental and somatic dysfunction of lumbar region ? Chiropractic Manipulative Tx Spinal 3-4 Regions [id number]; 09/25/2024 13:52:00 CDT, Radiculopathy, lumbar region Spinal stenosis, lumbar region without neurogenic claudication Segmental and somatic dysfunction of sacral region Segmental and somatic dysfunction of lumbar region Segmental and somatic dy... D iagnosis: 3 . S egmental and somatic dysfunction of sacral region Comment: Ordered: Manual Therapy Tqs 1/> Regions Each 15 Minutes [id number]; 09/25/2024 13:52:00 CDT, 59, Radiculopathy, lumbar region Spinal stenosis, lumbar region without neurogenic claudication Segmental and somatic dysfunction of sacral region Segmental and somatic dysfunction of lumbar region ? Chiropractic Manipulative Tx Spinal 3-4 Regions [id number]; 09/25/2024 13:52:00 CDT, Radiculopathy, lumbar region Spinal stenosis, lumbar region without neurogenic claudication Segmental and somatic dysfunction of sacral region Segmental and somatic dysfunction of lumbar region Segmental and somatic dy... D iagnosis: 4 . S egmental and somatic dysfunction of lumbar region Comment: Ordered: Manual Therapy Tqs 1/> Regions Each 15 Minutes [id number]; 09/25/2024 13:52:00 CDT, 59, Radiculopathy, lumbar region Spinal stenosis, lumbar region without neurogenic claudication Segmental and somatic dysfunction of sacral region Segmental and somatic dysfunction of lumbar region ? Chiropractic Manipulative Tx Spinal 3-4 Regions [id number]; 09/25/2024 13:52:00 CDT, Radiculopathy, lumbar region Spinal stenosis, lumbar region without neurogenic claudication Segmental and somatic dysfunction of sacral region Segmental and somatic dysfunction of lumbar region Segmental and somatic dy... D iagnosis: 5 . S egmental and somatic dysfunction of thoracic region Comment: Ordered: Chiropractic Manipulative Tx Spinal 3-4 Regions [id number]; 09/25/2024 13:52:00 CDT, Radiculopathy, lumbar region Spinal stenosis, lumbar region without neurogenic claudication Segmental and somatic dysfunction of sacral region Segmental and somatic dysfunction of lumbar region Segmental and somatic dy... D iagnosis: 6 . S egmental and somatic dysfunction of cervical region Comment: Ordered: Chiropractic Manipulative Tx Spinal 3-4 Regions [id number]; 09/25/2024 13:52:00 CDT, Radiculopathy, lumbar region Spinal stenosis, lumbar region without neurogenic claudication Segmental and somatic dysfunction of sacral region Segmental and somatic dysfunction of lumbar region Segmental and somatic dy... End of Orders Chiropractic Treatment Chiropractic Diversified [...] arked by d ecreased intensity of pain i ncreased ROM d ecreased muscular hypertonicity s /p chiropractic treatment. Physician Signature //SIGNED// Dr. Binu Lin DC, [facility] Chiropractic Physician [address] [employer] [facility] DSN/Comm: [phone] / [phone] 09/25/24 13:52:13 Extracted from:Title: FTR - Low back pain Author: BINU LIN DC Date: 09/12/24 D iagnosis: 1 . S ryne stenosis, lumbar region without neurogenic claudication Comment: Ordered: Manual Therapy Tqs 1/> Regions Each 15 Minutes [id number]; 09/12/2024 13:37:00 CDT, 59, Radiculopathy, lumbar region Spinal stenosis, lumbar region without neurogenic claudication Segmental and somatic dysfunction of sacral region Segmental and somatic dysfunction of lumbar region ? Chiropractic Manipulative Tx Spinal 3-4 Regions [id number]; 09/12/2024 13:37:00 CDT, Radiculopathy, lumbar region Spinal stenosis, lumbar region without neurogenic claudication Segmental and somatic dysfunction of sacral region Segmental and somatic dysfunction of lumbar region Segmental and somatic dy... D iagnosis: 2 . S egmental and somatic dysfunction of sacral region Comment: Ordered: Manual Therapy Tqs 1/> Regions Each 15 Minutes [id number]; 09/12/2024 13:37:00 CDT, 59, Radiculopathy, lumbar region Spinal stenosis, lumbar region without neurogenic claudication Segmental and somatic dysfunction of sacral region Segmental and somatic dysfunction of lumbar region ? Chiropractic Manipulative Tx Spinal 3-4 Regions [id number]; 09/12/2024 13:37:00 CDT, Radiculopathy, lumbar region Spinal stenosis, lumbar region without neurogenic claudication Segmental and somatic dysfunction of sacral region Segmental and somatic dysfunction of lumbar region Segmental and somatic dy... D iagnosis: 3 . S egmental and somatic dysfunction of lumbar region Comment: Ordered: Manual Therapy Tqs 1/> Regions Each 15 Minutes [id number]; 09/12/2024 13:37:00 CDT, 59, Radiculopathy, lumbar region Spinal stenosis, lumbar region without neurogenic claudication Segmental and somatic dysfunction of sacral region Segmental and somatic dysfunction of lumbar region ? Chiropractic Manipulative Tx Spinal 3-4 Regions [id number]; 09/12/2024 13:37:00 CDT, Radiculopathy, lumbar region Spinal stenosis, lumbar region without neurogenic claudication Segmental and somatic dysfunction of sacral region Segmental and somatic dysfunction of lumbar region Segmental and somatic dy... D iagnosis: 4 . S egmental and somatic dysfunction of thoracic region Comment: Ordered: Chiropractic Manipulative Tx Spinal 3-4 Regions [id number]; 09/12/2024 13:37:00 CDT, Radiculopathy, lumbar region Spinal stenosis, lumbar region without neurogenic claudication Segmental and somatic dysfunction of sacral region Segmental and somatic dysfunction of lumbar region Segmental and somatic dy... D iagnosis: 5 . R adiculopathy, lumbar region Comment: Ordered: Manual Therapy Tqs 1/> Regions Each 15 Minutes [id number]; 09/12/2024 13:37:00 CDT, 59, Radiculopathy, lumbar region Spinal stenosis, lumbar region without neurogenic claudication Segmental and somatic dysfunction of sacral region Segmental and somatic dysfunction of lumbar region ? Chiropractic Manipulative Tx Spinal 3-4 Regions [id number]; 09/12/2024 13:37:00 CDT, Radiculopathy, lumbar region Spinal stenosis, lumbar region without neurogenic claudication Segmental and somatic dysfunction of sacral region Segmental and somatic dysfunction of lumbar region Segmental and somatic dy... D iagnosis: S egmental and somatic dysfunction of cervical region Comment: Ordered: Chiropractic Manipulative Tx Spinal 3-4 Regions [id number]; 09/12/2024 13:37:00 CDT, Radiculopathy, lumbar region Spinal stenosis, lumbar region without neurogenic claudication Segmental and somatic dysfunction of sacral region Segmental and somatic dysfunction of lumbar region Segmental and somatic dy... End of Orders Chiropractic Treatment Chiropractic Diversified [...] arked by d ecreased intensity of pain i ncreased ROM _ ? s /p chiropractic treatment. Physician Signature //SIGNED// Dr. Binu Lin DC, [facility] Chiropractic Physician 375 [employer] Read[employer] Natalie Mayers [place] [place] [facility] Main Line DSN/Comm: [phone] / [phone] 09/12/24 13:30:18 Extracted from:Title: BEH Therapist OP Initial Visit Note Author: TANA LIN, PhD, Psychology Date: 09/10/24 48 y/o , , [place], [place] assigned to [employer] and working as [employer] self-referred to [facility] with symptoms consistent with depression including depressed mood, anhedonia, sleep changes, fatigue/low energy, concentration difficulties, and sense of worthlessness present with chronic pain associated with never oblation in his back for past 3 years. Pt also reports excessive worry that is difficult to control, increased irritability, and muscle tension. Pt's symptoms reportedly negatively impact performance at work and are noticeable by coworkers and by family. Pt has h as past history and diagnosis of PTSD from deployment-related and childhood trauma both of which p t has received trauma-directed treatment in [id number] and reportedly symptoms are currently more manageable on a daily basis than d epressive symptoms. Pt's brother is retired and has reportedly been diagnosed with b ipolar, PTSD, s ubstance abuse, TBI, and has attempted suicide. Pt's mother also reportedly struggles with anxiety. Pt's symptoms appear to be best described by Major Depressive Disorder with anxious distress with history of PTSD. Pt is reportedly undergoing a medical board process for t he nerve oblation and is requesting t reatment in order to better manage s ymptoms of depression and anxiety. Pt amenable to both CBT group (to begin 18-Sep-24) and individual therapy. ? Consulted with Dr. Liu regarding pt beginning CBT group on 18-Sep-24 versus 11-Sep-24 and next follow-up individual a ppointment scheduled for 04-Oct-24. 1. M ajor depressive disorder, single episode, mild with anxious distress -History of PTSD Prognosis: Fair Benefits, Risks, Alternatives Discussed: Yes Treatment Plan: Practice good sleep hygiene, Referral to individual, family or group therapy Number of Visits Expected: 9-12 Target Symptoms: Anxiety, Depression, Trauma Goals of Treatment: Improve overall functioning, Decrease in target symptoms Methods of Monitoring Outcomes: Reduced KRZYSZTOF-7 score, Reduced PCL-5 score, Reduced PHQ-9 score Evaluation Type: By complexity Treatment Planning Requirements: 1) Developed treatment plan collaboratively with patient, with agreement on plan of care and goals, 2) Patient agrees to attend appointments, engage in treatment, discuss any concerns in order to meet treatment goals, 3) Provider will leverage patient strengths and limit potential barriers to treatment Extracted from:Title: FTR - Low back pain Author: BINU LIN DC Date: 09/05/24 D iagnosis: 1 . S ryne stenosis, lumbar region without neurogenic claudication Comment: Ordered: Manual Therapy Tqs 1/> Regions Each 15 Minutes [id number]; 09/05/2024 11:53:00 CDT, 59, Spinal stenosis, lumbar region without neurogenic claudication Radiculopathy, lumbar region Pain in left hip Segmental and somatic dysfunction of sacral region Segmental and somatic dysfunction of lumbar region ? Chiropractic Manipulative Tx Spinal 3-4 Regions [id number]; 09/05/2024 11:53:00 CDT, Spinal stenosis, lumbar region without neurogenic claudication Radiculopathy, lumbar region Pain in left hip Segmental and somatic dysfunction of sacral region Segmental and somatic dysfunction of lumbar region Segme... D iagnosis: 2 . R adiculopathy, lumbar region Comment: Ordered: Manual Therapy Tqs 1/> Regions Each 15 Minutes [id number]; 09/05/2024 11:53:00 CDT, 59, Spinal stenosis, lumbar region without neurogenic claudication Radiculopathy, lumbar region Pain in left hip Segmental and somatic dysfunction of sacral region Segmental and somatic dysfunction of lumbar region ? Chiropractic Manipulative Tx Spinal 3-4 Regions [id number]; 09/05/2024 11:53:00 CDT, Spinal stenosis, lumbar region without neurogenic claudication Radiculopathy, lumbar region Pain in left hip Segmental and somatic dysfunction of sacral region Segmental and somatic dysfunction of lumbar region Segme... D iagnosis: 3 . P ain in left hip Comment: Ordered: Manual Therapy Tqs 1/> Regions Each 15 Minutes [id number]; 09/05/2024 11:53:00 CDT, 59, Spinal stenosis, lumbar region without neurogenic claudication Radiculopathy, lumbar region Pain in left hip Segmental and somatic dysfunction of sacral region Segmental and somatic dysfunction of lumbar region ? Chiropractic Manipulative Tx Spinal 3-4 Regions [id number]; 09/05/2024 11:53:00 CDT, Spinal stenosis, lumbar region without neurogenic claudication Radiculopathy, lumbar region Pain in left hip Segmental and somatic dysfunction of sacral region Segmental and somatic dysfunction of lumbar region Segme... D iagnosis: 4 . S egmental and somatic dysfunction of sacral region Comment: Ordered: Manual Therapy Tqs 1/> Regions Each 15 Minutes [id number]; 09/05/2024 11:53:00 CDT, 59, Spinal stenosis, lumbar region without neurogenic claudication Radiculopathy, lumbar region Pain in left hip Segmental and somatic dysfunction of sacral region Segmental and somatic dysfunction of lumbar region ? Chiropractic Manipulative Tx Spinal 3-4 Regions [id number]; 09/05/2024 11:53:00 CDT, Spinal stenosis, lumbar region without neurogenic claudication Radiculopathy, lumbar region Pain in left hip Segmental and somatic dysfunction of sacral region Segmental and somatic dysfunction of lumbar region Segme... D iagnosis: 5 . S egmental and somatic dysfunction of lumbar region Comment: Ordered: Manual Therapy Tqs 1/> Regions Each 15 Minutes [id number]; 09/05/2024 11:53:00 CDT, 59, Spinal stenosis, lumbar region without neurogenic claudication Radiculopathy, lumbar region Pain in left hip Segmental and somatic dysfunction of sacral region Segmental and somatic dysfunction of lumbar region ? Chiropractic Manipulative Tx Spinal 3-4 Regions [id number]; 09/05/2024 11:53:00 CDT, Spinal stenosis, lumbar region without neurogenic claudication Radiculopathy, lumbar region Pain in left hip Segmental and somatic dysfunction of sacral region Segmental and somatic dysfunction of lumbar region Segme... D iagnosis: 6 . S egmental and somatic dysfunction of thoracic region Comment: Ordered: Chiropractic Manipulative Tx Spinal 3-4 Regions [id number]; 09/05/2024 11:53:00 CDT, Spinal stenosis, lumbar region without neurogenic claudication Radiculopathy, lumbar region Pain in left hip Segmental and somatic dysfunction of sacral region Segmental and somatic dysfunction of lumbar region Segme... D iagnosis: 7 . S egmental and somatic dysfunction of cervical region Comment: Ordered: Chiropractic Manipulative Tx Spinal 3-4 Regions [id number]; 09/05/2024 11:53:00 CDT, Spinal stenosis, lumbar region without neurogenic claudication Radiculopathy, lumbar region Pain in left hip Segmental and somatic dysfunction of sacral region Segmental and somatic dysfunction of lumbar region Segme... End of Orders C hiropractic Treatment Chiropractic Diversified Adjustments S upine to C/S P safia T/S, S jose posture to Ilium, SI and L/S A T Performed attended, prone, Ray Flexion/Distraction (12min) to L/S, Protocol II, -59 Distinct separate procedure Therapeutic Modalities None Exercises Continue exercises as prescribed in treatment plan. Final Disposition Patient responded f air to care m arked by palomo veronica decreased intensity of pain i ncreased ROM? s /p chiropractic treatment. Physician Signature //SIGNED// Dr. Binu Lin DC, [facility]K Chiropractic Physician 375 Operational Medical Readiness Natalie Mayers [facility] Main Line DSN/Comm: [phone] / [phone] 09/05/24 11:10:24 Extracted from:Title: Optometry- acute Author: LUH CARBAJAL, OD, Optometry Date: 08/24/24 1. O cular pain, left eye Discussed findings with patient. No obvious abrasion, fb, edema, injection, c oncerns for infection. Discussed that punctate keratitis or allergic response might be causing irritation/pain. Discussed tx options ranging from self- monitoring to PFATs to steroid, pt declined treatment at present due to vast improvement from yesterday to today. Educated that we can improve vision to 20/20 with PH, likely vision is reduced due to refraction- edu to rtc after s ymptoms resolve and will completed manifest. Discussed to increase Restasis to BID for best result. Patient edu to r tc if w orsening, otherwise, will evaluate at CEE/spec check in near future. Pt agreed to all. Recommend: r tc i f symptoms worsen, or once resolved for s pec eval. I assessed the member's ocular health status and determined that it does not affect his/her ability to perform duties of assigned [employer]SC, meet deployment standards, meet retention standards, or complete all components of the Fitness Assessment. LUH CARBAJAL, Lt Col, OD Subassembly Supervisor MINDI Brown Extracted from:Title: FTR - Low back pain Author: BINU LIN DC Date: 08/23/24 D iagnosis: 1 . R adiculopathy, lumbar region Comment: Ordered: Manual Therapy Tqs 1/> Regions Each 15 Minutes [id number]; 08/23/2024 13:50:00 CDT, 59, Spinal stenosis, lumbar region without neurogenic claudication Radiculopathy, lumbar region Pain in left hip Segmental and somatic dysfunction of lumbar region Segmental and somatic dysfunction of thoracic region ... ? Chiropractic Manipulative Tx Spinal 3-4 Regions [id number]; 08/23/2024 13:50:00 CDT, Spinal stenosis, lumbar region without neurogenic claudication Radiculopathy, lumbar region Pain in left hip Segmental and somatic dysfunction of lumbar region Segmental and somatic dysfunction of thoracic region Seg... D iagnosis: 2 . S ryne stenosis, lumbar region without neurogenic claudication Comment: Ordered: Manual Therapy Tqs 1/> Regions Each 15 Minutes [id number]; 08/23/2024 13:50:00 CDT, 59, Spinal stenosis, lumbar region without neurogenic claudication Radiculopathy, lumbar region Pain in left hip Segmental and somatic dysfunction of lumbar region Segmental and somatic dysfunction of thoracic region ... ? Chiropractic Manipulative Tx Spinal 3-4 Regions [id number]; 08/23/2024 13:50:00 CDT, Spinal stenosis, lumbar region without neurogenic claudication Radiculopathy, lumbar region Pain in left hip Segmental and somatic dysfunction of lumbar region Segmental and somatic dysfunction of thoracic region Seg... D iagnosis: 3 . P ain in left hip Comment: Ordered: Manual Therapy Tqs 1/> Regions Each 15 Minutes [id number]; 08/23/2024 13:50:00 CDT, 59, Spinal stenosis, lumbar region without neurogenic claudication Radiculopathy, lumbar region Pain in left hip Segmental and somatic dysfunction of lumbar region Segmental and somatic dysfunction of thoracic region ... ? Chiropractic Manipulative Tx Spinal 3-4 Regions [id number]; 08/23/2024 13:50:00 CDT, Spinal stenosis, lumbar region without neurogenic claudication Radiculopathy, lumbar region Pain in left hip Segmental and somatic dysfunction of lumbar region Segmental and somatic dysfunction of thoracic region Seg... D iagnosis: 4 . S egmental and somatic dysfunction of lumbar region Comment: Ordered: Manual Therapy Tqs 1/> Regions Each 15 Minutes [id number]; 08/23/2024 13:50:00 CDT, 59, Spinal stenosis, lumbar region without neurogenic claudication Radiculopathy, lumbar region Pain in left hip Segmental and somatic dysfunction of lumbar region Segmental and somatic dysfunction of thoracic region ... ? Chiropractic Manipulative Tx Spinal 3-4 Regions [id number]; 08/23/2024 13:50:00 CDT, Spinal stenosis, lumbar region without neurogenic claudication Radiculopathy, lumbar region Pain in left hip Segmental and somatic dysfunction of lumbar region Segmental and somatic dysfunction of thoracic region Seg... D iagnosis: 5 . S egmental and somatic dysfunction of thoracic region Comment: Ordered: Manual Therapy Tqs 1/> Regions Each 15 Minutes [id number]; 08/23/2024 13:50:00 CDT, 59, Spinal stenosis, lumbar region without neurogenic claudication Radiculopathy, lumbar region Pain in left hip Segmental and somatic dysfunction of lumbar region Segmental and somatic dysfunction of thoracic region ... ? Chiropractic Manipulative Tx Spinal 3-4 Regions [id number]; 08/23/2024 13:50:00 CDT, Spinal stenosis, lumbar region without neurogenic claudication Radiculopathy, lumbar region Pain in left hip Segmental and somatic dysfunction of lumbar region Segmental and somatic dysfunction of thoracic region Seg... D iagnosis: 6 . S egmental and somatic dysfunction of cervical region Comment: Ordered: Manual Therapy Tqs 1/> Regions Each 15 Minutes [id number]; 08/23/2024 13:50:00 CDT, 59, Spinal stenosis, lumbar region without neurogenic claudication Radiculopathy, lumbar region Pain in left hip Segmental and somatic dysfunction of lumbar region Segmental and somatic dysfunction of thoracic region ... ? Chiropractic Manipulative Tx Spinal 3-4 Regions [id number]; 08/23/2024 13:50:00 CDT, Spinal stenosis, lumbar region without neurogenic [...] f air to care m arked by t emporary decreased intensity of pain s/p chiropractic treatment. Physician Signature //SIGNED// Dr. Binu Lin DC, [facility]K Chiropractic Physician 375 Operational Medical Readiness Natalie Mayers [facility], [facility] Main Line DSN/Comm: [phone] / [phone] 08/23/24 13:34:16 Extracted from:Title: [facility] Sinusitis/Eye irritation Author: APRIL SELBY PA, Family Medicine Date: 08/23/24 1. U RI - Upper respiratory infection 48-year-old male presents to clinic with sinusitis symptoms for the past 2 days. Patient states originally on the right side but has moved over to the left side. Patient states left-sided maxillary sinus pressure/pain, ear pain, upper teeth pain, some tenderness of his tonsillar nodes. Patient tried saline rinses and Flonase with no resolution. Pt unable to take pseudoephedrine d ue to spike in BP. He denies any fever/chills, respiratory distress. - T ylenol or Motrin q6-8 hrs, may alternate q4 hours - S ileana nasal wash with warm water - Rx guaifenesin for mucus - Rx Augmentin for empiric treatment if symptoms improve then worsen or persist past 10d days - Discussed adequate rest, hand washing, and hydration with water and electrolyte drink. - Pt. to follow up for worsening symptoms in 3-5 days or persistence in one week - Clinic vs. ER for respiratory distress or inability to hydrate per our discussion - Pt. told to expect cough to resolve slowly over one month - Pt understands and verbalizes agreement. Ordered: amoxicillin-clavulanate(amoxi cillin-clavulanate 875 mg-125 mg oral tablet), 1 tab(s), Oral, every 12 hr, X 7 days, # 14 tab(s), 0 total refill(s), Acute, 08/30/2024, Pharmacy: [facility], Respiratory, sinusitis [Not filled] guaiFENesin(guaiFENesin 600 mg oral tablet, extended release), 1 tab(s), Oral, every 12 hr, # 20 tab(s), 0 total refill(s), Acute, 09/06/2024, Pharmacy: [facility] [Last filled 08/23/24] 2. E ye pain Pt notes that while he was checking in he felt a sharp/stabbing pain in his left eye. Denies any vision changes or pain with eye movement but states pain with blinking. On exam, no obvious foreign body noted but possible corneal abrasion. No edema or erythema of eye or eye lids. -Randal Groft attempted s ileana rinse with no resolution -Recommended f/u with optometry for more thorough eye exam -Avoid rubbing eye/touching eye -f/u as needed or if symptoms worsen -ER precautions if eye pain worsens, pain with ocular movements, vision changes, new or worsening edema The patient (is not) World Wide Qualified. AM Dispo: Non-Fly Cleared for [employer]/MOS Duties: Yes Cleared for continued service: Y es Cleared for mobility duties: Y es Cleared for participation in physical fitness program: Y es PHA/MHA/DRHA: U April Menjivar, [employer], [place] [address] Please note that this dictation was completed with computer voice recognition software, Appcelerator. Quite often unanticipated grammatical, syntax, homophones, and other interpretive errors are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 [id number]; 11/02/2024 13:23:00 CDT, 59, Spinal stenosis, lumbar region without neurogenic claudication Radiculopathy, lumbar region Pain in left hip Segmental and somatic dysfunction of lumbar region ? Chiropractic Manipulative Tx Spinal 3-4 Regions [id number]; 11/02/2024 13:23:00 CDT, Spinal stenosis, lumbar region without neurogenic claudication Radiculopathy, lumbar region Pain in left hip Segmental and somatic dysfunction of lumbar region Segmental and somatic dysfunction of thoracic region Seg... D iagnosis: 4 . S egmental and somatic dysfunction of lumbar region Comment: Ordered: Manual Therapy Tqs 1/> Regions Each 15 Minutes [id number]; 11/02/2024 13:23:00 CDT, 59, Spinal stenosis, lumbar region without neurogenic claudication Radiculopathy, lumbar region Pain in left hip Segmental and somatic dysfunction of lumbar region ? Chiropractic Manipulative Tx Spinal 3-4 Regions [id number]; 11/02/2024 13:23:00 CDT, Spinal stenosis, lumbar region without neurogenic claudication Radiculopathy, lumbar region Pain in left hip Segmental and somatic dysfunction of lumbar region Segmental and somatic dysfunction of thoracic region Seg... D iagnosis: 5 . S egmental and somatic dysfunction of thoracic region Comment: Ordered: Chiropractic Manipulative Tx Spinal 3-4 Regions [id number]; 11/02/2024 13:23:00 CDT, Spinal stenosis, lumbar region without neurogenic claudication Radiculopathy, lumbar region Pain in left hip Segmental and somatic dysfunction of lumbar region Segmental and somatic dysfunction of thoracic region Seg... D iagnosis: 6 . S egmental and somatic dysfunction of cervical region Comment: Ordered: Chiropractic Manipulative Tx Spinal 3-4 Regions [id number]; 11/02/2024 13:23:00 CDT, Spinal stenosis, lumbar region without neurogenic [...] arked by d ecreased intensity of pain i ncreased ROM d ecreased muscular hypertonicity s /p chiropractic treatment. Physician Signature //SIGNED// Dr. Binu Lin DC, [facility] Chiropractic Physician [facility] [place], [place] [facility] Main Line DSN/Comm: [phone] / [phone] 11/02/24 13:22:10 Extracted from:Title: [facility] HL Author: LORRAINE NAQVI PA Date: 11/01/24 1. D ifficulty hearing *Virtual Appt: C onfirmed full name and before discussion* 48 Years o ld M r eports difficulty hearing x 2 months. Reports tinnitus. - Audiology referral placed - F/u o nce audiogram completed or sooner if needed Ordered: Referral Request 2.0 - DoD Medications reconciled. Pt verbalized understanding and agreement. LORRAINE NAQVI E, 1st Lt, [place] [address] Extracted from:Title: FTR - back pain Author: BINU LIN DC Date: 10/26/24 D iagnosis: 1 . R adiculopathy, lumbar region Comment: Ordered: Manual Therapy Tqs 1/> Regions Each 15 Minutes [id number]; 10/26/2024 15:27:00 CDT, 59, Radiculopathy, lumbar region Spinal stenosis, lumbar region without neurogenic claudication Pain in left hip Segmental and somatic dysfunction of lumbar region ? Chiropractic Manipulative Tx Spinal 3-4 Regions [id number]; 10/26/2024 15:27:00 CDT, Radiculopathy, lumbar region Spinal stenosis, lumbar region without neurogenic claudication Pain in left hip Segmental and somatic dysfunction of lumbar region Segmental and somatic dysfunction of thoracic region Seg... D iagnosis: 2 . S ryne stenosis, lumbar region without neurogenic claudication Comment: Ordered: Manual Therapy Tqs 1/> Regions Each 15 Minutes [id number]; 10/26/2024 15:27:00 CDT, 59, Radiculopathy, lumbar region Spinal stenosis, lumbar region without neurogenic claudication Pain in left hip Segmental and somatic dysfunction of lumbar region ? Chiropractic Manipulative Tx Spinal 3-4 Regions [id number]; 10/26/2024 15:27:00 CDT, Radiculopathy, lumbar region Spinal stenosis, lumbar region without neurogenic claudication Pain in left hip Segmental and somatic dysfunction of lumbar region Segmental and somatic dysfunction of thoracic region Seg... D iagnosis: 3 . P ain in left hip Comment: Ordered: Manual Therapy Tqs 1/> Regions Each 15 Minutes [id number]; 10/26/2024 15:27:00 CDT, 59, Radiculopathy, lumbar region Spinal stenosis, lumbar region without neurogenic claudication Pain in left hip Segmental and somatic dysfunction of lumbar region ? Chiropractic Manipulative Tx Spinal 3-4 Regions [id number]; 10/26/2024 15:27:00 CDT, Radiculopathy, lumbar region Spinal stenosis, lumbar region without neurogenic claudication Pain in left hip Segmental and somatic dysfunction of lumbar region Segmental and somatic dysfunction of thoracic region Seg... D iagnosis: 4 . S egmental and somatic dysfunction of lumbar region Comment: Ordered: Manual Therapy Tqs 1/> Regions Each 15 Minutes [id number]; 10/26/2024 15:27:00 CDT, 59, Radiculopathy, lumbar region Spinal stenosis, lumbar region without neurogenic claudication Pain in left hip Segmental and somatic dysfunction of lumbar region ? Chiropractic Manipulative Tx Spinal 3-4 Regions [id number]; 10/26/2024 15:27:00 CDT, Radiculopathy, lumbar region Spinal stenosis, lumbar region without neurogenic claudication Pain in left hip Segmental and somatic dysfunction of lumbar region Segmental and somatic dysfunction of thoracic region Seg... D iagnosis: 5 . S egmental and somatic dysfunction of thoracic region Comment: Ordered: Chiropractic Manipulative Tx Spinal 3-4 Regions 14493; 10/26/2024 15:27:00 CDT, Radiculopathy, lumbar region Spinal stenosis, lumbar region without neurogenic claudication Pain in left hip Segmental and somatic dysfunction of lumbar region Segmental and somatic dysfunction of thoracic region Seg... D iagnosis: 6 . S egmental and somatic dysfunction of cervical region Comment: Ordered: Chiropractic Manipulative Tx Spinal 3-4 Regions [id number]; 10/26/2024 15:27:00 CDT, Radiculopathy, lumbar region Spinal stenosis, lumbar [...] arked by d ecreased intensity of pain i ncreased ROM d ecreased muscular hypertonicity s /p chiropractic treatment. Physician Signature //SIGNED// Dr. Binu Lin DC, [facility] Chiropractic Physician [address] [employer] Natalie [facility] Main Line DSN/Comm: [phone] / [phone] 10/26/24 15:25:29 Extracted from:Title: [facility] Therapist OP Follow Up Note Author: TANA LIN, PhD, Psychology Date: 10/17/24 48 y/o , , male, [place] assigned to [employer] 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 with symptoms consistent with depression including depressed mood, anhedonia, sleep changes, fatigue/low energy, concentration difficulties, and sense of worthlessness present with chronic pain associated with never oblation in his back for past 3 years. Pt also reports excessive worry that is difficult to control, increased irritability, and muscle tension. Pt's symptoms reportedly negatively impact performance at work and are noticeable by coworkers and by family. Pt has h as past history and diagnosis of PTSD from deployment-related and childhood trauma both of which p t has received trauma-directed treatment in [id number] and reportedly symptoms are currently more manageable on a daily basis than d epressive symptoms. Pt's brother is retired and has reportedly been diagnosed with b ipolar, PTSD, s ubstance abuse, TBI, and has attempted suicide. Pt's mother also reportedly struggles with anxiety. Pt's symptoms appear to be best described by Major Depressive Disorder with anxious distress with history of PTSD. Pt is reportedly undergoing a medical board process for t he nerve oblation and is requesting t reatment in order to better manage s ymptoms of depression and anxiety. Pt amenable to both CBT group (to begin 18-Sep-24) and individual therapy. ? Consulted with Dr. Liu regarding pt beginning CBT group on 18-Sep-24 versus 11-Sep-24 and next follow-up individual a ppointment scheduled for 04-Oct-24. [3] [4] 1. M ajor depressive disorder, single episode, mild Prognosis: Fair Benefits, Risks, Alternatives Discussed: Yes Treatment Plan: Practice good sleep hygiene, Referral to individual, family or group therapy Number of Visits Expected: 9-12 Target Symptoms: Anxiety, Depression, Trauma Goals of Treatment: Improve overall functioning, Decrease in target symptoms Methods of Monitoring Outcomes: Reduced KRZYSZTOF-7 score, Reduced PCL-5 score, Reduced PHQ-9 score Evaluation Type: By complexity Treatment Planning Requirements: 1) Developed treatment plan collaboratively with patient, with agreement on plan of care and goals, 2) Patient agrees to attend appointments, engage in treatment, discuss any concerns in order to meet treatment goals, 3) Provider will leverage patient strengths and limit potential barriers to treatment Extracted from:Title: FTR - back pain Author: BINU LIN DC Date: 10/09/24 D iagnosis: 1 . R adiculopathy, lumbar region Comment: Ordered: Manual Therapy Tqs 1/> Regions Each 15 Minutes [id number]; 10/09/2024 13:28:00 CDT, 59, Radiculopathy, lumbar region Spinal stenosis, lumbar region without neurogenic claudication Segmental and somatic dysfunction of sacral region Segmental and somatic dysfunction of lumbar region D iagnosis: 2 . S ryne stenosis, lumbar region without neurogenic claudication Comment: Ordered: Manual Therapy Tqs 1/> Regions Each 15 Minutes [id number]; 10/09/2024 13:28:00 CDT, 59, Radiculopathy, lumbar region Spinal stenosis, lumbar region without neurogenic claudication Segmental and somatic dysfunction of sacral region Segmental and somatic dysfunction of lumbar region ? Chiropractic Manipulative Tx Spinal 3-4 Regions [id number]; 10/09/2024 13:28:00 CDT, Spinal stenosis, lumbar region without neurogenic claudication Segmental and somatic dysfunction of sacral region Segmental and somatic dysfunction of thoracic region Segmental and somatic dysfunction of lumbar region D iagnosis: 3 . P ain in left hip Comment: Ordered: Chiropractic Manipulative Therapy, Extraspinal [id number]; 10/09/2024 13:28:00 CDT, Pain in left hip D iagnosis: 4 . S egmental and somatic dysfunction of lumbar region Comment: Ordered: Manual Therapy Tqs 1/> Regions Each 15 Minutes [id number]; 10/09/2024 13:28:00 CDT, 59, Radiculopathy, lumbar region Spinal stenosis, lumbar region without neurogenic claudication Segmental and somatic dysfunction of sacral region Segmental and somatic dysfunction of lumbar region ? Chiropractic Manipulative Tx Spinal 3-4 Regions [id number]; 10/09/2024 13:28:00 CDT, Spinal stenosis, lumbar region without neurogenic claudication Segmental and somatic dysfunction of sacral region Segmental and somatic dysfunction of thoracic region Segmental and somatic dysfunction of lumbar region D iagnosis: 5 . S egmental and somatic dysfunction of thoracic region Comment: Ordered: Chiropractic Manipulative Tx Spinal 3-4 Regions 15823; 10/09/2024 13:28:00 CDT, Spinal stenosis, lumbar region without neurogenic claudication Segmental and somatic dysfunction of sacral region Segmental and somatic dysfunction of thoracic region Segmental and somatic dysfunction of lumbar region D iagnosis: 6 . S egmental and somatic dysfunction of sacral region Comment: Ordered: Manual Therapy Tqs 1/> Regions Each 15 Minutes [id number]; 10/09/2024 13:28:00 CDT, 59, Radiculopathy, lumbar region Spinal stenosis, lumbar region without neurogenic claudication Segmental and somatic dysfunction of sacral region Segmental and somatic dysfunction of lumbar region ? Chiropractic Manipulative Tx Spinal 3-4 Regions [id number]; 10/09/2024 13:28:00 CDT, Spinal stenosis, lumbar region without neurogenic claudication Segmental and somatic dysfunction of sacral region Segmental and somatic dysfunction of thoracic region Segmental and somatic dysfunction of lumbar region End of Orders Chiropractic Treatment Chiropractic [...] arked by d ecreased intensity of pain i ncreased ROM d ecreased muscular hypertonicity s /p chiropractic treatment. Physician Signature //SIGNED// Dr. Binu Lin DC, [facility] Chiropractic Physician [address] [employer] [facility] Talib [facility] Main Line DSN/Comm: [phone] / [phone] 10/09/24 13:00:52 Extracted from:Title: [facility] Therapist OP Follow Up Note Author: TANA LIN, PhD, Psychology Date: 10/04/24 48 y/o , , male, [place] assigned to 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 with symptoms consistent with depression including depressed mood, anhedonia, sleep changes, fatigue/low energy, concentration difficulties, and sense of worthlessness present with chronic pain associated with never oblation in his back for past 3 years. Pt also reports excessive worry that is difficult to control, increased irritability, and muscle tension. Pt's symptoms reportedly negatively impact performance at work and are noticeable by coworkers and by family. Pt has h as past history and diagnosis of PTSD from deployment-related and childhood trauma both of which p t has received trauma-directed treatment in [id number] and reportedly symptoms are currently more manageable on a daily basis than d epressive symptoms. Pt's brother is retired and has reportedly been diagnosed with b ipolar, PTSD, s ubstance abuse, TBI, and has attempted suicide. Pt's mother also reportedly struggles with anxiety. Pt's symptoms appear to be best described by Major Depressive Disorder with anxious distress with history of PTSD. Pt is reportedly undergoing a medical board process for t he nerve oblation and is requesting t reatment in order to better manage s ymptoms of depression and anxiety. Pt amenable to both CBT group (to begin 18-Sep-24) and individual therapy. ? Consulted with Dr. Liu regarding pt beginning CBT group on 18-Sep-24 versus 11-Sep-24 and next follow-up individual a ppointment scheduled for 04-Oct-24. [3] 1. M ajcyril depressive disorder, single episode, mild with anxious distress -History of PTSD Prognosis: Fair Benefits, Risks, Alternatives Discussed: Yes Treatment Plan: Practice good sleep hygiene, Referral to individual, family or group therapy Number of Visits Expected: 9-12 Target Symptoms: Anxiety, Depression, Trauma Goals of Treatment: Improve overall functioning, Decrease in target symptoms Methods of Monitoring Outcomes: Reduced KRZYSZTOF-7 score, Reduced PCL-5 score, Reduced PHQ-9 score Evaluation Type: By complexity Treatment Planning Requirements: 1) Developed treatment plan collaboratively with patient, with agreement on plan of care and goals, 2) Patient agrees to attend appointments, engage in treatment, discuss any concerns in order to meet treatment goals, 3) Provider will leverage patient strengths and limit potential barriers to treatment Extracted from:Title: FTR - low back and hip pain Author: BINU LIN DC Date: 09/25/24 D iagnosis: 1 . R adiculopathy, lumbar region Comment: Ordered: Manual Therapy Tqs 1/> Regions Each 15 Minutes [id number]; 09/25/2024 13:52:00 CDT, 59, Radiculopathy, lumbar region Spinal stenosis, lumbar region without neurogenic claudication Segmental and somatic dysfunction of sacral region Segmental and somatic dysfunction of lumbar region ? Chiropractic Manipulative Tx Spinal 3-4 Regions [id number]; 09/25/2024 13:52:00 CDT, Radiculopathy, lumbar region Spinal stenosis, lumbar region without neurogenic claudication Segmental and somatic dysfunction of sacral region Segmental and somatic dysfunction of lumbar region Segmental and somatic dy... D iagnosis: 2 . S ryne stenosis, lumbar region without neurogenic claudication Comment: Ordered: Manual Therapy Tqs 1/> Regions Each 15 Minutes [id number]; 09/25/2024 13:52:00 CDT, 59, Radiculopathy, lumbar region Spinal stenosis, lumbar region without neurogenic claudication Segmental and somatic dysfunction of sacral region Segmental and somatic dysfunction of lumbar region ? Chiropractic Manipulative Tx Spinal 3-4 Regions [id number]; 09/25/2024 13:52:00 CDT, Radiculopathy, lumbar region Spinal stenosis, lumbar region without neurogenic claudication Segmental and somatic dysfunction of sacral region Segmental and somatic dysfunction of lumbar region Segmental and somatic dy... D iagnosis: 3 . S egmental and somatic dysfunction of sacral region Comment: Ordered: Manual Therapy Tqs 1/> Regions Each 15 Minutes [id number]; 09/25/2024 13:52:00 CDT, 59, Radiculopathy, lumbar region Spinal stenosis, lumbar region without neurogenic claudication Segmental and somatic dysfunction of sacral region Segmental and somatic dysfunction of lumbar region ? Chiropractic Manipulative Tx Spinal 3-4 Regions [id number]; 09/25/2024 13:52:00 CDT, Radiculopathy, lumbar region Spinal stenosis, lumbar region without neurogenic claudication Segmental and somatic dysfunction of sacral region Segmental and somatic dysfunction of lumbar region Segmental and somatic dy... D iagnosis: 4 . S egmental and somatic dysfunction of lumbar region Comment: Ordered: Manual Therapy Tqs 1/> Regions Each 15 Minutes [id number]; 09/25/2024 13:52:00 CDT, 59, Radiculopathy, lumbar region Spinal stenosis, lumbar region without neurogenic claudication Segmental and somatic dysfunction of sacral region Segmental and somatic dysfunction of lumbar region ? Chiropractic Manipulative Tx Spinal 3-4 Regions [id number]; 09/25/2024 13:52:00 CDT, Radiculopathy, lumbar region Spinal stenosis, lumbar region without neurogenic claudication Segmental and somatic dysfunction of sacral region Segmental and somatic dysfunction of lumbar region Segmental and somatic dy... D iagnosis: 5 . S egmental and somatic dysfunction of thoracic region Comment: Ordered: Chiropractic Manipulative Tx Spinal 3-4 Regions [id number]; 09/25/2024 13:52:00 CDT, Radiculopathy, lumbar region Spinal stenosis, lumbar region without neurogenic claudication Segmental and somatic dysfunction of sacral region Segmental and somatic dysfunction of lumbar region Segmental and somatic dy... D iagnosis: 6 . S egmental and somatic dysfunction of cervical region Comment: Ordered: Chiropractic Manipulative Tx Spinal 3-4 Regions [id number]; 09/25/2024 13:52:00 CDT, Radiculopathy, lumbar region Spinal stenosis, lumbar region without neurogenic claudication Segmental and somatic dysfunction of sacral region Segmental and somatic dysfunction of lumbar region Segmental and somatic dy... End of Orders Chiropractic Treatment Chiropractic Diversified [...] arked by d ecreased intensity of pain i ncreased ROM d ecreased muscular hypertonicity s /p chiropractic treatment. Physician Signature //SIGNED// Dr. Binu Lin DC, [facility] Chiropractic Physician [employer] [facility] Main Line DSN/Comm: [phone] / [phone] 09/25/24 13:52:13 Extracted from:Title: FTR - Low back pain Author: BINU LIN DC Date: 09/12/24 D iagnosis: 1 . S ryne stenosis, lumbar region without neurogenic claudication Comment: Ordered: Manual Therapy Tqs 1/> Regions Each 15 Minutes [id number]; 09/12/2024 13:37:00 CDT, 59, Radiculopathy, lumbar region Spinal stenosis, lumbar region without neurogenic claudication Segmental and somatic dysfunction of sacral region Segmental and somatic dysfunction of lumbar region ? Chiropractic Manipulative Tx Spinal 3-4 Regions [id number]; 09/12/2024 13:37:00 CDT, Radiculopathy, lumbar region Spinal stenosis, lumbar region without neurogenic claudication Segmental and somatic dysfunction of sacral region Segmental and somatic dysfunction of lumbar region Segmental and somatic dy... D iagnosis: 2 . S egmental and somatic dysfunction of sacral region Comment: Ordered: Manual Therapy Tqs 1/> Regions Each 15 Minutes [id number]; 09/12/2024 13:37:00 CDT, 59, Radiculopathy, lumbar region Spinal stenosis, lumbar region without neurogenic claudication Segmental and somatic dysfunction of sacral region Segmental and somatic dysfunction of lumbar region ? Chiropractic Manipulative Tx Spinal 3-4 Regions [id number]; 09/12/2024 13:37:00 CDT, Radiculopathy, lumbar region Spinal stenosis, lumbar region without neurogenic claudication Segmental and somatic dysfunction of sacral region Segmental and somatic dysfunction of lumbar region Segmental and somatic dy... D iagnosis: 3 . S egmental and somatic dysfunction of lumbar region Comment: Ordered: Manual Therapy Tqs 1/> Regions Each 15 Minutes [id number]; 09/12/2024 13:37:00 CDT, 59, Radiculopathy, lumbar region Spinal stenosis, lumbar region without neurogenic claudication Segmental and somatic dysfunction of sacral region Segmental and somatic dysfunction of lumbar region ? Chiropractic Manipulative Tx Spinal 3-4 Regions [id number]; 09/12/2024 13:37:00 CDT, Radiculopathy, lumbar region Spinal stenosis, lumbar region without neurogenic claudication Segmental and somatic dysfunction of sacral region Segmental and somatic dysfunction of lumbar region Segmental and somatic dy... D iagnosis: 4 . S egmental and somatic dysfunction of thoracic region Comment: Ordered: Chiropractic Manipulative Tx Spinal 3-4 Regions [id number]; 09/12/2024 13:37:00 CDT, Radiculopathy, lumbar region Spinal stenosis, lumbar region without neurogenic claudication Segmental and somatic dysfunction of sacral region Segmental and somatic dysfunction of lumbar region Segmental and somatic dy... D iagnosis: 5 . R adiculopathy, lumbar region Comment: Ordered: Manual Therapy Tqs 1/> Regions Each 15 Minutes [id number]; 09/12/2024 13:37:00 CDT, 59, Radiculopathy, lumbar region Spinal stenosis, lumbar region without neurogenic claudication Segmental and somatic dysfunction of sacral region Segmental and somatic dysfunction of lumbar region ? Chiropractic Manipulative Tx Spinal 3-4 Regions [id number]; 09/12/2024 13:37:00 CDT, Radiculopathy, lumbar region Spinal stenosis, lumbar region without neurogenic claudication Segmental and somatic dysfunction of sacral region Segmental and somatic dysfunction of lumbar region Segmental and somatic dy... D iagnosis: S egmental and somatic dysfunction of cervical region Comment: Ordered: Chiropractic Manipulative Tx Spinal 3-4 Regions [id number]; 09/12/2024 13:37:00 CDT, Radiculopathy, lumbar region Spinal stenosis, lumbar region without neurogenic claudication Segmental and somatic dysfunction of sacral region Segmental and somatic dysfunction of lumbar region Segmental and somatic dy... End of Orders Chiropractic Treatment Chiropractic Diversified Adjustments S upine to C/S P safia T/S, S jose posture to Ilium, SI and L/S A T Performed attended, prone, Ray Flexion/Distraction (12min) to L/S, Protocol II, -59 Distinct separate procedure Therapeutic Modalities None Exercises Continue exercises as prescribed in treatment plan. Final Disposition Patient responded w ell to care m jaked by rony ecreased intensity of pain i ncreased ROM _ ? s /p chiropractic treatment. Physician Signature //SIGNED// Dr. Binu Lin DC, [facility] Chiropractic Physician [employer] [facility] D[facility]/Comm: [phone] / [phone] 09/12/24 13:30:18 Extracted from:Title: BEH Therapist OP Initial Visit Note Author: TANA LIN, PhD, Psychology Date: 09/10/24 48 y/o , , male, [place] assigned to 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 with symptoms consistent with depression including depressed mood, anhedonia, sleep changes, fatigue/low energy, concentration difficulties, and sense of worthlessness present with chronic pain associated with never oblation in his back for past 3 years. Pt also reports excessive worry that is difficult to control, increased irritability, and muscle tension. Pt's symptoms reportedly negatively impact performance at work and are noticeable by coworkers and by family. Pt has h as past history and diagnosis of PTSD from deployment-related and childhood trauma both of which p t has received trauma-directed treatment in [id number] and reportedly symptoms are currently more manageable on a daily basis than d epressive symptoms. Pt's brother is retired and has reportedly been diagnosed with b ipolar, PTSD, s ubstance abuse, TBI, and has attempted suicide. Pt's mother also reportedly struggles with anxiety. Pt's symptoms appear to be best described by Major Depressive Disorder with anxious distress with history of PTSD. Pt is reportedly undergoing a medical board process for t he nerve oblation and is requesting t reatment in order to better manage s ymptoms of depression and anxiety. Pt amenable to both CBT group (to begin 18-Sep-24) and individual therapy. ? Consulted with Dr. Liu regarding pt beginning CBT group on 18-Sep-24 versus 11-Sep-24 and next follow-up individual a ppointment scheduled for 04-Oct-24. 1. Palomo reid depressive disorder, single episode, mild with anxious distress -History of PTSD Prognosis: Fair Benefits, Risks, Alternatives Discussed: Yes Treatment Plan: Practice good sleep hygiene, Referral to individual, family or group therapy Number of Visits Expected: 9-12 Target Symptoms: Anxiety, Depression, Trauma Goals of Treatment: Improve overall functioning, Decrease in target symptoms Methods of Monitoring Outcomes: Reduced KRZYSZTOF-7 score, Reduced PCL-5 score, Reduced PHQ-9 score Evaluation Type: By complexity Treatment Planning Requirements: 1) Developed treatment plan collaboratively with patient, with agreement on plan of care and goals, 2) Patient agrees to attend appointments, engage in treatment, discuss any concerns in order to meet treatment goals, 3) Provider will leverage patient strengths and limit potential barriers to treatment Extracted from:Title: FTR - Low back pain Author: BINU LIN DC Date: 09/05/24 D iagnosis: 1 . S ryne stenosis, lumbar region without neurogenic claudication Comment: Ordered: Manual Therapy Tqs 1/> Regions Each 15 Minutes [id number]; 09/05/2024 11:53:00 CDT, 59, Spinal stenosis, lumbar region without neurogenic claudication Radiculopathy, lumbar region Pain in left hip Segmental and somatic dysfunction of sacral region Segmental and somatic dysfunction of lumbar region ? Chiropractic Manipulative Tx Spinal 3-4 Regions [id number]; 09/05/2024 11:53:00 CDT, Spinal stenosis, lumbar region without neurogenic claudication Radiculopathy, lumbar region Pain in left hip Segmental and somatic dysfunction of sacral region Segmental and somatic dysfunction of lumbar region Segme... D iagnosis: 2 . R adiculopathy, lumbar region Comment: Ordered: Manual Therapy Tqs 1/> Regions Each 15 Minutes [id number]; 09/05/2024 11:53:00 CDT, 59, Spinal stenosis, lumbar region without neurogenic claudication Radiculopathy, lumbar region Pain in left hip Segmental and somatic dysfunction of sacral region Segmental and somatic dysfunction of lumbar region ? Chiropractic Manipulative Tx Spinal 3-4 Regions [id number]; 09/05/2024 11:53:00 CDT, Spinal stenosis, lumbar region without neurogenic claudication Radiculopathy, lumbar region Pain in left hip Segmental and somatic dysfunction of sacral region Segmental and somatic dysfunction of lumbar region Segme... D iagnosis: 3 . P ain in left hip Comment: Ordered: Manual Therapy Tqs 1/> Regions Each 15 Minutes [id number]; 09/05/2024 11:53:00 CDT, 59, Spinal stenosis, lumbar region without neurogenic claudication Radiculopathy, lumbar region Pain in left hip Segmental and somatic dysfunction of sacral region Segmental and somatic dysfunction of lumbar region ? Chiropractic Manipulative Tx Spinal 3-4 Regions [id number]; 09/05/2024 11:53:00 CDT, Spinal stenosis, lumbar region without neurogenic claudication Radiculopathy, lumbar region Pain in left hip Segmental and somatic dysfunction of sacral region Segmental and somatic dysfunction of lumbar region Segme... D iagnosis: 4 . S egmental and somatic dysfunction of sacral region Comment: Ordered: Manual Therapy Tqs 1/> Regions Each 15 Minutes [id number]; 09/05/2024 11:53:00 CDT, 59, Spinal stenosis, lumbar region without neurogenic claudication Radiculopathy, lumbar region Pain in left hip Segmental and somatic dysfunction of sacral region Segmental and somatic dysfunction of lumbar region ? Chiropractic Manipulative Tx Spinal 3-4 Regions [id number]; 09/05/2024 11:53:00 CDT, Spinal stenosis, lumbar region without neurogenic claudication Radiculopathy, lumbar region Pain in left hip Segmental and somatic dysfunction of sacral region Segmental and somatic dysfunction of lumbar region Segme... D iagnosis: 5 . S egmental and somatic dysfunction of lumbar region Comment: Ordered: Manual Therapy Tqs 1/> Regions Each 15 Minutes [id number]; 09/05/2024 11:53:00 CDT, 59, Spinal stenosis, lumbar region without neurogenic claudication Radiculopathy, lumbar region Pain in left hip Segmental and somatic dysfunction of sacral region Segmental and somatic dysfunction of lumbar region ? Chiropractic Manipulative Tx Spinal 3-4 Regions [id number]; 09/05/2024 11:53:00 CDT, Spinal stenosis, lumbar region without neurogenic claudication Radiculopathy, lumbar region Pain in left hip Segmental and somatic dysfunction of sacral region Segmental and somatic dysfunction of lumbar region Segme... D iagnosis: 6 . S egmental and somatic dysfunction of thoracic region Comment: Ordered: Chiropractic Manipulative Tx Spinal 3-4 Regions [id number]; 09/05/2024 11:53:00 CDT, Spinal stenosis, lumbar region without neurogenic claudication Radiculopathy, lumbar region Pain in left hip Segmental and somatic dysfunction of sacral region Segmental and somatic dysfunction of lumbar region Segme... D iagnosis: 7 . S egmental and somatic dysfunction of cervical region Comment: Ordered: Chiropractic Manipulative Tx Spinal 3-4 Regions [id number]; 09/05/2024 11:53:00 CDT, Spinal stenosis, lumbar region without neurogenic claudication Radiculopathy, lumbar region Pain in left hip Segmental and somatic dysfunction of sacral region Segmental and somatic dysfunction of lumbar region Segme... End of Orders C hiropractic Treatment Chiropractic Diversified Adjustments S upine to C/S P safia T/S, S jose posture to Ilium, SI and L/S A T Performed attended, prone, Ray Flexion/Distraction (12min) to L/S, Protocol II, -59 Distinct separate procedure Therapeutic Modalities None Exercises Continue exercises as prescribed in treatment plan. Final Disposition Patient responded f air to care m arked by palomo inor decreased intensity of pain i ncreased ROM? s /p chiropractic treatment. Physician Signature //SIGNED// Dr. Binu Lin DC, [facility] Chiropractic Physician 375 [employer] Readiness Natalie [facility]ers [facility] Main Line DSN/Comm: [phone] / [phone] 09/05/24 11:10:24 Extracted from:Title: Optometry- acute Author: LUH CARBAJAL, OD, Optometry Date: 08/24/24 1. O cular pain, left eye Discussed findings with patient. No obvious abrasion, fb, edema, injection, c oncerns for infection. Discussed that punctate keratitis or allergic response might be causing irritation/pain. Discussed tx options ranging from self- monitoring to PFATs to steroid, pt declined treatment at present due to vast improvement from yesterday to today. Educated that we can improve vision to 20/20 with PH, likely vision is reduced due to refraction- edu to rtc after s ymptoms resolve and will completed manifest. Discussed to increase Restasis to BID for best result. Patient edu to r tc if w orsening, otherwise, will evaluate at CEE/spec check in near future. Pt agreed to all. Recommend: r tc i f symptoms worsen, or once resolved for s pec eval. I assessed the member's ocular health status and determined that it does not affect his/her ability to perform duties of assigned [employer], meet deployment standards, meet retention standards, or complete all components of the Fitness Assessment. LUH CARBAJAL, Lt Col, OD [employer] Supervisor [employer] [place], [place] Extracted from:Title: FTR - Low back pain Author: BINU LIN DC Date: 08/23/24 D iagnosis: 1 . R adiculopathy, lumbar region Comment: Ordered: Manual Therapy Tqs 1/> Regions Each 15 Minutes [id number]; 08/23/2024 13:50:00 CDT, 59, Spinal stenosis, lumbar region without neurogenic claudication Radiculopathy, lumbar region Pain in left hip Segmental and somatic dysfunction of lumbar region Segmental and somatic dysfunction of thoracic region ... ? Chiropractic Manipulative Tx Spinal 3-4 Regions [id number]; 08/23/2024 13:50:00 CDT, Spinal stenosis, lumbar region without neurogenic claudication Radiculopathy, lumbar region Pain in left hip Segmental and somatic dysfunction of lumbar region Segmental and somatic dysfunction of thoracic region Seg... D iagnosis: 2 . S ryne stenosis, lumbar region without neurogenic claudication Comment: Ordered: Manual Therapy Tqs 1/> Regions Each 15 Minutes [id number]; 08/23/2024 13:50:00 CDT, 59, Spinal stenosis, lumbar region without neurogenic claudication Radiculopathy, lumbar region Pain in left hip Segmental and somatic dysfunction of lumbar region Segmental and somatic dysfunction of thoracic region ... ? Chiropractic Manipulative Tx Spinal 3-4 Regions [id number]; 08/23/2024 13:50:00 CDT, Spinal stenosis, lumbar region without neurogenic claudication Radiculopathy, lumbar region Pain in left hip Segmental and somatic dysfunction of lumbar region Segmental and somatic dysfunction of thoracic region Seg... D iagnosis: 3 . P ain in left hip Comment: Ordered: Manual Therapy Tqs 1/> Regions Each 15 Minutes [id number]; 08/23/2024 13:50:00 CDT, 59, Spinal stenosis, lumbar region without neurogenic claudication Radiculopathy, lumbar region Pain in left hip Segmental and somatic dysfunction of lumbar region Segmental and somatic dysfunction of thoracic region ... ? Chiropractic Manipulative Tx Spinal 3-4 Regions [id number]; 08/23/2024 13:50:00 CDT, Spinal stenosis, lumbar region without neurogenic claudication Radiculopathy, lumbar region Pain in left hip Segmental and somatic dysfunction of lumbar region Segmental and somatic dysfunction of thoracic region Seg... D iagnosis: 4 . S egmental and somatic dysfunction of lumbar region Comment: Ordered: Manual Therapy Tqs 1/> Regions Each 15 Minutes [id number]; 08/23/2024 13:50:00 CDT, 59, Spinal stenosis, lumbar region without neurogenic claudication Radiculopathy, lumbar region Pain in left hip Segmental and somatic dysfunction of lumbar region Segmental and somatic dysfunction of thoracic region ... ? Chiropractic Manipulative Tx Spinal 3-4 Regions [id number]; 08/23/2024 13:50:00 CDT, Spinal stenosis, lumbar region without neurogenic claudication Radiculopathy, lumbar region Pain in left hip Segmental and somatic dysfunction of lumbar region Segmental and somatic dysfunction of thoracic region Seg... D iagnosis: 5 . S egmental and somatic dysfunction of thoracic region Comment: Ordered: Manual Therapy Tqs 1/> Regions Each 15 Minutes [id number]; 08/23/2024 13:50:00 CDT, 59, Spinal stenosis, lumbar region without neurogenic claudication Radiculopathy, lumbar region Pain in left hip Segmental and somatic dysfunction of lumbar region Segmental and somatic dysfunction of thoracic region ... ? Chiropractic Manipulative Tx Spinal 3-4 Regions [id number]; 08/23/2024 13:50:00 CDT, Spinal stenosis, lumbar region without neurogenic claudication Radiculopathy, lumbar region Pain in left hip Segmental and somatic dysfunction of lumbar region Segmental and somatic dysfunction of thoracic region Seg... D iagnosis: 6 . S egmental and somatic dysfunction of cervical region Comment: Ordered: Manual Therapy Tqs 1/> Regions Each 15 Minutes [id number]; 08/23/2024 13:50:00 CDT, 59, Spinal stenosis, lumbar region without neurogenic claudication Radiculopathy, lumbar region Pain in left hip Segmental and somatic dysfunction of lumbar region Segmental and somatic dysfunction of thoracic region ... ? Chiropractic Manipulative Tx Spinal 3-4 Regions [id number]; 08/23/2024 13:50:00 CDT, Spinal stenosis, lumbar region without neurogenic [...] f air to care m arked by t emporary decreased intensity of pain s/p chiropractic treatment. Physician Signature //SIGNED// Dr. Binu Lin, CARL, [facility] Chiropractic Physician [facility] [employer] Read[employer] [facility] Main Line DSN/Comm: [phone] / [phone] 08/23/24 13:34:16 Extracted from:Title: [facility] Sinusitis/Eye irritation Author: APRIL SELBY PA, Family Medicine Date: 08/23/24 1. U RI - Upper respiratory infection 48-year-old male presents to clinic with sinusitis symptoms for the past 2 days. Patient states originally on the right side but has moved over to the left side. Patient states left-sided maxillary sinus pressure/pain, ear pain, upper teeth pain, some tenderness of his tonsillar nodes. Patient tried saline rinses and Flonase with no resolution. Pt unable to take pseudoephedrine d ue to spike in BP. He denies any fever/chills, respiratory distress. - T ylenol or Motrin q6-8 hrs, may alternate q4 hours - S ileana nasal wash with warm water - Rx guaifenesin for mucus - Rx Augmentin for empiric treatment if symptoms improve then worsen or persist past 10d days - Discussed adequate rest, hand washing, and hydration with water and electrolyte drink. - Pt. to follow up for worsening symptoms in 3-5 days or persistence in one week - Clinic vs. ER for respiratory distress or inability to hydrate per our discussion - Pt. told to expect cough to resolve slowly over one month - Pt understands and verbalizes agreement. Ordered: amoxicillin-clavulanate(amoxi cillin-clavulanate 875 mg-125 mg oral tablet), 1 tab(s), Oral, every 12 hr, X 7 days, # 14 tab(s), 0 total refill(s), Acute, 08/30/2024, Pharmacy: [facility], Respiratory, sinusitis [Not filled] guaiFENesin(guaiFENesin 600 mg oral tablet, extended release), 1 tab(s), Oral, every 12 hr, # 20 tab(s), 0 total refill(s), Acute, 09/06/2024, Pharmacy: [facility] [Last filled 08/23/24] 2. E ye pain Pt notes that while he was checking in he felt a sharp/stabbing pain in his left eye. Denies any vision changes or pain with eye movement but states pain with blinking. On exam, no obvious foreign body noted but possible corneal abrasion. No edema or erythema of eye or eye lids. - Groft attempted s ileana rinse with no resolution -Recommended f/u with optometry for more thorough eye exam -Avoid rubbing eye/touching eye -f/u as needed or if symptoms worsen -ER precautions if eye pain worsens, pain with ocular movements, vision changes, new or worsening edema The patient (is not) World Wide Qualified. AM Dispo: Non-Fly Cleared for [employer]/MOS Duties: Yes Cleared for continued service: Y es Cleared for mobility duties: Y es Cleared for participation in physical fitness program: Y es PHA/MHA/DRHA: U April Menjivar, 1st Lt, [place] [address] Please note that this dictation was completed with computer voice recognition software, Appcelerator. Quite often unanticipated grammatical, syntax, homophones, and other interpretive errors are inadvertently transcribed by the computer software. Please disregard these errors and excuse any errors that have escaped final proofreading. If are any questions regarding documentation, please contact this provider directly. Extracted from:Title: FTR - Low back pain Author: BINU LIN DC Date: 08/15/24 D iagnosis: 1 . R adiculopathy, lumbar region Comment: Ordered: Manual Therapy Tqs 1/> Regions Each 15 Minutes [id number]; 08/15/2024 13:27:00 CDT, 59, Spinal stenosis, lumbar region without neurogenic claudication Radiculopathy, lumbar region Segmental and somatic dysfunction of lumbar region ? Chiropractic Manipulative Tx Spinal 3-4 Regions [id number]; 08/15/2024 13:27:00 CDT, Spinal stenosis, lumbar region without neurogenic claudication Radiculopathy, lumbar region Segmental and somatic dysfunction of lumbar region Segmental and somatic dysfunction of thoracic region Segmental and somatic... D iagnosis: 2 . S ryne stenosis, lumbar region without neurogenic claudication Comment: Ordered: Manual Therapy Tqs 1/> Regions Each 15 Minutes [id number]; 08/15/2024 13:27:00 CDT, 59, Spinal stenosis, lumbar region without neurogenic claudication Radiculopathy, lumbar region Segmental and somatic dysfunction of lumbar region ? Chiropractic Manipulative Tx Spinal 3-4 Regions [id number]; 08/15/2024 13:27:00 CDT, Spinal stenosis, lumbar region without neurogenic claudication Radiculopathy, lumbar region Segmental and somatic dysfunction of lumbar region Segmental and somatic dysfunction of thoracic region Segmental and somatic... D iagnosis: 3 . S egmental and somatic dysfunction of lumbar region Comment: Ordered: Manual Therapy Tqs 1/> Regions Each 15 Minutes [id number]; 08/15/2024 13:27:00 CDT, 59, Spinal stenosis, lumbar region without neurogenic claudication Radiculopathy, lumbar region Segmental and somatic dysfunction of lumbar region ? Chiropractic Manipulative Tx Spinal 3-4 Regions [id number]; 08/15/2024 13:27:00 CDT, Spinal stenosis, lumbar region without neurogenic claudication Radiculopathy, lumbar region Segmental and somatic dysfunction of lumbar region Segmental and somatic dysfunction of thoracic region Segmental and somatic... D iagnosis: 4 . S egmental and somatic dysfunction of cervical region Comment: Ordered: Chiropractic Manipulative Tx Spinal 3-4 Regions [id number]; 08/15/2024 13:27:00 CDT, Spinal stenosis, lumbar region without neurogenic claudication Radiculopathy, lumbar region Segmental and somatic dysfunction of lumbar region Segmental and somatic dysfunction of thoracic region Segmental and somatic... D iagnosis: 5 . S egmental and somatic dysfunction of thoracic region Comment: Ordered: Chiropractic Manipulative Tx Spinal 3-4 Regions [id number]; 08/15/2024 13:27:00 CDT, Spinal stenosis, lumbar region without neurogenic claudication Radiculopathy, lumbar region Segmental and somatic dysfunction of lumbar region [...] air to care m arked by s tabilization of c hronic pain a t 09/18, a ccommodation to r adicular s/sx temporary relief o f back p ain for a ?few hours t o a d ay s /p chiropractic treatment. Physician Signature //SIGNED// Dr. Binu Lin DC, RMSK Chiropractic Physician [facility] Main Line DSN/Comm: [phone] / [phone] 08/15/24 13:24:40 Extracted from:Title: FTR - Low back pain Author: BINU LIN DC Date: 08/08/24 D iagnosis: 1 . R adiculopathy, lumbar region Comment: Ordered: Chiropractic Manipulative Tx Spinal 3-4 Regions [id number]; 08/08/2024 13:37:00 CDT, Radiculopathy, lumbar region Spinal stenosis, lumbar region without neurogenic claudication Pain in left hip Segmental and somatic dysfunction of lumbar region Segmental and somatic dysfunction of thoracic region Seg... D iagnosis: 2 . S ryne stenosis, lumbar region without neurogenic claudication Comment: Ordered: Manual Therapy Tqs 1/> Regions Each 15 Minutes [id number]; 08/08/2024 13:37:00 CDT, 59, Spinal stenosis, lumbar region without neurogenic claudication Pain in left hip Segmental and somatic dysfunction of lumbar region ? Chiropractic Manipulative Tx Spinal 3-4 Regions [id number]; 08/08/2024 13:37:00 CDT, Radiculopathy, lumbar region Spinal stenosis, lumbar region without neurogenic claudication Pain in left hip Segmental and somatic dysfunction of lumbar region Segmental and somatic dysfunction of thoracic region Seg... D iagnosis: 3 . P ain in left hip Comment: Ordered: Manual Therapy Tqs 1/> Regions Each 15 Minutes [id number]; 08/08/2024 13:37:00 CDT, 59, Spinal stenosis, lumbar region without neurogenic claudication Pain in left hip Segmental and somatic dysfunction of lumbar region ? Chiropractic Manipulative Tx Spinal 3-4 Regions [id number]; 08/08/2024 13:37:00 CDT, Radiculopathy, lumbar region Spinal stenosis, lumbar region without neurogenic claudication Pain in left hip Segmental and somatic dysfunction of lumbar region Segmental and somatic dysfunction of thoracic region Seg... D iagnosis: 4 . S egmental and somatic dysfunction of sacral region Comment: Ordered: Chiropractic Manipulative Tx Spinal 3-4 Regions [id number]; 08/08/2024 13:37:00 CDT, Radiculopathy, lumbar region Spinal stenosis, lumbar region without neurogenic claudication Pain in left hip Segmental and somatic dysfunction of lumbar region Segmental and somatic dysfunction of thoracic region Seg... D iagnosis: 5 . S egmental and somatic dysfunction of lumbar region Comment: Ordered: Manual Therapy Tqs 1/> Regions Each 15 Minutes [id number]; 08/08/2024 13:37:00 CDT, 59, Spinal stenosis, lumbar region without neurogenic claudication Pain in left hip Segmental and somatic dysfunction of lumbar region ? Chiropractic Manipulative Tx Spinal 3-4 Regions [id number]; 08/08/2024 13:37:00 CDT, Radiculopathy, lumbar region Spinal stenosis, lumbar region without neurogenic claudication Pain in left hip Segmental and somatic dysfunction of lumbar region Segmental and somatic dysfunction of thoracic region Seg... D iagnosis: 6 . S egmental and somatic dysfunction of thoracic region Comment: Ordered: Chiropractic Manipulative Tx Spinal 3-4 Regions [id number]; 08/08/2024 13:37:00 CDT, Radiculopathy, lumbar region Spinal stenosis, lumbar region without neurogenic claudication Pain in left hip Segmental and somatic dysfunction of lumbar region Segmental and somatic dysfunction of thoracic region Seg... End of Orders Chiropractic Treatment Chiropractic Diversified Adjustments Prone T/S, S jose posture to Ilium, SI and L/S?AT Performed attended, prone, Ray Flexion/Distraction (12min) to L/S, Protocol II, -59 Distinct separate procedure Therapeutic Modalities None Exercises Continue exercises as prescribed in treatment plan. Final Disposition Patient responded w ell to care m arked by m ild decreased intensity of pain no increase in ROM s /p chiropractic treatment. Physician Signature //SIGNED// Dr. Binu Lin DC, RMSK Chiropractic Physician [address] [employer] Natalie [facility] Main Line DSN/Comm: [phone] / [phone] 08/08/24 13:13:15 Extracted from:Title: Referral for IDES Author: MOMO DICKINSON MD Date: 08/05/24 1. R adiculopathy, lumbar region I have been following the excellent care that this SM has received from the [employer] and have been available to update the [employer] MODs f or the [employer] PROFILE'ing. I agree with the resident's and staff's assessment for this patient in both LOGAN and the hand-written PROFILE notation. It appears to me that the SM has reached the MRDP (supported by subjective and persistent f unctional disability and pain along with the objective radiographic documentation of DDD with neuroforaminal stenosis which could explain the radicular pain). IAW AR 40-501, Chapter 3-20h at a minimum, this SM does not meet retention criteria and should be evaluated by the IDEs program. I will submit a permanent PROFILE to the IDEs ( Morena TORRES S upervisor, Ashly A [facility] - w ith the s upport o f C Garcia, DCCS, they h ave a greed to manage this S oldier d espite t he fact t hat he i s not in t heir catchment a abiodun) f or f urther evaluation and if qualifying, a s econd signature to initial the IDEs p rocess. 2. 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 Delmy nguyen performed multiple hospital visits including of his SM s who was brutally murdered. 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 ( 1 unit is 3 months long 40 hrs a week). 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 I n Feb 2023 he gained ADOS orders again and is currently serving on them. After conducting a head-to-toe physical examination and review of his medical records (JLV and LOGAN), I am concerned that he needs better documentation with regards to the followin) Charlotte delmy as been diagnosed with PTSD with 70% rating from the [facility]. DAVID reports migraines at least twice a month that are severe a nd weekly or more nightmares/terrors with night sweats disrupting sleep. Ky Tim has been on a nd off p rescription medicine for these since at least 2009 and C ombat and repeated b ack i njuries have seemed to increase these issues. The medications are S UMATRIPTAN, a nd BACLOFEN t ablets. PTS Has f ormal diagnosis and management recommendations. Delmy nguyen has sought out evidence base therapy through [facility]. 2) Plantar Fasciitis left foot I njured while on AD orders 2009 went through PT/OT, received steroid shots, and Plantar Fasciitis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 dysfunction of sacral region Segmental and somatic dysfunction of thoracic region Segmental and somatic dysfunction of lumbar region D iagnosis: 5 . S egmental and somatic dysfunction of thoracic region Comment: Ordered: Chiropractic Manipulative Tx Spinal 3-4 Regions [id number]; 10/09/2024 13:28:00 CDT, Spinal stenosis, lumbar region without neurogenic claudication Segmental and somatic dysfunction of sacral region Segmental and somatic dysfunction of thoracic region Segmental and somatic dysfunction of lumbar region D iagnosis: 6 . S egmental and somatic dysfunction of sacral region Comment: Ordered: Manual Therapy Tqs 1/> Regions Each 15 Minutes [id number]; 10/09/2024 13:28:00 CDT, 59, Radiculopathy, lumbar region Spinal stenosis, lumbar region without neurogenic claudication Segmental and somatic dysfunction of sacral region Segmental and somatic dysfunction of lumbar region ? Chiropractic Manipulative Tx Spinal 3-4 Regions [id number]; 10/09/2024 13:28:00 CDT, Spinal stenosis, lumbar region without neurogenic claudication Segmental and somatic dysfunction of sacral region Segmental and somatic dysfunction of thoracic region Segmental and somatic dysfunction of lumbar region End of Orders Chiropractic Treatment Chiropractic [...] arked by d ecreased intensity of pain i ncreased ROM d ecreased muscular hypertonicity s /p chiropractic treatment. Physician Signature //SIGNED// Dr. Binu Lin DC, [facility] Chiropractic Physician [address] [employer] Natalie KEYS, [facility] Main Line DSN/Comm: [phone] / [phone] 10/09/24 13:00:52 Extracted from:Title: BEH Therapist OP Follow Up Note Author: TANA LIN, PhD, Psychology Date: 10/04/24 48 y/o , , male, [place] assigned to [employer] and working as [employer] self-referred to [facility] with symptoms consistent with depression including depressed mood, anhedonia, sleep changes, fatigue/low energy, concentration difficulties, and sense of worthlessness present with chronic pain associated with never oblation in his back for past 3 years. Pt also reports excessive worry that is difficult to control, increased irritability, and muscle tension. Pt's symptoms reportedly negatively impact performance at work and are noticeable by coworkers and by family. Pt has h as past history and diagnosis of PTSD from deployment-related and childhood trauma both of which p t has received trauma-directed treatment in [id number] and reportedly symptoms are currently more manageable on a daily basis than d epressive symptoms. Pt's brother is retired and has reportedly been diagnosed with b ipolar, PTSD, s ubstance abuse, TBI, and has attempted suicide. Pt's mother also reportedly struggles with anxiety. Pt's symptoms appear to be best described by Major Depressive Disorder with anxious distress with history of PTSD. Pt is reportedly undergoing a medical board process for t he nerve oblation and is requesting t reatment in order to better manage s ymptoms of depression and anxiety. Pt amenable to both CBT group (to begin 18-Sep-24) and individual therapy. ? Consulted with Dr. Liu regarding pt beginning CBT group on 18-Sep-24 versus 11-Sep-24 and next follow-up individual a ppointment scheduled for 04-Oct-24. [3] 1. M ajor depressive disorder, single episode, mild with anxious distress -History of PTSD Prognosis: Fair Benefits, Risks, Alternatives Discussed: Yes Treatment Plan: Practice good sleep hygiene, Referral to individual, family or group therapy Number of Visits Expected: 9-12 Target Symptoms: Anxiety, Depression, Trauma Goals of Treatment: Improve overall functioning, Decrease in target symptoms Methods of Monitoring Outcomes: Reduced KRZYSZTOF-7 score, Reduced PCL-5 score, Reduced PHQ-9 score Evaluation Type: By complexity Treatment Planning Requirements: 1) Developed treatment plan collaboratively with patient, with agreement on plan of care and goals, 2) Patient agrees to attend appointments, engage in treatment, discuss any concerns in order to meet treatment goals, 3) Provider will leverage patient strengths and limit potential barriers to treatment Extracted from:Title: FTR - low back and hip pain Author: BINU LIN DC Date: 09/25/24 D iagnosis: 1 . R adiculopathy, lumbar region Comment: Ordered: Manual Therapy Tqs 1/> Regions Each 15 Minutes [id number]; 09/25/2024 13:52:00 CDT, 59, Radiculopathy, lumbar region Spinal stenosis, lumbar region without neurogenic claudication Segmental and somatic dysfunction of sacral region Segmental and somatic dysfunction of lumbar region ? Chiropractic Manipulative Tx Spinal 3-4 Regions [id number]; 09/25/2024 13:52:00 CDT, Radiculopathy, lumbar region Spinal stenosis, lumbar region without neurogenic claudication Segmental and somatic dysfunction of sacral region Segmental and somatic dysfunction of lumbar region Segmental and somatic dy... D iagnosis: 2 . S ryne stenosis, lumbar region without neurogenic claudication Comment: Ordered: Manual Therapy Tqs 1/> Regions Each 15 Minutes [id number]; 09/25/2024 13:52:00 CDT, 59, Radiculopathy, lumbar region Spinal stenosis, lumbar region without neurogenic claudication Segmental and somatic dysfunction of sacral region Segmental and somatic dysfunction of lumbar region ? Chiropractic Manipulative Tx Spinal 3-4 Regions [id number]; 09/25/2024 13:52:00 CDT, Radiculopathy, lumbar region Spinal stenosis, lumbar region without neurogenic claudication Segmental and somatic dysfunction of sacral region Segmental and somatic dysfunction of lumbar region Segmental and somatic dy... D iagnosis: 3 . S egmental and somatic dysfunction of sacral region Comment: Ordered: Manual Therapy Tqs 1/> Regions Each 15 Minutes [id number]; 09/25/2024 13:52:00 CDT, 59, Radiculopathy, lumbar region Spinal stenosis, lumbar region without neurogenic claudication Segmental and somatic dysfunction of sacral region Segmental and somatic dysfunction of lumbar region ? Chiropractic Manipulative Tx Spinal 3-4 Regions [id number]; 09/25/2024 13:52:00 CDT, Radiculopathy, lumbar region Spinal stenosis, lumbar region without neurogenic claudication Segmental and somatic dysfunction of sacral region Segmental and somatic dysfunction of lumbar region Segmental and somatic dy... D iagnosis: 4 . S egmental and somatic dysfunction of lumbar region Comment: Ordered: Manual Therapy Tqs 1/> Regions Each 15 Minutes [id number]; 09/25/2024 13:52:00 CDT, 59, Radiculopathy, lumbar region Spinal stenosis, lumbar region without neurogenic claudication Segmental and somatic dysfunction of sacral region Segmental and somatic dysfunction of lumbar region ? Chiropractic Manipulative Tx Spinal 3-4 Regions [id number]; 09/25/2024 13:52:00 CDT, Radiculopathy, lumbar region Spinal stenosis, lumbar region without neurogenic claudication Segmental and somatic dysfunction of sacral region Segmental and somatic dysfunction of lumbar region Segmental and somatic dy... D iagnosis: 5 . S egmental and somatic dysfunction of thoracic region Comment: Ordered: Chiropractic Manipulative Tx Spinal 3-4 Regions [id number]; 09/25/2024 13:52:00 CDT, Radiculopathy, lumbar region Spinal stenosis, lumbar region without neurogenic claudication Segmental and somatic dysfunction of sacral region Segmental and somatic dysfunction of lumbar region Segmental and somatic dy... D iagnosis: 6 . S egmental and somatic dysfunction of cervical region Comment: Ordered: Chiropractic Manipulative Tx Spinal 3-4 Regions [id number]; 09/25/2024 13:52:00 CDT, Radiculopathy, lumbar region Spinal stenosis, lumbar region without neurogenic claudication Segmental and somatic dysfunction of sacral region Segmental and somatic dysfunction of lumbar region Segmental and somatic dy... End of Orders Chiropractic Treatment Chiropractic Diversified [...] arked by d ecreased intensity of pain i ncreased ROM d ecreased muscular hypertonicity s /p chiropractic treatment. Physician Signature //SIGNED// Dr. Binu Lin DC, [facility] Chiropractic Physician 375 [employer] Readiness Natalie Mayers [facility] Main Line DSN/Comm: [phone] / [phone] 09/25/24 13:52:13 Extracted from:Title: FTR - Low back pain Author: BINU LIN DC Date: 09/12/24 D iagnosis: 1 . S ryne stenosis, lumbar region without neurogenic claudication Comment: Ordered: Manual Therapy Tqs 1/> Regions Each 15 Minutes [id number]; 09/12/2024 13:37:00 CDT, 59, Radiculopathy, lumbar region Spinal stenosis, lumbar region without neurogenic claudication Segmental and somatic dysfunction of sacral region Segmental and somatic dysfunction of lumbar region ? Chiropractic Manipulative Tx Spinal 3-4 Regions [id number]; 09/12/2024 13:37:00 CDT, Radiculopathy, lumbar region Spinal stenosis, lumbar region without neurogenic claudication Segmental and somatic dysfunction of sacral region Segmental and somatic dysfunction of lumbar region Segmental and somatic dy... D iagnosis: 2 . S egmental and somatic dysfunction of sacral region Comment: Ordered: Manual Therapy Tqs 1/> Regions Each 15 Minutes [id number]; 09/12/2024 13:37:00 CDT, 59, Radiculopathy, lumbar region Spinal stenosis, lumbar region without neurogenic claudication Segmental and somatic dysfunction of sacral region Segmental and somatic dysfunction of lumbar region ? Chiropractic Manipulative Tx Spinal 3-4 Regions [id number]; 09/12/2024 13:37:00 CDT, Radiculopathy, lumbar region Spinal stenosis, lumbar region without neurogenic claudication Segmental and somatic dysfunction of sacral region Segmental and somatic dysfunction of lumbar region Segmental and somatic dy... D iagnosis: 3 . S egmental and somatic dysfunction of lumbar region Comment: Ordered: Manual Therapy Tqs 1/> Regions Each 15 Minutes [id number]; 09/12/2024 13:37:00 CDT, 59, Radiculopathy, lumbar region Spinal stenosis, lumbar region without neurogenic claudication Segmental and somatic dysfunction of sacral region Segmental and somatic dysfunction of lumbar region ? Chiropractic Manipulative Tx Spinal 3-4 Regions [id number]; 09/12/2024 13:37:00 CDT, Radiculopathy, lumbar region Spinal stenosis, lumbar region without neurogenic claudication Segmental and somatic dysfunction of sacral region Segmental and somatic dysfunction of lumbar region Segmental and somatic dy... D iagnosis: 4 . S egmental and somatic dysfunction of thoracic region Comment: Ordered: Chiropractic Manipulative Tx Spinal 3-4 Regions [id number]; 09/12/2024 13:37:00 CDT, Radiculopathy, lumbar region Spinal stenosis, lumbar region without neurogenic claudication Segmental and somatic dysfunction of sacral region Segmental and somatic dysfunction of lumbar region Segmental and somatic dy... D iagnosis: 5 . R adiculopathy, lumbar region Comment: Ordered: Manual Therapy Tqs 1/> Regions Each 15 Minutes [id number]; 09/12/2024 13:37:00 CDT, 59, Radiculopathy, lumbar region Spinal stenosis, lumbar region without neurogenic claudication Segmental and somatic dysfunction of sacral region Segmental and somatic dysfunction of lumbar region ? Chiropractic Manipulative Tx Spinal 3-4 Regions [id number]; 09/12/2024 13:37:00 CDT, Radiculopathy, lumbar region Spinal stenosis, lumbar region without neurogenic claudication Segmental and somatic dysfunction of sacral region Segmental and somatic dysfunction of lumbar region Segmental and somatic dy... D iagnosis: S egmental and somatic dysfunction of cervical region Comment: Ordered: Chiropractic Manipulative Tx Spinal 3-4 Regions [id number]; 09/12/2024 13:37:00 CDT, Radiculopathy, lumbar region Spinal stenosis, lumbar region without neurogenic claudication Segmental and somatic dysfunction of sacral region Segmental and somatic dysfunction of lumbar region Segmental and somatic dy... End of Orders Chiropractic Treatment Chiropractic Diversified [...] arked by d ecreased intensity of pain i ncreased ROM _ ? s /p chiropractic treatment. Physician Signature //SIGNED// Dr. Binu Lin DC, [facility] Chiropractic Physician [employer] Natalie KEYS, [facility] Main Line DSN/Comm: [phone] / [phone] 09/12/24 13:30:18 Extracted from:Title: BEH Therapist OP Initial Visit Note Author: TANA LIN, PhD, Psychology Date: 09/10/24 48 y/o , , male, [place] assigned to [facility] 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 with symptoms consistent with depression including depressed mood, anhedonia, sleep changes, fatigue/low energy, concentration difficulties, and sense of worthlessness present with chronic pain associated with never oblation in his back for past 3 years. Pt also reports excessive worry that is difficult to control, increased irritability, and muscle tension. Pt's symptoms reportedly negatively impact performance at work and are noticeable by coworkers and by family. Pt has h as past history and diagnosis of PTSD from deployment-related and childhood trauma both of which p t has received trauma-directed treatment in [id number] and reportedly symptoms are currently more manageable on a daily basis than d epressive symptoms. Pt's brother is retired and has reportedly been diagnosed with b ipolar, PTSD, s ubstance abuse, TBI, and has attempted suicide. Pt's mother also reportedly struggles with anxiety. Pt's symptoms appear to be best described by Major Depressive Disorder with anxious distress with history of PTSD. Pt is reportedly undergoing a medical board process for t he nerve oblation and is requesting t reatment in order to better manage s ymptoms of depression and anxiety. Pt amenable to both CBT group (to begin 18-Sep-24) and individual therapy. ? Consulted with Dr. Liu regarding pt beginning CBT group on 18-Sep-24 versus 11-Sep-24 and next follow-up individual a ppointment scheduled for 04-Oct-24. 1. M ajor depressive disorder, single episode, mild with anxious distress -History of PTSD Prognosis: Fair Benefits, Risks, Alternatives Discussed: Yes Treatment Plan: Practice good sleep hygiene, Referral to individual, family or group therapy Number of Visits Expected: 9-12 Target Symptoms: Anxiety, Depression, Trauma Goals of Treatment: Improve overall functioning, Decrease in target symptoms Methods of Monitoring Outcomes: Reduced KRZYSZTOF-7 score, Reduced PCL-5 score, Reduced PHQ-9 score Evaluation Type: By complexity Treatment Planning Requirements: 1) Developed treatment plan collaboratively with patient, with agreement on plan of care and goals, 2) Patient agrees to attend appointments, engage in treatment, discuss any concerns in order to meet treatment goals, 3) Provider will leverage patient strengths and limit potential barriers to treatment Extracted from:Title: FTR - Low back pain Author: BINU LIN DC Date: 09/05/24 D iagnosis: 1 . S ryne stenosis, lumbar region without neurogenic claudication Comment: Ordered: Manual Therapy Tqs 1/> Regions Each 15 Minutes [id number]; 09/05/2024 11:53:00 CDT, 59, Spinal stenosis, lumbar region without neurogenic claudication Radiculopathy, lumbar region Pain in left hip Segmental and somatic dysfunction of sacral region Segmental and somatic dysfunction of lumbar region ? Chiropractic Manipulative Tx Spinal 3-4 Regions [id number]; 09/05/2024 11:53:00 CDT, Spinal stenosis, lumbar region without neurogenic claudication Radiculopathy, lumbar region Pain in left hip Segmental and somatic dysfunction of sacral region Segmental and somatic dysfunction of lumbar region Segme... D iagnosis: 2 . R adiculopathy, lumbar region Comment: Ordered: Manual Therapy Tqs 1/> Regions Each 15 Minutes [id number]; 09/05/2024 11:53:00 CDT, 59, Spinal stenosis, lumbar region without neurogenic claudication Radiculopathy, lumbar region Pain in left hip Segmental and somatic dysfunction of sacral region Segmental and somatic dysfunction of lumbar region ? Chiropractic Manipulative Tx Spinal 3-4 Regions [id number]; 09/05/2024 11:53:00 CDT, Spinal stenosis, lumbar region without neurogenic claudication Radiculopathy, lumbar region Pain in left hip Segmental and somatic dysfunction of sacral region Segmental and somatic dysfunction of lumbar region Segme... D iagnosis: 3 . P ain in left hip Comment: Ordered: Manual Therapy Tqs 1/> Regions Each 15 Minutes [id number]; 09/05/2024 11:53:00 CDT, 59, Spinal stenosis, lumbar region without neurogenic claudication Radiculopathy, lumbar region Pain in left hip Segmental and somatic dysfunction of sacral region Segmental and somatic dysfunction of lumbar region ? Chiropractic Manipulative Tx Spinal 3-4 Regions [id number]; 09/05/2024 11:53:00 CDT, Spinal stenosis, lumbar region without neurogenic claudication Radiculopathy, lumbar region Pain in left hip Segmental and somatic dysfunction of sacral region Segmental and somatic dysfunction of lumbar region Segme... D iagnosis: 4 . S egmental and somatic dysfunction of sacral region Comment: Ordered: Manual Therapy Tqs 1/> Regions Each 15 Minutes [id number]; 09/05/2024 11:53:00 CDT, 59, Spinal stenosis, lumbar region without neurogenic claudication Radiculopathy, lumbar region Pain in left hip Segmental and somatic dysfunction of sacral region Segmental and somatic dysfunction of lumbar region ? Chiropractic Manipulative Tx Spinal 3-4 Regions [id number]; 09/05/2024 11:53:00 CDT, Spinal stenosis, lumbar region without neurogenic claudication Radiculopathy, lumbar region Pain in left hip Segmental and somatic dysfunction of sacral region Segmental and somatic dysfunction of lumbar region Segme... D iagnosis: 5 . S egmental and somatic dysfunction of lumbar region Comment: Ordered: Manual Therapy Tqs 1/> Regions Each 15 Minutes [id number]; 09/05/2024 11:53:00 CDT, 59, Spinal stenosis, lumbar region without neurogenic claudication Radiculopathy, lumbar region Pain in left hip Segmental and somatic dysfunction of sacral region Segmental and somatic dysfunction of lumbar region ? Chiropractic Manipulative Tx Spinal 3-4 Regions [id number]; 09/05/2024 11:53:00 CDT, Spinal stenosis, lumbar region without neurogenic claudication Radiculopathy, lumbar region Pain in left hip Segmental and somatic dysfunction of sacral region Segmental and somatic dysfunction of lumbar region Segme... D iagnosis: 6 . S egmental and somatic dysfunction of thoracic region Comment: Ordered: Chiropractic Manipulative Tx Spinal 3-4 Regions [id number]; 09/05/2024 11:53:00 CDT, Spinal stenosis, lumbar region without neurogenic claudication Radiculopathy, lumbar region Pain in left hip Segmental and somatic dysfunction of sacral region Segmental and somatic dysfunction of lumbar region Segme... D iagnosis: 7 . S egmental and somatic dysfunction of cervical region Comment: Ordered: Chiropractic Manipulative Tx Spinal 3-4 Regions [id number]; 09/05/2024 11:53:00 CDT, Spinal stenosis, lumbar region without neurogenic claudication Radiculopathy, lumbar region Pain in left hip Segmental and somatic dysfunction of sacral region Segmental and somatic dysfunction of lumbar region Segme... End of Orders C hiropractic Treatment Chiropractic Diversified Adjustments S upine to C/S P safia T/S, S jose posture to Ilium, SI and L/S A T Performed attended, prone, Ray Flexion/Distraction (12min) to L/S, Protocol II, -59 Distinct separate procedure Therapeutic Modalities None Exercises Continue exercises as prescribed in treatment plan. Final Disposition Patient responded f air to care m arked by m inor decreased intensity of pain i ncreased ROM? s /p chiropractic treatment. Physician Signature //SIGNED// Dr. Binu Lin DC, [facility] Chiropractic Physician [employer] [facility], [facility] Main Line DSN/Comm: [phone] / [phone] 09/05/24 11:10:24 Extracted from:Title: Optometry- acute Author: LUH CARBAJAL, OD, Optometry Date: 08/24/24 1. O cular pain, left eye Discussed findings with patient. No obvious abrasion, fb, edema, injection, c oncerns for infection. Discussed that punctate keratitis or allergic response might be causing irritation/pain. Discussed tx options ranging from self- monitoring to PFATs to steroid, pt declined treatment at present due to vast improvement from yesterday to today. Educated that we can improve vision to 20/20 with PH, likely vision is reduced due to refraction- edu to rtc after s ymptoms resolve and will completed manifest. Discussed to increase Restasis to BID for best result. Patient edu to r tc if w orsening, otherwise, will evaluate at CEE/spec check in near future. Pt agreed to all. Recommend: r tc i f symptoms worsen, or once resolved for s pec eval. I assessed the member's ocular health status and determined that it does not affect his/her ability to perform duties of assigned [employer], meet deployment standards, meet retention standards, or complete all components of the Fitness Assessment. LUH CARBAJAL, Lt Col, OD [employer] Supervisor Talib KEYS, [place] Extracted from:Title: FTR - Low back pain Author: BINU LIN DC Date: 08/23/24 D iagnosis: 1 . R adiculopathy, lumbar region Comment: Ordered: Manual Therapy Tqs 1/> Regions Each 15 Minutes [id number]; 08/23/2024 13:50:00 CDT, 59, Spinal stenosis, lumbar region without neurogenic claudication Radiculopathy, lumbar region Pain in left hip Segmental and somatic dysfunction of lumbar region Segmental and somatic dysfunction of thoracic region ... ? Chiropractic Manipulative Tx Spinal 3-4 Regions [id number]; 08/23/2024 13:50:00 CDT, Spinal stenosis, lumbar region without neurogenic claudication Radiculopathy, lumbar region Pain in left hip Segmental and somatic dysfunction of lumbar region Segmental and somatic dysfunction of thoracic region Seg... D iagnosis: 2 . S ryne stenosis, lumbar region without neurogenic claudication Comment: Ordered: Manual Therapy Tqs 1/> Regions Each 15 Minutes [id number]; 08/23/2024 13:50:00 CDT, 59, Spinal stenosis, lumbar region without neurogenic claudication Radiculopathy, lumbar region Pain in left hip Segmental and somatic dysfunction of lumbar region Segmental and somatic dysfunction of thoracic region ... ? Chiropractic Manipulative Tx Spinal 3-4 Regions [id number]; 08/23/2024 13:50:00 CDT, Spinal stenosis, lumbar region without neurogenic claudication Radiculopathy, lumbar region Pain in left hip Segmental and somatic dysfunction of lumbar region Segmental and somatic dysfunction of thoracic region Seg... D iagnosis: 3 . P ain in left hip Comment: Ordered: Manual Therapy Tqs 1/> Regions Each 15 Minutes [id number]; 08/23/2024 13:50:00 CDT, 59, Spinal stenosis, lumbar region without neurogenic claudication Radiculopathy, lumbar region Pain in left hip Segmental and somatic dysfunction of lumbar region Segmental and somatic dysfunction of thoracic region ... ? Chiropractic Manipulative Tx Spinal 3-4 Regions [id number]; 08/23/2024 13:50:00 CDT, Spinal stenosis, lumbar region without neurogenic claudication Radiculopathy, lumbar region Pain in left hip Segmental and somatic dysfunction of lumbar region Segmental and somatic dysfunction of thoracic region Seg... D iagnosis: 4 . S egmental and somatic dysfunction of lumbar region Comment: Ordered: Manual Therapy Tqs 1/> Regions Each 15 Minutes [id number]; 08/23/2024 13:50:00 CDT, 59, Spinal stenosis, lumbar region without neurogenic claudication Radiculopathy, lumbar region Pain in left hip Segmental and somatic dysfunction of lumbar region Segmental and somatic dysfunction of thoracic region ... ? Chiropractic Manipulative Tx Spinal 3-4 Regions [id number]; 08/23/2024 13:50:00 CDT, Spinal stenosis, lumbar region without neurogenic claudication Radiculopathy, lumbar region Pain in left hip Segmental and somatic dysfunction of lumbar region Segmental and somatic dysfunction of thoracic region Seg... D iagnosis: 5 . S egmental and somatic dysfunction of thoracic region Comment: Ordered: Manual Therapy Tqs 1/> Regions Each 15 Minutes [id number]; 08/23/2024 13:50:00 CDT, 59, Spinal stenosis, lumbar region without neurogenic claudication Radiculopathy, lumbar region Pain in left hip Segmental and somatic dysfunction of lumbar region Segmental and somatic dysfunction of thoracic region ... ? Chiropractic Manipulative Tx Spinal 3-4 Regions [id number]; 08/23/2024 13:50:00 CDT, Spinal stenosis, lumbar region without neurogenic claudication Radiculopathy, lumbar region Pain in left hip Segmental and somatic dysfunction of lumbar region Segmental and somatic dysfunction of thoracic region Seg... D iagnosis: 6 . S egmental and somatic dysfunction of cervical region Comment: Ordered: Manual Therapy Tqs 1/> Regions Each 15 Minutes [id number]; 08/23/2024 13:50:00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 1 year Ordered: cycloSPORINE ophthalmic(Restasis 0.05% ophthalmic emulsion), 1 drop(s), Eye-Both, every 12 hr, # 60 EA, 11 total refill(s), Maintenance, 1 drop(s) Eye-Both every 12 hr, Pharmacy: [facility] [Not filled] Diagnosis: 1 . K eratoconjunctivitis sicca Comment: Ordered: Restasis 0.05% ophthalmic emulsion; 1 drop(s), Eye-Both, every 12 hr, # 60 EA, 11 total refill(s), Maintenance, 1 drop(s) Eye-Both every 12 hr, Pharmacy: [facility] [Not filled] ? Ophthalmological Medical Xm&Lizz Carey New Pt 1/> Vst [id number]; 02/07/2024 14:58:00 CDT ? Fitting Spectacles Xcpt Aphakia Monofocal [id number]; 02/07/2024 14:58:00 CDT ? Determination Refractive State [id number]; 02/07/2024 14:58:00 CDT D iagnosis: 2 . P resbyopia Comment: Ordered: Restasis 0.05% ophthalmic emulsion; 1 drop(s), Eye-Both, every 12 hr, # 60 EA, 11 total refill(s), Maintenance, 1 drop(s) Eye-Both every 12 hr, Pharmacy: [facility] [Not filled] ? Ophthalmological Medical &Lizz Carey New Pt / Vst [id number]; 02/07/2024 14:58:00 CDT ? Fitting Spectacles Xcpt Aphakia Monofocal [id number]; 02/07/2024 14:58:00 CDT ? Determination Refractive State [id number]; 02/07/2024 14:58:00 CDT End of Orders Extracted from:Title: Acute Optometry Office Visit Note [...] O rdered: Fundus Photography w/Interpretation + Report [id number]; 08/19/2022 08:44:00 EDT ? Ophthalmological Medical &Lizz [facility] [place] [id number]; 08/19/2022 08:44:00 EDT End of Orders Future Appointments Appointment Date: 11/28/2024 01:00:00 PM Scheduled Provider: BINU LIN DC [facility] Appointment Type: CHIRO FTR Appointment Date: 12/04/2024 08:00:00 AM Scheduled Provider: TANA LIN, PhD, Psychology Location: [id number] Appointment Type: BH FTR Appointment Date: 12/06/2024 12:40:00 PM Scheduled Provider: APRIL SELBY PA, Family Medicine Location: [id number] Appointment Type: REDJUAN PABLO FTR Appointment Date: 12/07/2024 03:00:00 PM Scheduled Provider: BINU LIN DC Location: [address] [place] [address] Appointment Type: CHIRO FTR Future Scheduled TestsRadiologyXR Spine Cervical 4 or 5 Views 07/31/24XR Spine Thoracic 4+ Views 07/31/24 11/23/[address] [place] [address] Olu Assessment and Plan Extracted from:Title : FTR - back pain Author: BINU LIN DC Date: 11/02/24 D iagnosis: 1 . S ryne stenosis, lumbar region without neurogenic claudication Comment: Ordered: Manual Therapy Tqs 1/> Regions Each 15 Minutes [id number]; 11/02/2024 13:23:00 CDT, 59, Spinal stenosis, lumbar region without neurogenic claudication Radiculopathy, lumbar region Pain in left hip Segmental and somatic dysfunction of lumbar region ? Chiropractic Manipulative Tx Spinal 3-4 Regions [id number]; 11/02/2024 13:23:00 CDT, Spinal stenosis, lumbar region without neurogenic claudication Radiculopathy, lumbar region Pain in left hip Segmental and somatic dysfunction of lumbar region Segmental and somatic dysfunction of thoracic region Seg... D iagnosis: 2 . R adiculopathy, lumbar region Comment: Ordered: Manual Therapy Tqs 1/> Regions Each 15 Minutes [id number]; 11/02/2024 13:23:00 CDT, 59, Spinal stenosis, lumbar region without neurogenic claudication Radiculopathy, lumbar region Pain in left hip Segmental and somatic dysfunction of lumbar region ? Chiropractic Manipulative Tx Spinal 3-4 Regions [id number]; 11/02/2024 13:23:00 CDT, Spinal stenosis, lumbar region without neurogenic claudication Radiculopathy, lumbar region Pain in left hip Segmental and somatic dysfunction of lumbar region Segmental and somatic dysfunction of thoracic region Seg... D iagnosis: 3 . P ain in left hip Comment: Ordered: Manual Therapy Tqs 1/> Regions Each 15 Minutes [id number]; 11/02/2024 13:23:00 CDT, 59, Spinal stenosis, lumbar region without neurogenic claudication Radiculopathy, lumbar region Pain in left hip Segmental and somatic dysfunction of lumbar region ? Chiropractic Manipulative Tx Spinal 3-4 Regions [id number]; 11/02/2024 13:23:00 CDT, Spinal stenosis, lumbar region without neurogenic claudication Radiculopathy, lumbar region Pain in left hip Segmental and somatic dysfunction of lumbar region Segmental and somatic dysfunction of thoracic region Seg... D iagnosis: 4 . S egmental and somatic dysfunction of lumbar region Comment: Ordered: Manual Therapy Tqs 1/> Regions Each 15 Minutes [id number]; 11/02/2024 13:23:00 CDT, 59, Spinal stenosis, lumbar region without neurogenic claudication Radiculopathy, lumbar region Pain in left hip Segmental and somatic dysfunction of lumbar region ? Chiropractic Manipulative Tx Spinal 3-4 Regions [id number]; 11/02/2024 13:23:00 CDT, Spinal stenosis, lumbar region without neurogenic claudication Radiculopathy, lumbar region Pain in left hip Segmental and somatic dysfunction of lumbar region Segmental and somatic dysfunction of thoracic region Seg... D iagnosis: 5 . S egmental and somatic dysfunction of thoracic region Comment: Ordered: Chiropractic Manipulative Tx Spinal 3-4 Regions [id number]; 11/02/2024 13:23:00 CDT, Spinal stenosis, lumbar region without neurogenic claudication Radiculopathy, lumbar region Pain in left hip Segmental and somatic dysfunction of lumbar region Segmental and somatic dysfunction of thoracic region Seg... D iagnosis: 6 . S egmental and somatic dysfunction of cervical region Comment: Ordered: Chiropractic Manipulative Tx Spinal 3-4 Regions [id number]; 11/02/2024 13:23:00 CDT, Spinal stenosis, lumbar region without neurogenic [...] arked by d ecreased intensity of pain i ncreased ROM d ecreased muscular hypertonicity s /p chiropractic treatment. Physician Signature //SIGNED// Dr. Binu Lin DC, RMSK Chiropractic Physician [address] [facility] Main Line DSN/Comm: [phone] / [phone] 11/02/24 13:22:10 Extracted from:Title: [facility] HL Author: LORRAINE NAQVI PA Date: 11/01/24 1. D ifficulty hearing *Virtual Appt: C onfirmed full name and before discussion* 48 Years o ld M r eports difficulty hearing x 2 months. Reports tinnitus. - Audiology referral placed - F/u o nce audiogram completed or sooner if needed Ordered: Referral Request 2.0 - DoD Medications reconciled. Pt verbalized understanding and agreement. LORRAINE NAQVI E, 1st Lt, [place] [address] Extracted from:Title: FTR - back pain Author: BINU LIN DC Date: 10/26/24 D iagnosis: 1 . R adiculopathy, lumbar region Comment: Ordered: Manual Therapy Tqs 1/> Regions Each 15 Minutes [id number]; 10/26/2024 15:27:00 CDT, 59, Radiculopathy, lumbar region Spinal stenosis, lumbar region without neurogenic claudication Pain in left hip Segmental and somatic dysfunction of lumbar region ? Chiropractic Manipulative Tx Spinal 3-4 Regions [id number]; 10/26/2024 15:27:00 CDT, Radiculopathy, lumbar region Spinal stenosis, lumbar region without neurogenic claudication Pain in left hip Segmental and somatic dysfunction of lumbar region Segmental and somatic dysfunction of thoracic region Seg... D iagnosis: 2 . S ryne stenosis, lumbar region without neurogenic claudication Comment: Ordered: Manual Therapy Tqs 1/> Regions Each 15 Minutes [id number]; 10/26/2024 15:27:00 CDT, 59, Radiculopathy, lumbar region Spinal stenosis, lumbar region without neurogenic claudication Pain in left hip Segmental and somatic dysfunction of lumbar region ? Chiropractic Manipulative Tx Spinal 3-4 Regions [id number]; 10/26/2024 15:27:00 CDT, Radiculopathy, lumbar region Spinal stenosis, lumbar region without neurogenic claudication Pain in left hip Segmental and somatic dysfunction of lumbar region Segmental and somatic dysfunction of thoracic region Seg... D iagnosis: 3 . P ain in left hip Comment: Ordered: Manual Therapy Tqs 1/> Regions Each 15 Minutes [id number]; 10/26/2024 15:27:00 CDT, 59, Radiculopathy, lumbar region Spinal stenosis, lumbar region without neurogenic claudication Pain in left hip Segmental and somatic dysfunction of lumbar region ? Chiropractic Manipulative Tx Spinal 3-4 Regions [id number]; 10/26/2024 15:27:00 CDT, Radiculopathy, lumbar region Spinal stenosis, lumbar region without neurogenic claudication Pain in left hip Segmental and somatic dysfunction of lumbar region Segmental and somatic dysfunction of thoracic region Seg... D iagnosis: 4 . S egmental and somatic dysfunction of lumbar region Comment: Ordered: Manual Therapy Tqs 1/> Regions Each 15 Minutes [id number]; 10/26/2024 15:27:00 CDT, 59, Radiculopathy, lumbar region Spinal stenosis, lumbar region without neurogenic claudication Pain in left hip Segmental and somatic dysfunction of lumbar region ? Chiropractic Manipulative Tx Spinal 3-4 Regions [id number]; 10/26/2024 15:27:00 CDT, Radiculopathy, lumbar region Spinal stenosis, lumbar region without neurogenic claudication Pain in left hip Segmental and somatic dysfunction of lumbar region Segmental and somatic dysfunction of thoracic region Seg... D iagnosis: 5 . S egmental and somatic dysfunction of thoracic region Comment: Ordered: Chiropractic Manipulative Tx Spinal 3-4 Regions [id number]; 10/26/2024 15:27:00 CDT, Radiculopathy, lumbar region Spinal stenosis, lumbar region without neurogenic claudication Pain in left hip Segmental and somatic dysfunction of lumbar region Segmental and somatic dysfunction of thoracic region Seg... D iagnosis: 6 . S egmental and somatic dysfunction of cervical region Comment: Ordered: Chiropractic Manipulative Tx Spinal 3-4 Regions [id number]; 10/26/2024 15:27:00 CDT, Radiculopathy, lumbar region Spinal stenosis, lumbar [...] arked by d ecreased intensity of pain i ncreased ROM d ecreased muscular hypertonicity s /p chiropractic treatment. Physician Signature //SIGNED// Dr. 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 with symptoms consistent with depression including depressed mood, anhedonia, sleep changes, fatigue/low energy, concentration difficulties, and sense of worthlessness present with chronic pain associated with never oblation in his back for past 3 years. Pt also reports excessive worry that is difficult to control, increased irritability, and muscle tension. Pt's symptoms reportedly negatively impact performance at work and are noticeable by coworkers and by family. Pt has h as past history and diagnosis of PTSD from deployment-related and childhood trauma both of which p t has received trauma-directed treatment in [id number] and reportedly symptoms are currently more manageable on a daily basis than d epressive symptoms. Pt's brother is retired and has reportedly been diagnosed with b ipolar, PTSD, s ubstance abuse, TBI, and has attempted suicide. Pt's mother also reportedly struggles with anxiety. Pt's symptoms appear to be best described by Major Depressive Disorder with anxious distress with history of PTSD. Pt is reportedly undergoing a medical board process for t he nerve oblation and is requesting t reatment in order to better manage s ymptoms of depression and anxiety. Pt amenable to both CBT group (to begin 18-Sep-24) and individual therapy. ? Consulted with Dr. Liu regarding pt beginning CBT group on 18-Sep-24 versus 11-Sep-24 and next follow-up individual a ppointment scheduled for 04-Oct-24. [3] [4] 1. M ajor depressive disorder, single episode, mild Prognosis: Fair Benefits, Risks, Alternatives Discussed: Yes Treatment Plan: Practice good sleep hygiene, Referral to individual, family or group therapy Number of Visits Expected: 9-12 Target Symptoms: Anxiety, Depression, Trauma Goals of Treatment: Improve overall functioning, Decrease in target symptoms Methods of Monitoring Outcomes: Reduced KRZYSZTOF-7 score, Reduced PCL-5 score, Reduced PHQ-9 score Evaluation Type: By complexity Treatment Planning Requirements: 1) Developed treatment plan collaboratively with patient, with agreement on plan of care and goals, 2) Patient agrees to attend appointments, engage in treatment, discuss any concerns in order to meet treatment goals, 3) Provider will leverage patient strengths and limit potential barriers to treatment Extracted from:Title: FTR - back pain Author: BINU LIN DC Date: 10/09/24 D iagnosis: 1 . R adiculopathy, lumbar region Comment: Ordered: Manual Therapy Tqs 1/> Regions Each 15 Minutes [id number]; 10/09/2024 13:28:00 CDT, 59, Radiculopathy, lumbar region Spinal stenosis, lumbar region without neurogenic claudication Segmental and somatic dysfunction of sacral region Segmental and somatic dysfunction of lumbar region D iagnosis: 2 . S ryne stenosis, lumbar region without neurogenic claudication Comment: Ordered: Manual Therapy Tqs 1/> Regions Each 15 Minutes [id number]; 10/09/2024 13:28:00 CDT, 59, Radiculopathy, lumbar region Spinal stenosis, lumbar region without neurogenic claudication Segmental and somatic dysfunction of sacral region Segmental and somatic dysfunction of lumbar region ? Chiropractic Manipulative Tx Spinal 3-4 Regions [id number]; 10/09/2024 13:28:00 CDT, Spinal stenosis, lumbar region without neurogenic claudication Segmental and somatic dysfunction of sacral region Segmental and somatic dysfunction of thoracic region Segmental and somatic dysfunction of lumbar region D iagnosis: 3 . P ain in left hip Comment: Ordered: Chiropractic Manipulative Therapy, Extraspinal [id number]; 10/09/2024 13:28:00 CDT, Pain in left hip D iagnosis: 4 . S egmental and somatic dysfunction of lumbar region Comment: Ordered: Manual Therapy Tqs 1/> Regions Each 15 Minutes [id number]; 10/09/2024 13:28:00 CDT, 59, Radiculopathy, lumbar region Spinal stenosis, lumbar region without neurogenic claudication Segmental and somatic dysfunction of sacral region Segmental and somatic dysfunction of lumbar region ? Chiropractic Manipulative Tx Spinal 3-4 Regions [id number]; 10/09/2024 13:28:00 CDT, Spinal stenosis, lumbar region without neurogenic claudication Segmental and somatic dysfunction of sacral region Segmental and somatic dysfunction of thoracic region Segmental and somatic dysfunction of lumbar region D iagnosis: 5 . S egmental and somatic dysfunction of thoracic region Comment: Ordered: Chiropractic Manipulative Tx Spinal 3-4 Regions [id number]; 10/09/2024 13:28:00 CDT, Spinal stenosis, lumbar region without neurogenic claudication Segmental and somatic dysfunction of sacral region Segmental and somatic dysfunction of thoracic region Segmental and somatic dysfunction of lumbar region D iagnosis: 6 . S egmental and somatic dysfunction of sacral region Comment: Ordered: Manual Therapy Tqs 1/> Regions Each 15 Minutes [id number]; 10/09/2024 13:28:00 CDT, 59, Radiculopathy, lumbar region Spinal stenosis, lumbar region without neurogenic claudication Segmental and somatic dysfunction of sacral region Segmental and somatic dysfunction of lumbar region ? Chiropractic Manipulative Tx Spinal 3-4 Regions [id number]; 10/09/2024 13:28:00 CDT, Spinal stenosis, lumbar region without neurogenic claudication Segmental and somatic dysfunction of sacral region Segmental and somatic dysfunction of thoracic region Segmental and somatic dysfunction of lumbar region End of Orders Chiropractic Treatment Chiropractic Diversified Adjustments S upine to C/S P safia T/S, S jose posture to Ilium, SI and L/S A T Performed attended, prone, Ray Flexion/Distraction (12min) to L/S, Protocol II, -59 Distinct separate procedure Therapeutic Modalities None Exercises Continue exercises as prescribed in treatment plan. Final Disposition Patient responded w hortencia to care m arked by d ecreased intensity of pain i ncreased ROM d ecreased muscular hypertonicity s /p chiropractic treatment. Physician Signature //SIGNED// Dr. Binu Lin DC, [facility] Chiropractic Physician [address] [employer] Natalie Mayers [facility] Main Line DSN/Comm: [id number] / [phone] 10/09/24 13:00:52 Extracted from:Title: BEH Therapist OP Follow Up Note Author: TANA LIN, PhD, Psychology Date: 10/04/24 48 y/o , , male, [place] assigned to [facility] [facility] and working as [employer] self-referred to [facility] with symptoms consistent with depression including depressed mood, anhedonia, sleep changes, fatigue/low energy, concentration difficulties, and sense of worthlessness present with chronic pain associated with never oblation in his back for past 3 years. Pt also reports excessive worry that is difficult to control, increased irritability, and muscle tension. Pt's symptoms reportedly negatively impact performance at work and are noticeable by coworkers and by family. Pt has h as past history and diagnosis of PTSD from deployment-related and childhood trauma both of which p sonali has received trauma-directed treatment in [id number] and reportedly symptoms are currently more manageable on a daily basis than d epressive symptoms. Pt's brother is retired and has reportedly been diagnosed with b ipolar, PTSD, s ubstance abuse, TBI, and has attempted suicide. Pt's mother also reportedly struggles with anxiety. Pt's symptoms appear to be best described by Major Depressive Disorder with anxious distress with history of PTSD. Pt is reportedly undergoing a medical board process for t he nerve oblation and is requesting t reatment in order to better manage s ymptoms of depression and anxiety. Pt amenable to both CBT group (to begin 18-Sep-24) and individual therapy. ? Consulted with Dr. Liu regarding pt beginning CBT group on 18-Sep-24 versus 11-Sep-24 and next follow-up individual a ppointment scheduled for 04-Oct-24. [3] 1. M ajcyril depressive disorder, single episode, mild with anxious distress -History of PTSD Prognosis: Fair Benefits, Risks, Alternatives Discussed: Yes Treatment Plan: Practice good sleep hygiene, Referral to individual, family or group therapy Number of Visits Expected: 9-12 Target Symptoms: Anxiety, Depression, Trauma Goals of Treatment: Improve overall functioning, Decrease in target symptoms Methods of Monitoring Outcomes: Reduced KRZYSZTOF-7 score, Reduced PCL-5 score, Reduced PHQ-9 score Evaluation Type: By complexity Treatment Planning Requirements: 1) Developed treatment plan collaboratively with patient, with agreement on plan of care and goals, 2) Patient agrees to attend appointments, engage in treatment, discuss any concerns in order to meet treatment goals, 3) Provider will leverage patient strengths and limit potential barriers to treatment Extracted from:Title: FTR - low back and hip pain Author: BINU LIN DC Date: 09/25/24 D iagnosis: 1 . R adiculopathy, lumbar region Comment: Ordered: Manual Therapy Tqs 1/> Regions Each 15 Minutes [id number]; 09/25/2024 13:52:00 CDT, 59, Radiculopathy, lumbar region Spinal stenosis, lumbar region without neurogenic claudication Segmental and somatic dysfunction of sacral region Segmental and somatic dysfunction of lumbar region ? Chiropractic Manipulative Tx Spinal 3-4 Regions [id number]; 09/25/2024 13:52:00 CDT, Radiculopathy, lumbar region Spinal stenosis, lumbar region without neurogenic claudication Segmental and somatic dysfunction of sacral region Segmental and somatic dysfunction of lumbar region Segmental and somatic dy... D iagnosis: 2 . S ryne stenosis, lumbar region without neurogenic claudication Comment: Ordered: Manual Therapy Tqs 1/> Regions Each 15 Minutes [id number]; 09/25/2024 13:52:00 CDT, 59, Radiculopathy, lumbar region Spinal stenosis, lumbar region without neurogenic claudication Segmental and somatic dysfunction of sacral region Segmental and somatic dysfunction of lumbar region ? Chiropractic Manipulative Tx Spinal 3-4 Regions [id number]; 09/25/2024 13:52:00 CDT, Radiculopathy, lumbar region Spinal stenosis, lumbar region without neurogenic claudication Segmental and somatic dysfunction of sacral region Segmental and somatic dysfunction of lumbar region Segmental and somatic dy... D iagnosis: 3 . S egmental and somatic dysfunction of sacral region Comment: Ordered: Manual Therapy Tqs 1/> Regions Each 15 Minutes [id number]; 09/25/2024 13:52:00 CDT, 59, Radiculopathy, lumbar region Spinal stenosis, lumbar region without neurogenic claudication Segmental and somatic dysfunction of sacral region Segmental and somatic dysfunction of lumbar region ? Chiropractic Manipulative Tx Spinal 3-4 Regions [id number]; 09/25/2024 13:52:00 CDT, Radiculopathy, lumbar region Spinal stenosis, lumbar region without neurogenic claudication Segmental and somatic dysfunction of sacral region Segmental and somatic dysfunction of lumbar region Segmental and somatic dy... D iagnosis: 4 . S egmental and somatic dysfunction of lumbar region Comment: Ordered: Manual Therapy Tqs 1/> Regions Each 15 Minutes [id number]; 09/25/2024 13:52:00 CDT, 59, Radiculopathy, lumbar region Spinal stenosis, lumbar region without neurogenic claudication Segmental and somatic dysfunction of sacral region Segmental and somatic dysfunction of lumbar region ? Chiropractic Manipulative Tx Spinal 3-4 Regions [id number]; 09/25/2024 13:52:00 CDT, Radiculopathy, lumbar region Spinal stenosis, lumbar region without neurogenic claudication Segmental and somatic dysfunction of sacral region Segmental and somatic dysfunction of lumbar region Segmental and somatic dy... D iagnosis: 5 . S egmental and somatic dysfunction of thoracic region Comment: Ordered: Chiropractic Manipulative Tx Spinal 3-4 Regions [id number]; 09/25/2024 13:52:00 CDT, Radiculopathy, lumbar region Spinal stenosis, lumbar region without neurogenic claudication Segmental and somatic dysfunction of sacral region Segmental and somatic dysfunction of lumbar region Segmental and somatic dy... D iagnosis: 6 . S egmental and somatic dysfunction of cervical region Comment: Ordered: Chiropractic Manipulative Tx Spinal 3-4 Regions [id number]; 09/25/2024 13:52:00 CDT, Radiculopathy, lumbar region Spinal stenosis, lumbar region without neurogenic claudication Segmental and somatic dysfunction of sacral region Segmental and somatic dysfunction of lumbar region Segmental and somatic dy... End of Orders Chiropractic Treatment Chiropractic Diversified [...] arked by d ecreased intensity of pain i ncreased ROM d ecreased muscular hypertonicity s /p chiropractic treatment. Physician Signature //SIGNED// Dr. Binu Lin DC, [facility] Chiropractic Physician [facility] [employer] [facility] Main Line DSN/Comm: [id number] / [phone] 09/25/24 13:52:13 Extracted from:Title: FTR - Low back pain Author: BINU LIN DC Date: 09/12/24 D iagnosis: 1 . S ryne stenosis, lumbar region without neurogenic claudication Comment: Ordered: Manual Therapy Tqs 1/> Regions Each 15 Minutes [id number]; 09/12/2024 13:37:00 CDT, 59, Radiculopathy, lumbar region Spinal stenosis, lumbar region without neurogenic claudication Segmental and somatic dysfunction of sacral region Segmental and somatic dysfunction of lumbar region ? Chiropractic Manipulative Tx Spinal 3-4 Regions [id number]; 09/12/2024 13:37:00 CDT, Radiculopathy, lumbar region Spinal stenosis, lumbar region without neurogenic claudication Segmental and somatic dysfunction of sacral region Segmental and somatic dysfunction of lumbar region Segmental and somatic dy... D iagnosis: 2 . S egmental and somatic dysfunction of sacral region Comment: Ordered: Manual Therapy Tqs 1/> Regions Each 15 Minutes [id number]; 09/12/2024 13:37:00 CDT, 59, Radiculopathy, lumbar region Spinal stenosis, lumbar region without neurogenic claudication Segmental and somatic dysfunction of sacral region Segmental and somatic dysfunction of lumbar region ? Chiropractic Manipulative Tx Spinal 3-4 Regions [id number]; 09/12/2024 13:37:00 CDT, Radiculopathy, lumbar region Spinal stenosis, lumbar region without neurogenic claudication Segmental and somatic dysfunction of sacral region Segmental and somatic dysfunction of lumbar region Segmental and somatic dy... D iagnosis: 3 . S egmental and somatic dysfunction of lumbar region Comment: Ordered: Manual Therapy Tqs 1/> Regions Each 15 Minutes [id number]; 09/12/2024 13:37:00 CDT, 59, Radiculopathy, lumbar region Spinal stenosis, lumbar region without neurogenic claudication Segmental and somatic dysfunction of sacral region Segmental and somatic dysfunction of lumbar region ? Chiropractic Manipulative Tx Spinal 3-4 Regions [id number]; 09/12/2024 13:37:00 CDT, Radiculopathy, lumbar region Spinal stenosis, lumbar region without neurogenic claudication Segmental and somatic dysfunction of sacral region Segmental and somatic dysfunction of lumbar region Segmental and somatic dy... D iagnosis: 4 . S egmental and somatic dysfunction of thoracic region Comment: Ordered: Chiropractic Manipulative Tx Spinal 3-4 Regions [id number]; 09/12/2024 13:37:00 CDT, Radiculopathy, lumbar region Spinal stenosis, lumbar region without neurogenic claudication Segmental and somatic dysfunction of sacral region Segmental and somatic dysfunction of lumbar region Segmental and somatic dy... D iagnosis: 5 . R adiculopathy, lumbar region Comment: Ordered: Manual Therapy Tqs 1/> Regions Each 15 Minutes [id number]; 09/12/2024 13:37:00 CDT, 59, Radiculopathy, lumbar region Spinal stenosis, lumbar region without neurogenic claudication Segmental and somatic dysfunction of sacral region Segmental and somatic dysfunction of lumbar region ? Chiropractic Manipulative Tx Spinal 3-4 Regions [id number]; 09/12/2024 13:37:00 CDT, Radiculopathy, lumbar region Spinal stenosis, lumbar region without neurogenic claudication Segmental and somatic dysfunction of sacral region Segmental and somatic dysfunction of lumbar region Segmental and somatic dy... D iagnosis: S egmental and somatic dysfunction of cervical region Comment: Ordered: Chiropractic Manipulative Tx Spinal 3-4 Regions [id number]; 09/12/2024 13:37:00 CDT, Radiculopathy, lumbar region Spinal stenosis, lumbar region without neurogenic claudication Segmental and somatic dysfunction of sacral region Segmental and somatic dysfunction of lumbar region Segmental and somatic dy... End of Orders Chiropractic Treatment Chiropractic Diversified [...] arked by d ecreased intensity of pain i ncreased ROM _ ? s /p chiropractic treatment. Physician Signature //SIGNED// Dr. Binu Lin DC, [facility] Chiropractic Physician [address] [employer] Natalie Mayers [facility] Main Line DSN/Comm: [phone] / [phone] 09/12/24 13:30:18 Extracted from:Title: BEH Therapist OP Initial Visit Note Author: TANA LIN, PhD, Psychology Date: 09/10/24 48 y/o , , male, [place] assigned to 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 with symptoms consistent with depression including depressed mood, anhedonia, sleep changes, fatigue/low energy, concentration difficulties, and sense of worthlessness present with chronic pain associated with never oblation in his back for past 3 years. Pt also reports excessive worry that is difficult to control, increased irritability, and muscle tension. Pt's symptoms reportedly negatively impact performance at work and are noticeable by coworkers and by family. Pt has h as past history and diagnosis of PTSD from deployment-related and childhood trauma both of which p t has received trauma-directed treatment in [id number] and reportedly symptoms are currently more manageable on a daily basis than d epressive symptoms. Pt's brother is retired and has reportedly been diagnosed with b ipolar, PTSD, s ubstance abuse, TBI, and has attempted suicide. Pt's mother also reportedly struggles with anxiety. Pt's symptoms appear to be best described by Major Depressive Disorder with anxious distress with history of PTSD. Pt is reportedly undergoing a medical board process for t he nerve oblation and is requesting t reatment in order to better manage s ymptoms of depression and anxiety. Pt amenable to both CBT group (to begin 18-Sep-24) and individual therapy. ? Consulted with Dr. Liu regarding pt beginning CBT group on 18-Sep-24 versus 11-Sep-24 and next follow-up individual a ppointment scheduled for 04-Oct-24. 1. M ajor depressive disorder, single episode, mild with anxious distress -History of PTSD Prognosis: Fair Benefits, Risks, Alternatives Discussed: Yes Treatment Plan: Practice good sleep hygiene, Referral to individual, family or group therapy Number of Visits Expected: 9-12 Target Symptoms: Anxiety, Depression, Trauma Goals of Treatment: Improve overall functioning, Decrease in target symptoms Methods of Monitoring Outcomes: Reduced KRZYSZTOF-7 score, Reduced PCL-5 score, Reduced PHQ-9 score Evaluation Type: By complexity Treatment Planning Requirements: 1) Developed treatment plan collaboratively with patient, with agreement on plan of care and goals, 2) Patient agrees to attend appointments, engage in treatment, discuss any concerns in order to meet treatment goals, 3) Provider will leverage patient strengths and limit potential barriers to treatment Extracted from:Title: FTR - Low back pain Author: BINU LIN DC Date: 09/05/24 D iagnosis: 1 . S ryne stenosis, lumbar region without neurogenic claudication Comment: Ordered: Manual Therapy Tqs 1/> Regions Each 15 Minutes [id number]; 09/05/2024 11:53:00 CDT, 59, Spinal stenosis, lumbar region without neurogenic claudication Radiculopathy, lumbar region Pain in left hip Segmental and somatic dysfunction of sacral region Segmental and somatic dysfunction of lumbar region ? Chiropractic Manipulative Tx Spinal 3-4 Regions [id number]; 09/05/2024 11:53:00 CDT, Spinal stenosis, lumbar region without neurogenic claudication Radiculopathy, lumbar region Pain in left hip Segmental and somatic dysfunction of sacral region Segmental and somatic dysfunction of lumbar region Segme... D iagnosis: 2 . R adiculopathy, lumbar region Comment: Ordered: Manual Therapy Tqs 1/> Regions Each 15 Minutes [id number]; 09/05/2024 11:53:00 CDT, 59, Spinal stenosis, lumbar region without neurogenic claudication Radiculopathy, lumbar region Pain in left hip Segmental and somatic dysfunction of sacral region Segmental and somatic dysfunction of lumbar region ? Chiropractic Manipulative Tx Spinal 3-4 Regions [id number]; 09/05/2024 11:53:00 CDT, Spinal stenosis, lumbar region without neurogenic claudication Radiculopathy, lumbar region Pain in left hip Segmental and somatic dysfunction of sacral region Segmental and somatic dysfunction of lumbar region Segme... D iagnosis: 3 . P ain in left hip Comment: Ordered: Manual Therapy Tqs 1/> Regions Each 15 Minutes [id number]; 09/05/2024 11:53:00 CDT, 59, Spinal stenosis, lumbar region without neurogenic claudication Radiculopathy, lumbar region Pain in left hip Segmental and somatic dysfunction of sacral region Segmental and somatic dysfunction of lumbar region ? Chiropractic Manipulative Tx Spinal 3-4 Regions [id number]; 09/05/2024 11:53:00 CDT, Spinal stenosis, lumbar region without neurogenic claudication Radiculopathy, lumbar region Pain in left hip Segmental and somatic dysfunction of sacral region Segmental and somatic dysfunction of lumbar region Segme... D iagnosis: 4 . S egmental and somatic dysfunction of sacral region Comment: Ordered: Manual Therapy Tqs 1/> Regions Each 15 Minutes [id number]; 09/05/2024 11:53:00 CDT, 59, Spinal stenosis, lumbar region without neurogenic claudication Radiculopathy, lumbar region Pain in left hip Segmental and somatic dysfunction of sacral region Segmental and somatic dysfunction of lumbar region ? Chiropractic Manipulative Tx Spinal 3-4 Regions [id number]; 09/05/2024 11:53:00 CDT, Spinal stenosis, lumbar region without neurogenic claudication Radiculopathy, lumbar region Pain in left hip Segmental and somatic dysfunction of sacral region Segmental and somatic dysfunction of lumbar region Segme... D iagnosis: 5 . S egmental and somatic dysfunction of lumbar region Comment: Ordered: Manual Therapy Tqs 1/> Regions Each 15 Minutes [id number]; 09/05/2024 11:53:00 CDT, 59, Spinal stenosis, lumbar region without neurogenic claudication Radiculopathy, lumbar region Pain in left hip Segmental and somatic dysfunction of sacral region Segmental and somatic dysfunction of lumbar region ? Chiropractic Manipulative Tx Spinal 3-4 Regions [id number]; 09/05/2024 11:53:00 CDT, Spinal stenosis, lumbar region without neurogenic claudication Radiculopathy, lumbar region Pain in left hip Segmental and somatic dysfunction of sacral region Segmental and somatic dysfunction of lumbar region Segme... D iagnosis: 6 . S egmental and somatic dysfunction of thoracic region Comment: Ordered: Chiropractic Manipulative Tx Spinal 3-4 Regions [id number]; 09/05/2024 11:53:00 CDT, Spinal stenosis, lumbar region without neurogenic claudication Radiculopathy, lumbar region Pain in left hip Segmental and somatic dysfunction of sacral region Segmental and somatic dysfunction of lumbar region Segme... D iagnosis: 7 . S egmental and somatic dysfunction of cervical region Comment: Ordered: Chiropractic Manipulative Tx Spinal 3-4 Regions [id number]; 09/05/2024 11:53:00 CDT, Spinal stenosis, lumbar region without neurogenic claudication Radiculopathy, lumbar region Pain in left hip Segmental and somatic dysfunction of sacral region Segmental and somatic dysfunction of lumbar region Segme... End of Orders C hiropractic Treatment Chiropractic Diversified Adjustments S upine to C/S P safia T/S, S jose posture to Ilium, SI and L/S A T Performed attended, prone, Ray Flexion/Distraction (12min) to L/S, Protocol II, -59 Distinct separate procedure Therapeutic Modalities None Exercises Continue exercises as prescribed in treatment plan. Final Disposition Patient responded f air to care m arked by palomo veronica decreased intensity of pain i ncreased ROM? s /p chiropractic treatment. Physician Signature //SIGNED// Dr. Binu Lin DC, [facility] Chiropractic Physician [address] [employer] Natalie Mayers [facility] Main Line DSN/Comm: [phone] / [phone] 09/05/24 11:10:24 Extracted from:Title: Optometry- acute Author: LUH CARBAJAL, OD, Optometry Date: 08/24/24 1. O cular pain, left eye Discussed findings with patient. No obvious abrasion, fb, edema, injection, c oncerns for infection. Discussed that punctate keratitis or allergic response might be causing irritation/pain. Discussed tx options ranging from self- monitoring to PFATs to steroid, pt declined treatment at present due to vast improvement from yesterday to today. Educated that we can improve vision to 20/20 with PH, likely vision is reduced due to refraction- edu to rtc after s ymptoms resolve and will completed manifest. Discussed to increase Restasis to BID for best result. Patient edu to r tc if w orsening, otherwise, will evaluate at [facility]/spec check in near future. Pt agreed to all. Recommend: r nain i f symptoms worsen, or once resolved for s pec eval. I assessed the member's ocular health status and determined that it does not affect his/her ability to perform duties of assigned [employer]SC, meet deployment standards, meet retention standards, or complete all components of the Fitness Assessment. LUH CARBAJAL, Lt Col, OD Subassembly Supervisor Talib [place], [place] Extracted from:Title: FTR - Low back pain Author: BINU LIN DC Date: 08/23/24 D iagnosis: 1 . R adiculopathy, lumbar region Comment: Ordered: Manual Therapy Tqs 1/> Regions Each 15 Minutes [id number]; 08/23/2024 13:50:00 CDT, 59, Spinal stenosis, lumbar region without neurogenic claudication Radiculopathy, lumbar region Pain in left hip Segmental and somatic dysfunction of lumbar region Segmental and somatic dysfunction of thoracic region ... ? Chiropractic Manipulative Tx Spinal 3-4 Regions [id number]; 08/23/2024 13:50:00 CDT, Spinal stenosis, lumbar region without neurogenic claudication Radiculopathy, lumbar region Pain in left hip Segmental and somatic dysfunction of lumbar region Segmental and somatic dysfunction of thoracic region Seg... D iagnosis: 2 . S ryne stenosis, lumbar region without neurogenic claudication Comment: Ordered: Manual Therapy Tqs 1/> Regions Each 15 Minutes [id number]; 08/23/2024 13:50:00 CDT, 59, Spinal stenosis, lumbar region without neurogenic claudication Radiculopathy, lumbar region Pain in left hip Segmental and somatic dysfunction of lumbar region Segmental and somatic dysfunction of thoracic region ... ? Chiropractic Manipulative Tx Spinal 3-4 Regions [id number]; 08/23/2024 13:50:00 CDT, Spinal stenosis, lumbar region without neurogenic claudication Radiculopathy, lumbar region Pain in left hip Segmental and somatic dysfunction of lumbar region Segmental and somatic dysfunction of thoracic region Seg... D iagnosis: 3 . P ain in left hip Comment: Ordered: Manual Therapy Tqs 1/> Regions Each 15 Minutes [id number]; 08/23/2024 13:50:00 CDT, 59, Spinal stenosis, lumbar region without neurogenic claudication Radiculopathy, lumbar region Pain in left hip Segmental and somatic dysfunction of lumbar region Segmental and somatic dysfunction of thoracic region ... ? Chiropractic Manipulative Tx Spinal 3-4 Regions [id number]; 08/23/2024 13:50:00 CDT, Spinal stenosis, lumbar region without neurogenic claudication Radiculopathy, lumbar region Pain in left hip Segmental and somatic dysfunction of lumbar region Segmental and somatic dysfunction of thoracic region Seg... D iagnosis: 4 . S egmental and somatic dysfunction of lumbar region Comment: Ordered: Manual Therapy Tqs 1/> Regions Each 15 Minutes [id number]; 08/23/2024 13:50:00 CDT, 59, Spinal stenosis, lumbar region without neurogenic claudication Radiculopathy, lumbar region Pain in left hip Segmental and somatic dysfunction of lumbar region Segmental and somatic dysfunction of thoracic region ... ? Chiropractic Manipulative Tx Spinal 3-4 Regions [id number]; 08/23/2024 13:50:00 CDT, Spinal stenosis, lumbar region without neurogenic claudication Radiculopathy, lumbar region Pain in left hip Segmental and somatic dysfunction of lumbar region Segmental and somatic dysfunction of thoracic region Seg... D iagnosis: 5 . S egmental and somatic dysfunction of thoracic region Comment: Ordered: Manual Therapy Tqs 1/> Regions Each 15 Minutes [id number]; 08/23/2024 13:50:00 CDT, 59, Spinal stenosis, lumbar region without neurogenic claudication Radiculopathy, lumbar region Pain in left hip Segmental and somatic dysfunction of lumbar region Segmental and somatic dysfunction of thoracic region ... ? Chiropractic Manipulative Tx Spinal 3-4 Regions [id number]; 08/23/2024 13:50:00 CDT, Spinal stenosis, lumbar region without neurogenic claudication Radiculopathy, lumbar region Pain in left hip Segmental and somatic dysfunction of lumbar region Segmental and somatic dysfunction of thoracic region Seg... D iagnosis: 6 . S egmental and somatic dysfunction of cervical region Comment: Ordered: Manual Therapy Tqs 1/> Regions Each 15 Minutes [id number]; 08/23/2024 13:50:00 CDT, 59, Spinal stenosis, lumbar region without neurogenic claudication Radiculopathy, lumbar region Pain in left hip Segmental and somatic dysfunction of lumbar region Segmental and somatic dysfunction of thoracic region ... ? Chiropractic Manipulative Tx Spinal 3-4 Regions [id number]; 08/23/2024 13:50:00 CDT, Spinal stenosis, lumbar region without neurogenic [...] f air to care m arked by t emporary decreased intensity of pain s/p chiropractic treatment. Physician Signature //SIGNED// Dr. Binu Lin DC, [facility]K Chiropractic Physician 375 Operational Medical Readiness Natalie Mayers [facility] Main Line DSN/Comm: [phone] / [phone] 08/23/24 13:34:16 Extracted from:Title: [facility] Sinusitis/Eye irritation Author: APRIL SELBY PA, Family Medicine Date: 08/23/24 1. U RI - Upper respiratory infection 48-year-old male presents to clinic with sinusitis symptoms for the past 2 days. Patient states originally on the right side but has moved over to the left side. Patient states left-sided maxillary sinus pressure/pain, ear pain, upper teeth pain, some tenderness of his tonsillar nodes. Patient tried saline rinses and Flonase with no resolution. Pt unable to take pseudoephedrine d ue to spike in BP. He denies any fever/chills, respiratory distress. - T ylenol or Motrin q6-8 hrs, may alternate q4 hours - S ileana nasal wash with warm water - Rx guaifenesin for mucus - Rx Augmentin for empiric treatment if symptoms improve then worsen or persist past 10d days - Discussed adequate rest, hand washing, and hydration with water and electrolyte drink. - Pt. to follow up for worsening symptoms in 3-5 days or persistence in one week - Clinic vs. ER for respiratory distress or inability to hydrate per our discussion - Pt. told to expect cough to resolve slowly over one month - Pt understands and verbalizes agreement. Ordered: amoxicillin-clavulanate(amoxi cillin-clavulanate 875 mg-125 mg oral tablet), 1 tab(s), Oral, every 12 hr, X 7 days, # 14 tab(s), 0 total refill(s), Acute, 08/30/2024, Pharmacy: [facility], Respiratory, sinusitis [Not filled] guaiFENesin(guaiFENesin 600 mg oral tablet, extended release), 1 tab(s), Oral, every 12 hr, # 20 tab(s), 0 total refill(s), Acute, 09/06/2024, Pharmacy: [facility] [Last filled 08/23/24] 2. E ye pain Pt notes that while he was checking in he felt a sharp/stabbing pain in his left eye. Denies any vision changes or pain with eye movement but states pain with blinking. On exam, no obvious foreign body noted but possible corneal abrasion. No edema or erythema of eye or eye lids. - Grotawanna attempted s ileana rinse with no resolution -Recommended f/u with optometry for more thorough eye exam -Avoid rubbing eye/touching eye -f/u as needed or if symptoms worsen -ER precautions if eye pain worsens, pain with ocular movements, vision changes, new or worsening edema The patient (is not) World Wide Qualified. AM Dispo: Non-Fly Cleared for [employer]/MOS Duties: Yes Cleared for continued service: Y es Cleared for mobility duties: Y es Cleared for participation in physical fitness program: Y es PHA/MHA/DRHA: U April Menjivar, 1st Lt, [place] [address] Please note that this dictation was completed with computer voice recognition software, [employer]cel[employer]. Quite often unanticipated grammatical, syntax, homophones, and other interpretive errors are inadvertently transcribed by the computer software. Please disregard these errors and excuse any errors that have escaped final proofreading. If are any questions regarding documentation, please contact this provider directly. Extracted from:Title: FTR - Low back pain Author: BINU LIN DC Date: 08/15/24 D iagnosis: 1 . R adiculopathy, lumbar region Comment: Ordered: Manual Therapy Tqs 1/> Regions Each 15 Minutes [id number]; 08/15/2024 13:27:00 CDT, 59, Spinal stenosis, lumbar region without neurogenic claudication Radiculopathy, lumbar region Segmental and somatic dysfunction of lumbar region ? Chiropractic Manipulative Tx Spinal 3-4 Regions [id number]; 08/15/2024 13:27:00 CDT, Spinal stenosis, lumbar region without neurogenic claudication Radiculopathy, lumbar region Segmental and somatic dysfunction of lumbar region Segmental and somatic dysfunction of thoracic region Segmental and somatic... D iagnosis: 2 . S ryne stenosis, lumbar region without neurogenic claudication Comment: Ordered: Manual Therapy Tqs 1/> Regions Each 15 Minutes [id number]; 08/15/2024 13:27:00 CDT, 59, Spinal stenosis, lumbar region without neurogenic claudication Radiculopathy, lumbar region Segmental and somatic dysfunction of lumbar region ? Chiropractic Manipulative Tx Spinal 3-4 Regions [id number]; 08/15/2024 13:27:00 CDT, Spinal stenosis, lumbar region without neurogenic claudication Radiculopathy, lumbar region Segmental and somatic dysfunction of lumbar region Segmental and somatic dysfunction of thoracic region Segmental and somatic... D iagnosis: 3 . S egmental and somatic dysfunction of lumbar region Comment: Ordered: Manual Therapy Tqs 1/> Regions Each 15 Minutes [id number]; 08/15/2024 13:27:00 CDT, 59, Spinal stenosis, lumbar region without neurogenic claudication Radiculopathy, lumbar region Segmental and somatic dysfunction of lumbar region ? Chiropractic Manipulative Tx Spinal 3-4 Regions [id number]; 08/15/2024 13:27:00 CDT, Spinal stenosis, lumbar region without neurogenic claudication Radiculopathy, lumbar region Segmental and somatic dysfunction of lumbar region Segmental and somatic dysfunction of thoracic region Segmental and somatic... D iagnosis: 4 . S egmental and somatic dysfunction of cervical region Comment: Ordered: Chiropractic Manipulative Tx Spinal 3-4 Regions [id number]; 08/15/2024 13:27:00 CDT, Spinal stenosis, lumbar region without neurogenic claudication Radiculopathy, lumbar region Segmental and somatic dysfunction of lumbar region Segmental and somatic dysfunction of thoracic region Segmental and somatic... D iagnosis: 5 . S egmental and somatic dysfunction of thoracic region Comment: Ordered: Chiropractic Manipulative Tx Spinal 3-4 Regions [id number]; 08/15/2024 13:27:00 CDT, Spinal stenosis, lumbar region without neurogenic claudication Radiculopathy, lumbar region Segmental and somatic dysfunction of lumbar region [...] air to care m arked by s tabilization of c hronic pain a t 09/18, a ccommodation to r adicular s/sx temporary relief o f back p ain for a ?few hours t o a d ay s /p chiropractic treatment. Physician Signature //SIGNED// Dr. Binu Lin DC, [facility]K Chiropractic Physician 375 Operational Medical Readiness [facility] Talib [facility] Main Line DSN/Comm: [phone] / [phone] 08/15/24 13:24:40 Extracted from:Title: FTR - Low back pain Author: BINU LIN DC Date: 08/08/24 D iagnosis: 1 . R adiculopathy, lumbar region Comment: Ordered: Chiropractic Manipulative Tx Spinal 3-4 Regions [id number]; 08/08/2024 13:37:00 CDT, Radiculopathy, lumbar region Spinal stenosis, lumbar region without neurogenic claudication Pain in left hip Segmental and somatic dysfunction of lumbar region Segmental and somatic dysfunction of thoracic region Seg... D iagnosis: 2 . S ryne stenosis, lumbar region without neurogenic claudication Comment: Ordered: Manual Therapy Tqs 1/> Regions Each 15 Minutes [id number]; 08/08/2024 13:37:00 CDT, 59, Spinal stenosis, lumbar region without neurogenic claudication Pain in left hip Segmental and somatic dysfunction of lumbar region ? Chiropractic Manipulative Tx Spinal 3-4 Regions [id number]; 08/08/2024 13:37:00 CDT, Radiculopathy, lumbar region Spinal stenosis, lumbar region without neurogenic claudication Pain in left hip Segmental and somatic dysfunction of lumbar region Segmental and somatic dysfunction of thoracic region Seg... D iagnosis: 3 . P ain in left hip Comment: Ordered: Manual Therapy Tqs 1/> Regions Each 15 Minutes [id number]; 08/08/2024 13:37:00 CDT, 59, Spinal stenosis, lumbar region without neurogenic claudication Pain in left hip Segmental and somatic dysfunction of lumbar region ? Chiropractic Manipulative Tx Spinal 3-4 Regions [id number]; 08/08/2024 13:37:00 CDT, Radiculopathy, lumbar region Spinal stenosis, lumbar region without neurogenic claudication Pain in left hip Segmental and somatic dysfunction of lumbar region Segmental and somatic dysfunction of thoracic region Seg... D iagnosis: 4 . S egmental and somatic dysfunction of sacral region Comment: Ordered: Chiropractic Manipulative Tx Spinal 3-4 Regions [id number]; 08/08/2024 13:37:00 CDT, Radiculopathy, lumbar region Spinal stenosis, lumbar region without neurogenic claudication Pain in left hip Segmental and somatic dysfunction of lumbar region Segmental and somatic dysfunction of thoracic region Seg... D iagnosis: 5 . S egmental and somatic dysfunction of lumbar region Comment: Ordered: Manual Therapy Tqs 1/> Regions Each 15 Minutes [id number]; 08/08/2024 13:37:00 CDT, 59, Spinal stenosis, lumbar region without neurogenic claudication Pain in left hip Segmental and somatic dysfunction of lumbar region ? Chiropractic Manipulative Tx Spinal 3-4 Regions [id number]; 08/08/2024 13:37:00 CDT, Radiculopathy, lumbar region Spinal stenosis, lumbar region without neurogenic claudication Pain in left hip Segmental and somatic dysfunction of lumbar region Segmental and somatic dysfunction of thoracic region Seg... D iagnosis: 6 . S egmental and somatic dysfunction of thoracic region Comment: Ordered: Chiropractic Manipulative Tx Spinal 3-4 Regions [id number]; 08/08/2024 13:37:00 CDT, Radiculopathy, lumbar region Spinal stenosis, lumbar region without neurogenic claudication Pain in left hip Segmental and somatic dysfunction of lumbar region Segmental and somatic dysfunction of thoracic region Seg... End of Orders Chiropractic Treatment Chiropractic Diversified Adjustments Prone T/S, S jose posture to [place], SI and L/S?AT Performed attended, prone, Ray Flexion/Distraction (12min) to L/S, Protocol II, -59 Distinct separate procedure Therapeutic Modalities None Exercises Continue exercises as prescribed in treatment plan. Final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
--- OUTSIDE RECORDS SUMMARY | 2024-11-22 20:01 | XMS_ITS | Patient Health Record ---
Author Organization [facility] Address [address] [place] [address] Care Team Providers Care Instructor Correspondence School Name Role Phone Undecided, Undecided Primary Care Provider Unava Anthony Camarena Unavailable [phone] Zach Bynum MD Unavailable Unavailable Allergies No [...] Problem Status W/U Status Risk Notes Problem Chronic pain (26419547) Other chronic pain (G89.29) Active confirmed Problem Injury of left peroneal nerve, subsequent encounter (S84.12XD) Active confirmed Problem Complex regional pain syndrome, type II, lower limb (833083471) Complex regional pain syndrome type 2 of left lower extremity (G57.72) Active confirmed Plan Of Treatment No Information Insurance Providers Payer Name Payer Address Payer Phone Subscriber Number Group Number Insured Name Patient Relationship to Insured Coverage Start Date Coverage End Date [facility] [place] [phone] [id number] Ronny Henderson Self - patient is the insured Medical (General) History Medical History History ICD Code Back pain; Labral Tear; Plantar fasciitis; Surgical History Surgery Date(Month/Year) Back surgery; 01/08/2019 Cholecstectomy; 2002 Knee surgery; 01/08/2019 left foot; 01/08/2019 Shoulder surgery; 01/08/2019 Hospitalization History Reason Date(Month/Year) see surgical history
--- OUTSIDE RECORDS SUMMARY | 2024-11-22 20:01 | XMS_ITS | Clinical Summary ---
Author Organization [facility] Address [address] [place] [address] Care Team Providers Care Public Welfare Director Name Role Phone Erik Goncalves DO Primary Care Provider [phone] Allergies Active Allergy Reactions Criticality Noted Date Comments Propranolol Dizziness 06/21/2024 Pseudoephedrine Other (see comment) 06/21/2024 Hypertension Social History Tobacco Use Types Packs/Day Years [...] 8:51 AM CDT Height 185.4 cm (6' 1) 06/21/2024 8:51 AM CDT Body Mass Index 27.31 06/21/2024 8:51 AM CDT Plan of Treatment Health Maintenance Due Date Last Done Comments Colorectal Cancer Screening Colonoscopy (10 Years) 1977 Annual Physical 1980 Hepatitis C 12/20/1995 DTaP, Tdap and Td Vaccines ( 1 - Tdap) 1996 Hepatitis B Vaccines (1 of 3 - 19+ 3-dose series) 1996 COVID-19 Vaccine ( - 2023-2 5 season) 2023 Meningococcal B Vaccine Aged [...] on patient's age to complete this topic Insurance [facility] Care Teams Public Welfare Director Relationship Specialty Start Date End Date Erik Goncalves DO [address] [address] PCP - General FAMILY PRACTICE 06/21/24
--- OUTSIDE RECORDS SUMMARY | 2024-11-22 20:01 | XMS_ITS | Patient Health Record ---
Author Organization [facility] Address [address] [place] [address] Care Team Providers Care Javascript Developer Name Role Phone Alex Ivy MD Unavailable Unavailable Reason For Referral No Information Medications Medication SIG (Take, Route, Frequency, Duration) Notes Start Date End Date Status Lyrica 75 mg Capsule 1 capsule Orally BID; Duration: 30 days 06/30/2018 Active Propranolol HCl *Pick strength-form from Medispan for eRX* Active NexIUM *Pick strength-form from Medispan for eRX* Active Nortriptyline HCl *Pick strength-form from Medispan for eRX* Active ZyrTEC *Pick strength-form from Medispan for eRX* Active Social History Social History Additional Details Category Social Info Options Details Migrated Social History Drugs/Alcohol: (Alcohol Screen): Did you have a drink containing alcohol in the past year?: Yes, Points: 0 ; Miscellaneous: (Level of Education & Occupation:):works full-time ;(Marital status:): ; Tobacco Use: (Tobacco Use/Smoking): Smoking Status:: nonsmoker ; Section Notes: [facility] website checked prior t o visit [facility] website checked prior t o visit Problems Problem Type SNOMED Code ICD Code Onset Dates Problem Status W/U Status Risk Notes Problem Chronic pain (85943322) Other chronic pain (G89.29) Active confirmed Problem Sciatica (73908351) Lumbago with sciatica, left side (M54.42) Active confirmed Problem 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) Idiopathic neuropathy (G60.9) Active confirmed Problem Degeneration of lumbar intervertebral disc (62430640) Disc degeneration, lumbar (M51.36) Active confirmed Plan Of Treatment No Information Insurance Providers Payer Name Payer Address Payer Phone Subscriber Number Group Number Insured Name Patient Relationship to Insured Coverage Start Date Coverage End Date XIMENA FOSTER [address] [place] [address] [id number] Ronny Henderson Self - patient is the insured Medical (General) History Medical History History ICD Code Abnormal heart beat Heartburn/Acid Reflux(GERD) depression Surgical History Surgery Date(Month/Year) gallbladder Heart Surgery
--- OUTSIDE RECORDS SUMMARY | 2024-11-22 20:01 | XMS_ITS | Encounter Summary ---
Author Organization [facility] Address [address] [place] [address] Care Team Providers Care Associate Team Physician Name Role Phone [facility] Primary Care Provider [phone] Zachary Kapoor MD Unavailable Erik Goncalves DO Unavailable Erik Goncalves DO Primary Care Provider [phone] Encounter Details Date Type Department Care Team (Late st Contact Info) Description 05/07/2024 Telephone [facility] Pain [address] [address] Sirena Alejandre RN Social History [...] on filedocumented in this encounter Care Teams Associate Team Physician Relationship Specialty Start Date End Date [facility], [facility] [address] [place], [place] [address] PCP - General 09/14/23 05/30/24 Erik Goncalves DO [address] [place] [address] PCP - General Family Medicine 05/31/24 Zachary Kapoor MD [address] [facility], [address] [address] Consulting Physician Pain Management 09/23/23 Erik Goncalves DO [address] [facility], [address] [address] Family Medicine 09/30/23 documented as of this encounter
--- OUTSIDE RECORDS SUMMARY | 2024-11-22 20:01 | XMS_ITS | Clinical Summary ---
Author Organization [facility] Address [address] [place] [address] Care Team Providers Care Mechanism Inspector Name Role Phone Zachary Kapoor MD Unavailable Erik Goncalves DO Unavailable Erik Goncalves DO Primary Care Provider [phone] Allergies Active Allergy Reactions Criticality Noted Date Comments Celecoxib Muscle pain Medium 09/30/2023 Propranolol Dizziness Low 09/30/2023 Pseudoephedrine Other (See comments) Low 04/26/2024 Makes BP skyrocket Shellfish Containing Products Other (See comments) 09/07/2024 Lab worked stated pt has a shellfish allergy - has never had an issue with Betadine or contrast for steroid injections Medications ivabradine (CORLANOR) 5 mg tabletIndication s:inappropriate [...] total) by mouth daily 30 tablet 2 Active Active Problems Problem Noted Date Diagnosed Date Chest pain 05/31/2024 Anemia 05/31/2024 Inappropriate sinus tachycardia 05/31/2024 Other bursal cyst, left hip Colitis Overview (04/26/2024): after colonoscopy Encounters Date Type Department Care Team Description 09/20/2024 8:30 AM CDT Office Visit [facility] Cardiology [address] [place] [address] Steff Lopez NP Other chest pain (Primary Dx); Inappropriate sinus tachycardia; Anemia, unspecified type 09/07/2024 1:31 PM CDT - 09/07/2024 11:59 PM CDT Hospital Encounter [facility] [address] [place] [address] Zachayr Kapoor MD Bulge of lumbar disc without myelopathy (Primary Dx); Neural foraminal stenosis of lumbar spine; Radiculopathy, lumbar region Discharge Disposition: Discharge to home or self care from Last 3 Months Surgical History Surgery Date Site/Laterality Comments CHOLECYSTECTOMY ABLATION SHOULDER ARTHROPLASTY Right Medical History Medical History Date Comments Plantar lipomatosis, facial dysmorphism, and developmental delay syndrome Other bursal cyst, left hip Colitis after colonoscop y 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 [place] (myocardial infarction) (HCC) Anemia Family History Medical [...] Sign Reading Time Taken Comments Blood Pressure 96/60 09/20/2024 8:32 AM CDT Pulse 71 09/20/2024 8:32 AM CDT Temperature 36.6 C (97.9 F) 09/07/2024 2:13 PM CDT Respiratory Rate 18 09/07/2024 2:13 PM CDT Oxygen Saturation 96% 09/20/2024 8:32 AM CDT Inhaled Oxygen Concentration - - Weight 95.3 kg (210 lb) 09/20/2024 8:32 AM CDT Height 185.4 cm (6' 1) 09/20/2024 8:32 AM CDT Body Mass Index 27.71 09/20/2024 8:32 AM CDT Plan of Treatment Health Maintenance Due Date Last Done Comments Colon Cancer Screening-Colonoscopy 1977 Depression Screening 1977 Hepatitis C Screening 1977 DTaP/Tdap/Td Vaccine (1 - Tdap) 1988 Hepatitis B Screening 12/20/1995 Regular Well Visit/Exam 18-64 12/20/1995 Covid-19 Vaccine (3 - 2023-2 5 season) 2023 12/05/2020, 11/14/2020 Influenza Vaccine (#1) 2024 HPV Vaccines Aged Out No longer eligi ble based on patient's age to complete this topic Pneumococcal vaccine <65 Aged Out No longer eligible based on patient's age to complete this topic Insurance [facility] Member Subscriber Plan / Payer (Ef fective 2023-Present) Name:Ronny Henderson Relation to Subscriber:Self Name:Ronny Henderson Payer ID:[id number] (NAIC) Group ID:Not on file Type:Digital Lab Address: [facility] [address] [place] [address] [facility] Care Teams Mechanism Inspector Relationship Specialty Start Date End Date Erik Goncalves DO [address] [place] [address] PCP - General Family Medicine 05/31/24 Zachary Kapoor MD [facility], [address] [address] Consulting Physician Pain Management 09/23/23 Erik Goncalves DO [facility], [address] [address] Family Medicine 09/30/23
[2024-11-22 20:25] VITALS: BP 125/85; PULSE 58; RESP 14; TEMP 37; O2SAT 100
[2024-11-22 22:28] VITALS: BP 112/73; PULSE 105; RESP 16; O2SAT 97
[2024-11-22 23:59] VITALS: BP 123/83; PULSE 58; RESP 15; O2SAT 100
--- OUTSIDE RECORDS SUMMARY | 2024-11-23 00:25 | XMS_ITS | Patient Health Record ---
Author Organization [facility] Address [address] [place] [address] Care Team Providers Care Woodworking Machine Operator Name Role Phone Nette Blanco APRN Primary Care Provider U cristiana Hart MD, Matthew Unavailable [phone] Allergies No Known Allergies Reason For Referral No Information Social History Tobacco Use: Social History Observation Description Date Details (start date - stop date) Never Smoker NA - NA Tobacco Use/Smoking Question Answer Notes Tobacco use: nonsmoker Problems Problem Type SNOMED Code ICD Code Onset Dates Problem Status W/U Status Risk Notes Problem Disorder of musculoskeletal system (722929) Weakness of left lower extremity (R29.898) Active confirmed Problem Skin sensation disturbance (76148119) Numbness of left foot (R20.8) Active confirmed Problem Edema (970434007) Edema of left foot (R60.0) Active confirmed Plan Of Treatment No Information Insurance Providers Payer Name Payer Address Payer Phone Subscriber Number Group Number Insured Name Patient Relationship to Insured Coverage Start Date Coverage End Date [facility] [address] [place] [address] [id number] ANDREW CAMARGO Self - patient is the insured Medical (General) History Medical History History ICD Code _: migraine headaches
--- OUTSIDE RECORDS SUMMARY | 2024-11-23 00:26 | XMS_ITS | Clinical Summary ---
Author Organization [facility] [place] Address [address] [place] [address] Care Team Providers Care Food Porter Name Role Phone Zachary Kapoor MD Unavailable Erik Goncalves DO Unavailable Erik Goncalves DO Primary Care Provider [phone] Allergies Active Allergy Reactions Criticality Noted Date [...] Description 09/20/2024 8:30 AM CDT Office Visit [facility] Cardiology [address] [place] [address] Steff Lopez NP Other chest pain (Primary Dx); Inappropriate sinus tachycardia; Anemia, unspecified type 09/07/2024 1:31 PM CDT - 09/07/2024 11:59 PM CDT Hospital Encounter [facility] [address] [place] [address] Zachary Kapoor MD Bulge of lumbar disc without [...] after colonoscop y 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 [place] (myocardial infarction) (HCC) Anemia Family History Medical [...] patient's age to complete this topic Insurance [facility] Care Teams Food Porter Relationship Specialty Start Date End Date Erik Goncalves DO [address] [place] [address] PCP - General Family Medicine 05/31/24 Zachary Kapoor MD [facility], [address] [address] Consulting Physician Pain Management 09/23/23 Erik Goncalves DO [facility], [address] [address] Family Medicine 09/30/23
--- OUTSIDE RECORDS SUMMARY | 2024-11-23 00:26 | XMS_ITS ---
Author Organization [facility] Address [address] [place] [address] [place] [address] Care Team Providers Care Library Circulation Department Chief Name Role Phone GISSEL DOCKERY MD Primary Care Provider Unavaila GISSEL Castillo Unavailable [phone] REASON FOR VISIT Transition of care-ER Encounters Encounter Location Date Provider Diagnosis [id number] [address] [place], [place] [id number] 01/23/2024 GISSEL DOCKERY Plan Of Treatment No Information Progress Notes * Ronny CAMARGO WDOB:1975 ( 48 yo M)Acc No.[id number]:01/23/2024 Patient: Ronny MAHER :1975 A ge:48 Y S ex:Male Address:[address] [place] [address] [place], [address] Subjective: * Chief Complaints: * T ransition of care-ER * HPI: I NTERIM-HISTORY: Outpatient Visit T ype of Outpatient Facility: E mergency Room D maximino Mark santhosh of facility: [facility] ED D ate of Discharge: 1 1 [...] Date: Generated for Mechelle cunningham/Justino/eTransmitting on: 0 11/23/2024 12:26 AM CDT History and Physical Notes * HPI (History of Present Illness) Category Sub-Category Detail Notes Category Not es INTERIM-HISTORY Outpatient Visit Type of Outpati ent Facility:: Emergency Room Division: [facility] Name of facility:: [facility] ED Date of Discharge:: 01/18/2024 1st Follow-up [...]
--- OUTSIDE RECORDS SUMMARY | 2024-11-23 00:26 | XMS_ITS | Patient Health Record ---
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) Idiopathic neuropathy (G60.9) Active confirmed Problem Degeneration of lumbar intervertebral disc (17675529) Disc degeneration, lumbar (M51.36) Active confirmed Plan Of Treatment No Information Insurance Providers Payer Name Payer Address Payer Phone Subscriber Number Group Number Insured Name Patient Relationship to Insured Coverage Start Date Coverage End Date XIMENA FOSTER [address] [place] [phone] [id number] Ronny Henderson Self - patient is the insured Medical (General) History Medical History History ICD Code Abnormal heart beat Heartburn/Acid Reflux(GERD) depression Surgical History Surgery Date(Month/Year) gallbladder Heart Surgery
--- OUTSIDE RECORDS SUMMARY | 2024-11-23 00:26 | XMS_ITS | Clinical Summary ---
Author Organization [facility] Address [address] [place] [address] Care Team Providers Care Medical Imaging Technologist Name Role Phone Erik Goncalves DO Primary Care Provider [phone] Allergies Active Allergy Reactions Criticality Noted Date [...] patient's age to complete this topic Insurance [facility] Care Teams Medical Imaging Technologist Relationship Specialty Start Date End Date Erik Goncalves DO [address] [address] PCP - General FAMILY PRACTICE 06/21/24
--- OUTSIDE RECORDS SUMMARY | 2024-11-23 00:26 | XMS_ITS | Patient Health Record ---
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 I suspect when he discontinued his beta tish he was having a rebound effect and I told him that if he wanted to try to wean off of it again we can try more slowly. But he also takes for migraine headache so I left him on it. Problem 078617998 Nocturia (R35.1) Active confirmed Problem 1298584044096 Benign prostatic hyperplasia with lower urinary tract symptoms (N40.1) Active confirmed Problem 082430268 Seasonal allergies (J30.2) Active confirmed Problem 46105795 Lumbar degenerative disc disease (M51.36) Active confirmed Problem 547072896 Elevated hemoglobin A1c (R73.09) Active confirmed Problem 125757719 GERD without esophagitis (K21.9) Active confirmed Problem 723634915 Abnormal ECG (R94.31) Active confirmed His resting ECG has poor R-wave progression, I ordered an echocardiogram to assess LV function but he reports no angina Problem 55581079 Anal fissure (K60.2) Active confirmed Problem 640552967 Hepatic steatosis (K76.0) Active confirmed Problem 6341190 SVT (supraventricul ar tachycardia) (I47.1) Active confirmed He is status post RFA for likely PSVT although records are not available. I ordered an echocardiogram and assess LV function. This is normal we will continue with his current treatment plan of beta tish. 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) Active confirmed Problem 493219467 Schatzki's ring of distal esophagus (K22.2) Active confirmed Problem 211918821 Elevated LDL cholesterol level (E78.00) Active confirmed Problem 150017364 Neuropathic pain of right ankle (M79.2) Active confirmed Encounters Encounter Location Date Provider Diagnosis [id number] [facility] [address] [place] [id number] 01/23/2024 JAYLA SARKIS Plan Of Treatment Pending Test Test Name Order Date [place] ([address])([facility]) 04/01/2022 [place]- ABDOMEN LIMITED (29270)([facility]) 0 09/28/2021 TSH ([id number]) 09/11/2019 CBC With Differential/Platelet ([id number] 9) 09/11/2019 Vitamin D, 25-Hydroxy (LC-016648) 2019 Lipid Panel ([id number]) 09/11/2019 Lipid Panel ([id number]) 06/08/2019 Comp. Metabolic Panel (14) ([id number]) 0 09/11/2019 Fe + TIBC + Bereket + Transf (-[id number]) 09/11/2019 XRAY- L SPINE COMPLETE W/BENDING (48777) ([facility])DUP 09/11/2019 Future Test Test Name Order Date Hemoglobin A1c ([id number]) 02/23/2023 TSH ([id number]) 02/23/2023 CBC With Differential/Platelet ([id number]) 02/23/2023 Lipid Panel w/ Chol/HDL Ratio (LC-099655 ) 02/23/2023 Comp. Metabolic Panel (14) ([id number]) 1 04/25/2022 Insurance Providers Payer Name Payer Address Payer Phone Subscriber Number Group Number Insured Name Patient Relationship to Insured Coverage Start Date Coverage End Date [facility] TO [id number] [address] [place], [place] [phone] [id number] Ronny Henderson Self - patient is the insured 8 2 Medications Administered Medication Instructions Date of Administration Dosage Notes Ketorolac (Toradol) 11/02/2019 60 mg zMethylprednisolone Acetate 80 mg (Depo Medrol) 09/11/2019 80 mg zMethylprednisolone Acetate 80 mg (Depo Medrol) 11/02/2019 80 mg MethylPREDNISolone Acetate 11/19/2021 80 mg verf by vj MethylPREDNISolone Acetate 04/01/2022 80 mg verified RH Medical (General) History Medical History History ICD [...]
--- OUTSIDE RECORDS SUMMARY | 2024-11-23 00:26 | XMS_ITS | Encounter Summary ---
Author Organization [facility] Healthcare Address [address] [place] [address] Care Team Providers Care Finisher Wallboard And Plasterboard Name Role Phone [facility] [place] Care Provider [phone] Zachary Kapoor MD Unavailable Erik Goncalves DO Unavailable Erik Goncalves DO Primary Care Provider [phone] Encounter Details Date Type Department Care Team (Late st Contact Info) Description 05/07/2024 Telephone [facility] [address] [address] Sirena Alejandre RN Social History [...] on filedocumented in this encounter Care Teams Finisher Wallboard And Plasterboard Relationship Specialty Start Date End Date [facility], [facility] [address] [place], [place] [address] PCP - General 09/14/23 05/30/24 Erik Goncalves DO [address] [place] [address] PCP - General Family Medicine 05/31/24 Zachary Kapoor MD [address] [facility], [address] [address] Consulting Physician Pain Management 09/23/23 Erik Goncalves DO [address] [facility], [address] [address] Family Medicine 09/30/23 documented as of this encounter
--- OUTSIDE RECORDS SUMMARY | 2024-11-23 00:26 | XMS_ITS | Patient Health Record ---
Author Organization [facility] Address [address] [place] [phone] Care Team Providers Care Pharmacist Technician Name Role Phone Undecided, Undecided Primary Care Provider Unava Anthony Camarena Unavailable [phone] Zach Bynum MD Unavailable Unavailable Allergies No [...] W/U Status Risk Notes Problem Chronic pain (89769949) Other chronic pain (G89.29) Active confirmed Problem Injury of left peroneal nerve, subsequent encounter (S84.12XD) Active confirmed Problem Complex regional pain syndrome, type II, lower limb (270210225) Complex regional pain syndrome type 2 of left lower extremity (G57.72) Active confirmed Plan Of Treatment No Information Insurance Providers Payer Name Payer Address Payer Phone Subscriber Number Group Number Insured Name Patient Relationship to Insured Coverage Start Date Coverage End Date [facility] [address] [place] [phone] [id number] Ronny Henderson Self - patient is the insured Medical (General) History Medical History History ICD Code Back pain; Labral Tear; Plantar fasciitis; Surgical History Surgery Date(Month/Year) Back surgery; 01/08/2019 Cholecstectomy; 2002 Knee surgery; 01/08/2019 left foot; 01/08/2019 Shoulder surgery; 01/08/2019 Hospitalization History Reason Date(Month/Year) see surgical history
--- OUTSIDE RECORDS SUMMARY | 2024-11-23 00:27 | XMS_ITS | Continuity of Care Document ---
Author Name [facility] Organization [facility] Care Team Providers Care Pantograph Engraver Name Role Phone [facility] Unavailable Unavailable Problems Combined list of problems from 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 It does not include entries that were removed or entered in error. Problem Status Onset Date Problem Type Date of Resolution Comments Source VIRAL SYNDROME Inactive 009 Condition DoD CONTACT DERMATITIS Inactive 009 Condition DoD SUPERFICIAL INJURY - NONVENOMOUS INSECT BITE OF [...] DoD visit for: administrative purpose Active Condition [facility] visit for: postsurgical exam Inactive Condition DoD REFRACTIVE ERROR Active Condition [facility] visit for: occupational health / fitness exam Active Condition DoD Patient Education - Injury Prevention Inactive Condition DoD REFRACTIVE ERROR - MYOPIA Active Condition Order foc,s-9 and pmi as needed. ref for refracive surgery pkg filled out. [facility] visit for: preoperative exam Inactive Condition [facility] visit for: services physical Inactive Condition DoD FOOT SPRAIN Inactive Condition FOOT SPRAIN [facility] Patient Education - Self-Examination Active Condition DoD PATELLOFEMORAL SYNDROME LEFT Active Condition DoD AF-Atrial Fibrillation (SCT 53788179) Active Condition Jan 26, 2019 Entered By: AD SHI Comment: Treated with ablation in 2006. [facility] ALEXA ARELLANO 15 Allergic rhinitis due to grass pollen (SNOMED CT 03011034) Active Condition [facility] Anemia (SCT 339472021) Active Condition Aug 07, 2019 Entered By: AD SHI Comment: Iron deficiency of UE per [facility] Oncology in 2017 which mentioned a 2009 colonoscopy and that he donates a lot of blood. [facility] 15 Chronic low back pain Active Condition JENNIFER Shipley [facility] Chronic pain syndrome Active Condition [facility] 15 Chronic post-traumatic stress disorder (SNOMED CT 820905544) Active Condition [facility] Colitis Active Condition Dec 20 Entered By: AD SHI Comment: hospitalized with unknown type when 32 yo [facility] 15 Dermatitis * (ICD-9-CM 692.9) Active Condition [facility] Dry eyes Active Condition [facility] 15 Exposure to potentially hazardous substance Active Condition [facility] Family history of colorectal cancer Active Condition Dec 20 Entered By: AD SHI Comment: in another [place] with mets to lungs. [facility] Family history of leukemia Active Condition Dec 20, 2018 Entered By: AD SHI Comment: in [place] [facility] 15 Family history of malignant neoplasm of ovary Active Condition Dec 20, 2018 Entered By: AD SHI Comment: [place] [facility] 15 FH: Cardiovascular disease Active Condition Dec 20, 2018 Entered By: AD SHI Comment: PGF had CABG in his 60s [facility] 15 Gastro-esophageal reflux disease with esophagitis (SNOMED CT 256729924) Active Condition ALLOY Quinten [facility] GERD - Gastro-Esophageal Reflux Disease (SCT 044942563) Active Condition Aug 07, 2019 Entered By: AD SHI Comment: Negative EGD with dilation on 11/20/[address] Dr Cristiano José of [place], [place].Aug 07, 2019 Entered By: AD SHI Comment: Hx of dilation in 2013.Mar 12, 2020 Entered By: AD SHI Comment: Negative EGD on 11/19/2019. [facility] 15 H/O: surgery Active [...] L3-L4, L4-L5, L5-S1 facet nerve radiofrequency ablation [facility] 15 History of colonoscopy Active Condition Mar 12, 2020 Entered By: AD SHI Comment: Negative on 11/19/2019 and repeat it in 10 years. [facility] 15 Immunization status Active Condition Dec 20, 2018 Entered By: AD SHI Comment: Chickenpox as a child [facility] 15 Inappropriate sinus tachycardia Active Condition [facility] 15 Internal hemorrhoids without mention of complication (ICD-9-CM 455.0) Active Condition [facility] Knee pain Active Condition JENNIFER Maldonado [facility] Low back pain Active Condition 0055C-[address] [place] [address] Lumbar spondylosis Active Condition [facility] 15 Migraine with aura Active Condition [facility] 15 Neuropathy Active Condition Feb 20 Entered By: AD SHI Comment: Idiopathic per Luis Ruiz DPM on 06/30/2018 & Rx with Lyrica 75 mg po BID. (No lab). [facility] 15 Pain of left ankle joint (SNOMED CT [id number]) Active Condition [facility] Sleep related bruxism Active Condition [facility] Supraventricular tachycardia Active Condition JENNIFER RODRIGUEZ [facility] Arrhythmia * (ICD-9-CM 427.9) Inactive Condition 12/08/2017 [facility] Chronic Low Back Pain (ICD-9-CM 724.2) Inactive Condition 12/08/2017 [facility] Health Maintenance (ICD-9-CM V65.9) Inactive Condition 12/08/2017 [facility] Insect bite, nonvenomous, of other, multiple, and unspecified sites, without men Inactive Condition 12/08/2017 [facility] Other Specified Counseling (ICD-9-CM V65.49) Inactive Condition 12/08/2017 [place] [facility] Rectal Bleeding (ICD-9-CM 569.3) Inactive Condition 12/08/2017 [facility] Toxic gastroenteritis and colitis (ICD-9-CM 558.2) Inactive Condition 12/08/2017 [facility] Anal fissure Active Condition - [facility] - Iron deficiency anemia Active Condition 5C-3 [facility] Radiculopathy, lumbar region Active Condition [facility] Major depressive disorder, single episode, mild Active Condition [facility] Pain in left hip Active Condition [facility] Shoulder pain Active Condition 0089C-AM C [facility] Sinus tachycardia Active Condition 54 C- [facility] Spinal stenosis, lumbar region without neurogenic claudication Active Condition [facility] Posterior vitreous detachment Active Condition Unknown Organization Diagnosis: ICD-10-CM M54.51 Vertebrogenic low back pain Active Diagnosis [facility] Medications Combined list of outpatient medications from [...] Acute, 10/28/23 8:46:00 AM CDT, Pharmacy : [facility] Oral (given by mouth) Complet ed 10/28/2023 4 2023 40.0 0055C-3 [facility] Afrin 0.05% nasal spray 2 spray(s) , Nostril- Both, BID, Do not use for more than 3 days., X 3 days, # 15 mL, 0 total refill(s ), Acute, Pharmacy : [facility] Nostri l-Both (into the nose) Complet ed 06/25/2024 5 2024 15.0 0055C-[address] [place] [address] amoxicillin -clav 875 mg-125 mg tablet See Instruct ions, # 14 EA, 0 total refill(s ), Hard Stop Complet ed 07/18/2023 4 2023 14.0 Ambulat ory Pharmac y amoxicillin -clavulanat e 875 mg-125 mg oral tablet 1 tab(s), Oral, every 12 hr, X 7 days, # 14 tab(s), 0 total refill(s ), Acute, 08/30/24 11:37:00 AM CDT, Pharmacy : [facility] , Respirat ory, sinusiti s Oral (given by mouth) Complet ed 08/30/2024 5 2024 14.0 0055C-3 75[facility] amoxicillin -clavulanat e 875 mg-125 mg oral tablet 14 EA, 0 Refill(s ), TAKE 1 TABLET BY MOUTH EVERY 12 HOURS FOR 1 WEEK, 0 total refill(s ), Soft Stop Complet ed 07/31/20242024 0055C-3 [facility] ASCORBIC ACID 500MG TAB TAKE ONE TABLET BY MOUTH EVERY DAY ORAL ACTIVE BENIGNO DIAZ 2007 [facility] baclofen 10 mg oral tablet 1 tab(s), Oral, Daily, # 90 tab(s), 0 total refill(s ), Hard Stop, 11/02/24 2:17:11 PM CDT, Pharmacy : [facility] Oral (given by mouth) Complet ed 11/02/2024 4 2024 90.0 0055C-3 75[facility] baclofen 10 mg oral tablet 1 tab(s), Oral, Daily, # 90 tab(s), 1 total refill(s ), [facility], Pharmacy : [facility] Oral (given by mouth) Ordered 5 2024 90.0 0055C-3 75[facility] [place] CARISOPRODO L 350MG TAB TAKE ONE TABLET BY MOUTH EVERY DAY NEEDED ORAL ACTIVE LLOYD DENNIS 2014 [facility] cefdinir 300 mg capsule See Instruct ions, # 20 EA, 0 total refill(s ), Hard Stop Complet ed 03/23/2024 4 2023 20.0 Ambulat ory Pharmac y CETIRIZINE HCL 10MG TAB TAKE ONE TABLET BY MOUTH EVERY DAY ORAL ACTIVE MARCELINOCARIDAD Griffiths 2012 [facility] [place] Oral, 0 total refill(s ), [...] total refill(s ), Maintena nce, Pharmacy : [facility] Oral (given by mouth) Ordered 5 2023 90.0 0055C-3 75[facility] diclofenac 1% topical gel 1 g, Topical, QID, # 100 g, 0 total refill(s ), Maintena nye, Pharmacy : [facility] Topica l (on the skin) Ordered 10/31/2023 4 2023 100.0 0055C-3 75[facility] esomeprazol e 40 mg oral delayed release capsule 40 mg, Oral, 0 Refill(s ), 0 total refill(s ), Soft Stop Oral (given by mouth) Discont inued 11/04/20232023 0055C-3 [facility] esomeprazol e 40 mg oral delayed release capsule 1 cap(s), Oral, Daily, # 90 cap(s), 3 total refill(s ), Hard Stop, Pharmacy : [facility] Oral (given by mouth) Complet ed 11/13/2024 5 2024 90.0 0055C-3 [facility] esomeprazol e 40 mg oral delayed release capsule 1 cap(s), Oral, Daily, # 90 cap(s), 3 total refill(s ), [facility], Pharmacy : [facility] Oral (given by mouth) Ordered 5 2024 90.0 0055C-3 [facility] ESOMEPRAZOL E MAGNESIUM 40MG CAP,EC TAKE ONE CAPSULE BY MOUTH AT BEDTIME TO LOWER STOMACH ACID. TAKE AT LEAST 1 HOUR BEFORE FOOD (N/F APPROVED ) ORAL 03/08/2024 [id number] CINTIA [facility] E 2022 90 [facility] ESOMEPRAZOL E MAGNESIUM 40MG CAP,EC TAKE 1 CAPSULE BY MOUTH EVERY DAY ORAL ACTIVE CARIDAD BENSON 2012 [facility] ferrous fumarate 324 mg (106 mg elemental iron) oral tablet 1 tab(s), Oral, every other day, # 90 tab(s), 0 total refill(s ), [facility], Pharmacy : [facility] Oral (given by mouth) Ordered 2023 90.0 0055C-3 75[facility] fluconazole 200 mg tablet = 1 [...] Acute, 07/06/23 7:49:00 AM CDT, Pharmacy : [facility] Oral (given by mouth) Complet ed 07/06/2023 4 2023 40.0 0055C-3 75[facility] [place] guaiFENesin 600 mg oral tablet, extended release 1 tab(s), Oral, every 12 hr, # 20 tab(s), 0 total refill(s ), Acute, 09/06/24 12:00:00 AM CDT, Pharmacy : [facility] Oral (given by mouth) Complet ed 09/06/2024 5 2024 20.0 0055C-3 75[facility] IBUPROFEN 800MG TAB TAKE ONE TABLET BY MOUTH EVERY DAY NEEDED ORAL ACTIVE CARIDAD BENSON L 2012 [facility] Lidoderm 5% topical patch 1 patch(es ), Topical, Daily, Leave on for up to 12 hours within a 24 hour period (12 hours on, 12 hours off), # 30 patch(es ), 3 total refill(s ), Maintena samariae, Pharmacy : [facility] Topica l (on the skin) [...] total refill(s ), Maintena samariae, Pharmacy : [facility] Oral (given by mouth) Discont inued 02/23/2024 4 2023 20.0 0055C-3 [facility] NexIUM Oral, Daily, 0 total refill(s ), Maintena samariae Oral (given by mouth) Discont inued 11/04/20232023 0055C-3 [facility] NORTRIPTYLI NE HCL 25MG CAP TAKE 2 CAPSULES BY MOUTH EVERY DAY ORAL ACTIVE MARCELINOEAR L 2014 [facility] nystatin [id number] units/mL oral suspension See Instruct ions, Oral, # 168 mL, 0 total refill(s ), Hard Stop Oral (given by mouth) Complet ed 03/30/2024 4 2023 168.0 Ambulat ory Pharmac y OMEGA-3-ACI D ETHYL ESTERS 1000MG CAP,ORAL TAKE 2 CAPSULES BY MOUTH EVERY DAY ORAL ACTIVE BENIGNO DIAZ 2007 [facility] Pepcid 20 mg oral tablet 1 tab(s), Oral, BID, for gastriti s, # 60 tab(s), 0 total refill(s ), Maintena nce, Pharmacy : [facility] Oral (given by mouth) Ordered 4 2023 60.0 0055C-3 [facility] Preparation H Rapid Relief With Lidocaine topical cream 1 appl(s), Topical, BID, # 28 g, 1 total refill(s ), Acute, Pharmacy : [facility] Topica l (on the skin) Complet ed 01/19/20242023 28.0 0055C-3 [facility] ProAir HFA 90 mcg/inh inhalation aerosol 2 puff(s), Inhale, every 4 hr, PRN wheezing , X 7 days, # 8.5 g, 0 total refill(s ), Acute, 07/25/23 8:18:00 AM CDT, Pharmacy : [facility] Inhala tion (breat he in) Complet ed 07/25/2023 4 2023 8.5 0055C-3 [facility] PROPRANOLOL HCL 160MG CAP,SA TAKE 1 CAPSULE BY MOUTH EVERY DAY ORAL ACTIVE CARIDAD BENSON 2014 [facility] Restasis 0.05% ophthalmic emulsion 1 drop(s), Eye-Both , every 12 hr, # 60 EA, 11 total refill(s ), Maintena nce, Pharmacy : [facility] Both eyes Ordered 02/07/2025 5 2023 60.0 0055C-3 [facility] Saline Mist 0.65% nasal spray 1 spray(s) , Nostril- Both, 8 times per day, PRN dry nasal passages , # 44 mL, 0 total refill(s ), Maintena nce, Pharmacy : [facility] Nostri l-Both (into the nose) Ordered 5 2024 44.0 0055C-3 [facility] Saline Mist 0.65% nasal spray 1 spray(s) , Nostril- Both, 8 times per day, PRN dry nasal passages , # 44 mL, 0 total refill(s ), Hard Stop, Pharmacy : [facility] Nostri l-Both (into the nose) [...] total refill(s ), Acute, 06/01/24 2:03:10 PM [employer]ER, Pharmacy : [facility] IntraM uscula r (in a muscle ) Discont inued 06/01/20242024 1.0 0055C-3 [facility] Toradol 30 mg/mL injectable solution 30 mg, IntraMus cular, Once, # 1 mL, 0 total refill(s ), Physicia n Stop, 06/01/24 2:05:50 PM [employer], Pharmacy : [facility] IntraM uscula r (in a muscle ) Complet ed 06/01/20242024 1.0 0055C-3 75[facility] TRAMADOL HCL 50MG TAB TAKE ONE TABLET BY MOUTH EVERY DAY NEEDED ORAL ACTIVE LLOYD DENNIS 2014 [facility] Tylenol 325 mg oral tablet 1 tab(s), Oral, every 4 hr, PRN pain or fever, X 10 days, # 50 tab(s), 0 total refill(s ), Acute, 07/09/23 7:49:00 AM CDT, Pharmacy : [facility] Oral (given by mouth) Complet ed 07/09/2023 4 2023 50.0 0055C-3 75[facility] Vitamin B Complex oral capsule Oral, Daily, 0 total refill(s ), Maintena nce Oral (given by mouth) Ordered 2023 0055C-3 75th [facility] ZyrTEC 10 mg oral tablet 1 tab(s), Oral, Daily, PRN allergy symptoms , # 90 tab(s), 3 total refill(s ), Maintena nce, Pharmacy : [facility] Oral (given by mouth) Ordered 4 2023 90.0 0055C-3 75[facility] Allergies, Adverse Reactions, Alerts Combined list of allergies from 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 It does not include entries that were removed or entered in error. Substance Category Reaction Severity Reaction type Status Date Reported Comments Source Other Living Organism Allergy to substance Other Reaction Unknown Active Tree nuts, peanuts, soy, sesame, shrimp, egg white, wheat 0089C-[facility] Jere menon PROPRANOLOL Propensity to adverse reactions to drug (finding) Lethargy, Fatigue active 1 [facility] 15 propranolol Drug allergy Swelling (finding) Moderate Active 0055C-375 th [facility] PROPRANOLOL HYDROCHLORIDE Drug allergy (disorder) active 4 [facility] [employer] [place] pseudoephedri ne Drug allergy HIGH BP Moderate Active 2 0055C-375 th [facility]ash SEASONAL ALLERGIES Propensity to adverse reaction (finding) Sneezing, Allergic rhinitis, Watery eye active 3 [facility] Immunizations Combined list of available immunizations from the 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 Immunization Series Date Given Administered By Site Reaction Lot Number CVX Code Drug Regulatory Manager Status Comments Source INFLUENZA, UNSPECIFIED FORMULATION 2022 88 complet ed HISTORICA L INFORMATI ON - FROM PATIENT'S RECALL, [facility] OFFIC influenza, injectable, quadrivalent- pf 2021 [id number] 150 sanofi pasteur complet ed influenza , injectabl e, quadrival ent-pf 02/13/22 Given Ambulat ory Pharmac y INFLUENZA, INJECTABLE, QUADRIVALENT, PRESERVATIVE FREE [address] [facility] [facility] COVID Vaccine Pfizer 2020 [id number] PFIZER complet ed COVID Vaccine Pfizer 12/05/20 Given Ambulat ory Pharmac y COVID-19 (PFIZER), MRNA, LNP-S, PF, 30 MCG/0.3 ML DOSE 2 2020 208 complet ed PFR; [id number]; [address] [facility] [facility] COVID-19 (PFIZER), MRNA, LNP-S, PF, 30 MCG/0.3 ML DOSE 1 2020 208 complet ed PFR; [id number]; [address] [facility] hepatitis A adult vaccine 2020 [id number] sanofi pasteur complet ed hepatitis A adult vaccine 05/13/20 Given Ambulat ory Pharmac y influenza, injectable, quadrivalent 2018 [id number] 158 [employer] complet ed influenza , injectabl e, quadrival ent 02/11/19 Given Ambulat ory Pharmac y tetanus-dipht h toxoids (Td) adult/adol 2017 [id number] 09 sanofi pasteur complet ed tetanus-d iphth toxoids (Td) adult/ado l 03/18/18 Given Ambulat ory Pharmac y influenza, injectable, quadrivalent- pf 2017 [id number] 150 [employer] complet ed influenza , injectabl e, quadrival ent-pf 01/27/18 Given Ambulat ory Pharmac y INFLUENZA, SEASONAL, INJECTABLE 2017 141 complet ed [facility]IC typhoid Vi capsular polysaccharid e vac 2016 [id number] 101 sanofi pasteur complet ed typhoid Vi capsular polysacch aride vac 03/19/17 Given Ambulat ory Pharmac y typhoid Vi capsular polysaccharid e vac 2016 [id number] 101 sanofi pasteur complet ed typhoid Vi capsular polysacch aride vac 03/19/17 Given Ambulat ory Pharmac y typhoid Vi capsular polysaccharid e vaccine 1 2016 [id number] 101 Sanofi Pasteur ([facility]) complet ed typhoid Vi capsular polysacch aride vaccine DoD INFLUENZA, SEASONAL, INJECTABLE 2016 141 complet ed [facility] Influenza, inj, MDCK, quadrivalent- pf 2016 [id number] 171 [employer] complet ed Influenza , inj, MDCK, quadrival ent-pf 01/29/17 Given Ambulat ory Pharmac y Influenza, inj, MDCK, quadrivalent- pf 2016 [id number] 171 [employer] complet ed Influenza , inj, MDCK, quadrival ent-pf 01/29/17 Given Ambulat ory Pharmac y Influenza, injectable, Madin Jess Canine Kidney, preservative free, quadrivalent 1 2016 [id number] 171 [employer] (SEQ) comple t ed Influenza , injectabl e, Madin [place] Canine Kidney, preservat myke free, quadrival ent DoD influenza, seasonal, injectable-pf 2015 [id number] 140 [employer] complet ed influenza , seasonal, injectabl e-pf 03/13/16 Given Ambulat ory Pharmac y influenza, seasonal, injectable-pf 2015 [id number] 140 [employer] complet ed influenza , seasonal, injectabl e-pf 03/13/16 Given Ambulat ory Pharmac y Influenza, seasonal, injectable, preservative free 1 2015 [id number] 140 [employer] (SEQ) comple t ed Influenza , seasonal, injectabl e, preservat myke free DoD influenza, seasonal, injectable 2015 141 complet ed influenza , seasonal, injectabl e 02/02/16 Given Ambulat ory Pharmac y measles/mumps /rubella virus vaccine 2014 [id number] 03 [employer] Inc complet ed measles/m umps/rube lla virus vaccine 03/23/15 Given Ambulat ory Pharmac y measles/mumps /rubella virus vaccine 2014 [id number] 03 [employer] Inc complet ed measles/m umps/rube lla virus vaccine 03/23/15 Given Ambulat ory Pharmac y measles, mumps and rubella virus vaccine 2 2014 [id number] 03 Merck (MSD) complet ed measles, mumps and rubella virus vaccine DoD influenza, seasonal, injectable-pf 2014 [id number] 140 CSL [employer]ring complet ed influenza , seasonal, injectabl e-pf 01/25/15 Given Ambulat ory Pharmac y influenza, seasonal, injectable-pf 2014 [id number] 140 CSL Behring complet ed influenza , seasonal, injectabl e-pf 01/25/15 Given Ambulat ory Pharmac y Influenza, seasonal, injectable, preservative free 1 2014 [id number] 140 [employer] (CSL) complet ed Influenza , seasonal, [...] INJECTABLE, PRESERVATIVE FREE 2013 140 complet ed [facility] Influenza, injectable, MDCK-pf 2013 [id number] 153 Novartis Pharmaceutica ls complet ed Influenza , injectabl e, MDCK-pf 01/06/14 Given Ambulat ory Pharmac y Influenza, injectable, MDCK-pf 2013 [id number] 153 Novartis Pharmaceut[employer] ls complet ed Influenza , injectabl e, MDCK-pf 01/06/14 Given Ambulat ory Pharmac y Influenza, injectable, Madin Jess Canine Kidney, preservative free 1 2013 [id number] 153 Novartis Pharmaceutica l Rashawn. (NOV) complet ed Influenza , injectabl e, Madin Jess Canine Kidney, preservat myke free DoD influenza, injectable, quadrivalent- pf 2013 [id number] 150 Novartis Pharmaceutica ls complet ed influenza , injectabl e, quadrival ent-pf 04/21/13 Given Ambulat ory Pharmac y influenza, injectable, quadrivalent- pf 2013 [id number] 150 Novartis Pharmaceut[employer] ls complet ed influenza , injectabl e, quadrival ent-pf 04/21/13 Given Ambulat ory Pharmac y Influenza, injectable, quadrivalent, preservative free 1 2013 [id number] 150 Nov[employer]is Pharmaceut[employer] l Rashawn. (NOV) complet ed Influenza , injectabl e, quadrival ent, preservat myke free DoD INFLUENZA, SEASONAL, INJECTABLE, PRESERVATIVE FREE 2012 140 complet ed [facility] influenza, seasonal, injectable-pf 2011 [id number] 140 C[employer] Behring complet ed influenza , seasonal, injectabl e-pf 12/26/11 Given Ambulat ory Pharmac y influenza, seasonal, injectable-pf 2011 [id number] 140 [employer] complet ed influenza , seasonal, injectabl e-pf 12/26/11 Given Ambulat ory Pharmac y Influenza, seasonal, injectable, preservative free 1 2011 [id number] 140 [facility] [employer] ([facility]) complet ed Influenza , seasonal, injectabl e, preservat myke free DoD influenza, seasonal, injectable-pf 2010 [id number] 140 CSL Behring complet ed influenza , seasonal, injectabl e-pf 01/24/11 Given Ambulat ory Pharmac y influenza, seasonal, injectable-pf 2010 [id number] 140 [employer]ring complet ed influenza , seasonal, injectabl e-pf 01/24/11 Given Ambulat ory Pharmac y Influenza, seasonal, injectable, preservative free 1 2010 [id number] 140 [facility] [employer] ([facility]) complet ed Influenza , seasonal, injectabl e, preservat myke free DoD influenza, seasonal, injectable-pf 2010 140 sanofi pasteur complet ed influenza , seasonal, injectabl e-pf 01/06/11 Given Ambulat ory Pharmac y Influenza, seasonal, injectable, preservative free 0 2010 140 Sanofi Pasteur ([facility]) complet ed Influenza , seasonal, injectabl [...] DoD tetanus, diphtheria, acellular pertu is 2007 [id number] 115 [employer] complet ed tetanus, diphtheri a, acellular pertussis 09/20/07 Given Ambulat ory Pharmac y tuberculin purified protein derivative 2007 [id number] 96 [facility] [employer] complet ed tuberculi n purified protein derivativ e 09/20/07 Given Ambulat ory Pharmac y tetanus, diphtheria, acellular pertu is 2007 [id number] 115 [employer] complet ed tetanus, diphtheri a, acellular pertussis 09/20/07 Given Ambulat ory Pharmac y tetanus toxoid, reduced diphtheria toxoid, and acellular pertu is vaccine, adsorbed 1 2007 [id number] 115 [employer] ([facility]) complet ed tetanus toxoid, reduced diphtheri a toxoid, and acellular pertussis vaccine, adsorbed DoD TDAP 2007 115 complet ed [facility] [facility] 15 influenza virus vaccine,split 2006 [id number] 2EA [...] FLU,3 YRS (HISTORICAL) 2006 88 complet ed [facility] hepatitis A adult vaccine 2005 [id number] 52 [...] adult dosage DoD influenza virus vaccine,split 2004 [id number] 15 CSL Behring complet ed influenza virus vaccine,s plit 02/28/05 Given Ambulat ory Pharmac y influenza virus vaccine, split virus (incl. purified surface antigen)-reti red CODE 1 2004 [id number] 15 [employer] (AVB) complet ed influenza virus vaccine, split virus (incl. purified surface antigen)- retired CODE DoD TD(ADULT) UNSPECIFIED FORMULATION 2004 139 complet ed [facility] HCS influenza virus vaccine,split 2003 UNK 15 [...] Date Interpretation Specimen Comments Source Hematolog y [place] Absolute 0.3 x10^3/mc L 0.2 - 0.8103 07/09 N 0055A-[address] [place] [address] Hematolog y Lymph Absolute 1.3 x10^3/mc L 1.2 - 4.0103 07/09 N 0055A-[address] [place] [address] [facility] H[facility] y Lymphocyte % Auto 31.3 % 20.0 - 40.0 07/09 N 0055A-[address] [place] [address] Hematolog y Basophil % Auto 0.5 % 0.0 - 2.5 07/09 N 0055A-[address] [place] [address] [place] Hematolog y Baso Absolute 0.0 x10^3/mc L 0.0 - 0.1103 07/09 N 0055A-[address] [place] [address] Hematolog y Eosinophil % Auto 1 % 0 - 5 07/09 N 0055A-[address] [place] [address] Hematolog y Eos Absolute 0.1 x10^3/mc L 0.0 - 0.7103 07/09 N 0055A-[address] [place] [address] Hematolog y Neutrophil % Auto 59.3 % 46.0 - 77.0 07/09 N 0055A-[address] [place] [address] [place] Hematolog y Neutro Absolute 2.5 x10^3/mc L 2.0 - 7.0103 07/09 N 0055A-[address] [place] [address] Hematolog y Monocyte % Auto 8 % 1 - 12 07/09 N 0055A-[address] [place] [address] Chemistry eGFR CKD EPI 94 mL/min/1 .73_m2 [...] Severe decrease <15 Kidney failure 0055A-3 [facility] Hematolog y MCH 24 pg 28 - 33 07/09 L 0055A-3 75th [facility] [place] Hematolog y MCV 78 fL 80 - 97 07/09 L 0055A-3 75th [facility] [place] Hematolog y MCHC 30.9 g/dL 33.0 - 36.5 07/09 L 0055A-3 75th [facility] Hematolog y Differentia l? Auto (07/09/24 1:44 PM) 07/09 N 0055A-[address] [place] [address] Hematolog y Hemoglobin 11.4 g/dL 13.0 - 16.3 07/09 L 0055A-[address] [place] [address] Hematolog y Hematocrit 37 % 40 - 49 07/09 L 0055A-[address] [place] [address] Hematolog y RDW 17.0 % 11.0 - 14.9 07/09 H 0055A-[address] [place] [address] Hematolog y RBC 4.7 x10^6/mc L 4.0 - 5.6106 07/09 N 0055A-[address] [place] [address] Hematolog y WBC 4.3 x10^3/mc L 4.0 - 11.0103 07/09 N 0055A-[address] [place] [address] Hematolog y Platelets 256.0 x10^3/mc L 150.0 - 450.0103 07/09 N 0055A-[address] [place] [address] Hematolog y MPV 10.1 fL 7.4 - 10.4 07/09 N 0055A-[address] [place] [address] Chemistry Bilirubin Total 0.5 mg/dL 0.2 - 1.2 07/09 N 0055A-[address] [place] [address] Chemistry BUN/Creat Ratio 12 mg/dL 12 - 20 07/09 N 0055A-[address] [place] [address] Chemistry Protein Total 7.6 g/dL 6.4 - 8.3 07/09 N 0055A-[address] [place] [address] Chemistry BUN 12 mg/dL 8 - 26 07/09 N 0055A-[address] [place] [address] Chemistry Calcium 9.6 mg/dL 8.4 - 10.2 07/09 N 0055A-[address] [place] [address] Chemistry Chloride 106 mmol/L 98 - 107 07/09 N 0055A-[address] [place] [address] Chemistry Creatinine Level 1.00 mg/dL 0.72 - 1.25 07/09 N 0055A-[address] [place] [address] Chemistry CO2 27 mmol/L 22 - 29 07/09 N 0055A-[address] [place] [address] Chemistry Potassium Lvl 3.8 mmol/L 3.5 - 5.1 07/09 N 0055A-[address] [place] [address] Chemistry Glucose Lvl 91 mg/dL 74 - 99 07/09 N 0055A-[address] [place] [address] Chemistry Sodium 141 mmol/L 136 - 145 07/09 N 0055A-[address] [place] [address] Chemistry Alk Phos 57 U/L 40 - 150 07/09 N 0055A-[address] [place] [address] Chemistry AGAP 8.00 0.00 - 15.00 07/09 N 0055A-[address] [place] [address] Chemistry Albumin 4.10 g/dL 3.50 - 5.20 07/09 N 0055A-[address] [place] [address] Chemistry ALT 21 U/L 5 - 55 07/09 N -[address] [place] [address] Chemistry AST 21 U/L 5 - 34 07/09 N - [address] [place] [address] Chemistry Iron 25 ug/dL 59 - 158 [...] Prevention' s HIV diagnostic algorithm. Refer to [facility] Lab Guide for additional information : https://[employer]. [email or web address]/ kj/[email or web address]/EPIL ab/Pages/la b_guide.asp x Testing performed by Needish hannahDashbidessence ford. 5600A-U SAFmon[facility]ki EPILAB Miscellan eous Sendouts Atypical ANCA.LC <1:20 Neg:<1:20 03/12 Result Comment: The atypical pANCA pattern has been observed in a significant percentage of patients with ulcerative colitis, primary sclerosing cholangitis and autoimmune hepatitis. Performed At: [address] [id number] Cuate Echevarria MD Ph:[phone] Performed At: [address] [id number] Irma Jimenez PhD Ph:[phone] 0055A-3 [facility] Miscellan eous Sendouts Anti-PR3 Antibodies LC <0.2 unit(s) 0.0 - 0.9 03/12 0055A-3 [facility] Poderopediacellan eous Sendouts Perinuclear Ab.LC <1:20 Neg:<1:20 03/12 Result Comment: The presence of positive fluorescenc e exhibiting P-ANCA or C-ANCA patterns alone is not specific for the diagnosis of Ivette's Granulomato sis (WG) or microscopic polyangiiti s. Decisions about treatment should not be based solely on ANCA IFA results. The Internation al ANCA Group Consensus recommends follow up testing of positive sera with both W[place]- 3 and MPO-ANCA enzyme immunoassay s. As many as 5% serum samples are positive only by EIA. Ref. AM J Clin Pathol 1999;111:50 7-513. 0055A-3 [facility] [place] Miscellan eous Sendouts Cytoplasm+N eutrophil Ab.LC <1:20 Neg:<1:20 03/12 0055A-3 75th [facility] Tal[place] Miscellan eous Sendouts Anti-MPO Antibodies LC <0.2 unit(s) 0.0 - 0.9 03/12 0055A-3 [facility] [place] Immunolog y/Serolog y Saccharomyc es Cerevisiae IgG.LC 72.2 unit(s) 0.0 - 24.9 03/12 H Result Comment: Negative <20.0 Equivocal 20.1 - 24.9 Positive >or= 25.0 0055A-3 [facility] [place] Immunolog y/Serolog y Saccharomyc es Cerevisiae [...] controls had antibody for both. Performed At: [address] [place] [id number] Cuate Echevarria MD Ph:[phone] 44 5A-3 75th [facility] Tal[place] Hematolog y Retic Hemoglobin Equivalent 26.6 pg 28.2 - 36.6 02/15 L 0055A-3 75th [facility]- [place] Hematolog y Retic, Abs 0.067 x10^6/mc L 0.026 - 0.490143 02/15 N 0055A-3 [facility] [place] Hematolog y RBC 5.0 x10^6/mc L 4.0 - 5.6106 02/15 N 0055A-3 [facility] [place] Hematolog y Reticulocyt e % 1.33 % 0.50 - 1.81 02/15 N 0055A-3 [facility] [place] Hematolog y Differentia l? Auto (02/16/24 10:20 AM) 02/15 N 0055A-3 75th [facility]- [place] Hematolog y MCHC 31.0 g/dL 33.0 - 36.5 02/15 L 0055A-3 [facility] [place] Hematolog y MCV 75 fL 80 - 97 02/15 L 0055A-[address] [place] [address]- [facility] Hematolog y Hemoglobin 11.7 g/dL 13.0 - 16.3 02/15 L 0055A-[address] [place] [address]- [facility] Hematolog y MCH 23 pg 28 - 33 02/15 L 0055A-[address] [place] [address]- [facility] Hematolog y Hematocrit 38 % 40 - 49 02/15 L 0055A-[address] [place] [address]- [facility] Hematolog y WBC 4.6 x10^3/mc L 4.0 - 11.0103 02/15 N 0055A-[address] [place] [address] Hematolog y RDW 17.5 % 11.0 - 14.9 02/15 H 0055A-[address] [place] [address] Hematolog y MPV 9.9 fL 7.4 - 10.4 02/15 N 0055A-[address] [place] [address] Hematolog y Platelets 330.0 x10^3/mc L 150.0 - 450.0103 02/15 N 0055A-[address] [place] [address] Chemistry Calcium 9.8 mg/dL 8.4 - 10.2 02/15 N 0055A-[address] [place] [address] Chemistry BUN 13 mg/dL 8 - 26 02/15 N 0055A-[address] [place] [address] Chemistry BUN/Creat Ratio 13 mg/dL 12 - 20 02/15 N 0055A-[address] [place] [address] Chemistry Chloride 106 mmol/L 98 - 107 02/15 N 0055A-[address] [place] [address] Chemistry CO2 28 mmol/L 22 - 29 02/15 N 0055A-[address] [place] [address] Chemistry Albumin 4.00 g/dL 3.50 - 5.20 02/15 N 0055A-[address] [place] [address] Chemistry Creatinine Level 1.00 mg/dL 0.72 - 1.25 02/15 N 0055A-[address] [place] [address] Chemistry Alk Phos 58 U/L 40 - 150 02/15 N 0055A-[address] [place] [address] Chemistry Glucose Lvl 102 mg/dL 74 - 99 02/15 H 5A-[address] [place] [address] Chemistry ALT 13 U/L 5 - 55 02/15 N 0055A-[address] [place] [address] Chemistry Potassium Lvl 4.4 mmol/L 3.5 - 5.1 02/15 N 0055A-[address] [place] [address] Chemistry AST 20 U/L 5 - 34 02/15 N -[address] [place] [address] Chemistry Sodium 142 mmol/L 136 - 145 02/15 N -[address] [place] [address] Chemistry Bilirubin Total 0.6 mg/dL 0.2 - 1.2 02/15 N -[address] [place] [address] Chemistry Protein Total 7.4 g/dL 6.4 - 8.3 02/15 N -[address] [place] [address] Chemistry AGAP 8.00 0.00 - 15.00 02/15 N -[address] [place] [address] Chemistry Iron 20 ug/dL 59 - 158 02/15 L Interpretiv e Data: METHODOLOGY : Testing performed by colorimetri c assay. [facility] TIBC 205 ug/dL 250 - 400 02/15 L 5600A-U [facility] EPILAB Chemistry Transferrin Sat 10 % 14 - 50 02/15 L 5600A-U [facility] EPIL[facility] Chemistry UIBC, 185.0 ug/dL 112.0 - 347.0 02/15 N 5600A-U [facility] EPILAB Chemistry Ferritin Lvl 8.61 ng/mL 30.00 - 400.00 02/15 L Interpretiv e Data: METHODOLOGY : Testing performed by electrochem iluminescen t immunoassay (ECLIA). 5600A-U [facility] EPILAB Chemistry GGT 41 U/L 12 - 64 02/15 N 0055A-[address] [place] [address] Chemistry eGFR CKD EPI 94 mL/min/1 .73_m2 [...] Severe decrease <15 Kidney failure 0055A-3 75th [facility]- [place] Hematolog y Basophil % Auto 0.6 % 0.0 - 2.5 02/15 N 0055A-3 [facility] [place] Hematolog y Eos Absolute 0.1 x10^3/mc L 0.0 - 0.7103 02/15 N 0055A-3 [facility] [place] Hematolog y Baso Absolute 0.0 x10^3/mc L 0.0 - 0.1103 02/15 N 0055A-3 [facility] [place] Hematolog y [place] Absolute 0.4 x10^3/mc L 0.2 - 0.8103 02/15 N 0055A-[address] [place] [address] Hematolog y Monocyte % Auto 10 % 1 - 12 02/15 N 0055A-[address] [place] [address] Hematolog y Lymph Absolute 1.6 x10^3/mc L 1.2 - 4.0103 02/15 N 0055A- [address] [place] [address] Hematolog y Eosinophil % Auto 2 % 0 - 5 02/15 N - [address] [place] [address] Hematolog y Lymphocyte % Auto 34.6 % 20.0 - 40.0 02/15 N 0055A- [address] [place] [address] Hematolog y Neutro Absolute 2.5 x10^3/mc L 2.0 - 7.0103 02/15 N - [address] [place] [address] Hematolog y Neutrophil % Auto 53.4 % 46.0 - 77.0 02/15 N - [address] [place] [address] Hematolog y Hered Hemochromat osis DNA.LC COMMENT 01/11 Result Comment: Results: c.845G>A (p.Ccn074Lu r) - Detected, homozygous c.187C>G (p.Pvc02Png ) - Not Detected c.193A>T (p.Fjy83Aji ) - Not Detected Supports a diagnosis [...] for patients who are homozygous for c.845G>A (p.Jvx291Hk r) and have yet to experience clinical symptoms. Comments: The most common HFE variants associated with hereditary hemochromat osis are c.845G>A (p.Qpy146Xb r), c.187C>G (p.Lpe90Ezy ), c.193A>T (p.Khv55Cbw ). While patients homozygous for c.845G>A (p.Mom960Gu r) are the most likely to present clinical symptoms, less than 10% develop clinically significant iron overload with tissue and organ damage. Genetic counseling is recommended to discuss the potential clinical implication s of positive results, as well as recommendat ions for testing family members. Beauty Sales Consultant s are available for health care providers to discuss results at [phone] [facility] ([phone]). Test Details: Three variants analyzed: c.845G>A (p.Yfd190Zm r), commonly referred to as C282Y c.187C>G (p.Wcu31Rer ), commonly referred to as H63D c.193A>T (p.Nud48Zwp ), commonly referred to as S65C Methods/Chung [...] and its performance characteris tics determined by [employer]. It has not been cleared or approved by the Food and Drug Administrat ion. References: Matthew BR, Wilber PC, Demarco KV, Rasheed LW, Nahum ; [place] [employer]. Diagnosis and management of hemochromat osis: 2011 practice guideline by the [place] [employer] Liver Diseases. Hepatology. 2011 Oct;54(1):3 28-43. doi: 10.1002/hep .00975. PMID: 36744902; PMCID: PHU1612192. Jeremiah G, Marek P, Sybil DW, Charles H, Randee O, Aditya S, Alfred I, Wilmer M, Bert Mcpherson. [facility] best practice guidelines for the molecular genetic diagnosis of hereditary hemochromat osis (HH). Eur J Hum Jennifer. 2016 Jul;24(4):4 79-95. doi: 10.1038/h g.2015.128. Epub 2014Oct 16. PMID: 91662316; PMCID: LTD2701952. 0055A-3 [facility] Hematolog y RBC [...] 0.0 10^3/uL 01/11 Result Comment: Performed At: [address] [place] [id number] Irma Jimenez PhD Ph:[phone] - [address] [place] [address] Chemistry Transferrin Sat 13 % 14 - [...] [iU]/L 01/11 Result Comment: Performed At: [address] [id number] Irma Jimenez PhD [phone] [place] [address] Chemistry Haptoglobin 81 mg/dL 01/11 Result Comment: Performed At: [address] [place], [place] [id number] Irma Jimenez PhD Ph:[phone] 005-3 [facility] [place] Hematolog y [...] Sriram Gonzalez MD 01/24/24 15:04:12 EDT 0095A-8 [facility]- [facility]- PAT Hematolog y Lymphocyte % Auto 34.1 % 20.0 - 40.0 12/26 N 0055A-3 [facility] [place] Hematolog y Eos Absolute 0.1 x10^3/mc L 0.0 - 0.7103 12/26 N 0055A-3 [facility] [place] Hematolog y Eosinophil % Auto 1 % 0 - 5 12/26 N 0055A-3 [facility] [place] Hematolog y Baso Absolute 0.0 x10^3/mc L 0.0 - 0.1103 12/26 N 0055A-3 [facility] [place] Hematolog y Basophil % Auto 0.5 % 0.0 - 2.5 12/26 N 0055A-3 [facility] [place] Hematolog y Neutrophil % Auto 53.2 % 46.0 - 77.0 12/26 N 0055A-3 [facility] [place] Hematolog y Monocyte % Auto 10 % 1 - 12 12/26 N 0055A-3 [facility] [place] Hematolog y Neutro Absolute 2.2 x10^3/mc L 2.0 - 7.0103 12/26 N 0055A-3 [facility]- [place] Hematolog y [place] Absolute 0.4 x10^3/mc L 0.2 - 0.8103 12/26 N 0055A-3 [facility] [place] Hematolog y Lymph Absolute 1.4 x10^3/mc L 1.2 - 4.0103 12/26 N 0055A-3 [facility] [place] Hematolog y Stomatocyte s Occasion al (12/27/23 7:59 AM) 12/26 N 0055A-3 [facility] [place] Hematolog y PLT Morph Adequate (12/27/23 7:59 AM) 12/26 N 0055A-3 [facility] [place] Hematolog y Ovalocytes Occasion al (12/27/23 7:59 AM) 12/26 N 0055A-3 [facility] [place] Hematolog y Microcyte 1+ (12/27/23 7:59 AM) 12/26 N 0055A-3 [facility] [place] Hematolog y Hypochrom 1+ (12/27/23 7:59 AM) 12/26 N 0055A-3 [facility] [place] Hematolog y PLT Estimate Not Performe d (12/27/23 7:59 AM) 150.0 - 450.0 12/26 N 0055A-3 [facility] [place] Hematolog y Platelets 320.0 x10^3/mc L 150.0 - 450.0103 12/26 N 0055A-3 [facility]- [place] Hematolog y MPV 10.1 fL 7.4 - 10.4 12/26 N 0055A-3 [facility] [place] Hematolog y WBC 4.2 x10^3/mc L 4.0 - 11.0103 12/26 N 0055A-3 [facility] [place] Hematolog y MCV 73 [...] L 4.0 - 5.6106 12/26 N 0055A-[address] [place] [address] Hematolog y Hemoglobin 11.1 g/dL 13.0 - 16.3 12/26 L 0055A-[address] [place] [address] Hematolog y Hematocrit 36 % 40 - 49 12/26 L 0055A-[address] [place] [address] Hematolog y Differentia l? Auto+Mor ph *ABN* (12/27/23 7:59 AM) 12/26 A 0055A-[address] [place] [address] Chemistry Calcium 9.3 mg/dL 8.4 - 10.2 12/26 N 0055A-[address] [place] [address] Chemistry CO2 25 mmol/L 22 - 29 12/26 N 0055A-[address] [place] [address] Chemistry Chloride 106 mmol/L 98 - 107 12/26 N 0055A-[address] [place] [address] Chemistry BUN/Creat Ratio 11 mg/dL 12 - 20 12/26 L 0055A-[address] [place] [address] Chemistry BUN 11 mg/dL 8 - 26 12/26 N 0055A-[address] [place] [address] Chemistry Bilirubin Total 0.6 mg/dL 0.2 - 1.2 12/26 N 0055A-[address] [place] [address] Chemistry Protein Total 6.9 g/dL 6.4 - 8.3 12/26 N 0055A-[address] [place] [address] Chemistry AST 17 U/L 5 - 34 12/26 N 0055A-[address] [place] [address] Chemistry Sodium 140 mmol/L 136 - 145 12/26 N 0055A-[address] [place] [address] Chemistry ALT 16 U/L 5 - 55 12/26 N 0055A-[address] [place] [address] Chemistry Creatinine Level 1.00 mg/dL 0.72 - 1.25 12/26 N 0055A-[address] [place] [address] Chemistry Albumin 3.80 g/dL 3.50 - 5.20 12/26 N 0055A-[address] [place] [address] Chemistry AGAP 9.00 0.00 - 15.00 12/26 N 0055A-[address] [place] [address] Chemistry Potassium Lvl 3.8 mmol/L 3.5 - 5.1 12/[address] [place] [address] Chemistry Glucose Lvl 100 mg/dL 74 - 99 12/[address] [place] [address] Chemistry Alk Phos 49 U/L 40 - 150 12/[address] [place] [address] Chemistry eAvg Glucose 117 mg/dL 12/[address] [place] [address] Chemistry Hemoglobin A1c 5.7 % 4.0 - [...] the patient and ordering Hemoglobin Electrophor esis. [address] [place] [address] Chemistry Chol/HDL 4 mg/dL 12/[address] [place] [address] Chemistry HDL Cholesterol 47 mg/dL 40 - 59 12/26 N Interpretiv e Data: HDL (HIGH DENSITY LIPOPROTEIN ): ADULTS: Low: < 40 mg/dL High: >/= 60 mg/dL AGES 0 -19: Low: < 40 mg/dL Borderline Low: 40 - 45 mg/dL Acceptable: > 45 mg/dL [address] [place] [address] Chemistry Cholesterol Total 181 mg/dL 12/26 N Interpretiv e Data: According to the [place] [employer] : AGES 0-19: Desirable: < 170 mg/dL Borderline High: 170-199 mg/dL High Blood Cholesterol : >/= 200 mg/dL ADULTS: Desirable < 200 mg/dL Borderline High: 200-239 mg/dL High Blood Cholesterol : >/= 240 mg/dL [address] [place] [address] Chemistry Triglycerid es 114 mg/dL 7 - 149 12/26 N Interpretiv e Data: AGES 0-9: Desirable: < 75 mg/dL Borderline High: 75-99 mg/dL High: >/= 100 mg/dL AGES 10-19: Desirable: < 90 mg/dL Borderline High: 90-129 mg/dL High: >/= 130 mg/dL ADULTS: Desirable: < 150 mg/dL Borderline High: 150-199 mg/dL High: >/= 240 mg/dL Very High: >/= 500 mg/dL -[address] [place] [address] Chemistry LDL/HDL 3 12/26-[address] [place] [address] Chemistry LDL 134 mg/dL 100 - 130 12/26 H Interpretiv e Data: AGES 0-19: Desirable: < 110 mg/dL Borderline High: 110-129 mg/dL High: >/= 130 mg/dL ADULTS: Desirable: <100 mg/dL Near/above optimal: 100-130 mg/dL Borderline High: 131-159 mg/dL High: 160-189 mg/dL Very High: 190 mg/dL - [address] [place] [address] Chemistry Testosteron e Serum LC 606 ng/dL 12/26 Result Comment: Adult male reference interval is based on a population of healthy nonobese males (BMI <30) between 19 and 39 years old. Lizzeth et.al. JCEM 2017,102;11 61-1173. PMID: [id number]. Performed At: [address] [id number] Irma Jimenez PhD Ph:[phone] [place] [address] Chemistry Vitamin D 25 OH 69.5 ng/mL [...] n, and other findings. Testing performed by nVoqn ce. 5600A-U [facility] EPILAB Chemistry TSH 1.200 mIU/L 0.270 - 4.200 12/26 N Interpretiv e Data: Recommend: TPO/Thyrope roxidase Antibody when TSH result is > 4.2 uIU/mL 5600A-U [facility] EPILAB Chemistry PSA Total 0.72 ng/mL 0.05 - 2.00 12/26 N Interpretiv e Data: This assay shows no biotin interferenc e in samples with biotin concentrati ons up to 1200 ng/mL. 0117A-A F-ASU-5 9th [facility] Chemistry eGFR CKD EPI 94 [...] 15-29 Severe decrease <15 Kidney failure 0055A-[address] [place] [address] URINALYSI S (PAULETTE) COLOR OF URINE Yellow 01/13 Specimen Type: URINE Comment: Microscopic not indicated Ordering Provider: RAKESH PARRA Report Released Date/Time: Jan 13, 2023 12:12 PM Reporting Lab: [address] [phone] Performing Lab: [address] [address] [facility] URINALYSI S ([place]TTE) *URINE APPEARANCE Clear 01/13 Specimen Type: URINE Comment: Microscopic not indicated Ordering Provider: RAKESH PARRA Report Released Date/Time: Jan 13, 2023 12:12 PM Reporting Lab: [address] [address] Performing Lab: [address] [address] [facility] URINALYSI S ([place]TT[place]) PROTEIN [MASS/TIME] IN 24 HOUR URINE Negative mg/dL 01/13 Specimen Type: URINE Comment: Microscopic not indicated Ordering Provider: RAKESH PARRA Report Released Date/Time: Jan 13, 2023 12:12 PM Reporting Lab: [facility] [address] [facility] [address] Performing Lab: [address] [address] [facility] URINALYSI S ([place]) LEUKOCYTE ESTERASE [PRESENCE] IN URINE BY TEST STRIP Negative 01/13 Specimen Type: URINE Comment: Microscopic not indicated Ordering Provider: RAKESH PARRA Report Released Date/Time: Jan 13, 2023 12:12 PM Reporting Lab: [facility] [address] [facility] [address] Performing Lab: [address] [address] [facility] URINALYSI S () NITRITE [PRESENCE] IN URINE BY TEST STRIP Negative 01/13 Specimen Type: URINE Comment: Microscopic not indicated Ordering Provider: RAKESH PARRA Report Released Date/Time: Jan 13, 2023 12:12 PM Reporting Lab: [facility] [address] [facility] [address] Performing Lab: [address] [address] [facility] URINALYSI S () *URINE BLOOD Negative 01/13 Specimen Type: URINE Comment: Microscopic not indicated Ordering Provider: RAKESH PARRA Report Released Date/Time: Jan 13, 2023 12:12 PM Reporting Lab: [address] [address] Performing Lab: [address] [address] [facility] URINALYSI S () GLUCOSE [MASS/VOLUM E] IN 24 HOUR URINE Negative mg/dL 01/13 Specimen Type: URINE Comment: Microscopic not indicated Ordering Provider: RAKESH PARRA Report Released Date/Time: Jan 13, 2023 12:12 PM Reporting Lab: [address] [address] Performing Lab: [address] [address] [facility] URINALYSI S () KETONES [MASS/VOLUM E] IN URINE BY TEST STRIP Negative mg/dL 01/13 Specimen Type: URINE Comment: Microscopic not indicated Ordering Provider: RAKESH PARRA Report Released Date/Time: Jan 13, 2023 12:12 PM Reporting Lab: [address] [address] Performing Lab: [address] [address] [facility] URINALYSI S () PH OF URINE BY TEST STRIP 6.5 5.0 - 8.0 01/13 Specimen Type: URINE Comment: Microscopic not indicated Ordering Provider: RAKESH PARRA Report Released Date/Time: Jan 13, 2023 12:12 PM Reporting Lab: [facility] [address] [facility] [facility] [address] Performing Lab: [facility] [address] [facility] [address] [facility] URINALYSI S () SPECIFIC GRAVITY OF URINE 1.019 1.005 - 1.030 01/13 Specimen Type: URINE Comment: Microscopic not indicated Ordering Provider: RAKESH PARRA Report Released Date/Time: Jan 13, 2023 12:12 PM Reporting Lab: [facility] [address] [facility] [address] Performing Lab: [facility] [address] [place] [address] [facility] URINALYSI S () BILIRUBIN.T OTAL [PRESENCE] IN URINE BY TEST STRIP Negative 01/13 Specimen Type: URINE Comment: Microscopic not indicated Ordering Provider: RAKESH PARRA Report Released Date/Time: Jan 13, 2023 12:12 PM Reporting Lab: [facility] [address] [facility] [address] Performing Lab: [facility] [address] [place] [phone] [facility] URINALYSI S () *URINE UROBILINOGE N Normalmg /dL 01/13 Specimen Type: URINE Comment: Microscopic not indicated Ordering Provider: RAKESH PARRA Report Released Date/Time: Jan 13, 2023 12:12 PM Reporting Lab: [facility] [address] [facility] [address] Performing Lab: [facility] [address] [facility] [address] [facility] VITAMIN B12 COBALAMIN (VITAMIN B12) [MASS/VOLUM E] IN SERUM OR PLASMA 435.1 pg/mL 213 - 816 12/09 Specimen Type: SERUM No comment entered. Ordering Provider: KATHRYN MEDINA Report Released Date/Time: Dec 09, 2022 03:18 PM Reporting Lab: [facility] [address] [facility] [address] Performing Lab: [facility] [address] [facility] [address] [facility] Vital Signs Combined list of inpatient [...] 13:19:00 0055C -375th [facility] Mean Arterial Pressure, Cuff (Calc) 78 mm[Hg] [...] DC Date Status Disposition Source [place]([facility]) OUTPATIENT [id number] BIJU BEN E 12/03 Released with Work/Duty Limitations [place]([facility]- 2) [place](Health Promotion s) OUTPATIENT [id number] in process MARANDA CABRERA 12/29 Released w/o Limitations [place](Heal th Promoti ons) [place](Occupa tional Health [facility]) OUTPATIENT [id number] AG Inpro [facility] 12/29 Released w/o Limitations [place](Occu pationa l Health [facility]) [place](Optome try) OUTPATIENT [id number] rt eye exam MAMADOU SABA 01/30 Released w/o Limitations [place](Opto metry) [facility] OUTPATIENT [id number] 02/17 Released w/o Limitations Theater Facilit y [place](Physic al Exam Section) OUTPATIENT [id number] COMMISS 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 KAYA 05/03 Released w/o Limitations [place](Phys ical Exam Section ) [place]([facility] try) OUTPATIENT [id number] rou eye exam MAMADOU SABA 06/03 Released w/o Limitations [place](Opto metry) [place](Occupa tional Health [facility]) OUTPATIENT [id number] [facility] MARYBETH BURR 07/20 Released w/o Limitations [place]([facility]u [facility] hospital Health [facility]) [place]([facility] try) OUTPATIENT [id number] f/u on prk surgery MAMADOU SABA 09/17 Released w/o Limitations [place](Opto metry) [place]([facility] try) OUTPATIENT [id number] prk phy MAMADOU SABA 10/06 Released w/o Limitations [place](Opto metry) [employer]([facility] C IRR/SRP) OUTPATIENT [id number] LVL 1 MEL IRVIN Palomo 09/19 Released w/o Limitations [employer](M AHC IRR/SRP ) [employer](MAC H Irr/Immun ization) OUTPATIENT [id number] ISABELLS HALIMA BURGOS 09/21 Released w/o Limitations [employer](M ACH Irr/Imm unizati on) [employer](C Ambulator y) OUTPATIENT [id number] MARIA ALEJANDRA DOMINGUEZ 09/25 Released with Work/Duty Limitations [employer](T MC Ambulat ory) [employer](C Ambulator y) OUTPATIENT [id number] JASON GUSTAFSON 10/03 Released with Work/Duty Limitations [employer](T MC Ambulat ory) [employer]([facility] Ambulator y) OUTPATIENT [id number] BRIGITTE GUSTAFSON Wendy 10/24 Sick at Home/Quarter s [employer](T MC Ambulat ory) [employer]([facility]) OUTPATIENT [id number] 31yo c/o diadaniel and RIKKI Farmer 10/25 Sick at Home/Quarter s [employer]([facility]) [employer]([facility] Ambulator y) OUTPATIENT [id number] ROSALINA MCDONALD 11/07 Released with Work/Duty Limitations [employer](T MC Ambulat ory) [employer]([facility] Ambulator y) OUTPATIENT [id number] insect bite MOMO GIRALDO 11/21 Released w/o Limitations [employer](T MC Ambulat ory) [employer]([facility] Ambulator y) OUTPATIENT [id number] LIBIA CHURCHILL 11/25 Released w/o Limitations [employer](T MC Ambulat ory) [employer]([facility] Ambulator y) OUTPATIENT [id number] IKE BLACKWOOD 11/29 Sick at Home/Quarter s [facility](T MC Ambulat ory) JANINA Leavitt([facility] S[facility]A [facility]) TELE CONSULT [id number] Notes Entered by: MUNA FARLEY 15 Sep 2017 0945 ------- ------- ------- ------- -- TPR Poly-Ph armacy 18.03 Cohort #5 MUNA KELLEY 09/15 JANINA Leavitt([facility] S[facility]A [facility]) [facility] Outpatient Encounter [id number] Pennie ERNANDEZ A 03/30 [facility] Outpatient Encounter [id number] 07/05 [facility] Outpatient Encounter [id number] 07/06 [facility] CHIROPRACT MANJ 3-4 [facility] [id number] Diagnos is: ICD-10- CM M54.51 Vertebr ogenic low back pain SUJATAARAM 01/16 [facility] Outpatient Encounter [id number] 01/31 [facility] 0055C-375 th [facility]Sc kailash Between Visit [id number] 11/06 Discharge Disposition: Home or Self Care 0055C-3 75th [facility] 0055C-375 th [facility] kailash Between Visit [id number] 11/13 Discharge Disposition: Home or Self Care 0055C-3 75th [facility] 0055C-375 th [facility] kailash Between Visit [id number] 11/13 Discharge Disposition: Home or Self Care 0055C-3 [facility]th [facility] 0055A-375 th [facility] kailash Between Visit [id number] 11/15 Discharge Disposition: Home or Self Care 0055A-3 75th [facility] 0055A-375 th [facility] kailash PreRecurri ng [id number] BINU YOUNGBLOOD 11/28 0055A-3 [facility]th [facility] Procedures Combined list of: 1) Procedures from Department of Veterans Affairs facilities going back up to thelast 18 months, not all [place] non-surgical procedures are included; 2) All procedures from the Department of Defense facilities. Procedure Procedure Type Code Date Perfomer Comments Sourc e UNLISTED PROCEDURE, ANTERIOR SEGMENT OF EYE 006 [facility] PHOTOREFRACTIVE KERATECTOMY (PRK) 006 [facility] COMPUTERIZED CORNEAL TOPOGRAPHY, UNILATERAL 006 [facility] THERAPEUTIC, PROPHYLACTIC OR DIAGNOSTIC INJECTION (SPECIFY SUBSTANCE OR DRUG); INTRAVENOUS PUSH, SINGLE OR INITIAL SUBSTANCE/DRUG 008 [facility] SKIN TEST; TUBERCULOSIS, INTRADERMAL 008 [facility] PHYS/OTH QUALIFIED [employer] ARTISTIC DIRECTOR QUALIFIED,EDUCATION ,TRAIN,LICENSURE/RE GULATION (WHEN APPLICABLE) EDUC SER RENDERED TO PATS IN A GRP SETTING (EG,,OBESIT Y,OR DIABETIC INSTRUCT) 008 [facility] PUNCTURE ASPIRATION OF ABSCESS, HEMATOMA, BULLA, OR CYST 004 [facility] INJECTION, PENICILLIN G BENZATHINE, UP TO 2,400,000 UNITS 004 DoD FITTING OF SPECTACLES, EXCEPT FOR APHAKIA; MONOFOCAL 004 [facility] DETERMINATION OF REFRACTIVE STATE [facility] DETERMINATION OF REFRACTIVE STATE [facility] PHYS/OTH QUALIFIED [employer] ARTISTIC DIRECTOR QUALIFIED,EDUCATION ,TRAIN,LICENSURE/RE GULATION (WHEN APPLICABLE) EDUC SER RENDERED TO PATS IN A GRP SETTING (EG,,OBESIT Y,OR DIABETIC INSTRUCT) [facility] SELF-CARE/HOME MANAGMENT TRAIN (EG,ACT OF DAILY LIVING (ADL) &COMPENSAT TRAIN,MEAL PREPARATION,SAFETY PROCS,AND INSTRUCT IN USE OF ASST TECHNOLOGY DEV/ADPT EQUIP) DIR ONE-ON-ONE CONT,EA 15 MINUTES DoD FITTING OF SPECTACLES, EXCEPT FOR APHAKIA; MONOFOCAL [facility] OPHTHALMOLOGICAL SERVICES: MEDICAL EXAMINATION AND EVALUATION WITH INITIATION OF DIAGNOSTIC AND TREATMENT PROGRAM; INTERMEDIATE, NEW PATIENT [facility] PURE TONE AUDIOMETRY (THRESHOLD); AIR ONLY [facility] Injection, ketorolac tromethamine, per 15 mg 008 RIKKI FORREST Toradol 30mg IV given by Margo Dominique RN at 21:35 for c/o 11/18 abd pain Claudia Tan Supervised Injection Intravenous Supervised Injection Intravenous 52106 RIKKI ROQUE Puncture Aspiration Of Bulla Puncture Aspiration Of Bulla 77017 008 JANAY, JASON E [facility] Tdap Vaccine Tdap Vaccine 09063 HALIMA ANDERSON Immunization Administration Each Additional Vaccine HALIMA ANDERSON Skin Test Anergy Tuberculin Intradermal Skin Test Anergy Tuberculin Intradermal 94973 HALIMA ANDERSON Immunization Administration One Vaccine Immunization Administration One Vaccine [address].-Supervised Group Educational Services MEL WINKLER Dr. Services Analysis Of Computerized Data Special Tan Services Analysis Of Computerized Data 20387 MEL IRVIN Audiometry Group Testing Audiometry Group Testing [phone] ALBAROMEL Nguyen Claudia Threshold Audiogram (Pure Tone) Threshold Audiogram (Pure Tone) 57944 008 MEL IRVIN Claudia Ophthalmological Prior Patient Start Intermediate Level Care Ophthalmological Prior Patient Start Intermediate Level Care 93171 006 MAMADOU SABA Determination Of Refractive State Determination Of Refractive State 34534 006 MAMADOU SABA Ophthalmological New Patient Start Intermediate Level Care Ophthalmological New Patient Start Intermediate Level Care 73413 006 MAMADOU SABA Determination Of Refractive State Determination Of Refractive State 92161 006 MAMADOU SABA Screening Test Of Visual Acuity, Quantitative, Bilateral Screening Test Of Visual Acuity, Quantitative, Bilateral 14628 006 MARYBETH GARCIA Training And Self-Care Skills Training And Self-Care Skills 01495 006 MARYBETH GARCIA Ophthalmological New Patient Start Comprehensive Care Ophthalmological New Patient Start Comprehensive Care 72987 006 MAMADOU SABA Determination Of Refractive State Determination Of Refractive State 36996 006 MAMADOU SABA Spectacles Services Fitting Monofocals (Not For Aphakia) [employer] Services Fitting Monofocals (Not For Aphakia) 28350 006 MAMADOU SABA Determination Of Refractive State Determination Of Refractive State 60213 004 MAMADOU SABA [employer] Services Fitting Monofocals (Not For Aphakia) Spect[employer] Services Fitting Monofocals (Not For Aphakia) 31749 004 MAMADOU SABA Ophthalmological New Patient Start Intermediate Level Care Ophthalmological New Patient Start Intermediate Level Care 69696 004 MAMADOU SABA Ear Protector Attenuation Measurements Ear Protector Attenuation Measurements 35856 004 [facility] Screening Test Of Visual Acuity, Quantitative, Bilateral Screening Test Of Visual Acuity, Quantitative, Bilateral 42847 004 [facility] Threshold Audiogram (Pure Tone) Threshold Audiogram (Pure Tone) 90043 004 [facility] No data available for this section Ambulato ry Pharmacy Social History Combined list of available smoking, tobacco, and other social history from 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 Social History Type Response Date Comment Sourc e Tobacco smoking status PRIS VA-TOBACCO NEVER USED 01/13/2023 [facility] History of tobacco use VA-TOBACCO NEVER USED 12/23/2021 [facility] History of tobacco use VA-TOBACCO NEVER USED 12/24/2020 [facility] History of tobacco use VA-TOBACCO NEVER USED 12/20/2019 [facility] History of tobacco use VA-TOBACCO NEVER USED 11/13/2018 [facility] History of tobacco use V9 LIFETIME NON-USER OF TOBACCO 12/07/2017 JENNIFER RODRIGUEZ [facility] History of tobacco use V9 LIFETIME NON-TOBACCO USER 11/28/2013 [facility] History of tobacco use V9 LIFETIME NON-TOBACCO USER 10/07/2009 [facility] History of tobacco use V9 LIFETIME NON-TOBACCO USER 07/05/2007 [facility] History of tobacco use V9 LIFETIME NON-TOBACCO USER 02/07/2007 [facility] History of tobacco use V9 LIFETIME NON-TOBACCO USER 01/13/2006 [facility] This section is an empty social history section. [facility] Tobacco Cigarette use: Never-cigarette user. Other Tobacco [...] Therapy Tqs 1/> [facility] Each 15 Minutes 15746; 11/02/2024 13:23:00 CDT, 59, Spinal stenosis, lumbar region without neurogenic claudication Radiculopathy, lumbar region Pain in left hip Segmental and somatic dysfunction of lumbar region ? Chiropractic Manipulative Tx Spinal 3-4 [facility] 88786; 11/02/2024 13:23:00 CDT, Spinal stenosis, lumbar region without neurogenic claudication Radiculopathy, lumbar region Pain in left hip Segmental and somatic dysfunction of lumbar region Segmental and somatic dysfunction of thoracic region Seg... D iagnosis: 2 . R adiculopathy, lumbar region Comment: Ordered: Manual Therapy Tqs 1/> [facility] Each 15 Minutes [id number]; 11/02/2024 13:23:00 CDT, 59, Spinal stenosis, lumbar region without neurogenic claudication Radiculopathy, lumbar region Pain in left hip Segmental and somatic dysfunction of lumbar region ? Chiropractic Manipulative Tx Spinal 3-4 [facility] 72043; 11/02/2024 13:23:00 CDT, Spinal stenosis, lumbar region without neurogenic claudication Radiculopathy, lumbar region Pain in left hip Segmental and somatic dysfunction of lumbar region Segmental and somatic dysfunction of thoracic region Seg... D iagnosis: 3 . P ain in left hip Comment: Ordered: Manual Therapy Tqs 1/> Regions Each 15 Minutes [id number]; 11/02/2024 13:23:00 CDT, 59, Spinal stenosis, lumbar region without neurogenic claudication Radiculopathy, lumbar region Pain in left hip Segmental and somatic dysfunction of lumbar region ? Chiropractic Manipulative Tx Spinal 3-4 [facility] 31375; 11/02/2024 13:23:00 CDT, Spinal stenosis, lumbar region without neurogenic claudication Radiculopathy, lumbar region Pain in left hip Segmental and somatic dysfunction of lumbar region Segmental and somatic dysfunction of thoracic region Seg... D iagnosis: 4 . S egmental and somatic dysfunction of lumbar region Comment: Ordered: Manual Therapy Tqs 1/> Reg[facility] Each 15 Minutes [id number]; 11/02/2024 13:23:00 CDT, 59, Spinal stenosis, lumbar region without neurogenic claudication Radiculopathy, lumbar region Pain in left hip Segmental and somatic dysfunction of lumbar region ? Chiropractic Manipulative Tx Spinal 3-4 [facility] 30313; 11/02/2024 13:23:00 CDT, Spinal stenosis, lumbar region without neurogenic claudication Radiculopathy, lumbar region Pain in left hip Segmental and somatic dysfunction of lumbar region Segmental and somatic dysfunction of thoracic region Seg... D iagnosis: 5 . S egmental and somatic dysfunction of thoracic region Comment: Ordered: Chiropractic Manipulative Tx Spinal 3-4 [facility] 48539; 11/02/2024 13:23:00 CDT, Spinal stenosis, lumbar region without neurogenic claudication Radiculopathy, lumbar region Pain in left hip Segmental and somatic dysfunction of lumbar region Segmental and somatic dysfunction of thoracic region Seg... D iagnosis: 6 . S egmental and somatic dysfunction of cervical region Comment: Ordered: Chiropractic Manipulative Tx Spinal 3-4 [facility] 03839; 11/02/2024 13:23:00 CDT, Spinal stenosis, lumbar region [...] Physician [facility] [employer] Natalie Mayers [facility] Main Line DSN/Comm: [phone] / [phone] 11/02/24 13:22:10 Extracted from:Title: [facility] Author: LORRAINE NAQVI PA Date: [...] and agreement. LORRAINE NAQVI, 1st Lt, PAAyo [facility] [place] [address] Extracted from:Title: FTR - back pain Author: BINU LIN DC Date: 10/26/24 D iagnosis: 1 . R adiculopathy, lumbar region Comment: Ordered: Manual Therapy Tqs 1/> Regions Each 15 Minutes [id number]; 10/26/2024 15:27:00 CDT, 59, Radiculopathy, lumbar region Spinal stenosis, lumbar region without neurogenic claudication Pain in left hip Segmental and somatic dysfunction of lumbar region ? Chiropractic Manipulative Tx Spinal 3-4 [facility] 03313; 10/26/2024 15:27:00 CDT, Radiculopathy, lumbar region Spinal stenosis, lumbar region without neurogenic claudication Pain in left hip Segmental and somatic dysfunction of lumbar region Segmental and somatic dysfunction of thoracic region Seg... D iagnosis: 2 . S ryne stenosis, lumbar region without neurogenic claudication Comment: Ordered: Manual Therapy Tqs 1/> Regions Each 15 Minutes [id number]; 10/26/2024 15:27:00 CDT, 59, Radiculopathy, lumbar region Spinal stenosis, lumbar region without neurogenic claudication Pain in left hip Segmental and somatic dysfunction of lumbar region ? Chiropractic Manipulative Tx Spinal 3-4 [facility] 38178; 10/26/2024 15:27:00 CDT, Radiculopathy, lumbar region Spinal stenosis, lumbar region without neurogenic claudication Pain in left hip Segmental and somatic dysfunction of lumbar region Segmental and somatic dysfunction of thoracic region Seg... D iagnosis: 3 . P ain in left hip Comment: Ordered: Manual Therapy Tqs 1/> Regions Each 15 Minutes 52202; 10/26/2024 15:27:00 CDT, 59, Radiculopathy, lumbar region Spinal stenosis, lumbar region without neurogenic claudication Pain in left hip Segmental and somatic dysfunction of lumbar region ? Chiropractic Manipulative Tx Spinal 3-4 [facility] 63170; 10/26/2024 15:27:00 CDT, Radiculopathy, lumbar region Spinal stenosis, lumbar region without neurogenic claudication Pain in left hip Segmental and somatic dysfunction of lumbar region Segmental and somatic dysfunction of thoracic region Seg... D iagnosis: 4 . S egmental and somatic dysfunction of lumbar region Comment: Ordered: Manual Therapy Tqs 1/> Regions Each 15 Minutes [id number]; 10/26/2024 15:27:00 CDT, 59, Radiculopathy, lumbar region Spinal stenosis, lumbar region without neurogenic claudication Pain in left hip Segmental and somatic dysfunction of lumbar region ? Chiropractic Manipulative Tx Spinal 3-4 [facility] 47913; 10/26/2024 15:27:00 CDT, Radiculopathy, lumbar region Spinal stenosis, lumbar region without neurogenic claudication Pain in left hip Segmental and somatic dysfunction of lumbar region Segmental and somatic dysfunction of thoracic region Seg... D iagnosis: 5 . S egmental and somatic dysfunction of thoracic region Comment: Ordered: Chiropractic Manipulative Tx Spinal 3-4 [facility] 43744; 10/26/2024 15:27:00 CDT, Radiculopathy, lumbar region Spinal stenosis, lumbar region without neurogenic claudication Pain in left hip Segmental and somatic dysfunction of lumbar region Segmental and somatic dysfunction of thoracic region Seg... D iagnosis: 6 . S egmental and somatic dysfunction of cervical region Comment: Ordered: Chiropractic Manipulative Tx Spinal 3-4 [facility] 13901; 10/26/2024 15:27:00 CDT, Radiculopathy, lumbar region Spinal [...] [facility] Chiropractic Physician [facility] Main Line DSN/Comm: [phone] / [phone] 10/26/24 15:25:29 Extracted from:Title: [facility] Therapist OP Follow Up Note Author: TANA LIN, PhD, Psychology Date: 10/17/24 48 y/o , , male, [place] assigned to [facility] and working as [place] self[place] [facility] with symptoms consistent with depression including depressed [...] p t has received trauma-directed treatment in [id number] and reportedly symptoms are currently more manageable [...] Therapy Tqs 1/> Regions Each 15 Minutes 22240; 10/09/2024 13:28:00 CDT, 59, Radiculopathy, lumbar region Spinal stenosis, lumbar region without neurogenic claudication Segmental and somatic dysfunction of sacral region Segmental and somatic dysfunction of lumbar region D iagnosis: 2 . S ryne stenosis, lumbar region without neurogenic claudication Comment: Ordered: Manual Therapy Tqs 1/> Regions Each 15 Minutes 49461; 10/09/2024 13:28:00 CDT, 59, Radiculopathy, lumbar region Spinal stenosis, lumbar region without neurogenic claudication Segmental and somatic dysfunction of sacral region Segmental and somatic dysfunction of lumbar region ? Chiropractic Manipulative Tx Spinal 3-4 [facility] 77545; 10/09/2024 13:28:00 CDT, Spinal stenosis, lumbar region without neurogenic claudication Segmental and somatic dysfunction of sacral region Segmental and somatic dysfunction of thoracic region Segmental and somatic dysfunction of lumbar region D iagnosis: 3 . P ain in left hip Comment: Ordered: Chiropractic Manipulative Therapy, Extraspinal 23743; 10/09/2024 13:28:00 CDT, Pain in left hip D iagnosis: 4 . S egmental and somatic dysfunction of lumbar region Comment: Ordered: Manual Therapy Tqs 1/> Regions Each 15 Minutes 31809; 10/09/2024 13:28:00 CDT, 59, Radiculopathy, lumbar region Spinal stenosis, lumbar region without neurogenic claudication Segmental and somatic dysfunction of sacral region Segmental and somatic dysfunction of lumbar region ? Chiropractic Manipulative Tx Spinal 3-4 [facility] 69272; 10/09/2024 13:28:00 CDT, Spinal stenosis, lumbar region without neurogenic claudication Segmental and somatic dysfunction of sacral region Segmental and somatic dysfunction of thoracic region Segmental and somatic dysfunction of lumbar region D iagnosis: 5 . S egmental and somatic dysfunction of thoracic region Comment: Ordered: Chiropractic Manipulative Tx Spinal 3-4 [facility] 99232; 10/09/2024 13:28:00 CDT, Spinal stenosis, lumbar region without neurogenic claudication Segmental and somatic dysfunction of sacral region Segmental and somatic dysfunction of thoracic region Segmental and somatic dysfunction of lumbar region D iagnosis: 6 . S egmental and somatic dysfunction of sacral region Comment: Ordered: Manual Therapy Tqs 1/> [facility] Each 15 Minutes 17046; 10/09/2024 13:28:00 CDT, 59, Radiculopathy, lumbar region Spinal stenosis, lumbar region without neurogenic claudication Segmental and somatic dysfunction of sacral region Segmental and somatic dysfunction of lumbar region ? Chiropractic Manipulative Tx Spinal 3-4 [facility] 76526; 10/09/2024 13:28:00 CDT, Spinal stenosis, lumbar region without neurogenic claudication Segmental and somatic dysfunction of sacral region Segmental and somatic dysfunction of thoracic region Segmental and somatic dysfunction of lumbar region End of Orders Chiropractic Treatment Chiropractic Diversified Adjustments S upine to C/S P saifa T/S, S jose posture to [place], SI [...] [facility] Chiropractic Physician [facility] [place] [place] [facility] Main Line DSN/Comm: [phone] / [phone] 10/09/24 13:00:52 Extracted from:Title: [facility] Therapist OP Follow Up Note Author: TANA LIN, PhD, Psychology Date: 10/04/24 48 y/o , , [place], [place] assigned to [facility] and working as [place] self[place] [facility] [place] symptoms consistent with depression including depressed [...] p t has received trauma-directed treatment in [id number] and reportedly symptoms are currently more manageable [...] Therapy Tqs 1/> Regions Each 15 Minutes 59868; 09/25/2024 13:52:00 CDT, 59, Radiculopathy, lumbar region Spinal stenosis, lumbar region without neurogenic claudication Segmental and somatic dysfunction of sacral region Segmental and somatic dysfunction of lumbar region ? Chiropractic Manipulative Tx Spinal 3-4 [facility] 47717; 09/25/2024 13:52:00 CDT, Radiculopathy, lumbar region Spinal stenosis, lumbar region without neurogenic claudication Segmental and somatic dysfunction of sacral region Segmental and somatic dysfunction of lumbar region Segmental and somatic dy... D iagnosis: 2 . S ryne stenosis, lumbar region without neurogenic claudication Comment: Ordered: Manual Therapy Tqs 1/> Regions Each 15 Minutes 84541; 09/25/2024 13:52:00 CDT, 59, Radiculopathy, lumbar region Spinal stenosis, lumbar region without neurogenic claudication Segmental and somatic dysfunction of sacral region Segmental and somatic dysfunction of lumbar region ? Chiropractic Manipulative Tx Spinal 3-4 Regions [id number]; 09/25/2024 13:52:00 CDT, Radiculopathy, lumbar region Spinal stenosis, lumbar region without neurogenic claudication Segmental and somatic dysfunction of sacral region Segmental and somatic dysfunction of lumbar region Segmental and somatic dy... D iagnosis: 3 . S egmental and somatic dysfunction of sacral region Comment: Ordered: Manual Therapy Tqs 1/> Regions Each 15 Minutes [id number]; 09/25/2024 13:52:00 CDT, 59, Radiculopathy, lumbar region Spinal stenosis, lumbar region without neurogenic claudication Segmental and somatic dysfunction of sacral region Segmental and somatic dysfunction of lumbar region ? Chiropractic Manipulative Tx Spinal 3-4 Regions [id number]; 09/25/2024 13:52:00 CDT, Radiculopathy, lumbar region Spinal stenosis, lumbar region without neurogenic claudication Segmental and somatic dysfunction of sacral region Segmental and somatic dysfunction of lumbar region Segmental and somatic dy... D iagnosis: 4 . S egmental and somatic dysfunction of lumbar region Comment: Ordered: Manual Therapy Tqs 1/> Regions Each 15 Minutes [id number]; 09/25/2024 13:52:00 CDT, 59, Radiculopathy, lumbar region Spinal stenosis, lumbar region without neurogenic claudication Segmental and somatic dysfunction of sacral region Segmental and somatic dysfunction of lumbar region ? Chiropractic Manipulative Tx Spinal 3-4 Regions [id number]; 09/25/2024 13:52:00 CDT, Radiculopathy, lumbar region Spinal stenosis, lumbar region without neurogenic claudication Segmental and somatic dysfunction of sacral region Segmental and somatic dysfunction of lumbar region Segmental and somatic dy... D iagnosis: 5 . S egmental and somatic dysfunction of thoracic region Comment: Ordered: Chiropractic Manipulative Tx Spinal 3-4 Regions [id number]; 09/25/2024 13:52:00 CDT, Radiculopathy, lumbar region Spinal stenosis, lumbar region without neurogenic claudication Segmental and somatic dysfunction of sacral region Segmental and somatic dysfunction of lumbar region Segmental and somatic dy... D iagnosis: 6 . S egmental and somatic dysfunction of cervical region Comment: Ordered: Chiropractic Manipulative Tx Spinal 3-4 Regions [id number]; 09/25/2024 13:52:00 CDT, Radiculopathy, lumbar region Spinal [...] Physician [address] [employer] Readiness Natalie Mayers [facility] Main Line DSN/Comm: [phone] / [phone] 09/25/24 13:52:13 Extracted from:Title: FTR - Low back pain Author: BINU LIN DC Date: 09/12/24 D iagnosis: 1 . S ryne stenosis, lumbar region without neurogenic claudication Comment: Ordered: Manual Therapy Tqs 1/> Regions Each 15 Minutes [id number]; 09/12/2024 13:37:00 CDT, 59, Radiculopathy, lumbar region Spinal stenosis, lumbar region without neurogenic claudication Segmental and somatic dysfunction of sacral region Segmental and somatic dysfunction of lumbar region ? Chiropractic Manipulative Tx Spinal 3-4 Regions [id number]; 09/12/2024 13:37:00 CDT, Radiculopathy, lumbar region Spinal stenosis, lumbar region without neurogenic claudication Segmental and somatic dysfunction of sacral region Segmental and somatic dysfunction of lumbar region Segmental and somatic dy... D iagnosis: 2 . S egmental and somatic dysfunction of sacral region Comment: Ordered: Manual Therapy Tqs 1/> Regions Each 15 Minutes [id number]; 09/12/2024 13:37:00 CDT, 59, Radiculopathy, lumbar region Spinal stenosis, lumbar region without neurogenic claudication Segmental and somatic dysfunction of sacral region Segmental and somatic dysfunction of lumbar region ? Chiropractic Manipulative Tx Spinal 3-4 Regions [id number]; 09/12/2024 13:37:00 CDT, Radiculopathy, lumbar region Spinal stenosis, lumbar region without neurogenic claudication Segmental and somatic dysfunction of sacral region Segmental and somatic dysfunction of lumbar region Segmental and somatic dy... D iagnosis: 3 . S egmental and somatic dysfunction of lumbar region Comment: Ordered: Manual Therapy Tqs 1/> Regions Each 15 Minutes [id number]; 09/12/2024 13:37:00 CDT, 59, Radiculopathy, lumbar region Spinal stenosis, lumbar region without neurogenic claudication Segmental and somatic dysfunction of sacral region Segmental and somatic dysfunction of lumbar region ? Chiropractic Manipulative Tx Spinal 3-4 Regions [id number]; 09/12/2024 13:37:00 CDT, Radiculopathy, lumbar region Spinal stenosis, lumbar region without neurogenic claudication Segmental and somatic dysfunction of sacral region Segmental and somatic dysfunction of lumbar region Segmental and somatic dy... D iagnosis: 4 . S egmental and somatic dysfunction of thoracic region Comment: Ordered: Chiropractic Manipulative Tx Spinal 3-4 Regions [id number]; 09/12/2024 13:37:00 CDT, Radiculopathy, lumbar region Spinal stenosis, lumbar region without neurogenic claudication Segmental and somatic dysfunction of sacral region Segmental and somatic dysfunction of lumbar region Segmental and somatic dy... D iagnosis: 5 . R adiculopathy, lumbar region Comment: Ordered: Manual Therapy Tqs 1/> Regions Each 15 Minutes [id number]; 09/12/2024 13:37:00 CDT, 59, Radiculopathy, lumbar region Spinal stenosis, lumbar region without neurogenic claudication Segmental and somatic dysfunction of sacral region Segmental and somatic dysfunction of lumbar region ? Chiropractic Manipulative Tx Spinal 3-4 Regions [id number]; 09/12/2024 13:37:00 CDT, Radiculopathy, lumbar region Spinal stenosis, lumbar region without neurogenic claudication Segmental and somatic dysfunction of sacral region Segmental and somatic dysfunction of lumbar region Segmental and somatic dy... D iagnosis: S egmental and somatic dysfunction of cervical region Comment: Ordered: Chiropractic Manipulative Tx Spinal 3-4 Regions [id number]; 09/12/2024 13:37:00 CDT, Radiculopathy, lumbar region Spinal [...] [facility] Chiropractic Physician 375 [facility] Read[facility] Main Line DSN/Comm: [phone] / [phone] 09/12/24 13:30:18 Extracted from:Title: BEH Therapist OP Initial Visit Note Author: TANA LIN, PhD, Psychology Date: 09/10/24 48 y/o , , male, [place] assigned to [facility] and working as Cristobal [place] [facility] [place] consistent with depression including depressed [...] p t has received trauma-directed treatment in [id number] and reportedly symptoms are currently more manageable [...] target symptoms Methods of Monitoring Outcomes: Reduced KRZSYZTOF-7 score, Reduced PCL-5 score, Reduced PHQ-9 score [...] Therapy Tqs 1/> Regions Each 15 Minutes [id number]; 09/05/2024 11:53:00 CDT, 59, Spinal stenosis, lumbar region without neurogenic claudication Radiculopathy, lumbar region Pain in left hip Segmental and somatic dysfunction of sacral region Segmental and somatic dysfunction of lumbar region ? Chiropractic Manipulative Tx Spinal 3-4 Regions [id number]; 09/05/2024 11:53:00 CDT, Spinal stenosis, lumbar region without neurogenic claudication Radiculopathy, lumbar region Pain in left hip Segmental and somatic dysfunction of sacral region Segmental and somatic dysfunction of lumbar region Segme... D iagnosis: 2 . R adiculopathy, lumbar region Comment: Ordered: Manual Therapy Tqs 1/> Regions Each 15 Minutes [id number]; 09/05/2024 11:53:00 CDT, 59, Spinal stenosis, lumbar region without neurogenic claudication Radiculopathy, lumbar region Pain in left hip Segmental and somatic dysfunction of sacral region Segmental and somatic dysfunction of lumbar region ? Chiropractic Manipulative Tx Spinal 3-4 Regions [id number]; 09/05/2024 11:53:00 CDT, Spinal stenosis, lumbar region without neurogenic claudication Radiculopathy, lumbar region Pain in left hip Segmental and somatic dysfunction of sacral region Segmental and somatic dysfunction of lumbar region Segme... D iagnosis: 3 . P ain in left hip Comment: Ordered: Manual Therapy Tqs 1/> Regions Each 15 Minutes [id number]; 09/05/2024 11:53:00 CDT, 59, Spinal stenosis, lumbar region without neurogenic claudication Radiculopathy, lumbar region Pain in left hip Segmental and somatic dysfunction of sacral region Segmental and somatic dysfunction of lumbar region ? Chiropractic Manipulative Tx Spinal 3-4 Regions [id number]; 09/05/2024 11:53:00 CDT, Spinal stenosis, lumbar region without neurogenic claudication Radiculopathy, lumbar region Pain in left hip Segmental and somatic dysfunction of sacral region Segmental and somatic dysfunction of lumbar region Segme... D iagnosis: 4 . S egmental and somatic dysfunction of sacral region Comment: Ordered: Manual Therapy Tqs 1/> Regions Each 15 Minutes [id number]; 09/05/2024 11:53:00 CDT, 59, Spinal stenosis, lumbar region without neurogenic claudication Radiculopathy, lumbar region Pain in left hip Segmental and somatic dysfunction of sacral region Segmental and somatic dysfunction of lumbar region ? Chiropractic Manipulative Tx Spinal 3-4 Regions [id number]; 09/05/2024 11:53:00 CDT, Spinal stenosis, lumbar region without neurogenic claudication Radiculopathy, lumbar region Pain in left hip Segmental and somatic dysfunction of sacral region Segmental and somatic dysfunction of lumbar region Segme... D iagnosis: 5 . S egmental and somatic dysfunction of lumbar region Comment: Ordered: Manual Therapy Tqs 1/> Regions Each 15 Minutes [id number]; 09/05/2024 11:53:00 CDT, 59, Spinal stenosis, lumbar region without neurogenic claudication Radiculopathy, lumbar region Pain in left hip Segmental and somatic dysfunction of sacral region Segmental and somatic dysfunction of lumbar region ? Chiropractic Manipulative Tx Spinal 3-4 Regions [id number]; 09/05/2024 11:53:00 CDT, Spinal stenosis, lumbar region without neurogenic claudication Radiculopathy, lumbar region Pain in left hip Segmental and somatic dysfunction of sacral region Segmental and somatic dysfunction of lumbar region Segme... D iagnosis: 6 . S egmental and somatic dysfunction of thoracic region Comment: Ordered: Chiropractic Manipulative Tx Spinal 3-4 Regions [id number]; 09/05/2024 11:53:00 CDT, Spinal stenosis, lumbar region without neurogenic claudication Radiculopathy, lumbar region Pain in left hip Segmental and somatic dysfunction of sacral region Segmental and somatic dysfunction of lumbar region Segme... D iagnosis: 7 . S egmental and somatic dysfunction of cervical region Comment: Ordered: Chiropractic Manipulative Tx Spinal 3-4 Regions [id number]; 09/05/2024 11:53:00 CDT, Spinal stenosis, lumbar region [...] [facility] Chiropractic Physician [facility] [employer] Read[facility] D[facility]/Comm: [phone] / [phone] 09/05/24 11:10:24 Extracted from:Title: Optometry- acute Author: [...] Fitness [employer]. 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 R adiculopathy, lumbar region Comment: Ordered: Manual Therapy Tqs 1/> Regions Each 15 Minutes [id number]; 08/23/2024 13:50:00 CDT, 59, Spinal stenosis, lumbar region without neurogenic claudication Radiculopathy, lumbar region Pain in left hip Segmental and somatic dysfunction of lumbar region Segmental and somatic dysfunction of thoracic region ... ? Chiropractic Manipulative Tx Spinal 3-4 Regions [id number]; 08/23/2024 13:50:00 CDT, Spinal stenosis, lumbar region without neurogenic claudication Radiculopathy, lumbar region Pain in left hip Segmental and somatic dysfunction of lumbar region Segmental and somatic dysfunction of thoracic region Seg... D iagnosis: 2 . S ryne stenosis, lumbar region without neurogenic claudication Comment: Ordered: Manual Therapy Tqs 1/> Regions Each 15 Minutes [id number]; 08/23/2024 13:50:00 CDT, 59, Spinal stenosis, lumbar region without neurogenic claudication Radiculopathy, lumbar region Pain in left hip Segmental and somatic dysfunction of lumbar region Segmental and somatic dysfunction of thoracic region ... ? Chiropractic Manipulative Tx Spinal 3-4 Regions [id number]; 08/23/2024 13:50:00 CDT, Spinal stenosis, lumbar region without neurogenic claudication Radiculopathy, lumbar region Pain in left hip Segmental and somatic dysfunction of lumbar region Segmental and somatic dysfunction of thoracic region Seg... D iagnosis: 3 . P ain in left hip Comment: Ordered: Manual Therapy Tqs 1/> Regions Each 15 Minutes [id number]; 08/23/2024 13:50:00 CDT, 59, Spinal stenosis, lumbar region without neurogenic claudication Radiculopathy, lumbar region Pain in left hip Segmental and somatic dysfunction of lumbar region Segmental and somatic dysfunction of thoracic region ... ? Chiropractic Manipulative Tx Spinal 3-4 Regions [id number]; 08/23/2024 13:50:00 CDT, Spinal stenosis, lumbar region without neurogenic claudication Radiculopathy, lumbar region Pain in left hip Segmental and somatic dysfunction of lumbar region Segmental and somatic dysfunction of thoracic region Seg... D iagnosis: 4 . S egmental and somatic dysfunction of lumbar region Comment: Ordered: Manual Therapy Tqs 1/> Regions Each 15 Minutes [id number]; 08/23/2024 13:50:00 CDT, 59, Spinal stenosis, lumbar region without neurogenic claudication Radiculopathy, lumbar region Pain in left hip Segmental and somatic dysfunction of lumbar region Segmental and somatic dysfunction of thoracic region ... ? Chiropractic Manipulative Tx Spinal 3-4 Regions [id number]; 08/23/2024 13:50:00 CDT, Spinal stenosis, lumbar region without neurogenic claudication Radiculopathy, lumbar region Pain in left hip Segmental and somatic dysfunction of lumbar region Segmental and somatic dysfunction of thoracic region Seg... D iagnosis: 5 . S egmental and somatic dysfunction of thoracic region Comment: Ordered: Manual Therapy Tqs 1/> Regions Each 15 Minutes [id number]; 08/23/2024 13:50:00 CDT, 59, Spinal stenosis, lumbar region without neurogenic claudication Radiculopathy, lumbar region Pain in left hip Segmental and somatic dysfunction of lumbar region Segmental and somatic dysfunction of thoracic region ... ? Chiropractic Manipulative Tx Spinal 3-4 Regions [id number]; 08/23/2024 13:50:00 CDT, Spinal stenosis, lumbar region without neurogenic claudication Radiculopathy, lumbar region Pain in left hip Segmental and somatic dysfunction of lumbar region Segmental and somatic dysfunction of thoracic region Seg... D iagnosis: 6 . S egmental and somatic dysfunction of cervical region Comment: Ordered: Manual Therapy Tqs 1/> Regions Each 15 Minutes [id number]; 08/23/2024 13:50:00 CDT, 59, Spinal stenosis, lumbar region without neurogenic claudication Radiculopathy, lumbar region Pain in left hip Segmental and somatic dysfunction of lumbar region Segmental and somatic dysfunction of thoracic region ... ? Chiropractic Manipulative Tx Spinal 3-4 Regions [id number]; 08/23/2024 13:50:00 CDT, Spinal stenosis, lumbar region [...] Physician 375 Operational Medical Readiness Natalie KEYS, [facility] Main Line DSN/Comm: [phone] / [phone] 08/23/24 13:34:16 Extracted from:Title: WOMC Sinusitis/Eye irritation [...] U April Menjivar, 1st Lt, [place] [address] Please note that this dictation was completed with computer voice recognition software, Vir2us. Quite often unanticipated grammatical, syntax, homophones, and [...] Therapy Tqs 1/> Regions Each 15 Minutes [id number]; 08/15/2024 13:27:00 CDT, 59, Spinal stenosis, lumbar region without neurogenic claudication Radiculopathy, lumbar region Segmental and somatic dysfunction of lumbar region ? Chiropractic Manipulative Tx Spinal 3-4 Regions [id number]; 08/15/2024 13:27:00 CDT, Spinal stenosis, lumbar region without neurogenic claudication Radiculopathy, lumbar region Segmental and somatic dysfunction of lumbar region Segmental and somatic dysfunction of thoracic region Segmental and somatic... D iagnosis: 2 . S ryne stenosis, lumbar region without neurogenic claudication Comment: Ordered: Manual Therapy Tqs 1/> Regions Each 15 Minutes [id number]; 08/15/2024 13:27:00 CDT, 59, Spinal stenosis, lumbar region without neurogenic claudication Radiculopathy, lumbar region Segmental and somatic dysfunction of lumbar region ? Chiropractic Manipulative Tx Spinal 3-4 Regions [id number]; 08/15/2024 13:27:00 CDT, Spinal stenosis, lumbar region without neurogenic claudication Radiculopathy, lumbar region Segmental and somatic dysfunction of lumbar region Segmental and somatic dysfunction of thoracic region Segmental and somatic... D iagnosis: 3 . S egmental and somatic dysfunction of lumbar region Comment: Ordered: Manual Therapy Tqs 1/> Regions Each 15 Minutes [id number]; 08/15/2024 13:27:00 CDT, 59, Spinal stenosis, lumbar region without neurogenic claudication Radiculopathy, lumbar region Segmental and somatic dysfunction of lumbar region ? Chiropractic Manipulative Tx Spinal 3-4 Regions [id number]; 08/15/2024 13:27:00 CDT, Spinal stenosis, lumbar region without neurogenic claudication Radiculopathy, lumbar region Segmental and somatic dysfunction of lumbar region Segmental and somatic dysfunction of thoracic region Segmental and somatic... D iagnosis: 4 . S egmental and somatic dysfunction of cervical region Comment: Ordered: Chiropractic Manipulative Tx Spinal 3-4 Regions [id number]; 08/15/2024 13:27:00 CDT, Spinal stenosis, lumbar region without neurogenic claudication Radiculopathy, lumbar region Segmental and somatic dysfunction of lumbar region Segmental and somatic dysfunction of thoracic region Segmental and somatic... D iagnosis: 5 . S egmental and somatic dysfunction of thoracic region Comment: Ordered: Chiropractic Manipulative Tx Spinal 3-4 Regions [id number]; 08/15/2024 13:27:00 CDT, Spinal stenosis, lumbar region [...] [facility] Chiropractic Physician 375 [facility] Medical Readiness [facility] Main Line DSN/Comm: [phone] / [phone] 08/15/24 13:24:40 Extracted from:Title: FTR - Low back pain Author: BINU LIN DC Date: 08/08/24 D iagnosis: 1 . R adiculopathy, lumbar region Comment: Ordered: Chiropractic Manipulative Tx Spinal 3-4 Regions [id number]; 08/08/2024 13:37:00 CDT, Radiculopathy, lumbar region Spinal stenosis, lumbar region without neurogenic claudication Pain in left hip Segmental and somatic dysfunction of lumbar region Segmental and somatic dysfunction of thoracic region Seg... D iagnosis: 2 . S ryne stenosis, lumbar region without neurogenic claudication Comment: Ordered: Manual Therapy Tqs 1/> Regions Each 15 Minutes [id number]; 08/08/2024 13:37:00 CDT, 59, Spinal stenosis, lumbar region without neurogenic claudication Pain in left hip Segmental and somatic dysfunction of lumbar region ? Chiropractic Manipulative Tx Spinal 3-4 Regions [id number]; 08/08/2024 13:37:00 CDT, Radiculopathy, lumbar region Spinal stenosis, lumbar region without neurogenic claudication Pain in left hip Segmental and somatic dysfunction of lumbar region Segmental and somatic dysfunction of thoracic region Seg... D iagnosis: 3 . P ain in left hip Comment: Ordered: Manual Therapy Tqs 1/> Regions Each 15 Minutes [id number]; 08/08/2024 13:37:00 CDT, 59, Spinal stenosis, lumbar region without neurogenic claudication Pain in left hip Segmental and somatic dysfunction of lumbar region ? Chiropractic Manipulative Tx Spinal 3-4 Regions [id number]; 08/08/2024 13:37:00 CDT, Radiculopathy, lumbar region Spinal stenosis, lumbar region without neurogenic claudication Pain in left hip Segmental and somatic dysfunction of lumbar region Segmental and somatic dysfunction of thoracic region Seg... D iagnosis: 4 . S egmental and somatic dysfunction of sacral region Comment: Ordered: Chiropractic Manipulative Tx Spinal 3-4 Regions [id number]; 08/08/2024 13:37:00 CDT, Radiculopathy, lumbar region Spinal stenosis, lumbar region without neurogenic claudication Pain in left hip Segmental and somatic dysfunction of lumbar region Segmental and somatic dysfunction of thoracic region Seg... D iagnosis: 5 . S egmental and somatic dysfunction of lumbar region Comment: Ordered: Manual Therapy Tqs 1/> Regions Each 15 Minutes [id number]; 08/08/2024 13:37:00 CDT, 59, Spinal stenosis, lumbar region without neurogenic claudication Pain in left hip Segmental and somatic dysfunction of lumbar region ? Chiropractic Manipulative Tx Spinal 3-4 Regions [id number]; 08/08/2024 13:37:00 CDT, Radiculopathy, lumbar region Spinal stenosis, lumbar region without neurogenic claudication Pain in left hip Segmental and somatic dysfunction of lumbar region Segmental and somatic dysfunction of thoracic region Seg... D iagnosis: 6 . S egmental and somatic dysfunction of thoracic region Comment: Ordered: Chiropractic Manipulative Tx Spinal 3-4 Regions [id number]; 08/08/2024 13:37:00 CDT, Radiculopathy, lumbar region Spinal [...] Physician 375 Operational Medical Readiness Natalie Mayers [facility] Main Line DSN/Comm: [phone] / [phone] 08/08/24 13:13:15 Extracted from:Title: Referral for IDES [...] w ith the s upport o f [facility] Garcia, AJAYS, maurisio h alexxe a greed to manage this S oldier d espite t he fact t hat he i s not in t heir catchment a abiodun) f or f urther evaluation and if qualifying, a s econd signature to initial the IDEs p rocess. 2. 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 Delmy nguyen performed multiple hospital visits including of his SM s who was brutally murdered. 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 ( 1 unit is 3 months long 40 hrs a week). 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 I n Feb 2023 he gained ADOS orders again and is currently serving on them. After conducting a head-to-toe physical examination and review of his medical records (JLV and LOGAN), I am concerned that he needs better documentation with regards to the followin) Bartlett delmy as been diagnosed with PTSD with [...] right shoulder (previously rated as DC 5203) Bartlett tore shoulder in LOD. 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 F or pain management he receives Botox injections every 2 months. 8) 20% rating for lumbar disc disease Bartlett has had many laboratory animal care veterinarian apts as well as Spinal Epidural injections [...] Tim had colitis in [address] [facility]. Initially thought to be a normal stomach bug, it went undiagnosed. A ccompanied with fevers, was placed on quarters for last 1.5 weeks of training for that summer. Ky aguero attempted to go home but was too ill to continue flight in [facility] airport. Delmy nguyen was transported VIA ambulance to local hospital where he had CT scan and diagnosed with colitis. Delmy nguyen had 104.5 fever and the infection? j umped ship and attacked his heart 2xs. E KG confirmed 2 heart attacks. Delmy nguyen was transferred to cardiac floor then ultimately the ICU where they gave a dozen IV AB. ?Bartlett recovered but was never the same. Ky Tim feels that this reoccurred several times but went misdiagnosed several times since then. A lso, 2023 he was diagnosed again with colitis and enteritis. 12) Neck pain Ky Tim has chronic neck pain and has seen chiropractic care. R ecently, has developed resistance and intolerance [...] syndrome 5. C rohn disease Extracted from:Title: [facility]- Neck and anal pain Author: ANDREW PAVON MD Date: 07/31/24 1. A [facility] fissure - [employer] profile provided - GI [...] any other concerns. Patient can also access [employer] at [email or web address] to leave message with PCM Team. A total of 20 minutes was spent on this visit reviewing previous records, counseling the patient on the listed diagnoses, reviewing/ordering tests, adjusting medications, and/or documenting the findings in this note. //SIGNED// Capt Andrew Pavon DO Manufactured Buildings Supervisor Physician, PGY-2 [facility], HCOS/SGGF [facility] Talib KEYS This note was dictated using [employer] dictation software. While it was proofread for errors, there may still be grammatical and dictation errors. Extracted from:Title: FTR - Low back pain Author: BINU LIN DC Date: 07/27/24 D iagnosis: 1 . R adiculopathy, lumbar region Comment: Ordered: Manual Therapy Tqs 1/> Regions Each 15 Minutes [id number]; 07/27/2024 09:32:00 CDT, 59, Radiculopathy, lumbar region Spinal stenosis, lumbar region without neurogenic claudication Segmental and somatic dysfunction of lumbar region ? Chiropractic Manipulative Tx Spinal 3-4 Regions [id number]; 07/27/2024 09:32:00 CDT, Radiculopathy, lumbar region Spinal stenosis, lumbar region without neurogenic claudication Segmental and somatic dysfunction of lumbar region Segmental and somatic dysfunction of thoracic region Segmental and somatic... D iagnosis: 2 . S ryne stenosis, lumbar region without neurogenic claudication Comment: Ordered: Manual Therapy Tqs 1/> Regions Each 15 Minutes [id number]; 07/27/2024 09:32:00 CDT, 59, Radiculopathy, lumbar region Spinal stenosis, lumbar region without neurogenic claudication Segmental and somatic dysfunction of lumbar region ? Chiropractic Manipulative Tx Spinal 3-4 Regions [id number]; 07/27/2024 09:32:00 CDT, Radiculopathy, lumbar region Spinal stenosis, lumbar region without neurogenic claudication Segmental and somatic dysfunction of lumbar region Segmental and somatic dysfunction of thoracic region Segmental and somatic... D iagnosis: 3 . S egmental and somatic dysfunction of lumbar region Comment: Ordered: Manual Therapy Tqs 1/> Regions Each 15 Minutes [id number]; 07/27/2024 09:32:00 CDT, 59, Radiculopathy, lumbar region Spinal stenosis, lumbar region without neurogenic claudication Segmental and somatic dysfunction of lumbar region ? Chiropractic Manipulative Tx Spinal 3-4 Regions [id number]; 07/27/2024 09:32:00 CDT, Radiculopathy, lumbar region Spinal stenosis, lumbar region without neurogenic claudication Segmental and somatic dysfunction of lumbar region Segmental and somatic dysfunction of thoracic region Segmental and somatic... D iagnosis: 4 . S egmental and somatic dysfunction of thoracic region Comment: Ordered: Chiropractic Manipulative Tx Spinal 3-4 Regions [id number]; 07/27/2024 09:32:00 CDT, Radiculopathy, lumbar region Spinal stenosis, lumbar region without neurogenic claudication Segmental and somatic dysfunction of lumbar region Segmental and somatic dysfunction of thoracic region Segmental and somatic... D iagnosis: 5 . S egmental and somatic dysfunction of cervical region Comment: Ordered: Chiropractic Manipulative Tx Spinal 3-4 Regions [id number]; 07/27/2024 09:32:00 CDT, Radiculopathy, lumbar region Spinal [...] RMSK Chiropractic Physician [address] [facility] Talib [facility] Main Line DSN/Comm: [phone] / [phone] 07/27/24 09:39:34 Extracted from:Title: [facility] MARVIN/OME Author: LORRAINE NAQVI PA Date: [...] agreement. LORRAINE NAQVI E, 1st Lt, PAErwinC [facility] [place] [address] Extracted from:Title: [facility] LBP Author: ERIK VERA, DO Date: [...] Duration: 5 days, First Dose: 06/01/2024 13:00:00 COMPRESSOR STATION ENGINEER, Stop Date: 06/06/2024 12:59:00 COMPRESSOR STATION ENGINEER, 06/01/2024 12:02:00 COMPRESSOR STATION ENGINEER Orders: ketorolac(Toradol 15 mg/mL injectable solution), 15 mg, IntraMuscular, every 6 hr, # 1 mL, 0 total refill(s), Acute, 06/02/2024, Pharmacy: [facility] [Not filled] Capt Lynn DO, [employer], Family Physician [facility]/Owner Professional Engineer [facility] Residency Program in [place], [place] [address] [address] Extracted from:Title: [facility] colitis work-up Author: ERIK VERA, DO [...] [employer] Capt Lynn DO, [employer], Family Physician [facility]/Owner Professional Engineer [facility] Residency Program in [place], [place] [address] [address] Extracted from:Title: [facility] Sick call - F/u Feb 16 ER visit for colitis Author: FADUMO CASTRO MD Date: 02/21/24 1. E nterocolitis PCM Chris 48 y.o. 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 P resbyopia -New Spectacle rx dispensed today as seen below (Manifest=Final Rx), lens options recommended per pt ADLs MANIFEST REFRACTION: OD: - 0.50-0.56x517. . . . . . 20/15 OS: pl-0.22j879. . . . . . 2 0/15 Near Add: + 1.75 20/20 Computer Rx OD: +0.50-0.13h614 OS: +1.00-0.28j641 - Discussed 2 pair requirement ([facility]). - Glasses ordered in SRTS. F OC [...] completed for patient to take to unit ([facility], etc) to update into their MEDPROS system. RTC first avail for DFE only (ok to dilate at screening), otherwise 1 year Ordered: cycloSPORINE ophthalmic(Restasis 0.05% ophthalmic emulsion), 1 drop(s), Eye-Both, every 12 hr, # 60 EA, 11 total refill(s), Maintenance, 1 drop(s) Eye-Both every 12 hr, Pharmacy: [facility] [Not filled] Diagnosis: 1 . K eratoconjunctivitis sicca Comment: Ordered: Restasis 0.05% ophthalmic emulsion; 1 drop(s), Eye-Both, every 12 hr, # 60 EA, 11 total refill(s), Maintenance, 1 drop(s) Eye-Both every 12 hr, Pharmacy: [facility] [Not filled] ? Ophthalmological Medical Xm&Eval Compre New Pt Vst [id number]; 02/07/2024 14:58:00 CDT ? Fitting Spectacles Xcpt Aphakia Monofocal [id number]; 02/07/2024 14:58:00 CDT ? Determination Refractive State [id number]; 02/07/2024 14:58:00 CDT D iagnosis: 2 . P resbyopia Comment: Ordered: Restasis 0.05% ophthalmic emulsion; 1 drop(s), Eye-Both, every 12 hr, # 60 EA, 11 total refill(s), Maintenance, 1 drop(s) Eye-Both every 12 hr, Pharmacy: [facility] [Not filled] ? Ophthalmological Medical Xm&Eval Compre New Pt /> Vst [id number]; 02/07/2024 14:58:00 CDT ? Fitting Spectacles Xcpt Aphakia Monofocal [id number]; 02/07/2024 14:58:00 CDT ? Determination Refractive State 95778; 02/07/2024 14:58:00 CDT End of Orders Extracted [...] O rdered: Fundus Photography w/Interpretation + Report [id number]; 08/19/2022 08:44:00 EDT ? Ophthalmological [place] [id number]; 08/19/2022 08:44:00 EDT End of Orders Future Appointments Appointment Date: 11/28/2024 01:00:00 PM Scheduled Provider: BINU LIN DC Location: [id number] Appointment Type: CHIRO FTR Appointment Date: 12/04/2024 08:00:00 AM Scheduled Provider: TANA LIN, PhD, Psychology Location: [id number] Appointment Type: FTR Appointment Date: 12/06/2024 12:40:00 PM Scheduled Provider: APRIL SELBY PA, Family Medicine Location: [id number] Appointment Type: ROSARIO FTR Appointment Date: 12/07/2024 03:00:00 PM Scheduled Provider: BINU LIN DC Location: [address] [place] [address] Appointment Type: CHIRO FTR Future Scheduled TestsRadiologyXR Spine Cervical 4 or 5 Views 07/31/24XR Spine Thoracic 4+ Views 07/31/24 11/23/2024 [address] [place], [place] [address]Jolanta Assessment and Plan Extracted from:Title : FTR - back pain Author: BINU LIN DC Date: 11/02/24 D iagnosis: 1 . S ryne stenosis, lumbar region without neurogenic claudication Comment: Ordered: Manual Therapy Tqs 1/> Regions Each 15 Minutes [id number]; 11/02/2024 13:23:00 CDT, 59, Spinal stenosis, lumbar region without neurogenic claudication Radiculopathy, lumbar region Pain in left hip Segmental and somatic dysfunction of lumbar region ? Chiropractic Manipulative Tx Spinal 3-4 Regions [id number]; 11/02/2024 13:23:00 CDT, Spinal stenosis, lumbar region without neurogenic claudication Radiculopathy, lumbar region Pain in left hip Segmental and somatic dysfunction of lumbar region Segmental and somatic dysfunction of thoracic region Seg... D iagnosis: 2 . R adiculopathy, lumbar region Comment: Ordered: Manual Therapy Tqs 1/> Regions Each 15 Minutes [id number]; 11/02/2024 13:23:00 CDT, 59, Spinal stenosis, lumbar region without neurogenic claudication Radiculopathy, lumbar region Pain in left hip Segmental and somatic dysfunction of lumbar region ? Chiropractic Manipulative Tx Spinal 3-4 Regions [id number]; 11/02/2024 13:23:00 CDT, Spinal stenosis, lumbar region without neurogenic claudication Radiculopathy, lumbar region Pain in left hip Segmental and somatic dysfunction of lumbar region Segmental and somatic dysfunction of thoracic region Seg... D iagnosis: 3 . P ain in left hip Comment: Ordered: Manual Therapy Tqs 1/> Regions Each 15 Minutes [id number]; 11/02/2024 13:23:00 CDT, 59, Spinal stenosis, lumbar region without neurogenic claudication Radiculopathy, lumbar region Pain in left hip Segmental and somatic dysfunction of lumbar region ? Chiropractic Manipulative Tx Spinal 3-4 Regions [id number]; 11/02/2024 13:23:00 CDT, Spinal stenosis, lumbar region without neurogenic claudication Radiculopathy, lumbar region Pain in left hip Segmental and somatic dysfunction of lumbar region Segmental and somatic dysfunction of thoracic region Seg... D iagnosis: 4 . S egmental and somatic dysfunction of lumbar region Comment: Ordered: Manual Therapy Tqs 1/> Regions Each 15 Minutes [id number]; 11/02/2024 13:23:00 CDT, 59, Spinal stenosis, lumbar region without neurogenic claudication Radiculopathy, lumbar region Pain in left hip Segmental and somatic dysfunction of lumbar region ? Chiropractic Manipulative Tx Spinal 3-4 Regions [id number]; 11/02/2024 13:23:00 CDT, Spinal stenosis, lumbar region without neurogenic claudication Radiculopathy, lumbar region Pain in left hip Segmental and somatic dysfunction of lumbar region Segmental and somatic dysfunction of thoracic region Seg... D iagnosis: 5 . S egmental and somatic dysfunction of thoracic region Comment: Ordered: Chiropractic Manipulative Tx Spinal 3-4 Regions [id number]; 11/02/2024 13:23:00 CDT, Spinal stenosis, lumbar region without neurogenic claudication Radiculopathy, lumbar region Pain in left hip Segmental and somatic dysfunction of lumbar region Segmental and somatic dysfunction of thoracic region Seg... D iagnosis: 6 . S egmental and somatic dysfunction of cervical region Comment: Ordered: Chiropractic Manipulative Tx Spinal 3-4 Regions [id number]; 11/02/2024 13:23:00 CDT, Spinal stenosis, lumbar region [...] DC, RMSK Chiropractic Physician [address] Oper[address] [facility] Main Line DSN/Comm: [phone] / [phone] 11/02/24 13:22:10 Extracted from:Title: [facility] HL Author: LORRAINE NAQVI PA Date: [...] agreement. LORRAINE NAQVI E, 1st Lt, [place] [address] Extracted from:Title: FTR - back pain Author: BINU LIN DC Date: 10/26/24 D iagnosis: 1 . R adiculopathy, lumbar region Comment: Ordered: Manual Therapy Tqs 1/> Regions Each 15 Minutes [id number]; 10/26/2024 15:27:00 CDT, 59, Radiculopathy, lumbar region Spinal stenosis, lumbar region without neurogenic claudication Pain in left hip Segmental and somatic dysfunction of lumbar region ? Chiropractic Manipulative Tx Spinal 3-4 Regions [id number]; 10/26/2024 15:27:00 CDT, Radiculopathy, lumbar region Spinal stenosis, lumbar region without neurogenic claudication Pain in left hip Segmental and somatic dysfunction of lumbar region Segmental and somatic dysfunction of thoracic region Seg... D iagnosis: 2 . S ryne stenosis, lumbar region without neurogenic claudication Comment: Ordered: Manual Therapy Tqs 1/> Regions Each 15 Minutes 59907; 10/26/2024 15:27:00 CDT, 59, Radiculopathy, lumbar region Spinal stenosis, lumbar region without neurogenic claudication Pain in left hip Segmental and somatic dysfunction of lumbar region ? Chiropractic Manipulative Tx Spinal 3-4 Regions [id number]; 10/26/2024 15:27:00 CDT, Radiculopathy, lumbar region Spinal stenosis, lumbar region without neurogenic claudication Pain in left hip Segmental and somatic dysfunction of lumbar region Segmental and somatic dysfunction of thoracic region Seg... D iagnosis: 3 . P ain in left hip Comment: Ordered: Manual Therapy Tqs 1/> Regions Each 15 Minutes [id number]; 10/26/2024 15:27:00 CDT, 59, Radiculopathy, lumbar region Spinal stenosis, lumbar region without neurogenic claudication Pain in left hip Segmental and somatic dysfunction of lumbar region ? Chiropractic Manipulative Tx Spinal 3-4 Regions [id number]; 10/26/2024 15:27:00 CDT, Radiculopathy, lumbar region Spinal stenosis, lumbar region without neurogenic claudication Pain in left hip Segmental and somatic dysfunction of lumbar region Segmental and somatic dysfunction of thoracic region Seg... D iagnosis: 4 . S egmental and somatic dysfunction of lumbar region Comment: Ordered: Manual Therapy Tqs 1/> Regions Each 15 Minutes [id number]; 10/26/2024 15:27:00 CDT, 59, Radiculopathy, lumbar region Spinal stenosis, lumbar region without neurogenic claudication Pain in left hip Segmental and somatic dysfunction of lumbar region ? Chiropractic Manipulative Tx Spinal 3-4 Regions 41699; 10/26/2024 15:27:00 CDT, Radiculopathy, lumbar region Spinal stenosis, lumbar region without neurogenic claudication Pain in left hip Segmental and somatic dysfunction of lumbar region Segmental and somatic dysfunction of thoracic region Seg... D iagnosis: 5 . S egmental and somatic dysfunction of thoracic region Comment: Ordered: Chiropractic Manipulative Tx Spinal 3-4 Regions [id number]; 10/26/2024 15:27:00 CDT, Radiculopathy, lumbar region Spinal stenosis, lumbar region without neurogenic claudication Pain in left hip Segmental and somatic dysfunction of lumbar region Segmental and somatic dysfunction of thoracic region Seg... D iagnosis: 6 . S egmental and somatic dysfunction of cervical region Comment: Ordered: Chiropractic Manipulative Tx Spinal 3-4 Regions [id number]; 10/26/2024 15:27:00 CDT, Radiculopathy, lumbar region Spinal [...] Physician [address] Readiness [facility]Comm: [phone] / [phone] 10/26/24 15:25:29 Extracted from:Title: [facility] Therapist OP Follow Up Note Author: TANA LIN, PhD, Psychology Date: 10/17/24 48 y/o , , male, [place] assigned to [employer] and working as [place] [employer] [place] [facility] [place] consistent with depression including depressed [...] p sonali has received trauma-directed treatment in [id number] and reportedly symptoms are currently more manageable [...] Therapy Tqs 1/> Regions Each 15 Minutes 56697; 10/09/2024 13:28:00 CDT, 59, Radiculopathy, lumbar region Spinal stenosis, lumbar region without neurogenic claudication Segmental and somatic dysfunction of sacral region Segmental and somatic dysfunction of lumbar region D iagnosis: 2 . S ryne stenosis, lumbar region without neurogenic claudication Comment: Ordered: Manual Therapy Tqs 1/> Regions Each 15 Minutes 03243; 10/09/2024 13:28:00 CDT, 59, Radiculopathy, lumbar region Spinal stenosis, lumbar region without neurogenic claudication Segmental and somatic dysfunction of sacral region Segmental and somatic dysfunction of lumbar region ? Chiropractic Manipulative Tx Spinal 3-4 Regions 46650; 10/09/2024 13:28:00 CDT, Spinal stenosis, lumbar region without neurogenic claudication Segmental and somatic dysfunction of sacral region Segmental and somatic dysfunction of thoracic region Segmental and somatic dysfunction of lumbar region D iagnosis: 3 . P ain in left hip Comment: Ordered: Chiropractic Manipulative Therapy, Extraspinal [id number]; 10/09/2024 13:28:00 CDT, Pain in left hip D iagnosis: 4 . S egmental and somatic dysfunction of lumbar region Comment: Ordered: Manual Therapy Tqs 1/> Regions Each 15 Minutes [id number]; 10/09/2024 13:28:00 CDT, 59, Radiculopathy, lumbar region Spinal stenosis, lumbar region without neurogenic claudication Segmental and somatic dysfunction of sacral region Segmental and somatic dysfunction of lumbar region ? Chiropractic Manipulative Tx Spinal 3-4 Regions 69461; 10/09/2024 13:28:00 CDT, Spinal stenosis, lumbar region without neurogenic claudication Segmental and somatic dysfunction of sacral region Segmental and somatic dysfunction of thoracic region Segmental and somatic dysfunction of lumbar region D iagnosis: 5 . S egmental and somatic dysfunction of thoracic region Comment: Ordered: Chiropractic Manipulative Tx Spinal 3-4 Regions [id number]; 10/09/2024 13:28:00 CDT, Spinal stenosis, lumbar region without neurogenic claudication Segmental and somatic dysfunction of sacral region Segmental and somatic dysfunction of thoracic region Segmental and somatic dysfunction of lumbar region D iagnosis: 6 . S egmental and somatic dysfunction of sacral region Comment: Ordered: Manual Therapy Tqs 1/> Regions Each 15 Minutes [id number]; 10/09/2024 13:28:00 CDT, 59, Radiculopathy, lumbar region Spinal stenosis, lumbar region without neurogenic claudication Segmental and somatic dysfunction of sacral region Segmental and somatic dysfunction of lumbar region ? Chiropractic Manipulative Tx Spinal 3-4 Regions [id number]; 10/09/2024 13:28:00 CDT, Spinal stenosis, lumbar region [...] Physician 375 [address] Medical Readiness [facility] Main Line DSN/Comm: [phone] / [phone] 10/09/24 13:00:52 Extracted from:Title: [facility] Therapist OP Follow Up Note Author: TANA LIN, PhD, Psychology Date: 10/04/24 48 y/o , , male, [place] assigned to [employer] and working as [employer] self[place] [facility] [place] symptoms consistent with depression including depressed [...] p t has received trauma-directed treatment in [id number] and reportedly symptoms are currently more manageable [...] Therapy Tqs 1/> Regions Each 15 Minutes 23285; 09/25/2024 13:52:00 CDT, 59, Radiculopathy, lumbar region Spinal stenosis, lumbar region without neurogenic claudication Segmental and somatic dysfunction of sacral region Segmental and somatic dysfunction of lumbar region ? Chiropractic Manipulative Tx Spinal 3-4 Regions 56880; 09/25/2024 13:52:00 CDT, Radiculopathy, lumbar region Spinal stenosis, lumbar region without neurogenic claudication Segmental and somatic dysfunction of sacral region Segmental and somatic dysfunction of lumbar region Segmental and somatic dy... D iagnosis: 2 . S ryne stenosis, lumbar region without neurogenic claudication Comment: Ordered: Manual Therapy Tqs 1/> Regions Each 15 Minutes [id number]; 09/25/2024 13:52:00 CDT, 59, Radiculopathy, lumbar region Spinal stenosis, lumbar region without neurogenic claudication Segmental and somatic dysfunction of sacral region Segmental and somatic dysfunction of lumbar region ? Chiropractic Manipulative Tx Spinal 3-4 Regions 42562; 09/25/2024 13:52:00 CDT, Radiculopathy, lumbar region Spinal stenosis, lumbar region without neurogenic claudication Segmental and somatic dysfunction of sacral region Segmental and somatic dysfunction of lumbar region Segmental and somatic dy... D iagnosis: 3 . S egmental and somatic dysfunction of sacral region Comment: Ordered: Manual Therapy Tqs 1/> Regions Each 15 Minutes 02602; 09/25/2024 13:52:00 CDT, 59, Radiculopathy, lumbar region Spinal stenosis, lumbar region without neurogenic claudication Segmental and somatic dysfunction of sacral region Segmental and somatic dysfunction of lumbar region ? Chiropractic Manipulative Tx Spinal 3-4 Regions 61147; 09/25/2024 13:52:00 CDT, Radiculopathy, lumbar region Spinal stenosis, lumbar region without neurogenic claudication Segmental and somatic dysfunction of sacral region Segmental and somatic dysfunction of lumbar region Segmental and somatic dy... D iagnosis: 4 . S egmental and somatic dysfunction of lumbar region Comment: Ordered: Manual Therapy Tqs 1/> Regions Each 15 Minutes [id number]; 09/25/2024 13:52:00 CDT, 59, Radiculopathy, lumbar region Spinal stenosis, lumbar region without neurogenic claudication Segmental and somatic dysfunction of sacral region Segmental and somatic dysfunction of lumbar region ? Chiropractic Manipulative Tx Spinal 3-4 Regions [id number]; 09/25/2024 13:52:00 CDT, Radiculopathy, lumbar region Spinal stenosis, lumbar region without neurogenic claudication Segmental and somatic dysfunction of sacral region Segmental and somatic dysfunction of lumbar region Segmental and somatic dy... D iagnosis: 5 . S egmental and somatic dysfunction of thoracic region Comment: Ordered: Chiropractic Manipulative Tx Spinal 3-4 Regions 36092; 09/25/2024 13:52:00 CDT, Radiculopathy, lumbar region Spinal stenosis, lumbar region without neurogenic claudication Segmental and somatic dysfunction of sacral region Segmental and somatic dysfunction of lumbar region Segmental and somatic dy... D iagnosis: 6 . S egmental and somatic dysfunction of cervical region Comment: Ordered: Chiropractic Manipulative Tx Spinal 3-4 Regions 78335; 09/25/2024 13:52:00 CDT, Radiculopathy, lumbar region Spinal stenosis, lumbar region without neurogenic claudication Segmental and somatic dysfunction of sacral region Segmental and somatic dysfunction of lumbar region Segmental and somatic dy... End of Orders Chiropractic Treatment Chiropractic Diversified Adjustments S upine to C/S P sfaia T/S, S jose posture to [place], SI [...] Physician 375 Operational Medical Readiness [facility] D[facility]/Comm: [phone] / [phone] 09/25/24 13:52:13 Extracted from:Title: FTR - Low back pain Author: BINU LIN DC Date: 09/12/24 D iagnosis: 1 . S ryne stenosis, lumbar region without neurogenic claudication Comment: Ordered: Manual Therapy Tqs 1/> Regions Each 15 Minutes 47999; 09/12/2024 13:37:00 CDT, 59, Radiculopathy, lumbar region Spinal stenosis, lumbar region without neurogenic claudication Segmental and somatic dysfunction of sacral region Segmental and somatic dysfunction of lumbar region ? Chiropractic Manipulative Tx Spinal 3-4 Regions 49723; 09/12/2024 13:37:00 CDT, Radiculopathy, lumbar region Spinal stenosis, lumbar region without neurogenic claudication Segmental and somatic dysfunction of sacral region Segmental and somatic dysfunction of lumbar region Segmental and somatic dy... D iagnosis: 2 . S egmental and somatic dysfunction of sacral region Comment: Ordered: Manual Therapy Tqs 1/> Regions Each 15 Minutes 45060; 09/12/2024 13:37:00 CDT, 59, Radiculopathy, lumbar region Spinal stenosis, lumbar region without neurogenic claudication Segmental and somatic dysfunction of sacral region Segmental and somatic dysfunction of lumbar region ? Chiropractic Manipulative Tx Spinal 3-4 Regions 26344; 09/12/2024 13:37:00 CDT, Radiculopathy, lumbar region Spinal stenosis, lumbar region without neurogenic claudication Segmental and somatic dysfunction of sacral region Segmental and somatic dysfunction of lumbar region Segmental and somatic dy... D iagnosis: 3 . S egmental and somatic dysfunction of lumbar region Comment: Ordered: Manual Therapy Tqs 1/> Regions Each 15 Minutes [id number]; 09/12/2024 13:37:00 CDT, 59, Radiculopathy, lumbar region Spinal stenosis, lumbar region without neurogenic claudication Segmental and somatic dysfunction of sacral region Segmental and somatic dysfunction of lumbar region ? Chiropractic Manipulative Tx Spinal 3-4 Regions [id number]; 09/12/2024 13:37:00 CDT, Radiculopathy, lumbar region Spinal stenosis, lumbar region without neurogenic claudication Segmental and somatic dysfunction of sacral region Segmental and somatic dysfunction of lumbar region Segmental and somatic dy... D iagnosis: 4 . S egmental and somatic dysfunction of thoracic region Comment: Ordered: Chiropractic Manipulative Tx Spinal 3-4 Regions [id number]; 09/12/2024 13:37:00 CDT, Radiculopathy, lumbar region Spinal stenosis, lumbar region without neurogenic claudication Segmental and somatic dysfunction of sacral region Segmental and somatic dysfunction of lumbar region Segmental and somatic dy... D iagnosis: 5 . R adiculopathy, lumbar region Comment: Ordered: Manual Therapy Tqs 1/> Regions Each 15 Minutes [id number]; 09/12/2024 13:37:00 CDT, 59, Radiculopathy, lumbar region Spinal stenosis, lumbar region without neurogenic claudication Segmental and somatic dysfunction of sacral region Segmental and somatic dysfunction of lumbar region ? Chiropractic Manipulative Tx Spinal 3-4 Regions [id number]; 09/12/2024 13:37:00 CDT, Radiculopathy, lumbar region Spinal stenosis, lumbar region without neurogenic claudication Segmental and somatic dysfunction of sacral region Segmental and somatic dysfunction of lumbar region Segmental and somatic dy... D iagnosis: S egmental and somatic dysfunction of cervical region Comment: Ordered: Chiropractic Manipulative Tx Spinal 3-4 Regions [id number]; 09/12/2024 13:37:00 CDT, Radiculopathy, lumbar region Spinal [...] Physician 375 Operational Medical Readiness Natalie Mayers [place] [place] [facility] Main Line DSN/Comm: [phone] / [phone] 09/12/24 13:30:18 Extracted from:Title: BEH Therapist OP Initial Visit Note Author: TANA LIN, PhD, Psychology Date: 09/10/24 48 y/o , , male, [place] assigned to [facility] and working as [place] [facility] [place] consistent with depression including depressed [...] p t has received trauma-directed treatment in [id number] and reportedly symptoms are currently more manageable [...] Therapy Tqs 1/> Regions Each 15 Minutes [id number]; 09/05/2024 11:53:00 CDT, 59, Spinal stenosis, lumbar region without neurogenic claudication Radiculopathy, lumbar region Pain in left hip Segmental and somatic dysfunction of sacral region Segmental and somatic dysfunction of lumbar region ? Chiropractic Manipulative Tx Spinal 3-4 Regions [id number]; 09/05/2024 11:53:00 CDT, Spinal stenosis, lumbar region without neurogenic claudication Radiculopathy, lumbar region Pain in left hip Segmental and somatic dysfunction of sacral region Segmental and somatic dysfunction of lumbar region Segme... D iagnosis: 2 . R adiculopathy, lumbar region Comment: Ordered: Manual Therapy Tqs 1/> Regions Each 15 Minutes [id number]; 09/05/2024 11:53:00 CDT, 59, Spinal stenosis, lumbar region without neurogenic claudication Radiculopathy, lumbar region Pain in left hip Segmental and somatic dysfunction of sacral region Segmental and somatic dysfunction of lumbar region ? Chiropractic Manipulative Tx Spinal 3-4 Regions [id number]; 09/05/2024 11:53:00 CDT, Spinal stenosis, lumbar region without neurogenic claudication Radiculopathy, lumbar region Pain in left hip Segmental and somatic dysfunction of sacral region Segmental and somatic dysfunction of lumbar region Segme... D iagnosis: 3 . P ain in left hip Comment: Ordered: Manual Therapy Tqs 1/> Regions Each 15 Minutes [id number]; 09/05/2024 11:53:00 CDT, 59, Spinal stenosis, lumbar region without neurogenic claudication Radiculopathy, lumbar region Pain in left hip Segmental and somatic dysfunction of sacral region Segmental and somatic dysfunction of lumbar region ? Chiropractic Manipulative Tx Spinal 3-4 Regions [id number]; 09/05/2024 11:53:00 CDT, Spinal stenosis, lumbar region without neurogenic claudication Radiculopathy, lumbar region Pain in left hip Segmental and somatic dysfunction of sacral region Segmental and somatic dysfunction of lumbar region Segme... D iagnosis: 4 . S egmental and somatic dysfunction of sacral region Comment: Ordered: Manual Therapy Tqs 1/> Regions Each 15 Minutes [id number]; 09/05/2024 11:53:00 CDT, 59, Spinal stenosis, lumbar region without neurogenic claudication Radiculopathy, lumbar region Pain in left hip Segmental and somatic dysfunction of sacral region Segmental and somatic dysfunction of lumbar region ? Chiropractic Manipulative Tx Spinal 3-4 Regions [id number]; 09/05/2024 11:53:00 CDT, Spinal stenosis, lumbar region without neurogenic claudication Radiculopathy, lumbar region Pain in left hip Segmental and somatic dysfunction of sacral region Segmental and somatic dysfunction of lumbar region Segme... D iagnosis: 5 . S egmental and somatic dysfunction of lumbar region Comment: Ordered: Manual Therapy Tqs 1/> Regions Each 15 Minutes [id number]; 09/05/2024 11:53:00 CDT, 59, Spinal stenosis, lumbar region without neurogenic claudication Radiculopathy, lumbar region Pain in left hip Segmental and somatic dysfunction of sacral region Segmental and somatic dysfunction of lumbar region ? Chiropractic Manipulative Tx Spinal 3-4 Regions [id number]; 09/05/2024 11:53:00 CDT, Spinal stenosis, lumbar region without neurogenic claudication Radiculopathy, lumbar region Pain in left hip Segmental and somatic dysfunction of sacral region Segmental and somatic dysfunction of lumbar region Segme... D iagnosis: 6 . S egmental and somatic dysfunction of thoracic region Comment: Ordered: Chiropractic Manipulative Tx Spinal 3-4 Regions [id number]; 09/05/2024 11:53:00 CDT, Spinal stenosis, lumbar region without neurogenic claudication Radiculopathy, lumbar region Pain in left hip Segmental and somatic dysfunction of sacral region Segmental and somatic dysfunction of lumbar region Segme... D iagnosis: 7 . S egmental and somatic dysfunction of cervical region Comment: Ordered: Chiropractic Manipulative Tx Spinal 3-4 Regions [id number]; 09/05/2024 11:53:00 CDT, Spinal stenosis, lumbar region [...] Physician 375 Operational Medical Readiness Natalie Mayers [facility] Main Line DSN/Comm: [phone] / [phone] 09/05/24 11:10:24 Extracted from:Title: Optometry- acute Author: [...] Fitness Assessment. LUH CARBAJAL, Lt Col, OD Chiller Operator MINDI Brown Extracted from:Title: FTR - Low back pain Author: BINU LIN DC Date: 08/23/24 D iagnosis: 1 . R adiculopathy, lumbar region Comment: Ordered: Manual Therapy Tqs 1/> Regions Each 15 Minutes [id number]; 08/23/2024 13:50:00 CDT, 59, Spinal stenosis, lumbar region without neurogenic claudication Radiculopathy, lumbar region Pain in left hip Segmental and somatic dysfunction of lumbar region Segmental and somatic dysfunction of thoracic region ... ? Chiropractic Manipulative Tx Spinal 3-4 Regions [id number]; 08/23/2024 13:50:00 CDT, Spinal stenosis, lumbar region without neurogenic claudication Radiculopathy, lumbar region Pain in left hip Segmental and somatic dysfunction of lumbar region Segmental and somatic dysfunction of thoracic region Seg... D iagnosis: 2 . S ryne stenosis, lumbar region without neurogenic claudication Comment: Ordered: Manual Therapy Tqs 1/> Regions Each 15 Minutes [id number]; 08/23/2024 13:50:00 CDT, 59, Spinal stenosis, lumbar region without neurogenic claudication Radiculopathy, lumbar region Pain in left hip Segmental and somatic dysfunction of lumbar region Segmental and somatic dysfunction of thoracic region ... ? Chiropractic Manipulative Tx Spinal 3-4 Regions [id number]; 08/23/2024 13:50:00 CDT, Spinal stenosis, lumbar region without neurogenic claudication Radiculopathy, lumbar region Pain in left hip Segmental and somatic dysfunction of lumbar region Segmental and somatic dysfunction of thoracic region Seg... D iagnosis: 3 . P ain in left hip Comment: Ordered: Manual Therapy Tqs 1/> Regions Each 15 Minutes [id number]; 08/23/2024 13:50:00 CDT, 59, Spinal stenosis, lumbar region without neurogenic claudication Radiculopathy, lumbar region Pain in left hip Segmental and somatic dysfunction of lumbar region Segmental and somatic dysfunction of thoracic region ... ? Chiropractic Manipulative Tx Spinal 3-4 Regions [id number]; 08/23/2024 13:50:00 CDT, Spinal stenosis, lumbar region without neurogenic claudication Radiculopathy, lumbar region Pain in left hip Segmental and somatic dysfunction of lumbar region Segmental and somatic dysfunction of thoracic region Seg... D iagnosis: 4 . S egmental and somatic dysfunction of lumbar region Comment: Ordered: Manual Therapy Tqs 1/> Regions Each 15 Minutes [id number]; 08/23/2024 13:50:00 CDT, 59, Spinal stenosis, lumbar region without neurogenic claudication Radiculopathy, lumbar region Pain in left hip Segmental and somatic dysfunction of lumbar region Segmental and somatic dysfunction of thoracic region ... ? Chiropractic Manipulative Tx Spinal 3-4 Regions [id number]; 08/23/2024 13:50:00 CDT, Spinal stenosis, lumbar region without neurogenic claudication Radiculopathy, lumbar region Pain in left hip Segmental and somatic dysfunction of lumbar region Segmental and somatic dysfunction of thoracic region Seg... D iagnosis: 5 . S egmental and somatic dysfunction of thoracic region Comment: Ordered: Manual Therapy Tqs 1/> Regions Each 15 Minutes [id number]; 08/23/2024 13:50:00 CDT, 59, Spinal stenosis, lumbar region without neurogenic claudication Radiculopathy, lumbar region Pain in left hip Segmental and somatic dysfunction of lumbar region Segmental and somatic dysfunction of thoracic region ... ? Chiropractic Manipulative Tx Spinal 3-4 Regions [id number]; 08/23/2024 13:50:00 CDT, Spinal stenosis, lumbar region without neurogenic claudication Radiculopathy, lumbar region Pain in left hip Segmental and somatic dysfunction of lumbar region Segmental and somatic dysfunction of thoracic region Seg... D iagnosis: 6 . S egmental and somatic dysfunction of cervical region Comment: Ordered: Manual Therapy Tqs 1/> Regions Each 15 Minutes [id number]; 08/23/2024 13:50:00 CDT, 59, Spinal stenosis, lumbar region without neurogenic claudication Radiculopathy, lumbar region Pain in left hip Segmental and somatic dysfunction of lumbar region Segmental and somatic dysfunction of thoracic region ... ? Chiropractic Manipulative Tx Spinal 3-4 Regions [id number]; 08/23/2024 13:50:00 CDT, Spinal stenosis, lumbar region [...] Physician 375 Operational Medical Readiness Natalie Mayers [facility], [facility] Main Line DSN/Comm: [phone] / [phone] 08/23/24 13:34:16 Extracted from:Title: [facility] Sinusitis/Eye irritation Author: APRIL SELBY PA, [...] tab(s), 0 total refill(s), Acute, 08/30/2024, Pharmacy: [facility], Respiratory, sinusitis [Not filled] guaiFENesin(guaiFENesin 600 mg oral tablet, extended release), 1 tab(s), Oral, every 12 hr, # 20 tab(s), 0 total refill(s), Acute, 09/06/2024, Pharmacy: [facility] [Last filled 08/23/24] 2. E [...] U April Menjivar, 1st Lt, [place] [address] Please note that this dictation was completed with computer voice recognition software, Vir2us. Quite often unanticipated grammatical, syntax, homophones, and [...] Therapy Tqs 1/> Regions Each 15 Minutes [id number]; 08/15/2024 13:27:00 CDT, 59, Spinal stenosis, lumbar region without neurogenic claudication Radiculopathy, lumbar region Segmental and somatic dysfunction of lumbar region ? Chiropractic Manipulative Tx Spinal 3-4 Regions [id number]; 08/15/2024 13:27:00 CDT, Spinal stenosis, lumbar region without neurogenic claudication Radiculopathy, lumbar region Segmental and somatic dysfunction of lumbar region Segmental and somatic dysfunction of thoracic region Segmental and somatic... D iagnosis: 2 . S ryne stenosis, lumbar region without neurogenic claudication Comment: Ordered: Manual Therapy Tqs 1/> Regions Each 15 Minutes [id number]; 08/15/2024 13:27:00 CDT, 59, Spinal stenosis, lumbar region without neurogenic claudication Radiculopathy, lumbar region Segmental and somatic dysfunction of lumbar region ? Chiropractic Manipulative Tx Spinal 3-4 Regions [id number]; 08/15/2024 13:27:00 CDT, Spinal stenosis, lumbar region without neurogenic claudication Radiculopathy, lumbar region Segmental and somatic dysfunction of lumbar region Segmental and somatic dysfunction of thoracic region Segmental and somatic... D iagnosis: 3 . S egmental and somatic dysfunction of lumbar region Comment: Ordered: Manual Therapy Tqs 1/> Regions Each 15 Minutes [id number]; 08/15/2024 13:27:00 CDT, 59, Spinal stenosis, lumbar region without neurogenic claudication Radiculopathy, lumbar region Segmental and somatic dysfunction of lumbar region ? Chiropractic Manipulative Tx Spinal 3-4 Regions [id number]; 08/15/2024 13:27:00 CDT, Spinal stenosis, lumbar region without neurogenic claudication Radiculopathy, lumbar region Segmental and somatic dysfunction of lumbar region Segmental and somatic dysfunction of thoracic region Segmental and somatic... D iagnosis: 4 . S egmental and somatic dysfunction of cervical region Comment: Ordered: Chiropractic Manipulative Tx Spinal 3-4 Regions [id number]; 08/15/2024 13:27:00 CDT, Spinal stenosis, lumbar region without neurogenic claudication Radiculopathy, lumbar region Segmental and somatic dysfunction of lumbar region Segmental and somatic dysfunction of thoracic region Segmental and somatic... D iagnosis: 5 . S egmental and somatic dysfunction of thoracic region Comment: Ordered: Chiropractic Manipulative Tx Spinal 3-4 Regions [id number]; 08/15/2024 13:27:00 CDT, Spinal stenosis, lumbar region [...] [facility]K Chiropractic Physician 375 Operational Medical Readiness [facility] Main Line DSN/Comm: [phone] / [phone] 08/15/24 13:24:40 Extracted from:Title: FTR - Low back pain Author: BINU LIN DC Date: 08/08/24 D iagnosis: 1 . R adiculopathy, lumbar region Comment: Ordered: Chiropractic Manipulative Tx Spinal 3-4 Regions [id number]; 08/08/2024 13:37:00 CDT, Radiculopathy, lumbar region Spinal stenosis, lumbar region without neurogenic claudication Pain in left hip Segmental and somatic dysfunction of lumbar region Segmental and somatic dysfunction of thoracic region Seg... D iagnosis: 2 . S ryne stenosis, lumbar region without neurogenic claudication Comment: Ordered: Manual Therapy Tqs 1/> Regions Each 15 Minutes 20589; 08/08/2024 13:37:00 CDT, 59, Spinal stenosis, lumbar region without neurogenic claudication Pain in left hip Segmental and somatic dysfunction of lumbar region ? Chiropractic Manipulative Tx Spinal 3-4 Regions [id number]; 08/08/2024 13:37:00 CDT, Radiculopathy, lumbar region Spinal stenosis, lumbar region without neurogenic claudication Pain in left hip Segmental and somatic dysfunction of lumbar region Segmental and somatic dysfunction of thoracic region Seg... D iagnosis: 3 . P ain in left hip Comment: Ordered: Manual Therapy Tqs 1/> Regions Each 15 Minutes [id number]; 08/08/2024 13:37:00 CDT, 59, Spinal stenosis, lumbar region without neurogenic claudication Pain in left hip Segmental and somatic dysfunction of lumbar region ? Chiropractic Manipulative Tx Spinal 3-4 Regions 61589; 08/08/2024 13:37:00 CDT, Radiculopathy, lumbar region Spinal stenosis, lumbar region without neurogenic claudication Pain in left hip Segmental and somatic dysfunction of lumbar region Segmental and somatic dysfunction of thoracic region Seg... D iagnosis: 4 . S egmental and somatic dysfunction of sacral region Comment: Ordered: Chiropractic Manipulative Tx Spinal 3-4 Regions [id number]; 08/08/2024 13:37:00 CDT, Radiculopathy, lumbar region Spinal stenosis, lumbar region without neurogenic claudication Pain in left hip Segmental and somatic dysfunction of lumbar region Segmental and somatic dysfunction of thoracic region Seg... D iagnosis: 5 . S egmental and somatic dysfunction of lumbar region Comment: Ordered: Manual Therapy Tqs 1/> Regions Each 15 Minutes [id number]; 08/08/2024 13:37:00 CDT, 59, Spinal stenosis, lumbar region without neurogenic claudication Pain in left hip Segmental and somatic dysfunction of lumbar region ? Chiropractic Manipulative Tx Spinal 3-4 Regions 03570; 08/08/2024 13:37:00 CDT, Radiculopathy, lumbar region Spinal stenosis, lumbar region without neurogenic claudication Pain in left hip Segmental and somatic dysfunction of lumbar region Segmental and somatic dysfunction of thoracic region Seg... D iagnosis: 6 . S egmental and somatic dysfunction of thoracic region Comment: Ordered: Chiropractic Manipulative Tx Spinal 3-4 Regions 35514; 08/08/2024 13:37:00 CDT, Radiculopathy, lumbar region Spinal [...] Physician 375 Operational Medical Readiness Natalie OLIVAREZ, [facility] Main Line DSN/Comm: [phone] / [phone] 08/08/24 13:13:15 Extracted from:Title: Referral for IDES [...] could explain the radicular pain). IAW AR [id number], Chapter 3-20h at a minimum, this SM [...] p rocess. 2. 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 Delmy nguyen performed multiple hospital visits including of his s who was brutally murdered. 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 ( 1 unit is 3 months long 40 hrs a week). 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 I n Feb 2023 he gained ADOS orders again and is currently serving on them. After conducting a head-to-toe physical examination and review of his medical records (JLV and LOGAN), I am concerned that he needs better documentation with regards to the followin) Bartlett delmy as been diagnosed with PTSD with [...] right shoulder (previously rated as DC 5203) Bartlett tore shoulder in LOD. 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 F or pain management he receives Botox injections every 2 months. 8) 20% rating for lumbar disc disease Bartlett has had many laboratory animal care veterinarian apts as well as Spinal Epidural injections [...] Tim had colitis in [address] [facility]. Initially thought to be a normal stomach bug, it went undiagnosed. A ccompanied with fevers, Bartlett was placed on quarters for last 1.5 weeks of training for that summer. Ky aguero attempted to go home but was too ill to continue flight in [facility] airport. Delmy nguyen was transported VIA ambulance to local hospital where he had CT scan and diagnosed with colitis. Delmy nguyen had 104.5 fever and the infection? j umped ship and attacked his heart 2xs. E KG confirmed 2 heart attacks. Delmy nguyen was transferred to cardiac floor then ultimately the ICU where they gave a dozen IV AB. ?Bartlett recovered but was never the same. Ky Tim feels that this reoccurred several times but went misdiagnosed several times since then. A lso, 2023 he was diagnosed again with colitis and enteritis. 12) Neck pain Ky Tim has chronic neck pain and has seen chiropractic care. R ecently, Bartlett has developed resistance and intolerance to adjustments. [...] syndrome 5. C rohn disease Extracted from:Title: [facility]- Neck and anal pain Author: ANDREW PAVON MD Date: 07/31/24 1. A [facility] - [employer] profile provided - GI [...] any other concerns. Patient can also access [email or web address] at [email or web address] to leave message with PCM Team. A total of 20 minutes was spent on this visit reviewing previous records, counseling the patient on the listed diagnoses, reviewing/ordering tests, adjusting medications, and/or documenting the findings in this note. //SIGNED// Capt Andrew Pavon DO Manufactured Buildings Supervisor Physician, PGY-2 [facility], HCOS/SGGF [facility] Talib KEYS This note was dictated using [employer] dictation software. While it was proofread for errors, there may still be grammatical and dictation errors. Extracted from:Title: FTR - Low back pain Author: BINU LIN DC Date: 07/27/24 D iagnosis: 1 . R adiculopathy, lumbar region Comment: Ordered: Manual Therapy Tqs 1/> Regions Each 15 Minutes [id number]; 07/27/2024 09:32:00 CDT, 59, Radiculopathy, lumbar region Spinal stenosis, lumbar region without neurogenic claudication Segmental and somatic dysfunction of lumbar region ? Chiropractic Manipulative Tx Spinal 3-4 Regions [id number]; 07/27/2024 09:32:00 CDT, Radiculopathy, lumbar region Spinal stenosis, lumbar region without neurogenic claudication Segmental and somatic dysfunction of lumbar region Segmental and somatic dysfunction of thoracic region Segmental and somatic... D iagnosis: 2 . S ryne stenosis, lumbar region without neurogenic claudication Comment: Ordered: Manual Therapy Tqs 1/> Regions Each 15 Minutes [id number]; 07/27/2024 09:32:00 CDT, 59, Radiculopathy, lumbar region Spinal stenosis, lumbar region without neurogenic claudication Segmental and somatic dysfunction of lumbar region ? Chiropractic Manipulative Tx Spinal 3-4 Regions 46538; 07/27/2024 09:32:00 CDT, Radiculopathy, lumbar region Spinal stenosis, lumbar region without neurogenic claudication Segmental and somatic dysfunction of lumbar region Segmental and somatic dysfunction of thoracic region Segmental and somatic... D iagnosis: 3 . S egmental and somatic dysfunction of lumbar region Comment: Ordered: Manual Therapy Tqs 1/> Regions Each 15 Minutes [id number]; 07/27/2024 09:32:00 CDT, 59, Radiculopathy, lumbar region Spinal stenosis, lumbar region without neurogenic claudication Segmental and somatic dysfunction of lumbar region ? Chiropractic Manipulative Tx Spinal 3-4 Regions 45690; 07/27/2024 09:32:00 CDT, Radiculopathy, lumbar region Spinal stenosis, lumbar region without neurogenic claudication Segmental and somatic dysfunction of lumbar region Segmental and somatic dysfunction of thoracic region Segmental and somatic... D iagnosis: 4 . S egmental and somatic dysfunction of thoracic region Comment: Ordered: Chiropractic Manipulative Tx Spinal 3-4 Regions 05690; 07/27/2024 09:32:00 CDT, Radiculopathy, lumbar region Spinal stenosis, lumbar region without neurogenic claudication Segmental and somatic dysfunction of lumbar region Segmental and somatic dysfunction of thoracic region Segmental and somatic... D iagnosis: 5 . S egmental and somatic dysfunction of cervical region Comment: Ordered: Chiropractic Manipulative Tx Spinal 3-4 Regions [id number]; 07/27/2024 09:32:00 CDT, Radiculopathy, lumbar region Spinal [...] Physician 375 Operational Medical Readiness Natalie KEYS, [facility] Main Line DSN/Comm: [phone] / [phone] 07/27/24 09:39:34 Extracted from:Title: [facility] MARVIN/OME Author: LORRAINE NAQVI PA Date: [...] and agreement. LORRAINE NAQVI, 1st Lt, PAErwinC [facility] [place] [address] Extracted from:Title: [facility] LBP Author: ERIK VERA DO Date: [...] Duration: 5 days, First Dose: 06/01/2024 13:00:00 COMPRESSOR STATION ENGINEER, Stop Date: 06/06/2024 12:59:00 COMPRESSOR STATION ENGINEER, 06/01/2024 12:02:00 COMPRESSOR STATION ENGINEER Orders: ketorolac(Toradol 15 mg/mL injectable solution), 15 mg, IntraMuscular, every 6 hr, # 1 mL, 0 total refill(s), Acute, 06/02/2024, Pharmacy: [facility] [Not filled] Erik Vera DO, , [facility], Family Physician [facility]/Owner Professional Engineer [facility] in [place], [place] [address] [place] [address] Extracted from:Title: [facility] colitis work-up Author: ERIK VERA DO [...] IMR/ASIMS Status: [employer] Erik Vera DO, , [facility], Family Physician [facility]/Owner Professional Engineer [facility] in [place], [place] [address] [place] [address] Extracted from:Title: [facility] Sick call - F/u Feb 16 ER visit for colitis Author: FADUMO CASTRO MD Date: 02/21/24 1. E nterocolitis PCM Perez 48 y.o. 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 . . . . . 20/15 OS: pl-0.06w833. . . . . . 2 0/15 Near Add: + 1.75 20/20 Computer Rx OD: +0.50-0.04r707 OS: +1.00-0.11q926 - Discussed 2 pair requirement (DOD). - [...] completed for patient to take to unit ([facility], etc) to update into their MEDPROS system. RTC first avail for DFE only (ok to dilate at screening), otherwise 1 year Ordered: cycloSPORINE ophthalmic(Restasis 0.05% ophthalmic emulsion), 1 drop(s), Eye-Both, every 12 hr, # 60 EA, 11 total refill(s), Maintenance, 1 drop(s) Eye-Both every 12 hr, Pharmacy: [facility] [Not filled] Diagnosis: 1 . K eratoconjunctivitis sicca Comment: Ordered: Restasis 0.05% ophthalmic emulsion; 1 drop(s), Eye-Both, every 12 hr, # 60 EA, 11 total refill(s), Maintenance, 1 drop(s) Eye-Both every 12 hr, Pharmacy: [facility] [Not filled] ? [facility] Carey New Pt 1/> Vst [id number]; 02/07/2024 14:58:00 CDT ? Fitting Spectacles Xcpt Aphakia Monofocal [id number]; 02/07/2024 14:58:00 CDT ? Determination Refractive State [id number]; 02/07/2024 14:58:00 CDT D iagnosis: 2 . P resbyopia Comment: Ordered: Restasis 0.05% ophthalmic emulsion; 1 drop(s), Eye-Both, every 12 hr, # 60 EA, 11 total refill(s), Maintenance, 1 drop(s) Eye-Both every 12 hr, Pharmacy: [facility] [Not filled] ? [facility] /> Vst [id number]; 02/07/2024 14:58:00 CDT ? Fitting Spectacles Xcpt Aphakia Monofocal 61017; 02/07/2024 14:58:00 CDT ? Determination Refractive State [id number]; 02/07/2024 14:58:00 CDT End of Orders Extracted [...] O rdered: Fundus Photography w/Interpretation + Report [id number]; 08/19/2022 08:44:00 EDT ? Ophthal[facility] Medical [place] [id number]; 08/19/2022 08:44:00 EDT End of Orders Future Appointments Appointment Date: 11/28/2024 01:00:00 PM Scheduled Provider: BINU LIN DC [facility] Appointment Date: 12/04/2024 08:00:00 AM Scheduled Provider: TANA LIN, PhD, Psychology Location: [id number] Appointment Type: BH FTR Appointment Date: 12/06/2024 12:40:00 PM Scheduled Provider: APRIL SELBY PA, Family Medicine Location: [id number] Appointment Type: REDNS FTR Appointment Date: 12/07/2024 03:00:00 PM Scheduled Provider: BINU LIN DC [facility]: [facility] Future Scheduled TestsRadiologyXR Spine Cervical 4 or 5 Views 07/31/24XR Spine Thoracic 4+ Views 07/31/24 11/23/2024 [id number] and Plan Extracted from:Title : FTR - back pain Author: BINU LIN DC Date: 11/02/24 D iagnosis: 1 . S ryne stenosis, lumbar region without neurogenic claudication Comment: Ordered: Manual Therapy Tqs 1/> Regions Each 15 Minutes [id number]; 11/02/2024 13:23:00 CDT, 59, Spinal stenosis, lumbar region without neurogenic claudication Radiculopathy, lumbar region Pain in left hip Segmental and somatic dysfunction of lumbar region ? Chiropractic Manipulative Tx Spinal 3-4 Regions [id number]; 11/02/2024 13:23:00 CDT, Spinal stenosis, lumbar region without neurogenic claudication Radiculopathy, lumbar region Pain in left hip Segmental and somatic dysfunction of lumbar region Segmental and somatic dysfunction of thoracic region Seg... D iagnosis: 2 . R adiculopathy, lumbar region Comment: Ordered: Manual Therapy Tqs 1/> Regions Each 15 Minutes [id number]; 11/02/2024 13:23:00 CDT, 59, Spinal stenosis, lumbar region without neurogenic claudication Radiculopathy, lumbar region Pain in left hip Segmental and somatic dysfunction of lumbar region ? Chiropractic Manipulative Tx Spinal 3-4 Regions [id number]; 11/02/2024 13:23:00 CDT, Spinal stenosis, lumbar region without neurogenic claudication Radiculopathy, lumbar region Pain in left hip Segmental and somatic dysfunction of lumbar region Segmental and somatic dysfunction of thoracic region Seg... D iagnosis: 3 . P ain in left hip Comment: Ordered: Manual Therapy Tqs 1/> Regions Each 15 Minutes [id number]; 11/02/2024 13:23:00 CDT, 59, Spinal stenosis, lumbar region without neurogenic claudication Radiculopathy, lumbar region Pain in left hip Segmental and somatic dysfunction of lumbar region ? Chiropractic Manipulative Tx Spinal 3-4 Regions [id number]; 11/02/2024 13:23:00 CDT, Spinal stenosis, lumbar region without neurogenic claudication Radiculopathy, lumbar region Pain in left hip Segmental and somatic dysfunction of lumbar region Segmental and somatic dysfunction of thoracic region Seg... D iagnosis: 4 . S egmental and somatic dysfunction of lumbar region Comment: Ordered: Manual Therapy Tqs 1/> Regions Each 15 Minutes [id number]; 11/02/2024 13:23:00 CDT, 59, Spinal stenosis, lumbar region without neurogenic claudication Radiculopathy, lumbar region Pain in left hip Segmental and somatic dysfunction of lumbar region ? Chiropractic Manipulative Tx Spinal 3-4 Regions [id number]; 11/02/2024 13:23:00 CDT, Spinal stenosis, lumbar region without neurogenic claudication Radiculopathy, lumbar region Pain in left hip Segmental and somatic dysfunction of lumbar region Segmental and somatic dysfunction of thoracic region Seg... D iagnosis: 5 . S egmental and somatic dysfunction of thoracic region Comment: Ordered: Chiropractic Manipulative Tx Spinal 3-4 Regions [id number]; 11/02/2024 13:23:00 CDT, Spinal stenosis, lumbar region without neurogenic claudication Radiculopathy, lumbar region Pain in left hip Segmental and somatic dysfunction of lumbar region Segmental and somatic dysfunction of thoracic region Seg... D iagnosis: 6 . S egmental and somatic dysfunction of cervical region Comment: Ordered: Chiropractic Manipulative Tx Spinal 3-4 Regions [id number]; 11/02/2024 13:23:00 CDT, Spinal stenosis, lumbar region [...] Dr. Binu Lin DC, [facility] Chiropractic Physician [facility] [place] [place] [facility] Main Line DSN/Comm: [phone] / [phone] 11/02/24 13:22:10 Extracted from:Title: [facility] HL Author: LORRAINE NAQVI PA Date: [...] agreement. LORRAINE NAQVI E, [address], [place] [address] Extracted from:Title: FTR - back pain Author: BINU LIN DC Date: 10/26/24 D iagnosis: 1 . R adiculopathy, lumbar region Comment: Ordered: Manual Therapy Tqs 1/> Regions Each 15 Minutes [id number]; 10/26/2024 15:27:00 CDT, 59, Radiculopathy, lumbar region Spinal stenosis, lumbar region without neurogenic claudication Pain in left hip Segmental and somatic dysfunction of lumbar region ? Chiropractic Manipulative Tx Spinal 3-4 Regions [id number]; 10/26/2024 15:27:00 CDT, Radiculopathy, lumbar region Spinal stenosis, lumbar region without neurogenic claudication Pain in left hip Segmental and somatic dysfunction of lumbar region Segmental and somatic dysfunction of thoracic region Seg... D iagnosis: 2 . S ryne stenosis, lumbar region without neurogenic claudication Comment: Ordered: Manual Therapy Tqs 1/> Regions Each 15 Minutes [id number]; 10/26/2024 15:27:00 CDT, 59, Radiculopathy, lumbar region Spinal stenosis, lumbar region without neurogenic claudication Pain in left hip Segmental and somatic dysfunction of lumbar region ? Chiropractic Manipulative Tx Spinal 3-4 Regions [id number]; 10/26/2024 15:27:00 CDT, Radiculopathy, lumbar region Spinal stenosis, lumbar region without neurogenic claudication Pain in left hip Segmental and somatic dysfunction of lumbar region Segmental and somatic dysfunction of thoracic region Seg... D iagnosis: 3 . P ain in left hip Comment: Ordered: Manual Therapy Tqs 1/> Regions Each 15 Minutes [id number]; 10/26/2024 15:27:00 CDT, 59, Radiculopathy, lumbar region Spinal stenosis, lumbar region without neurogenic claudication Pain in left hip Segmental and somatic dysfunction of lumbar region ? Chiropractic Manipulative Tx Spinal 3-4 Regions [id number]; 10/26/2024 15:27:00 CDT, Radiculopathy, lumbar region Spinal stenosis, lumbar region without neurogenic claudication Pain in left hip Segmental and somatic dysfunction of lumbar region Segmental and somatic dysfunction of thoracic region Seg... D iagnosis: 4 . S egmental and somatic dysfunction of lumbar region Comment: Ordered: Manual Therapy Tqs 1/> Regions Each 15 Minutes [id number]; 10/26/2024 15:27:00 CDT, 59, Radiculopathy, lumbar region Spinal stenosis, lumbar region without neurogenic claudication Pain in left hip Segmental and somatic dysfunction of lumbar region ? Chiropractic Manipulative Tx Spinal 3-4 Regions [id number]; 10/26/2024 15:27:00 CDT, Radiculopathy, lumbar region Spinal stenosis, lumbar region without neurogenic claudication Pain in left hip Segmental and somatic dysfunction of lumbar region Segmental and somatic dysfunction of thoracic region Seg... D iagnosis: 5 . S egmental and somatic dysfunction of thoracic region Comment: Ordered: Chiropractic Manipulative Tx Spinal 3-4 Regions [id number]; 10/26/2024 15:27:00 CDT, Radiculopathy, lumbar region Spinal stenosis, lumbar region without neurogenic claudication Pain in left hip Segmental and somatic dysfunction of lumbar region Segmental and somatic dysfunction of thoracic region Seg... D iagnosis: 6 . S egmental and somatic dysfunction of cervical region Comment: Ordered: Chiropractic Manipulative Tx Spinal 3-4 Regions [id number]; 10/26/2024 15:27:00 CDT, Radiculopathy, lumbar region Spinal [...] Physician [facility] D[facility]/Comm: [phone] / [phone] 10/26/24 15:25:29 Extracted from:Title: [facility] Therapist OP Follow Up Note Author: TANA LIN, PhD, Psychology Date: 10/17/24 48 y/o , , male, [place] assigned to [facility] and working as [employer] [place] [facility] [place] consistent with depression including depressed [...] p t has received trauma-directed treatment in 4124-1215 and reportedly symptoms are currently more manageable [...] Therapy Tqs 1/> Regions Each 15 Minutes [id number]; 10/09/2024 13:28:00 CDT, 59, Radiculopathy, lumbar region Spinal stenosis, lumbar region without neurogenic claudication Segmental and somatic dysfunction of sacral region Segmental and somatic dysfunction of lumbar region D iagnosis: 2 . S ryne stenosis, lumbar region without neurogenic claudication Comment: Ordered: Manual Therapy Tqs 1/> Regions Each 15 Minutes [id number]; 10/09/2024 13:28:00 CDT, 59, Radiculopathy, lumbar region Spinal stenosis, lumbar region without neurogenic claudication Segmental and somatic dysfunction of sacral region Segmental and somatic dysfunction of lumbar region ? Chiropractic Manipulative Tx Spinal 3-4 Regions [id number]; 10/09/2024 13:28:00 CDT, Spinal stenosis, lumbar region without neurogenic claudication Segmental and somatic dysfunction of sacral region Segmental and somatic dysfunction of thoracic region Segmental and somatic dysfunction of lumbar region D iagnosis: 3 . P ain in left hip Comment: Ordered: Chiropractic Manipulative Therapy, Extraspinal [id number]; 10/09/2024 13:28:00 CDT, Pain in left hip D iagnosis: 4 . S egmental and somatic dysfunction of lumbar region Comment: Ordered: Manual Therapy Tqs 1/> Regions Each 15 Minutes [id number]; 10/09/2024 13:28:00 CDT, 59, Radiculopathy, lumbar region Spinal stenosis, lumbar region without neurogenic claudication Segmental and somatic dysfunction of sacral region Segmental and somatic dysfunction of lumbar region ? Chiropractic Manipulative Tx Spinal 3-4 Regions [id number]; 10/09/2024 13:28:00 CDT, Spinal stenosis, lumbar region without neurogenic claudication Segmental and somatic dysfunction of sacral region Segmental and somatic dysfunction of thoracic region Segmental and somatic dysfunction of lumbar region D iagnosis: 5 . S egmental and somatic dysfunction of thoracic region Comment: Ordered: Chiropractic Manipulative Tx Spinal 3-4 Regions [id number]; 10/09/2024 13:28:00 CDT, Spinal stenosis, lumbar region without neurogenic claudication Segmental and somatic dysfunction of sacral region Segmental and somatic dysfunction of thoracic region Segmental and somatic dysfunction of lumbar region D iagnosis: 6 . S egmental and somatic dysfunction of sacral region Comment: Ordered: Manual Therapy Tqs 1/> Regions Each 15 Minutes 12036; 10/09/2024 13:28:00 CDT, 59, Radiculopathy, lumbar region Spinal stenosis, lumbar region without neurogenic claudication Segmental and somatic dysfunction of sacral region Segmental and somatic dysfunction of lumbar region ? Chiropractic Manipulative Tx Spinal 3-4 Regions [id number]; 10/09/2024 13:28:00 CDT, Spinal stenosis, lumbar region [...] [facility] Chiropractic Physician [address] [facility] Talib [facility] Main Line DSN/Comm: [phone] / [phone] 10/09/24 13:00:52 Extracted from:Title: BEH Therapist OP Follow Up Note Author: TANA LIN, PhD, Psychology Date: 10/04/24 48 y/o , , male, [place] assigned to [facility] and working as [employer] self[place] [facility] [place] consistent with depression including depressed [...] p t has received trauma-directed treatment in [id number] and reportedly symptoms are currently more manageable [...] Therapy Tqs 1/> Regions Each 15 Minutes [id number]; 09/25/2024 13:52:00 CDT, 59, Radiculopathy, lumbar region Spinal stenosis, lumbar region without neurogenic claudication Segmental and somatic dysfunction of sacral region Segmental and somatic dysfunction of lumbar region ? Chiropractic Manipulative Tx Spinal 3-4 Regions [id number]; 09/25/2024 13:52:00 CDT, Radiculopathy, lumbar region Spinal stenosis, lumbar region without neurogenic claudication Segmental and somatic dysfunction of sacral region Segmental and somatic dysfunction of lumbar region Segmental and somatic dy... D iagnosis: 2 . S ryne stenosis, lumbar region without neurogenic claudication Comment: Ordered: Manual Therapy Tqs 1/> Regions Each 15 Minutes [id number]; 09/25/2024 13:52:00 CDT, 59, Radiculopathy, lumbar region Spinal stenosis, lumbar region without neurogenic claudication Segmental and somatic dysfunction of sacral region Segmental and somatic dysfunction of lumbar region ? Chiropractic Manipulative Tx Spinal 3-4 Regions 21576; 09/25/2024 13:52:00 CDT, Radiculopathy, lumbar region Spinal stenosis, lumbar region without neurogenic claudication Segmental and somatic dysfunction of sacral region Segmental and somatic dysfunction of lumbar region Segmental and somatic dy... D iagnosis: 3 . S egmental and somatic dysfunction of sacral region Comment: Ordered: Manual Therapy Tqs 1/> Regions Each 15 Minutes [id number]; 09/25/2024 13:52:00 CDT, 59, Radiculopathy, lumbar region Spinal stenosis, lumbar region without neurogenic claudication Segmental and somatic dysfunction of sacral region Segmental and somatic dysfunction of lumbar region ? Chiropractic Manipulative Tx Spinal 3-4 Regions 34432; 09/25/2024 13:52:00 CDT, Radiculopathy, lumbar region Spinal stenosis, lumbar region without neurogenic claudication Segmental and somatic dysfunction of sacral region Segmental and somatic dysfunction of lumbar region Segmental and somatic dy... D iagnosis: 4 . S egmental and somatic dysfunction of lumbar region Comment: Ordered: Manual Therapy Tqs 1/> Regions Each 15 Minutes [id number]; 09/25/2024 13:52:00 CDT, 59, Radiculopathy, lumbar region Spinal stenosis, lumbar region without neurogenic claudication Segmental and somatic dysfunction of sacral region Segmental and somatic dysfunction of lumbar region ? Chiropractic Manipulative Tx Spinal 3-4 Regions 34294; 09/25/2024 13:52:00 CDT, Radiculopathy, lumbar region Spinal stenosis, lumbar region without neurogenic claudication Segmental and somatic dysfunction of sacral region Segmental and somatic dysfunction of lumbar region Segmental and somatic dy... D iagnosis: 5 . S egmental and somatic dysfunction of thoracic region Comment: Ordered: Chiropractic Manipulative Tx Spinal 3-4 Regions 41594; 09/25/2024 13:52:00 CDT, Radiculopathy, lumbar region Spinal stenosis, lumbar region without neurogenic claudication Segmental and somatic dysfunction of sacral region Segmental and somatic dysfunction of lumbar region Segmental and somatic dy... D iagnosis: 6 . S egmental and somatic dysfunction of cervical region Comment: Ordered: Chiropractic Manipulative Tx Spinal 3-4 Regions 13875; 09/25/2024 13:52:00 CDT, Radiculopathy, lumbar region Spinal [...] [facility] Chiropractic Physician [address] [employer] [facility] [employer] Talib [facility] Main Line DSN/Comm: [phone] / [phone] 09/25/24 13:52:13 Extracted from:Title: FTR - Low back pain Author: BINU LIN DC Date: 09/12/24 D iagnosis: 1 . S ryne stenosis, lumbar region without neurogenic claudication Comment: Ordered: Manual Therapy Tqs 1/> Regions Each 15 Minutes [id number]; 09/12/2024 13:37:00 CDT, 59, Radiculopathy, lumbar region Spinal stenosis, lumbar region without neurogenic claudication Segmental and somatic dysfunction of sacral region Segmental and somatic dysfunction of lumbar region ? Chiropractic Manipulative Tx Spinal 3-4 Regions [id number]; 09/12/2024 13:37:00 CDT, Radiculopathy, lumbar region Spinal stenosis, lumbar region without neurogenic claudication Segmental and somatic dysfunction of sacral region Segmental and somatic dysfunction of lumbar region Segmental and somatic dy... D iagnosis: 2 . S egmental and somatic dysfunction of sacral region Comment: Ordered: Manual Therapy Tqs 1/> Regions Each 15 Minutes [id number]; 09/12/2024 13:37:00 CDT, 59, Radiculopathy, lumbar region Spinal stenosis, lumbar region without neurogenic claudication Segmental and somatic dysfunction of sacral region Segmental and somatic dysfunction of lumbar region ? Chiropractic Manipulative Tx Spinal 3-4 Regions 62403; 09/12/2024 13:37:00 CDT, Radiculopathy, lumbar region Spinal stenosis, lumbar region without neurogenic claudication Segmental and somatic dysfunction of sacral region Segmental and somatic dysfunction of lumbar region Segmental and somatic dy... D iagnosis: 3 . S egmental and somatic dysfunction of lumbar region Comment: Ordered: Manual Therapy Tqs 1/> Regions Each 15 Minutes [id number]; 09/12/2024 13:37:00 CDT, 59, Radiculopathy, lumbar region Spinal stenosis, lumbar region without neurogenic claudication Segmental and somatic dysfunction of sacral region Segmental and somatic dysfunction of lumbar region ? Chiropractic Manipulative Tx Spinal 3-4 Regions [id number]; 09/12/2024 13:37:00 CDT, Radiculopathy, lumbar region Spinal stenosis, lumbar region without neurogenic claudication Segmental and somatic dysfunction of sacral region Segmental and somatic dysfunction of lumbar region Segmental and somatic dy... D iagnosis: 4 . S egmental and somatic dysfunction of thoracic region Comment: Ordered: Chiropractic Manipulative Tx Spinal 3-4 Regions 35591; 09/12/2024 13:37:00 CDT, Radiculopathy, lumbar region Spinal stenosis, lumbar region without neurogenic claudication Segmental and somatic dysfunction of sacral region Segmental and somatic dysfunction of lumbar region Segmental and somatic dy... D iagnosis: 5 . R adiculopathy, lumbar region Comment: Ordered: Manual Therapy Tqs 1/> Regions Each 15 Minutes 48559; 09/12/2024 13:37:00 CDT, 59, Radiculopathy, lumbar region Spinal stenosis, lumbar region without neurogenic claudication Segmental and somatic dysfunction of sacral region Segmental and somatic dysfunction of lumbar region ? Chiropractic Manipulative Tx Spinal 3-4 Regions 34156; 09/12/2024 13:37:00 CDT, Radiculopathy, lumbar region Spinal stenosis, lumbar region without neurogenic claudication Segmental and somatic dysfunction of sacral region Segmental and somatic dysfunction of lumbar region Segmental and somatic dy... D iagnosis: S egmental and somatic dysfunction of cervical region Comment: Ordered: Chiropractic Manipulative Tx Spinal 3-4 Regions 36963; 09/12/2024 13:37:00 CDT, Radiculopathy, lumbar region Spinal [...] Physician [facility] [facility] [employer]/Comm: [phone] / [phone] 09/12/24 13:30:18 Extracted from:Title: BEH Therapist OP Initial Visit Note Author: TANA LIN, PhD, Psychology Date: 09/10/24 48 y/o , , male, [place] assigned to [facility] and working as [employer] [place] [facility] [place] consistent with depression including depressed [...] p t has received trauma-directed treatment in 1832-2312 and reportedly symptoms are currently more manageable [...] Therapy Tqs 1/> Regions Each 15 Minutes [id number]; 09/05/2024 11:53:00 CDT, 59, Spinal stenosis, lumbar region without neurogenic claudication Radiculopathy, lumbar region Pain in left hip Segmental and somatic dysfunction of sacral region Segmental and somatic dysfunction of lumbar region ? Chiropractic Manipulative Tx Spinal 3-4 Regions [id number]; 09/05/2024 11:53:00 CDT, Spinal stenosis, lumbar region without neurogenic claudication Radiculopathy, lumbar region Pain in left hip Segmental and somatic dysfunction of sacral region Segmental and somatic dysfunction of lumbar region Segme... D iagnosis: 2 . R adiculopathy, lumbar region Comment: Ordered: Manual Therapy Tqs 1/> Regions Each 15 Minutes [id number]; 09/05/2024 11:53:00 CDT, 59, Spinal stenosis, lumbar region without neurogenic claudication Radiculopathy, lumbar region Pain in left hip Segmental and somatic dysfunction of sacral region Segmental and somatic dysfunction of lumbar region ? Chiropractic Manipulative Tx Spinal 3-4 Regions [id number]; 09/05/2024 11:53:00 CDT, Spinal stenosis, lumbar region without neurogenic claudication Radiculopathy, lumbar region Pain in left hip Segmental and somatic dysfunction of sacral region Segmental and somatic dysfunction of lumbar region Segme... D iagnosis: 3 . P ain in left hip Comment: Ordered: Manual Therapy Tqs 1/> Regions Each 15 Minutes [id number]; 09/05/2024 11:53:00 CDT, 59, Spinal stenosis, lumbar region without neurogenic claudication Radiculopathy, lumbar region Pain in left hip Segmental and somatic dysfunction of sacral region Segmental and somatic dysfunction of lumbar region ? Chiropractic Manipulative Tx Spinal 3-4 Regions 13884; 09/05/2024 11:53:00 CDT, Spinal stenosis, lumbar region without neurogenic claudication Radiculopathy, lumbar region Pain in left hip Segmental and somatic dysfunction of sacral region Segmental and somatic dysfunction of lumbar region Segme... D iagnosis: 4 . S egmental and somatic dysfunction of sacral region Comment: Ordered: Manual Therapy Tqs 1/> Regions Each 15 Minutes 23473; 09/05/2024 11:53:00 CDT, 59, Spinal stenosis, lumbar region without neurogenic claudication Radiculopathy, lumbar region Pain in left hip Segmental and somatic dysfunction of sacral region Segmental and somatic dysfunction of lumbar region ? Chiropractic Manipulative Tx Spinal 3-4 Regions [id number]; 09/05/2024 11:53:00 CDT, Spinal stenosis, lumbar region without neurogenic claudication Radiculopathy, lumbar region Pain in left hip Segmental and somatic dysfunction of sacral region Segmental and somatic dysfunction of lumbar region Segme... D iagnosis: 5 . S egmental and somatic dysfunction of lumbar region Comment: Ordered: Manual Therapy Tqs 1/> Regions Each 15 Minutes [id number]; 09/05/2024 11:53:00 CDT, 59, Spinal stenosis, lumbar region without neurogenic claudication Radiculopathy, lumbar region Pain in left hip Segmental and somatic dysfunction of sacral region Segmental and somatic dysfunction of lumbar region ? Chiropractic Manipulative Tx Spinal 3-4 Regions [id number]; 09/05/2024 11:53:00 CDT, Spinal stenosis, lumbar region without neurogenic claudication Radiculopathy, lumbar region Pain in left hip Segmental and somatic dysfunction of sacral region Segmental and somatic dysfunction of lumbar region Segme... D iagnosis: 6 . S egmental and somatic dysfunction of thoracic region Comment: Ordered: Chiropractic Manipulative Tx Spinal 3-4 Regions [id number]; 09/05/2024 11:53:00 CDT, Spinal stenosis, lumbar region without neurogenic claudication Radiculopathy, lumbar region Pain in left hip Segmental and somatic dysfunction of sacral region Segmental and somatic dysfunction of lumbar region Segme... D iagnosis: 7 . S egmental and somatic dysfunction of cervical region Comment: Ordered: Chiropractic Manipulative Tx Spinal 3-4 Regions [id number]; 09/05/2024 11:53:00 CDT, Spinal stenosis, lumbar region [...] Physician 375 Operational Medical Readiness Natalie Mayers [facility] Main Line DSN/Comm: [phone] / [phone] 09/05/24 11:10:24 Extracted from:Title: Optometry- acute Author: [...] Fitness Assessment. LUH CARBAJAL, Lt Col, OD Chiller Operator Talib [place], [place] Extracted from:Title: FTR - Low back pain Author: BINU LIN DC Date: 08/23/24 D iagnosis: 1 . R adiculopathy, lumbar region Comment: Ordered: Manual Therapy Tqs 1/> Regions Each 15 Minutes [id number]; 08/23/2024 13:50:00 CDT, 59, Spinal stenosis, lumbar region without neurogenic claudication Radiculopathy, lumbar region Pain in left hip Segmental and somatic dysfunction of lumbar region Segmental and somatic dysfunction of thoracic region ... ? Chiropractic Manipulative Tx Spinal 3-4 Regions [id number]; 08/23/2024 13:50:00 CDT, Spinal stenosis, lumbar region without neurogenic claudication Radiculopathy, lumbar region Pain in left hip Segmental and somatic dysfunction of lumbar region Segmental and somatic dysfunction of thoracic region Seg... D iagnosis: 2 . S ryne stenosis, lumbar region without neurogenic claudication Comment: Ordered: Manual Therapy Tqs 1/> Regions Each 15 Minutes [id number]; 08/23/2024 13:50:00 CDT, 59, Spinal stenosis, lumbar region without neurogenic claudication Radiculopathy, lumbar region Pain in left hip Segmental and somatic dysfunction of lumbar region Segmental and somatic dysfunction of thoracic region ... ? Chiropractic Manipulative Tx Spinal 3-4 Regions [id number]; 08/23/2024 13:50:00 CDT, Spinal stenosis, lumbar region without neurogenic claudication Radiculopathy, lumbar region Pain in left hip Segmental and somatic dysfunction of lumbar region Segmental and somatic dysfunction of thoracic region Seg... D iagnosis: 3 . P ain in left hip Comment: Ordered: Manual Therapy Tqs 1/> Regions Each 15 Minutes [id number]; 08/23/2024 13:50:00 CDT, 59, Spinal stenosis, lumbar region without neurogenic claudication Radiculopathy, lumbar region Pain in left hip Segmental and somatic dysfunction of lumbar region Segmental and somatic dysfunction of thoracic region ... ? Chiropractic Manipulative Tx Spinal 3-4 Regions [id number]; 08/23/2024 13:50:00 CDT, Spinal stenosis, lumbar region without neurogenic claudication Radiculopathy, lumbar region Pain in left hip Segmental and somatic dysfunction of lumbar region Segmental and somatic dysfunction of thoracic region Seg... D iagnosis: 4 . S egmental and somatic dysfunction of lumbar region Comment: Ordered: Manual Therapy Tqs 1/> Regions Each 15 Minutes [id number]; 08/23/2024 13:50:00 CDT, 59, Spinal stenosis, lumbar region without neurogenic claudication Radiculopathy, lumbar region Pain in left hip Segmental and somatic dysfunction of lumbar region Segmental and somatic dysfunction of thoracic region ... ? Chiropractic Manipulative Tx Spinal 3-4 Regions [id number]; 08/23/2024 13:50:00 CDT, Spinal stenosis, lumbar region without neurogenic claudication Radiculopathy, lumbar region Pain in left hip Segmental and somatic dysfunction of lumbar region Segmental and somatic dysfunction of thoracic region Seg... D iagnosis: 5 . S egmental and somatic dysfunction of thoracic region Comment: Ordered: Manual Therapy Tqs 1/> Regions Each 15 Minutes [id number]; 08/23/2024 13:50:00 CDT, 59, Spinal stenosis, lumbar region without neurogenic claudication Radiculopathy, lumbar region Pain in left hip Segmental and somatic dysfunction of lumbar region Segmental and somatic dysfunction of thoracic region ... ? Chiropractic Manipulative Tx Spinal 3-4 Regions [id number]; 08/23/2024 13:50:00 CDT, Spinal stenosis, lumbar region without neurogenic claudication Radiculopathy, lumbar region Pain in left hip Segmental and somatic dysfunction of lumbar region Segmental and somatic dysfunction of thoracic region Seg... D iagnosis: 6 . S egmental and somatic dysfunction of cervical region Comment: Ordered: Manual Therapy Tqs 1/> Regions Each 15 Minutes [id number]; 08/23/2024 13:50:00 CDT, 59, Spinal stenosis, lumbar region without neurogenic claudication Radiculopathy, lumbar region Pain in left hip Segmental and somatic dysfunction of lumbar region Segmental and somatic dysfunction of thoracic region ... ? Chiropractic Manipulative Tx Spinal 3-4 Regions [id number]; 08/23/2024 13:50:00 CDT, Spinal stenosis, lumbar region [...] [facility] Chiropractic Physician [facility] Read[facility] Main Line DSN/Comm: [phone] / [phone] 08/23/24 13:34:16 Extracted from:Title: [facility] Sinusitis/Eye irritation Author: APRIL SELBY PA, [...] tab(s), 0 total refill(s), Acute, 09/06/2024, Pharmacy: [facility] [Last filled 08/23/24] 2. E [...] U April Menjivar, 1st Lt, [place] [address] Please note that this dictation was completed with computer voice recognition software, Vir2us. Quite often unanticipated grammatical, syntax, homophones, and [...] Therapy Tqs 1/> Regions Each 15 Minutes [id number]; 08/15/2024 13:27:00 CDT, 59, Spinal stenosis, lumbar region without neurogenic claudication Radiculopathy, lumbar region Segmental and somatic dysfunction of lumbar region ? Chiropractic Manipulative Tx Spinal 3-4 Regions [id number]; 08/15/2024 13:27:00 CDT, Spinal stenosis, lumbar region without neurogenic claudication Radiculopathy, lumbar region Segmental and somatic dysfunction of lumbar region Segmental and somatic dysfunction of thoracic region Segmental and somatic... D iagnosis: 2 . S ryne stenosis, lumbar region without neurogenic claudication Comment: Ordered: Manual Therapy Tqs 1/> Regions Each 15 Minutes [id number]; 08/15/2024 13:27:00 CDT, 59, Spinal stenosis, lumbar region without neurogenic claudication Radiculopathy, lumbar region Segmental and somatic dysfunction of lumbar region ? Chiropractic Manipulative Tx Spinal 3-4 Regions [id number]; 08/15/2024 13:27:00 CDT, Spinal stenosis, lumbar region without neurogenic claudication Radiculopathy, lumbar region Segmental and somatic dysfunction of lumbar region Segmental and somatic dysfunction of thoracic region Segmental and somatic... D iagnosis: 3 . S egmental and somatic dysfunction of lumbar region Comment: Ordered: Manual Therapy Tqs 1/> Regions Each 15 Minutes [id number]; 08/15/2024 13:27:00 CDT, 59, Spinal stenosis, lumbar region without neurogenic claudication Radiculopathy, lumbar region Segmental and somatic dysfunction of lumbar region ? Chiropractic Manipulative Tx Spinal 3-4 Regions [id number]; 08/15/2024 13:27:00 CDT, Spinal stenosis, lumbar region without neurogenic claudication Radiculopathy, lumbar region Segmental and somatic dysfunction of lumbar region Segmental and somatic dysfunction of thoracic region Segmental and somatic... D iagnosis: 4 . S egmental and somatic dysfunction of cervical region Comment: Ordered: Chiropractic Manipulative Tx Spinal 3-4 Regions [id number]; 08/15/2024 13:27:00 CDT, Spinal stenosis, lumbar region without neurogenic claudication Radiculopathy, lumbar region Segmental and somatic dysfunction of lumbar region Segmental and somatic dysfunction of thoracic region Segmental and somatic... D iagnosis: 5 . S egmental and somatic dysfunction of thoracic region Comment: Ordered: Chiropractic Manipulative Tx Spinal 3-4 Regions [id number]; 08/15/2024 13:27:00 CDT, Spinal stenosis, lumbar region [...] [facility] Chiropractic Physician [facility] Read[facility] Main Line DSN/Comm: [phone] / [phone] 08/15/24 13:24:40 Extracted from:Title: FTR - Low back pain Author: BINU LIN DC Date: 08/08/24 D iagnosis: 1 . R adiculopathy, lumbar region Comment: Ordered: Chiropractic Manipulative Tx Spinal 3-4 Regions [id number]; 08/08/2024 13:37:00 CDT, Radiculopathy, lumbar region Spinal stenosis, lumbar region without neurogenic claudication Pain in left hip Segmental and somatic dysfunction of lumbar region Segmental and somatic dysfunction of thoracic region Seg... D iagnosis: 2 . S ryne stenosis, lumbar region without neurogenic claudication Comment: Ordered: Manual Therapy Tqs 1/> Regions Each 15 Minutes [id number]; 08/08/2024 13:37:00 CDT, 59, Spinal stenosis, lumbar region without neurogenic claudication Pain in left hip Segmental and somatic dysfunction of lumbar region ? Chiropractic Manipulative Tx Spinal 3-4 Regions [id number]; 08/08/2024 13:37:00 CDT, Radiculopathy, lumbar region Spinal stenosis, lumbar region without neurogenic claudication Pain in left hip Segmental and somatic dysfunction of lumbar region Segmental and somatic dysfunction of thoracic region Seg... D iagnosis: 3 . P ain in left hip Comment: Ordered: Manual Therapy Tqs 1/> Regions Each 15 Minutes [id number]; 08/08/2024 13:37:00 CDT, 59, Spinal stenosis, lumbar region without neurogenic claudication Pain in left hip Segmental and somatic dysfunction of lumbar region ? Chiropractic Manipulative Tx Spinal 3-4 Regions [id number]; 08/08/2024 13:37:00 CDT, Radiculopathy, lumbar region Spinal stenosis, lumbar region without neurogenic claudication Pain in left hip Segmental and somatic dysfunction of lumbar region Segmental and somatic dysfunction of thoracic region Seg... D iagnosis: 4 . S egmental and somatic dysfunction of sacral region Comment: Ordered: Chiropractic Manipulative Tx Spinal 3-4 Regions [id number]; 08/08/2024 13:37:00 CDT, Radiculopathy, lumbar region Spinal stenosis, lumbar region without neurogenic claudication Pain in left hip Segmental and somatic dysfunction of lumbar region Segmental and somatic dysfunction of thoracic region Seg... D iagnosis: 5 . S egmental and somatic dysfunction of lumbar region Comment: Ordered: Manual Therapy Tqs 1/> Regions Each 15 Minutes [id number]; 08/08/2024 13:37:00 CDT, 59, Spinal stenosis, lumbar region without neurogenic claudication Pain in left hip Segmental and somatic dysfunction of lumbar region ? Chiropractic Manipulative Tx Spinal 3-4 Regions [id number]; 08/08/2024 13:37:00 CDT, Radiculopathy, lumbar region Spinal stenosis, lumbar region without neurogenic claudication Pain in left hip Segmental and somatic dysfunction of lumbar region Segmental and somatic dysfunction of thoracic region Seg... D iagnosis: 6 . S egmental and somatic dysfunction of thoracic region Comment: Ordered: Chiropractic Manipulative Tx Spinal 3-4 Regions [id number]; 08/08/2024 13:37:00 CDT, Radiculopathy, lumbar region Spinal [...] Physician 375 Operational Medical Readiness Natalie Mayers [facility] Main Line DSN/Comm: [phone] / [phone] 08/08/24 13:13:15 Extracted from:Title: Referral for IDES [...] IDEs p rocess. 2. 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 Delmy nguyen performed multiple hospital visits including of his SM s who was brutally murdered. 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 ( 1 unit is 3 months long 40 hrs a week). 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 I n Feb 2023 he gained ADOS orders again and is currently serving on them. After conducting a head-to-toe physical examination and review of his medical records ([facility] and [facility]), I am concerned that he needs better documentation with regards to the followin) Bartlett delmy as been diagnosed with PTSD with [...] right shoulder (previously rated as DC 5203) Bartlett tore shoulder in . 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 F or pain management he receives Botox injections every 2 months. 8) 20% rating for lumbar disc disease Bartlett has had many laboratory animal care veterinarian apts as well as Spinal Epidural injections [...] Tim had colitis in [address] [facility]. Initially thought to be a normal stomach bug, it went undiagnosed. A ccompanied with fevers, Bartlett was placed on quarters for last 1.5 weeks of training for that summer. Ky aguero attempted to go home but was too ill to continue flight in [facility] airport. Delmy nguyen was transported VIA ambulance to local hospital where he had CT scan and diagnosed with colitis. Delmy nguyen had 104.5 fever and the infection? j umped ship and attacked his heart 2xs. E KG confirmed 2 heart attacks. Delmy nguyen was transferred to cardiac floor then ultimately the ICU where they gave a dozen IV AB. ?Bartlett recovered but was never the same. Ky Tim feels that this reoccurred several times but went misdiagnosed several times since then. A lso, 2023 he was diagnosed again with colitis and enteritis. 12) Neck pain Ky Tim has chronic neck pain and has seen chiropractic care. R ecently, Bartlett has developed resistance and intolerance to adjustments. [...] any other concerns. Patient can also access [employer] at [email or web address] to leave message with PCM Team. A total of 20 minutes was spent on this visit reviewing previous records, counseling the patient on the listed diagnoses, reviewing/ordering tests, adjusting medications, and/or documenting the findings in this note. //SIGNED// Capt Andrew Pavon DO Manufactured Buildings Supervisor Physician, PGY-2 [employer], HCOS/SGGF [facility] Talib KEYS This note was dictated using [employer] dictation software. While it was proofread for errors, there may still be grammatical and dictation errors. Extracted from:Title: FTR - Low back pain Author: BINU LIN DC Date: 07/27/24 D iagnosis: 1 . R adiculopathy, lumbar region Comment: Ordered: Manual Therapy Tqs 1/> Regions Each 15 Minutes [id number]; 07/27/2024 09:32:00 CDT, 59, Radiculopathy, lumbar region Spinal stenosis, lumbar region without neurogenic claudication Segmental and somatic dysfunction of lumbar region ? Chiropractic Manipulative Tx Spinal 3-4 Regions [id number]; 07/27/2024 09:32:00 CDT, Radiculopathy, lumbar region Spinal stenosis, lumbar region without neurogenic claudication Segmental and somatic dysfunction of lumbar region Segmental and somatic dysfunction of thoracic region Segmental and somatic... D iagnosis: 2 . S ryne stenosis, lumbar region without neurogenic claudication Comment: Ordered: Manual Therapy Tqs 1/> Regions Each 15 Minutes 13900; 07/27/2024 09:32:00 CDT, 59, Radiculopathy, lumbar region Spinal stenosis, lumbar region without neurogenic claudication Segmental and somatic dysfunction of lumbar region ? Chiropractic Manipulative Tx Spinal 3-4 Regions [id number]; 07/27/2024 09:32:00 CDT, Radiculopathy, lumbar region Spinal stenosis, lumbar region without neurogenic claudication Segmental and somatic dysfunction of lumbar region Segmental and somatic dysfunction of thoracic region Segmental and somatic... D iagnosis: 3 . S egmental and somatic dysfunction of lumbar region Comment: Ordered: Manual Therapy Tqs 1/> Regions Each 15 Minutes [id number]; 07/27/2024 09:32:00 CDT, 59, Radiculopathy, lumbar region Spinal stenosis, lumbar region without neurogenic claudication Segmental and somatic dysfunction of lumbar region ? Chiropractic Manipulative Tx Spinal 3-4 Regions [id number]; 07/27/2024 09:32:00 CDT, Radiculopathy, lumbar region Spinal stenosis, lumbar region without neurogenic claudication Segmental and somatic dysfunction of lumbar region Segmental and somatic dysfunction of thoracic region Segmental and somatic... D iagnosis: 4 . S egmental and somatic dysfunction of thoracic region Comment: Ordered: Chiropractic Manipulative Tx Spinal 3-4 Regions [id number]; 07/27/2024 09:32:00 CDT, Radiculopathy, lumbar region Spinal stenosis, lumbar region without neurogenic claudication Segmental and somatic dysfunction of lumbar region Segmental and somatic dysfunction of thoracic region Segmental and somatic... D iagnosis: 5 . S egmental and somatic dysfunction of cervical region Comment: Ordered: Chiropractic Manipulative Tx Spinal 3-4 Regions [id number]; 07/27/2024 09:32:00 CDT, Radiculopathy, lumbar region Spinal [...] CARL, [facility] Chiropractic Physician 375 Operational Medical [place] [place] [facility] Main Line DSN/Comm: [phone] / [phone] 07/27/24 09:39:34 Extracted from:Title: [facility] MARVIN/OME Author: LORRAINE NAQVI PA Date: [...] and agreement. LORRAINE NAQVI, 1st Lt, PA-C [facility] [place] [address] Extracted from:Title: [facility] LBP Author: ERIK VERA, Date: 06/01/24 [...] Duration: 5 days, First Dose: 06/01/2024 13:00:00 COMPRESSOR STATION ENGINEER, Stop Date: 06/06/2024 12:59:00 COMPRESSOR STATION ENGINEER, 06/01/2024 12:02:00 COMPRESSOR STATION ENGINEER Orders: ketorolac(Toradol 15 mg/mL injectable solution), 15 mg, IntraMuscular, every 6 hr, # 1 mL, 0 total refill(s), Acute, 06/02/2024, Pharmacy: [facility] [Not filled] Capt Lynn DO, [employer], Family Physician [facility]/Owner Professional Engineer [facility] Residency Program in [place], [place] [address] [facility] [address] Extracted from:Title: [facility] colitis work-up Author: ERIK VERA DO [...] Reviewed MEB in progress: No IMR/ASIMS Status: [facility] Capt Lynn DO, [employer], Family Physician [facility]/Owner Professional Engineer [facility] Res[facility] in [place], [place] [address] [address] Extracted from:Title: [facility] Sick call - F/u Feb 16 ER visit for colitis Author: FADUMO CASTRO MD Date: 02/21/24 1. E nterocolitis PCM Perez 48 y.o. 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 Per member GI called him back [...] Family Physician, [facility] Talib VALENTINE, [facility] cortez Mckeon DSN/Comm: [phone] / [phone] Extracted from:Title: Routine nondilated exam- MEDPROS Author: [...] per pt ADLs MANIFEST REFRACTION: OD: - 0.50-0.02q781. . . . . . 20/15 OS: pl-0.78l295. . . . . . 2 0/15 Near Add: + 1.75 20/20 Computer Rx OD: +0.50-0.31r487 OS: +1.00-0.54d692 - Discussed 2 pair requirement (DOD). - [...] completed for patient to take to unit ([facility], etc) to update into their MEDPROS system. RTC first avail for DFE only (ok to dilate at screening), otherwise 1 year Ordered: cycloSPORINE ophthalmic(Restasis 0.05% ophthalmic emulsion), 1 drop(s), Eye-Both, every 12 hr, # 60 EA, 11 total refill(s), Maintenance, 1 drop(s) Eye-Both every 12 hr, Pharmacy: [facility] [Not filled] Diagnosis: 1 . K eratoconjunctivitis sicca Comment: Ordered: Restasis 0.05% ophthalmic emulsion; 1 drop(s), Eye-Both, every 12 hr, # 60 EA, 11 total refill(s), Maintenance, 1 drop(s) Eye-Both every 12 hr, Pharmacy: [facility] [Not filled] ? Ophthalmological Medical Xm&Eval Chrery New Pt 1/> Vst [id number]; 02/07/2024 14:58:00 CDT ? Fitting Spectacles Xcpt Aphakia Monofocal [id number]; 02/07/2024 14:58:00 CDT ? Determination Refractive State [id number]; 02/07/2024 14:58:00 CDT D iagnosis: 2 . P resbyopia Comment: Ordered: Restasis 0.05% ophthalmic emulsion; 1 drop(s), Eye-Both, every 12 hr, # 60 EA, 11 total refill(s), Maintenance, 1 drop(s) Eye-Both every 12 hr, Pharmacy: [facility] [Not filled] ? Ophthalmological Medical Xm&Eval Compre New Pt 1/> Vst [id number]; 02/07/2024 14:58:00 CDT ? Fitting Spectacles Xcpt Aphakia Monofocal 73790; 02/07/2024 14:58:00 CDT ? Determination Refractive State [id number]; 02/07/2024 14:58:00 CDT End of Orders Extracted [...] O rdered: Fundus Photography w/Interpretation + Report [id number]; 08/19/2022 08:44:00 EDT ? Ophthalmological Medical [place] [address]; 08/19/2022 08:44:00 EDT End of Orders Future Appointments Appointment Date: 11/28/2024 01:00:00 PM Scheduled Provider: BINU LIN DC Location: [address] [place] [address] Appointment Type: CHIRO FTR Appointment Date: 12/04/2024 08:00:00 AM Scheduled Provider: TANA LIN, PhD, Psychology Location: [id number] Appointment Type: BH FTR Appointment Date: 12/06/2024 12:40:00 PM Scheduled Provider: APRIL SELBY PA, Family Medicine Location: [id number] Appointment Type: ROSARIO FTR Appointment Date: 12/07/2024 03:00:00 PM Scheduled Provider: BINU LIN DC [facility] Future Scheduled TestsRadiologyXR Spine Cervical 4 or 5 Views 07/31/24XR Spine Thoracic 4+ Views 07/31/24 11/23/2024 [id number] and [facility] Extracted from:Title : FTR - back pain Author: BINU LIN DC Date: 11/02/24 D iagnosis: 1 . S ryne stenosis, lumbar region without neurogenic claudication Comment: Ordered: Manual Therapy Tqs 1/> Regions Each 15 Minutes 08600; 11/02/2024 13:23:00 CDT, 59, Spinal stenosis, lumbar region without neurogenic claudication Radiculopathy, lumbar region Pain in left hip Segmental and somatic dysfunction of lumbar region ? Chiropractic Manipulative Tx Spinal 3-4 Regions 29587; 11/02/2024 13:23:00 CDT, Spinal stenosis, lumbar region without neurogenic claudication Radiculopathy, lumbar region Pain in left hip Segmental and somatic dysfunction of lumbar region Segmental and somatic dysfunction of thoracic region Seg... D iagnosis: 2 . R adiculopathy, lumbar region Comment: Ordered: Manual Therapy Tqs 1/> Regions Each 15 Minutes [id number]; 11/02/2024 13:23:00 CDT, 59, Spinal stenosis, lumbar region without neurogenic claudication Radiculopathy, lumbar region Pain in left hip Segmental and somatic dysfunction of lumbar region ? Chiropractic Manipulative Tx Spinal 3-4 Regions [id number]; 11/02/2024 13:23:00 CDT, Spinal stenosis, lumbar region without neurogenic claudication Radiculopathy, lumbar region Pain in left hip Segmental and somatic dysfunction of lumbar region Segmental and somatic dysfunction of thoracic region Seg... D iagnosis: 3 . P ain in left hip Comment: Ordered: Manual Therapy Tqs 1/> Regions Each 15 Minutes [id number]; 11/02/2024 13:23:00 CDT, 59, Spinal stenosis, lumbar region without neurogenic claudication Radiculopathy, lumbar region Pain in left hip Segmental and somatic dysfunction of lumbar region ? Chiropractic Manipulative Tx Spinal 3-4 Regions [id number]; 11/02/2024 13:23:00 CDT, Spinal stenosis, lumbar region without neurogenic claudication Radiculopathy, lumbar region Pain in left hip Segmental and somatic dysfunction of lumbar region Segmental and somatic dysfunction of thoracic region Seg... D iagnosis: 4 . S egmental and somatic dysfunction of lumbar region Comment: Ordered: Manual Therapy Tqs 1/> Regions Each 15 Minutes [id number]; 11/02/2024 13:23:00 CDT, 59, Spinal stenosis, lumbar region without neurogenic claudication Radiculopathy, lumbar region Pain in left hip Segmental and somatic dysfunction of lumbar region ? Chiropractic Manipulative Tx Spinal 3-4 Regions [id number]; 11/02/2024 13:23:00 CDT, Spinal stenosis, lumbar region without neurogenic claudication Radiculopathy, lumbar region Pain in left hip Segmental and somatic dysfunction of lumbar region Segmental and somatic dysfunction of thoracic region Seg... D iagnosis: 5 . S egmental and somatic dysfunction of thoracic region Comment: Ordered: Chiropractic Manipulative Tx Spinal 3-4 Regions [id number]; 11/02/2024 13:23:00 CDT, Spinal stenosis, lumbar region without neurogenic claudication Radiculopathy, lumbar region Pain in left hip Segmental and somatic dysfunction of lumbar region Segmental and somatic dysfunction of thoracic region Seg... D iagnosis: 6 . S egmental and somatic dysfunction of cervical region Comment: Ordered: Chiropractic Manipulative Tx Spinal 3-4 Regions [id number]; 11/02/2024 13:23:00 CDT, Spinal stenosis, lumbar region [...] Physician [address] [employer] Natalie KEYS, [facility] Main Line DSN/Comm: [phone] / [phone] 11/02/24 13:22:10 Extracted from:Title: [facility] Author: LORRAINE NAQVI PA Date: 11/01/24 1. [...] and agreement. LORRAINE NAQVI, 1st Lt, [place] [address] Extracted from:Title: FTR - back pain Author: BINU LIN DC Date: 10/26/24 D iagnosis: 1 . R adiculopathy, lumbar region Comment: Ordered: Manual Therapy Tqs 1/> Regions Each 15 Minutes [id number]; 10/26/2024 15:27:00 CDT, 59, Radiculopathy, lumbar region Spinal stenosis, lumbar region without neurogenic claudication Pain in left hip Segmental and somatic dysfunction of lumbar region ? Chiropractic Manipulative Tx Spinal 3-4 Regions [id number]; 10/26/2024 15:27:00 CDT, Radiculopathy, lumbar region Spinal stenosis, lumbar region without neurogenic claudication Pain in left hip Segmental and somatic dysfunction of lumbar region Segmental and somatic dysfunction of thoracic region Seg... D iagnosis: 2 . S ryne stenosis, lumbar region without neurogenic claudication Comment: Ordered: Manual Therapy Tqs 1/> Regions Each 15 Minutes [id number]; 10/26/2024 15:27:00 CDT, 59, Radiculopathy, lumbar region Spinal stenosis, lumbar region without neurogenic claudication Pain in left hip Segmental and somatic dysfunction of lumbar region ? Chiropractic Manipulative Tx Spinal 3-4 Regions [id number]; 10/26/2024 15:27:00 CDT, Radiculopathy, lumbar region Spinal stenosis, lumbar region without neurogenic claudication Pain in left hip Segmental and somatic dysfunction of lumbar region Segmental and somatic dysfunction of thoracic region Seg... D iagnosis: 3 . P ain in left hip Comment: Ordered: Manual Therapy Tqs 1/> Regions Each 15 Minutes [id number]; 10/26/2024 15:27:00 CDT, 59, Radiculopathy, lumbar region Spinal stenosis, lumbar region without neurogenic claudication Pain in left hip Segmental and somatic dysfunction of lumbar region ? Chiropractic Manipulative Tx Spinal 3-4 Regions [id number]; 10/26/2024 15:27:00 CDT, Radiculopathy, lumbar region Spinal stenosis, lumbar region without neurogenic claudication Pain in left hip Segmental and somatic dysfunction of lumbar region Segmental and somatic dysfunction of thoracic region Seg... D iagnosis: 4 . S egmental and somatic dysfunction of lumbar region Comment: Ordered: Manual Therapy Tqs 1/> Regions Each 15 Minutes [id number]; 10/26/2024 15:27:00 CDT, 59, Radiculopathy, lumbar region Spinal stenosis, lumbar region without neurogenic claudication Pain in left hip Segmental and somatic dysfunction of lumbar region ? Chiropractic Manipulative Tx Spinal 3-4 Regions [id number]; 10/26/2024 15:27:00 CDT, Radiculopathy, lumbar region Spinal stenosis, lumbar region without neurogenic claudication Pain in left hip Segmental and somatic dysfunction of lumbar region Segmental and somatic dysfunction of thoracic region Seg... D iagnosis: 5 . S egmental and somatic dysfunction of thoracic region Comment: Ordered: Chiropractic Manipulative Tx Spinal 3-4 Regions [id number]; 10/26/2024 15:27:00 CDT, Radiculopathy, lumbar region Spinal stenosis, lumbar region without neurogenic claudication Pain in left hip Segmental and somatic dysfunction of lumbar region Segmental and somatic dysfunction of thoracic region Seg... D iagnosis: 6 . S egmental and somatic dysfunction of cervical region Comment: Ordered: Chiropractic Manipulative Tx Spinal 3-4 Regions [id number]; 10/26/2024 15:27:00 CDT, Radiculopathy, lumbar region Spinal [...] Chiropractic Physician [address] [employer] [place] DSN/Comm: [phone] / [phone] 10/26/24 15:25:29 Extracted from:Title: BE[facility] Therapist OP Follow Up Note Author: TANA LIN, PhD, Psychology Date: 10/17/24 48 y/o , , male, [place] assigned to [facility] and working as [employer] [place] [facility] [place] consistent with depression including depressed [...] p t has received trauma-directed treatment in [id number] and reportedly symptoms are currently more manageable [...] Therapy Tqs 1/> Regions Each 15 Minutes [id number]; 10/09/2024 13:28:00 CDT, 59, Radiculopathy, lumbar region Spinal stenosis, lumbar region without neurogenic claudication Segmental and somatic dysfunction of sacral region Segmental and somatic dysfunction of lumbar region D iagnosis: 2 . S ryne stenosis, lumbar region without neurogenic claudication Comment: Ordered: Manual Therapy Tqs 1/> Regions Each 15 Minutes [id number]; 10/09/2024 13:28:00 CDT, 59, Radiculopathy, lumbar region Spinal stenosis, lumbar region without neurogenic claudication Segmental and somatic dysfunction of sacral region Segmental and somatic dysfunction of lumbar region ? Chiropractic Manipulative Tx Spinal 3-4 Regions [id number]; 10/09/2024 13:28:00 CDT, Spinal stenosis, lumbar region without neurogenic claudication Segmental and somatic dysfunction of sacral region Segmental and somatic dysfunction of thoracic region Segmental and somatic dysfunction of lumbar region D iagnosis: 3 . P ain in left hip Comment: Ordered: Chiropractic Manipulative Therapy, Extraspinal [id number]; 10/09/2024 13:28:00 CDT, Pain in left hip D iagnosis: 4 . S egmental and somatic dysfunction of lumbar region Comment: Ordered: Manual Therapy Tqs 1/> Regions Each 15 Minutes [id number]; 10/09/2024 13:28:00 CDT, 59, Radiculopathy, lumbar region Spinal stenosis, lumbar region without neurogenic claudication Segmental and somatic dysfunction of sacral region Segmental and somatic dysfunction of lumbar region ? Chiropractic Manipulative Tx Spinal 3-4 Regions [id number]; 10/09/2024 13:28:00 CDT, Spinal stenosis, lumbar region without neurogenic claudication Segmental and somatic dysfunction of sacral region Segmental and somatic dysfunction of thoracic region Segmental and somatic dysfunction of lumbar region D iagnosis: 5 . S egmental and somatic dysfunction of thoracic region Comment: Ordered: Chiropractic Manipulative Tx Spinal 3-4 Regions [id number]; 10/09/2024 13:28:00 CDT, Spinal stenosis, lumbar region without neurogenic claudication Segmental and somatic dysfunction of sacral region Segmental and somatic dysfunction of thoracic region Segmental and somatic dysfunction of lumbar region D iagnosis: 6 . S egmental and somatic dysfunction of sacral region Comment: Ordered: Manual Therapy Tqs 1/> Regions Each 15 Minutes [id number]; 10/09/2024 13:28:00 CDT, 59, Radiculopathy, lumbar region Spinal stenosis, lumbar region without neurogenic claudication Segmental and somatic dysfunction of sacral region Segmental and somatic dysfunction of lumbar region ? Chiropractic Manipulative Tx Spinal 3-4 Regions [id number]; 10/09/2024 13:28:00 CDT, Spinal stenosis, lumbar region [...] Physician [address] [employer] Natalie KEYS, [facility] DSN/Comm: [phone] / [phone] 10/09/24 13:00:52 Extracted from:Title: BEH Therapist OP Follow Up Note Author: TANA LIN, PhD, Psychology Date: 10/04/24 48 y/o , , male, [place] assigned to [facility] and working as [place] self[place] [facility] [place] consistent with depression including depressed [...] p t has received trauma-directed treatment in [id number] and reportedly symptoms are currently more manageable [...] Therapy Tqs 1/> Regions Each 15 Minutes [id number]; 09/25/2024 13:52:00 CDT, 59, Radiculopathy, lumbar region Spinal stenosis, lumbar region without neurogenic claudication Segmental and somatic dysfunction of sacral region Segmental and somatic dysfunction of lumbar region ? Chiropractic Manipulative Tx Spinal 3-4 Regions [id number]; 09/25/2024 13:52:00 CDT, Radiculopathy, lumbar region Spinal stenosis, lumbar region without neurogenic claudication Segmental and somatic dysfunction of sacral region Segmental and somatic dysfunction of lumbar region Segmental and somatic dy... D iagnosis: 2 . S ryne stenosis, lumbar region without neurogenic claudication Comment: Ordered: Manual Therapy Tqs 1/> Regions Each 15 Minutes [id number]; 09/25/2024 13:52:00 CDT, 59, Radiculopathy, lumbar region Spinal stenosis, lumbar region without neurogenic claudication Segmental and somatic dysfunction of sacral region Segmental and somatic dysfunction of lumbar region ? Chiropractic Manipulative Tx Spinal 3-4 Regions [id number]; 09/25/2024 13:52:00 CDT, Radiculopathy, lumbar region Spinal stenosis, lumbar region without neurogenic claudication Segmental and somatic dysfunction of sacral region Segmental and somatic dysfunction of lumbar region Segmental and somatic dy... D iagnosis: 3 . S egmental and somatic dysfunction of sacral region Comment: Ordered: Manual Therapy Tqs 1/> Regions Each 15 Minutes [id number]; 09/25/2024 13:52:00 CDT, 59, Radiculopathy, lumbar region Spinal stenosis, lumbar region without neurogenic claudication Segmental and somatic dysfunction of sacral region Segmental and somatic dysfunction of lumbar region ? Chiropractic Manipulative Tx Spinal 3-4 Regions [id number]; 09/25/2024 13:52:00 CDT, Radiculopathy, lumbar region Spinal stenosis, lumbar region without neurogenic claudication Segmental and somatic dysfunction of sacral region Segmental and somatic dysfunction of lumbar region Segmental and somatic dy... D iagnosis: 4 . S egmental and somatic dysfunction of lumbar region Comment: Ordered: Manual Therapy Tqs 1/> Regions Each 15 Minutes [id number]; 09/25/2024 13:52:00 CDT, 59, Radiculopathy, lumbar region Spinal stenosis, lumbar region without neurogenic claudication Segmental and somatic dysfunction of sacral region Segmental and somatic dysfunction of lumbar region ? Chiropractic Manipulative Tx Spinal 3-4 Regions [id number]; 09/25/2024 13:52:00 CDT, Radiculopathy, lumbar region Spinal stenosis, lumbar region without neurogenic claudication Segmental and somatic dysfunction of sacral region Segmental and somatic dysfunction of lumbar region Segmental and somatic dy... D iagnosis: 5 . S egmental and somatic dysfunction of thoracic region Comment: Ordered: Chiropractic Manipulative Tx Spinal 3-4 Regions [id number]; 09/25/2024 13:52:00 CDT, Radiculopathy, lumbar region Spinal stenosis, lumbar region without neurogenic claudication Segmental and somatic dysfunction of sacral region Segmental and somatic dysfunction of lumbar region Segmental and somatic dy... D iagnosis: 6 . S egmental and somatic dysfunction of cervical region Comment: Ordered: Chiropractic Manipulative Tx Spinal 3-4 Regions [id number]; 09/25/2024 13:52:00 CDT, Radiculopathy, lumbar region Spinal [...] Physician [address] [employer] Natalie Mayers [facility] Main Line DSN/Comm: [phone] / [phone] 09/25/24 13:52:13 Extracted from:Title: FTR - Low back pain Author: BINU LIN DC Date: 09/12/24 D iagnosis: 1 . S ryne stenosis, lumbar region without neurogenic claudication Comment: Ordered: Manual Therapy Tqs 1/> Regions Each 15 Minutes [id number]; 09/12/2024 13:37:00 CDT, 59, Radiculopathy, lumbar region Spinal stenosis, lumbar region without neurogenic claudication Segmental and somatic dysfunction of sacral region Segmental and somatic dysfunction of lumbar region ? Chiropractic Manipulative Tx Spinal 3-4 Regions [id number]; 09/12/2024 13:37:00 CDT, Radiculopathy, lumbar region Spinal stenosis, lumbar region without neurogenic claudication Segmental and somatic dysfunction of sacral region Segmental and somatic dysfunction of lumbar region Segmental and somatic dy... D iagnosis: 2 . S egmental and somatic dysfunction of sacral region Comment: Ordered: Manual Therapy Tqs 1/> Regions Each 15 Minutes [id number]; 09/12/2024 13:37:00 CDT, 59, Radiculopathy, lumbar region Spinal stenosis, lumbar region without neurogenic claudication Segmental and somatic dysfunction of sacral region Segmental and somatic dysfunction of lumbar region ? Chiropractic Manipulative Tx Spinal 3-4 Regions [id number]; 09/12/2024 13:37:00 CDT, Radiculopathy, lumbar region Spinal stenosis, lumbar region without neurogenic claudication Segmental and somatic dysfunction of sacral region Segmental and somatic dysfunction of lumbar region Segmental and somatic dy... D iagnosis: 3 . S egmental and somatic dysfunction of lumbar region Comment: Ordered: Manual Therapy Tqs 1/> Regions Each 15 Minutes [id number]; 09/12/2024 13:37:00 CDT, 59, Radiculopathy, lumbar region Spinal stenosis, lumbar region without neurogenic claudication Segmental and somatic dysfunction of sacral region Segmental and somatic dysfunction of lumbar region ? Chiropractic Manipulative Tx Spinal 3-4 Regions [id number]; 09/12/2024 13:37:00 CDT, Radiculopathy, lumbar region Spinal stenosis, lumbar region without neurogenic claudication Segmental and somatic dysfunction of sacral region Segmental and somatic dysfunction of lumbar region Segmental and somatic dy... D iagnosis: 4 . S egmental and somatic dysfunction of thoracic region Comment: Ordered: Chiropractic Manipulative Tx Spinal 3-4 Regions [id number]; 09/12/2024 13:37:00 CDT, Radiculopathy, lumbar region Spinal stenosis, lumbar region without neurogenic claudication Segmental and somatic dysfunction of sacral region Segmental and somatic dysfunction of lumbar region Segmental and somatic dy... D iagnosis: 5 . R adiculopathy, lumbar region Comment: Ordered: Manual Therapy Tqs 1/> Regions Each 15 Minutes [id number]; 09/12/2024 13:37:00 CDT, 59, Radiculopathy, lumbar region Spinal stenosis, lumbar region without neurogenic claudication Segmental and somatic dysfunction of sacral region Segmental and somatic dysfunction of lumbar region ? Chiropractic Manipulative Tx Spinal 3-4 Regions [id number]; 09/12/2024 13:37:00 CDT, Radiculopathy, lumbar region Spinal stenosis, lumbar region without neurogenic claudication Segmental and somatic dysfunction of sacral region Segmental and somatic dysfunction of lumbar region Segmental and somatic dy... D iagnosis: S egmental and somatic dysfunction of cervical region Comment: Ordered: Chiropractic Manipulative Tx Spinal 3-4 Regions [id number]; 09/12/2024 13:37:00 CDT, Radiculopathy, lumbar region Spinal [...] Physician [address] [employer] Natalie KEYS, [facility] Main Line DSN/Comm: [phone] / [phone] 09/12/24 13:30:18 Extracted from:Title: BEH Therapist OP Initial Visit Note Author: TANA LIN, PhD, Psychology Date: 09/10/24 48 y/o , , [place], [place] assigned to [facility] and working as [employer] self[place] [facility] [place] consistent with depression including depressed [...] p t has received trauma-directed treatment in [id number] and reportedly symptoms are currently more manageable [...] Therapy Tqs 1/> Regions Each 15 Minutes [id number]; 09/05/2024 11:53:00 CDT, 59, Spinal stenosis, lumbar region without neurogenic claudication Radiculopathy, lumbar region Pain in left hip Segmental and somatic dysfunction of sacral region Segmental and somatic dysfunction of lumbar region ? Chiropractic Manipulative Tx Spinal 3-4 Regions [id number]; 09/05/2024 11:53:00 CDT, Spinal stenosis, lumbar region without neurogenic claudication Radiculopathy, lumbar region Pain in left hip Segmental and somatic dysfunction of sacral region Segmental and somatic dysfunction of lumbar region Segme... D iagnosis: 2 . R adiculopathy, lumbar region Comment: Ordered: Manual Therapy Tqs 1/> Regions Each 15 Minutes [id number]; 09/05/2024 11:53:00 CDT, 59, Spinal stenosis, lumbar region without neurogenic claudication Radiculopathy, lumbar region Pain in left hip Segmental and somatic dysfunction of sacral region Segmental and somatic dysfunction of lumbar region ? Chiropractic Manipulative Tx Spinal 3-4 Regions [id number]; 09/05/2024 11:53:00 CDT, Spinal stenosis, lumbar region without neurogenic claudication Radiculopathy, lumbar region Pain in left hip Segmental and somatic dysfunction of sacral region Segmental and somatic dysfunction of lumbar region Segme... D iagnosis: 3 . P ain in left hip Comment: Ordered: Manual Therapy Tqs 1/> Regions Each 15 Minutes [id number]; 09/05/2024 11:53:00 CDT, 59, Spinal stenosis, lumbar region without neurogenic claudication Radiculopathy, lumbar region Pain in left hip Segmental and somatic dysfunction of sacral region Segmental and somatic dysfunction of lumbar region ? Chiropractic Manipulative Tx Spinal 3-4 Regions [id number]; 09/05/2024 11:53:00 CDT, Spinal stenosis, lumbar region without neurogenic claudication Radiculopathy, lumbar region Pain in left hip Segmental and somatic dysfunction of sacral region Segmental and somatic dysfunction of lumbar region Segme... D iagnosis: 4 . S egmental and somatic dysfunction of sacral region Comment: Ordered: Manual Therapy Tqs 1/> Regions Each 15 Minutes [id number]; 09/05/2024 11:53:00 CDT, 59, Spinal stenosis, lumbar region without neurogenic claudication Radiculopathy, lumbar region Pain in left hip Segmental and somatic dysfunction of sacral region Segmental and somatic dysfunction of lumbar region ? Chiropractic Manipulative Tx Spinal 3-4 Regions [id number]; 09/05/2024 11:53:00 CDT, Spinal stenosis, lumbar region without neurogenic claudication Radiculopathy, lumbar region Pain in left hip Segmental and somatic dysfunction of sacral region Segmental and somatic dysfunction of lumbar region Segme... D iagnosis: 5 . S egmental and somatic dysfunction of lumbar region Comment: Ordered: Manual Therapy Tqs 1/> Regions Each 15 Minutes [id number]; 09/05/2024 11:53:00 CDT, 59, Spinal stenosis, lumbar region without neurogenic claudication Radiculopathy, lumbar region Pain in left hip Segmental and somatic dysfunction of sacral region Segmental and somatic dysfunction of lumbar region ? Chiropractic Manipulative Tx Spinal 3-4 Regions [id number]; 09/05/2024 11:53:00 CDT, Spinal stenosis, lumbar region without neurogenic claudication Radiculopathy, lumbar region Pain in left hip Segmental and somatic dysfunction of sacral region Segmental and somatic dysfunction of lumbar region Segme... D iagnosis: 6 . S egmental and somatic dysfunction of thoracic region Comment: Ordered: Chiropractic Manipulative Tx Spinal 3-4 Regions [id number]; 09/05/2024 11:53:00 CDT, Spinal stenosis, lumbar region without neurogenic claudication Radiculopathy, lumbar region Pain in left hip Segmental and somatic dysfunction of sacral region Segmental and somatic dysfunction of lumbar region Segme... D iagnosis: 7 . S egmental and somatic dysfunction of cervical region Comment: Ordered: Chiropractic Manipulative Tx Spinal 3-4 Regions [id number]; 09/05/2024 11:53:00 CDT, Spinal stenosis, lumbar region [...] [facility] Chiropractic Physician [facility] [employer] [facility], [facility] Line DSN/Comm: [phone] / [phone] 09/05/24 11:10:24 Extracted from:Title: Optometry- acute Author: [...] Fitness Assessment. 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 R adiculopathy, lumbar region Comment: Ordered: Manual Therapy Tqs 1/> Regions Each 15 Minutes [id number]; 08/23/2024 13:50:00 CDT, 59, Spinal stenosis, lumbar region without neurogenic claudication Radiculopathy, lumbar region Pain in left hip Segmental and somatic dysfunction of lumbar region Segmental and somatic dysfunction of thoracic region ... ? Chiropractic Manipulative Tx Spinal 3-4 Regions [id number]; 08/23/2024 13:50:00 CDT, Spinal stenosis, lumbar region without neurogenic claudication Radiculopathy, lumbar region Pain in left hip Segmental and somatic dysfunction of lumbar region Segmental and somatic dysfunction of thoracic region Seg... D iagnosis: 2 . S ryne stenosis, lumbar region without neurogenic claudication Comment: Ordered: Manual Therapy Tqs 1/> Regions Each 15 Minutes [id number]; 08/23/2024 13:50:00 CDT, 59, Spinal stenosis, lumbar region without neurogenic claudication Radiculopathy, lumbar region Pain in left hip Segmental and somatic dysfunction of lumbar region Segmental and somatic dysfunction of thoracic region ... ? Chiropractic Manipulative Tx Spinal 3-4 Regions [id number]; 08/23/2024 13:50:00 CDT, Spinal stenosis, lumbar region without neurogenic claudication Radiculopathy, lumbar region Pain in left hip Segmental and somatic dysfunction of lumbar region Segmental and somatic dysfunction of thoracic region Seg... D iagnosis: 3 . P ain in left hip Comment: Ordered: Manual Therapy Tqs 1/> Regions Each 15 Minutes [id number]; 08/23/2024 13:50:00 CDT, 59, Spinal stenosis, lumbar region without neurogenic claudication Radiculopathy, lumbar region Pain in left hip Segmental and somatic dysfunction of lumbar region Segmental and somatic dysfunction of thoracic region ... ? Chiropractic Manipulative Tx Spinal 3-4 Regions [id number]; 08/23/2024 13:50:00 CDT, Spinal stenosis, lumbar region without neurogenic claudication Radiculopathy, lumbar region Pain in left hip Segmental and somatic dysfunction of lumbar region Segmental and somatic dysfunction of thoracic region Seg... D iagnosis: 4 . S egmental and somatic dysfunction of lumbar region Comment: Ordered: Manual Therapy Tqs 1/> Regions Each 15 Minutes [id number]; 08/23/2024 13:50:00 CDT, 59, Spinal stenosis, lumbar region without neurogenic claudication Radiculopathy, lumbar region Pain in left hip Segmental and somatic dysfunction of lumbar region Segmental and somatic dysfunction of thoracic region ... ? Chiropractic Manipulative Tx Spinal 3-4 Regions [id number]; 08/23/2024 13:50:00 CDT, Spinal stenosis, lumbar region without neurogenic claudication Radiculopathy, lumbar region Pain in left hip Segmental and somatic dysfunction of lumbar region Segmental and somatic dysfunction of thoracic region Seg... D iagnosis: 5 . S egmental and somatic dysfunction of thoracic region Comment: Ordered: Manual Therapy Tqs 1/> Regions Each 15 Minutes [id number]; 08/23/2024 13:50:00 CDT, 59, Spinal stenosis, lumbar region without neurogenic claudication Radiculopathy, lumbar region Pain in left hip Segmental and somatic dysfunction of lumbar region Segmental and somatic dysfunction of thoracic region ... ? Chiropractic Manipulative Tx Spinal 3-4 Regions [id number]; 08/23/2024 13:50:00 CDT, Spinal stenosis, lumbar region without neurogenic claudication Radiculopathy, lumbar region Pain in left hip Segmental and somatic dysfunction of lumbar region Segmental and somatic dysfunction of thoracic region Seg... D iagnosis: 6 . S egmental and somatic dysfunction of cervical region Comment: Ordered: Manual Therapy Tqs 1/> Regions Each 15 Minutes [id number]; 08/23/2024 13:50:00 CDT, 59, Spinal stenosis, lumbar region without neurogenic claudication Radiculopathy, lumbar region Pain in left hip Segmental and somatic dysfunction of lumbar region Segmental and somatic dysfunction of thoracic region ... ? Chiropractic Manipulative Tx Spinal 3-4 Regions [id number]; 08/23/2024 13:50:00 CDT, Spinal stenosis, lumbar region [...] Physician 375 Operational Medical Readiness Natalie KEYS, [facility] Main Line DSN/Comm: [phone] / [phone] 08/23/24 13:34:16 Extracted from:Title: [facility] Sinusitis/Eye irritation Author: APRIL SELBY PA, [...] April Varghese TD, 1st Lt, [place] [address] Please note that this dictation was completed with computer voice recognition software, Vir2us. Quite often unanticipated grammatical, syntax, homophones, and [...] Therapy Tqs 1/> Regions Each 15 Minutes [id number]; 08/15/2024 13:27:00 CDT, 59, Spinal stenosis, lumbar region without neurogenic claudication Radiculopathy, lumbar region Segmental and somatic dysfunction of lumbar region ? Chiropractic Manipulative Tx Spinal 3-4 Regions [id number]; 08/15/2024 13:27:00 CDT, Spinal stenosis, lumbar region without neurogenic claudication Radiculopathy, lumbar region Segmental and somatic dysfunction of lumbar region Segmental and somatic dysfunction of thoracic region Segmental and somatic... D iagnosis: 2 . S ryne stenosis, lumbar region without neurogenic claudication Comment: Ordered: Manual Therapy Tqs 1/> Regions Each 15 Minutes [id number]; 08/15/2024 13:27:00 CDT, 59, Spinal stenosis, lumbar region without neurogenic claudication Radiculopathy, lumbar region Segmental and somatic dysfunction of lumbar region ? Chiropractic Manipulative Tx Spinal 3-4 Regions [id number]; 08/15/2024 13:27:00 CDT, Spinal stenosis, lumbar region without neurogenic claudication Radiculopathy, lumbar region Segmental and somatic dysfunction of lumbar region Segmental and somatic dysfunction of thoracic region Segmental and somatic... D iagnosis: 3 . S egmental and somatic dysfunction of lumbar region Comment: Ordered: Manual Therapy Tqs 1/> Regions Each 15 Minutes [id number]; 08/15/2024 13:27:00 CDT, 59, Spinal stenosis, lumbar region without neurogenic claudication Radiculopathy, lumbar region Segmental and somatic dysfunction of lumbar region ? Chiropractic Manipulative Tx Spinal 3-4 Regions [id number]; 08/15/2024 13:27:00 CDT, Spinal stenosis, lumbar region without neurogenic claudication Radiculopathy, lumbar region Segmental and somatic dysfunction of lumbar region Segmental and somatic dysfunction of thoracic region Segmental and somatic... D iagnosis: 4 . S egmental and somatic dysfunction of cervical region Comment: Ordered: Chiropractic Manipulative Tx Spinal 3-4 Regions [id number]; 08/15/2024 13:27:00 CDT, Spinal stenosis, lumbar region without neurogenic claudication Radiculopathy, lumbar region Segmental and somatic dysfunction of lumbar region Segmental and somatic dysfunction of thoracic region Segmental and somatic... D iagnosis: 5 . S egmental and somatic dysfunction of thoracic region Comment: Ordered: Chiropractic Manipulative Tx Spinal 3-4 Regions [id number]; 08/15/2024 13:27:00 CDT, Spinal stenosis, lumbar region [...] [facility]K Chiropractic Physician 375 Operational Medical Readiness [facility] Talib [facility] Main Line DSN/Comm: [phone] / [phone] 08/15/24 13:24:40 Extracted from:Title: FTR - Low back pain Author: BINU LIN DC Date: 08/08/24 D iagnosis: 1 . R adiculopathy, lumbar region Comment: Ordered: Chiropractic Manipulative Tx Spinal 3-4 Regions [id number]; 08/08/2024 13:37:00 CDT, Radiculopathy, lumbar region Spinal stenosis, lumbar region without neurogenic claudication Pain in left hip Segmental and somatic dysfunction of lumbar region Segmental and somatic dysfunction of thoracic region Seg... D iagnosis: 2 . S ryne stenosis, lumbar region without neurogenic claudication Comment: Ordered: Manual Therapy Tqs 1/> Regions Each 15 Minutes [id number]; 08/08/2024 13:37:00 CDT, 59, Spinal stenosis, lumbar region without neurogenic claudication Pain in left hip Segmental and somatic dysfunction of lumbar region ? Chiropractic Manipulative Tx Spinal 3-4 Regions [id number]; 08/08/2024 13:37:00 CDT, Radiculopathy, lumbar region Spinal stenosis, lumbar region without neurogenic claudication Pain in left hip Segmental and somatic dysfunction of lumbar region Segmental and somatic dysfunction of thoracic region Seg... D iagnosis: 3 . P ain in left hip Comment: Ordered: Manual Therapy Tqs 1/> Regions Each 15 Minutes [id number]; 08/08/2024 13:37:00 CDT, 59, Spinal stenosis, lumbar region without neurogenic claudication Pain in left hip Segmental and somatic dysfunction of lumbar region ? Chiropractic Manipulative Tx Spinal 3-4 Regions [id number]; 08/08/2024 13:37:00 CDT, Radiculopathy, lumbar region Spinal stenosis, lumbar region without neurogenic claudication Pain in left hip Segmental and somatic dysfunction of lumbar region Segmental and somatic dysfunction of thoracic region Seg... D iagnosis: 4 . S egmental and somatic dysfunction of sacral region Comment: Ordered: Chiropractic Manipulative Tx Spinal 3-4 Regions [id number]; 08/08/2024 13:37:00 CDT, Radiculopathy, lumbar region Spinal stenosis, lumbar region without neurogenic claudication Pain in left hip Segmental and somatic dysfunction of lumbar region Segmental and somatic dysfunction of thoracic region Seg... D iagnosis: 5 . S egmental and somatic dysfunction of lumbar region Comment: Ordered: Manual Therapy Tqs 1/> Regions Each 15 Minutes [id number]; 08/08/2024 13:37:00 CDT, 59, Spinal stenosis, lumbar region without neurogenic claudication Pain in left hip Segmental and somatic dysfunction of lumbar region ? Chiropractic Manipulative Tx Spinal 3-4 Regions [id number]; 08/08/2024 13:37:00 CDT, Radiculopathy, lumbar region Spinal stenosis, lumbar region without neurogenic claudication Pain in left hip Segmental and somatic dysfunction of lumbar region Segmental and somatic dysfunction of thoracic region Seg... D iagnosis: 6 . S egmental and somatic dysfunction of thoracic region Comment: Ordered: Chiropractic Manipulative Tx Spinal 3-4 Regions [id number]; 08/08/2024 13:37:00 CDT, Radiculopathy, lumbar region Spinal [...] [facility] Chiropractic Physician [facility] Medical Readiness [facility] Main Line DSN/Comm: [phone] / [phone] 08/08/24 13:13:15 Extracted from:Title: Referral for IDES [...] could explain the radicular pain). IAW AR [id number], Chapter 3-20h at a minimum, this SM [...] p rocess. 2. 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 Delmy nguyen performed multiple hospital visits including of his s who was brutally murdered. 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 ( 1 unit is 3 months long 40 hrs a week). 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 I n Feb 2023 he gained ADOS orders again and is currently serving on them. After conducting a head-to-toe physical examination and review of his medical records (JLV and LOGAN), I am concerned that he needs better documentation with regards to the followin) Bartlett delmy as been diagnosed with PTSD with [...] right shoulder (previously rated as DC 5203) Bartlett tore shoulder in LOD. 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 F or pain management he receives Botox injections every 2 months. 8) 20% rating for lumbar disc disease Bartlett has had many laboratory animal care veterinarian apts as well as Spinal Epidural injections [...] Tim had colitis in [address] [facility]. Initially thought to be a normal stomach bug, it went undiagnosed. A ccompanied with fevers, was placed on quarters for last 1.5 weeks of training for that summer. Ky aguero attempted to go home but was too ill to continue flight in [facility] airport. Delmy nguyen was transported VIA ambulance to local hospital where he had CT scan and diagnosed with colitis. Delmy nguyen had 104.5 fever and the infection? j umped ship and attacked his heart 2xs. E KG confirmed 2 heart attacks. Delmy nguyen was transferred to cardiac floor then ultimately the ICU where they gave a dozen IV AB. ?Bartlett recovered but was never the same. Ky Tim feels that this reoccurred several times but went misdiagnosed several times since then. A lso, 2023 he was diagnosed again with colitis and enteritis. 12) Neck pain Ky Tim has chronic neck pain and has seen chiropractic care. R ecently, Bartlett has developed resistance and intolerance to adjustments. [...] syndrome 5. C rohn disease Extracted from:Title: [facility]- Neck and anal pain Author: ANDREW [...] care for any urgent/emergent concerns or call [phone] and leave message with the clinic for any other concerns. Patient can also access [employer] at [email or web address] to leave message with PCM Team. A total of 20 minutes was spent on this visit reviewing previous records, counseling the patient on the listed diagnoses, reviewing/ordering tests, adjusting medications, and/or documenting the findings in this note. //SIGNED// Capt Andrew Pavon DO Manufactured Buildings Supervisor Physician, PGY-[address] [place] [address], HCOS/SGGF [facility] Talib KEYS This note was dictated using NanoPow[employer] dictation software. While it was proofread for errors, there may still be grammatical and dictation errors. Extracted from:Title: FTR - Low back pain Author: BINU LIN DC Date: 07/27/24 D iagnosis: 1 . R adiculopathy, lumbar region Comment: Ordered: Manual Therapy Tqs 1/> Regions Each 15 Minutes [id number]; 07/27/2024 09:32:00 CDT, 59, Radiculopathy, lumbar region Spinal stenosis, lumbar region without neurogenic claudication Segmental and somatic dysfunction of lumbar region ? Chiropractic Manipulative Tx Spinal 3-4 Regions [id number]; 07/27/2024 09:32:00 CDT, Radiculopathy, lumbar region Spinal stenosis, lumbar region without neurogenic claudication Segmental and somatic dysfunction of lumbar region Segmental and somatic dysfunction of thoracic region Segmental and somatic... D iagnosis: 2 . S ryne stenosis, lumbar region without neurogenic claudication Comment: Ordered: Manual Therapy Tqs 1/> Regions Each 15 Minutes [id number]; 07/27/2024 09:32:00 CDT, 59, Radiculopathy, lumbar region Spinal stenosis, lumbar region without neurogenic claudication Segmental and somatic dysfunction of lumbar region ? Chiropractic Manipulative Tx Spinal 3-4 Regions [id number]; 07/27/2024 09:32:00 CDT, Radiculopathy, lumbar region Spinal stenosis, lumbar region without neurogenic claudication Segmental and somatic dysfunction of lumbar region Segmental and somatic dysfunction of thoracic region Segmental and somatic... D iagnosis: 3 . S egmental and somatic dysfunction of lumbar region Comment: Ordered: Manual Therapy Tqs 1/> Regions Each 15 Minutes [id number]; 07/27/2024 09:32:00 CDT, 59, Radiculopathy, lumbar region Spinal stenosis, lumbar region without neurogenic claudication Segmental and somatic dysfunction of lumbar region ? Chiropractic Manipulative Tx Spinal 3-4 Regions [id number]; 07/27/2024 09:32:00 CDT, Radiculopathy, lumbar region Spinal stenosis, lumbar region without neurogenic claudication Segmental and somatic dysfunction of lumbar region Segmental and somatic dysfunction of thoracic region Segmental and somatic... D iagnosis: 4 . S egmental and somatic dysfunction of thoracic region Comment: Ordered: Chiropractic Manipulative Tx Spinal 3-4 Regions [id number]; 07/27/2024 09:32:00 CDT, Radiculopathy, lumbar region Spinal stenosis, lumbar region without neurogenic claudication Segmental and somatic dysfunction of lumbar region Segmental and somatic dysfunction of thoracic region Segmental and somatic... D iagnosis: 5 . S egmental and somatic dysfunction of cervical region Comment: Ordered: Chiropractic Manipulative Tx Spinal 3-4 Regions [id number]; 07/27/2024 09:32:00 CDT, Radiculopathy, lumbar region Spinal [...] Physician 375 Operational Medical Readiness [facility] DSN/Comm: [phone] / [phone] 07/27/24 09:39:34 Extracted from:Title: [facility] MARVIN/OME Author: LORRAINE NAQVI PA Date: [...] and agreement. LORRAINE NAQVI, 1st Lt, PA-C [facility] [place] [address] Extracted from:Title: [facility] LBP Author: ERIK VERA, DO Date: [...] Duration: 5 days, First Dose: 06/01/2024 13:00:00 COMPRESSOR STATION ENGINEER, Stop Date: 06/06/2024 12:59:00 COMPRESSOR STATION ENGINEER, 06/01/2024 12:02:00 COMPRESSOR STATION ENGINEER Orders: ketorolac(Toradol 15 mg/mL injectable solution), 15 mg, IntraMuscular, every 6 hr, # 1 mL, 0 total refill(s), Acute, 06/02/2024, Pharmacy: [facility] [Not filled] Erik Vera DO, Capt, [place], Family Physician [facility]/Owner Professional Engineer [facility] Residency Program in [place], [place] [address] [address] Extracted from:Title: [facility] colitis work-up Author: ERIK VERA DO [...] Erik Vera DO, , [place], Family Physician [facility]/Owner Professional Engineer [facility] Medicine Residency Program in [place], [place] [address] [address] Extracted from:Title: [facility] Sick call - F/u Feb 16 ER visit for colitis Author: FADUMO CASTRO MD Date: 02/21/24 1. 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 P resbyopia -New Spectacle rx dispensed today as seen below (Manifest=Final Rx), lens options recommended per pt ADLs MANIFEST REFRACTION: OD: - 0.50-0.07e842. . . . . . 20/15 OS: pl-0.76p217. . . . . . 2 0/15 Near Add: + 1.75 20/20 Computer Rx OD: +0.50-0.19r728 OS: +1.00-0.80o900 - Discussed 2 pair requirement ([facility]). - Glasses ordered in SRTS. F OC [...] completed for patient to take to unit ([facility], etc) to update into their MEDPROS system. RTC first avail for DFE only (ok to dilate at screening), otherwise 1 year Ordered: cycloSPORINE ophthalmic(Restasis 0.05% ophthalmic emulsion), 1 drop(s), Eye-Both, every 12 hr, # 60 EA, 11 total refill(s), Maintenance, 1 drop(s) Eye-Both every 12 hr, Pharmacy: [facility] [Not filled] Diagnosis: 1 . K eratoconjunctivitis sicca Comment: Ordered: Restasis 0.05% ophthalmic emulsion; 1 drop(s), Eye-Both, every 12 hr, # 60 EA, 11 total refill(s), Maintenance, 1 drop(s) Eye-Both every 12 hr, Pharmacy: [facility] [Not filled] ? Ophthalmological Medical Xm&Lizz Carey New Pt 1/> Vst [id number]; 02/07/2024 14:58:00 CDT ? Fitting Spectacles Xcpt Aphakia Monofocal [id number]; 02/07/2024 14:58:00 CDT ? Determination Refractive State [id number]; 02/07/2024 14:58:00 CDT D iagnosis: 2 . P resbyopia Comment: Ordered: Restasis 0.05% ophthalmic emulsion; 1 drop(s), Eye-Both, every 12 hr, # 60 EA, 11 total refill(s), Maintenance, 1 drop(s) Eye-Both every 12 hr, Pharmacy: [facility] [Not filled] ? Ophthalmological Medical &Lizz Carey New Pt / Vst [id number]; 02/07/2024 14:58:00 CDT ? Fitting Spectacles Xcpt Aphakia Monofocal 65078; 02/07/2024 14:58:00 CDT ? Determination Refractive State [id number]; 02/07/2024 14:58:00 CDT End of Orders Extracted [...] O rdered: Fundus Photography w/Interpretation + Report [id number]; 08/19/2022 08:44:00 EDT ? Ophthalmological Medical &[facility] [place] [id number]; 08/19/2022 08:44:00 EDT End of Orders Future Appointments Appointment Date: 11/28/2024 01:00:00 PM Scheduled Provider: BINU LIN DC [facility]oint[facility] Type: CHIRO FTR Appointment Date: 12/04/2024 08:00:00 AM Scheduled Provider: TANA LIN, PhD, Psychology Location: [id number] Appointment Type: BH FTR Appointment Date: 12/06/2024 12:40:00 PM Scheduled Provider: APRIL SELBY PA, Family Medicine Location: [id number] Appointment Type: REDJUAN PABLO FTR Appointment Date: 12/07/2024 03:00:00 PM Scheduled Provider: BINU LIN DC Location: [address] [place] [address] Appointment Type: CHIRO FTR Future Scheduled TestsRadiologyXR Spine Cervical 4 or 5 Views 07/31/24XR Spine Thoracic 4+ Views 07/31/24 11/23/[address] [place] [address] Olu Assessment and Plan Extracted from:Title : FTR - back pain Author: BINU LIN DC Date: 11/02/24 D iagnosis: 1 . S ryne stenosis, lumbar region without neurogenic claudication Comment: Ordered: Manual Therapy Tqs 1/> Regions Each 15 Minutes [id number]; 11/02/2024 13:23:00 CDT, 59, Spinal stenosis, lumbar region without neurogenic claudication Radiculopathy, lumbar region Pain in left hip Segmental and somatic dysfunction of lumbar region ? Chiropractic Manipulative Tx Spinal 3-4 Regions [id number]; 11/02/2024 13:23:00 CDT, Spinal stenosis, lumbar region without neurogenic claudication Radiculopathy, lumbar region Pain in left hip Segmental and somatic dysfunction of lumbar region Segmental and somatic dysfunction of thoracic region Seg... D iagnosis: 2 . R adiculopathy, lumbar region Comment: Ordered: Manual Therapy Tqs 1/> Regions Each 15 Minutes [id number]; 11/02/2024 13:23:00 CDT, 59, Spinal stenosis, lumbar region without neurogenic claudication Radiculopathy, lumbar region Pain in left hip Segmental and somatic dysfunction of lumbar region ? Chiropractic Manipulative Tx Spinal 3-4 Regions [id number]; 11/02/2024 13:23:00 CDT, Spinal stenosis, lumbar region without neurogenic claudication Radiculopathy, lumbar region Pain in left hip Segmental and somatic dysfunction of lumbar region Segmental and somatic dysfunction of thoracic region Seg... D iagnosis: 3 . P ain in left hip Comment: Ordered: Manual Therapy Tqs 1/> Regions Each 15 Minutes [id number]; 11/02/2024 13:23:00 CDT, 59, Spinal stenosis, lumbar region without neurogenic claudication Radiculopathy, lumbar region Pain in left hip Segmental and somatic dysfunction of lumbar region ? Chiropractic Manipulative Tx Spinal 3-4 Regions [id number]; 11/02/2024 13:23:00 CDT, Spinal stenosis, lumbar region without neurogenic claudication Radiculopathy, lumbar region Pain in left hip Segmental and somatic dysfunction of lumbar region Segmental and somatic dysfunction of thoracic region Seg... D iagnosis: 4 . S egmental and somatic dysfunction of lumbar region Comment: Ordered: Manual Therapy Tqs 1/> Regions Each 15 Minutes [id number]; 11/02/2024 13:23:00 CDT, 59, Spinal stenosis, lumbar region without neurogenic claudication Radiculopathy, lumbar region Pain in left hip Segmental and somatic dysfunction of lumbar region ? Chiropractic Manipulative Tx Spinal 3-4 Regions [id number]; 11/02/2024 13:23:00 CDT, Spinal stenosis, lumbar region without neurogenic claudication Radiculopathy, lumbar region Pain in left hip Segmental and somatic dysfunction of lumbar region Segmental and somatic dysfunction of thoracic region Seg... D iagnosis: 5 . S egmental and somatic dysfunction of thoracic region Comment: Ordered: Chiropractic Manipulative Tx Spinal 3-4 Regions [id number]; 11/02/2024 13:23:00 CDT, Spinal stenosis, lumbar region without neurogenic claudication Radiculopathy, lumbar region Pain in left hip Segmental and somatic dysfunction of lumbar region Segmental and somatic dysfunction of thoracic region Seg... D iagnosis: 6 . S egmental and somatic dysfunction of cervical region Comment: Ordered: Chiropractic Manipulative Tx Spinal 3-4 Regions 49785; 11/02/2024 13:23:00 CDT, Spinal stenosis, lumbar region [...] DC, [facility] Chiropractic Physician 375 Operational Medical [facility] Main Line DSN/Comm: [phone] / [phone] 11/02/24 13:22:10 Extracted from:Title: [facility] HL Author: LORRAINE NAQVI PA Date: [...] agreement. LORRAINE NAQVI E, 1st Lt, [place] [address] Extracted from:Title: FTR - back pain Author: BINU LIN DC Date: 10/26/24 D iagnosis: 1 . R adiculopathy, lumbar region Comment: Ordered: Manual Therapy Tqs 1/> Regions Each 15 Minutes [id number]; 10/26/2024 15:27:00 CDT, 59, Radiculopathy, lumbar region Spinal stenosis, lumbar region without neurogenic claudication Pain in left hip Segmental and somatic dysfunction of lumbar region ? Chiropractic Manipulative Tx Spinal 3-4 Regions 35485; 10/26/2024 15:27:00 CDT, Radiculopathy, lumbar region Spinal stenosis, lumbar region without neurogenic claudication Pain in left hip Segmental and somatic dysfunction of lumbar region Segmental and somatic dysfunction of thoracic region Seg... D iagnosis: 2 . S ryne stenosis, lumbar region without neurogenic claudication Comment: Ordered: Manual Therapy Tqs 1/> Regions Each 15 Minutes 40189; 10/26/2024 15:27:00 CDT, 59, Radiculopathy, lumbar region Spinal stenosis, lumbar region without neurogenic claudication Pain in left hip Segmental and somatic dysfunction of lumbar region ? Chiropractic Manipulative Tx Spinal 3-4 Regions 32552; 10/26/2024 15:27:00 CDT, Radiculopathy, lumbar region Spinal stenosis, lumbar region without neurogenic claudication Pain in left hip Segmental and somatic dysfunction of lumbar region Segmental and somatic dysfunction of thoracic region Seg... D iagnosis: 3 . P ain in left hip Comment: Ordered: Manual Therapy Tqs 1/> Regions Each 15 Minutes [id number]; 10/26/2024 15:27:00 CDT, 59, Radiculopathy, lumbar region Spinal stenosis, lumbar region without neurogenic claudication Pain in left hip Segmental and somatic dysfunction of lumbar region ? Chiropractic Manipulative Tx Spinal 3-4 Regions 93999; 10/26/2024 15:27:00 CDT, Radiculopathy, lumbar region Spinal stenosis, lumbar region without neurogenic claudication Pain in left hip Segmental and somatic dysfunction of lumbar region Segmental and somatic dysfunction of thoracic region Seg... D iagnosis: 4 . S egmental and somatic dysfunction of lumbar region Comment: Ordered: Manual Therapy Tqs 1/> Regions Each 15 Minutes [id number]; 10/26/2024 15:27:00 CDT, 59, Radiculopathy, lumbar region Spinal stenosis, lumbar region without neurogenic claudication Pain in left hip Segmental and somatic dysfunction of lumbar region ? Chiropractic Manipulative Tx Spinal 3-4 Regions [id number]; 10/26/2024 15:27:00 CDT, Radiculopathy, lumbar region Spinal stenosis, lumbar region without neurogenic claudication Pain in left hip Segmental and somatic dysfunction of lumbar region Segmental and somatic dysfunction of thoracic region Seg... D iagnosis: 5 . S egmental and somatic dysfunction of thoracic region Comment: Ordered: Chiropractic Manipulative Tx Spinal 3-4 Regions [id number]; 10/26/2024 15:27:00 CDT, Radiculopathy, lumbar region Spinal stenosis, lumbar region without neurogenic claudication Pain in left hip Segmental and somatic dysfunction of lumbar region Segmental and somatic dysfunction of thoracic region Seg... D iagnosis: 6 . S egmental and somatic dysfunction of cervical region Comment: Ordered: Chiropractic Manipulative Tx Spinal 3-4 Regions [id number]; 10/26/2024 15:27:00 CDT, Radiculopathy, lumbar region Spinal [...] [facility] Chiropractic Physician [facility] Main Line DSN/Comm: [phone] / [phone] 10/26/24 15:25:29 Extracted from:Title: BEH Therapist OP Follow Up Note Author: TANA LIN, PhD, Psychology Date: 10/17/24 48 y/o , , male, [place] assigned to [facility] and working as [employer] [place] [facility] [place] consistent with depression including depressed [...] p t has received trauma-directed treatment in [id number] and reportedly symptoms are currently more manageable [...] Therapy Tqs 1/> Regions Each 15 Minutes [id number]; 10/09/2024 13:28:00 CDT, 59, Radiculopathy, lumbar region Spinal stenosis, lumbar region without neurogenic claudication Segmental and somatic dysfunction of sacral region Segmental and somatic dysfunction of lumbar region D iagnosis: 2 . S ryne stenosis, lumbar region without neurogenic claudication Comment: Ordered: Manual Therapy Tqs 1/> Regions Each 15 Minutes [id number]; 10/09/2024 13:28:00 CDT, 59, Radiculopathy, lumbar region Spinal stenosis, lumbar region without neurogenic claudication Segmental and somatic dysfunction of sacral region Segmental and somatic dysfunction of lumbar region ? Chiropractic Manipulative Tx Spinal 3-4 Regions [id number]; 10/09/2024 13:28:00 CDT, Spinal stenosis, lumbar region without neurogenic claudication Segmental and somatic dysfunction of sacral region Segmental and somatic dysfunction of thoracic region Segmental and somatic dysfunction of lumbar region D iagnosis: 3 . P ain in left hip Comment: Ordered: Chiropractic Manipulative Therapy, Extraspinal [id number]; 10/09/2024 13:28:00 CDT, Pain in left hip D iagnosis: 4 . S egmental and somatic dysfunction of lumbar region Comment: Ordered: Manual Therapy Tqs 1/> Regions Each 15 Minutes [id number]; 10/09/2024 13:28:00 CDT, 59, Radiculopathy, lumbar region Spinal stenosis, lumbar region without neurogenic claudication Segmental and somatic dysfunction of sacral region Segmental and somatic dysfunction of lumbar region ? Chiropractic Manipulative Tx Spinal 3-4 Regions [id number]; 10/09/2024 13:28:00 CDT, Spinal stenosis, lumbar region without neurogenic claudication Segmental and somatic dysfunction of sacral region Segmental and somatic dysfunction of thoracic region Segmental and somatic dysfunction of lumbar region D iagnosis: 5 . S egmental and somatic dysfunction of thoracic region Comment: Ordered: Chiropractic Manipulative Tx Spinal 3-4 Regions [id number]; 10/09/2024 13:28:00 CDT, Spinal stenosis, lumbar region without neurogenic claudication Segmental and somatic dysfunction of sacral region Segmental and somatic dysfunction of thoracic region Segmental and somatic dysfunction of lumbar region D iagnosis: 6 . S egmental and somatic dysfunction of sacral region Comment: Ordered: Manual Therapy Tqs 1/> Regions Each 15 Minutes [id number]; 10/09/2024 13:28:00 CDT, 59, Radiculopathy, lumbar region Spinal stenosis, lumbar region without neurogenic claudication Segmental and somatic dysfunction of sacral region Segmental and somatic dysfunction of lumbar region ? Chiropractic Manipulative Tx Spinal 3-4 Regions [id number]; 10/09/2024 13:28:00 CDT, Spinal stenosis, lumbar region [...] Physician [address] [employer] Natalie Mayers [facility] Main Line DSN/Comm: [phone] / [phone] 10/09/24 13:00:52 Extracted from:Title: BEH Therapist OP Follow Up Note Author: TANA LIN, PhD, Psychology Date: 10/04/24 48 y/o , , male, [place] assigned to [facility] and working as [place] self[place] [facility] [place] consistent with depression including depressed [...] p sonali has received trauma-directed treatment in [id number] and reportedly symptoms are currently more manageable [...] Therapy Tqs 1/> Regions Each 15 Minutes [id number]; 09/25/2024 13:52:00 CDT, 59, Radiculopathy, lumbar region Spinal stenosis, lumbar region without neurogenic claudication Segmental and somatic dysfunction of sacral region Segmental and somatic dysfunction of lumbar region ? Chiropractic Manipulative Tx Spinal 3-4 Regions [id number]; 09/25/2024 13:52:00 CDT, Radiculopathy, lumbar region Spinal stenosis, lumbar region without neurogenic claudication Segmental and somatic dysfunction of sacral region Segmental and somatic dysfunction of lumbar region Segmental and somatic dy... D iagnosis: 2 . S ryne stenosis, lumbar region without neurogenic claudication Comment: Ordered: Manual Therapy Tqs 1/> Regions Each 15 Minutes [id number]; 09/25/2024 13:52:00 CDT, 59, Radiculopathy, lumbar region Spinal stenosis, lumbar region without neurogenic claudication Segmental and somatic dysfunction of sacral region Segmental and somatic dysfunction of lumbar region ? Chiropractic Manipulative Tx Spinal 3-4 Regions [id number]; 09/25/2024 13:52:00 CDT, Radiculopathy, lumbar region Spinal stenosis, lumbar region without neurogenic claudication Segmental and somatic dysfunction of sacral region Segmental and somatic dysfunction of lumbar region Segmental and somatic dy... D iagnosis: 3 . S egmental and somatic dysfunction of sacral region Comment: Ordered: Manual Therapy Tqs 1/> Regions Each 15 Minutes [id number]; 09/25/2024 13:52:00 CDT, 59, Radiculopathy, lumbar region Spinal stenosis, lumbar region without neurogenic claudication Segmental and somatic dysfunction of sacral region Segmental and somatic dysfunction of lumbar region ? Chiropractic Manipulative Tx Spinal 3-4 Regions [id number]; 09/25/2024 13:52:00 CDT, Radiculopathy, lumbar region Spinal stenosis, lumbar region without neurogenic claudication Segmental and somatic dysfunction of sacral region Segmental and somatic dysfunction of lumbar region Segmental and somatic dy... D iagnosis: 4 . S egmental and somatic dysfunction of lumbar region Comment: Ordered: Manual Therapy Tqs 1/> Regions Each 15 Minutes [id number]; 09/25/2024 13:52:00 CDT, 59, Radiculopathy, lumbar region Spinal stenosis, lumbar region without neurogenic claudication Segmental and somatic dysfunction of sacral region Segmental and somatic dysfunction of lumbar region ? Chiropractic Manipulative Tx Spinal 3-4 Regions [id number]; 09/25/2024 13:52:00 CDT, Radiculopathy, lumbar region Spinal stenosis, lumbar region without neurogenic claudication Segmental and somatic dysfunction of sacral region Segmental and somatic dysfunction of lumbar region Segmental and somatic dy... D iagnosis: 5 . S egmental and somatic dysfunction of thoracic region Comment: Ordered: Chiropractic Manipulative Tx Spinal 3-4 Regions [id number]; 09/25/2024 13:52:00 CDT, Radiculopathy, lumbar region Spinal stenosis, lumbar region without neurogenic claudication Segmental and somatic dysfunction of sacral region Segmental and somatic dysfunction of lumbar region Segmental and somatic dy... D iagnosis: 6 . S egmental and somatic dysfunction of cervical region Comment: Ordered: Chiropractic Manipulative Tx Spinal 3-4 Regions [id number]; 09/25/2024 13:52:00 CDT, Radiculopathy, lumbar region Spinal [...] [facility] Chiropractic Physician [facility] [employer] Main Line DSN/Comm: [phone] / [phone] 09/25/24 13:52:13 Extracted from:Title: FTR - Low back pain Author: BINU LIN DC Date: 09/12/24 D iagnosis: 1 . S ryne stenosis, lumbar region without neurogenic claudication Comment: Ordered: Manual Therapy Tqs 1/> Regions Each 15 Minutes [id number]; 09/12/2024 13:37:00 CDT, 59, Radiculopathy, lumbar region Spinal stenosis, lumbar region without neurogenic claudication Segmental and somatic dysfunction of sacral region Segmental and somatic dysfunction of lumbar region ? Chiropractic Manipulative Tx Spinal 3-4 Regions [id number]; 09/12/2024 13:37:00 CDT, Radiculopathy, lumbar region Spinal stenosis, lumbar region without neurogenic claudication Segmental and somatic dysfunction of sacral region Segmental and somatic dysfunction of lumbar region Segmental and somatic dy... D iagnosis: 2 . S egmental and somatic dysfunction of sacral region Comment: Ordered: Manual Therapy Tqs 1/> Regions Each 15 Minutes [id number]; 09/12/2024 13:37:00 CDT, 59, Radiculopathy, lumbar region Spinal stenosis, lumbar region without neurogenic claudication Segmental and somatic dysfunction of sacral region Segmental and somatic dysfunction of lumbar region ? Chiropractic Manipulative Tx Spinal 3-4 Regions [id number]; 09/12/2024 13:37:00 CDT, Radiculopathy, lumbar region Spinal stenosis, lumbar region without neurogenic claudication Segmental and somatic dysfunction of sacral region Segmental and somatic dysfunction of lumbar region Segmental and somatic dy... D iagnosis: 3 . S egmental and somatic dysfunction of lumbar region Comment: Ordered: Manual Therapy Tqs 1/> Regions Each 15 Minutes [id number]; 09/12/2024 13:37:00 CDT, 59, Radiculopathy, lumbar region Spinal stenosis, lumbar region without neurogenic claudication Segmental and somatic dysfunction of sacral region Segmental and somatic dysfunction of lumbar region ? Chiropractic Manipulative Tx Spinal 3-4 Regions [id number]; 09/12/2024 13:37:00 CDT, Radiculopathy, lumbar region Spinal stenosis, lumbar region without neurogenic claudication Segmental and somatic dysfunction of sacral region Segmental and somatic dysfunction of lumbar region Segmental and somatic dy... D iagnosis: 4 . S egmental and somatic dysfunction of thoracic region Comment: Ordered: Chiropractic Manipulative Tx Spinal 3-4 Regions [id number]; 09/12/2024 13:37:00 CDT, Radiculopathy, lumbar region Spinal stenosis, lumbar region without neurogenic claudication Segmental and somatic dysfunction of sacral region Segmental and somatic dysfunction of lumbar region Segmental and somatic dy... D iagnosis: 5 . R adiculopathy, lumbar region Comment: Ordered: Manual Therapy Tqs 1/> Regions Each 15 Minutes [id number]; 09/12/2024 13:37:00 CDT, 59, Radiculopathy, lumbar region Spinal stenosis, lumbar region without neurogenic claudication Segmental and somatic dysfunction of sacral region Segmental and somatic dysfunction of lumbar region ? Chiropractic Manipulative Tx Spinal 3-4 Regions [id number]; 09/12/2024 13:37:00 CDT, Radiculopathy, lumbar region Spinal stenosis, lumbar region without neurogenic claudication Segmental and somatic dysfunction of sacral region Segmental and somatic dysfunction of lumbar region Segmental and somatic dy... D iagnosis: S egmental and somatic dysfunction of cervical region Comment: Ordered: Chiropractic Manipulative Tx Spinal 3-4 Regions [id number]; 09/12/2024 13:37:00 CDT, Radiculopathy, lumbar region Spinal [...] Physician [address] [employer] Read[employer] Natalie Mayers [facility] Main Line DSN/Comm: [phone] / [phone] 09/12/24 13:30:18 Extracted from:Title: BEH Therapist OP Initial Visit Note Author: TANA LIN, PhD, Psychology Date: 09/10/24 48 y/o , , [place], [place] assigned to [facility] and working as [employer] self[place] [facility] [place] consistent with depression including depressed [...] p t has received trauma-directed treatment in [id number] and reportedly symptoms are currently more manageable [...] Therapy Tqs 1/> Regions Each 15 Minutes [id number]; 09/05/2024 11:53:00 CDT, 59, Spinal stenosis, lumbar region without neurogenic claudication Radiculopathy, lumbar region Pain in left hip Segmental and somatic dysfunction of sacral region Segmental and somatic dysfunction of lumbar region ? Chiropractic Manipulative Tx Spinal 3-4 Regions [id number]; 09/05/2024 11:53:00 CDT, Spinal stenosis, lumbar region without neurogenic claudication Radiculopathy, lumbar region Pain in left hip Segmental and somatic dysfunction of sacral region Segmental and somatic dysfunction of lumbar region Segme... D iagnosis: 2 . R adiculopathy, lumbar region Comment: Ordered: Manual Therapy Tqs 1/> Regions Each 15 Minutes [id number]; 09/05/2024 11:53:00 CDT, 59, Spinal stenosis, lumbar region without neurogenic claudication Radiculopathy, lumbar region Pain in left hip Segmental and somatic dysfunction of sacral region Segmental and somatic dysfunction of lumbar region ? Chiropractic Manipulative Tx Spinal 3-4 Regions [id number]; 09/05/2024 11:53:00 CDT, Spinal stenosis, lumbar region without neurogenic claudication Radiculopathy, lumbar region Pain in left hip Segmental and somatic dysfunction of sacral region Segmental and somatic dysfunction of lumbar region Segme... D iagnosis: 3 . P ain in left hip Comment: Ordered: Manual Therapy Tqs 1/> Regions Each 15 Minutes [id number]; 09/05/2024 11:53:00 CDT, 59, Spinal stenosis, lumbar region without neurogenic claudication Radiculopathy, lumbar region Pain in left hip Segmental and somatic dysfunction of sacral region Segmental and somatic dysfunction of lumbar region ? Chiropractic Manipulative Tx Spinal 3-4 Regions [id number]; 09/05/2024 11:53:00 CDT, Spinal stenosis, lumbar region without neurogenic claudication Radiculopathy, lumbar region Pain in left hip Segmental and somatic dysfunction of sacral region Segmental and somatic dysfunction of lumbar region Segme... D iagnosis: 4 . S egmental and somatic dysfunction of sacral region Comment: Ordered: Manual Therapy Tqs 1/> Regions Each 15 Minutes [id number]; 09/05/2024 11:53:00 CDT, 59, Spinal stenosis, lumbar region without neurogenic claudication Radiculopathy, lumbar region Pain in left hip Segmental and somatic dysfunction of sacral region Segmental and somatic dysfunction of lumbar region ? Chiropractic Manipulative Tx Spinal 3-4 Regions [id number]; 09/05/2024 11:53:00 CDT, Spinal stenosis, lumbar region without neurogenic claudication Radiculopathy, lumbar region Pain in left hip Segmental and somatic dysfunction of sacral region Segmental and somatic dysfunction of lumbar region Segme... D iagnosis: 5 . S egmental and somatic dysfunction of lumbar region Comment: Ordered: Manual Therapy Tqs 1/> Regions Each 15 Minutes [id number]; 09/05/2024 11:53:00 CDT, 59, Spinal stenosis, lumbar region without neurogenic claudication Radiculopathy, lumbar region Pain in left hip Segmental and somatic dysfunction of sacral region Segmental and somatic dysfunction of lumbar region ? Chiropractic Manipulative Tx Spinal 3-4 Regions [id number]; 09/05/2024 11:53:00 CDT, Spinal stenosis, lumbar region without neurogenic claudication Radiculopathy, lumbar region Pain in left hip Segmental and somatic dysfunction of sacral region Segmental and somatic dysfunction of lumbar region Segme... D iagnosis: 6 . S egmental and somatic dysfunction of thoracic region Comment: Ordered: Chiropractic Manipulative Tx Spinal 3-4 Regions [id number]; 09/05/2024 11:53:00 CDT, Spinal stenosis, lumbar region without neurogenic claudication Radiculopathy, lumbar region Pain in left hip Segmental and somatic dysfunction of sacral region Segmental and somatic dysfunction of lumbar region Segme... D iagnosis: 7 . S egmental and somatic dysfunction of cervical region Comment: Ordered: Chiropractic Manipulative Tx Spinal 3-4 Regions [id number]; 09/05/2024 11:53:00 CDT, Spinal stenosis, lumbar region [...] Physician 375 [employer] Readiness Natalie Mayers [facility] Main Line DSN/Comm: [phone] / [phone] 09/05/24 11:10:24 Extracted from:Title: Optometry- acute Author: [...] [employer]. LUH CARBAJAL, [employer], OD [employer] [place], [place] Extracted from:Title: FTR - Low back pain Author: BINU LIN DC Date: 08/23/24 D iagnosis: 1 . R adiculopathy, lumbar region Comment: Ordered: Manual Therapy Tqs 1/> Regions Each 15 Minutes [id number]; 08/23/2024 13:50:00 CDT, 59, Spinal stenosis, lumbar region without neurogenic claudication Radiculopathy, lumbar region Pain in left hip Segmental and somatic dysfunction of lumbar region Segmental and somatic dysfunction of thoracic region ... ? Chiropractic Manipulative Tx Spinal 3-4 Regions [id number]; 08/23/2024 13:50:00 CDT, Spinal stenosis, lumbar region without neurogenic claudication Radiculopathy, lumbar region Pain in left hip Segmental and somatic dysfunction of lumbar region Segmental and somatic dysfunction of thoracic region Seg... D iagnosis: 2 . S ryne stenosis, lumbar region without neurogenic claudication Comment: Ordered: Manual Therapy Tqs 1/> Regions Each 15 Minutes [id number]; 08/23/2024 13:50:00 CDT, 59, Spinal stenosis, lumbar region without neurogenic claudication Radiculopathy, lumbar region Pain in left hip Segmental and somatic dysfunction of lumbar region Segmental and somatic dysfunction of thoracic region ... ? Chiropractic Manipulative Tx Spinal 3-4 Regions [id number]; 08/23/2024 13:50:00 CDT, Spinal stenosis, lumbar region without neurogenic claudication Radiculopathy, lumbar region Pain in left hip Segmental and somatic dysfunction of lumbar region Segmental and somatic dysfunction of thoracic region Seg... D iagnosis: 3 . P ain in left hip Comment: Ordered: Manual Therapy Tqs 1/> Regions Each 15 Minutes [id number]; 08/23/2024 13:50:00 CDT, 59, Spinal stenosis, lumbar region without neurogenic claudication Radiculopathy, lumbar region Pain in left hip Segmental and somatic dysfunction of lumbar region Segmental and somatic dysfunction of thoracic region ... ? Chiropractic Manipulative Tx Spinal 3-4 Regions [id number]; 08/23/2024 13:50:00 CDT, Spinal stenosis, lumbar region without neurogenic claudication Radiculopathy, lumbar region Pain in left hip Segmental and somatic dysfunction of lumbar region Segmental and somatic dysfunction of thoracic region Seg... D iagnosis: 4 . S egmental and somatic dysfunction of lumbar region Comment: Ordered: Manual Therapy Tqs 1/> Regions Each 15 Minutes [id number]; 08/23/2024 13:50:00 CDT, 59, Spinal stenosis, lumbar region without neurogenic claudication Radiculopathy, lumbar region Pain in left hip Segmental and somatic dysfunction of lumbar region Segmental and somatic dysfunction of thoracic region ... ? Chiropractic Manipulative Tx Spinal 3-4 Regions [id number]; 08/23/2024 13:50:00 CDT, Spinal stenosis, lumbar region without neurogenic claudication Radiculopathy, lumbar region Pain in left hip Segmental and somatic dysfunction of lumbar region Segmental and somatic dysfunction of thoracic region Seg... D iagnosis: 5 . S egmental and somatic dysfunction of thoracic region Comment: Ordered: Manual Therapy Tqs 1/> Regions Each 15 Minutes [id number]; 08/23/2024 13:50:00 CDT, 59, Spinal stenosis, lumbar region without neurogenic claudication Radiculopathy, lumbar region Pain in left hip Segmental and somatic dysfunction of lumbar region Segmental and somatic dysfunction of thoracic region ... ? Chiropractic Manipulative Tx Spinal 3-4 Regions [id number]; 08/23/2024 13:50:00 CDT, Spinal stenosis, lumbar region without neurogenic claudication Radiculopathy, lumbar region Pain in left hip Segmental and somatic dysfunction of lumbar region Segmental and somatic dysfunction of thoracic region Seg... D iagnosis: 6 . S egmental and somatic dysfunction of cervical region Comment: Ordered: Manual Therapy Tqs 1/> Regions Each 15 Minutes [id number]; 08/23/2024 13:50:00 CDT, 59, Spinal stenosis, lumbar region without neurogenic claudication Radiculopathy, lumbar region Pain in left hip Segmental and somatic dysfunction of lumbar region Segmental and somatic dysfunction of thoracic region ... ? Chiropractic Manipulative Tx Spinal 3-4 Regions [id number]; 08/23/2024 13:50:00 CDT, Spinal stenosis, lumbar region [...] Physician 375 [employer] Medical Readiness Natalie Mayers [facility] Main Line DSN/Comm: [phone] / [phone] 08/23/24 13:34:16 Extracted from:Title: [facility] Sinusitis/Eye irritation Author: APRIL SELBY PA, [...] tab(s), 0 total refill(s), Acute, 08/30/2024, Pharmacy: [facility], Respiratory, sinusitis [Not filled] guaiFENesin(guaiFENesin 600 mg oral tablet, extended release), 1 tab(s), Oral, every 12 hr, # 20 tab(s), 0 total refill(s), Acute, 09/06/2024, Pharmacy: [facility] [Last filled 08/23/24] 2. E [...] U April Menjivar, 1st Lt, [place] [address] Please note that this dictation was completed with computer voice recognition software, [employer]. Quite often unanticipated grammatical, syntax, homophones, and [...] Therapy Tqs 1/> Regions Each 15 Minutes [id number]; 08/15/2024 13:27:00 CDT, 59, Spinal stenosis, lumbar region without neurogenic claudication Radiculopathy, lumbar region Segmental and somatic dysfunction of lumbar region ? Chiropractic Manipulative Tx Spinal 3-4 Regions [id number]; 08/15/2024 13:27:00 CDT, Spinal stenosis, lumbar region without neurogenic claudication Radiculopathy, lumbar region Segmental and somatic dysfunction of lumbar region Segmental and somatic dysfunction of thoracic region Segmental and somatic... D iagnosis: 2 . S ryne stenosis, lumbar region without neurogenic claudication Comment: Ordered: Manual Therapy Tqs 1/> Regions Each 15 Minutes [id number]; 08/15/2024 13:27:00 CDT, 59, Spinal stenosis, lumbar region without neurogenic claudication Radiculopathy, lumbar region Segmental and somatic dysfunction of lumbar region ? Chiropractic Manipulative Tx Spinal 3-4 Regions [id number]; 08/15/2024 13:27:00 CDT, Spinal stenosis, lumbar region without neurogenic claudication Radiculopathy, lumbar region Segmental and somatic dysfunction of lumbar region Segmental and somatic dysfunction of thoracic region Segmental and somatic... D iagnosis: 3 . S egmental and somatic dysfunction of lumbar region Comment: Ordered: Manual Therapy Tqs 1/> Regions Each 15 Minutes [id number]; 08/15/2024 13:27:00 CDT, 59, Spinal stenosis, lumbar region without neurogenic claudication Radiculopathy, lumbar region Segmental and somatic dysfunction of lumbar region ? Chiropractic Manipulative Tx Spinal 3-4 Regions [id number]; 08/15/2024 13:27:00 CDT, Spinal stenosis, lumbar region without neurogenic claudication Radiculopathy, lumbar region Segmental and somatic dysfunction of lumbar region Segmental and somatic dysfunction of thoracic region Segmental and somatic... D iagnosis: 4 . S egmental and somatic dysfunction of cervical region Comment: Ordered: Chiropractic Manipulative Tx Spinal 3-4 Regions [id number]; 08/15/2024 13:27:00 CDT, Spinal stenosis, lumbar region without neurogenic claudication Radiculopathy, lumbar region Segmental and somatic dysfunction of lumbar region Segmental and somatic dysfunction of thoracic region Segmental and somatic... D iagnosis: 5 . S egmental and somatic dysfunction of thoracic region Comment: Ordered: Chiropractic Manipulative Tx Spinal 3-4 Regions [id number]; 08/15/2024 13:27:00 CDT, Spinal stenosis, lumbar region [...] [facility] Chiropractic Physician 375 Operational Medical Readiness [facility] Talib [facility] Main Line DSN/Comm: [phone] / [phone] 08/15/24 13:24:40 Extracted from:Title: FTR - Low back pain Author: BINU LIN DC Date: 08/08/24 D iagnosis: 1 . R adiculopathy, lumbar region Comment: Ordered: Chiropractic Manipulative Tx Spinal 3-4 Regions [id number]; 08/08/2024 13:37:00 CDT, Radiculopathy, lumbar region Spinal stenosis, lumbar region without neurogenic claudication Pain in left hip Segmental and somatic dysfunction of lumbar region Segmental and somatic dysfunction of thoracic region Seg... D iagnosis: 2 . S ryne stenosis, lumbar region without neurogenic claudication Comment: Ordered: Manual Therapy Tqs 1/> Regions Each 15 Minutes [id number]; 08/08/2024 13:37:00 CDT, 59, Spinal stenosis, lumbar region without neurogenic claudication Pain in left hip Segmental and somatic dysfunction of lumbar region ? Chiropractic Manipulative Tx Spinal 3-4 Regions [id number]; 08/08/2024 13:37:00 CDT, Radiculopathy, lumbar region Spinal stenosis, lumbar region without neurogenic claudication Pain in left hip Segmental and somatic dysfunction of lumbar region Segmental and somatic dysfunction of thoracic region Seg... D iagnosis: 3 . P ain in left hip Comment: Ordered: Manual Therapy Tqs 1/> Regions Each 15 Minutes [id number]; 08/08/2024 13:37:00 CDT, 59, Spinal stenosis, lumbar region without neurogenic claudication Pain in left hip Segmental and somatic dysfunction of lumbar region ? Chiropractic Manipulative Tx Spinal 3-4 Regions [id number]; 08/08/2024 13:37:00 CDT, Radiculopathy, lumbar region Spinal stenosis, lumbar region without neurogenic claudication Pain in left hip Segmental and somatic dysfunction of lumbar region Segmental and somatic dysfunction of thoracic region Seg... D iagnosis: 4 . S egmental and somatic dysfunction of sacral region Comment: Ordered: Chiropractic Manipulative Tx Spinal 3-4 Regions [id number]; 08/08/2024 13:37:00 CDT, Radiculopathy, lumbar region Spinal stenosis, lumbar region without neurogenic claudication Pain in left hip Segmental and somatic dysfunction of lumbar region Segmental and somatic dysfunction of thoracic region Seg... D iagnosis: 5 . S egmental and somatic dysfunction of lumbar region Comment: Ordered: Manual Therapy Tqs 1/> Regions Each 15 Minutes [id number]; 08/08/2024 13:37:00 CDT, 59, Spinal stenosis, lumbar region without neurogenic claudication Pain in left hip Segmental and somatic dysfunction of lumbar region ? Chiropractic Manipulative Tx Spinal 3-4 Regions [id number]; 08/08/2024 13:37:00 CDT, Radiculopathy, lumbar region Spinal stenosis, lumbar region without neurogenic claudication Pain in left hip Segmental and somatic dysfunction of lumbar region Segmental and somatic dysfunction of thoracic region Seg... D iagnosis: 6 . S egmental and somatic dysfunction of thoracic region Comment: Ordered: Chiropractic Manipulative Tx Spinal 3-4 Regions [id number]; 08/08/2024 13:37:00 CDT, Radiculopathy, lumbar region Spinal [...] RMSK Chiropractic Physician 375 Operational Medical Readiness [facility] Main Line DSN/Comm: [phone] / [phone] 08/08/24 13:13:15 Extracted from:Title: Referral for IDES [...] could explain the radicular pain). IAW AR [id number], Chapter 3-20h at a minimum, this SM does not meet retention criteria and should be evaluated by the IDEs program. I will submit a permanent PROFILE to the IDEs ( Morena Mcpherson upervisoAshly kay HC - w ith the s upport o f [facility] Garcia, DCCS, they h ave a greed to manage this S oldier d espite t he fact t hat he i s not in t heir catchment a abiodun) f or f urther evaluation and if qualifying, a s econd signature to initial the IDEs p rocess. 2. 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 Delmy nguyen performed multiple hospital visits including of his SM s infant who was brutally murdered. 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 ( 1 unit is 3 months long 40 hrs a week). 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 I n Feb 2023 he gained ADOS orders again and is currently serving on them. After conducting a head-to-toe physical examination and review of his medical records (JLV and LOGAN), I am concerned that he needs better documentation with regards to the followin) Bartlett h as been diagnosed with PTSD with [...] right shoulder (previously rated as DC 5203) Bartlett tore shoulder in LOD. 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 F or pain management he receives Botox injections every 2 months. 8) 20% rating for lumbar disc disease Bartlett has had many laboratory animal care veterinarian apts as well as Spinal Epidural injections [...] Tim had colitis in [address] [facility]. Initially thought to be a normal stomach bug, it went undiagnosed. A ccompanied with fevers, was placed on quarters for last 1.5 weeks of training for that summer. Ky aguero attempted to go home but was too ill to continue flight in [facility] airport. Delmy ngyuen was transported VIA ambulance to local hospital where he had CT scan and diagnosed with colitis. Delmy nguyen had 104.5 fever and the infection? j umped ship and attacked his heart 2xs. E KG confirmed 2 heart attacks. Delmy nguyen was transferred to cardiac floor then ultimately the ICU where they gave a dozen IV AB. ?Bartlett recovered but was never the same. Ky Tim feels that this reoccurred several times but went misdiagnosed several times since then. A lso, 2023 he was diagnosed again with colitis and enteritis. 12) Neck pain Ky Tim has chronic neck pain and has seen chiropractic care. R ecpankaj, Bartlett has developed resistance and intolerance to adjustments. [...] syndrome 5. C rohn disease Extracted from:Title: [facility]- Neck and anal pain Author: ANDREW [...] care for any urgent/emergent concerns or call [phone] and leave message with the clinic for any other concerns. Patient can also access [employer]Live at [email or web address] to leave message with PCM Team. A total of 20 minutes was spent on this visit reviewing previous records, counseling the patient on the listed diagnoses, reviewing/ordering tests, adjusting medications, and/or documenting the findings in this note. //SIGNED// Capt Andrew Pavon DO Manufactured Buildings Supervisor Physician, PGY-[address] [place] [address], HCOS/SGGF [facility] Talib KEYS This note was dictated using [employer] dictation software. While it was proofread for errors, there may still be grammatical and dictation errors. Extracted from:Title: FTR - Low back pain Author: BINU LIN DC Date: 07/27/24 D iagnosis: 1 . R adiculopathy, lumbar region Comment: Ordered: Manual Therapy Tqs 1/> Regions Each 15 Minutes [id number]; 07/27/2024 09:32:00 CDT, 59, Radiculopathy, lumbar region Spinal stenosis, lumbar region without neurogenic claudication Segmental and somatic dysfunction of lumbar region ? Chiropractic Manipulative Tx Spinal 3-4 Regions [id number]; 07/27/2024 09:32:00 CDT, Radiculopathy, lumbar region Spinal stenosis, lumbar region without neurogenic claudication Segmental and somatic dysfunction of lumbar region Segmental and somatic dysfunction of thoracic region Segmental and somatic... D iagnosis: 2 . S ryne stenosis, lumbar region without neurogenic claudication Comment: Ordered: Manual Therapy Tqs 1/> Regions Each 15 Minutes [id number]; 07/27/2024 09:32:00 CDT, 59, Radiculopathy, lumbar region Spinal stenosis, lumbar region without neurogenic claudication Segmental and somatic dysfunction of lumbar region ? Chiropractic Manipulative Tx Spinal 3-4 Regions [id number]; 07/27/2024 09:32:00 CDT, Radiculopathy, lumbar region Spinal stenosis, lumbar region without neurogenic claudication Segmental and somatic dysfunction of lumbar region Segmental and somatic dysfunction of thoracic region Segmental and somatic... D iagnosis: 3 . S egmental and somatic dysfunction of lumbar region Comment: Ordered: Manual Therapy Tqs 1/> Regions Each 15 Minutes [id number]; 07/27/2024 09:32:00 CDT, 59, Radiculopathy, lumbar region Spinal stenosis, lumbar region without neurogenic claudication Segmental and somatic dysfunction of lumbar region ? Chiropractic Manipulative Tx Spinal 3-4 Regions [id number]; 07/27/2024 09:32:00 CDT, Radiculopathy, lumbar region Spinal stenosis, lumbar region without neurogenic claudication Segmental and somatic dysfunction of lumbar region Segmental and somatic dysfunction of thoracic region Segmental and somatic... D iagnosis: 4 . S egmental and somatic dysfunction of thoracic region Comment: Ordered: Chiropractic Manipulative Tx Spinal 3-4 Regions [id number]; 07/27/2024 09:32:00 CDT, Radiculopathy, lumbar region Spinal stenosis, lumbar region without neurogenic claudication Segmental and somatic dysfunction of lumbar region Segmental and somatic dysfunction of thoracic region Segmental and somatic... D iagnosis: 5 . S egmental and somatic dysfunction of cervical region Comment: Ordered: Chiropractic Manipulative Tx Spinal 3-4 Regions [id number]; 07/27/2024 09:32:00 CDT, Radiculopathy, lumbar region Spinal [...] Physician 375 Operational Medical Readiness [facility] Main Line DSN/Comm: [phone] / [phone] 07/27/24 09:39:34 Extracted from:Title: [facility] MARVIN/OME Author: LORRAINE NAQVI PA Date: [...] and agreement. LORRAINE NAQVI, 1st Lt, PA-C [facility] [place] [address] Extracted from:Title: [facility] LBP Author: ERIK VERA, DO Date: [...] Duration: 5 days, First Dose: 06/01/2024 13:00:00 COMPRESSOR STATION ENGINEER, Stop Date: 06/06/2024 12:59:00 COMPRESSOR STATION ENGINEER, 06/01/2024 12:02:00 COMPRESSOR STATION ENGINEER Orders: ketorolac(Toradol 15 mg/mL injectable solution), 15 mg, IntraMuscular, every 6 hr, # 1 mL, 0 total refill(s), Acute, 06/02/2024, Pharmacy: [facility] [Not filled] Capt Lynn DO, [employer], Family Physician [facility]/Owner Professional Engineer [facility] Residency Program in [address]/[place] [address] Extracted from:Title: [facility] colitis work-up Author: ERIK VERA DO [...] Reviewed MEB in progress: No IMR/ASIMS Status: [facility] Capt Lynn DO, [place], Family Physician [facility]/Owner Professional Engineer [facility] Res[facility] in [address]/[facility] [place] [id number] Extracted from:Title: [facility] Sick call - F/u Feb 16 ER visit for colitis Author: FADUMO CASTRO MD Date: 02/21/24 1. E nterocolitis [facility] Chris 48 y.o. 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 Per member GI called him back [...] Family Physician, [facility] Talib VALENTINE, [facility] cortez Mckeon DSN/Comm: [phone] / [phone] Extracted from:Title: Routine nondilated exam- MEDPROS Author: [...] per pt ADLs MANIFEST REFRACTION: OD: - 0.50-0.86v039. . . . . . 20/15 OS: pl-0.69z111. . . . . . 2 0/15 Near Add: + 1.75 20/20 Computer Rx OD: +0.50-0.06m929 OS: +1.00-0.84p088 - Discussed 2 pair requirement ([facility]). - [...] completed for patient to take to unit ([facility], etc) to update into their MEDPROS system. RTC first avail for DFE only (ok to dilate at screening), otherwise 1 year Ordered: cycloSPORINE ophthalmic(Restasis 0.05% ophthalmic emulsion), 1 drop(s), Eye-Both, every 12 hr, # 60 EA, 11 total refill(s), Maintenance, 1 drop(s) Eye-Both every 12 hr, Pharmacy: [facility] [Not filled] Diagnosis: 1 . K eratoconjunctivitis sicca Comment: Ordered: Restasis 0.05% ophthalmic emulsion; 1 drop(s), Eye-Both, every 12 hr, # 60 EA, 11 total refill(s), Maintenance, 1 drop(s) Eye-Both every 12 hr, Pharmacy: [facility] [Not filled] ? Ophthalmological Medical Xm&WeVideoal Go Dishe New Pt > Vst [id number]; 02/07/2024 14:58:00 CDT ? Fitting Spectacles Xcpt Aphakia Monofocal [id number]; 02/07/2024 14:58:00 CDT ? Determination Refractive State [id number]; 02/07/2024 14:58:00 CDT D iagnosis: 2 . P resbyopia Comment: Ordered: Restasis 0.05% ophthalmic emulsion; 1 drop(s), Eye-Both, every 12 hr, # 60 EA, 11 total refill(s), Maintenance, 1 drop(s) Eye-Both every 12 hr, Pharmacy: [facility] [Not filled] ? Ophthalmological Medical Xm&Eval Compre New Pt > Vst [id number]; 02/07/2024 14:58:00 CDT ? Fitting Spectacles Xcpt Aphakia Monofocal [id number]; 02/07/2024 14:58:00 CDT ? Determination Refractive State [id number]; 02/07/2024 14:58:00 CDT End of Orders Extracted [...] O rdered: Fundus Photography w/Interpretation + Report [id number]; 08/19/2022 08:44:00 EDT ? Ophthalmological Medical [place] [id number]; 08/19/2022 08:44:00 EDT End of Orders Future Appointments Appointment Date: 11/28/2024 01:00:00 PM Scheduled Provider: BINU LIN DC Location: [address] [place] [address] Appointment Type: CHIRO FTR Appointment Date: 12/04/2024 08:00:00 AM Scheduled Provider: TANA LIN, PhD, Psychology Location: [id number] Appointment Type: BH FTR Appointment Date: 12/06/2024 12:40:00 PM Scheduled Provider: APRIL SELBY PA, Family Medicine Location: [id number] Appointment Type: ROSARIO FTR Appointment Date: 12/07/2024 03:00:00 PM Scheduled Provider: BINU LIN DC Location: [facility] Appointment Type: CHIRO FTR Future Scheduled TestsRadiologyXR Spine Cervical 4 or 5 Views 07/31/24XR Spine Thoracic 4+ Views 07/31/24 11/23/2024 Unknown Organization Advance Directives List of completed, amended, or rescinded Advance Directives on record at Department of [facility] facilities. An actual copy of the Directive is not included. Date Advance Directive Provider Source 12/21/2018 ADVANCE DIRECTIVE KELLY LIRA [facility], VISN 15 03/11/2017 ADVANCE DIRECTIVE LYNN PADGETT II [facility] Functional Status Combined list of recent functional and cognitive assessments recorded at Department of Defense and Veterans Affairs (VA).LA Functional [place] Measurement (FIM) Scale: 1 = Total Assistance (Subject = 0% +), 2 = Maximal Assistance (Subject = 25% +), 3 = Moderate Assistance (Subject = 50% +), 4 = Minimal Assistance (Subject = 75% +), 5 = Supervision, 6 = Modified [place] (Device), 7 = Complete [place] (Timely, Safely). Assessment Date/Time Source Assessment Type Assessment Skill Assessment Score Assessment Details FUNCTIONAL 5Home Dietary Supplements Captured Yes
--- NOTE | 2024-11-23 00:40 | ED_ITS ---
HPI - Back Pain/Injury General Chief Complaint: Back Pain/Injury Stated Complaint: back pain Time Seen by Provider: 11/23/24 00:20 History of Present Illness HPI Narrative: 48-year-old [employer] presenting to the emergency depart with midline back pain. States that chronic back pain since 2004 from [place] injuries. He had a L4-L5 and S1 herniated disc with bulging disc. Underwent therapeutic treatments with conservative management but has never had surgical interventions. He states that he had an increase in his back pain yesterday when he tried to stand up too quickly. He has been having difficulty walking since secondary to the pain. Endorses some chronic paresthesias in his left hip that were left over from a injection for chronic pain that went wrong. Endorses difficulty moving his extremity secondary to pain. Uncomfortable but not any acute distress. No systemic symptoms such as fever, chills, urinary incontinence, bladder incontinence, urinary tension. Was otherwise in his normal state of health. Has never sought neurosurgical evaluation or treatment but is interested in getting one. Related Data Home Medications ?Medication ?Instructions ?Recorded ?Confirmed ?Last Taken ?Type esomeprazole magnesium 40 mg 40 mg PO DAILY 06/29/24 08/23/24 Unknown History capsule,delayed release (Nexium) ivabradine 5 mg tablet (Corlanor) mg 10/14/24 Unknown History meloxicam 15 mg tablet mg 10/14/24 Unknown History Allergies Allergy/AdvReac Type Severity Reaction Status Date / Time methylprednisolone AdvReac Agitated Verified 11/22/24 20:31 propranolol AdvReac Dizziness Verified 11/22/24 20:31 pseudoephedrine (From AdvReac Hypertensio Verified 11/22/24 20:31 Sudafed) n Review of Systems 2 Review of Systems: As reviewed above in HPI [facility] Past Medical History Medical History Shrimp allergy Peanut allergy Wheat allergy GERD (gastroesophageal reflux disease) MARVIN (iron deficiency anemia) Social History Social History Smoking status: Unknown if ever smoked Exam 2 Narrative: GENERAL: [Well-appearing, well-nourished, and in no acute distress.] HEAD: [Normocephalic, atraumatic.] EYES: [PERRLA and EOMI.] ENT: Nares clear, no rhinorrhea or epistaxis. Mucous membranes moist. NECK: Supple. CHEST: [Clear to auscultation. No respiratory distress.] HEART: [Regular rate and rhythm]. No murmur heard. [Normal peripheral pulses.] ABDOMEN: [Soft, nondistended], [nontender], [No rigidity or guarding] EXTREMITIES: Midline tenderness to palpation on the L4 through S1 region without any step-offs, deformities, fluctuance or overlying skin DM a/abscess formation. Distal neuro vasculature appears intact, EHL and FHL with good strength but elicits pain with movement and positive straight leg raise bilaterally. SKIN: Warm, dry, no rash. NEURO: [No focal deficits]. Alert and oriented [x3.] PSYCH: [Normal mood and affect.] Course Vital Signs Vital signs: Vital Signs Temperature 37.0 C 11/22/24 20:25 Pulse Rate 58 L 11/22/24 20:25 Respiratory Rate 14 11/22/24 20:25 Blood Pressure 125/85 11/22/24 20:25 Pulse Oximetry 100 11/22/24 20:25 Oxygen Delivery Room Air 11/22/24 20:25 Temperature 37.0 C 11/22/24 20:25 Pulse Rate 58 L 11/22/24 23:59 Respiratory Rate 15 11/22/24 23:59 Blood Pressure 123/83 11/22/24 23:59 Pulse Oximetry 100 11/22/24 23:59 Oxygen Delivery Room Air 11/22/24 20:25 MDM - Back Pain/Injury MDM Narrative Medical decision making narrative: 48-year-old [employer] presenting to the emergency depart with midline back pain. States that chronic back pain since 2004 from [place] injuries. He had a L4-L5 and S1 herniated disc with bulging disc. Underwent therapeutic treatments with conservative management but has never had surgical interventions. He states that he had an increase in his back pain yesterday when he tried to stand up too quickly. He has been having difficulty walking since secondary to the pain. Endorses some chronic paresthesias in his left hip that were left over from a injection for chronic pain that went wrong. Endorses difficulty moving his extremity secondary to pain. Uncomfortable but not any acute distress. No systemic symptoms such as fever, chills, urinary incontinence, bladder incontinence, urinary tension. Was otherwise in his normal state of health. Has never sought neurosurgical evaluation or treatment but is interested in getting one. Midline tenderness to palpation on the L4 through S1 region without any step- offs, deformities, fluctuance or overlying skin DM a/abscess formation. Distal neuro vasculature appears intact, EHL and FHL with good strength but elicits pain with movement and positive straight leg raise bilaterally. Patient does not have any red flag signs or symptoms of cauda equina or conus medullaris based on exam or historical features. Likely exacerbation of chronic musculoskeletal back pain rather than acute injury or infectious process. Inflammatory markers and basic laboratory studies were ordered he was treated with intravenous Decadron and Dilaudid as well as getting a CT scan without contrast of his lumbar region for further evaluation. CT scan shows no canal stenosis, overall unremarkable CT scan. Laboratory studies reassuring with no significant leukocytosis or any inflammatory marker elevations. Patient re-evaluated after interventions including Decadron dilaudid was ambulatory without any difficulty. [place] improved. Patient is safe for discharge home at this time will be sent home with a 5 day course of Toradol and prednisone and follow-up instructions with his PCP and referred to Neurosurgery. Medical Records Attestation: I reviewed the patient's medical records. Lab Data Attestation: I reviewed the patient's lab results. 11/23/24 01:04 11/23/24 01:05 Labs: Lab Results 11/23/24 11/23/24 Range/Units 01:04 01:05 WBC 6.2 (4.5-10.0) K/mm3 RBC 4.86 (4.6-6.20) M/mm3 Hgb 12.4 L (14.0-18.0) g/dL Hct 39.3 L (42.0-52.0) % MCV 80.9 (80-100) fl MCH 25.5 L (26-34) pg MCHC 31.6 L (32-36) g/dl RDW 17.6 H (11.5-14.5) % Plt Count 222 (150-375) k/mm3 MPV 9.5 (7.4-10.4) fl Immature Gran % (Auto) 0.3 (0-0.5) % Neut % (Auto) 56.6 (45.5-73.1) % Lymph % (Auto) 33.7 (18.3-44.2) % [place] % (Auto) 7.4 (2.6-8.5) % Eos % (Auto) 1.5 (0-4.4) % Baso % (Auto) 0.5 (0.2-1.2) % Lymph # (Auto) 2.09 (0.9-3.2) K/mm3 [place] # (Auto) 0.5 (0.1-0.6) K/mm3 Eos # (Auto) 0.1 (0-0.3) K/mm3 Baso # (Auto) 0.0 (0.0-0.1) K/mm3 Abs Immat Gran (auto) 0.02 (0.00-0.031) K/mm3 Absolute Neuts (auto) 3.5 (1.3-6.7) K/mm3 Absolute Nucleated RBC 0.000 (0.0-0.012) K/mm3 Nucleated RBC % 0.0 (0.0-0.2) % ESR Pending Sodium Pending Potassium Pending Chloride Pending Carbon Dioxide Pending Anion Gap Pending BUN Pending Creatinine Pending Estim Creat Clear Calc Pending Estimated GFR Pending Glucose Pending Calcium Pending C-Reactive Protein Pending Imaging Data Attestation: I personally reviewed and interpreted this imaging study as follows: My impression: No acute osseous abnormality Discharge Plan Discharge Clinical Impression: Chronic lumbar radiculopathy Patient Disposition: Home Condition: Stable Instructions: Antibiotic Form, Acute Low Back Pain (ED), Lumbar Radiculopathy (ED), Lower Back Exercises (ED) Additional Instructions: Follow-up with Neurosurgery, return emergent concerns. Discharged with 5 days of Toradol and prednisone. Patient Language: Hebrew Prescriptions: No Action meloxicam 15 mg tablet ivabradine [Corlanor] 5 mg tablet triamcinolone acetonide 0.1 % cream 1 applic topical BID PRN (Reason: insect bite) Qty: 30 0RF esomeprazole magnesium [Nexium] 40 mg capsule,delayed release(DR/EC) 40 mg PO DAILY Follow-up/Referrals: [place], [Primary Care Provider] -
[2024-11-23] MEDS: dexAMETHasone SOD PHOS INJ 10 MG/ML 1 ML VIAL IV PUSH (01:01)
[2024-11-23] MEDS: HYDROmorphone HCL INJ (*CRX) 1 MG/ML SYR IV PUSH (01:01)
[2024-11-23 01:09] LABS: Hematocrit 39.3 % (42.0-52.0); Hemoglobin 12.4 g/dL (14.0-18.0); Immature Granulocyte Percent A 0.3 % (0-0.5); Lymphocytes Absolute Auto 2.09 K/mm3 (0.9-3.2); Mean Corpuscular HGB Conc 31.6 g/dl (32-36); Mean Corpuscular Hemoglobin 25.5 pg (26-34); Mean Corpuscular Volume 80.9 fl (80-100); Nucleated Red Blood Cells Absolute Auto 0.000 K/mm3 (0.0-0.012); Nucleated Red Blood Cells Perc 0.0 % (0.0-0.2); Platelet Count Result 222 k/mm3 (150-375); Red Blood Count 4.86 M/mm3 (4.6-6.20); White Blood Count 6.2 K/mm3 (4.5-10.0)
[2024-11-23 01:42] VITALS: BP 123/78; PULSE 66; RESP 17; O2SAT 96
[2024-11-23 02:58] VITALS: BP 112/73; PULSE 65; RESP 14; O2SAT 98
[2024-11-23 04:10] VITALS: BP 117/79; PULSE 65; RESP 17; O2SAT 100
[2024-11-23 05:32] LABS: Anion Gap 7 mmol/L (4-12); Blood Urea Nitrogen 14 mg/dL (9-20); CRP < 0.5 mg/dL (<1.0); Calcium 9.4 mg/dL (8.4-10.2); Carbon Dioxide 29 mmol/L (22-30); Chloride 101 mmol/L (98-107); Estimated CRCL calculation 90 ml/min; Estimated Glomerular Filt Rate > 60; Glucose 99 mg/dL (65-110); Potassium 3.7 mmol/L (3.4-5.0); Sodium 137 mmol/L (137-145)
== END 2024-11-23 04:10 | disposition home or self-care (01) ==
PROVIDERS: Emergency Provider Student in an Organized Health Care Education/Training Program
DX: M54.16 Radiculopathy, lumbar region (principal); K21.9 Gastro-esophageal reflux disease without esophagitis; D50.9 Iron deficiency anemia, unspecified
CPT/HCPCS: 36415; 72131; 80048; 85025; 85652; 86140; 96374; 96375; 99284; J1100; J1171; J2405

== ENCOUNTER 2025-01-08 13:11 | Emergency (ER) | payer OTHER, SELFPAY ==
--- OUTSIDE RECORDS SUMMARY | 2024-01-23 07:55 | XMS_ITS ---
Author Organization [facility] Billing Info Address [address] [place] [address] [place] [address] Care Team Providers Care Window Display Designer Name Role Phone GISSEL DOCEKRY MD Primary Care Provider Unavaila GISSEL Castillo Unavailable [phone] REASON FOR VISIT Transition of care-ER Encounters Encounter Location Date Provider Diagnosis [id number] [facility] [address] [place], [place] [id number] 01/23/2024 GISSEL DOCKERY Plan Of Treatment No Information Progress Notes * Ronny CAMARGO WDOB:1975 ( 48 yo M)Acc No.[id number]:01/23/2024 Patient: Ronny MAHER :1975 A ge:48 Y S ex:Male Address:[facility] [address] [place], [address] Subjective: * Chief Complaints: * T ransition of care-ER * HPI: I NTERIM-HISTORY: Outpatient Visit T ype of Outpatient Facility: [facility] D maximino Mark santhosh of facility: [facility] ED D ate of Discharge: 1 1 st Follow-up Attempt: 1 D etails of 1st Follow-up Attempt: l eft message 2 nd Follow-up Attempt: 1 D etails of 2nd Follow-up Attempt: p ortal message Post Discharge Services D ischarge Meds: S ee Notes: PROMETHAZINE (PHENERGAN) 25 MG PO Q6H PRN PRN NauseaPROMETHAZINE (PHENERGAN) 25 MG PO Q6H PRN PRN Nausea #30 TAB D ischarge Medications Reconciled on: 1 P ending Diagnostic Tests/Treatments: N one P ending Consults and Follow-up: S ee Notes: Gissel Dockery MD H ome Health Needs: N one H ome Physical Therapy Needs: N one H ome Occupational Therapy Needs: N one D urable Medical Equipment Needs: N one C ommunity Resource Needs: N one A ctivity Level: T olerated D iet: R egular E ducation Needed: S ee Notes: Self-Care for HeadachesAdditional InstructionsPush clear liquids. At the onset of headache in the future you can takePhenergan and Benadryl together and rest. You can use Zofran with this as well.However if your headache worsens then return immediately for re-evaluation. Medical Decision Making C omplexity Level: L ow * Medical History: * Surgical History: * Hospitalization/Major Diagno stic Procedure: * Medications: Objective: * Vitals: * Physical Examination: Assessment: Plan: * Treatment: * Procedure Codes: * true * Date: Generated for Mechelle cunningham/Justino/eTransmitting on: 0 01/08/2025 01:25 PM CDT History and Physical Notes * HPI (History of Present Illness) Category Sub-Category Detail Notes Category Not es INTERIM-HISTORY Outpatient Visit Type of Outpati ent Facility:: Emergency Room Division: [facility] Name of facility:: [facility] [place] [facility] Date of Discharge:: 01/18/2024 1st Follow-up Attempt:: 01/23/2024 Details of 1st Follow-up Attempt:: left message 2nd Follow-up Attempt:: 01/24/2024 Details of 2nd Follow-up Attempt:: sugey castillo message Post Discharge Services Discharge Meds:: See Notes: PROMETHAZINE (PHENERGAN) 25 MG PO Q6H PRN PRN Nausea PROMETHAZINE (PHENERGAN) 25 MG PO Q6H PRN PRN Nausea #30 TAB Discharge Medications Reconc iled on:: 01/23/2024 Pending Diagnostic Tests/Treatments:: No ne Pending Consults and Follow-up:: See Not es: Gissel Dockery MD Home Health Needs:: None Home Physical Therapy Needs:: None Home Occupational Therapy Needs:: None Durable Medical Equipment Needs:: None Community Resource Needs:: None Activity Level:: Tolerated Diet:: Regular Education Needed:: See Notes: Self-Care for Headaches Additional Instructions Push clear liquids. At the onset of headache in the future you can take Phenergan and Benadryl together and rest. You can use Zofran with this as well. However if your headache worsens then return immediately for re-evaluation. Medical Decision Making Complexity Level:: Low
--- NOTE | ~2025-01-08 | CT_ITS ---
EXAMINATION: CT abdomen pelvis w con DATE: 01/08/2025 15:29 INDICATION: Abdominal pain TECHNIQUE: Computed tomography (CT) of the abdomen and pelvis was performed with 100 mL Omnipaque-350 intravenous contrast. Automated exposure control and iterative reconstruction technique were employed. The dose-length product was 1645.13 mGy-cm. COMPARISON: 03/16/2024 FINDINGS: Lung bases are clear. Heart size is normal. No pericardial or pleural effusion. Cholecystectomy clips the gallbladder fossa. Liver, spleen, pancreas, bilateral adrenal glands and kidneys are normal. Bowels including the appendix are normal. Bladder is normal. No free intraperitoneal gas or fluid. No pathologically enlarged abdominal or pelvic lymphadenopathy. Moderate lumbar spondylosis. IMPRESSION: 1. No acute intra-abdominal/pelvic process. Reviewed, dictated and finalized at location A.
[2025-01-08 13:17] VITALS: BP 127/77; PULSE 83; RESP 16; TEMP 36.4; O2SAT 98
--- OUTSIDE RECORDS SUMMARY | 2025-01-08 13:26 | XMS_ITS | Clinical Summary ---
Author Organization [facility] Address [address] [place] [address] Care Team Providers Care Controlled Atmospheric Furnace Brazer Name Role Phone Erik Goncalves DO Primary Care Provider [phone] Allergies Active Allergy Reactions Criticality Noted Date [...] - 19+ 3-dose series) 1996 COVID-19 Vaccine (1 - 2023-2 5 season) 2024 Meningococcal B Vaccine Aged Out No l [...] patient's age to complete this topic Insurance [facility] Care Teams Controlled Atmospheric Furnace Brazer Relationship Specialty Start Date End Date Erik Goncalves DO [address] [address] PCP - General FAMILY PRACTICE 06/21/24
--- OUTSIDE RECORDS SUMMARY | 2025-01-08 13:26 | XMS_ITS | Patient Health Record ---
Author Organization [facility] Billing Info Address [address] [place] [address] [place] [address] Care Team Providers Care Spring Crater Name Role Phone JAYLA DOCKERY MD Primary Care Provider JAYLA Jacob Unavailable [phone] Allergies Allergen (clinical drug ingredient) Drug/Non Drug [...] Problem Status W/U Status Risk Notes Problem 42574822 Hereditary hemochromatosis (E83.110) Active confirmed Problem 65515676 Palpitations (R00.2) Active confirmed He is minimally symptomatic. I suspect when he discontinued his beta tish he was having a rebound effect and I told him that if he wanted to try to wean off of it again we can try more slowly. But he also takes for migraine headache so I left him on it. Problem 683327457 Nocturia (R35.1) Active confirmed Problem 7269922921918 Benign prostatic hyperplasia with lower urinary tract symptoms (N40.1) Active confirmed Problem 511054347 Seasonal allergies (J30.2) Active confirmed Problem 72356051 Lumbar degenerative disc disease (M51.36) Active confirmed Problem 392617927 Elevated hemoglobin A1c (R73.09) Active confirmed Problem 320858082 GERD without esophagitis (K21.9) Active confirmed Problem 004695712 Abnormal ECG (R94.31) Active confirmed His resting ECG has poor R-wave progression, I ordered an echocardiogram to assess LV function but he reports no angina Problem 30719365 Anal fissure (K60.2) Active confirmed Problem 703014666 Hepatic steatosis (K76.0) Active confirmed Problem 6219229 SVT (supraventricul ar tachycardia) (I47.1) Active confirmed He is status post RFA for likely PSVT although records are not available. I ordered an echocardiogram and assess LV function. This is normal we will continue with his current treatment plan of beta tish. 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) Active confirmed Problem 410723303 Schatzki's ring of distal esophagus (K22.2) Active confirmed Problem 332871654 Elevated LDL cholesterol level (E78.00) Active confirmed Problem 918002585 Neuropathic pain of right ankle (M79.2) Active confirmed Encounters Encounter Location Date Provider Diagnosis [id number] [facility] [address] [place] [id number] 01/23/2024 JAYLA SARKIS Plan Of Treatment Pending Test Test Name Order Date CT- [place] ([address])([facility]) 04/01/2022 US- ABDOMEN LIMITED (24265)([facility]) 0 09/28/2021 TSH ([id number]) 09/11/2019 CBC With Differential/Platelet ([id number]) 09/11/2019 Vitamin D, 25-Hydroxy ([id number]) 2019 Lipid Panel ([id number]) 09/11/2019 Lipid Panel ([id number]) 06/08/2019 Comp. Metabolic Panel (14) ([id number]) 0 09/11/2019 Fe + TIBC + Bereket + Transf (-[id number]) 09/11/2019 XRAY- L SPINE COMPLETE W/BENDING (94372) ([facility]UM[facility])DUP 09/11/2019 Future Test Test Name Order Date Hemoglobin A1c ([id number]) 02/23/2023 TSH ([id number]) 02/23/2023 CBC With Differential/Platelet ([id number]) 02/23/2023 Lipid Panel w/ Chol/HDL Ratio ([id number] ) 02/23/2023 Comp. Metabolic Panel (14) ([id number]) 1 04/25/2022 Insurance Providers Payer Name Payer Address Payer Phone Subscriber Number Group Number Insured Name Patient Relationship to Insured Coverage Start Date Coverage End Date [facility] PR[facility] TO [id number] [address] [place], [place] [id number] Ronny Henderson Self - patient is the [...] reflux Hereditary Hemochromotosis Surgical History Surgery Date(Month/Year) cholecystectomy 2002 right knee meniscus removed 2014 right shoulder surgery 03/2017 plantar facitis L foot 2010 cardiac oblation 2007 colonoscopy 2020 Hospitalization History Reason Date(Month/Year) see surgical history colitis 2007
--- OUTSIDE RECORDS SUMMARY | 2025-01-08 13:26 | XMS_ITS | Clinical Summary ---
Author Organization [facility] Address [address] [place] [address] Care Team Providers Care Continuous Mining Machine Lode Miner Name Role Phone Zachary Kapoor MD Unavailable Erik Goncalves DO Unavailable Erik Goncalves DO Primary Care Provider [phone] Allergies Active Allergy Reactions Criticality Noted Date [...] left hip Colitis Overview (04/26/2024): after colonoscopy Surgical History Surgery Date Site/Laterality Comments CHOLECYSTECTOMY ABLATION SHOULDER ARTHROPLASTY Right Medical History Medical History Date Comments Plantar lipomatosis, facial dysmorphism, and developmental delay syndrome Other bursal cyst, left hip Colitis after colonoscop y 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 [place] (myocardial infarction) (HCC) Anemia Family History Medical [...] Visit/Exam 18-64 12/20/1995 Covid-19 Vaccine (3 - 2024-2 6 season) 2024 12/05/2020, 11/14/2020 Influenza Vaccine (#1) 2024 Pneumococcal vaccine <65 Aged Out No longer eligible based on patient's age to complete this topic Insurance [facility] Care Teams Continuous Mining Machine Lode Miner Relationship Specialty Start Date End Date Erik Goncalves DO [address] [place] [address] PCP - General Family Medicine 05/31/24 Zachary Kapoor MD [facility] [address] Consulting Physician Pain Management 09/23/23 Erik Goncalves DO [facility], [address] [address] Family Medicine 09/30/23
--- OUTSIDE RECORDS SUMMARY | 2025-01-08 13:26 | XMS_ITS | Patient Health Record ---
Author Organization [facility] Address [address] [place] [address] Care Team Providers Care Abrasive Wheel Molder Name Role Phone Undecided, Undecided Primary Care Provider Unava Anthony Camarena Unavailable [phone] Zach Bnyum MD Unavailable Unavailable Allergies No Known Allergies [...] W/U Status Risk Notes Problem Chronic pain (55470596) Other chronic pain (G89.29) Active confirmed Problem Injury of left peroneal nerve, subsequent encounter (S84.12XD) Active confirmed Problem Complex regional pain syndrome, type II, lower limb (123440183) Complex regional pain syndrome type 2 of left lower extremity (G57.72) Active confirmed Plan Of Treatment No Information Insurance Providers Payer Name Payer Address Payer Phone Subscriber Number Group Number Insured Name Patient Relationship to Insured Coverage Start Date Coverage End Date [facility] [address] [place] [phone] [id number] Ronny Henderson Self - patient is the insured Medical (General) History Medical History History ICD Code Back pain; Labral Tear; Plantar fasciitis; Surgical History Surgery Date(Month/Year) Back surgery; 01/08/2019 Cholecstectomy; 2002 Knee surgery; 01/08/2019 left foot; 01/08/2019 Shoulder surgery; 01/08/2019 Hospitalization History Reason Date(Month/Year) see surgical history
--- OUTSIDE RECORDS SUMMARY | 2025-01-08 13:26 | XMS_ITS | Patient Health Record ---
Author Organization [facility] Address [address] [place] [address] Care Team Providers Care Underwriting Operations Manager Name Role Phone Nette Blanco APRN Primary Care Provider U cristiana Hart MD, Matthew Unavailable [phone] Allergies No Known Allergies Reason For Referral No Information Social History Tobacco Use: Social History Observation Description Date Details (start date - stop date) Never Smoker NA - NA Tobacco Use/Smoking Question Answer Notes Tobacco use: nonsmoker Problems Problem Type SNOMED Code ICD Code Onset Dates Problem Status W/U Status Risk Notes Problem Disorder of musculoskeletal system (540852) Weakness of left lower extremity (R29.898) Active confirmed Problem Skin sensation disturbance (67258037) Numbness of left foot (R20.8) Active confirmed Problem Edema (130293318) Edema of left foot (R60.0) Active confirmed Plan Of Treatment No Information Insurance Providers Payer Name Payer Address Payer Phone Subscriber Number Group Number Insured Name Patient Relationship to Insured Coverage Start Date Coverage End Date [facility] [address] [place] [address] [id number] ANDREW CAMARGO Self - patient is the insured Medical (General) History Medical History History ICD Code _: migraine headaches
--- OUTSIDE RECORDS SUMMARY | 2025-01-08 13:26 | XMS_ITS | Encounter Summary ---
Author Organization [facility] Address [address] [place] [address] Care Team Providers Care Financial Project Manager Name Role Phone [facility] Primary Care Provider [phone] Zachary Kapoor MD Unavailable Erik Goncalves DO Unavailable Erik Goncalves DO Primary Care Provider [phone] Encounter Details Date Type Department Care Team (Late st Contact Info) Description 05/07/2024 Telephone [facility] [address] [address] Sirena Alejandre RN Social History [...] on filedocumented in this encounter Care Teams Financial Project Manager Relationship Specialty Start Date End Date [facility], [facility] [address] [place], [place] [address] PCP - General 09/14/23 05/30/24 Erik Goncalves DO [address] [place] [address] PCP - General Family Medicine 05/31/24 Zachary Kapoor MD [address] [facility], [address] [address] Consulting Physician Pain Management 09/23/23 Erik Goncalves DO [address] [facility], [address] [address] Family Medicine 09/30/23 documented as of this encounter
--- OUTSIDE RECORDS SUMMARY | 2025-01-08 13:26 | XMS_ITS | Patient Health Record ---
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) Idiopathic neuropathy (G60.9) Active confirmed Problem Degeneration of lumbar intervertebral disc (50976836) Disc degeneration, lumbar (M51.36) Active confirmed Plan Of Treatment No Information Insurance Providers Payer Name Payer Address Payer Phone Subscriber Number Group Number Insured Name Patient Relationship to Insured Coverage Start Date Coverage End Date [employer]IME[employer] FOSTER [address] [place] [address] [id number] Ronny Henderson Self - patient is the insured Medical (General) History Medical History History ICD Code Abnormal heart beat Heartburn/Acid Reflux(GERD) depression Surgical History Surgery Date(Month/Year) gallbladder Heart Surgery
[2025-01-08 14:31] VITALS: BP 117/83; PULSE 81; RESP 16; TEMP 36.8; O2SAT 100
--- OUTSIDE RECORDS SUMMARY | 2025-01-08 14:43 | XMS_ITS | Encounter Summary ---
Author Organization [facility] Address [address] [place] [address] Care Team Providers Care Chief Substation Operator Name Role Phone [facility] Primary Care Provider [phone] Zachary Kapoor MD Unavailable Erik Goncalves DO Unavailable Erik Goncalves DO Primary Care Provider [phone] Encounter Details Date Type Department Care Team (Late st Contact Info) Description 05/07/2024 Telephone [facility] [address] [address] Sirena Alejandre RN Social History [...] on filedocumented in this encounter Care Teams Chief Substation Operator Relationship Specialty Start Date End Date [facility], [facility] [address] [place], [place] [address] PCP - General 09/14/23 05/30/24 Erik Goncalves DO [address] [place] [address] PCP - General Family Medicine 05/31/24 Zachary Kapoor MD [address] [facility], [address] [address] Consulting Physician Pain Management 09/23/23 Erik Goncalves DO [address] [facility], [address] [address] Family Medicine 09/30/23 documented as of this encounter
--- OUTSIDE RECORDS SUMMARY | 2025-01-08 14:43 | XMS_ITS | Clinical Summary ---
Author Organization [facility] [place] Address [address] [place] [address] Care Team Providers Care Livestock Buyer Name Role Phone Zachary Kapoor MD Unavailable Erik Goncalves DO Unavailable Erik Goncalves DO Primary Care Provider [phone] Allergies Active Allergy Reactions Criticality Noted Date [...] after colonoscop y 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 [place] (myocardial infarction) (HCC) Anemia Family History Medical [...] patient's age to complete this topic Insurance [facility] Care Teams Livestock Buyer Relationship Specialty Start Date End Date Erik Goncalves DO [address] [place] [address] PCP - General Family Medicine 05/31/24 Zachary Kapoor MD [facility] [address] Consulting Physician Pain Management 09/23/23 Erik Goncalves DO [facility]0 [facility], [address] [address] Family Medicine 09/30/23
--- OUTSIDE RECORDS SUMMARY | 2025-01-08 14:43 | XMS_ITS | Clinical Summary ---
Author Organization [facility] Address [address] [place] [address] Care Team Providers Care Automatic Lathe Setter Name Role Phone Erik Goncalves DO Primary Care Provider [phone] Allergies Active Allergy Reactions Criticality Noted Date [...] patient's age to complete this topic Insurance [facility] Care Teams Automatic Lathe Setter Relationship Specialty Start Date End Date Erik Goncalves DO [address] [address] PCP - General FAMILY PRACTICE 06/21/24
[2025-01-08 14:53] LABS: Add Urine Microscopic? NO; Appearance Urine Clear (Clear); Glucose Urine UA Negative (Negative); Hematocrit 42.9 % (42.0-52.0); Hemoglobin 13.6 g/dL (14.0-18.0); Immature Granulocyte Percent A 0.3 % (0-0.5); Leukocyte Esterase Ur Negative LEU/UL (Negative); Lymphocytes Absolute Auto 1.90 K/mm3 (0.9-3.2); Mean Corpuscular HGB Conc 31.7 g/dl (32-36); Mean Corpuscular Hemoglobin 26.3 pg (26-34); Mean Corpuscular Volume 82.8 fl (80-100); Nitrate Urine Negative (Negative); Nucleated Red Blood Cells Absolute Auto 0.000 K/mm3 (0.0-0.012); Nucleated Red Blood Cells Perc 0.0 % (0.0-0.2); Platelet Count Result 241 k/mm3 (150-375); Red Blood Count 5.18 M/mm3 (4.6-6.20); Specific Grav Ur 1.011 (1.001-1.035); White Blood Count 7.3 K/mm3 (4.5-10.0)
[2025-01-08 15:02] LABS: Alanine Aminotransferase 32 U/L (6-50); Albumin Level 4.5 g/dL (3.5-5.1); Alkaline Phosphatase 70 U/L (38-126); Anion Gap 8 mmol/L (4-12); Aspartate Amino Transferase 29 U/L (17-59); Bilirubin,Total 0.4 mg/dL (0.2-1.3); Blood Urea Nitrogen 19 mg/dL (9-20); Calcium 9.4 mg/dL (8.4-10.2); Carbon Dioxide 28 mmol/L (22-30); Chloride 101 mmol/L (98-107); Estimated CRCL calculation 85 ml/min; Estimated Glomerular Filt Rate > 60; Glucose 92 mg/dL (65-110); Lipase 78 U/L (23-300); Potassium 4.1 mmol/L (3.4-5.0); Sodium 137 mmol/L (137-145); Total Protein 7.6 g/dL (6.3-8.2)
--- NOTE | 2025-01-08 15:18 | ED.GENADULT ---
HPI - General Adult General Chief complaint: Abdominal Pain Stated complaint: colitis Time Seen by Provider: 01/08/25 14:24 History of Present Illness HPI narrative: 49-year-old male prior history of colitis presented emergency department for evaluation for worsening lower abdominal pain, nausea and bloating. Patient states he has had diarrhea stool for the last 24 hours as well. Patient does have prior history of infectious colitis and states this feels very similar. Related Data Home Medications ?Medication ?Instructions ?Recorded ?Confirmed ?Last Taken ?Type esomeprazole magnesium 40 mg 40 mg PO DAILY 06/29/24 12/12/24 Unknown History capsule,delayed release (Nexium) ivabradine 5 mg tablet (Corlanor) mg 10/14/24 12/12/24 Unknown History meloxicam 15 mg tablet mg 10/14/24 12/12/24 Unknown History Allergies Allergy/AdvReac Type Severity Reaction Status Date / Time methylprednisolone AdvReac Agitated Verified 01/08/25 13:19 propranolol AdvReac Dizziness Verified 01/08/25 13:19 pseudoephedrine (From AdvReac Hypertensio Verified 01/08/25 13:19 Sudafed) n Review of Systems Review of Systems: All systems reviewed & are unremarkable except as noted in HPI and below PMFSH Past Medical History Medical History Head ache Gallbladder disorder Crohn disease Anemia Allergies Shrimp allergy Peanut allergy Wheat allergy GERD (gastroesophageal reflux disease) MARVIN (iron deficiency anemia) Family History Family History (Updated 12/12/24 @ 13:25 by Janee Juárez CMA) Father Diabetes mellitus Social History Social History (Updated 12/12/24 @ 13:47 by Janee Juárez CMA) Smoking status: Never smoker Alcohol intake: current Alcohol use details: occasional Substance use: never Substance use type: does not use Do You Feel Safe in your Home?: Yes Lack of Transportation: No Lack of Food: Never True Current Housing: I Have Housing Concerned About Future Housing: No Difficulty Paying Gas/Electric Bills: No Difficulty Paying for Meds: No Currently Unemployed: No Education: Master's Degree or Higher Difficulty w/ Childcare or Family Care: No Exam Narrative: APPEARANCE: Well appearing, no pain, no distress, well-nourished. HEAD: normocephalic, atraumatic. EYES: PERRLA/EOMI, conjunctivae clear. NOSE: Normal no drainage EARS:TMS clear with good light reflex. THROAT: Pharynx clear, no exudate. NECK: Supple. No adenopathy, no masses. RESPIRATORY: Airway patent, respirations nonlabored. Clear to auscultation bilaterally, no rales, rhonchi, wheezing. CARDIOVASCULAR: Regular rate and rhythm without murmurs rubs or gallops. ABDOMINAL: Diffuse abdominal tenderness to palpation MUSCULOSKELETAL: Moves all extremities. Strength/ROM intact, No edema, No calf tenderness. NEURO: Alert. Cranial nerves II through XII intact. Good gait. Good coordination SKIN: Warm, dry. Normal Color Course Course Emergency Course: 49-year-old male with history of colitis presents emergency department for evaluation for abdominal bloating with nausea and some vomiting. Patient is currently afebrile with no leukocytosis hemoglobin 13.6. Patient has no acute abnormalities on his CMP UA was negative for an infection. CT scan showed no evidence of colitis. Patient was advised to follow a clear liquid diet for the next 1-3 days he will be provided Zofran and Reglan for nausea control. Patient does have follow-up with [facility]. Vital Signs Vital signs: Vital Signs Temperature 97.6 F 01/08/25 13:17 Pulse Rate 83 01/08/25 13:17 Respiratory Rate 16 01/08/25 13:17 Blood Pressure 127/77 01/08/25 13:17 Pulse Oximetry 98 01/08/25 13:17 Oxygen Delivery Room Air 01/08/25 13:17 Temperature 98.2 F 01/08/25 14:31 Pulse Rate 81 01/08/25 14:31 Respiratory Rate 16 01/08/25 14:31 Blood Pressure 117/83 01/08/25 14:31 Pulse Oximetry 100 01/08/25 14:31 Oxygen Delivery Room Air 01/08/25 14:31 Medical Decision Making [facility] Narrative Medical decision making narrative: 49-year-old male presents emergency department for evaluation for diffuse abdominal pain. Patient is currently afebrile with no leukocytosis hemoglobin 13.6. Patient has no acute abnormalities on his CMP within normal lipase. UA was negative for infection. CT scan showed no acute abnormality. Patient was treated for a he colitis and recommended follow a clear liquid diet for the next few days. Patient was also provided Reglan for nausea control. All questions concerns were addressed patient was well-appearing at time of discharge. Differential Diagnosis Differential Diagnosis: Colitis, diverticulitis, appendicitis, cholecystitis cholelithiasis, cholecystitis, enteritis Vital Signs Vital Signs: Vital Signs Temperature 97.6 F 01/08/25 13:17 Pulse Rate 83 01/08/25 13:17 Respiratory Rate 16 01/08/25 13:17 Blood Pressure 127/77 01/08/25 13:17 Pulse Oximetry 98 01/08/25 13:17 Oxygen Delivery Room Air 01/08/25 13:17 Temperature 98.2 F 01/08/25 14:31 Pulse Rate 81 01/08/25 14:31 Respiratory Rate 16 01/08/25 14:31 Blood Pressure 117/83 01/08/25 14:31 Pulse Oximetry 100 01/08/25 14:31 Oxygen Delivery Room Air 01/08/25 14:31 Lab Data Lab results reviewed: Yes I reviewed the patient's lab results. 01/08/25 14:44 01/08/25 14:44 Labs: Lab Results 01/08/25 Range/Units 14:44 WBC 7.3 (4.5-10.0) K/mm3 RBC 5.18 (4.6-6.20) M/mm3 Hgb 13.6 L (14.0-18.0) g/dL Hct 42.9 (42.0-52.0) % MCV 82.8 (80-100) fl MCH 26.3 (26-34) pg MCHC 31.7 L (32-36) g/dl RDW 16.8 H (11.5-14.5) % Plt Count 241 (150-375) k/mm3 MPV 10.1 (7.4-10.4) fl Immature Gran % (Auto) 0.3 (0-0.5) % Neut % (Auto) 65.1 (45.5-73.1) % Lymph % (Auto) 26.0 (18.3-44.2) % Mckean % (Auto) 7.5 (2.6-8.5) % Eos % (Auto) 0.8 (0-4.4) % Baso % (Auto) 0.3 (0.2-1.2) % Lymph # (Auto) 1.90 (0.9-3.2) K/mm3 Mckean # (Auto) 0.6 (0.1-0.6) K/mm3 Eos # (Auto) 0.1 (0-0.3) K/mm3 Baso # (Auto) 0.0 (0.0-0.1) K/mm3 Abs Immat Gran (auto) 0.02 (0.00-0.031) K/mm3 Absolute Neuts (auto) 4.8 (1.3-6.7) K/mm3 Absolute Nucleated RBC 0.000 (0.0-0.012) K/mm3 Nucleated RBC % 0.0 (0.0-0.2) % Sodium 137 (137-145) mmol/L Potassium 4.1 (3.4-5.0) mmol/L Chloride 101 (98-107) mmol/L Carbon Dioxide 28 (22-30) mmol/L Anion Gap 8 (4-12) mmol/L BUN 19 (9-20) mg/dL Creatinine 1.08 (0.7-1.3) mg/dL Estim Creat Clear Calc 85 ml/min Estimated GFR > 60 (59 - ) Glucose 92 (65-110) mg/dL Calcium 9.4 (8.4-10.2) mg/dL Iron 66 (49-181) ug/dL TIBC 295 (265-497) ug/dL % Saturation 22 (20-50) % Total Bilirubin 0.4 (0.2-1.3) mg/dL AST 29 (17-59) U/L ALT 32 (6-50) U/L Alkaline Phosphatase 70 (38-126) U/L Total Protein 7.6 (6.3-8.2) g/dL Albumin 4.5 (3.5-5.1) g/dL Lipase 78 (23-300) U/L Urine Color Yellow (Yellow) Urine Appearance Clear (Clear) Urine pH 6.5 (5.0-9.0) Ur Specific [place] 1.011 (1.001-1.035) Urine Protein Negative (Negative) mg/dL Urine Glucose (UA) Negative (Negative) mg/dL Urine Ketones Negative (Negative) mg/dL Ur Blood (Man) Negative (Negative) Urine Nitrate Negative (Negative) Urine Bilirubin Negative (Negative) Urine Urobilinogen 0.2 (<2.0) mg/dL Leukocyte Esterase Rfl Negative (Negative) GIRMA/UL Imaging Data Radiologist's impression: Impressions Abdomen/Pelvis CT 01/08/25 15:39 IMPRESSION: 1. No acute intra-abdominal/pelvic process. Discharge Plan Discharge Clinical Impression: Colitis, Nausea vomiting and diarrhea Patient Disposition: Home Condition: Stable Instructions: Antibiotic Form, Clear Liquid Diet (ED), Colitis (ED) Additional Instructions: Zofran for nausea control. Reglan as needed for additional nausea control. Follow a clear liquid diet for the next 1-3 days. Advance to a bland diet as tolerated. Continue have close follow-up with GI at [facility]. If you have any worsening symptoms then please call or return to the emergency department. Patient Language: Belizean Prescriptions: New ondansetron 4 mg tablet,disintegrating 4 mg PO Q8H PRN (Reason: nausea and vomiting) Qty: 14 0RF metoclopramide HCl [Reglan] 10 mg tablet 10 mg PO Q6H PRN (Reason: nausea and vomiting) Qty: 14 0RF No Action meloxicam 15 mg tablet ivabradine [Corlanor] 5 mg tablet triamcinolone acetonide 0.1 % cream 1 applic topical BID PRN (Reason: insect bite) Qty: 30 0RF esomeprazole magnesium [Nexium] 40 mg capsule,delayed release(DR/EC) 40 mg PO DAILY Follow-up/Referrals: HANDLEY, [Primary Care Provider]
[2025-01-08] MEDS: ONDANSETRON INJ 4 MG/2 ML VIAL IV PUSH (15:36)
[2025-01-08] MEDS: LACTATED RINGERS 1,000 ML 999 ML IV CONT (15:36)
[2025-01-08 16:03] LABS: Iron 66 ug/dL (49-181)
[2025-01-08 16:12] LABS: Percent Iron Saturation 22 % (20-50)
== END 2025-01-08 16:48 | disposition home or self-care (01) ==
PROVIDERS: Emergency Provider Emergency Medicine
DX: K52.9 Noninfective gastroenteritis and colitis, unspecified (principal); K50.90 Crohn's disease, unspecified, without complications; K21.9 Gastro-esophageal reflux disease without esophagitis; D50.9 Iron deficiency anemia, unspecified
CPT/HCPCS: 36415; 74177; 80053; 81003; 83540; 83550; 83690; 85025; 96361; 96374; 99284; J2405; J7120; Q9967